=== PATIENT | female | born 1960 | race Caucasian/White ===

== ENCOUNTER 2018-01-21 02:40 | Inpatient (IN) | END 2018-02-09 20:25 | disposition home health service (06) | DRG 472 ==

== ENCOUNTER 2019-01-16 20:59 | Inpatient (IN) | payer OTHER ==
[~2019-01-16] VITALS: Ht 160 cm; Wt 66.6 kg
[~2019-01-16 20:59] MED LIST: ETOMIDATE 20 MG INJ ONE; GABA100C14 PO; ROCURONIUM 50 MG INJ ONE
[2019-01-16] MEDS ORDERED: SODIUM CHLORIDE 0.9% 1L BAG IV* STA (21:19)
[2019-01-16] MEDS ORDERED: CEFEPIME 2GM/50 ML (PMX) 50 ML IVPB STA (21:19)
[2019-01-16] MEDS ORDERED: VANCOMYCIN 1 GM (PMX) 250 ML IVPB ONE (21:30)
[2019-01-16] MEDS ORDERED: PROPOFOL 100 ML ONE (21:41)
[2019-01-16] MEDS ORDERED: SOD CHLORIDE 0.9% 0 ML IV ONE (22:00)
[2019-01-16] MEDS ORDERED: PROPOFOL 100 ML IV ONE (22:00)
[2019-01-16] MEDS ORDERED: NORepinephrine 8MG/250 ML (PMX 250 ML IV SCH (22:00)
[2019-01-16] MEDS ORDERED: VANCOMYCIN IV PER PHARMACY XX SCH (23:30)
[2019-01-16] MEDS ORDERED: SODIUM BICARBONATE (IV ADD) 150 MEQ in DEXTROSE 5% 1,000 ML IV SCH (23:30)
[2019-01-16] MEDS ORDERED: PIPER-TAZO 2.25 GM (PMX) 50 ML IVPB SCH (23:30)
--- NOTE | 2019-01-16 23:32 | HP ---
Date/Time of Note Date/Time of Note DATE: 01/16/19 TIME: 23:31 Assessment/Plan VTE Prophylaxis SCD applied (from Nsg): Yes Pharmacological prophylaxis: NA/contraindicated Pharm contraindication: low risk/ambulating Lines/Catheters IV Catheter Type (from Nrsg): Saline Lock Assessment/Plan Hospital Course This is a 58-year-old female being admitted to the ICU floor for: #1 Septic shock: Secondary to pneumoperitoneum, UTI, infected wound versus other. Broad-spectrum antibiotics of vancomycin and Zosyn renally dose. Trend lactic acid levels. #2 acute ventilatory dependent respiratory failure: Secondary to underlying septic shock and severe anemia. Continue vent management. Serial ABGs. Pulmonology consultation #3 Severe macrocytic anemia: Patient noted to have a hemoglobin of 2.6. Etiology unknown at the current time. Concern for possible intra-abdominal bleeding. Will obtain a CTA of the chest abdomen and pelvis to further evaluate. Patient has been ordered 4 units of packed red blood cells By by the ED. We will continue to monitor closely. And give additional hemoglobin with goal greater than 7.5 #5 acute versus acute on chronic kidney disease with severe metabolic acidosis: Unsure of patient's baseline creatinine. This possibly could be secondary to hemodynamics, NSAID use, shock. Patient will be receiving blood transfusions. We will also put the patient on a 150 M EQ sodium bicarb drip at 100 cc an hour. Monitor renal function. Avoid NSAIDs. Renally dose antibiotics. Will consult nephrology Dr. Kirk #6 non-STEMI type I versus type II, suspect demand secondary to above. Will trend cardiac enzymes. Will check an echocardiogram. Will consult cardiology. #7 Profound leukocytosis: Etiology could be secondary to profound anemia, underlying malignancy, septic shock: Patient has been initiated on broad- spectrum antibiotics. She also will be receiving blood transfusion. Will monitor closely. She was noted to be hypothermic as well and is currently on heating therapy with a warming blanket #8 thrombocytosis: Likely secondary to profound anemia, versus other. Will monitor closely. #9 severe metabolic acidosis with lactic acidosis: Patient's pH noted to be 6.9 and a bicarb of 2 on ABG. Continue vent management. Bicarb drip and blood. #10 DVT GI prophylaxis: SCDs, Protonix Greater than 45 minutes critical care time was spent on care management this patient. CODE STATUS: Full code Result Diagram: 01/16/19212901/16/192128 Results 24hrs Laboratory Tests Test 01/16/19 21:19 01/16/19 21:28 01/16/19 21:29 01/16/19 21:30 Blood Gas Blood arterial Specimen Source Arterial Blood 01/16/2019 9:17:5 Date Drawn 3 PM Arterial Blood pH 6.902 *L (Temp corrected) Arterial Blood 10.7 L pCO2 (Temp correct) Arterial Blood 200.4 H pO2 (Temp corrected) Arterial Blood 2.1 *L HCO3 Arterial Blood -27.4 L Base Excess Arterial Blood 98.6 H Oxygen Saturation Jose Test N/A Arterial Blood Right Brachial Gas Puncture Site Arterial 1.4 Blood Carboxyhemo globin Arterial Blood 0.6 Methemoglobin Blood Gas A-a O2 501.9 H Differential Oxyhemoglobin 96.6 Percent Blood Gas 37.0 Temperature Blood Gas MASK - NRB Modality FiO2 100.0 Blood Gas Herminia FREY MD Critical Value Read Back Blood Gas AA Notified Whom Blood Gas 01/16/2019 9:27:0 Notified Time 0 PM Phosphorus Level 12.3 H Magnesium Level 2.7 H Prothrombin Time 28.8 H Prothrombin Time 2.3 Ratio INR International 2.71 Normalized Ratio Activated 33.8 Partial Thrombopl ast Time Sodium Level 139 Potassium Level 4.3 Chloride Level 97 Carbon Dioxide < 5 *L Level Anion Gap 37 H Blood Urea 92 H Nitrogen Creatinine 4.01 H Est Glomerular 12 L Filtrat Rate mL/min Glucose Level 179 Lactic Acid Level 23.3 *H Calcium Level 8.0 L Total Bilirubin 0.0 L Direct Bilirubin 0.00 Indirect 0.0 Bilirubin Aspartate Amino 100 H Transf (AST/SGOT) Alanine 34 Aminotransferase (ALT/SGPT) Alkaline 186 H Phosphatase Troponin I 0.405 *H C-Reactive 16.2 H Protein Total Protein 6.0 L Albumin 2.8 L Globulin 3.20 Albumin/Globulin 0.87 Ratio White Blood Count 91.3 H Red Blood Count 0.82 L Hemoglobin 2.3 *L Hematocrit 9.3 L Mean Corpuscular 113.4 H Volume Mean Corpuscular 28.0 L Hemoglobin Mean Corpuscular 24.7 L Hemoglobin Concen t Red Cell 26.4 H Distribution Width Platelet Count 805 H Mean Platelet 9.7 Volume Immature 21.200 H Granulocytes % Neutrophils % Segmented 52 Neutrophils % (Manual) Band Neutrophils 11 H % (Manual) Lymphocytes % Lymphocytes % 27 (Manual) Monocytes % Monocytes % 2 (Manual) Eosinophils % Basophils % Myelocytes % 7 H (Manual) Nucleated Red 4 H Blood Cells % Immature 19.330 H Granulocytes # Neutrophils # Neutrophils # 56.6 H (Manual) Band Neutrophils 10.0 H # Lymphocytes 24.6 H (Manual) Lymphocytes # Monocytes # Monocytes # 1.8 H (Manual) Eosinophils # Basophils # Myelocytes # 6.3 H Nucleated Red Blood Cells # Pathologist Y Review (Hematolog y) Platelet Estimate INCREASED Polychromasia 3+ Poikilocytosis 3+ Anisocytosis 2+ Microcytosis 1+ Macrocytosis 1+ Test 01/16/19 21:54 01/16/19 22:51 Blood Gas Blood arterial Specimen Source Arterial Blood 01/16/2019 11:16: Date Drawn 59 PM Arterial Blood pH 6.892 *L (Temp corrected) Arterial Blood 26.9 L pCO2 (Temp correct) Arterial Blood 529.7 H pO2 (Temp corrected) Arterial Blood 5.1 *L HCO3 Arterial Blood -24.4 L Base Excess Arterial Blood 99.7 H Oxygen Saturation Jose Test ACCEPTAB Arterial Blood Right Brachial Gas Puncture Site Arterial 0.1 Blood Carboxyhemo globin Arterial Blood 0.6 Methemoglobin Blood Gas A-a O2 156.4 H Differential Oxyhemoglobin 99.0 Percent Blood Gas 37.0 Temperature Blood Gas 20.0 Respiration Rate Blood Gas Actual 20 Respiration Rate Blood Gas VENT - AC Modality FiO2 100.0 Blood Gas Tidal 450.0 Volume Blood Gas EKBALJEET LOPEZ Critical Value Read Back Blood Gas MALENA CURIEL Notified Whom Blood Gas 01/16/2019 11:29: Notified Time 10 PM Urine Color YELLOW Urine Clarity TURBID A Urine pH 5.0 Urine Specific 1.015 [place] Urine Ketones NEGATIVE Urine Nitrite NEGATIVE Urine Bilirubin NEGATIVE Urine NEGATIVE Urobilinogen Urine Leukocyte 1+ H Esterase Urine Microscopic 63 H RBC Urine Microscopic > 182 H WBC Urine Yeast FEW A (Budding) Urine Hemoglobin 3+ H Urine Glucose NEGATIVE Urine Total 2+ H Protein HPI/ROS Admit Date/Time Admit Date/Time Hx of Present Illness Chief complaint: Confused and weak This is a 58-year-old female with a past medical history of ambulatory dysfunction who was found confused and weak by her sister at home. Patient was brought in via EMS and was noted to be confused but she was answering questions appropriately according to the ER doctor. Patient in the emergency department was also noted to be hypothermic and given her low GCS score patient was emergently intubated. She was found to have severe anemia with a hemoglobin of 2 along with lactic acidosis and renal failure. Patient was given a central line and she was given a warming blanket. She was initiated on antibiotics. Patient is currently intubated at the bedside. She appears to have sacral wounds as well as lateral left hip wound. She does appear very pale in appearance. Her pupils are sluggish bilaterally to light. She is currently intubated and connected to the vent. I did speak to the sister Amalia over the phone she does state that the sister lives with her and her family member. She has been in her room by herself and refusing to get help from her family members. Amalia did want to take her to the doctor's however the patient kept refusing. She was complaining of pain over the last few weeks and she had been taking ibuprofen daily. She is also having a very poor appetite. Of note it was mentioned earlier that the patient was paraplegic however when I discussed with the sister regarding her status she denied that the patient was paraplegic instead she reported that she does have weakness of 1 of her limbs that has affected her ambulation. Allergies: Unable to obtain Medications: Unable to obtain ROS Subjective hx not possible: pt critical (Intubated) PMH/Family/Social Past Medical History Unable to obtain Medications Current Medications Norepinephrine 250 ml @ 1.875 mls/ hr TITRATE IV ; Start 01/16/19 at 22:00 Sodium Bicarbonate 150 meq/Dextrose 1,000 ml @ 100 mls/hr Q10H IV ; Start 01/16/19 at 23:30; Status UNV Vancomycin HCl (Vanco Iv Per Pharmacy) VANCOMYCIN PER PHARMACY PER PROTOCOL XX ; Start 01/16/19 at 23:30; Status UNV Piperacillin Sod/ Tazobactam Sod 50 ml @ 100 mls/hr Q12 IVPB ; Start 01/16/19 at 23:30; Status UNV Coded Allergies: Unknown: Unable to obtain (Unverified , 01/16/19) Past Surgical History Unable to obtain Family History Significant Family History: other (Unable to obtain) Social History Alcohol Use: other (Previous heavy alcohol use as per the sister) Drug Use: none Exam/Review of Systems Vital Signs Vitals Vital Signs Date Temp Pulse Resp B/P (MAP) Pulse Ox O2 O2 Flow FiO2 Time Delivery Rate 01/16/19 89 15 133/69 100 Mechanical 23:00 (90) Ventilator 01/16/19 100 21:50 01/16/19 92.8 21:12 Exam Exam General: Intubated, sedated, pupils sluggish to light HEENT: Atraumatic, normocephalic. Pupils sluggish to light bilaterally, currently intubated connected to vent Neck: Supple with full range of motion. No rigidity or meningismus Chest: Nontender Lungs: Clear to auscultation bilaterally no crackles rales or wheezing Heart: Normal S1-S2, Regular rhythm and rate. No murmur, S3, or S4 Abdomen: Soft , nondistended , bowel sounds are present. No guarding no rebound tenderness , No masses or organomegaly. Extremities: Normal to inspection, no edema no cyanosis Neurologic: Intubated, sedated. Unable to assess Skin: Very pale appearing Additional Comments PROCEDURE: XR Chest. CLINICAL INDICATION: Sepsis TECHNIQUE: Single frontal view of the chest. COMPARISON: None available FINDINGS: Support lines and tubes: Endotracheal tube tip well positioned at the level of the mid tracheal shadow. Cardiac/vascular structures: Normal cardiomediastinal silhouette. Pulmonary: Lungs are clear. No pleural effusion. No evidence of pneumothorax. Osseous structures: Cervical spine hardware. Soft tissues: Normal IMPRESSION: 1. Appropriate position of endotracheal tube. 2. Lungs are clear. RPTAT:AAJJ Physician Sergio Date Time Electronically viewed and signed by Niesha Jimenez Physician on 01/16/2019 22:56 MH/ CC: ELBA FREY MD [id number] EKG Normal Sinus Rhythm at 93 bpm Normal axis QTC prolongation at [address] abnormality in the lateral and inferior leads No STEMI. BLAISE MARTINS Jan 16, 2019 23:32
[2019-01-17] VITALS (43 sets, daily range): BP systolic 97–145; BP diastolic 55–104; PULSE 85–113; RESP 11–34; BMI 20.8
[2019-01-17] MEDS ORDERED: ACETAMINOPHEN 650MG/20.3ML CUP PO PRN
[2019-01-17] MEDS ORDERED: IPRATROPIUM (HFA) 12.9 GM INHALER INH PRN
[2019-01-17] MEDS ORDERED: ALBUTEROL HFA 8 GM INHALER INH PRN
--- NOTE | 2019-01-17 00:40 | ERD ---
ER Documentation Chief Complaint Chief Complaint [id number] from home,found lethargic,hx paraplegic HPI 58-year-old female with unknown past medical history other than paraplegia brought in by ambulance from home after she was found confused and weak by her sister. Last known well was at 2 PM today. Per medics, the patient was in a very bad condition, covered in stool, poorly taken care of. She seemed cyanotic but improved with some oxygen. She was noted to be very pale. Patient is otherwise confused and unable to answer questions appropriately. ROS Limited due to patient's altered mental status Allergies Allergies: Coded Allergies: Unknown: Unable to obtain (Unverified , 01/16/19) PMhx/Soc Unable to obtain Medical and Surgical Hx: Unable to obtain Hx Alcohol Use: No (unable to obtain) Hx Substance Use: No (unable to obtain) Hx Tobacco Use: No (unable to obtain) Smoking Status: Unknown if ever smoked FmHx Unable to obtain Physical Exam Vitals Vital Signs Date Temp Pulse Resp B/P (MAP) Pulse Ox O2 O2 Flow FiO2 Time Delivery Rate 01/16/19 89 20 133/69 100 Mechanical 23:00 (90) Ventilator 01/16/19 90 20 142/78 100 Mechanical 22:30 (99) Ventilator 01/16/19 91 20 149/86 100 Mechanical 22:00 (107) Ventilator 01/16/19 92 20 100 21:50 01/16/19 95 20 108/75 100 Mechanical 21:30 (86) Ventilator 01/16/19 99 22 141/84 100 Mechanical 21:17 (103) Ventilator 01/16/19 92.8 98 24 153/87 78 21:12 (109) 01/16/19 100 24 153/87 Non 21:08 (109) Rebreather Physical Exam INITIAL VITAL SIGNS: Reviewed by me GENERAL: Patient is lying on gurney, moaning, appears toxic and very pale HEAD: Normocephalic, atraumatic EYES: No scleral icterus. Pale conjunctiva. PERRL. ENT: Mucous membranes dry, no erythema or tonsillar exudates. Airway patent. NECK: Supple. No masses. Full range of motion. RESPIRATORY: Tachypneic. Clear to auscultation bilaterally. No wheezing, No rales, No rhonchi. CV: Tachycardic with regular rhythm. No murmurs, No rubs or gallops. ABDOMEN: Soft, non-distended. No guarding. No rebound. No pulsatile mass. Bowel sounds normal. BACK: No step-offs EXTREMITIES: No edema. No clubbing or cyanosis. Cap refill is delayed. Left hip with decubitus ulcer SKIN: Warm and dry. Decreased turgor. No obvious rash, petechiae or purpura. NEUROLOGIC: Awake, confused, moaning, incomprehensible speech. Moving upper extremities spontaneously. Does not move lower extremities spontaneously. Eyes open spontaneously. Result Diagram: 01/17/19 0034 01/17/19 0034 Results 24 hrs Laboratory Tests Test 01/16/19 01:59 01/16/19 21:19 01/16/19 21:28 01/16/19 21:29 Plasma Fibrin >10 and Degradation Pro <40 ug/ml ducts D-Dimer 3367.84 ng/ml D-Dimer Comment Blood Gas Blood arterial Specimen Source Arterial Blood 01/16/2019 9:17: Date Drawn 53 PM Arterial Blood 6.902 pH (Temp corrected ) Arterial Blood 10.7 mmhg pCO2 (Temp correct) Arterial Blood 200.4 mmHG pO2 (Temp corrected ) Arterial Blood 2.1 mmol/L HCO3 Arterial Blood -27.4 mmol/L Base Excess Arterial Blood 98.6 mmHG Oxygen Saturati on Jose Test N/A Arterial Blood Right Brachial Gas Puncture Site Arterial 1.4 % Blood Carboxyhe moglobin Arterial Blood 0.6 % Methemoglobin Blood Gas A-a 501.9 mmHg O2 Differential Oxyhemoglobin 96.6 % Percent Blood Gas 37.0 C Temperature Blood Gas MASK - NRB Modality FiO2 100.0 % Blood Gas EKMEHerminia ESQUIVEL MD Critical Value Read Back Blood Gas AA Notified Whom Blood Gas 01/16/2019 9:27: Notified Time 00 PM Phosphorus 12.3 mg/dl Level Magnesium Level 2.7 mg/dl Prothrombin 28.8 Sec Time Prothrombin 2.3 Time Ratio INR 2.71 International Normalized Rati o Activated 33.8 Sec Partial Thrombo plast Time Sodium Level 139 mmol/L Potassium Level 4.3 mmol/L Chloride Level 97 mmol/L Carbon Dioxide < 5 mmol/L Level Anion Gap 37 Blood Urea 92 mg/dl Nitrogen Creatinine 4.01 mg/dl Est Glomerular 12 mL/min Filtrat Rate mL/min Glucose Level 179 mg/dl Lactic Acid 23.3 mmol/L Level Calcium Level 8.0 mg/dl Total Bilirubin 0.0 mg/dl Direct 0.00 mg/dl Bilirubin Indirect 0.0 mg/dl Bilirubin Aspartate Amino 100 IU/L Transf (AST/SGO T) Alanine 34 IU/L Aminotransferas e (ALT/SGPT) Alkaline 186 IU/L Phosphatase Troponin I 0.405 ng/ml C-Reactive 16.2 mg/dl Protein Total Protein 6.0 g/dl Albumin 2.8 g/dl Globulin 3.20 g/dl Albumin/Globuli 0.87 n Ratio Test 01/16/19 21:30 01/16/19 21:54 01/16/19 22:51 01/16/19 23:14 White Blood 91.3 10^3/ul Count Red Blood Count 0.82 10^6/ul Hemoglobin 2.3 g/dl Hematocrit 9.3 % Mean 113.4 fl Corpuscular Volume Mean 28.0 pg Corpuscular Hemoglobin Mean 24.7 g/dl Corpuscular Hemoglobin Conc ent Red Cell 26.4 % Distribution Width Platelet Count 805 10^3/UL Mean Platelet 9.7 fl Volume Immature 21.200 % Granulocytes % Neutrophils % % Segmented 52 % Neutrophils % (Manual) Band 11 % Neutrophils % (Manual) Lymphocytes % % Lymphocytes % 27 % (Manual) Monocytes % % Monocytes % 2 % (Manual) Eosinophils % % Basophils % % Myelocytes % 7 % (Manual) Nucleated Red 4 % Blood Cells % Immature 19.330 10^3/ul Granulocytes # Neutrophils # 10^3/ul Neutrophils # 56.6 10^3/ul (Manual) Band 10.0 10^3/ul Neutrophils # Lymphocytes 24.6 10^3/ul (Manual) Lymphocytes # 10^3/ul Monocytes # 10^3/ul Monocytes # 1.8 10^3/ul (Manual) Eosinophils # 10^3/ul Basophils # 10^3/ul Myelocytes # 6.3 10^3/ul Nucleated Red 10^3/ul Blood Cells # Pathologist Y Review (Hematol ogy) Platelet INCREASED Estimate Polychromasia 3+ Poikilocytosis 3+ Anisocytosis 2+ Microcytosis 1+ Macrocytosis 1+ Erythrocyte > 130.0 mm/Hr Sedimentation Rate C-Reactive 14.2 mg/dl Protein Blood Gas Blood arterial Specimen Source Arterial Blood 01/16/2019 11:16 Date Drawn :59 PM Arterial Blood 6.892 pH (Temp corrected ) Arterial Blood 26.9 mmhg pCO2 (Temp correct) Arterial Blood 529.7 mmHG pO2 (Temp corrected ) Arterial Blood 5.1 mmol/L HCO3 Arterial Blood -24.4 mmol/L Base Excess Arterial Blood 99.7 mmHG Oxygen Saturati on Jose Test ACCEPTAB Arterial Blood Right Brachial Gas Puncture Site Arterial 0.1 % Blood Carboxyhe moglobin Arterial Blood 0.6 % Methemoglobin Blood Gas A-a 156.4 mmHg O2 Differential Oxyhemoglobin 99.0 % Percent Blood Gas 37.0 C Temperature Blood Gas 20.0 Respiration Rate Blood Gas 20 Actual Respiration Rat e Blood Gas VENT - AC Modality FiO2 100.0 % Blood Gas Tidal 450.0 mL Volume Blood Gas SHANTE LOPEZ Critical Value Read Back Blood Gas MALENA MILL HELPER Notified Whom Blood Gas 01/16/2019 11:29 Notified Time :10 PM Urine Color YELLOW Urine Clarity TURBID Urine pH 5.0 Urine Specific 1.015 [place] Urine Ketones NEGATIVE mg/dL Urine Nitrite NEGATIVE mg/dL Urine Bilirubin NEGATIVE mg/dL Urine NEGATIVE mg/dL Urobilinogen Urine Leukocyte 1+ Evans/ul Esterase Urine 63 /HPF Microscopic RBC Urine > 182 /HPF Microscopic WBC Urine Yeast FEW /HPF (Budding) Urine 3+ mg/dL Hemoglobin Urine Glucose NEGATIVE mg/dL Urine Total 2+ mg/dl Protein Lactic Acid 17.8 mmol/L Level Current Medications Medications Dose Sig/Skyler Start Time Status Last (Trade) Ordered Route PRN Stop Time Admin Dose Reason Admin Sodium 1,500 ml BOLUS OVER 2 01/16/19 DC 01/16/19 Chloride HOURS STAT 21:19 21:43 (NS) IV* 01/16/19 21:23 Cefepime HCl 50 ml @ ONCE STAT 01/16/19 DC 01/16/19 100 mls/hr IVPB 21:19 21:42 01/16/19 21:48 Vancomycin 250 ml @ ONCE ONCE 01/16/19 DC 01/16/19 HCl 125 mls/hr IVPB 21:30 22:46 01/16/19 23:29 250 ml @ TITRATE IV 01/16/19 Norepinephrin 1.875 mls/ 22:00 e hr Propofol 100 ml @ 0 TITRATE 01/16/19 DC 01/16/19 mls/hr ONCE IV 22:00 22:33 01/16/19 22:01 Propofol 100 ml @ ud STK-MED 01/16/19 DC ONCE .ROUTE 21:41 01/16/19 21:42 Sodium 0 ml @ 0 Q0M ONCE 01/16/19 DC 01/16/19 Chloride mls/hr IV 22:00 23:25 01/16/19 22:01 Sodium 1,000 ml @ Q10H IV 01/16/19 01/17/19 Bicarbonate 100 mls/hr 23:30 00:42 150 meq/Dextrose Vancomycin VANCOMYCIN PER 01/16/19 HCl (Vanco PER PHARMACY PROTOCOL XX 23:30 Iv Per Pharmacy) Piperacillin 50 ml @ Q12 IVPB 01/16/19 01/17/19 Sod/ 100 mls/hr 23:30 00:29 Tazobactam Sod Procedures/MDM EMERGENT LABS AND DIAGNOSTIC STUDIES: Lab Results above were reviewed and interpreted by me. CBC: Severe leukocytosis, concerning for infection versus malignancy. Severe an emia with hemoglobin 2.1. Thrombocytosis CMP: Evidence of renal failure with severe acidosis. No evidence of electrolyte abnormality, hypoglycemia, liver failure, or biliary obstruction Troponin elevated, consistent with myocardial ischemia Lactate significantly elevated, consistent with tissue hypoperfusion and septic shock UA: Consistent with infection CRP elevated consistent with infection 12-lead EKG was interpreted by Kalina Bains MD: Normal Sinus Rhythm at 93 bpm Normal axis QTC prolongation at [address] abnormality in the lateral and inferior leads No STEMI. Radiology Results as interpreted by Radiology below were reviewed by Tamika Bains MD: Chest x-ray: Lungs clear, ET tube in appropriate location CT head shows no acute abnormalities Initial Nursing notes reviewed. Previous Medical Records requested via the Electronic Health Record. EMERGENCY DEPARTMENT COURSE / MEDICAL DECISION MAKING: Endotracheal Intubation by me: Pre assessment performed. See preceding note for details. Pre-oxygenation performed with 100% oxygen RSI: Performed w/o complication or hypoxic events. Medications as ordered. Blade: Mac 4 ET Tube: 7.5 cm Depth: 22 cm at the lip Intubation confirmed by colorimetric CO2, equal breath sounds, quiet over the stomach. Chest X-ray 1V Interpreted by me: 2 cm above the regis ET tube. Normal soft tissue, No pneumothorax. Central Line Placement by me: Patient consented, sterilely draped, full prep, gown, glove, mask, time out performed. Anesthesia: 1% lidocaine locally Location: Left IJ Device: Multiple lumen Technique: Seldinger technique. Secured with suture. Results: Venous return from all ports with easy saline flush. No complications. Guide wire retrieved and disposed of. Chest X-ray 1V Interpreted by me: Central line in SVC, Normal soft tissue, No evidence of pneumothorax. MDM Patient is presenting in a very critical condition. She was noted to have hypothermia upon arrival. Given her low GCS, she was immediately intubated. Sepsis workup was initiated. Warming measures were initiated. Broad-spectrum antibiotics and IV fluids were given. Central line was placed due to her critical condition. However the patient never required vasopressors. Labs were notable for severe anemia, for which 4 units of blood were ordered. Since she was hemodynamically stable without any signs of actual bleeding on exam, Code Crimson was not activated. Patient has many lab abnormalities consistent with multiorgan failure. patient's infectious symptoms have not stabilized and the patient is at risk of rapid decompensation. The patient will be admitted for careful hydration, an tibiotic therapy, and infectious source control. Severe Sepsis Assessment: Infectious Source: Suspected UTI End organ damage indicated by: Lactate > 2.0 mmol/L Reconnaissance Crewmember > 2.0 Severe Sepsis Management: Blood Cultures X 2 before broad spectrum antibiotics initiated within 3 hours of recognition. 30 ml/kg NS bolus Completed Initial Lactate: 23 Repeat Lactate 17 Critical Care: Time: 70 minutes Treatments/Evaluations: Emergent fluid management, while maintaining close respiratory support. Immediate broad spectrum antibiotic therapy. Simultaneous assessment for possible sources in order to direct therapy. Consideration for invasive and chemical support to prevent respiratory or cardiac collapse. Septic Shock Assessment (1 hour post 30 ml/kg fluid bolus): Hypotension (SBP < 90 or 40 mmHg drop, MAP < 65): No Lactic acid > 4.0 yes Perfusion Reassessment for Septic Shock @0100: Temp 96.1F Pulse94, RR 20, BP 110/65 Heart Exam: Regular rate and rhythm Lung Exam: No Crackles Capillary Refill: Delayed Peripheral Pulses: Radially present Skin: pale Hypotensive Treatment (not required for isolated lactic acid elevation): Comfort Care: No Central LIne: yes Vasopressor started: no Accepting Care Team: Current data and ongoing care discussed. Time: Time of admission Primary Provider: Dr. Sevilla Departure Diagnosis: Primary Impression: Septic shock Additional Impressions: Severe anemia Leukocytosis Leukocytosis type: unspecified Qualified Codes: D72.829 - Elevated white blood cell count, unspecified Acute renal failure Acute renal failure type: unspecified Qualified Codes: N17.9 - Acute kidney failure, unspecified Pyelonephritis Acute respiratory failure Respiratory failure complication: unspecified whether with hypoxia or hypercapnia Qualified Codes: J96.00 - Acute respiratory failure, unspecifi ed whether with hypoxia or hypercapnia Metabolic acidosis NSTEMI (non-ST elevated myocardial infarction) Acute encephalopathy Condition: Critical ELBA BAINS MD Jan 17, 2019 00:40
[2019-01-17] MEDS ORDERED: PANTOPRAZOLE 40 MG INJ IV SCH (06:00)
[2019-01-17] MEDS: POTASSIUM CHLORIDE 50 ML IVPB SCH ×6 (07:25→20:35)
--- NOTE | 2019-01-17 08:16 | CONS ---
Assessment/Plan Assessment/Plan Hospital Course (Demo Recall) 1) pneumoperitoneum and sepsis could be related to pt taking motrin for some pain continue with vanco/zosyn at present to renally dose them await decision by family regarding surgery vs hospice 2)severe anemia pt is being transfused only smears of stool since admission to get hemoccult 3) ARF with pyuria and hematuria improving with hydration and blood tx await urine cx results 4) elevated troponins likely due to stress from severe anemia 5) hepatitis again likely due to sepsis and severe anemia check hep serologies 6) L hip eschar/decubitus unstageable wound cx was ordered 7) hypoalbuminemia pt came in with low albumin, she has likely been sick or not eating well for a while Consultation Date/Type/Reason Admit Date/Time Date of Consultation: Jan 17, 2019 Type of Consult ID Date/Time of Note DATE: 01/17/19 TIME: 08:02 Hx of Present Illness pt comes in due to weakness and confusion pt has had pain in last few weeks and has been taking motrin for it pt has refused in the recent past to see a physician she does not have paraplegia according to the sister but only has weakness of one limb pt was emergently intubated and found to have profound anemia with renal failure Past Medical History Medications Current Medications Norepinephrine 250 ml @ 1.875 mls/ hr TITRATE IV ; Start 01/16/19 at 22:00 Sodium Bicarbonate 150 meq/Dextrose 1,000 ml @ 100 mls/hr Q10H IV Last administered on 01/17/19at 00:42; Admin Dose 100 MLS/HR; Start 01/16/19 at 23:30 Vancomycin HCl (Vanco Iv Per Pharmacy) VANCOMYCIN PER PHARMACY PER PROTOCOL XX ; Start 01/16/19 at 23:30 Piperacillin Sod/ Tazobactam Sod 50 ml @ 100 mls/hr Q12 IVPB Last administered on 01/17/19at 00:29; Admin Dose 100 MLS/HR; Start 01/16/19 at 23:30 Albuterol (Ventolin Hfa) 4 puff Q2H RESP THERAPY PRN INH SHORTNESS OF BREATH; Start 01/17/19 at 00:00 Ipratropium Pray (Atrovent Hfa) 4 puff Q2H RESP THERAPY PRN INH SHORTNESS OF BREATH; Start 01/17/19 at 00:00 Acetaminophen (Tylenol Liquid) 650 mg Q6H PRN PO PAIN LEVEL 1-3 OR FEVER; Start 01/17/19 at 00:00 Pantoprazole (Protonix Iv) 40 mg DAILY@06 IV Last administered on 01/17/19at 07:26; Admin Dose 40 MG; Start 01/17/19 at 06:00 Potassium Chloride 50 ml @ 25 mls/hr Q2H IVPB Last administered on 01/17/19at 07:25; Admin Dose 25 MLS/HR; Start 01/17/19 at 07:00; Stop 01/17/19 at 12:59 Allergies: Coded Allergies: Unknown: Unable to obtain (Unverified , 01/16/19) Social History Alcohol Use: other (Previous heavy alcohol use as per the sister) Smoking Status: Unknown if ever smoked Drug Use: none Exam/Review of Systems Exam Vitals Vital Signs Date Temp Pulse Resp B/P (MAP) Pulse Ox O2 O2 Flow FiO2 Time Delivery Rate 01/17/19 111 137/74 100 Mechanical 08:00 (95) Ventilator 01/17/19 99.8 29 07:30 01/17/19 30 06:20 Intake and Output 01/16/19 01/16/19 01/17/19 1515:00 23:00 07:00 IntakeIntake Total 50 ml 2334.5 ml OutputOutput Total 650 ml BalanceBalance 50 ml 1684.5 ml Exam intubated, NOT on pressors Constitutional: non-verbal Respiratory: clear to auscultation Cardiovascular: regular rate and rhythm Gastrointestinal: distended, other (no BS) Extremities: other (L hip eschar, unstageable but no significant surrounding redness) Results Result Diagram: 01/17/19 0430 01/17/19 0430 Results 24hrs Laboratory Tests Test 01/16/19 21:19 01/16/19 21:28 01/16/19 21:29 01/16/19 21:30 Blood Gas Blood arterial Specimen Source Arterial Blood 01/16/2019 9:17:5 Date Drawn 3 PM Arterial Blood pH 6.902 *L (Temp corrected) Arterial Blood 10.7 L pCO2 (Temp correct) Arterial Blood 200.4 H pO2 (Temp corrected) Arterial Blood 2.1 *L HCO3 Arterial Blood -27.4 L Base Excess Arterial Blood 98.6 H Oxygen Saturation Jose Test N/A Arterial Blood Right Brachial Gas Puncture Site Arterial 1.4 Blood Carboxyhemo globin Arterial Blood 0.6 Methemoglobin Blood Gas A-a O2 501.9 H Differential Oxyhemoglobin 96.6 Percent Blood Gas 37.0 Temperature Blood Gas MASK - NRB Modality FiO2 100.0 Blood Gas Herminia FREY MD Critical Value Read Back Blood Gas AA Notified Whom Blood Gas 01/16/2019 9:27:0 Notified Time 0 PM Phosphorus Level 12.3 H Magnesium Level 2.7 H Prothrombin Time 28.8 H Prothrombin Time 2.3 Ratio INR International 2.71 Normalized Ratio Activated 33.8 Partial Thrombopl ast Time Sodium Level 139 Potassium Level 4.3 Chloride Level 97 Carbon Dioxide < 5 *L Level Anion Gap 37 H Blood Urea 92 H Nitrogen Creatinine 4.01 H Est Glomerular 12 L Filtrat Rate mL/min Glucose Level 179 Lactic Acid Level 23.3 *H Calcium Level 8.0 L Total Bilirubin 0.0 L Direct Bilirubin 0.00 Indirect 0.0 Bilirubin Aspartate Amino 100 H Transf (AST/SGOT) Alanine 34 Aminotransferase (ALT/SGPT) Alkaline 186 H Phosphatase Troponin I 0.405 *H C-Reactive 16.2 H 14.2 H Protein Total Protein 6.0 L Albumin 2.8 L Globulin 3.20 Albumin/Globulin 0.87 Ratio White Blood Count 91.3 H Red Blood Count 0.82 L Hemoglobin 2.3 *L Hematocrit 9.3 L Mean Corpuscular 113.4 H Volume Mean Corpuscular 28.0 L Hemoglobin Mean Corpuscular 24.7 L Hemoglobin Concen t Red Cell 26.4 H Distribution Width Platelet Count 805 H Mean Platelet 9.7 Volume Immature 21.200 H Granulocytes % Neutrophils % Segmented 52 Neutrophils % (Manual) Band Neutrophils 11 H % (Manual) Lymphocytes % Lymphocytes % 27 (Manual) Monocytes % Monocytes % 2 (Manual) Eosinophils % Basophils % Myelocytes % 7 H (Manual) Nucleated Red 4 H Blood Cells % Immature 19.330 H Granulocytes # Neutrophils # Neutrophils # 56.6 H (Manual) Band Neutrophils 10.0 H # Lymphocytes 24.6 H (Manual) Lymphocytes # Monocytes # Monocytes # 1.8 H (Manual) Eosinophils # Basophils # Myelocytes # 6.3 H Nucleated Red Blood Cells # Pathologist Y Review (Hematolog y) Platelet Estimate INCREASED Polychromasia 3+ Poikilocytosis 3+ Anisocytosis 2+ Microcytosis 1+ Macrocytosis 1+ Erythrocyte > 130.0 H Sedimentation Rate Test 01/16/19 21:54 01/16/19 22:51 01/16/19 23:14 01/16/19 23:42 Blood Gas Blood arterial Specimen Source Arterial Blood 01/16/2019 11:16: Date Drawn 59 PM Arterial Blood pH 6.892 *L (Temp corrected) Arterial Blood 26.9 L pCO2 (Temp correct) Arterial Blood 529.7 H pO2 (Temp corrected) Arterial Blood 5.1 *L HCO3 Arterial Blood -24.4 L Base Excess Arterial Blood 99.7 H Oxygen Saturation Jose Test ACCEPTAB Arterial Blood Right Brachial Gas Puncture Site Arterial 0.1 Blood Carboxyhemo globin Arterial Blood 0.6 Methemoglobin Blood Gas A-a O2 156.4 H Differential Oxyhemoglobin 99.0 Percent Blood Gas 37.0 Temperature Blood Gas 20.0 Respiration Rate Blood Gas Actual 20 Respiration Rate Blood Gas VENT - AC Modality FiO2 100.0 Blood Gas Tidal 450.0 Volume Blood Gas EKBALJEET LOPEZ Critical Value Read Back Blood Gas MALENA PAYROLL BOOKKEEPER Notified Whom Blood Gas 01/16/2019 11:29: Notified Time 10 PM Urine Color YELLOW Urine Clarity TURBID A Urine pH 5.0 Urine Specific 1.015 [place] Urine Ketones NEGATIVE Urine Nitrite NEGATIVE Urine Bilirubin NEGATIVE Urine NEGATIVE Urobilinogen Urine Leukocyte 1+ H Esterase Urine Microscopic 63 H RBC Urine Microscopic > 182 H WBC Urine Yeast FEW A (Budding) Urine Hemoglobin 3+ H Urine Glucose NEGATIVE Urine Total 2+ H Protein Lactic Acid Level 17.8 *H Fibrinogen 343.0 Test 01/17/19 00:34 01/17/19 02:02 01/17/19 04:30 01/17/19 05:27 White Blood Count 60.8 #H 14.4 #H Red Blood Count 1.15 #L 1.89 #L Hemoglobin 3.3 #*L 5.4 #*L Hematocrit 12.1 #L 17.0 #L Mean Corpuscular 105.2 H 89.9 Volume Mean Corpuscular 28.7 L 28.6 L Hemoglobin Mean Corpuscular 27.3 L 31.8 L Hemoglobin Concen t Red Cell 19.9 #H 16.0 H Distribution Width Platelet Count 553 #H 312 # Mean Platelet 9.5 9.1 Volume Immature 23.200 H 14.400 H Granulocytes % Neutrophils % Segmented 57 73 Neutrophils % (Manual) Band Neutrophils 13 H 10 H % (Manual) Lymphocytes % Lymphocytes % 18 13 L (Manual) Monocytes % Monocytes % 5 (Manual) Eosinophils % Basophils % 1 (Manual) Metamyelocytes % 1 H 2 H (manual) Myelocytes % 3 H 1 H (Manual) Promyelocytes % 2 H (Manual) Nucleated Red 1.4 H 1 H Blood Cells % Immature 14.100 H 2.080 H Granulocytes # Neutrophils # Neutrophils # 39.5 H 10.7 H (Manual) Band Neutrophils 7.9 H 1.4 H # Lymphocytes 10.9 H 1.8 (Manual) Lymphocytes # Monocytes # Monocytes # 3.0 H (Manual) Eosinophils # Basophils # 0.6 H (Manual) Metamyelocytes # 0.6 H 0.2 H Myelocytes # 1.8 H 0.1 H Promyelocytes # 1.2 H Platelet Estimate INCREASED NORMAL Giant Platelets 2 H Polychromasia 3+ 2+ Poikilocytosis 3+ 2+ Anisocytosis 3+ 2+ Microcytosis 2+ 1+ Macrocytosis 2+ 2+ Sodium Level 142 141 Potassium Level 3.5 2.7 *L Chloride Level 101 100 Carbon Dioxide 6 *L 17 #L Level Anion Gap 35 H 24 #H Blood Urea 89 H 92 H Nitrogen Creatinine 3.55 H 3.12 H Est Glomerular 13 L 15 L Filtrat Rate mL/min Glucose Level 128 # 197 Calcium Level 7.2 L 6.7 L Total Bilirubin 0.0 L 0.0 L Direct Bilirubin 0.00 0.00 Indirect 0.0 0.0 Bilirubin Aspartate Amino 186 H 433 H Transf (AST/SGOT) Alanine 48 130 H Aminotransferase (ALT/SGPT) Alkaline 171 H 168 H Phosphatase Creatine Kinase 297 H 323 H Creatine Kinase 4.2 4.9 Index Creatinine Kinase 12.50 H 15.70 H MB (Mass) Troponin I 0.870 *H 1.820 *H Total Protein 5.4 L 4.8 L Albumin 2.5 L 2.2 L Globulin 2.90 2.60 Albumin/Globulin 0.86 0.84 Ratio Lactic Acid Level 10.5 *H 4.6 *H Eosinophils % 1 (Manual) Basophils % Basophils # Nucleated Red Blood Cells # Dimorphic Red 1+ Blood Cells Thyroid 1.720 Stimulating Hormone (TSH) Prothrombin Time 22.2 #H Prothrombin Time 1.7 Ratio INR International 1.94 Normalized Ratio Activated 31.1 Partial Thrombopl ast Time Test 01/17/19 06:00 Blood Gas Blood arterial Specimen Source Arterial Blood 01/17/2019 6:10:2 Date Drawn 3 AM Arterial Blood pH 7.414 (Temp corrected) Arterial Blood 26.5 L pCO2 (Temp correct) Arterial Blood 183.1 H pO2 (Temp corrected) Arterial Blood 16.6 L HCO3 Arterial Blood -7.1 L Base Excess Arterial Blood 98.6 H Oxygen Saturation Jose Test ACCEPTAB Arterial Blood Right Radial Gas Puncture Site Arterial 0.3 Blood Carboxyhemo globin Arterial Blood 0.3 Methemoglobin Blood Gas A-a O2 71.6 H Differential Oxyhemoglobin 98.0 Percent Blood Gas 37.0 Temperature Blood Gas 20.0 Respiration Rate Blood Gas Actual 24 Respiration Rate Blood Gas VENT - AC Modality FiO2 40.0 Blood Gas Tidal 450.0 Volume Blood Gas 17.0 Inspiratory Pressure Blood Gas MG Notified Whom Blood Gas 01/17/2019 6:17:2 Notified Time 8 AM Medications Medication Current Medications Norepinephrine 250 ml @ 1.875 mls/ hr TITRATE IV ; Start 01/16/19 at 22:00 Sodium Bicarbonate 150 meq/Dextrose 1,000 ml @ 100 mls/hr Q10H IV Last administered on 01/17/19at 00:42; Admin Dose 100 MLS/HR; Start 01/16/19 at 23:30 Vancomycin HCl (Vanco Iv Per Pharmacy) VANCOMYCIN PER PHARMACY PER PROTOCOL XX ; Start 01/16/19 at 23:30 Piperacillin Sod/ Tazobactam Sod 50 ml @ 100 mls/hr Q12 IVPB Last administered on 01/17/19at 00:29; Admin Dose 100 MLS/HR; Start 01/16/19 at 23:30 Albuterol (Ventolin Hfa) 4 puff Q2H RESP THERAPY PRN INH SHORTNESS OF BREATH; Start 01/17/19 at 00:00 Ipratropium Pray (Atrovent Hfa) 4 puff Q2H RESP THERAPY PRN INH SHORTNESS OF BREATH; Start 01/17/19 at 00:00 Acetaminophen (Tylenol Liquid) 650 mg Q6H PRN PO PAIN LEVEL 1-3 OR FEVER; Start 01/17/19 at 00:00 Pantoprazole (Protonix Iv) 40 mg DAILY@06 IV Last administered on 01/17/19at 07:26; Admin Dose 40 MG; Start 01/17/19 at 06:00 Potassium Chloride 50 ml @ 25 mls/hr Q2H IVPB Last administered on 01/17/19at 07:25; Admin Dose 25 MLS/HR; Start 01/17/19 at 07:00; Stop 01/17/19 at 12:59 PATSY LEVY MD Jan 17, 2019 08:12
--- NOTE | 2019-01-17 08:56 | CONS ---
DATE OF ADMISSION: 01/16/2019 DATE OF CONSULTATION: 01/17/2019 TYPE OF CONSULTATION: Nephrology. REASON FOR CONSULTATION: Acute kidney injury. PHYSICIAN REQUESTING CONSULT: Dr. Martins. HISTORY OF PRESENT ILLNESS: This is a 58-year-old female with a past medical history of ambulatory d ysfunction who was found a weak at her sister's home. EMS service was called. The patient was broug ht into the emergency room. Upon arrival, she was hypothermic. The patient was found to be anemic w ith a hemoglobin of 2 with severe lactic acidosis, renal failure. The patient was intubated at the [facility]. In the emergency room, the patient was typed and crossed and transfused PRBC. The patient a lso had a CT scan of abdomen and pelvis, which showed pneumoperitoneum compatible with perforated hol low viscus. The patient also had possible emphysematous cystitis, possible fistula with adjacent col on. The patient was transferred to intensive care unit. General surgery was consulted and stated th e patient is clinically unstable for surgery at this time. The patient was placed on IV fluids and p laced on bicarbonate drip and antibiotic therapy. In terms of patient's renal history, the patient's baseline creatinine is unknown. The patient on ad mission had a creatinine of 4.0, which is improved with IV hydration and volume support. The patient does have urinary output. There have been no reports of any rashes or hemoptysis. PAST MEDICAL HISTORY: Unknown. PAST SURGICAL HISTORY: Unknown. ALLERGIES: Unknown. FAMILY HISTORY: Unknown. SOCIAL HISTORY: Reported history of alcohol use. MEDICATIONS: The patient's medications have been reviewed. REVIEW OF SYSTEMS: Unable to do adequate review of systems. The patient is obtunded. Pertinent pos itives as obtained by reviewing medical records, speaking to hospital staff stated in HPI, otherwise negative. PHYSICAL EXAMINATION: VITAL SIGNS: Blood pressure is 137/74, respirations 29, pulse 113, temperature 99.8. HEENT: Head is normocephalic. NECK: Supple. HEART: Regular rate. LUNGS: Show diminished breath sounds at the base. ABDOMEN: Soft, nontender to palpation without rebound or guarding. EXTREMITIES: Negative for clubbing, cyanosis. No edema. DERMATOLOGIC: No rashes. MUSCULOSKELETAL: No joint effusion. NEUROLOGIC: No change in exam. LABORATORY DATA: Shows sodium 141, potassium 2.7, chloride 100, BUN 92, creatinine 3.12. Lactic aci d 4.6. AST, ALT reviewed. Troponin 1.82. White count 14.4, hemoglobin 5.4, platelet count is 312. INR was reviewed. Urinalysis was reviewed. IMAGING STUDIES: Reviewed. ASSESSMENT AND PLAN: This is a 58-year-old female who presents with: 1. Nonoliguric acute kidney injury with unknown baseline creatinine. Etiology is multifactorial sec ondary to hemodynamics from volume depletion, likely tubular injury due to ischemia, severe anemia an d NSAID use. The patient's urinalysis was reviewed, showed significant pyuria or hematuria. The pos sibility of interstitial nephritis is also a consideration. Recommendation at this point is to yoni nue current medical management. Continue volume expansion. Continue IV fluids, continue bicarbonate drip. Continue blood transfusion. We will continue pressor support as needed to maintain MAP of ab ove 65. Continue IV antibiotics. The patient's creatinine has slowly been improving with volume sup port. No immediate need for renal placement therapy and monitor closely. 2. Hypokalemia. We will replete with potassium chloride. Monitor closely. 3. Metabolic acidosis secondary to lactic acidosis. The patient's ABG has improved on bicarbonate d rip. We will continue to monitor. 4. Lactic acidosis secondary to shock, severe anemia. Lactic acid levels are improving. Continue t o monitor. Continue to treat underlying anemia and shock. 5. Septic shock secondary to pneumoperitoneum and urinary tract infection. Continue broad spectrum antibiotics, continue to trend lactic acid levels. Continue IV fluids and pressor support. 6. Ventilator-dependent respiratory failure. Vent settings and ABG was reviewed. Continue to monit or. 7. Severe anemia, etiology is likely secondary to active bleed from NSAID use, perforated hallow vis cus. The patient is status post blood transfusion. Continue to monitor hemoglobin and hematocrit le vels. 8. Perforated hollow viscus. Etiology is likely from NSAID use, peptic ulcer disease. General surg noel has been consulted. Currently, unstable for surgery. We will continue to monitor. Follow up re commendations. 9. Leukocytosis. Etiology is multifactorial secondary to sepsis, and reactive due to severe anemia. Continue current medical management. WBCs have been trending down. 10. Thrombocytosis. Continue to monitor. Etiology is likely reactive. 11. Transaminitis. Continue to monitor. Etiology may be secondary to hepatitis is also etiology ma y be due to hepatitis versus ischemia. 12. Acute encephalopathy, etiology is toxic metabolic. Thank you, Dr. Martins, for this interesting consult. It will be a pleasure to follow the patient wi th you throughout the hospital course. Dictated By: SHAW OLMSTEAD DO NR/NTS Conf#: [id number] DID#: [id number] CC: BLAISE MARTINS MD;*EndCC*
--- NOTE | 2019-01-17 10:08 | CONS ---
DATE OF ADMISSION: 01/16/2019 DATE OF CONSULTATION: REASON FOR CONSULTATION: Ventilator management. Thank you, Dr. Sevilla, for this consultation. HISTORY OF PRESENT ILLNESS: This is a 58-year-old lady found by family to be confused with significa nt weakness, hypothermia and poor living conditions brought to the emergency room and emergently intu bated given her low GCS and was found to have a hemoglobin of 2 with no evidence of overt bleeding. She has history of poor appetite, possible severe depression and paraplegia and significant decubitus ulcers. She has received a transfusion of packed red blood cells since admission. Continues intuba tion and mechanical ventilation and currently remains tenuous. PAST MEDICAL HISTORY: As above. MEDICATIONS: Per chart. ALLERGIES: UNKNOWN. SOCIAL HISTORY: Nonsmoker with history of significant alcohol intake in the past. SYSTEMS REVIEW: A 12-point review of systems unable to be performed. PHYSICAL EXAMINATION: GENERAL: Chronically ill appearing lady on mechanical ventilation. VITAL SIGNS: Currently afebrile, pulse is 110, blood pressure 130/74, O2 saturation 96%, FIO2 of 30% . NECK: Supple, no JVD or lymphadenopathy. CARDIAC: S1, S2, no added sounds or murmurs. CHEST: Diminished air entry bilaterally. ABDOMEN: Mildly distended. EXTREMITIES: No cyanosis, clubbing, edema. NEUROLOGIC: Unable to assess. IMAGING: Chest x-ray shows bilateral atelectasis. Brain CT shows atrophy. LABORATORY DATA: White count initially 91.3, now 14, hemoglobin 2.3, now 5.4, platelets of 312. BUN 92, creatinine 3.12. Lactic acid initially 10.5, now . Troponin 1.8. INR was 1.9. ABG initi ally pH 6.9, now 7.4. pCO2 of 26, pO2 of 183. IMPRESSION AND PLAN: 1. Severe anemia, questionable ongoing chronic bleeding. 2. Marked metabolic acidosis. 3. Severe sepsis. 4. Encephalopathy, toxic metabolic. 5. History of paraplegia per chart. 6. Renal failure, likely prerenal. 7. Non-ST elevation myocardial infarction, likely secondary to hypoperfusion. The patient will require: 1. Continued vent support. 2. Transfusion of packed red blood cells. 3. Broad-spectrum antibiotics. 4. Gastrointestinal evaluation for colonoscopy, endoscopy. 5. Questionable perforated viscus and surgical recommendations. 6. DVT and GI prophylaxis. Dictated By: HIWOT ODELL MD SV/CRISTY Conf#: [id number] DID#: [id number] CC: ALLISON WOLFF MD; BLAISE SEVILLA MD;*EndCC*
--- NOTE | 2019-01-17 10:13 | PN ---
Date/Time of Note Date/Time of Note DATE: 01/17/19 TIME: 10:09 Assessment/Plan VTE Prophylaxis Risk score (from Nsg)>0 risk: 8 Pharmacological prophylaxis: other Lines/Catheters IV Catheter Type (from Nrsg): Central Line Central line still needed: Yes Urinary Cath still in place: Yes Reason Cath still needed: other (indicate) Assessment/Plan Hospital Course See progress note by Dr Robins. Result Diagram: 01/17/19 0430 01/17/19 0430 Results 24hrs Laboratory Tests Test 01/16/19 21:19 01/16/19 21:28 01/16/19 21:29 01/16/19 21:30 Blood Gas Blood arterial Specimen Source Arterial Blood 01/16/2019 9:17:5 Date Drawn 3 PM Arterial Blood pH 6.902 *L (Temp corrected) Arterial Blood 10.7 L pCO2 (Temp correct) Arterial Blood 200.4 H pO2 (Temp corrected) Arterial Blood 2.1 *L HCO3 Arterial Blood -27.4 L Base Excess Arterial Blood 98.6 H Oxygen Saturation Jose Test N/A Arterial Blood Right Brachial Gas Puncture Site Arterial 1.4 Blood Carboxyhemo globin Arterial Blood 0.6 Methemoglobin Blood Gas A-a O2 501.9 H Differential Oxyhemoglobin 96.6 Percent Blood Gas 37.0 Temperature Blood Gas MASK - NRB Modality FiO2 100.0 Blood Gas Herminia FREY MD Critical Value Read Back Blood Gas AA Notified Whom Blood Gas 01/16/2019 9:27:0 Notified Time 0 PM Phosphorus Level 12.3 H Magnesium Level 2.7 H Prothrombin Time 28.8 H Prothrombin Time 2.3 Ratio INR International 2.71 Normalized Ratio Activated 33.8 Partial Thrombopl ast Time Sodium Level 139 Potassium Level 4.3 Chloride Level 97 Carbon Dioxide < 5 *L Level Anion Gap 37 H Blood Urea 92 H Nitrogen Creatinine 4.01 H Est Glomerular 12 L Filtrat Rate mL/min Glucose Level 179 Lactic Acid Level 23.3 *H Calcium Level 8.0 L Total Bilirubin 0.0 L Direct Bilirubin 0.00 Indirect 0.0 Bilirubin Aspartate Amino 100 H Transf (AST/SGOT) Alanine 34 Aminotransferase (ALT/SGPT) Alkaline 186 H Phosphatase Troponin I 0.405 *H C-Reactive 16.2 H 14.2 H Protein Total Protein 6.0 L Albumin 2.8 L Globulin 3.20 Albumin/Globulin 0.87 Ratio White Blood Count 91.3 H Red Blood Count 0.82 L Hemoglobin 2.3 *L Hematocrit 9.3 L Mean Corpuscular 113.4 H Volume Mean Corpuscular 28.0 L Hemoglobin Mean Corpuscular 24.7 L Hemoglobin Concen t Red Cell 26.4 H Distribution Width Platelet Count 805 H Mean Platelet 9.7 Volume Immature 21.200 H Granulocytes % Neutrophils % Segmented 52 Neutrophils % (Manual) Band Neutrophils 11 H % (Manual) Lymphocytes % Lymphocytes % 27 (Manual) Monocytes % Monocytes % 2 (Manual) Eosinophils % Basophils % Myelocytes % 7 H (Manual) Nucleated Red 4 H Blood Cells % Immature 19.330 H Granulocytes # Neutrophils # Neutrophils # 56.6 H (Manual) Band Neutrophils 10.0 H # Lymphocytes 24.6 H (Manual) Lymphocytes # Monocytes # Monocytes # 1.8 H (Manual) Eosinophils # Basophils # Myelocytes # 6.3 H Nucleated Red Blood Cells # Pathologist Y Review (Hematolog y) Platelet Estimate INCREASED Polychromasia 3+ Poikilocytosis 3+ Anisocytosis 2+ Microcytosis 1+ Macrocytosis 1+ Erythrocyte > 130.0 H Sedimentation Rate Test 01/16/19 21:54 01/16/19 22:51 01/16/19 23:14 01/16/19 23:42 Blood Gas Blood arterial Specimen Source Arterial Blood 01/16/2019 11:16: Date Drawn 59 PM Arterial Blood pH 6.892 *L (Temp corrected) Arterial Blood 26.9 L pCO2 (Temp correct) Arterial Blood 529.7 H pO2 (Temp corrected) Arterial Blood 5.1 *L HCO3 Arterial Blood -24.4 L Base Excess Arterial Blood 99.7 H Oxygen Saturation Jose Test ACCEPTAB Arterial Blood Right Brachial Gas Puncture Site Arterial 0.1 Blood Carboxyhemo globin Arterial Blood 0.6 Methemoglobin Blood Gas A-a O2 156.4 H Differential Oxyhemoglobin 99.0 Percent Blood Gas 37.0 Temperature Blood Gas 20.0 Respiration Rate Blood Gas Actual 20 Respiration Rate Blood Gas VENT - AC Modality FiO2 100.0 Blood Gas Tidal 450.0 Volume Blood Gas SHANTE LOPEZ Critical Value Read Back Blood Gas MALENA CURIEL Notified Whom Blood Gas 01/16/2019 11:29: Notified Time 10 PM Urine Color YELLOW Urine Clarity TURBID A Urine pH 5.0 Urine Specific 1.015 [place] Urine Ketones NEGATIVE Urine Nitrite NEGATIVE Urine Bilirubin NEGATIVE Urine NEGATIVE Urobilinogen Urine Leukocyte 1+ H Esterase Urine Microscopic 63 H RBC Urine Microscopic > 182 H WBC Urine Yeast FEW A (Budding) Urine Hemoglobin 3+ H Urine Glucose NEGATIVE Urine Total 2+ H Protein Lactic Acid Level 17.8 *H Fibrinogen 343.0 Test 01/17/19 00:34 01/17/19 02:02 01/17/19 04:30 01/17/19 05:27 White Blood Count 60.8 #H 14.4 #H Red Blood Count 1.15 #L 1.89 #L Hemoglobin 3.3 #*L 5.4 #*L Hematocrit 12.1 #L 17.0 #L Mean Corpuscular 105.2 H 89.9 Volume Mean Corpuscular 28.7 L 28.6 L Hemoglobin Mean Corpuscular 27.3 L 31.8 L Hemoglobin Concen t Red Cell 19.9 #H 16.0 H Distribution Width Platelet Count 553 #H 312 # Mean Platelet 9.5 9.1 Volume Immature 23.200 H 14.400 H Granulocytes % Neutrophils % Segmented 57 73 Neutrophils % (Manual) Band Neutrophils 13 H 10 H % (Manual) Lymphocytes % Lymphocytes % 18 13 L (Manual) Monocytes % Monocytes % 5 (Manual) Eosinophils % Basophils % 1 (Manual) Metamyelocytes % 1 H 2 H (manual) Myelocytes % 3 H 1 H (Manual) Promyelocytes % 2 H (Manual) Nucleated Red 1.4 H 1 H Blood Cells % Immature 14.100 H 2.080 H Granulocytes # Neutrophils # Neutrophils # 39.5 H 10.7 H (Manual) Band Neutrophils 7.9 H 1.4 H # Lymphocytes 10.9 H 1.8 (Manual) Lymphocytes # Monocytes # Monocytes # 3.0 H (Manual) Eosinophils # Basophils # 0.6 H (Manual) Metamyelocytes # 0.6 H 0.2 H Myelocytes # 1.8 H 0.1 H Promyelocytes # 1.2 H Platelet Estimate INCREASED NORMAL Giant Platelets 2 H Polychromasia 3+ 2+ Poikilocytosis 3+ 2+ Anisocytosis 3+ 2+ Microcytosis 2+ 1+ Macrocytosis 2+ 2+ Sodium Level 142 141 Potassium Level 3.5 2.7 *L Chloride Level 101 100 Carbon Dioxide 6 *L 17 #L Level Anion Gap 35 H 24 #H Blood Urea 89 H 92 H Nitrogen Creatinine 3.55 H 3.12 H Est Glomerular 13 L 15 L Filtrat Rate mL/min Glucose Level 128 # 197 Calcium Level 7.2 L 6.7 L Total Bilirubin 0.0 L 0.0 L Direct Bilirubin 0.00 0.00 Indirect 0.0 0.0 Bilirubin Aspartate Amino 186 H 433 H Transf (AST/SGOT) Alanine 48 130 H Aminotransferase (ALT/SGPT) Alkaline 171 H 168 H Phosphatase Creatine Kinase 297 H 323 H Creatine Kinase 4.2 4.9 Index Creatinine Kinase 12.50 H 15.70 H MB (Mass) Troponin I 0.870 *H 1.820 *H Total Protein 5.4 L 4.8 L Albumin 2.5 L 2.2 L Globulin 2.90 2.60 Albumin/Globulin 0.86 0.84 Ratio Lactic Acid Level 10.5 *H 4.6 *H Eosinophils % 1 (Manual) Basophils % Basophils # Nucleated Red Blood Cells # Dimorphic Red 1+ Blood Cells Thyroid 1.720 Stimulating Hormone (TSH) Prothrombin Time 22.2 #H Prothrombin Time 1.7 Ratio INR International 1.94 Normalized Ratio Activated 31.1 Partial Thrombopl ast Time Test 01/17/19 06:00 Blood Gas Blood arterial Specimen Source Arterial Blood 01/17/2019 6:10:2 Date Drawn 3 AM Arterial Blood pH 7.414 (Temp corrected) Arterial Blood 26.5 L pCO2 (Temp correct) Arterial Blood 183.1 H pO2 (Temp corrected) Arterial Blood 16.6 L HCO3 Arterial Blood -7.1 L Base Excess Arterial Blood 98.6 H Oxygen Saturation Jose Test ACCEPTAB Arterial Blood Right Radial Gas Puncture Site Arterial 0.3 Blood Carboxyhemo globin Arterial Blood 0.3 Methemoglobin Blood Gas A-a O2 71.6 H Differential Oxyhemoglobin 98.0 Percent Blood Gas 37.0 Temperature Blood Gas 20.0 Respiration Rate Blood Gas Actual 24 Respiration Rate Blood Gas VENT - AC Modality FiO2 40.0 Blood Gas Tidal 450.0 Volume Blood Gas 17.0 Inspiratory Pressure Blood Gas MG Notified Whom Blood Gas 01/17/2019 6:17:2 Notified Time 8 AM Exam/Review of Systems Exam Vitals Vital Signs Date Temp Pulse Resp B/P (MAP) Pulse Ox O2 O2 Flow FiO2 Time Delivery Rate 01/17/19 113 08:00 01/17/19 137/74 100 Mechanical 08:00 (95) Ventilator 01/17/19 99.8 29 07:30 01/17/19 30 06:20 Intake and Output 01/16/19 01/16/19 01/17/19 1515:00 23:00 07:00 IntakeIntake Total 50 ml 2334.5 ml OutputOutput Total 650 ml BalanceBalance 50 ml 1684.5 ml Results Results 24hrs Laboratory Tests Test 01/16/19 21:19 01/16/19 21:28 01/16/19 21:29 01/16/19 21:30 Blood Gas Blood arterial Specimen Source Arterial Blood 01/16/2019 9:17:5 Date Drawn 3 PM Arterial Blood pH 6.902 *L (Temp corrected) Arterial Blood 10.7 L pCO2 (Temp correct) Arterial Blood 200.4 H pO2 (Temp corrected) Arterial Blood 2.1 *L HCO3 Arterial Blood -27.4 L Base Excess Arterial Blood 98.6 H Oxygen Saturation Jose Test N/A Arterial Blood Right Brachial Gas Puncture Site Arterial 1.4 Blood Carboxyhemo globin Arterial Blood 0.6 Methemoglobin Blood Gas A-a O2 501.9 H Differential Oxyhemoglobin 96.6 Percent Blood Gas 37.0 Temperature Blood Gas MASK - NRB Modality FiO2 100.0 Blood Gas EKHerminia DELONG MD Critical Value Read Back Blood Gas AA Notified Whom Blood Gas 01/16/2019 9:27:0 Notified Time 0 PM Phosphorus Level 12.3 H Magnesium Level 2.7 H Prothrombin Time 28.8 H Prothrombin Time 2.3 Ratio INR International 2.71 Normalized Ratio Activated 33.8 Partial Thrombopl ast Time Sodium Level 139 Potassium Level 4.3 Chloride Level 97 Carbon Dioxide < 5 *L Level Anion Gap 37 H Blood Urea 92 H Nitrogen Creatinine 4.01 H Est Glomerular 12 L Filtrat Rate mL/min Glucose Level 179 Lactic Acid Level 23.3 *H Calcium Level 8.0 L Total Bilirubin 0.0 L Direct Bilirubin 0.00 Indirect 0.0 Bilirubin Aspartate Amino 100 H Transf (AST/SGOT) Alanine 34 Aminotransferase (ALT/SGPT) Alkaline 186 H Phosphatase Troponin I 0.405 *H C-Reactive 16.2 H 14.2 H Protein Total Protein 6.0 L Albumin 2.8 L Globulin 3.20 Albumin/Globulin 0.87 Ratio White Blood Count 91.3 H Red Blood Count 0.82 L Hemoglobin 2.3 *L Hematocrit 9.3 L Mean Corpuscular 113.4 H Volume Mean Corpuscular 28.0 L Hemoglobin Mean Corpuscular 24.7 L Hemoglobin Concen t Red Cell 26.4 H Distribution Width Platelet Count 805 H Mean Platelet 9.7 Volume Immature 21.200 H Granulocytes % Neutrophils % Segmented 52 Neutrophils % (Manual) Band Neutrophils 11 H % (Manual) Lymphocytes % Lymphocytes % 27 (Manual) Monocytes % Monocytes % 2 (Manual) Eosinophils % Basophils % Myelocytes % 7 H (Manual) Nucleated Red 4 H Blood Cells % Immature 19.330 H Granulocytes # Neutrophils # Neutrophils # 56.6 H (Manual) Band Neutrophils 10.0 H # Lymphocytes 24.6 H (Manual) Lymphocytes # Monocytes # Monocytes # 1.8 H (Manual) Eosinophils # Basophils # Myelocytes # 6.3 H Nucleated Red Blood Cells # Pathologist Y Review (Hematolog y) Platelet Estimate INCREASED Polychromasia 3+ Poikilocytosis 3+ Anisocytosis 2+ Microcytosis 1+ Macrocytosis 1+ Erythrocyte > 130.0 H Sedimentation Rate Test 01/16/19 21:54 01/16/19 22:51 01/16/19 23:14 01/16/19 23:42 Blood Gas Blood arterial Specimen Source Arterial Blood 01/16/2019 11:16: Date Drawn 59 PM Arterial Blood pH 6.892 *L (Temp corrected) Arterial Blood 26.9 L pCO2 (Temp correct) Arterial Blood 529.7 H pO2 (Temp corrected) Arterial Blood 5.1 *L HCO3 Arterial Blood -24.4 L Base Excess Arterial Blood 99.7 H Oxygen Saturation Jose Test ACCEPTAB Arterial Blood Right Brachial Gas Puncture Site Arterial 0.1 Blood Carboxyhemo globin Arterial Blood 0.6 Methemoglobin Blood Gas A-a O2 156.4 H Differential Oxyhemoglobin 99.0 Percent Blood Gas 37.0 Temperature Blood Gas 20.0 Respiration Rate Blood Gas Actual 20 Respiration Rate Blood Gas VENT - AC Modality FiO2 100.0 Blood Gas Tidal 450.0 Volume Blood Gas EKBALJEET LOPEZ Critical Value Read Back Blood Gas MALENA CURIEL Notified Whom Blood Gas 01/16/2019 11:29: Notified Time 10 PM Urine Color YELLOW Urine Clarity TURBID A Urine pH 5.0 Urine Specific 1.015 [place] Urine Ketones NEGATIVE Urine Nitrite NEGATIVE Urine Bilirubin NEGATIVE Urine NEGATIVE Urobilinogen Urine Leukocyte 1+ H Esterase Urine Microscopic 63 H RBC Urine Microscopic > 182 H WBC Urine Yeast FEW A (Budding) Urine Hemoglobin 3+ H Urine Glucose NEGATIVE Urine Total 2+ H Protein Lactic Acid Level 17.8 *H Fibrinogen 343.0 Test 01/17/19 00:34 01/17/19 02:02 01/17/19 04:30 01/17/19 05:27 White Blood Count 60.8 #H 14.4 #H Red Blood Count 1.15 #L 1.89 #L Hemoglobin 3.3 #*L 5.4 #*L Hematocrit 12.1 #L 17.0 #L Mean Corpuscular 105.2 H 89.9 Volume Mean Corpuscular 28.7 L 28.6 L Hemoglobin Mean Corpuscular 27.3 L 31.8 L Hemoglobin Concen t Red Cell 19.9 #H 16.0 H Distribution Width Platelet Count 553 #H 312 # Mean Platelet 9.5 9.1 Volume Immature 23.200 H 14.400 H Granulocytes % Neutrophils % Segmented 57 73 Neutrophils % (Manual) Band Neutrophils 13 H 10 H % (Manual) Lymphocytes % Lymphocytes % 18 13 L (Manual) Monocytes % Monocytes % 5 (Manual) Eosinophils % Basophils % 1 (Manual) Metamyelocytes % 1 H 2 H (manual) Myelocytes % 3 H 1 H (Manual) Promyelocytes % 2 H (Manual) Nucleated Red 1.4 H 1 H Blood Cells % Immature 14.100 H 2.080 H Granulocytes # Neutrophils # Neutrophils # 39.5 H 10.7 H (Manual) Band Neutrophils 7.9 H 1.4 H # Lymphocytes 10.9 H 1.8 (Manual) Lymphocytes # Monocytes # Monocytes # 3.0 H (Manual) Eosinophils # Basophils # 0.6 H (Manual) Metamyelocytes # 0.6 H 0.2 H Myelocytes # 1.8 H 0.1 H Promyelocytes # 1.2 H Platelet Estimate INCREASED NORMAL Giant Platelets 2 H Polychromasia 3+ 2+ Poikilocytosis 3+ 2+ Anisocytosis 3+ 2+ Microcytosis 2+ 1+ Macrocytosis 2+ 2+ Sodium Level 142 141 Potassium Level 3.5 2.7 *L Chloride Level 101 100 Carbon Dioxide 6 *L 17 #L Level Anion Gap 35 H 24 #H Blood Urea 89 H 92 H Nitrogen Creatinine 3.55 H 3.12 H Est Glomerular 13 L 15 L Filtrat Rate mL/min Glucose Level 128 # 197 Calcium Level 7.2 L 6.7 L Total Bilirubin 0.0 L 0.0 L Direct Bilirubin 0.00 0.00 Indirect 0.0 0.0 Bilirubin Aspartate Amino 186 H 433 H Transf (AST/SGOT) Alanine 48 130 H Aminotransferase (ALT/SGPT) Alkaline 171 H 168 H Phosphatase Creatine Kinase 297 H 323 H Creatine Kinase 4.2 4.9 Index Creatinine Kinase 12.50 H 15.70 H MB (Mass) Troponin I 0.870 *H 1.820 *H Total Protein 5.4 L 4.8 L Albumin 2.5 L 2.2 L Globulin 2.90 2.60 Albumin/Globulin 0.86 0.84 Ratio Lactic Acid Level 10.5 *H 4.6 *H Eosinophils % 1 (Manual) Basophils % Basophils # Nucleated Red Blood Cells # Dimorphic Red 1+ Blood Cells Thyroid 1.720 Stimulating Hormone (TSH) Prothrombin Time 22.2 #H Prothrombin Time 1.7 Ratio INR International 1.94 Normalized Ratio Activated 31.1 Partial Thrombopl ast Time Test 01/17/19 06:00 Blood Gas Blood arterial Specimen Source Arterial Blood 01/17/2019 6:10:2 Date Drawn 3 AM Arterial Blood pH 7.414 (Temp corrected) Arterial Blood 26.5 L pCO2 (Temp correct) Arterial Blood 183.1 H pO2 (Temp corrected) Arterial Blood 16.6 L HCO3 Arterial Blood -7.1 L Base Excess Arterial Blood 98.6 H Oxygen Saturation Jose Test ACCEPTAB Arterial Blood Right Radial Gas Puncture Site Arterial 0.3 Blood Carboxyhemo globin Arterial Blood 0.3 Methemoglobin Blood Gas A-a O2 71.6 H Differential Oxyhemoglobin 98.0 Percent Blood Gas 37.0 Temperature Blood Gas 20.0 Respiration Rate Blood Gas Actual 24 Respiration Rate Blood Gas VENT - AC Modality FiO2 40.0 Blood Gas Tidal 450.0 Volume Blood Gas 17.0 Inspiratory Pressure Blood Gas MG Notified Whom Blood Gas 01/17/2019 6:17:2 Notified Time 8 AM Medications Medication Current Medications Norepinephrine 250 ml @ 1.875 mls/ hr TITRATE IV ; Start 01/16/19 at 22:00 Sodium Bicarbonate 150 meq/Dextrose 1,000 ml @ 100 mls/hr Q10H IV Last administered on 01/17/19at 00:42; Admin Dose 100 MLS/HR; Start 01/16/19 at 23:30 Vancomycin HCl (Vanco Iv Per Pharmacy) VANCOMYCIN PER PHARMACY PER PROTOCOL XX ; Start 01/16/19 at 23:30 Albuterol (Ventolin Hfa) 4 puff Q2H RESP THERAPY PRN INH SHORTNESS OF BREATH; Start 01/17/19 at 00:00 Ipratropium [place] (Atrovent Hfa) 4 puff Q2H RESP THERAPY PRN INH SHORTNESS OF BREATH; Start 01/17/19 at 00:00 Acetaminophen (Tylenol Liquid) 650 mg Q6H PRN PO PAIN LEVEL 1-3 OR FEVER; Start 01/17/19 at 00:00 Pantoprazole (Protonix Iv) 40 mg DAILY@06 IV Last administered on 01/17/19at 07:26; Admin Dose 40 MG; Start 01/17/19 at 06:00 Potassium Chloride 50 ml @ 25 mls/hr Q2H IVPB Last administered on 01/17/19at 07:25; Admin Dose 25 MLS/HR; Start 01/17/19 at 07:00; Stop 01/17/19 at 12:59 Piperacillin Sod/ Tazobactam Sod 50 ml @ 100 mls/hr Q8 IVPB ; Start 01/17/19 at 14:00 Propofol 100 ml @ 1.698 mls/ hr Q12H IV ; Start 01/17/19 at 10:30 NINA HOLT Jan 17, 2019 10:13
[2019-01-17] MEDS ORDERED: POTASSIUM CHLORIDE 100 ML IVPB SCH (10:30)
[2019-01-17] MEDS: PROPOFOL 100 ML IV SCH ×3 (10:30→21:54)
[2019-01-17] MEDS ORDERED: DEXTROSE 50% 50 ML SYRINGE IV PRN ×2 (11:00)
[2019-01-17] MEDS ORDERED: GLUCOSE GEL 15 GRAM TUBE BUCCAL PRN (11:00)
[2019-01-17] MEDS ORDERED: GLUCOSE GEL 15 GRAM TUBE PO PRN ×2 (11:00)
[2019-01-17] MEDS ORDERED: GLUCAGON 1 MG INJ IM PRN (11:00)
--- NOTE | 2019-01-17 11:27 | CONS ---
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 Continue to monitor labs and transfuse as needed Stool OB pending Follow up on surgical recommendations ABX per ID Patient seen in collaboration with Dr. Cosme CC: MABLE COSME ; Consultation Date/Type/Reason Admit Date/Time Date of Consultation: Jan 17, 2019 Type of Consult GI Reason for Consultation Severe anemia Date/Time of Note DATE: 01/17/19 TIME: 11:13 Hx of Present Illness This a 58-year-old female who is currently intubated and sedated therefore HPI is limited and information obtained from medical records. Patient was sami arently brought in by EMS for increased confusion and weakness. She apparently lives with her sister and family, she has been refusing to see a doctor for some time. With initial workup. Patient found to have profound leukocytosis with WBC of 91.3 today is decreased to 14.4 additionally she had profound microcytic anemia with a hemoglobin of 2.3 she is status post 4 units of packed RBCs today is 5.4. Her thrombocytosis has resolved she is noted to have coagulopathy additionally imaging pneumoperitoneum compatible with perforated hollow viscus etiology of which is unclear severe constipation pattern is present. Also abnormal urinary bladder with a Valadez catheter and gas both within the bladder and the bladder wall unable to emphysematous cystitis and possible a fistula within the adjacent colon. Common bile duct is dilated measuring 7 mm without evidence of calcified choledocholithiasis at time evaluation patient is in ICU intubated 100% FiO2 sedated. Spoke with nurse he denies overt signs of GI bleed. At this time patient is too critical to proceed with endoscopic evaluation. We will continue to monitor, Subjective hx not possible: pt critical Past Medical History Medications Current Medications Norepinephrine 250 ml @ 1.875 mls/ hr TITRATE IV ; Start 01/16/19 at 22:00 Vancomycin HCl (Vanco Iv Per Pharmacy) VANCOMYCIN PER PHARMACY PER PROTOCOL XX ; Start 01/16/19 at 23:30 Albuterol (Ventolin Hfa) 4 puff Q2H RESP THERAPY PRN INH SHORTNESS OF BREATH; Start 01/17/19 at 00:00 Ipratropium [place] (Atrovent Hfa) 4 puff Q2H RESP THERAPY PRN INH SHORTNESS OF BREATH; Start 01/17/19 at 00:00 Acetaminophen (Tylenol Liquid) 650 mg Q6H PRN PO PAIN LEVEL 1-3 OR FEVER; Start 01/17/19 at 00:00 Pantoprazole (Protonix Iv) 40 mg DAILY@06 IV Last administered on 01/17/19at 07:26; Admin Dose 40 MG; Start 01/17/19 at 06:00 Potassium Chloride 50 ml @ 25 mls/hr Q2H IVPB Last administered on 01/17/19at 10:09; Admin Dose 25 MLS/HR; Start 01/17/19 at 07:00; Stop 01/17/19 at 12:59 Piperacillin Sod/ Tazobactam Sod 50 ml @ 100 mls/hr Q8 IVPB ; Start 01/17/19 at 14:00 Propofol 100 ml @ 1.698 mls/ hr Q12H IV Last administered on 01/17/19at 10:30; Admin Dose 10.188 MLS/HR; Start 01/17/19 at 10:30 Calcium Gluconate 2 gm/Dextrose 120 ml @ 60 mls/hr ONCE ONCE IVPB ; Start 01/17/19 at 12:00; Stop 01/17/19 at 13:59 Diagnostic Test (Pha) (Accu-Chek) 1 ea 02 XX ; Start 01/18/19 at 02:00 Insulin Aspart (Novolog Insulin Pen) NOVOLOG *MILD* ALGORI... Q4 SC ; Start 01/17/19 at 13:00 Miscellaneous Information 1 ea NOTE XX ; Start 01/17/19 at 11:00 Glucose (Glutose) 15 gm Q15M PRN PO DECREASED GLUCOSE; Start 01/17/19 at 11:00 Glucose (Glutose) 22.5 gm Q15M PRN PO DECREASED GLUCOSE; Start 01/17/19 at 1 1:00 Dextrose (D50w Syringe) 25 ml Q15M PRN IV DECREASED GLUCOSE; Start 01/17/19 at 11:00 Dextrose (D50w Syringe) 50 ml Q15M PRN IV DECREASED GLUCOSE; Start 01/17/19 at 11:00 Glucagon (Glucagen) 1 mg Q15M PRN IM DECREASED GLUCOSE; Start 01/17/19 at 11:00 Glucose (Glutose) 15 gm Q15M PRN BUCCAL DECREASED GLUCOSE; Start 01/17/19 at 11:00 Sodium Chloride 1,000 ml @ 100 mls/hr Q10H IV ; Start 01/17/19 at 11:00 Allergies: Coded Allergies: Unknown: Unable to obtain (Unverified , 01/16/19) Social History Alcohol Use: other (Previous heavy alcohol use as per the sister) Smoking Status: Unknown if ever smoked Drug Use: none Exam/Review of Systems Exam Vitals Vital Signs Date Temp Pulse Resp B/P (MAP) Pulse Ox O2 O2 Flow FiO2 Time Delivery Rate 01/17/19 113 08:00 01/17/19 137/74 100 Mechanical 08:00 (95) Ventilator 01/17/19 99.8 29 07:30 01/17/19 30 06:20 Intake and Output 01/16/19 01/16/19 01/17/19 1515:00 23:00 07:00 IntakeIntake Total 50 ml 2334.5 ml OutputOutput Total 650 ml BalanceBalance 50 ml 1684.5 ml Exam PHYSICAL EXAMINATION: GENERAL: Ill appearing, intubated, sedated SKIN: decubitus wounds EYES: Pupils sluggish EARS/NOSE AND THROAT: Ears normal, nose normal, Intubated NECK: Supple, no masses. CHEST: Inspection within normal limits. CARDIOVASCULAR: Heart: Regular rate and rhythm RESPIRATORY: Coarse GASTROINTESTINAL AND LIVER: Abdomen: Soft, non-distended, no hernias, hypoactive/absent bowel sounds. Rectal: Deferred. : f/c in place, query fecal content EXTREMITIES: No cyanosis, clubbing or edema. Results Result Diagram: 01/17/19 0430 01/17/19 0430 Results 24hrs Laboratory Tests Test 01/16/19 21:19 01/16/19 21:28 01/16/19 21:29 01/16/19 21:30 Blood Gas Blood arterial Specimen Source Arterial Blood 01/16/2019 9:17:5 Date Drawn 3 PM Arterial Blood pH 6.902 *L (Temp corrected) Arterial Blood 10.7 L pCO2 (Temp correct) Arterial Blood 200.4 H pO2 (Temp corrected) Arterial Blood 2.1 *L HCO3 Arterial Blood -27.4 L Base Excess Arterial Blood 98.6 H Oxygen Saturation Jose Test N/A Arterial Blood Right Brachial Gas Puncture Site Arterial 1.4 Blood Carboxyhemo globin Arterial Blood 0.6 Methemoglobin Blood Gas A-a O2 501.9 H Differential Oxyhemoglobin 96.6 Percent Blood Gas 37.0 Temperature Blood Gas MASK - NRB Modality FiO2 100.0 Blood Gas Herminia FREY MD Critical Value Read Back Blood Gas AA Notified Whom Blood Gas 01/16/2019 9:27:0 Notified Time 0 PM Phosphorus Level 12.3 H Magnesium Level 2.7 H Prothrombin Time 28.8 H Prothrombin Time 2.3 Ratio INR International 2.71 Normalized Ratio Activated 33.8 Partial Thrombopl ast Time Sodium Level 139 Potassium Level 4.3 Chloride Level 97 Carbon Dioxide < 5 *L Level Anion Gap 37 H Blood Urea 92 H Nitrogen Creatinine 4.01 H Est Glomerular 12 L Filtrat Rate mL/min Glucose Level 179 Lactic Acid Level 23.3 *H Calcium Level 8.0 L Total Bilirubin 0.0 L Direct Bilirubin 0.00 Indirect 0.0 Bilirubin Aspartate Amino 100 H Transf (AST/SGOT) Alanine 34 Aminotransferase (ALT/SGPT) Alkaline 186 H Phosphatase Troponin I 0.405 *H C-Reactive 16.2 H 14.2 H Protein Total Protein 6.0 L Albumin 2.8 L Globulin 3.20 Albumin/Globulin 0.87 Ratio White Blood Count 91.3 H Red Blood Count 0.82 L Hemoglobin 2.3 *L Hematocrit 9.3 L Mean Corpuscular 113.4 H Volume Mean Corpuscular 28.0 L Hemoglobin Mean Corpuscular 24.7 L Hemoglobin Concen t Red Cell 26.4 H Distribution Width Platelet Count 805 H Mean Platelet 9.7 Volume Immature 21.200 H Granulocytes % Neutrophils % Segmented 52 Neutrophils % (Manual) Band Neutrophils 11 H % (Manual) Lymphocytes % Lymphocytes % 27 (Manual) Monocytes % Monocytes % 2 (Manual) Eosinophils % Basophils % Myelocytes % 7 H (Manual) Nucleated Red 4 H Blood Cells % Immature 19.330 H Granulocytes # Neutrophils # Neutrophils # 56.6 H (Manual) Band Neutrophils 10.0 H # Lymphocytes 24.6 H (Manual) Lymphocytes # Monocytes # Monocytes # 1.8 H (Manual) Eosinophils # Basophils # Myelocytes # 6.3 H Nucleated Red Blood Cells # Pathologist Y Review (Hematolog y) Platelet Estimate INCREASED Polychromasia 3+ Poikilocytosis 3+ Anisocytosis 2+ Microcytosis 1+ Macrocytosis 1+ Erythrocyte > 130.0 H Sedimentation Rate Test 01/16/19 21:54 01/16/19 22:51 01/16/19 23:14 01/16/19 23:42 Blood Gas Blood arterial Specimen Source Arterial Blood 01/16/2019 11:16: Date Drawn 59 PM Arterial Blood pH 6.892 *L (Temp corrected) Arterial Blood 26.9 L pCO2 (Temp correct) Arterial Blood 529.7 H pO2 (Temp corrected) Arterial Blood 5.1 *L HCO3 Arterial Blood -24.4 L Base Excess Arterial Blood 99.7 H Oxygen Saturation Jose Test ACCEPTAB Arterial Blood Right Brachial Gas Puncture Site Arterial 0.1 Blood Carboxyhemo globin Arterial Blood 0.6 Methemoglobin Blood Gas A-a O2 156.4 H Differential Oxyhemoglobin 99.0 Percent Blood Gas 37.0 Temperature Blood Gas 20.0 Respiration Rate Blood Gas Actual 20 Respiration Rate Blood Gas VENT - AC Modality FiO2 100.0 Blood Gas Tidal 450.0 Volume Blood Gas EKBALJEET LOPEZ Critical Value Read Back Blood Gas [facility] Notified Whom Blood Gas 01/16/2019 11:29: Notified Time 10 PM Urine Color YELLOW Urine Clarity TURBID A Urine pH 5.0 Urine Specific 1.015 [place] Urine Ketones NEGATIVE Urine Nitrite NEGATIVE Urine Bilirubin NEGATIVE Urine NEGATIVE Urobilinogen Urine Leukocyte 1+ H Esterase Urine Microscopic 63 H RBC Urine Microscopic > 182 H WBC Urine Yeast FEW A (Budding) Urine Hemoglobin 3+ H Urine Glucose NEGATIVE Urine Total 2+ H Protein Lactic Acid Level 17.8 *H Fibrinogen 343.0 Test 01/17/19 00:34 01/17/19 02:02 01/17/19 04:30 01/17/19 05:27 White Blood Count 60.8 #H 14.4 #H Red Blood Count 1.15 #L 1.89 #L Hemoglobin 3.3 #*L 5.4 #*L Hematocrit 12.1 #L 17.0 #L Mean Corpuscular 105.2 H 89.9 Volume Mean Corpuscular 28.7 L 28.6 L Hemoglobin Mean Corpuscular 27.3 L 31.8 L Hemoglobin Concen t Red Cell 19.9 #H 16.0 H Distribution Width Platelet Count 553 #H 312 # Mean Platelet 9.5 9.1 Volume Immature 23.200 H 14.400 H Granulocytes % Neutrophils % Segmented 57 73 Neutrophils % (Manual) Band Neutrophils 13 H 10 H % (Manual) Lymphocytes % Lymphocytes % 18 13 L (Manual) Monocytes % Monocytes % 5 (Manual) Eosinophils % Basophils % 1 (Manual) Metamyelocytes % 1 H 2 H (manual) Myelocytes % 3 H 1 H (Manual) Promyelocytes % 2 H (Manual) Nucleated Red 1.4 H 1 H Blood Cells % Immature 14.100 H 2.080 H Granulocytes # Neutrophils # Neutrophils # 39.5 H 10.7 H (Manual) Band Neutrophils 7.9 H 1.4 H # Lymphocytes 10.9 H 1.8 (Manual) Lymphocytes # Monocytes # Monocytes # 3.0 H (Manual) Eosinophils # Basophils # 0.6 H (Manual) Metamyelocytes # 0.6 H 0.2 H Myelocytes # 1.8 H 0.1 H Promyelocytes # 1.2 H Platelet Estimate INCREASED NORMAL Giant Platelets 2 H Polychromasia 3+ 2+ Poikilocytosis 3+ 2+ Anisocytosis 3+ 2+ Microcytosis 2+ 1+ Macrocytosis 2+ 2+ Sodium Level 142 141 Potassium Level 3.5 2.7 *L Chloride Level 101 100 Carbon Dioxide 6 *L 17 #L Level Anion Gap 35 H 24 #H Blood Urea 89 H 92 H Nitrogen Creatinine 3.55 H 3.12 H Est Glomerular 13 L 15 L Filtrat Rate mL/min Glucose Level 128 # 197 Calcium Level 7.2 L 6.7 L Total Bilirubin 0.0 L 0.0 L Direct Bilirubin 0.00 0.00 Indirect 0.0 0.0 Bilirubin Aspartate Amino 186 H 433 H Transf (AST/SGOT) Alanine 48 130 H Aminotransferase (ALT/SGPT) Alkaline 171 H 168 H Phosphatase Creatine Kinase 297 H 323 H Creatine Kinase 4.2 4.9 Index Creatinine Kinase 12.50 H 15.70 H MB (Mass) Troponin I 0.870 *H 1.820 *H Total Protein 5.4 L 4.8 L Albumin 2.5 L 2.2 L Globulin 2.90 2.60 Albumin/Globulin 0.86 0.84 Ratio Lactic Acid Level 10.5 *H 4.6 *H Eosinophils % 1 (Manual) Basophils % Basophils # Nucleated Red Blood Cells # Dimorphic Red 1+ Blood Cells Hemoglobin A1c Thyroid 1.720 Stimulating Hormone (TSH) Prothrombin Time 22.2 #H Prothrombin Time 1.7 Ratio INR International 1.94 Normalized Ratio Activated 31.1 Partial Thrombopl ast Time Test 01/17/19 06:00 Blood Gas Blood arterial Specimen Source Arterial Blood 01/17/2019 6:10:2 Date Drawn 3 AM Arterial Blood pH 7.414 (Temp corrected) Arterial Blood 26.5 L pCO2 (Temp correct) Arterial Blood 183.1 H pO2 (Temp corrected) Arterial Blood 16.6 L HCO3 Arterial Blood -7.1 L Base Excess Arterial Blood 98.6 H Oxygen Saturation Jose Test ACCEPTAB Arterial Blood Right Radial Gas Puncture Site Arterial 0.3 Blood Carboxyhemo globin Arterial Blood 0.3 Methemoglobin Blood Gas A-a O2 71.6 H Differential Oxyhemoglobin 98.0 Percent Blood Gas 37.0 Temperature Blood Gas 20.0 Respiration Rate Blood Gas Actual 24 Respiration Rate Blood Gas VENT - AC Modality FiO2 40.0 Blood Gas Tidal 450.0 Volume Blood Gas 17.0 Inspiratory Pressure Blood Gas MG Notified Whom Blood Gas 01/17/2019 6:17:2 Notified Time 8 AM Medications Medication Current Medications Norepinephrine 250 ml @ 1.875 mls/ hr TITRATE IV ; Start 01/16/19 at 22:00 Vancomycin HCl (Vanco Iv Per Pharmacy) VANCOMYCIN PER PHARMACY PER PROTOCOL XX ; Start 01/16/19 at 23:30 Albuterol (Ventolin Hfa) 4 puff Q2H RESP THERAPY PRN INH SHORTNESS OF BREATH; Start 01/17/19 at 00:00 Ipratropium [place] (Atrovent Hfa) 4 puff Q2H RESP THERAPY PRN INH SHORTNESS OF BREATH; Start 01/17/19 at 00:00 Acetaminophen (Tylenol Liquid) 650 mg Q6H PRN PO PAIN LEVEL 1-3 OR FEVER; Start 01/17/19 at 00:00 Pantoprazole (Protonix Iv) 40 mg DAILY@06 IV Last administered on 01/17/19at 07:26; Admin Dose 40 MG; Start 01/17/19 at 06:00 Potassium Chloride 50 ml @ 25 mls/hr Q2H IVPB Last administered on 01/17/19at 10:09; Admin Dose 25 MLS/HR; Start 01/17/19 at 07:00; Stop 01/17/19 at 12:59 Piperacillin Sod/ Tazobactam Sod 50 ml @ 100 mls/hr Q8 IVPB ; Start 01/17/19 at 14:00 Propofol 100 ml @ 1.698 mls/ hr Q12H IV Last administered on 01/17/19at 10:30; Admin Dose 10.188 MLS/HR; Start 01/17/19 at 10:30 Calcium Gluconate 2 gm/Dextrose 120 ml @ 60 mls/hr ONCE ONCE IVPB ; Start 01/17/19 at 12:00; Stop 01/17/19 at 13:59 Diagnostic Test (Pha) (Accu-Chek) 1 ea 02 XX ; Start 01/18/19 at 02:00 Insulin Aspart (Novolog Insulin Pen) NOVOLOG *MILD* ALGORI... Q4 SC ; Start 01/17/19 at 13:00 Miscellaneous Information 1 ea NOTE XX ; Start 01/17/19 at 11:00 Glucose (Glutose) 15 gm Q15M PRN PO DECREASED GLUCOSE; Start 01/17/19 at 11:00 Glucose (Glutose) 22.5 gm Q15M PRN PO DECREASED GLUCOSE; Start 01/17/19 at 11:00 Dextrose (D50w Syringe) 25 ml Q15M PRN IV DECREASED GLUCOSE; Start 01/17/19 at 11:00 Dextrose (D50w Syringe) 50 ml Q15M PRN IV DECREASED GLUCOSE; Start 01/17/19 at 11:00 Glucagon (Glucagen) 1 mg Q15M PRN IM DECREASED GLUCOSE; Start 01/17/19 at 11:00 Glucose (Glutose) 15 gm Q15M PRN BUCCAL DECREASED GLUCOSE; Start 01/17/19 at 11:00 Sodium Chloride 1,000 ml @ 100 mls/hr Q10H IV ; Start 01/17/19 at 11:00 DAGO STEARNS Jan 17, 2019 11:23
[2019-01-17] MEDS ORDERED: CALCIUM GLUCONATE 10% 2 GM in DEXTROSE 5% 100 ML IVPB ONE (12:00)
[2019-01-17] MEDS: SOD CHLORIDE 0.9% 1,000 ML IV SCH ×2 (12:24→22:03)
[2019-01-17] MEDS: INSULIN ASPART [NOVOLOG] 3 ML PEN SC SCH ×3 (12:34→21:00)
--- NOTE | 2019-01-17 13:24 | RADRPT ---
Echocardiogram Report Patient Name: NANNETTE RÍOSPatient ID: [id number] : 1960 (59y )Study Date: 01/17/2019 8:22:17 AM Gender: FAccession #: [id number] Tech: Patience Luke RDCS Location: [facility] Ref.Physician: BLAISE MARTINS Height(Cm): BSA: Weight(Kg): Quality: AdequateAccount #: Procedures: Echocardiographic Report: Transthoracic echocardiogram with complete 2D, M-Mode, and doppler examination. Indications: Septic Shock. Measurements: 2D/M Mode Doppler Measurement Value Normal Range Measurement Value Normal Range LVIDd 2D 3.7 [ 3.8 - 5.2 ] cm AV Mean Cy 1.5 [ 70.0 - 90.0 ] cm/sec LVIDs 2D 2.8 [ 2.2 - 3.5 ] cm AV Mean PG 10.0 [ 2.0 - 4.0 ] mmHg LVPWd 2D 1.0 [ 0.6 - 0.9 ] cm AV VTI 39.2 cm IVSd 2D 1.1 [ 0.6 - 0.9 ] cm LVOT Mean Cy 0.9 [ 60.0 - 80.0 ] cm/sec AoR Diam 2D 2.2 [ 2.3 - 3.1 ] cm LVOT Mean PG 4.0 [ 1.0 - 3.0 ] mmHg EDV 2D 57.0 [ 46.0 - 106.0 ] ml LVOT Peak Cy 1.3 [ 70.0 - 110.0 ] cm/sec ESV 2D 29.6 [ 14.0 - 42.0 ] ml LVOT Peak PG 7.0 [ 2.0 - 6.0 ] mmHg EF 2D 48.1 [ 54.0 - 74.0 ] percent LVOT VTI 24.5 [ 20.0 - 30.0 ] cm LA Dimen 2D 3.8 [ 2.7 - 3.8 ] cm MV E Peak Cy 1.0 [ 60.0 - 130.0 ] cm/sec MV A Peak Cy 1.3 [ 100.0 - 120.0 ] cm/sec MV E/A 0.8 [ 0.8 - 1.5 ] ratio MV Decel Time 158 [ 104 - 258 ] msec Lat E` Cy 0.1 [ 10.0 - 15.0 ] cm/sec Lateral E/E` 12.6 [ 1.0 - 2.0 ] ratio MV E/A 0.8 [ 0.8 - 1.5 ] ratio TR Peak Cy 4.1 [ 100.0 - 280.0 ] cm/sec TR Peak PG 69.0 mmHg RVSP 79.0 [ 10.0 - 36.0 ] mmHg RA Pressure 10.0 mmHg Findings: Left Ventricle: Lower limits of normal systolic function. Normal left ventricular cavity size. Mild concentric left ventricular hypertrophy. Ejection fraction is visually estimated at 45 %. Tissue Doppler/Mitral Doppler indices are consistent with impaired relaxation (Stage I diastolic dysfunction). These segments of the LV are hypokinetic apical anterior segment and apical septum. Right Ventricle: Normal right ventricular size. Normal right ventricular systolic function. Left Atrium: The left atrium is normal in size. Right Atrium: The right atrium is normal in size. Mitral Valve: Mitral valve leaflets appear mildly thickened. Mild mitral annular calcification. Trace mitral regurgitation. Aortic Valve: Aortic valve Max velocity 2.28 m/sec. Max PG 21.00 mmHg. Mean PG 10.00 mmHg. Aortic sclerosis without significant stenosis. Trace aortic valve regurgitation. Tricuspid Valve: Normal appearance of the tricuspid valve. Estimated peak PA systolic pressure 79 mmHg. There is moderate tricuspid regurgitation. Pulmonic Valve: Normal pulmonic valve appearance. Pericardium: Normal pericardium with no significant pericardial effusion. Aorta: Normal aortic root. IVC: Normal IVC with respiratory collapse, however patient on ventilator. Conclusions: Lower limits of normal systolic function. Normal left ventricular cavity size. Mild concentric left ventricular hypertrophy. Ejection fraction is visually estimated at 45 %. Tissue Doppler/Mitral Doppler indices are consistent with impaired relaxation (Stage I diastolic dysfunction). These segments of the LV are hypokinetic apical anterior segment and apical septum. Mitral valve leaflets appear mildly thickened. Mild mitral annular calcification. Trace mitral regurgitation. Aortic valve Max velocity 2.28 m/sec. Max PG 21.00 mmHg. Mean PG 10.00 mmHg. Aortic sclerosis without significant stenosis. Trace aortic valve regurgitation. Normal appearance of the tricuspid valve. Estimated peak PA systolic pressure 79 mmHg. There is moderate tricuspid regurgitation. Electronically Signed By: Dwight French 2019-01-17 13:23:51 PDT
[2019-01-17] MEDS: PIPER-TAZO 2.25 GM (PMX) 50 ML IVPB SCH ×2 (14:17→21:59)
--- NOTE | 2019-01-17 14:19 | CONS ---
Assessment/Plan Assessment/Plan Hospital Course (Demo Recall) 1. Non-ST elevation myocardial infarction: At this point is unclear type I or type II 2. Shock multifactorial mostly septic 3. Severe sepsis 4. Severe anemia status post transfusions 5. Perforated viscus 6. Lactic acidosis 7. Renal failure probably acute 8. Cardiomyopathy 9. Incomplete data 10. Hypoxic respiratory failure status post intubation underwent Recommendations: Follow with multiple bridal stylist sales consultant recommendations. Continue with supportive care. Beta-calvin if blood pressure allows however her blood pressure has been borderline Unable to give aspirin given her severe anemia with hemoglobin arrival was 2 Continue with vent support respiratory care Continue with ICU care. More than 42 minutes of critical care time was for management treatment is critically ill patient excluding any procedures Thank you for his referral. We will continue to follow along with you. EMILY LARA MD [facility] Consultation Date/Type/Reason Admit Date/Time Date of Consultation: Jan 17, 2019 Type of Consult Cardiology Reason for Consultation abnormal trop Requesting Provider: BLAISE MARTINS Date/Time of Note DATE: 01/17/19 TIME: 14:09 Hx of Present Illness Interventional cardiology consultation note Chief complaint: Weakness Reason for consult: Abnormal troponin History of present illness: Thank you for this referral. History was obtained from discussion with the staff and physician review of the chart This is a 58-year-old female with unknown past medical history who was found a weak at her sister's home. EMS service was called. The patient was brought into the emergency room. Upon arrival, she was hypothermic. The patient was found to be anemic with a hemoglobin of 2 with severe lactic acidosis, renal failure and severe leukocytosis. Cardiac enzymes were done troponin has been rising slowly patient has received multiple transfusions intubated on the vent.. The patient was intubated at the bedside. The patient also had a CT scan of abdomen and pelvis, which showed pneumoperitoneum compatible with perforated hollow viscus. 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 Per RN pieces has been noted in the Valadez catheter as well the patient was transferred to intensive care unit. General surgery was consulted family is deciding whether to go towards hospice care or not PAST MEDICAL HISTORY: Unknown. She has not seen a doctor for the time PAST SURGICAL HISTORY: Unknown. ALLERGIES: Unknown. FAMILY HISTORY: Unable to obtain at this SOCIAL HISTORY: Reported history of alcohol use. Review of system: Unable to obtain except for above-mentioned Past Medical History Medications Current Medications Norepinephrine 250 ml @ 1.875 mls/ hr TITRATE IV ; Start 01/16/19 at 22:00 Vancomycin HCl (Vanco Iv Per Pharmacy) VANCOMYCIN PER PHARMACY PER PROTOCOL XX ; Start 01/16/19 at 23:30 Albuterol (Ventolin Hfa) 4 puff Q2H RESP THERAPY PRN INH SHORTNESS OF BREATH; Start 01/17/19 at 00:00 Ipratropium Nahma (Atrovent Hfa) 4 puff Q2H RESP THERAPY PRN INH SHORTNESS OF BREATH; Start 01/17/19 at 00:00 Acetaminophen (Tylenol Liquid) 650 mg Q6H PRN PO PAIN LEVEL 1-3 OR FEVER; Start 01/17/19 at 00:00 Piperacillin Sod/ Tazobactam Sod 50 ml @ 100 mls/hr Q8 IVPB ; Start 01/17/19 at 14:00 Propofol 100 ml @ 1.698 mls/ hr Q12H IV Last administered on 01/17/19at 10:30; Admin Dose 10.188 MLS/HR; Start 01/17/19 at 10:30 Diagnostic Test (Pha) (Accu-Chek) 1 ea 02 XX ; Start 01/18/19 at 02:00 Insulin Aspart (Novolog Insulin Pen) NOVOLOG *MILD* ALGORI... Q4 SC Last administered on 01/17/19at 12:34; Admin Dose 1 UNIT; Start 01/17/19 at 13:00 Miscellaneous Information 1 ea NOTE XX ; Start 01/17/19 at 11:00 Glucose (Glutose) 15 gm Q15M PRN PO DECREASED GLUCOSE; Start 01/17/19 at 11:00 Glucose (Glutose) 22.5 gm Q15M PRN PO DECREASED GLUCOSE; Start 01/17/19 at 11:00 Dextrose (D50w Syringe) 25 ml Q15M PRN IV DECREASED GLUCOSE; Start 01/17/19 at 11:00 Dextrose (D50w Syringe) 50 ml Q15M PRN IV DECREASED GLUCOSE; Start 01/17/19 at 11:00 Glucagon (Glucagen) 1 mg Q15M PRN IM DECREASED GLUCOSE; Start 01/17/19 at 11:00 Glucose (Glutose) 15 gm Q15M PRN BUCCAL DECREASED GLUCOSE; Start 01/17/19 at 11:00 Sodium Chloride 1,000 ml @ 100 mls/hr Q10H IV Last administered on 01/17/19at 12:24; Admin Dose 100 MLS/HR; Start 01/17/19 at 11:00 Famotidine (Pepcid Iv) 20 mg DAILY IV ; Start 01/18/19 at 09:00 Miscellaneous Information (*Rx Drug Level Order Reminder*) RANDOM VANCOMYCIN LEVEL 3... ONCE ONCE XX ; Start 01/18/19 at 05:00; Stop 01/18/19 at 05:01 Allergies: Coded Allergies: Unknown: Unable to obtain (Unverified , 01/16/19) Social History Alcohol Use: other (Previous heavy alcohol use as per the sister) Smoking Status: Unknown if ever smoked Drug Use: none Exam/Review of Systems Vital Signs Vitals Vital Signs Date Temp Pulse Resp B/P (MAP) Pulse Ox O2 O2 Flow FiO2 Time Delivery Rate 01/17/19 96 12:00 01/17/19 113/64 100 Mechanical 11:00 (80) Ventilator 01/17/19 99.8 07:30 01/17/19 30 06:20 Intake and Output 01/16/19 01/16/19 01/17/19 1515:00 23:00 07:00 IntakeIntake Total 50 ml 2334.5 ml OutputOutput Total 650 ml BalanceBalance 50 ml 1684.5 ml Exam Exam General: Intubated on the vent HEENT: NC/AT. Eyes are closed NECK: no stridor. CV: RRR. systolic murmur; no gallop or rubs. PULM: no wheezing + rhonchi. GI: Distended.+ Tender to palpation Extremity: trace B/L LE edema. no clubbing. neuro: Sedated Psych: calm rectal: deferred : status post Avladez catheter in place . EKG done last night was personally reviewed within normal sinus rhythm poor R wave progression consistent with possible anterior infarct. ST-T wave abnormal ity suggestive of inferolateral ischemia Echocardiogram done January 17 which was personally reviewed shows: Lower limits of normal systolic function. Normal left ventricular cavity size. Mild concentric left ventricular hypertrophy. Ejection fraction is visually estimated at 45 %. Tissue Doppler/Mitral Doppler indices are consistent with impaired relaxation (Stage I diastolic dysfunction). These segments of the LV are hypokinetic apical anterior segment and apical septum. Mitral valve leaflets appear mildly thickened. Mild mitral annular calcification. Trace mitral regurgitation. Aortic valve Max velocity 2.28 m/sec. Max PG 21.00 mmHg. Mean PG 10.00 mmHg. Aortic sclerosis without significant stenosis. Trace aortic valve regurgitation. Normal appearance of the tricuspid valve. Estimated peak PA systolic pressure 79 mmHg. There is moderate tricuspid regurgitation. Labs Result Diagram: 01/17/19 1047 01/17/19 1047 Results 24hrs Laboratory Tests Test 01/16/19 21:19 01/16/19 21:28 01/16/19 21:29 01/16/19 21:30 Blood Gas Blood arterial Specimen Source Arterial Blood 01/16/2019 9:17:5 Date Drawn 3 PM Arterial Blood pH 6.902 *L (Temp corrected) Arterial Blood 10.7 L pCO2 (Temp correct) Arterial Blood 200.4 H pO2 (Temp corrected) Arterial Blood 2.1 *L HCO3 Arterial Blood -27.4 L Base Excess Arterial Blood 98.6 H Oxygen Saturation Jose Test N/A Arterial Blood Right Brachial Gas Puncture Site Arterial 1.4 Blood Carboxyhemo globin Arterial Blood 0.6 Methemoglobin Blood Gas A-a O2 501.9 H Differential Oxyhemoglobin 96.6 Percent Blood Gas 37.0 Temperature Blood Gas MASK - NRB Modality FiO2 100.0 Blood Gas EKHerminia DELONG MD Critical Value Read Back Blood Gas AA Notified Whom Blood Gas 01/16/2019 9:27:0 Notified Time 0 PM Phosphorus Level 12.3 H Magnesium Level 2.7 H Prothrombin Time 28.8 H Prothrombin Time 2.3 Ratio INR International 2.71 Normalized Ratio Activated 33.8 Partial Thrombopl ast Time Sodium Level 139 Potassium Level 4.3 Chloride Level 97 Carbon Dioxide < 5 *L Level Anion Gap 37 H Blood Urea 92 H Nitrogen Creatinine 4.01 H Est Glomerular 12 L Filtrat Rate mL/min Glucose Level 179 Lactic Acid Level 23.3 *H Calcium Level 8.0 L Total Bilirubin 0.0 L Direct Bilirubin 0.00 Indirect 0.0 Bilirubin Aspartate Amino 100 H Transf (AST/SGOT) Alanine 34 Aminotransferase (ALT/SGPT) Alkaline 186 H Phosphatase Troponin I 0.405 *H C-Reactive 16.2 H 14.2 H Protein Total Protein 6.0 L Albumin 2.8 L Globulin 3.20 Albumin/Globulin 0.87 Ratio White Blood Count 91.3 H Red Blood Count 0.82 L Hemoglobin 2.3 *L Hematocrit 9.3 L Mean Corpuscular 113.4 H Volume Mean Corpuscular 28.0 L Hemoglobin Mean Corpuscular 24.7 L Hemoglobin Concen t Red Cell 26.4 H Distribution Width Platelet Count 805 H Mean Platelet 9.7 Volume Immature 21.200 H Granulocytes % Neutrophils % Segmented 52 Neutrophils % (Manual) Band Neutrophils 11 H % (Manual) Lymphocytes % Lymphocytes % 27 (Manual) Monocytes % Monocytes % 2 (Manual) Eosinophils % Basophils % Myelocytes % 7 H (Manual) Nucleated Red 4 H Blood Cells % Immature 19.330 H Granulocytes # Neutrophils # Neutrophils # 56.6 H (Manual) Band Neutrophils 10.0 H # Lymphocytes 24.6 H (Manual) Lymphocytes # Monocytes # Monocytes # 1.8 H (Manual) Eosinophils # Basophils # Myelocytes # 6.3 H Nucleated Red Blood Cells # Pathologist Y Review (Hematolog y) Platelet Estimate INCREASED Polychromasia 3+ Poikilocytosis 3+ Anisocytosis 2+ Microcytosis 1+ Macrocytosis 1+ Erythrocyte > 130.0 H Sedimentation Rate Test 01/16/19 21:54 01/16/19 22:51 01/16/19 23:14 01/16/19 23:42 Blood Gas Blood arterial Specimen Source Arterial Blood 01/16/2019 11:16: Date Drawn 59 PM Arterial Blood pH 6.892 *L (Temp corrected) Arterial Blood 26.9 L pCO2 (Temp correct) Arterial Blood 529.7 H pO2 (Temp corrected) Arterial Blood 5.1 *L HCO3 Arterial Blood -24.4 L Base Excess Arterial Blood 99.7 H Oxygen Saturation Jose Test ACCEPTAB Arterial Blood Right Brachial Gas Puncture Site Arterial 0.1 Blood Carboxyhemo globin Arterial Blood 0.6 Methemoglobin Blood Gas A-a O2 156.4 H Differential Oxyhemoglobin 99.0 Percent Blood Gas 37.0 Temperature Blood Gas 20.0 Respiration Rate Blood Gas Actual 20 Respiration Rate Blood Gas VENT - AC Modality FiO2 100.0 Blood Gas Tidal 450.0 Volume Blood Gas SHANTE LOPEZ Critical Value Read Back Blood Gas MALENA CURIEL Notified Whom Blood Gas 01/16/2019 11:29: Notified Time 10 PM Urine Color YELLOW Urine Clarity TURBID A Urine pH 5.0 Urine Specific 1.015 [place] Urine Ketones NEGATIVE Urine Nitrite NEGATIVE Urine Bilirubin NEGATIVE Urine NEGATIVE Urobilinogen Urine Leukocyte 1+ H Esterase Urine Microscopic 63 H RBC Urine Microscopic > 182 H WBC Urine Yeast FEW A (Budding) Urine Hemoglobin 3+ H Urine Glucose NEGATIVE Urine Total 2+ H Protein Lactic Acid Level 17.8 *H Fibrinogen 343.0 Test 01/17/19 00:34 01/17/19 02:02 01/17/19 04:30 01/17/19 05:27 White Blood Count 60.8 #H 14.4 #H Red Blood Count 1.15 #L 1.89 #L Hemoglobin 3.3 #*L 5.4 #*L Hematocrit 12.1 #L 17.0 #L Mean Corpuscular 105.2 H 89.9 Volume Mean Corpuscular 28.7 L 28.6 L Hemoglobin Mean Corpuscular 27.3 L 31.8 L Hemoglobin Concen t Red Cell 19.9 #H 16.0 H Distribution Width Platelet Count 553 #H 312 # Mean Platelet 9.5 9.1 Volume Immature 23.200 H 14.400 H Granulocytes % Neutrophils % Segmented 57 83 H Neutrophils % (Manual) Band Neutrophils 13 H 7 H % (Manual) Lymphocytes % Lymphocytes % 18 7 L (Manual) Monocytes % Monocytes % 5 (Manual) Eosinophils % Basophils % 1 (Manual) Metamyelocytes % 1 H 2 H (manual) Myelocytes % 3 H 1 H (Manual) Promyelocytes % 2 H 2 H (Manual) Nucleated Red 1.4 H 1 H Blood Cells % Immature 14.100 H 2.080 H Granulocytes # Neutrophils # Neutrophils # 39.5 H 12.1 H (Manual) Band Neutrophils 7.9 H 1.0 H # Lymphocytes 10.9 H 1.0 (Manual) Lymphocytes # Monocytes # Monocytes # 3.0 H (Manual) Eosinophils # Basophils # 0.6 H (Manual) Metamyelocytes # 0.6 H 0.2 H Myelocytes # 1.8 H 0.1 H Promyelocytes # 1.2 H 0.2 H Platelet Estimate INCREASED NORMAL Giant Platelets 2 H Polychromasia 3+ 1+ Poikilocytosis 3+ 1+ Anisocytosis 3+ 1+ Microcytosis 2+ 1+ Macrocytosis 2+ 1+ Sodium Level 142 141 Potassium Level 3.5 2.7 *L Chloride Level 101 100 Carbon Dioxide 6 *L 17 #L Level Anion Gap 35 H 24 #H Blood Urea 89 H 92 H Nitrogen Creatinine 3.55 H 3.12 H Est Glomerular 13 L 15 L Filtrat Rate mL/min Glucose Level 128 # 197 Calcium Level 7.2 L 6.7 L Total Bilirubin 0.0 L 0.0 L Direct Bilirubin 0.00 0.00 Indirect 0.0 0.0 Bilirubin Aspartate Amino 186 H 433 H Transf (AST/SGOT) Alanine 48 130 H Aminotransferase (ALT/SGPT) Alkaline 171 H 168 H Phosphatase Creatine Kinase 297 H 323 H Creatine Kinase 4.2 4.9 Index Creatinine Kinase 12.50 H 15.70 H MB (Mass) Troponin I 0.870 *H 1.820 *H Total Protein 5.4 L 4.8 L Albumin 2.5 L 2.2 L Globulin 2.90 2.60 Albumin/Globulin 0.86 0.84 Ratio Lactic Acid Level 10.5 *H 4.6 *H Eosinophils % 1 (Manual) Basophils % Basophils # Nucleated Red Blood Cells # Dimorphic Red 1+ Blood Cells Hemoglobin A1c Thyroid 1.720 Stimulating Hormone (TSH) Prothrombin Time 22.2 #H Prothrombin Time 1.7 Ratio INR International 1.94 Normalized Ratio Activated 31.1 Partial Thrombopl ast Time Test 01/17/19 06:00 01/17/19 10:47 01/17/19 12:31 Blood Gas Blood arterial Specimen Source Arterial Blood 01/17/2019 6:10:2 Date Drawn 3 AM Arterial Blood pH 7.414 (Temp corrected) Arterial Blood 26.5 L pCO2 (Temp correct) Arterial Blood 183.1 H pO2 (Temp corrected) Arterial Blood 16.6 L HCO3 Arterial Blood -7.1 L Base Excess Arterial Blood 98.6 H Oxygen Saturation Jose Test ACCEPTAB Arterial Blood Right Radial Gas Puncture Site Arterial 0.3 Blood Carboxyhemo globin Arterial Blood 0.3 Methemoglobin Blood Gas A-a O2 71.6 H Differential Oxyhemoglobin 98.0 Percent Blood Gas 37.0 Temperature Blood Gas 20.0 Respiration Rate Blood Gas Actual 24 Respiration Rate Blood Gas VENT - AC Modality FiO2 40.0 Blood Gas Tidal 450.0 Volume Blood Gas 17.0 Inspiratory Pressure Blood Gas MG Notified Whom Blood Gas 01/17/2019 6:17:2 Notified Time 8 AM White Blood Count 14.0 H Red Blood Count 2.85 #L Hemoglobin 8.1 #L Hematocrit 24.7 #L Mean Corpuscular 86.7 Volume Mean Corpuscular 28.4 L Hemoglobin Mean Corpuscular 32.8 Hemoglobin Concen t Red Cell 14.9 H Distribution Width Platelet Count 246 # Mean Platelet 8.8 Volume Immature 7.100 H Granulocytes % Neutrophils % Lymphocytes % Monocytes % Eosinophils % Basophils % Nucleated Red 0.4 H Blood Cells % Immature 0.990 H Granulocytes # Neutrophils # Lymphocytes # Monocytes # Eosinophils # Basophils # Nucleated Red Blood Cells # Sodium Level 142 Potassium Level 2.8 *L Chloride Level 102 Carbon Dioxide 20 L Level Anion Gap 20 H Blood Urea 93 H Nitrogen Creatinine 2.87 H Est Glomerular 17 L Filtrat Rate mL/min Glucose Level 148 # Lactic Acid Level 1.5 Calcium Level 6.6 L Creatine Kinase 303 H Creatine Kinase 4.3 Index Creatinine Kinase 12.90 H MB (Mass) Troponin I 4.280 *H Bedside Glucose 156 Medications Medications Current Medications Norepinephrine 250 ml @ 1.875 mls/ hr TITRATE IV ; Start 01/16/19 at 22:00 Vancomycin HCl (Vanco Iv Per Pharmacy) VANCOMYCIN PER PHARMACY PER PROTOCOL XX ; Start 01/16/19 at 23:30 Albuterol (Ventolin Hfa) 4 puff Q2H RESP THERAPY PRN INH SHORTNESS OF BREATH; Start 01/17/19 at 00:00 Ipratropium Nahma (Atrovent Hfa) 4 puff Q2H RESP THERAPY PRN INH SHORTNESS OF BREATH; Start 01/17/19 at 00:00 Acetaminophen (Tylenol Liquid) 650 mg Q6H PRN PO PAIN LEVEL 1-3 OR FEVER; Start 01/17/19 at 00:00 Piperacillin Sod/ Tazobactam Sod 50 ml @ 100 mls/hr Q8 IVPB ; Start 01/17/19 at 14:00 Propofol 100 ml @ 1.698 mls/ hr Q12H IV Last administered on 01/17/19at 10:30; Admin Dose 10.188 MLS/HR; Start 01/17/19 at 10:30 Diagnostic Test (Pha) (Accu-Chek) 1 ea 02 XX ; Start 01/18/19 at 02:00 Insulin Aspart (Novolog Insulin Pen) NOVOLOG *MILD* ALGORI... Q4 SC Last administered on 01/17/19at 12:34; Admin Dose 1 UNIT; Start 01/17/19 at 13:00 Miscellaneous Information 1 ea NOTE XX ; Start 01/17/19 at 11:00 Glucose (Glutose) 15 gm Q15M PRN PO DECREASED GLUCOSE; Start 01/17/19 at 11:00 Glucose (Glutose) 22.5 gm Q15M PRN PO DECREASED GLUCOSE; Start 01/17/19 at 11:00 Dextrose (D50w Syringe) 25 ml Q15M PRN IV DECREASED GLUCOSE; Start 01/17/19 at 11:00 Dextrose (D50w Syringe) 50 ml Q15M PRN IV DECREASED GLUCOSE; Start 01/17/19 at 11:00 Glucagon (Glucagen) 1 mg Q15M PRN IM DECREASED GLUCOSE; Start 01/17/19 at 11:00 Glucose (Glutose) 15 gm Q15M PRN BUCCAL DECREASED GLUCOSE; Start 01/17/19 at 11:00 Sodium Chloride 1,000 ml @ 100 mls/hr Q10H IV Last administered on 01/17/19at 12:24; Admin Dose 100 MLS/HR; Start 01/17/19 at 11:00 Famotidine (Pepcid Iv) 20 mg DAILY IV ; Start 01/18/19 at 09:00 Miscellaneous Information (*Rx Drug Level Order Reminder*) RANDOM VANCOMYCIN LEVEL 3... ONCE ONCE XX ; Start 01/18/19 at 05:00; Stop 01/18/19 at 05:01 EMILY LARA MD Jan 17, 2019 14:19
--- NOTE | 2019-01-17 14:36 | PN ---
Date/Time of Note Date/Time of Note DATE: 01/17/19 TIME: 14:27 Assessment/Plan VTE Prophylaxis Risk score (from [facility] [place])>0 risk: 8 SCD applied (from [facility] [place]): Yes Pharmacological prophylaxis: NA/contraindicated Pharm contraindication: blood coag disorder Assessment/Plan Hospital Course 1. 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 Acute respiratory failure secondary to above Pulmonology to management 3. Hypokalemia Replete 4. Macrocytic anemia secondary to elevated reticulocyte count Status post 4 units of packed red blood cells 5. Severe leukocytosis-improved 6. Thrombocytosis-resolved Monitor 7. Acute kidney injury secondary to severe septic shock-improving Continue IV fluids 8. Non-STEMI likely type II secondary to severe sepsis Cardiac consultation appreciated 9. Coagulopathy secondary to DIC Prophylaxis: SCDs, Protonix Result Diagram: 01/17/19 1047 01/17/19 1047 Results 24hrs Laboratory Tests Test 01/16/19 21:19 01/16/19 21:28 01/16/19 21:29 01/16/19 21:30 Blood Gas Blood arterial Specimen Source Arterial Blood 01/16/2019 9:17:5 Date Drawn 3 PM Arterial Blood pH 6.902 *L (Temp corrected) Arterial Blood 10.7 L pCO2 (Temp correct) Arterial Blood 200.4 H pO2 (Temp corrected) Arterial Blood 2.1 *L HCO3 Arterial Blood -27.4 L Base Excess Arterial Blood 98.6 H Oxygen Saturation Jose Test N/A Arterial Blood Right Brachial Gas Puncture Site Arterial 1.4 Blood Carboxyhemo globin Arterial Blood 0.6 Methemoglobin Blood Gas A-a O2 501.9 H Differential Oxyhemoglobin 96.6 Percent Blood Gas 37.0 Temperature Blood Gas MASK - NRB Modality FiO2 100.0 Blood Gas Herminia FREY MD Critical Value Read Back Blood Gas AA Notified Whom Blood Gas 01/16/2019 9:27:0 Notified Time 0 PM Phosphorus Level 12.3 H Magnesium Level 2.7 H Prothrombin Time 28.8 H Prothrombin Time 2.3 Ratio INR International 2.71 Normalized Ratio Activated 33.8 Partial Thrombopl ast Time Sodium Level 139 Potassium Level 4.3 Chloride Level 97 Carbon Dioxide < 5 *L Level Anion Gap 37 H Blood Urea 92 H Nitrogen Creatinine 4.01 H Est Glomerular 12 L Filtrat Rate mL/min Glucose Level 179 Lactic Acid Level 23.3 *H Calcium Level 8.0 L Total Bilirubin 0.0 L Direct Bilirubin 0.00 Indirect 0.0 Bilirubin Aspartate Amino 100 H Transf (AST/SGOT) Alanine 34 Aminotransferase (ALT/SGPT) Alkaline 186 H Phosphatase Troponin I 0.405 *H C-Reactive 16.2 H 14.2 H Protein Total Protein 6.0 L Albumin 2.8 L Globulin 3.20 Albumin/Globulin 0.87 Ratio White Blood Count 91.3 H Red Blood Count 0.82 L Hemoglobin 2.3 *L Hematocrit 9.3 L Mean Corpuscular 113.4 H Volume Mean Corpuscular 28.0 L Hemoglobin Mean Corpuscular 24.7 L Hemoglobin Concen t Red Cell 26.4 H Distribution Width Platelet Count 805 H Mean Platelet 9.7 Volume Immature 21.200 H Granulocytes % Neutrophils % Segmented 52 Neutrophils % (Manual) Band Neutrophils 11 H % (Manual) Lymphocytes % Lymphocytes % 27 (Manual) Monocytes % Monocytes % 2 (Manual) Eosinophils % Basophils % Myelocytes % 7 H (Manual) Nucleated Red 4 H Blood Cells % Immature 19.330 H Granulocytes # Neutrophils # Neutrophils # 56.6 H (Manual) Band Neutrophils 10.0 H # Lymphocytes 24.6 H (Manual) Lymphocytes # Monocytes # Monocytes # 1.8 H (Manual) Eosinophils # Basophils # Myelocytes # 6.3 H Nucleated Red Blood Cells # Pathologist Y Review (Hematolog y) Platelet Estimate INCREASED Polychromasia 3+ Poikilocytosis 3+ Anisocytosis 2+ Microcytosis 1+ Macrocytosis 1+ Erythrocyte > 130.0 H Sedimentation Rate Test 01/16/19 21:54 01/16/19 22:51 01/16/19 23:14 01/16/19 23:42 Blood Gas Blood arterial Specimen Source Arterial Blood 01/16/2019 11:16: Date Drawn 59 PM Arterial Blood pH 6.892 *L (Temp corrected) Arterial Blood 26.9 L pCO2 (Temp correct) Arterial Blood 529.7 H pO2 (Temp corrected) Arterial Blood 5.1 *L HCO3 Arterial Blood -24.4 L Base Excess Arterial Blood 99.7 H Oxygen Saturation Jose Test ACCEPTAB Arterial Blood Right Brachial Gas Puncture Site Arterial 0.1 Blood Carboxyhemo globin Arterial Blood 0.6 Methemoglobin Blood Gas A-a O2 156.4 H Differential Oxyhemoglobin 99.0 Percent Blood Gas 37.0 Temperature Blood Gas 20.0 Respiration Rate Blood Gas Actual 20 Respiration Rate Blood Gas VENT - AC Modality FiO2 100.0 Blood Gas Tidal 450.0 Volume Blood Gas SHANTE LOPEZ Critical Value Read Back Blood Gas MALENA [facility] Notified Whom Blood Gas 01/16/2019 11:29: Notified Time 10 PM Urine Color YELLOW Urine Clarity TURBID A Urine pH 5.0 Urine Specific 1.015 [place] Urine Ketones NEGATIVE Urine Nitrite NEGATIVE Urine Bilirubin NEGATIVE Urine NEGATIVE Urobilinogen Urine Leukocyte 1+ H Esterase Urine Microscopic 63 H RBC Urine Microscopic > 182 H WBC Urine Yeast FEW A (Budding) Urine Hemoglobin 3+ H Urine Glucose NEGATIVE Urine Total 2+ H Protein Lactic Acid Level 17.8 *H Fibrinogen 343.0 Test 01/17/19 00:34 01/17/19 02:02 01/17/19 04:30 01/17/19 05:27 White Blood Count 60.8 #H 14.4 #H Red Blood Count 1.15 #L 1.89 #L Hemoglobin 3.3 #*L 5.4 #*L Hematocrit 12.1 #L 17.0 #L Mean Corpuscular 105.2 H 89.9 Volume Mean Corpuscular 28.7 L 28.6 L Hemoglobin Mean Corpuscular 27.3 L 31.8 L Hemoglobin Concen t Red Cell 19.9 #H 16.0 H Distribution Width Platelet Count 553 #H 312 # Mean Platelet 9.5 9.1 Volume Immature 23.200 H 14.400 H Granulocytes % Neutrophils % Segmented 57 83 H Neutrophils % (Manual) Band Neutrophils 13 H 7 H % (Manual) Lymphocytes % Lymphocytes % 18 7 L (Manual) Monocytes % Monocytes % 5 (Manual) Eosinophils % Basophils % 1 (Manual) Metamyelocytes % 1 H 2 H (manual) Myelocytes % 3 H 1 H (Manual) Promyelocytes % 2 H 2 H (Manual) Nucleated Red 1.4 H 1 H Blood Cells % Immature 14.100 H 2.080 H Granulocytes # Neutrophils # Neutrophils # 39.5 H 12.1 H (Manual) Band Neutrophils 7.9 H 1.0 H # Lymphocytes 10.9 H 1.0 (Manual) Lymphocytes # Monocytes # Monocytes # 3.0 H (Manual) Eosinophils # Basophils # 0.6 H (Manual) Metamyelocytes # 0.6 H 0.2 H Myelocytes # 1.8 H 0.1 H Promyelocytes # 1.2 H 0.2 H Platelet Estimate INCREASED NORMAL Giant Platelets 2 H Polychromasia 3+ 1+ Poikilocytosis 3+ 1+ Anisocytosis 3+ 1+ Microcytosis 2+ 1+ Macrocytosis 2+ 1+ Sodium Level 142 141 Potassium Level 3.5 2.7 *L Chloride Level 101 100 Carbon Dioxide 6 *L 17 #L Level Anion Gap 35 H 24 #H Blood Urea 89 H 92 H Nitrogen Creatinine 3.55 H 3.12 H Est Glomerular 13 L 15 L Filtrat Rate mL/min Glucose Level 128 # 197 Calcium Level 7.2 L 6.7 L Total Bilirubin 0.0 L 0.0 L Direct Bilirubin 0.00 0.00 Indirect 0.0 0.0 Bilirubin Aspartate Amino 186 H 433 H Transf (AST/SGOT) Alanine 48 130 H Aminotransferase (ALT/SGPT) Alkaline 171 H 168 H Phosphatase Creatine Kinase 297 H 323 H Creatine Kinase 4.2 4.9 Index Creatinine Kinase 12.50 H 15.70 H MB (Mass) Troponin I 0.870 *H 1.820 *H Total Protein 5.4 L 4.8 L Albumin 2.5 L 2.2 L Globulin 2.90 2.60 Albumin/Globulin 0.86 0.84 Ratio Lactic Acid Level 10.5 *H 4.6 *H Eosinophils % 1 (Manual) Basophils % Basophils # Nucleated Red Blood Cells # Dimorphic Red 1+ Blood Cells Hemoglobin A1c Thyroid 1.720 Stimulating Hormone (TSH) Prothrombin Time 22.2 #H Prothrombin Time 1.7 Ratio INR International 1.94 Normalized Ratio Activated 31.1 Partial Thrombopl ast Time Test 01/17/19 06:00 01/17/19 10:47 01/17/19 12:31 Blood Gas Blood arterial Specimen Source Arterial Blood 01/17/2019 6:10:2 Date Drawn 3 AM Arterial Blood pH 7.414 (Temp corrected) Arterial Blood 26.5 L pCO2 (Temp correct) Arterial Blood 183.1 H pO2 (Temp corrected) Arterial Blood 16.6 L HCO3 Arterial Blood -7.1 L Base Excess Arterial Blood 98.6 H Oxygen Saturation Jose Test ACCEPTAB Arterial Blood Right Radial Gas Puncture Site Arterial 0.3 Blood Carboxyhemo globin Arterial Blood 0.3 Methemoglobin Blood Gas A-a O2 71.6 H Differential Oxyhemoglobin 98.0 Percent Blood Gas 37.0 Temperature Blood Gas 20.0 Respiration Rate Blood Gas Actual 24 Respiration Rate Blood Gas VENT - AC Modality FiO2 40.0 Blood Gas Tidal 450.0 Volume Blood Gas 17.0 Inspiratory Pressure Blood Gas MG Notified Whom Blood Gas 01/17/2019 6:17:2 Notified Time 8 AM White Blood Count 14.0 H Red Blood Count 2.85 #L Hemoglobin 8.1 #L Hematocrit 24.7 #L Mean Corpuscular 86.7 Volume Mean Corpuscular 28.4 L Hemoglobin Mean Corpuscular 32.8 Hemoglobin Concen t Red Cell 14.9 H Distribution Width Platelet Count 246 # Mean Platelet 8.8 Volume Immature 7.100 H Granulocytes % Neutrophils % Lymphocytes % Monocytes % Eosinophils % Basophils % Nucleated Red 0.4 H Blood Cells % Immature 0.990 H Granulocytes # Neutrophils # Lymphocytes # Monocytes # Eosinophils # Basophils # Nucleated Red Blood Cells # Sodium Level 142 Potassium Level 2.8 *L Chloride Level 102 Carbon Dioxide 20 L Level Anion Gap 20 H Blood Urea 93 H Nitrogen Creatinine 2.87 H Est Glomerular 17 L Filtrat Rate mL/min Glucose Level 148 # Lactic Acid Level 1.5 Calcium Level 6.6 L Creatine Kinase 303 H Creatine Kinase 4.3 Index Creatinine Kinase 12.90 H MB (Mass) Troponin I 4.280 *H Bedside Glucose 156 Subjective 24 Hr Interval Summary Subjective hx not possible: pt non-verbal Exam/Review of Systems Exam Vitals Vital Signs Date Temp Pulse Resp B/P (MAP) Pulse Ox O2 O2 Flow FiO2 Time Delivery Rate 01/17/19 102 30 126/70 100 Mechanical 14:00 (88) Ventilator 01/17/19 40 12:00 01/17/19 98.9 12:00 Intake and Output 01/16/19 01/16/19 01/17/19 1515:00 23:00 07:00 IntakeIntake Total 50 ml 2334.5 ml OutputOutput Total 650 ml BalanceBalance 50 ml 1684.5 ml Constitutional: non-verbal ENMT: intubated Respiratory: clear to auscultation Cardiovascular: regular rate and rhythm Gastrointestinal: soft; No distended Musculoskeletal: nl extremities to inspection Results Results 24hrs Laboratory Tests Test 01/16/19 21:19 01/16/19 21:28 01/16/19 21:29 01/16/19 21:30 Blood Gas Blood arterial Specimen Source Arterial Blood 01/16/2019 9:17:5 Date Drawn 3 PM Arterial Blood pH 6.902 *L (Temp corrected) Arterial Blood 10.7 L pCO2 (Temp correct) Arterial Blood 200.4 H pO2 (Temp corrected) Arterial Blood 2.1 *L HCO3 Arterial Blood -27.4 L Base Excess Arterial Blood 98.6 H Oxygen Saturation Jose Test N/A Arterial Blood Right Brachial Gas Puncture Site Arterial 1.4 Blood Carboxyhemo globin Arterial Blood 0.6 Methemoglobin Blood Gas A-a O2 501.9 H Differential Oxyhemoglobin 96.6 Percent Blood Gas 37.0 Temperature Blood Gas MASK - NRB Modality FiO2 100.0 Blood Gas Herminia FREY MD Critical Value Read Back Blood Gas AA Notified Whom Blood Gas 01/16/2019 9:27:0 Notified Time 0 PM Phosphorus Level 12.3 H Magnesium Level 2.7 H Prothrombin Time 28.8 H Prothrombin Time 2.3 Ratio INR International 2.71 Normalized Ratio Activated 33.8 Partial Thrombopl ast Time Sodium Level 139 Potassium Level 4.3 Chloride Level 97 Carbon Dioxide < 5 *L Level Anion Gap 37 H Blood Urea 92 H Nitrogen Creatinine 4.01 H Est Glomerular 12 L Filtrat Rate mL/min Glucose Level 179 Lactic Acid Level 23.3 *H Calcium Level 8.0 L Total Bilirubin 0.0 L Direct Bilirubin 0.00 Indirect 0.0 Bilirubin Aspartate Amino 100 H Transf (AST/SGOT) Alanine 34 Aminotransferase (ALT/SGPT) Alkaline 186 H Phosphatase Troponin I 0.405 *H C-Reactive 16.2 H 14.2 H Protein Total Protein 6.0 L Albumin 2.8 L Globulin 3.20 Albumin/Globulin 0.87 Ratio White Blood Count 91.3 H Red Blood Count 0.82 L Hemoglobin 2.3 *L Hematocrit 9.3 L Mean Corpuscular 113.4 H Volume Mean Corpuscular 28.0 L Hemoglobin Mean Corpuscular 24.7 L Hemoglobin Concen t Red Cell 26.4 H Distribution Width Platelet Count 805 H Mean Platelet 9.7 Volume Immature 21.200 H Granulocytes % Neutrophils % Segmented 52 Neutrophils % (Manual) Band Neutrophils 11 H % (Manual) Lymphocytes % Lymphocytes % 27 (Manual) Monocytes % Monocytes % 2 (Manual) Eosinophils % Basophils % Myelocytes % 7 H (Manual) Nucleated Red 4 H Blood Cells % Immature 19.330 H Granulocytes # Neutrophils # Neutrophils # 56.6 H (Manual) Band Neutrophils 10.0 H # Lymphocytes 24.6 H (Manual) Lymphocytes # Monocytes # Monocytes # 1.8 H (Manual) Eosinophils # Basophils # Myelocytes # 6.3 H Nucleated Red Blood Cells # Pathologist Y Review (Hematolog y) Platelet Estimate INCREASED Polychromasia 3+ Poikilocytosis 3+ Anisocytosis 2+ Microcytosis 1+ Macrocytosis 1+ Erythrocyte > 130.0 H Sedimentation Rate Test 01/16/19 21:54 01/16/19 22:51 01/16/19 23:14 01/16/19 23:42 Blood Gas Blood arterial Specimen Source Arterial Blood 01/16/2019 11:16: Date Drawn 59 PM Arterial Blood pH 6.892 *L (Temp corrected) Arterial Blood 26.9 L pCO2 (Temp correct) Arterial Blood 529.7 H pO2 (Temp corrected) Arterial Blood 5.1 *L HCO3 Arterial Blood -24.4 L Base Excess Arterial Blood 99.7 H Oxygen Saturation Jose Test ACCEPTAB Arterial Blood Right Brachial Gas Puncture Site Arterial 0.1 Blood Carboxyhemo globin Arterial Blood 0.6 Methemoglobin Blood Gas A-a O2 156.4 H Differential Oxyhemoglobin 99.0 Percent Blood Gas 37.0 Temperature Blood Gas 20.0 Respiration Rate Blood Gas Actual 20 Respiration Rate Blood Gas VENT - AC Modality FiO2 100.0 Blood Gas Tidal 450.0 Volume Blood Gas EKBALJEET LOPEZ Critical Value Read Back Blood Gas MALENA CURIEL Notified Whom Blood Gas 01/16/2019 11:29: Notified Time 10 PM Urine Color YELLOW Urine Clarity TURBID A Urine pH 5.0 Urine Specific 1.015 [place] Urine Ketones NEGATIVE Urine Nitrite NEGATIVE Urine Bilirubin NEGATIVE Urine NEGATIVE Urobilinogen Urine Leukocyte 1+ H Esterase Urine Microscopic 63 H RBC Urine Microscopic > 182 H WBC Urine Yeast FEW A (Budding) Urine Hemoglobin 3+ H Urine Glucose NEGATIVE Urine Total 2+ H Protein Lactic Acid Level 17.8 *H Fibrinogen 343.0 Test 01/17/19 00:34 01/17/19 02:02 01/17/19 04:30 01/17/19 05:27 White Blood Count 60.8 #H 14.4 #H Red Blood Count 1.15 #L 1.89 #L Hemoglobin 3.3 #*L 5.4 #*L Hematocrit 12.1 #L 17.0 #L Mean Corpuscular 105.2 H 89.9 Volume Mean Corpuscular 28.7 L 28.6 L Hemoglobin Mean Corpuscular 27.3 L 31.8 L Hemoglobin Concen t Red Cell 19.9 #H 16.0 H Distribution Width Platelet Count 553 #H 312 # Mean Platelet 9.5 9.1 Volume Immature 23.200 H 14.400 H Granulocytes % Neutrophils % Segmented 57 83 H Neutrophils % (Manual) Band Neutrophils 13 H 7 H % (Manual) Lymphocytes % Lymphocytes % 18 7 L (Manual) Monocytes % Monocytes % 5 (Manual) Eosinophils % Basophils % 1 (Manual) Metamyelocytes % 1 H 2 H (manual) Myelocytes % 3 H 1 H (Manual) Promyelocytes % 2 H 2 H (Manual) Nucleated Red 1.4 H 1 H Blood Cells % Immature 14.100 H 2.080 H Granulocytes # Neutrophils # Neutrophils # 39.5 H 12.1 H (Manual) Band Neutrophils 7.9 H 1.0 H # Lymphocytes 10.9 H 1.0 (Manual) Lymphocytes # Monocytes # Monocytes # 3.0 H (Manual) Eosinophils # Basophils # 0.6 H (Manual) Metamyelocytes # 0.6 H 0.2 H Myelocytes # 1.8 H 0.1 H Promyelocytes # 1.2 H 0.2 H Platelet Estimate INCREASED NORMAL Giant Platelets 2 H Polychromasia 3+ 1+ Poikilocytosis 3+ 1+ Anisocytosis 3+ 1+ Microcytosis 2+ 1+ Macrocytosis 2+ 1+ Sodium Level 142 141 Potassium Level 3.5 2.7 *L Chloride Level 101 100 Carbon Dioxide 6 *L 17 #L Level Anion Gap 35 H 24 #H Blood Urea 89 H 92 H Nitrogen Creatinine 3.55 H 3.12 H Est Glomerular 13 L 15 L Filtrat Rate mL/min Glucose Level 128 # 197 Calcium Level 7.2 L 6.7 L Total Bilirubin 0.0 L 0.0 L Direct Bilirubin 0.00 0.00 Indirect 0.0 0.0 Bilirubin Aspartate Amino 186 H 433 H Transf (AST/SGOT) Alanine 48 130 H Aminotransferase (ALT/SGPT) Alkaline 171 H 168 H Phosphatase Creatine Kinase 297 H 323 H Creatine Kinase 4.2 4.9 Index Creatinine Kinase 12.50 H 15.70 H MB (Mass) Troponin I 0.870 *H 1.820 *H Total Protein 5.4 L 4.8 L Albumin 2.5 L 2.2 L Globulin 2.90 2.60 Albumin/Globulin 0.86 0.84 Ratio Lactic Acid Level 10.5 *H 4.6 *H Eosinophils % 1 (Manual) Basophils % Basophils # Nucleated Red Blood Cells # Dimorphic Red 1+ Blood Cells Hemoglobin A1c Thyroid 1.720 Stimulating Hormone (TSH) Prothrombin Time 22.2 #H Prothrombin Time 1.7 Ratio INR International 1.94 Normalized Ratio Activated 31.1 Partial Thrombopl ast Time Test 01/17/19 06:00 01/17/19 10:47 01/17/19 12:31 Blood Gas Blood arterial Specimen Source Arterial Blood 01/17/2019 6:10:2 Date Drawn 3 AM Arterial Blood pH 7.414 (Temp corrected) Arterial Blood 26.5 L pCO2 (Temp correct) Arterial Blood 183.1 H pO2 (Temp corrected) Arterial Blood 16.6 L HCO3 Arterial Blood -7.1 L Base Excess Arterial Blood 98.6 H Oxygen Saturation Jose Test ACCEPTAB Arterial Blood Right Radial Gas Puncture Site Arterial 0.3 Blood Carboxyhemo globin Arterial Blood 0.3 Methemoglobin Blood Gas A-a O2 71.6 H Differential Oxyhemoglobin 98.0 Percent Blood Gas 37.0 Temperature Blood Gas 20.0 Respiration Rate Blood Gas Actual 24 Respiration Rate Blood Gas VENT - AC Modality FiO2 40.0 Blood Gas Tidal 450.0 Volume Blood Gas 17.0 Inspiratory Pressure Blood Gas MG Notified Whom Blood Gas 01/17/2019 6:17:2 Notified Time 8 AM White Blood Count 14.0 H Red Blood Count 2.85 #L Hemoglobin 8.1 #L Hematocrit 24.7 #L Mean Corpuscular 86.7 Volume Mean Corpuscular 28.4 L Hemoglobin Mean Corpuscular 32.8 Hemoglobin Concen t Red Cell 14.9 H Distribution Width Platelet Count 246 # Mean Platelet 8.8 Volume Immature 7.100 H Granulocytes % Neutrophils % Lymphocytes % Monocytes % Eosinophils % Basophils % Nucleated Red 0.4 H Blood Cells % Immature 0.990 H Granulocytes # Neutrophils # Lymphocytes # Monocytes # Eosinophils # Basophils # Nucleated Red Blood Cells # Sodium Level 142 Potassium Level 2.8 *L Chloride Level 102 Carbon Dioxide 20 L Level Anion Gap 20 H Blood Urea 93 H Nitrogen Creatinine 2.87 H Est Glomerular 17 L Filtrat Rate mL/min Glucose Level 148 # Lactic Acid Level 1.5 Calcium Level 6.6 L Creatine Kinase 303 H Creatine Kinase 4.3 Index Creatinine Kinase 12.90 H MB (Mass) Troponin I 4.280 *H Bedside Glucose 156 Medications Medication Current Medications Norepinephrine 250 ml @ 1.875 mls/ hr TITRATE IV ; Start 01/16/19 at 22:00 Vancomycin HCl (Vanco Iv Per Pharmacy) VANCOMYCIN PER PHARMACY PER PROTOCOL XX ; Start 01/16/19 at 23:30 Albuterol (Ventolin Hfa) 4 puff Q2H RESP THERAPY PRN INH SHORTNESS OF BREATH; Start 01/17/19 at 00:00 Ipratropium [place] (Atrovent Hfa) 4 puff Q2H RESP THERAPY PRN INH SHORTNESS OF BREATH; Start 01/17/19 at 00:00 Acetaminophen (Tylenol Liquid) 650 mg Q6H PRN PO PAIN LEVEL 1-3 OR FEVER; Start 01/17/19 at 00:00 Piperacillin Sod/ Tazobactam Sod 50 ml @ 100 mls/hr Q8 IVPB Last administered on 01/17/19at 14:17; Admin Dose 100 MLS/HR; Start 01/17/19 at 14:00 Propofol 100 ml @ 1.698 mls/ hr Q12H IV Last administered on 01/17/19at 10:30; Admin Dose 10.188 MLS/HR; Start 01/17/19 at 10:30 Diagnostic Test (Pha) (Accu-Chek) 1 ea 02 XX ; Start 01/18/19 at 02:00 Insulin Aspart (Novolog Insulin Pen) NOVOLOG *MILD* ALGORI... Q4 SC Last a dministered on 01/17/19at 12:34; Admin Dose 1 UNIT; Start 01/17/19 at 13:00 Miscellaneous Information 1 ea NOTE XX ; Start 01/17/19 at 11:00 Glucose (Glutose) 15 gm Q15M PRN PO DECREASED GLUCOSE; Start 01/17/19 at 11:00 Glucose (Glutose) 22.5 gm Q15M PRN PO DECREASED GLUCOSE; Start 01/17/19 at 11:0 0 Dextrose (D50w Syringe) 25 ml Q15M PRN IV DECREASED GLUCOSE; Start 01/17/19 at 11:00 Dextrose (D50w Syringe) 50 ml Q15M PRN IV DECREASED GLUCOSE; Start 01/17/19 at 11:00 Glucagon (Glucagen) 1 mg Q15M PRN IM DECREASED GLUCOSE; Start 01/17/19 at 11:00 Glucose (Glutose) 15 gm Q15M PRN BUCCAL DECREASED GLUCOSE; Start 01/17/19 at 11:00 Sodium Chloride 1,000 ml @ 100 mls/hr Q10H IV Last administered on 01/17/19at 12:24; Admin Dose 100 MLS/HR; Start 01/17/19 at 11:00 Famotidine (Pepcid Iv) 20 mg DAILY IV ; Start 01/18/19 at 09:00 Miscellaneous Information (*Rx Drug Level Order Reminder*) RANDOM VANCOMYCIN LEVEL 3... ONCE ONCE XX ; Start 01/18/19 at 05:00; Stop 01/18/19 at 05:01 Potassium Chloride 50 ml @ 25 mls/hr Q2H IVPB ; Start 01/17/19 at 14:30; Stop 01/17/19 at 20:29 ALLISON WOLFF Jan 17, 2019 14:36
[2019-01-17] MEDS: COLLAGENASE 5 GM (UD JAR) TOP SCH (17:00)
--- NOTE | 2019-01-17 18:32 | CONS ---
Assessment/Plan Assessment/Plan Hospital Course (Demo Recall) 58-year-old female with a past medical history of ambulatory dysfunction was f ound confused and weak by her sister at home. Patient was brought in via EMS and was noted to be confused but she was answering questions appropriately according to the ER doctor. Patient in the emergency department was also noted to be hypothermic and given her low GCS score patient was emergently intubated. She was found to have severe anemia with a hemoglobin of 2 along with lactic acidosis and renal failure. The patient was transfused and had a CT scan of the abdomen and pelvis that showed: 1. Pneumoperitoneum compatible with a perforated hollow viscus, the etiology of which is uncertain, severe constipation pattern is present. 2. Abnormal urinary bladder with a May catheter and gas both within the bladder and the bladder wall unable to exclude emphysematous cystitis and possibly a fistula with the adjacent colon. An abscess anterior to the urinary bladder is the possibility on this exam limited by the lack of intravenous contrast media. 3. Gallbladder distension with common bile duct dilatation but no evidence of calcified gallstones, findings of uncertain significance. 4. Gas is present within the right renal pelvis and right ureter for urinary tract infection with mild right hydroureter. 5. Mild splenomegaly. 6. Adrenal gland hyperplasia greater on the left. 7. Anasarca pattern. 8. Chronic T11 compression fracture deformity. The may catheter that she has now is draining cloudy urine. The urine culture is showing 100,000 colony per mL of gram-negative rods. Impression: urinary tract infection and possible colovesical fistula. Recommendation: For now keep the May catheter and treat her infection and once she is stable later on one could do a CT cystogram and/or cystoscopy, colonoscopy to find out what is the problem. Consultation Date/Type/Reason Admit Date/Time January 16, 2019 Date of Consultation: Jan 17, 2019 Type of Consult Urology Reason for Consultation Possible colovesical fistula versus emphysematous cystitis Requesting Provider: NINA HOLT Date/Time of Note DATE: 01/17/19 TIME: 18:17 Hx of Present Illness 58-year-old female with a past medical history of ambulatory dysfunction was found confused and weak by her sister at home. Patient was brought in via EMS and was noted to be confused but she was answering questions appropriately according to the ER doctor. Patient in the emergency department was also noted to be hypothermic and given her low GCS score patient was emergently intubated. She was found to have severe anemia with a hemoglobin of 2 along with lactic acidosis and renal failure. The patient was transfused and had a CT scan of the abdomen and pelvis that showed: 1. Pneumoperitoneum compatible with a perforated hollow viscus, the etiology of which is uncertain, severe constipation pattern is present. 2. Abnormal urinary bladder with a May catheter and gas both within the bladder and the bladder wall unable to exclude emphysematous cystitis and possibly a fistula with the adjacent colon. An abscess anterior to the urinary bladder is the possibility on this exam limited by the lack of intravenous contrast media. 3. Gallbladder distension with common bile duct dilatation but no evidence of calcified gallstones, findings of uncertain significance. 4. Gas is present within the right renal pelvis and right ureter for urinary tract infection with mild right hydroureter. 5. Mild splenomegaly. 6. Adrenal gland hyperplasia greater on the left. 7. Anasarca pattern. 8. Chronic T11 compression fracture deformity. Critical results discussed by telephone with Dr. Brumfield at 1:01 am. Because of these findings a urology consultation was requested the patient is presently intubated and on a respirator therefore unable to give any history. I reviewed her medical record. Constitutional: other (Patient is on a ventilator) Eyes: no complaints ENT: no complaints Respiratory: other (Patient on a respirator) Cardiovascular: other (Patient admitted with septic shock) Musculoskeletal: no complaints Skin: no complaints Neurologic: focal-weakness Past Medical History Medical History: diabetes (Possible), renal disease, urinary tract infection Medications Current Medications Norepinephrine 250 ml @ 1.875 mls/ hr TITRATE IV ; Start 01/16/19 at 22:00 Vancomycin HCl (Vanco Iv Per Pharmacy) VANCOMYCIN PER PHARMACY PER PROTOCOL XX ; Start 01/16/19 at 23:30 Albuterol (Ventolin Hfa) 4 puff Q2H RESP THERAPY PRN INH SHORTNESS OF BREATH; Start 01/17/19 at 00:00 Ipratropium [place] (Atrovent Hfa) 4 puff Q2H RESP THERAPY PRN INH SHORTNESS OF BREATH; Start 01/17/19 at 00:00 Acetaminophen (Tylenol Liquid) 650 mg Q6H PRN PO PAIN LEVEL 1-3 OR FEVER; Start 01/17/19 at 00:00 Piperacillin Sod/ Tazobactam Sod 50 ml @ 100 mls/hr Q8 IVPB Last administered on 01/17/19at 14:17; Admin Dose 100 MLS/HR; Start 01/17/19 at 14:00 Propofol 100 ml @ 1.698 mls/ hr Q12H IV Last administered on 01/17/19at 17:12; Admin Dose 15.282 MLS/HR; Start 01/17/19 at 10:30 Diagnostic Test (Pha) (Accu-Chek) 1 ea 02 XX ; Start 01/18/19 at 02:00 Insulin Aspart (Novolog Insulin Pen) NOVOLOG *MILD* ALGORI... Q4 SC Last administered on 01/17/19at 17:21; Admin Dose 1 UNIT; Start 01/17/19 at 13:00 Miscellaneous Information 1 ea NOTE XX ; Start 01/17/19 at 11:00 Glucose (Glutose) 15 gm Q15M PRN PO DECREASED GLUCOSE; Start 01/17/19 at 11:00 Glucose (Glutose) 22.5 gm Q15M PRN PO DECREASED GLUCOSE; Start 01/17/19 at 11:00 Dextrose (D50w Syringe) 25 ml Q15M PRN IV DECREASED GLUCOSE; Start 01/17/19 at 11:00 Dextrose (D50w Syringe) 50 ml Q15M PRN IV DECREASED GLUCOSE; Start 01/17/19 at 11:00 Glucagon (Glucagen) 1 mg Q15M PRN IM DECREASED GLUCOSE; Start 01/17/19 at 11:00 Glucose (Glutose) 15 gm Q15M PRN BUCCAL DECREASED GLUCOSE; Start 01/17/19 at 11:00 Sodium Chloride 1,000 ml @ 100 mls/hr Q10H IV Last administered on 01/17/19at 12:24; Admin Dose 100 MLS/HR; Start 01/17/19 at 11:00 Famotidine (Pepcid Iv) 20 mg DAILY IV ; Start 01/18/19 at 09:00 Miscellaneous Information (*Rx Drug Level Order Reminder*) RANDOM VANCOMYCIN LEVEL 3... ONCE ONCE XX ; Start 01/18/19 at 05:00; Stop 01/18/19 at 05:01 Potassium Chloride 50 ml @ 25 mls/hr Q2H IVPB Last administered on 01/17/19at 17:16; Admin Dose 25 MLS/HR; Start 01/17/19 at 14:30; Stop 01/17/19 at 20:29 Collagenase (Santyl) 1 applic DAILY TOP ; Start 01/17/19 at 17:00 Allergies: Coded Allergies: Unknown: Unable to obtain (Unverified , 01/16/19) Past Surgical History Past Surgical Hx: no surgical history Social History Alcohol Use: other (Previous heavy alcohol use as per the sister) Smoking Status: Unknown if ever smoked Drug Use: none Exam/Review of Systems Exam Vitals Vital Signs Date Temp Pulse Resp B/P (MAP) Pulse Ox O2 O2 Flow FiO2 Time Delivery Rate 01/17/19 102 34 145/73 Mechanical 18:00 (97) Ventilator 01/17/19 99.6 17:00 01/17/19 100 16:00 01/17/19 40 12:00 Intake and Output 01/16/19 01/16/19 01/17/19 1414:59 22:59 06:59 IntakeIntake Total 50 ml 2225.5 ml OutputOutput Total 550 ml BalanceBalance 50 ml 1675.5 ml Constitutional: other (Sedated) Gastrointestinal: distended, firm (Mostly on the left side) Genitourinary - Female: other (Pelvic exam: No mass and no discharge but she is very constipated) Extremities: other (Very stiff extremities); No calf tenderness Neurological: nl mental status Skin: nl turgor Results Result Diagram: 01/17/19 1653 01/17/19 1047 Results 24hrs Laboratory Tests Test 01/16/19 21:19 01/16/19 21:28 01/16/19 21:29 01/16/19 21:30 Blood Gas Blood arterial Specimen Source Arterial Blood 01/16/2019 9:17:5 Date Drawn 3 PM Arterial Blood pH 6.902 *L (Temp corrected) Arterial Blood 10.7 L pCO2 (Temp correct) Arterial Blood 200.4 H pO2 (Temp corrected) Arterial Blood 2.1 *L HCO3 Arterial Blood -27.4 L Base Excess Arterial Blood 98.6 H Oxygen Saturation Jose Test N/A Arterial Blood Right Brachial Gas Puncture Site Arterial 1.4 Blood Carboxyhemo globin Arterial Blood 0.6 Methemoglobin Blood Gas A-a O2 501.9 H Differential Oxyhemoglobin 96.6 Percent Blood Gas 37.0 Temperature Blood Gas MASK - NRB Modality FiO2 100.0 Blood Gas Herminia FREY MD Critical Value Read Back Blood Gas AA Notified Whom Blood Gas 01/16/2019 9:27:0 Notified Time 0 PM Phosphorus Level 12.3 H Magnesium Level 2.7 H Prothrombin Time 28.8 H Prothrombin Time 2.3 Ratio INR International 2.71 Normalized Ratio Activated 33.8 Partial Thrombopl ast Time Sodium Level 139 Potassium Level 4.3 Chloride Level 97 Carbon Dioxide < 5 *L Level Anion Gap 37 H Blood Urea 92 H Nitrogen Creatinine 4.01 H Est Glomerular 12 L Filtrat Rate mL/min Glucose Level 179 Lactic Acid Level 23.3 *H Calcium Level 8.0 L Total Bilirubin 0.0 L Direct Bilirubin 0.00 Indirect 0.0 Bilirubin Aspartate Amino 100 H Transf (AST/SGOT) Alanine 34 Aminotransferase (ALT/SGPT) Alkaline 186 H Phosphatase Troponin I 0.405 *H C-Reactive 16.2 H 14.2 H Protein Total Protein 6.0 L Albumin 2.8 L Globulin 3.20 Albumin/Globulin 0.87 Ratio White Blood Count 91.3 H Red Blood Count 0.82 L Hemoglobin 2.3 *L Hematocrit 9.3 L Mean Corpuscular 113.4 H Volume Mean Corpuscular 28.0 L Hemoglobin Mean Corpuscular 24.7 L Hemoglobin Concen t Red Cell 26.4 H Distribution Width Platelet Count 805 H Mean Platelet 9.7 Volume Immature 21.200 H Granulocytes % Neutrophils % Segmented 52 Neutrophils % (Manual) Band Neutrophils 11 H % (Manual) Lymphocytes % Lymphocytes % 27 (Manual) Monocytes % Monocytes % 2 (Manual) Eosinophils % Basophils % Myelocytes % 7 H (Manual) Nucleated Red 4 H Blood Cells % Immature 19.330 H Granulocytes # Neutrophils # Neutrophils # 56.6 H (Manual) Band Neutrophils 10.0 H # Lymphocytes 24.6 H (Manual) Lymphocytes # Monocytes # Monocytes # 1.8 H (Manual) Eosinophils # Basophils # Myelocytes # 6.3 H Nucleated Red Blood Cells # Pathologist Y Review (Hematolog y) Platelet Estimate INCREASED Polychromasia 3+ Poikilocytosis 3+ Anisocytosis 2+ Microcytosis 1+ Macrocytosis 1+ Erythrocyte > 130.0 H Sedimentation Rate Test 01/16/19 21:54 01/16/19 22:51 01/16/19 23:14 01/16/19 23:42 Blood Gas Blood arterial Specimen Source Arterial Blood 01/16/2019 11:16: Date Drawn 59 PM Arterial Blood pH 6.892 *L (Temp corrected) Arterial Blood 26.9 L pCO2 (Temp correct) Arterial Blood 529.7 H pO2 (Temp corrected) Arterial Blood 5.1 *L HCO3 Arterial Blood -24.4 L Base Excess Arterial Blood 99.7 H Oxygen Saturation Jose Test ACCEPTAB Arterial Blood Right Brachial Gas Puncture Site Arterial 0.1 Blood Carboxyhemo globin Arterial Blood 0.6 Methemoglobin Blood Gas A-a O2 156.4 H Differential Oxyhemoglobin 99.0 Percent Blood Gas 37.0 Temperature Blood Gas 20.0 Respiration Rate Blood Gas Actual 20 Respiration Rate Blood Gas VENT - AC Modality FiO2 100.0 Blood Gas Tidal 450.0 Volume Blood Gas SHANTE LOPEZ Critical Value Read Back Blood Gas [facility] Notified Whom Blood Gas 01/16/2019 11:29: Notified Time 10 PM Urine Color YELLOW Urine Clarity TURBID A Urine pH 5.0 Urine Specific 1.015 [place] Urine Ketones NEGATIVE Urine Nitrite NEGATIVE Urine Bilirubin NEGATIVE Urine NEGATIVE Urobilinogen Urine Leukocyte 1+ H Esterase Urine Microscopic 63 H RBC Urine Microscopic > 182 H WBC Urine Yeast FEW A (Budding) Urine Hemoglobin 3+ H Urine Glucose NEGATIVE Urine Total 2+ H Protein Lactic Acid Level 17.8 *H Fibrinogen 343.0 Test 01/17/19 00:34 01/17/19 02:02 01/17/19 04:30 01/17/19 05:27 White Blood Count 60.8 #H 14.4 #H Red Blood Count 1.15 #L 1.89 #L Hemoglobin 3.3 #*L 5.4 #*L Hematocrit 12.1 #L 17.0 #L Mean Corpuscular 105.2 H 89.9 Volume Mean Corpuscular 28.7 L 28.6 L Hemoglobin Mean Corpuscular 27.3 L 31.8 L Hemoglobin Concen t Red Cell 19.9 #H 16.0 H Distribution Width Platelet Count 553 #H 312 # Mean Platelet 9.5 9.1 Volume Immature 23.200 H 14.400 H Granulocytes % Neutrophils % Segmented 57 83 H Neutrophils % (Manual) Band Neutrophils 13 H 7 H % (Manual) Lymphocytes % Lymphocytes % 18 7 L (Manual) Monocytes % Monocytes % 5 (Manual) Eosinophils % Basophils % 1 (Manual) Metamyelocytes % 1 H 2 H (manual) Myelocytes % 3 H 1 H (Manual) Promyelocytes % 2 H 2 H (Manual) Nucleated Red 1.4 H 1 H Blood Cells % Immature 14.100 H 2.080 H Granulocytes # Neutrophils # Neutrophils # 39.5 H 12.1 H (Manual) Band Neutrophils 7.9 H 1.0 H # Lymphocytes 10.9 H 1.0 (Manual) Lymphocytes # Monocytes # Monocytes # 3.0 H (Manual) Eosinophils # Basophils # 0.6 H (Manual) Metamyelocytes # 0.6 H 0.2 H Myelocytes # 1.8 H 0.1 H Promyelocytes # 1.2 H 0.2 H Platelet Estimate INCREASED NORMAL Giant Platelets 2 H Polychromasia 3+ 1+ Poikilocytosis 3+ 1+ Anisocytosis 3+ 1+ Microcytosis 2+ 1+ Macrocytosis 2+ 1+ Sodium Level 142 141 Potassium Level 3.5 2.7 *L Chloride Level 101 100 Carbon Dioxide 6 *L 17 #L Level Anion Gap 35 H 24 #H Blood Urea 89 H 92 H Nitrogen Creatinine 3.55 H 3.12 H Est Glomerular 13 L 15 L Filtrat Rate mL/min Glucose Level 128 # 197 Calcium Level 7.2 L 6.7 L Total Bilirubin 0.0 L 0.0 L Direct Bilirubin 0.00 0.00 Indirect 0.0 0.0 Bilirubin Aspartate Amino 186 H 433 H Transf (AST/SGOT) Alanine 48 130 H Aminotransferase (ALT/SGPT) Alkaline 171 H 168 H Phosphatase Creatine Kinase 297 H 323 H Creatine Kinase 4.2 4.9 Index Creatinine Kinase 12.50 H 15.70 H MB (Mass) Troponin I 0.870 *H 1.820 *H Total Protein 5.4 L 4.8 L Albumin 2.5 L 2.2 L Globulin 2.90 2.60 Albumin/Globulin 0.86 0.84 Ratio Lactic Acid Level 10.5 *H 4.6 *H Eosinophils % 1 (Manual) Basophils % Basophils # Nucleated Red Blood Cells # Dimorphic Red 1+ Blood Cells Hemoglobin A1c Thyroid 1.720 Stimulating Hormone (TSH) Prothrombin Time 22.2 #H Prothrombin Time 1.7 Ratio INR International 1.94 Normalized Ratio Activated 31.1 Partial Thrombopl ast Time Test 01/17/19 06:00 01/17/19 10:47 01/17/19 12:31 01/17/19 16:53 Blood Gas Blood arterial Specimen Source Arterial Blood 01/17/2019 6:10:2 Date Drawn 3 AM Arterial Blood pH 7.414 (Temp corrected) Arterial Blood 26.5 L pCO2 (Temp correct) Arterial Blood 183.1 H pO2 (Temp corrected) Arterial Blood 16.6 L HCO3 Arterial Blood -7.1 L Base Excess Arterial Blood 98.6 H Oxygen Saturation Jose Test ACCEPTAB Arterial Blood Right Radial Gas Puncture Site Arterial 0.3 Blood Carboxyhemo globin Arterial Blood 0.3 Methemoglobin Blood Gas A-a O2 71.6 H Differential Oxyhemoglobin 98.0 Percent Blood Gas 37.0 Temperature Blood Gas 20.0 Respiration Rate Blood Gas Actual 24 Respiration Rate Blood Gas VENT - AC Modality FiO2 40.0 Blood Gas Tidal 450.0 Volume Blood Gas 17.0 Inspiratory Pressure Blood Gas MG Notified Whom Blood Gas 01/17/2019 6:17:2 Notified Time 8 AM White Blood Count 14.0 H 13.1 H Red Blood Count 2.85 #L 2.70 L Hemoglobin 8.1 #L 7.9 L Hematocrit 24.7 #L 23.3 L Mean Corpuscular 86.7 86.3 Volume Mean Corpuscular 28.4 L 29.3 Hemoglobin Mean Corpuscular 32.8 33.9 Hemoglobin Concen t Red Cell 14.9 H 15.3 H Distribution Width Platelet Count 246 # 208 Mean Platelet 8.8 8.9 Volume Immature 7.100 H 4.800 H Granulocytes % Neutrophils % Lymphocytes % Monocytes % Eosinophils % Basophils % Nucleated Red 0.4 H 0.5 H Blood Cells % Immature 0.990 H 0.630 H Granulocytes # Neutrophils # Lymphocytes # Monocytes # Eosinophils # Basophils # Nucleated Red Blood Cells # Sodium Level 142 Potassium Level 2.8 *L Chloride Level 102 Carbon Dioxide 20 L Level Anion Gap 20 H Blood Urea 93 H Nitrogen Creatinine 2.87 H Est Glomerular 17 L Filtrat Rate mL/min Glucose Level 148 # Lactic Acid Level 1.5 Calcium Level 6.6 L Creatine Kinase 303 H Creatine Kinase 4.3 Index Creatinine Kinase 12.90 H MB (Mass) Troponin I 4.280 *H Bedside Glucose 156 Test 01/17/19 16:55 01/17/19 17:17 Prothrombin Time 17.7 #H Prothrombin Time 1.4 Ratio INR International 1.45 Normalized Ratio Activated 27.1 Partial Thrombopl ast Time Lactic Acid Level 0.9 Creatine Kinase 221 H Creatine Kinase 3.8 Index Creatinine Kinase 8.33 H MB (Mass) Troponin I 4.450 *H Bedside Glucose [address] abdomen and pelvis: 1. Pneumoperitoneum compatible with a perforated hollow viscus, the etiology of which is uncertain, severe constipation pattern is present. 2. Abnormal urinary bladder with a May catheter and gas both within the bladder and the bladder wall unable to exclude emphysematous cystitis and possibly a fistula with the adjacent colon. An abscess anterior to the urinary bladder is the possibility on this exam limited by the lack of intravenous contrast media. 3. Gallbladder distension with common bile duct dilatation but no evidence of calcified gallstones, findings of uncertain significance. 4. Gas is present within the right renal pelvis and right ureter for urinary tract infection with mild right hydroureter. 5. Mild splenomegaly. 6. Adrenal gland hyperplasia greater on the left. 7. Anasarca pattern. 8. Chronic T11 compression fracture deformity. Critical results discussed by telephone with Dr. Brumfield at 1:01 am. Medications Medication Current Medications Norepinephrine 250 ml @ 1.875 mls/ hr TITRATE IV ; Start 01/16/19 at 22:00 Vancomycin HCl (Vanco Iv Per Pharmacy) VANCOMYCIN PER PHARMACY PER PROTOCOL XX ; Start 01/16/19 at 23:30 Albuterol (Ventolin Hfa) 4 puff Q2H RESP THERAPY PRN INH SHORTNESS OF BREATH; Start 01/17/19 at 00:00 Ipratropium [place] (Atrovent Hfa) 4 puff Q2H RESP THERAPY PRN INH SHORTNESS OF BREATH; Start 01/17/19 at 00:00 Acetaminophen (Tylenol Liquid) 650 mg Q6H PRN PO PAIN LEVEL 1-3 OR FEVER; Start 01/17/19 at 00:00 Piperacillin Sod/ Tazobactam Sod 50 ml @ 100 mls/hr Q8 IVPB Last administered on 01/17/19at 14:17; Admin Dose 100 MLS/HR; Start 01/17/19 at 14:00 Propofol 100 ml @ 1.698 mls/ hr Q12H IV Last administered on 01/17/19at 17:12; Admin Dose 15.282 MLS/HR; Start 01/17/19 at 10:30 Diagnostic Test (Pha) (Accu-Chek) 1 ea 02 XX ; Start 01/18/19 at 02:00 Insulin Aspart (Novolog Insulin Pen) NOVOLOG *MILD* ALGORI... Q4 SC Last administered on 01/17/19at 17:21; Admin Dose 1 UNIT; Start 01/17/19 at 13:00 Miscellaneous Information 1 ea NOTE XX ; Start 01/17/19 at 11:00 Glucose (Glutose) 15 gm Q15M PRN PO DECREASED GLUCOSE; Start 01/17/19 at 11:00 Glucose (Glutose) 22.5 gm Q15M PRN PO DECREASED GLUCOSE; Start 01/17/19 at 11:00 Dextrose (D50w Syringe) 25 ml Q15M PRN IV DECREASED GLUCOSE; Start 01/17/19 at 11:00 Dextrose (D50w Syringe) 50 ml Q15M PRN IV DECREASED GLUCOSE; Start 01/17/19 at 11:00 Glucagon (Glucagen) 1 mg Q15M PRN IM DECREASED GLUCOSE; Start 01/17/19 at 11:00 Glucose (Glutose) 15 gm Q15M PRN BUCCAL DECREASED GLUCOSE; Start 01/17/19 at 11:00 Sodium Chloride 1,000 ml @ 100 mls/hr Q10H IV Last administered on 01/17/19at 12:24; Admin Dose 100 MLS/HR; Start 01/17/19 at 11:00 Famotidine (Pepcid Iv) 20 mg DAILY IV ; Start 01/18/19 at 09:00 Miscellaneous Information (*Rx Drug Level Order Reminder*) RANDOM VANCOMYCIN LEVEL 3... ONCE ONCE XX ; Start 01/18/19 at 05:00; Stop 01/18/19 at 05:01 Potassium Chloride 50 ml @ 25 mls/hr Q2H IVPB Last administered on 01/17/19at 17:16; Admin Dose 25 MLS/HR; Start 01/17/19 at 14:30; Stop 01/17/19 at 20:29 Collagenase (Santyl) 1 applic DAILY TOP ; Start 01/17/19 at 17:00 TINO RIVERA MD Jan 17, 2019 18:28
--- NOTE | 2019-01-17 21:42 | CONS ---
Assessment/Plan Assessment/Plan Hospital Course (Demo Recall) 1. Pneumoperitoneum with probable perforated hollow viscus. Sepsis with shock. Lactic acidosis. Significant anemia. Not optimized for surgery. Unable to reach family -At current state, patient not a candidate for surgery > will continue medical optimization and reconsider it -Supportive measures -N.p.o. -Pain management -IV Antibiotics -Judicious fluid management. -Urology eval 2. 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 UTI: 2/2 #2 -abx per sensitivity -frequent bladder emptying/cath care 4. Hypochromic anemia: -Monitor and transfuse as needed 5. Sepsis, leukocytosis: WBC normalized -Supportive (antibiotics, fluids,etc) -As above 6. Electrolyte imbalance: -Optimize electrolytes 7. JACKIE: -Limit nephrotoxic meds -Renally dose meds -Per renal 8. Thrombocytopenia mild, -Monitor 9. Transaminitis: Likely 2/ #5 -Trend 10. NSTEMI: -Cardiac optimization per cards Thank you very much for consulting me in this patient's care, Consultation Date/Type/Reason Admit Date/Time January 16, 2019 Date of Consultation: Jan 17, 2019 Type of Consult G. Surgical Reason for Consultation Pneumoperitoneum Sepsis with shock Requesting Provider: ALLISON WOLFF Date/Time of Note DATE: 01/17/19 TIME: 21:42 Hx of Present Illness Margarita Kauffman a 58-year-old female with multiple comorbidities who was brought in by EMS for increased confusion and weakness. She lives with her sister and has been refusing to see a doctor for some time. She may have been in her own excrements. She has multiple skin injuries. Patient found to have profound leukocytosis with WBC of 91.3, decreased to 14.4 additionally she had profound microcytic anemia with a hemoglobin of 2.3 and getting transfusions. Her thrombocytosis has resolved she is noted to have coagulopathy additionally imaging pneumoperitoneum compatible with perforated hollow viscus etiology of which is unclear severe constipation pattern is present. Also abnormal urinary bladder with a Valadez catheter and gas both within the bladder and the bladder wall unable to emphysematous cystitis and possible a fistula within the adjacent colon. Common bile duct is dilated measuring 7 mm without evidence of calcified choledocholithiasis. Surgical consult is obtained for further evaluation and treatment. 12 point review of system is otherwise negative unless addressed in chart Past Medical History Previous heavy alcohol use as reported per the sister Unknown if ever smoked No drug hx Perforated viscous Sepsis with shock DM UTI Renal disease Anemia Transaminitis Significant leukocytosis Thrombocytopenia NSTEMI Home Meds Reported Medications Gabapentin* (Gabapentin*) 100 Mg Capsule, 100 MG PO TID, #90 CAP 01/20/18 Medications Current Medications Norepinephrine 250 ml @ 1.875 mls/ hr TITRATE IV ; Start 01/16/19 at 22:00 Vancomycin HCl (Vanco Iv Per Pharmacy) VANCOMYCIN PER PHARMACY PER PROTOCOL XX ; Start 01/16/19 at 23:30 Albuterol (Ventolin Hfa) 4 puff Q2H RESP THERAPY PRN INH SHORTNESS OF BREATH; Start 01/17/19 at 00:00 Ipratropium [place] (Atrovent Hfa) 4 puff Q2H RESP THERAPY PRN INH SHORTNESS OF BREATH; Start 01/17/19 at 00:00 Acetaminophen (Tylenol Liquid) 650 mg Q6H PRN PO PAIN LEVEL 1-3 OR FEVER; Start 01/17/19 at 00:00 Piperacillin Sod/ Tazobactam Sod 50 ml @ 100 mls/hr Q8 IVPB Last administered on 01/17/19at 14:17; Admin Dose 100 MLS/HR; Start 01/17/19 at 14:00 Propofol 100 ml @ 1.698 mls/ hr Q12H IV Last administered on 01/17/19at 17:12; Admin Dose 15.282 MLS/HR; Start 01/17/19 at 10:30 Diagnostic Test (Pha) (Accu-Chek) 1 ea 02 XX ; Start 01/18/19 at 02:00 Insulin Aspart (Novolog Insulin Pen) NOVOLOG *MILD* ALGORI... Q4 SC Last administered on 01/17/19at 17:21; Admin Dose 1 UNIT; Start 01/17/19 at 13:00 Miscellaneous Information 1 ea NOTE XX ; Start 01/17/19 at 11:00 Glucose (Glutose) 15 gm Q15M PRN PO DECREASED GLUCOSE; Start 01/17/19 at 11:00 Glucose (Glutose) 22.5 gm Q15M PRN PO DECREASED GLUCOSE; Start 01/17/19 at 11:00 Dextrose (D50w Syringe) 25 ml Q15M PRN IV DECREASED GLUCOSE; Start 01/17/19 at 11:00 Dextrose (D50w Syringe) 50 ml Q15M PRN IV DECREASED GLUCOSE; Start 01/17/19 at 11:00 Glucagon (Glucagen) 1 mg Q15M PRN IM DECREASED GLUCOSE; Start 01/17/19 at 11:00 Glucose (Glutose) 15 gm Q15M PRN BUCCAL DECREASED GLUCOSE; Start 01/17/19 at 11:00 Sodium Chloride 1,000 ml @ 100 mls/hr Q10H IV Last administered on 01/17/19at 12:24; Admin Dose 100 MLS/HR; Start 01/17/19 at 11:00 Famotidine (Pepcid Iv) 20 mg DAILY IV ; Start 01/18/19 at 09:00 Miscellaneous Information (*Rx Drug Level Order Reminder*) RANDOM VANCOMYCIN LEVEL 3... ONCE ONCE XX ; Start 01/18/19 at 05:00; Stop 01/18/19 at 05:01 Collagenase (Santyl) 1 applic DAILY TOP Last administered on 01/17/19at 17:00; Admin Dose 1 APPLIC; Start 01/17/19 at 17:00 Fentanyl 100 ml @ 2.5 mls/hr TITRATE IV ; Start 01/17/19 at 21:30 Allergies: Coded Allergies: Penicillins (Verified Allergy, Unknown, 01/20/18) Past Surgical History Past Surgical Hx: no surgical history Family History Significant Family History: no pertinent family hx Social History Alcohol Use: other (Previous heavy alcohol use as per the sister) Smoking Status: Unknown if ever smoked Drug Use: none Exam/Review of Systems Exam Vitals Vital Signs Date Temp Pulse Resp B/P (MAP) Pulse Ox O2 O2 Flow FiO2 Time Delivery Rate 01/17/19 99.8 100 28 110/70 Mechanical 20:00 (83) Ventilator 01/17/19 40 20:00 01/17/19 100 17:41 Intake and Output 01/16/19 01/16/19 01/17/19 1515:00 23:00 07:00 IntakeIntake Total 50 ml 2334.5 ml OutputOutput Total 650 ml BalanceBalance 50 ml 1684.5 ml Exam Constitutional: arousable on vent No distress Psych: nl mood/affect, anxiety (Minimal) Head: normocephalic, atraumatic Eyes: nl conjunctiva, EOMI, nl lids, nl sclera ENMT: nl external ears & nose, nl lips & teeth, mucosa pink and moist, intubated Neck: supple, non-tender; No jvd Respiratory: normal air movement; No congested cough, No labored breathing Cardiovascular: regular rate and rhythm, nl pulses; No edema Gastrointestinal: soft, distended, tender (Diffuse) Genitourinary - Female: nl external genitalia Musculoskeletal: nl extremities to inspection, nl gait and stance Extremities: normal pulses Neurological: mental status (Answers simple questions, follows simple commands), nl strength; No nl speech (Intubated) Skin: No rash or lesions Lymph: nl lymph nodes Results Result Diagram: 01/17/19 1653 01/17/19 1047 Results 24hrs Laboratory Tests Test 01/16/19 21:54 01/16/19 22:51 01/16/19 23:14 01/16/19 23:42 Blood Gas Blood arterial Specimen Source Arterial Blood 01/16/2019 11:16: Date Drawn 59 PM Arterial Blood pH 6.892 *L (Temp corrected) Arterial Blood 26.9 L pCO2 (Temp correct) Arterial Blood 529.7 H pO2 (Temp corrected) Arterial Blood 5.1 *L HCO3 Arterial Blood -24.4 L Base Excess Arterial Blood 99.7 H Oxygen Saturation Jose Test ACCEPTAB Arterial Blood Right Brachial Gas Puncture Site Arterial 0.1 Blood Carboxyhemo globin Arterial Blood 0.6 Methemoglobin Blood Gas A-a O2 156.4 H Differential Oxyhemoglobin 99.0 Percent Blood Gas 37.0 Temperature Blood Gas 20.0 Respiration Rate Blood Gas Actual 20 Respiration Rate Blood Gas VENT - AC Modality FiO2 100.0 Blood Gas Tidal 450.0 Volume Blood Gas SHANTE LOPEZ Critical Value Read Back Blood Gas MALENA CURIEL Notified Whom Blood Gas 01/16/2019 11:29: Notified Time 10 PM Urine Color YELLOW Urine Clarity TURBID A Urine pH 5.0 Urine Specific 1.015 [place] Urine Ketones NEGATIVE Urine Nitrite NEGATIVE Urine Bilirubin NEGATIVE Urine NEGATIVE Urobilinogen Urine Leukocyte 1+ H Esterase Urine Microscopic 63 H RBC Urine Microscopic > 182 H WBC Urine Yeast FEW A (Budding) Urine Hemoglobin 3+ H Urine Glucose NEGATIVE Urine Total 2+ H Protein Lactic Acid Level 17.8 *H Fibrinogen 343.0 Test 01/17/19 00:34 01/17/19 02:02 01/17/19 04:30 01/17/19 05:27 White Blood Count 60.8 #H 14.4 #H Red Blood Count 1.15 #L 1.89 #L Hemoglobin 3.3 #*L 5.4 #*L Hematocrit 12.1 #L 17.0 #L Mean Corpuscular 105.2 H 89.9 Volume Mean Corpuscular 28.7 L 28.6 L Hemoglobin Mean Corpuscular 27.3 L 31.8 L Hemoglobin Concen t Red Cell 19.9 #H 16.0 H Distribution Width Platelet Count 553 #H 312 # Mean Platelet 9.5 9.1 Volume Immature 23.200 H 14.400 H Granulocytes % Neutrophils % Segmented 57 83 H Neutrophils % (Manual) Band Neutrophils 13 H 7 H % (Manual) Lymphocytes % Lymphocytes % 18 7 L (Manual) Monocytes % Monocytes % 5 (Manual) Eosinophils % Basophils % 1 (Manual) Metamyelocytes % 1 H 2 H (manual) Myelocytes % 3 H 1 H (Manual) Promyelocytes % 2 H 2 H (Manual) Nucleated Red 1.4 H 1 H Blood Cells % Immature 14.100 H 2.080 H Granulocytes # Neutrophils # Neutrophils # 39.5 H 12.1 H (Manual) Band Neutrophils 7.9 H 1.0 H # Lymphocytes 10.9 H 1.0 (Manual) Lymphocytes # Monocytes # Monocytes # 3.0 H (Manual) Eosinophils # Basophils # 0.6 H (Manual) Metamyelocytes # 0.6 H 0.2 H Myelocytes # 1.8 H 0.1 H Promyelocytes # 1.2 H 0.2 H Platelet Estimate INCREASED NORMAL Giant Platelets 2 H Polychromasia 3+ 1+ Poikilocytosis 3+ 1+ Anisocytosis 3+ 1+ Microcytosis 2+ 1+ Macrocytosis 2+ 1+ Sodium Level 142 141 Potassium Level 3.5 2.7 *L Chloride Level 101 100 Carbon Dioxide 6 *L 17 #L Level Anion Gap 35 H 24 #H Blood Urea 89 H 92 H Nitrogen Creatinine 3.55 H 3.12 H Est Glomerular 13 L 15 L Filtrat Rate mL/min Glucose Level 128 # 197 Calcium Level 7.2 L 6.7 L Total Bilirubin 0.0 L 0.0 L Direct Bilirubin 0.00 0.00 Indirect 0.0 0.0 Bilirubin Aspartate Amino 186 H 433 H Transf (AST/SGOT) Alanine 48 130 H Aminotransferase (ALT/SGPT) Alkaline 171 H 168 H Phosphatase Creatine Kinase 297 H 323 H Creatine Kinase 4.2 4.9 Index Creatinine Kinase 12.50 H 15.70 H MB (Mass) Troponin I 0.870 *H 1.820 *H Total Protein 5.4 L 4.8 L Albumin 2.5 L 2.2 L Globulin 2.90 2.60 Albumin/Globulin 0.86 0.84 Ratio Lactic Acid Level 10.5 *H 4.6 *H Eosinophils % 1 (Manual) Basophils % Basophils # Nucleated Red Blood Cells # Dimorphic Red 1+ Blood Cells Hemoglobin A1c Thyroid 1.720 Stimulating Hormone (TSH) Prothrombin Time 22.2 #H Prothrombin Time 1.7 Ratio INR International 1.94 Normalized Ratio Activated 31.1 Partial Thrombopl ast Time Test 01/17/19 06:00 01/17/19 10:47 01/17/19 12:31 01/17/19 16:53 Blood Gas Blood arterial Specimen Source Arterial Blood 01/17/2019 6:10:2 Date Drawn 3 AM Arterial Blood pH 7.414 (Temp corrected) Arterial Blood 26.5 L pCO2 (Temp correct) Arterial Blood 183.1 H pO2 (Temp corrected) Arterial Blood 16.6 L HCO3 Arterial Blood -7.1 L Base Excess Arterial Blood 98.6 H Oxygen Saturation Jose Test ACCEPTAB Arterial Blood Right Radial Gas Puncture Site Arterial 0.3 Blood Carboxyhemo globin Arterial Blood 0.3 Methemoglobin Blood Gas A-a O2 71.6 H Differential Oxyhemoglobin 98.0 Percent Blood Gas 37.0 Temperature Blood Gas 20.0 Respiration Rate Blood Gas Actual 24 Respiration Rate Blood Gas VENT - AC Modality FiO2 40.0 Blood Gas Tidal 450.0 Volume Blood Gas 17.0 Inspiratory Pressure Blood Gas MG Notified Whom Blood Gas 01/17/2019 6:17:2 Notified Time 8 AM White Blood Count 14.0 H 13.1 H Red Blood Count 2.85 #L 2.70 L Hemoglobin 8.1 #L 7.9 L Hematocrit 24.7 #L 23.3 L Mean Corpuscular 86.7 86.3 Volume Mean Corpuscular 28.4 L 29.3 Hemoglobin Mean Corpuscular 32.8 33.9 Hemoglobin Concen t Red Cell 14.9 H 15.3 H Distribution Width Platelet Count 246 # 208 Mean Platelet 8.8 8.9 Volume Immature 7.100 H 4.800 H Granulocytes % Neutrophils % Lymphocytes % Monocytes % Eosinophils % Basophils % Nucleated Red 0.4 H 0.5 H Blood Cells % Immature 0.990 H 0.630 H Granulocytes # Neutrophils # Lymphocytes # Monocytes # Eosinophils # Basophils # Nucleated Red Blood Cells # Sodium Level 142 Potassium Level 2.8 *L Chloride Level 102 Carbon Dioxide 20 L Level Anion Gap 20 H Blood Urea 93 H Nitrogen Creatinine 2.87 H Est Glomerular 17 L Filtrat Rate mL/min Glucose Level 148 # Lactic Acid Level 1.5 Calcium Level 6.6 L Creatine Kinase 303 H Creatine Kinase 4.3 Index Creatinine Kinase 12.90 H MB (Mass) Troponin I 4.280 *H Bedside Glucose 156 Segmented 75 Neutrophils % (Manual) Band Neutrophils 11 H % (Manual) Lymphocytes % 12 L (Manual) Myelocytes % 2 H (Manual) Neutrophils # 10.0 H (Manual) Band Neutrophils 1.4 H # Lymphocytes 1.5 (Manual) Myelocytes # 0.2 H Platelet Estimate NORMAL Polychromasia 1+ Poikilocytosis 1+ Anisocytosis 2+ Microcytosis 1+ Ovalocytes 1+ Test 01/17/19 16:55 01/17/19 17:17 Prothrombin Time 17.7 #H Prothrombin Time 1.4 Ratio INR International 1.45 Normalized Ratio Activated 27.1 Partial Thrombopl ast Time Lactic Acid Level 0.9 Creatine Kinase 221 H Creatine Kinase 3.8 Index Creatinine Kinase 8.33 H MB (Mass) Troponin I 4.450 *H Bedside Glucose 153 Medications Medication Current Medications Norepinephrine 250 ml @ 1.875 mls/ hr TITRATE IV ; Start 01/16/19 at 22:00 Vancomycin HCl (Vanco Iv Per Pharmacy) VANCOMYCIN PER PHARMACY PER PROTOCOL XX ; Start 01/16/19 at 23:30 Albuterol (Ventolin Hfa) 4 puff Q2H RESP THERAPY PRN INH SHORTNESS OF BREATH; Start 01/17/19 at 00:00 Ipratropium [place] (Atrovent Hfa) 4 puff Q2H RESP THERAPY PRN INH SHORTNESS OF BREATH; Start 01/17/19 at 00:00 Acetaminophen (Tylenol Liquid) 650 mg Q6H PRN PO PAIN LEVEL 1-3 OR FEVER; Start 01/17/19 at 00:00 Piperacillin Sod/ Tazobactam Sod 50 ml @ 100 mls/hr Q8 IVPB Last administered on 01/17/19at 14:17; Admin Dose 100 MLS/HR; Start 01/17/19 at 14:00 Propofol 100 ml @ 1.698 mls/ hr Q12H IV Last administered on 01/17/19at 17:12; Admin Dose 15.282 MLS/HR; Start 01/17/19 at 10:30 Diagnostic Test (Pha) (Accu-Chek) 1 ea 02 XX ; Start 01/18/19 at 02:00 Insulin Aspart (Novolog Insulin Pen) NOVOLOG *MILD* ALGORI... Q4 SC Last administered on 01/17/19at 17:21; Admin Dose 1 UNIT; Start 01/17/19 at 13:00 Miscellaneous Information 1 ea NOTE XX ; Start 01/17/19 at 11:00 Glucose (Glutose) 15 gm Q15M PRN PO DECREASED GLUCOSE; Start 01/17/19 at 11:00 Glucose (Glutose) 22.5 gm Q15M PRN PO DECREASED GLUCOSE; Start 01/17/19 at 11:00 Dextrose (D50w Syringe) 25 ml Q15M PRN IV DECREASED GLUCOSE; Start 01/17/19 at 11:00 Dextrose (D50w Syringe) 50 ml Q15M PRN IV DECREASED GLUCOSE; Start 01/17/19 at 11:00 Glucagon (Glucagen) 1 mg Q15M PRN IM DECREASED GLUCOSE; Start 01/17/19 at 11:00 Glucose (Glutose) 15 gm Q15M PRN BUCCAL DECREASED GLUCOSE; Start 01/17/19 at 11:00 Sodium Chloride 1,000 ml @ 100 mls/hr Q10H IV Last administered on 01/17/19at 12:24; Admin Dose 100 MLS/HR; Start 01/17/19 at 11:00 Famotidine (Pepcid Iv) 20 mg DAILY IV ; Start 01/18/19 at 09:00 Miscellaneous Information (*Rx Drug Level Order Reminder*) RANDOM VANCOMYCIN LEVEL 3... ONCE ONCE XX ; Start 01/18/19 at 05:00; Stop 01/18/19 at 05:01 Collagenase (Santyl) 1 applic DAILY TOP Last administered on 01/17/19at 17:00; Admin Dose 1 APPLIC; Start 01/17/19 at 17:00 Fentanyl 100 ml @ 2.5 mls/hr TITRATE IV ; Start 01/17/19 at 21:30 ALEK HANDLEY MD Jan 17, 2019 21:42
[2019-01-17] MEDS: FENTAnyl (DRIP) 1000 mcg/100mL 100 ML IV SCH (21:47)
[2019-01-18] VITALS (53 sets, daily range): BP systolic 91–155; BP diastolic 55–100; PULSE 67–105; RESP 12–28
[2019-01-18] MEDS: ACCU-CHEK XX SCH (01:24)
[2019-01-18] MEDS: INSULIN ASPART [NOVOLOG] 3 ML PEN SC SCH ×6 (01:24→21:00)
[2019-01-18] MEDS: PROPOFOL 100 ML IV SCH ×3 (04:47→23:08)
[2019-01-18] MEDS: SOD CHLORIDE 0.9% 1,000 ML IV SCH ×2 (05:39→16:35)
[2019-01-18] MEDS: PIPER-TAZO 2.25 GM (PMX) 50 ML IVPB SCH ×3 (05:39→18:00)
--- NOTE | 2019-01-18 07:05 | CONS ---
Assessment/Plan Assessment/Plan Hospital Course (Demo Recall) 1) pneumoperitoneum and sepsis could be related to pt taking motrin for some pain continue with vanco/zosyn at present to renally dose them await decision by family regarding surgery vs hospice 01/18 - continue with vanco/zosyn CoNS in blood, only one bottle, likely represents contamination e.coli in urine is sensitive to the zosyn pt has EtOH abuse lactic acid has normalized 2)severe anemia pt is being transfused only smears of stool since admission to get hemoccult 01/18 - Hgb is more stable 3) ARF with pyuria and hematuria improving with hydration and blood tx await urine cx results 01/18 - improving urine output and creatinine urine cx has e.coli that is sensitive to zosyn renal u/s suggests hydro on the R and possible renal clot or debris on L 4) elevated troponins likely due to stress from severe anemia 5) hepatitis again likely due to sepsis and severe anemia check hep serologies 01/18 - hep serologies are pending 6) L hip eschar/decubitus unstageable wound cx was ordered 01/18 - wound cx has not been done, nurse was informed 7) hypoalbuminemia pt came in with low albumin, she has likely been sick or not eating well for a while 8) CoNS bacteremia 01/18 - only one bottle has CoNS, likely this is contamination continue with vanco at present, await final wound cx results Consultation Date/Type/Reason Admit Date/Time Jan 16, 2019 at 23:33 Initial Consult Date 01/17/19 Type of Consult ID Requesting Provider: NINA HOLT Date/Time of Note DATE: 01/18/19 TIME: 06:54 24 HR Interval Summary Free Text/Dictation spoke to daughter and nurse pt is on sedation but when weaned off she is agitated with nurse but responds to daughter appropriately good urine output, no stool remains intubated Exam/Review of Systems Exam Vitals Vital Signs Date Temp Pulse Resp B/P (MAP) Pulse Ox O2 O2 Flow FiO2 Time Delivery Rate 01/18/19 75 19 96/57 (70) 100 Mechanical 05:30 Ventilator 01/18/19 40 04:36 01/18/19 98.5 04:00 Intake and Output 01/17/19 01/17/19 01/18/19 1515:00 23:00 07:00 IntakeIntake Total 953.002 ml 889.568 ml OutputOutput Total 458 ml 460 ml 425 ml BalanceBalance 495.002 ml 429.568 ml -425 ml Exam sedated and intubated Constitutional: non-verbal ENMT: mucosa pink and moist Respiratory: clear to auscultation Cardiovascular: regular rate and rhythm Gastrointestinal: other (no BS and pt grimaces when abd examined) Results Result Diagram: 01/17/19 1653 01/17/19 1047 Results 24hrs Laboratory Tests Test 01/17/19 10:47 01/17/19 12:31 01/17/19 16:53 01/17/19 16:55 White Blood Count 14.0 H 13.1 H Red Blood Count 2.85 #L 2.70 L Hemoglobin 8.1 #L 7.9 L Hematocrit 24.7 #L 23.3 L Mean Corpuscular 86.7 86.3 Volume Mean Corpuscular 28.4 L 29.3 Hemoglobin Mean Corpuscular 32.8 33.9 Hemoglobin Concen t Red Cell 14.9 H 15.3 H Distribution Width Platelet Count 246 # 208 Mean Platelet 8.8 8.9 Volume Immature 7.100 H 4.800 H Granulocytes % Neutrophils % Lymphocytes % Monocytes % Eosinophils % Basophils % Nucleated Red 0.4 H 0.5 H Blood Cells % Immature 0.990 H 0.630 H Granulocytes # Neutrophils # Lymphocytes # Monocytes # Eosinophils # Basophils # Nucleated Red Blood Cells # Sodium Level 142 Potassium Level 2.8 *L Chloride Level 102 Carbon Dioxide 20 L Level Anion Gap 20 H Blood Urea 93 H Nitrogen Creatinine 2.87 H Est Glomerular 17 L Filtrat Rate mL/min Glucose Level 148 # Lactic Acid Level 1.5 0.9 Calcium Level 6.6 L Creatine Kinase 303 H 221 H Creatine Kinase 4.3 3.8 Index Creatinine Kinase 12.90 H 8.33 H MB (Mass) Troponin I 4.280 *H 4.450 *H Bedside Glucose 156 Segmented 75 Neutrophils % (Manual) Band Neutrophils 11 H % (Manual) Lymphocytes % 12 L (Manual) Myelocytes % 2 H (Manual) Neutrophils # 10.0 H (Manual) Band Neutrophils 1.4 H # Lymphocytes 1.5 (Manual) Myelocytes # 0.2 H Platelet Estimate NORMAL Polychromasia 1+ Poikilocytosis 1+ Anisocytosis 2+ Microcytosis 1+ Ovalocytes 1+ Prothrombin Time 17.7 #H Prothrombin Time 1.4 Ratio INR International 1.45 Normalized Ratio Activated 27.1 Partial Thrombopl ast Time Test 01/17/19 17:17 01/17/19 22:02 01/18/19 01:21 01/18/19 04:51 Bedside Glucose 153 129 164 Lab Scanned BLOOD TRANSFUSIO Report N Test 01/18/19 05:26 01/18/19 05:34 01/18/19 06:23 Prothrombin Time 18.5 H Prothrombin Time 1.4 Ratio INR International 1.53 Normalized Ratio Activated 27.2 Partial Thrombopl ast Time Cholesterol Level 85 L Lipase 1234 H Random Vancomycin 8.7 Level Hepatitis B Pending Surface Antigen Hepatitis B Core Pending Total Antibody Hepatitis C Pending Antibody HIV (1&2) Pending Antibody Bedside Glucose 165 White Blood Count Pending Red Blood Count Pending Hemoglobin Pending Hematocrit Pending Mean Corpuscular Pending Volume Mean Corpuscular Pending Hemoglobin Mean Corpuscular Pending Hemoglobin Concen t Red Cell Pending Distribution Width Platelet Count Pending Mean Platelet Pending Volume Medications Medication Current Medications Norepinephrine 250 ml @ 1.875 mls/ hr TITRATE IV ; Start 01/16/19 at 22:00 Vancomycin HCl (Vanco Iv Per Pharmacy) VANCOMYCIN PER PHARMACY PER PROTOCOL XX ; Start 01/16/19 at 23:30 Albuterol (Ventolin Hfa) 4 puff Q2H RESP THERAPY PRN INH SHORTNESS OF BREATH; Start 01/17/19 at 00:00 Ipratropium [place] (Atrovent Hfa) 4 puff Q2H RESP THERAPY PRN INH SHORTNESS OF BREATH; Start 01/17/19 at 00:00 Acetaminophen (Tylenol Liquid) 650 mg Q6H PRN PO PAIN LEVEL 1-3 OR FEVER; Start 01/17/19 at 00:00 Piperacillin Sod/ Tazobactam Sod 50 ml @ 100 mls/hr Q8 IVPB Last administered on 01/18/19at 05:39; Admin Dose 100 MLS/HR; Start 01/17/19 at 14:00 Propofol 100 ml @ 1.698 mls/ hr Q12H IV Last administered on 01/18/19at 04:47; Admin Dose 16.98 MLS/HR; Start 01/17/19 at 10:30 Diagnostic Test (Pha) (Accu-Chek) 1 ea 02 XX ; Start 01/18/19 at 02:00 Insulin Aspart (Novolog Insulin Pen) NOVOLOG *MILD* ALGORI... Q4 SC Last administered on 01/18/19at 05:38; Admin Dose 1 UNIT; Start 01/17/19 at 13:00 Miscellaneous Information 1 ea NOTE XX ; Start 01/17/19 at 11:00 Glucose (Glutose) 15 gm Q15M PRN PO DECREASED GLUCOSE; Start 01/17/19 at 11:00 Glucose (Glutose) 22.5 gm Q15M PRN PO DECREASED GLUCOSE; Start 01/17/19 at 11:00 Dextrose (D50w Syringe) 25 ml Q15M PRN IV DECREASED GLUCOSE; Start 01/17/19 at 11:00 Dextrose (D50w Syringe) 50 ml Q15M PRN IV DECREASED GLUCOSE; Start 01/17/19 at 11:00 Glucagon (Glucagen) 1 mg Q15M PRN IM DECREASED GLUCOSE; Start 01/17/19 at 11:00 Glucose (Glutose) 15 gm Q15M PRN BUCCAL DECREASED GLUCOSE; Start 01/17/19 at 11:00 Sodium Chloride 1,000 ml @ 100 mls/hr Q10H IV Last administered on 01/18/19at 05:39; Admin Dose 100 MLS/HR; Start 01/17/19 at 11:00 Famotidine (Pepcid Iv) 20 mg DAILY IV ; Start 01/18/19 at 09:00 Collagenase (Santyl) 1 applic DAILY TOP Last administered on 01/17/19at 17:00; Admin Dose 1 APPLIC; Start 01/17/19 at 17:00 Fentanyl 100 ml @ 2.5 mls/hr TITRATE IV Last administered on 01/17/19at 21:47; Admin Dose 2.5 MLS/HR; Start 01/17/19 at 21:30 PATSY LEVY MD Jan 18, 2019 07:04
[2019-01-18] MEDS: FENTAnyl (DRIP) 1000 mcg/100mL 100 ML IV SCH ×2 (07:38→20:45)
--- NOTE | 2019-01-18 08:44 | PN ---
DATE: 01/18/2019 SUBJECTIVE: The patient remains critically ill on pressor support. The patient is on full ventilato ry support. Urinary output has been adequate. No other acute events noted. No hemoptysis, hemateme sis, or hematochezia. The patient is off bicarbonate drip. OBJECTIVE: VITAL SIGNS: Blood pressure is 101/60, respirations 20, pulse 69. HEENT: Head is normocephalic. NECK: Supple. HEART: Regular rate. LUNGS: Show diminished breath sounds at the base. ABDOMEN: Soft, nontender to palpation without rebound or guarding. EXTREMITIES: Negative for clubbing, cyanosis. Trace edema. DERMATOLOGIC: No rashes. MUSCULOSKELETAL: No joint effusion. NEUROLOGIC: No change in exam. MEDICATIONS: Reviewed. LABORATORY DATA: Shows sodium 146, potassium 2.7, chloride 113, bicarbonate 18, BUN 81, creatinine 2 .46, calcium 7.3. The patient's urinalysis was reviewed. Renal ultrasound showed mild right hydrone phrosis, echogenic kidneys, left-sided hydronephrosis. IMAGING STUDIES: Chest x-ray was reviewed. The patient's 2D echo was reviewed, which showed a navjot l IVC with respiratory collapse. Ejection fraction of 45% and a trace aortic valve regurgitation and moderate tricuspid regurgitation. ASSESSMENT AND PLAN: 1. Nonoliguric acute kidney injury with unknown baseline creatinine. Etiology is multifactorial sec ondary to acute tubular necrosis, likely from volume depletion, NSAID use, ischemia, shock, severe an emia. The patient's renal function has been improving with IV fluids, supportive care. A renal ultr asound was reviewed, showed evidence of increased echogenicity consistent with chronic kidney disease . A repeat urinalysis is pending. At this point, we will continue current treatment plan. Continue IV fluids, continue pressor support to maintain MAP of 65. Continue antibiotic therapy. We will co ntinue to monitor renal function closely. No immediate need for renal replacement therapy at this ti me. 2. Hypokalemia, likely due to total body deficit. Continue with potassium chloride repletion and mo nitor magnesium levels. 3. Hypernatremia. The patient has a free water deficit approximately 2 liters. We will continue me dical management. Consider changing IV fluids to have half NS once more hemodynamically stable. 4. Metabolic acidosis secondary to lactic acidosis and acute kidney injury. The patient's ABG was r eviewed, showed appropriate compensation. We will continue to monitor. Currently off bicarbonate dr gabriel. 5. Lactic acidosis secondary to shock, severe anemia. Lactic acid levels have normalized. Continue to monitor. 6. Septic shock secondary pneumoperitoneum and urinary tract infection. Continue broad spectrum ant ibiotics, continue IV fluids, continue wean down pressor support. 7. Ventilator-dependent respiratory failure. Vent settings and ABG was reviewed. Continue to monit or. 8. Severe anemia secondary to gastrointestinal bleed, likely from NSAID use and perforated viscus. The patient is status post blood transfusion, monitor hemoglobin and hematocrit levels. 9. Perforated viscus, possibly from peptic ulcer disease, NSAID use. The patient was evaluated by g eneral surgery. Follow up recommendations. 10. Leukocytosis, likely multifactorial secondary to sepsis and reactive due to severe anemia. Cont inue to monitor, WBC is suddenly trending down. 11. Transaminitis. Continue to monitor. 12. Acute encephalopathy, etiology is toxic metabolic. Please note I spent over 30 minutes of critical care time with this patient. Dictated By: SHAW OLMSTEAD DO NR/NTS Conf#: [id number] DID#: [id number] CC: ALLISON WOLFF MD; ALEK HANDLEY MD; BLAISE MARTINS MD;*End*
[2019-01-18] MEDS: FAMOTIDINE 20 MG INJ IV SCH (09:05)
[2019-01-18] MEDS: COLLAGENASE 5 GM (UD JAR) TOP SCH (09:05)
[2019-01-18] MEDS: POTASSIUM CHLORIDE 50 ML IVPB SCH ×3 (09:05→12:38)
--- NOTE | 2019-01-18 09:11 | CONS ---
Consult Date/Type/Reason Admit Date/Time Jan 16, 2019 at 23:33 Initial Consult Date 01/17/19 Type of Consult Pulmonary Requesting Provider: NINA HOLT Date/Time of Note DATE: 01/18/19 TIME: 09:07 Subjective Appears comfortable this morning no respiratory distress. Hemodynamically stable at present. Objective Vital Signs Date Temp Pulse Resp B/P (MAP) Pulse Ox O2 O2 Flow FiO2 Time Delivery Rate 01/18/19 69 20 101/60 100 Mechanical 07:00 (74) Ventilator 01/18/19 40 04:36 01/18/19 98.5 04:00 Intake and Output 01/17/19 01/17/19 01/18/19 1515:00 23:00 07:00 IntakeIntake Total 953.002 ml 889.568 ml 152.5 ml OutputOutput Total 458 ml 460 ml 425 ml BalanceBalance 495.002 ml 429.568 ml -272.5 ml Exam PHYSICAL EXAMINATION: GENERAL: Chronically ill appearing lady on mechanical ventilation. VITAL SIGNS: NECK: Supple, no JVD or lymphadenopathy. CARDIAC: S1, S2, no added sounds or murmurs. CHEST: Diminished air entry bilaterally. ABDOMEN: Mildly distended. EXTREMITIES: No cyanosis, clubbing, edema. NEUROLOGIC: Unable to assess. Vent Setting Ventilator Support Mode: AC, VC plus Fraction of Inspired Oxygen pe: 40 Positive End Expiratory Pressu: 5.0 Results/Medications Result Diagram: 01/18/19 0623 01/18/19 0627 Results 24 hrs Laboratory Tests Test 01/17/19 10:47 01/17/19 12:31 01/17/19 16:53 01/17/19 16:55 White Blood Count 14.0 H 13.1 H Red Blood Count 2.85 #L 2.70 L Hemoglobin 8.1 #L 7.9 L Hematocrit 24.7 #L 23.3 L Mean Corpuscular 86.7 86.3 Volume Mean Corpuscular 28.4 L 29.3 Hemoglobin Mean Corpuscular 32.8 33.9 Hemoglobin Concen t Red Cell 14.9 H 15.3 H Distribution Width Platelet Count 246 # 208 Mean Platelet 8.8 8.9 Volume Immature 7.100 H 4.800 H Granulocytes % Neutrophils % Lymphocytes % Monocytes % Eosinophils % Basophils % Nucleated Red 0.4 H 0.5 H Blood Cells % Immature 0.990 H 0.630 H Granulocytes # Neutrophils # Lymphocytes # Monocytes # Eosinophils # Basophils # Nucleated Red Blood Cells # Sodium Level 142 Potassium Level 2.8 *L Chloride Level 102 Carbon Dioxide 20 L Level Anion Gap 20 H Blood Urea 93 H Nitrogen Creatinine 2.87 H Est Glomerular 17 L Filtrat Rate mL/min Glucose Level 148 # Lactic Acid Level 1.5 0.9 Calcium Level 6.6 L Creatine Kinase 303 H 221 H Creatine Kinase 4.3 3.8 Index Creatinine Kinase 12.90 H 8.33 H MB (Mass) Troponin I 4.280 *H 4.450 *H Bedside Glucose 156 Segmented 75 Neutrophils % (Manual) Band Neutrophils 11 H % (Manual) Lymphocytes % 12 L (Manual) Myelocytes % 2 H (Manual) Neutrophils # 10.0 H (Manual) Band Neutrophils 1.4 H # Lymphocytes 1.5 (Manual) Myelocytes # 0.2 H Platelet Estimate NORMAL Polychromasia 1+ Poikilocytosis 1+ Anisocytosis 2+ Microcytosis 1+ Ovalocytes 1+ Prothrombin Time 17.7 #H Prothrombin Time 1.4 Ratio INR International 1.45 Normalized Ratio Activated 27.1 Partial Thrombopl ast Time Test 01/17/19 17:17 01/17/19 22:02 01/18/19 01:21 01/18/19 04:51 Bedside Glucose 153 129 164 Lab Scanned BLOOD TRANSFUSIO Report N Test 01/18/19 05:26 01/18/19 05:34 01/18/19 06:23 01/18/19 06:27 Prothrombin Time 18.5 H Prothrombin Time 1.4 Ratio INR International 1.53 Normalized Ratio Activated 27.2 Partial Thrombopl ast Time Sodium Level 145 H 146 H Potassium Level 2.9 *L 2.7 *L Chloride Level 115 H 113 H Carbon Dioxide 18 L 18 L Level Anion Gap 12 # 15 H Blood Urea 82 H 81 H Nitrogen Creatinine 2.53 H 2.46 H Est Glomerular 20 L 20 L Filtrat Rate mL/min Glucose Level 119 119 Calcium Level 7.3 L 7.3 L Total Bilirubin 0.0 L Direct Bilirubin 0.00 Indirect 0.0 Bilirubin Aspartate Amino 322 H Transf (AST/SGOT) Alanine 147 H Aminotransferase (ALT/SGPT) Alkaline 180 H Phosphatase Total Protein 4.9 L Albumin 2.2 L Globulin 2.70 Albumin/Globulin 0.81 Ratio Cholesterol Level 85 L Lipase 1234 H Random Vancomycin 8.7 Level Hepatitis B NEGATIVE Surface Antigen Hepatitis B Core NEGATIVE Total Antibody Hepatitis C NEGATIVE Antibody HIV (1&2) NEGATIVE Antibody Bedside Glucose 165 White Blood Count 10.0 # Red Blood Count 2.40 L Hemoglobin 7.0 L Hematocrit 20.7 L Mean Corpuscular 86.3 Volume Mean Corpuscular 29.2 Hemoglobin Mean Corpuscular 33.8 Hemoglobin Concen t Red Cell 15.9 H Distribution Width Platelet Count 150 # Mean Platelet 9.2 Volume Immature 5.400 H Granulocytes % Neutrophils % Segmented 79 H Neutrophils % (Manual) Band Neutrophils 4 % (Manual) Lymphocytes % Lymphocytes % 14 L (Manual) Monocytes % Eosinophils % Eosinophils % 1 (Manual) Basophils % Basophils % 1 (Manual) Promyelocytes % 1 H (Manual) Nucleated Red 1 H Blood Cells % Immature 0.540 H Granulocytes # Neutrophils # Neutrophils # 7.9 H (Manual) Band Neutrophils 0.4 # Lymphocytes 1.4 (Manual) Lymphocytes # Monocytes # Eosinophils # Basophils # Basophils # 0.1 H (Manual) Promyelocytes # 0.1 H Nucleated Red Blood Cells # Platelet Estimate NORMAL Polychromasia 3+ Poikilocytosis 1+ Anisocytosis 2+ Microcytosis 2+ Tear Drop Cells 1+ Phosphorus Level 3.5 # Magnesium Level 2.0 Medications Current Medications Norepinephrine 250 ml @ 1.875 mls/ hr TITRATE IV ; Start 01/16/19 at 22:00 Vancomycin HCl (Vanco Iv Per Pharmacy) VANCOMYCIN PER PHARMACY PER PROTOCOL XX ; Start 01/16/19 at 23:30 Albuterol (Ventolin Hfa) 4 puff Q2H RESP THERAPY PRN INH SHORTNESS OF BREATH; Start 01/17/19 at 00:00 Ipratropium [place] (Atrovent Hfa) 4 puff Q2H RESP THERAPY PRN INH SHORTNESS OF BREATH; Start 01/17/19 at 00:00 Acetaminophen (Tylenol Liquid) 650 mg Q6H PRN PO PAIN LEVEL 1-3 OR FEVER; Start 01/17/19 at 00:00 Propofol 100 ml @ 1.698 mls/ hr Q12H IV Last administered on 01/18/19at 04:47; Admin Dose 16.98 MLS/HR; Start 01/17/19 at 10:30 Diagnostic Test (Pha) (Accu-Chek) 1 ea 02 XX ; Start 01/18/19 at 02:00 Insulin Aspart (Novolog Insulin Pen) NOVOLOG *MILD* ALGORI... Q4 SC Last administered on 01/18/19at 05:38; Admin Dose 1 UNIT; Start 01/17/19 at 13:00 Miscellaneous Information 1 ea NOTE XX ; Start 01/17/19 at 11:00 Glucose (Glutose) 15 gm Q15M PRN PO DECREASED GLUCOSE; Start 01/17/19 at 11:00 Glucose (Glutose) 22.5 gm Q15M PRN PO DECREASED GLUCOSE; Start 01/17/19 at 11:00 Dextrose (D50w Syringe) 25 ml Q15M PRN IV DECREASED GLUCOSE; Start 01/17/19 at 11:00 Dextrose (D50w Syringe) 50 ml Q15M PRN IV DECREASED GLUCOSE; Start 01/17/19 at 11:00 Glucagon (Glucagen) 1 mg Q15M PRN IM DECREASED GLUCOSE; Start 01/17/19 at 11:00 Glucose (Glutose) 15 gm Q15M PRN BUCCAL DECREASED GLUCOSE; Start 01/17/19 at 11:00 Sodium Chloride 1,000 ml @ 100 mls/hr Q10H IV Last administered on 01/18/19at 05:39; Admin Dose 100 MLS/HR; Start 01/17/19 at 11:00 Famotidine (Pepcid Iv) 20 mg DAILY IV Last administered on 01/18/19at 09:05; Admin Dose 20 MG; Start 01/18/19 at 09:00 Collagenase (Santyl) 1 applic DAILY TOP Last administered on 01/18/19at 09:05; Admin Dose 1 APPLIC; Start 01/17/19 at 17:00 Fentanyl 100 ml @ 2.5 mls/hr TITRATE IV Last administered on 01/18/19at 07:38; Admin Dose 10 MLS/HR; Start 01/17/19 at 21:30 Piperacillin Sod/ Tazobactam Sod 50 ml @ 100 mls/hr Q6 IVPB ; Start 01/18/19 at 12:00 Potassium Chloride 50 ml @ 25 mls/hr Q2H IVPB Last administered on 01/18/19at 09:05; Admin Dose 25 MLS/HR; Start 01/18/19 at 08:00; Stop 01/18/19 at 13:59 Assessment/Plan Hospital Course (Demo Recall) IMPRESSION AND PLAN: 1. Severe anemia, questionable ongoing chronic bleeding. 2. Marked metabolic acidosis. 3. Severe sepsis. Perforated viscus. Status post acute abdomen 4. Encephalopathy, toxic metabolic. 5. History of paraplegia per chart. 6. Renal failure, likely prerenal. 7. Non-ST elevation myocardial infarction, likely secondary to hypoperfusion. 8. Hypo-kalemia Plan 1. Continued vent support. CPAP trial this morning 2. Transfusion of packed red blood cells. Keep hemoglobin greater than 7 3. Broad-spectrum antibiotics. 4. Gastrointestinal evaluation for colonoscopy, endoscopy. 5. Perforated viscus patient currently stable no plan for surgery at present. 6. DVT and GI prophylaxis. HIWOT ODELL MD, [facility] Jan 18, 2019 09:11
--- NOTE | 2019-01-18 09:55 | CONS ---
Consult Date/Type/Reason Admit Date/Time Jan 16, 2019 at 23:33 Initial Consult Date 01/17/19 Type of Consultation: cv Requesting Provider: NINA HOLT Date/Time of Note DATE: 01/18/19 TIME: 09:44 Subjective Interventional cardiology follow-up progress note/ Subjective: Discussed with the staff and physician. Telemetry was reviewed. Patient remains intubated in the ICU patient appears to be more awake today and is able to respond. Appears to be in pain but could not specify exactly where Discussed with patient daughter at the bedside. Objective: General: Intubated on the vent HEENT: NC/AT. Eyes are closed NECK: no stridor. CV: RRR. systolic murmur; no gallop or rubs. PULM: no wheezing + rhonchi. GI: Distended.+ Tender to palpation Extremity: trace B/L LE edema. no clubbing. neuro: Awake. Follows basic commands Psych: calm rectal: deferred : status post Valadez catheter in place . EKG normal sinus rhythm poor R wave progression consistent with possible anterior infarct. ST-T wave abnormality suggestive of inferolateral ischemia Echocardiogram done January 17 which was personally reviewed shows: Lower limits of normal systolic function. Normal left ventricular cavity size. Mild concentric left ventricular hypertrophy. Ejection fraction is visually estimated at 45 %. Tissue Doppler/Mitral Doppler indices are consistent with impaired relaxation (Stage I diastolic dysfunction). These segments of the LV are hypokinetic apical anterior segment and apical septum. Mitral valve leaflets appear mildly thickened. Mild mitral annular calcification. Trace mitral regurgitation. Aortic valve Max velocity 2.28 m/sec. Max PG 21.00 mmHg. Mean PG 10.00 mmHg. Aortic sclerosis without significant stenosis. Trace aortic valve regurgitation. Normal appearance of the tricuspid valve. Estimated peak PA systolic pressure 79 mmHg. There is moderate tricuspid regurgitation. Objective Vitals Vital Signs Date Temp Pulse Resp B/P (MAP) Pulse Ox O2 O2 Flow FiO2 Time Delivery Rate 01/18/19 69 20 101/60 100 Mechanical 07:00 (74) Ventilator 01/18/19 40 04:36 01/18/19 98.5 04:00 Intake and Output 01/17/19 01/17/19 01/18/19 1515:00 23:00 07:00 IntakeIntake Total 953.002 ml 889.568 ml 152.5 ml OutputOutput Total 458 ml 460 ml 425 ml BalanceBalance 495.002 ml 429.568 ml -272.5 ml Results/Medications Result Diagram: 01/18/19 0601/18/19 06 Results 24 hrs Laboratory Tests Test 01/17/19 10:47 01/17/19 12:31 01/17/19 16:53 01/17/19 16:55 White Blood Count 14.0 H 13.1 H Red Blood Count 2.85 #L 2.70 L Hemoglobin 8.1 #L 7.9 L Hematocrit 24.7 #L 23.3 L Mean Corpuscular 86.7 86.3 Volume Mean Corpuscular 28.4 L 29.3 Hemoglobin Mean Corpuscular 32.8 33.9 Hemoglobin Concen t Red Cell 14.9 H 15.3 H Distribution Width Platelet Count 246 # 208 Mean Platelet 8.8 8.9 Volume Immature 7.100 H 4.800 H Granulocytes % Neutrophils % Lymphocytes % Monocytes % Eosinophils % Basophils % Nucleated Red 0.4 H 0.5 H Blood Cells % Immature 0.990 H 0.630 H Granulocytes # Neutrophils # Lymphocytes # Monocytes # Eosinophils # Basophils # Nucleated Red Blood Cells # Sodium Level 142 Potassium Level 2.8 *L Chloride Level 102 Carbon Dioxide 20 L Level Anion Gap 20 H Blood Urea 93 H Nitrogen Creatinine 2.87 H Est Glomerular 17 L Filtrat Rate mL/min Glucose Level 148 # Lactic Acid Level 1.5 0.9 Calcium Level 6.6 L Creatine Kinase 303 H 221 H Creatine Kinase 4.3 3.8 Index Creatinine Kinase 12.90 H 8.33 H MB (Mass) Troponin I 4.280 *H 4.450 *H Bedside Glucose 156 Segmented 75 Neutrophils % (Manual) Band Neutrophils 11 H % (Manual) Lymphocytes % 12 L (Manual) Myelocytes % 2 H (Manual) Neutrophils # 10.0 H (Manual) Band Neutrophils 1.4 H # Lymphocytes 1.5 (Manual) Myelocytes # 0.2 H Platelet Estimate NORMAL Polychromasia 1+ Poikilocytosis 1+ Anisocytosis 2+ Microcytosis 1+ Ovalocytes 1+ Prothrombin Time 17.7 #H Prothrombin Time 1.4 Ratio INR International 1.45 Normalized Ratio Activated 27.1 Partial Thrombopl ast Time Test 01/17/19 17:17 01/17/19 22:02 01/18/19 01:21 01/18/19 04:51 Bedside Glucose 153 129 164 Lab Scanned BLOOD TRANSFUSIO Report N Test 01/18/19 05:26 01/18/19 05:34 01/18/19 06:23 01/18/19 06:27 Prothrombin Time 18.5 H Prothrombin Time 1.4 Ratio INR International 1.53 Normalized Ratio Activated 27.2 Partial Thrombopl ast Time Sodium Level 145 H 146 H Potassium Level 2.9 *L 2.7 *L Chloride Level 115 H 113 H Carbon Dioxide 18 L 18 L Level Anion Gap 12 # 15 H Blood Urea 82 H 81 H Nitrogen Creatinine 2.53 H 2.46 H Est Glomerular 20 L 20 L Filtrat Rate mL/min Glucose Level 119 119 Calcium Level 7.3 L 7.3 L Total Bilirubin 0.0 L Direct Bilirubin 0.00 Indirect 0.0 Bilirubin Aspartate Amino 322 H Transf (AST/SGOT) Alanine 147 H Aminotransferase (ALT/SGPT) Alkaline 180 H Phosphatase Total Protein 4.9 L Albumin 2.2 L Globulin 2.70 Albumin/Globulin 0.81 Ratio Cholesterol Level 85 L Lipase 1234 H Random Vancomycin 8.7 Level Hepatitis B NEGATIVE Surface Antigen Hepatitis B Core NEGATIVE Total Antibody Hepatitis C NEGATIVE Antibody HIV (1&2) NEGATIVE Antibody Bedside Glucose 165 White Blood Count 10.0 # Red Blood Count 2.40 L Hemoglobin 7.0 L Hematocrit 20.7 L Mean Corpuscular 86.3 Volume Mean Corpuscular 29.2 Hemoglobin Mean Corpuscular 33.8 Hemoglobin Concen t Red Cell 15.9 H Distribution Width Platelet Count 150 # Mean Platelet 9.2 Volume Immature 5.400 H Granulocytes % Neutrophils % Segmented 79 H Neutrophils % (Manual) Band Neutrophils 4 % (Manual) Lymphocytes % Lymphocytes % 14 L (Manual) Monocytes % Eosinophils % Eosinophils % 1 (Manual) Basophils % Basophils % 1 (Manual) Promyelocytes % 1 H (Manual) Nucleated Red 1 H Blood Cells % Immature 0.540 H Granulocytes # Neutrophils # Neutrophils # 7.9 H (Manual) Band Neutrophils 0.4 # Lymphocytes 1.4 (Manual) Lymphocytes # Monocytes # Eosinophils # Basophils # Basophils # 0.1 H (Manual) Promyelocytes # 0.1 H Nucleated Red Blood Cells # Platelet Estimate NORMAL Polychromasia 3+ Poikilocytosis 1+ Anisocytosis 2+ Microcytosis 2+ Tear Drop Cells 1+ Phosphorus Level 3.5 # Magnesium Level 2.0 Test 01/18/19 09:14 Bedside Glucose 158 Medications Current Medications Norepinephrine 250 ml @ 1.875 mls/ hr TITRATE IV ; Start 01/16/19 at 22:00 Vancomycin HCl (Vanco Iv Per Pharmacy) VANCOMYCIN PER PHARMACY PER PROTOCOL XX ; Start 01/16/19 at 23:30 Albuterol (Ventolin Hfa) 4 puff Q2H RESP THERAPY PRN INH SHORTNESS OF BREATH; Start 01/17/19 at 00:00 Ipratropium [place] (Atrovent Hfa) 4 puff Q2H RESP THERAPY PRN INH SHORTNESS OF BREATH; Start 01/17/19 at 00:00 Acetaminophen (Tylenol Liquid) 650 mg Q6H PRN PO PAIN LEVEL 1-3 OR FEVER; Start 01/17/19 at 00:00 Propofol 100 ml @ 1.698 mls/ hr Q12H IV Last administered on 01/18/19at 04:47; Admin Dose 16.98 MLS/HR; Start 01/17/19 at 10:30 Diagnostic Test (Pha) (Accu-Chek) 1 ea 02 XX ; Start 01/18/19 at 02:00 Insulin Aspart (Novolog Insulin Pen) NOVOLOG *MILD* ALGORI... Q4 SC Last administered on 01/18/19at 09:31; Admin Dose 1 UNIT; Start 01/17/19 at 13:00 Miscellaneous Information 1 ea NOTE XX ; Start 01/17/19 at 11:00 Glucose (Glutose) 15 gm Q15M PRN PO DECREASED GLUCOSE; Start 01/17/19 at 11:00 Glucose (Glutose) 22.5 gm Q15M PRN PO DECREASED GLUCOSE; Start 01/17/19 at 11:00 Dextrose (D50w Syringe) 25 ml Q15M PRN IV DECREASED GLUCOSE; Start 01/17/19 at 11:00 Dextrose (D50w Syringe) 50 ml Q15M PRN IV DECREASED GLUCOSE; Start 01/17/19 at 11:00 Glucagon (Glucagen) 1 mg Q15M PRN IM DECREASED GLUCOSE; Start 01/17/19 at 11:00 Glucose (Glutose) 15 gm Q15M PRN BUCCAL DECREASED GLUCOSE; Start 01/17/19 at 11:00 Sodium Chloride 1,000 ml @ 100 mls/hr Q10H IV Last administered on 01/18/19 05:39; Admin Dose 100 MLS/HR; Start 01/17/19 at 11:00 Famotidine (Pepcid Iv) 20 mg DAILY IV Last administered on 01/18/19 09:05; Admin Dose 20 MG; Start 01/18/19 at 09:00 Collagenase (Santyl) 1 applic DAILY TOP Last administered on 01/18/19 09:05; Admin Dose 1 APPLIC; Start 01/17/19 at 17:00 Fentanyl 100 ml @ 2.5 mls/hr TITRATE IV Last administered on 01/18/19 07:38; Admin Dose 10 MLS/HR; Start 01/17/19 at 21:30 Piperacillin Sod/ Tazobactam Sod 50 ml @ 100 mls/hr Q6 IVPB ; Start 01/18/19 at 12:00 Potassium Chloride 50 ml @ 25 mls/hr Q2H IVPB Last administered on 01/18/19 09:05; Admin Dose 25 MLS/HR; Start 01/18/19 at 08:00; Stop 01/18/19 at 13:59 Assessment/Plan Hospital Course (Demo Recall) 1. Non-ST elevation myocardial infarction: At this point is unclear type I or type II 2. Shock multifactorial mostly septic 3. Severe sepsis 4. Severe anemia status post transfusions 5. Perforated viscus 6. Lactic acidosis 7. Renal failure probably acute 8. Cardiomyopathy 9. Incomplete data 10. Hypoxic respiratory failure status post intubation underwent 11. hypo K Recommendations: Follow with multiple alliance consultant recommendations. Continue with supportive care. Beta-calvin if blood pressure allows however her blood pressure has been borderline Unable to give aspirin given her severe anemia Continue with vent support respiratory care Follow-up with general surgery recommendation. Patient most likely will need exploratory laparotomy. Obviously because of her multiple comorbidities she would be at high risk of cardiovascular event but no further cardiac workup would be indicated or beneficial to the patient. Continue with ICU care. More than 35 minutes of critical care time was for management treatment is critically ill patient excluding any procedures Thank you for his referral. We will continue to follow along with you. EMILY LARA MD [facility] EMILY LARA MD Jan 18, 2019 09:55
[2019-01-18] MEDS ORDERED: MAGNESIUM SULFATE 2 GM/50 ML 50 ML IVPB ONE (10:00)
[2019-01-18] MEDS ORDERED: VANCOMYCIN 1 GM 250 ML IVPB SCH (13:00)
--- NOTE | 2019-01-18 14:25 | PN ---
Date/Time of Note Date/Time of Note DATE: 01/18/19 TIME: 13:24 Assessment/Plan VTE Prophylaxis Risk score (from Ns)>0 risk: 9 SCD applied (from Ns): No SCD contraindicated: other (scds) Pharmacological prophylaxis: other (scds) Lines/Catheters IV Catheter Type (from [facility]): Central Line Central line still needed: Yes (meds) Urinary Cath still in place: Yes Reason Cath still needed: other (indicate) (monitor output) Assessment/Plan Hospital Course Summary Assessment and Plan: Assessment: Profound leukocytosis- resolved Bacteremia UTI- E.coli Profound macrocytic anemia-improving with blood transfusion Coagulopathy Pneumoperitoneum compatible with a perforated hollow viscus Abnormal urinary bladder with a Valadez catheter and gas both within the bladder and the bladder wall 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 Continue to monitor labs and transfuse as needed No BM as of yet- Stool OB pending Follow up on surgical recommendations ABX per ID Patient seen in collaboration with Dr. Rosenthal Subjective: Course reviewed with nursing staff Patient interviewed and examined All labs, imaging and other results reviewed The patient remains intubated and sedation in critical condition Daughter at bedside. Continue supportive care and close observation PHYSICAL EXAMINATION: GENERAL: Ill appearing, intubated, sedated SKIN: decubitus wounds EYES: Pupils sluggish EARS/NOSE AND THROAT: Ears normal, nose normal, Intubated NECK: Supple, no masses. CHEST: Inspection within normal limits. CARDIOVASCULAR: Heart: Regular rate and rhythm RESPIRATORY: Coarse GASTROINTESTINAL AND LIVER: Abdomen: Soft, non-distended, no hernias, hypoactive/absent bowel sounds. Rectal: Deferred. : f/c in place, query fecal content EXTREMITIES: No cyanosis, clubbing or edema. Result Diagram: 01/18/19 0623 01/18/19 0627 Results 24hrs Laboratory Tests Test 01/17/19 16:53 01/17/19 16:55 01/17/19 17:17 01/17/19 22:02 White Blood Count 13.1 H Red Blood Count 2.70 L Hemoglobin 7.9 L Hematocrit 23.3 L Mean Corpuscular 86.3 Volume Mean Corpuscular 29.3 Hemoglobin Mean Corpuscular 33.9 Hemoglobin Concen t Red Cell 15.3 H Distribution Width Platelet Count 208 Mean Platelet 8.9 Volume Immature 4.800 H Granulocytes % Neutrophils % Segmented 75 Neutrophils % (Manual) Band Neutrophils 11 H % (Manual) Lymphocytes % Lymphocytes % 12 L (Manual) Monocytes % Eosinophils % Basophils % Myelocytes % 2 H (Manual) Nucleated Red 0.5 H Blood Cells % Immature 0.630 H Granulocytes # Neutrophils # Neutrophils # 10.0 H (Manual) Band Neutrophils 1.4 H # Lymphocytes 1.5 (Manual) Lymphocytes # Monocytes # Eosinophils # Basophils # Myelocytes # 0.2 H Nucleated Red Blood Cells # Platelet Estimate NORMAL Polychromasia 1+ Poikilocytosis 1+ Anisocytosis 2+ Microcytosis 1+ Ovalocytes 1+ Prothrombin Time 17.7 #H Prothrombin Time 1.4 Ratio INR International 1.45 Normalized Ratio Activated 27.1 Partial Thrombopl ast Time Lactic Acid Level 0.9 Creatine Kinase 221 H Creatine Kinase 3.8 Index Creatinine Kinase 8.33 H MB (Mass) Troponin I 4.450 *H Bedside Glucose 153 129 Test 01/18/19 01:21 01/18/19 04:51 01/18/19 05:26 01/18/19 05:34 Bedside Glucose 164 165 Lab Scanned BLOOD TRANSFUSIO Report N Prothrombin Time 18.5 H Prothrombin Time 1.4 Ratio INR International 1.53 Normalized Ratio Activated 27.2 Partial Thrombopl ast Time Sodium Level 145 H Potassium Level 2.9 *L Chloride Level 115 H Carbon Dioxide 18 L Level Anion Gap 12 # Blood Urea 82 H Nitrogen Creatinine 2.53 H Est Glomerular 20 L Filtrat Rate mL/min Glucose Level 119 Calcium Level 7.3 L Total Bilirubin 0.0 L Direct Bilirubin 0.00 Indirect 0.0 Bilirubin Aspartate Amino 322 H Transf (AST/SGOT) Alanine 147 H Aminotransferase (ALT/SGPT) Alkaline 180 H Phosphatase Total Protein 4.9 L Albumin 2.2 L Globulin 2.70 Albumin/Globulin 0.81 Ratio Cholesterol Level 85 L Lipase 1234 H Random Vancomycin 8.7 Level Hepatitis B NEGATIVE Surface Antigen Hepatitis B Core NEGATIVE Total Antibody Hepatitis C NEGATIVE Antibody HIV (1&2) NEGATIVE Antibody Test 01/18/19 06:23 01/18/19 06:27 01/18/19 09:14 01/18/19 12:21 White Blood Count 10.0 # Red Blood Count 2.40 L Hemoglobin 7.0 L Hematocrit 20.7 L Mean Corpuscular 86.3 Volume Mean Corpuscular 29.2 Hemoglobin Mean Corpuscular 33.8 Hemoglobin Concen t Red Cell 15.9 H Distribution Width Platelet Count 150 # Mean Platelet 9.2 Volume Immature 5.400 H Granulocytes % Neutrophils % Segmented 79 H Neutrophils % (Manual) Band Neutrophils 4 % (Manual) Lymphocytes % Lymphocytes % 14 L (Manual) Monocytes % Eosinophils % Eosinophils % 1 (Manual) Basophils % Basophils % 1 (Manual) Promyelocytes % 1 H (Manual) Nucleated Red 1 H Blood Cells % Immature 0.540 H Granulocytes # Neutrophils # Neutrophils # 7.9 H (Manual) Band Neutrophils 0.4 # Lymphocytes 1.4 (Manual) Lymphocytes # Monocytes # Eosinophils # Basophils # Basophils # 0.1 H (Manual) Promyelocytes # 0.1 H Nucleated Red Blood Cells # Platelet Estimate NORMAL Polychromasia 3+ Poikilocytosis 1+ Anisocytosis 2+ Microcytosis 2+ Tear Drop Cells 1+ Sodium Level 146 H Potassium Level 2.7 *L Chloride Level 113 H Carbon Dioxide 18 L Level Anion Gap 15 H Blood Urea 81 H Nitrogen Creatinine 2.46 H Est Glomerular 20 L Filtrat Rate mL/min Glucose Level 119 Calcium Level 7.3 L Phosphorus Level 3.5 # Magnesium Level 2.0 Bedside Glucose 158 164 Exam/Review of Systems Exam Vitals Vital Signs Date Temp Pulse Resp B/P (MAP) Pulse Ox O2 O2 Flow FiO2 Time Delivery Rate 01/18/19 73 12:00 01/18/19 98.4 20 104/59 100 Mechanical 12:00 (74) Ventilator 01/18/19 40 11:10 Intake and Output 01/17/19 01/17/19 01/18/19 1515:00 23:00 07:00 IntakeIntake Total 953.002 ml 889.568 ml 152.5 ml OutputOutput Total 458 ml 460 ml 425 ml BalanceBalance 495.002 ml 429.568 ml -272.5 ml Results Results 24hrs Laboratory Tests Test 01/17/19 16:53 01/17/19 16:55 01/17/19 17:17 01/17/19 22:02 White Blood Count 13.1 H Red Blood Count 2.70 L Hemoglobin 7.9 L Hematocrit 23.3 L Mean Corpuscular 86.3 Volume Mean Corpuscular 29.3 Hemoglobin Mean Corpuscular 33.9 Hemoglobin Concen t Red Cell 15.3 H Distribution Width Platelet Count 208 Mean Platelet 8.9 Volume Immature 4.800 H Granulocytes % Neutrophils % Segmented 75 Neutrophils % (Manual) Band Neutrophils 11 H % (Manual) Lymphocytes % Lymphocytes % 12 L (Manual) Monocytes % Eosinophils % Basophils % Myelocytes % 2 H (Manual) Nucleated Red 0.5 H Blood Cells % Immature 0.630 H Granulocytes # Neutrophils # Neutrophils # 10.0 H (Manual) Band Neutrophils 1.4 H # Lymphocytes 1.5 (Manual) Lymphocytes # Monocytes # Eosinophils # Basophils # Myelocytes # 0.2 H Nucleated Red Blood Cells # Platelet Estimate NORMAL Polychromasia 1+ Poikilocytosis 1+ Anisocytosis 2+ Microcytosis 1+ Ovalocytes 1+ Prothrombin Time 17.7 #H Prothrombin Time 1.4 Ratio INR International 1.45 Normalized Ratio Activated 27.1 Partial Thrombopl ast Time Lactic Acid Level 0.9 Creatine Kinase 221 H Creatine Kinase 3.8 Index Creatinine Kinase 8.33 H MB (Mass) Troponin I 4.450 *H Bedside Glucose 153 129 Test 01/18/19 01:21 01/18/19 04:51 01/18/19 05:26 01/18/19 05:34 Bedside Glucose 164 165 Lab Scanned BLOOD TRANSFUSIO Report N Prothrombin Time 18.5 H Prothrombin Time 1.4 Ratio INR International 1.53 Normalized Ratio Activated 27.2 Partial Thrombopl ast Time Sodium Level 145 H Potassium Level 2.9 *L Chloride Level 115 H Carbon Dioxide 18 L Level Anion Gap 12 # Blood Urea 82 H Nitrogen Creatinine 2.53 H Est Glomerular 20 L Filtrat Rate mL/min Glucose Level 119 Calcium Level 7.3 L Total Bilirubin 0.0 L Direct Bilirubin 0.00 Indirect 0.0 Bilirubin Aspartate Amino 322 H Transf (AST/SGOT) Alanine 147 H Aminotransferase (ALT/SGPT) Alkaline 180 H Phosphatase Total Protein 4.9 L Albumin 2.2 L Globulin 2.70 Albumin/Globulin 0.81 Ratio Cholesterol Level 85 L Lipase 1234 H Random Vancomycin 8.7 Level Hepatitis B NEGATIVE Surface Antigen Hepatitis B Core NEGATIVE Total Antibody Hepatitis C NEGATIVE Antibody HIV (1&2) NEGATIVE Antibody Test 01/18/19 06:23 01/18/19 06:27 01/18/19 09:14 01/18/19 12:21 White Blood Count 10.0 # Red Blood Count 2.40 L Hemoglobin 7.0 L Hematocrit 20.7 L Mean Corpuscular 86.3 Volume Mean Corpuscular 29.2 Hemoglobin Mean Corpuscular 33.8 Hemoglobin Concen t Red Cell 15.9 H Distribution Width Platelet Count 150 # Mean Platelet 9.2 Volume Immature 5.400 H Granulocytes % Neutrophils % Segmented 79 H Neutrophils % (Manual) Band Neutrophils 4 % (Manual) Lymphocytes % Lymphocytes % 14 L (Manual) Monocytes % Eosinophils % Eosinophils % 1 (Manual) Basophils % Basophils % 1 (Manual) Promyelocytes % 1 H (Manual) Nucleated Red 1 H Blood Cells % Immature 0.540 H Granulocytes # Neutrophils # Neutrophils # 7.9 H (Manual) Band Neutrophils 0.4 # Lymphocytes 1.4 (Manual) Lymphocytes # Monocytes # Eosinophils # Basophils # Basophils # 0.1 H (Manual) Promyelocytes # 0.1 H Nucleated Red Blood Cells # Platelet Estimate NORMAL Polychromasia 3+ Poikilocytosis 1+ Anisocytosis 2+ Microcytosis 2+ Tear Drop Cells 1+ Sodium Level 146 H Potassium Level 2.7 *L Chloride Level 113 H Carbon Dioxide 18 L Level Anion Gap 15 H Blood Urea 81 H Nitrogen Creatinine 2.46 H Est Glomerular 20 L Filtrat Rate mL/min Glucose Level 119 Calcium Level 7.3 L Phosphorus Level 3.5 # Magnesium Level 2.0 Bedside Glucose 158 164 Medications Medication Current Medications Norepinephrine 250 ml @ 1.875 mls/ hr TITRATE IV ; Start 01/16/19 at 22:00 Vancomycin HCl (Vanco Iv Per Pharmacy) VANCOMYCIN PER PHARMACY PER PROTOCOL XX ; Start 01/16/19 at 23:30 Albuterol (Ventolin Hfa) 4 puff Q2H RESP THERAPY PRN INH SHORTNESS OF BREATH; Start 01/17/19 at 00:00 Ipratropium [place] (Atrovent Hfa) 4 puff Q2H RESP THERAPY PRN INH SHORTNESS OF BREATH; Start 01/17/19 at 00:00 Acetaminophen (Tylenol Liquid) 650 mg Q6H PRN PO PAIN LEVEL 1-3 OR FEVER; Start 01/17/19 at 00:00 Propofol 100 ml @ 1.698 mls/ hr Q12H IV Last administered on 01/18/19at 12:41; Admin Dose 15.282 MLS/HR; Start 01/17/19 at 10:30 Diagnostic Test (Pha) (Accu-Chek) 1 ea 02 XX ; Start 01/18/19 at 02:00 Insulin Aspart (Novolog Insulin Pen) NOVOLOG *MILD* ALGORI... Q4 SC Last a dministered on 01/18/19at 12:32; Admin Dose 1 UNIT; Start 01/17/19 at 13:00 Miscellaneous Information 1 ea NOTE XX ; Start 01/17/19 at 11:00 Glucose (Glutose) 15 gm Q15M PRN PO DECREASED GLUCOSE; Start 01/17/19 at 11:00 Glucose (Glutose) 22.5 gm Q15M PRN PO DECREASED GLUCOSE; Start 01/17/19 at 11:0 0 Dextrose (D50w Syringe) 25 ml Q15M PRN IV DECREASED GLUCOSE; Start 01/17/19 at 11:00 Dextrose (D50w Syringe) 50 ml Q15M PRN IV DECREASED GLUCOSE; Start 01/17/19 at 11:00 Glucagon (Glucagen) 1 mg Q15M PRN IM DECREASED GLUCOSE; Start 01/17/19 at 11:00 Glucose (Glutose) 15 gm Q15M PRN BUCCAL DECREASED GLUCOSE; Start 01/17/19 at 11:00 Sodium Chloride 1,000 ml @ 100 mls/hr Q10H IV Last administered on 01/18/19at 05:39; Admin Dose 100 MLS/HR; Start 01/17/19 at 11:00 Famotidine (Pepcid Iv) 20 mg DAILY IV Last administered on 01/18/19at 09:05; Admin Dose 20 MG; Start 01/18/19 at 09:00 Collagenase (Santyl) 1 applic DAILY TOP Last administered on 01/18/19at 09:05; Admin Dose 1 APPLIC; Start 01/17/19 at 17:00 Fentanyl 100 ml @ 2.5 mls/hr TITRATE IV Last administered on 01/18/19at 07:38; Admin Dose 10 MLS/HR; Start 3/25/19 at 21:30 Piperacillin Sod/ Tazobactam Sod 50 ml @ 100 mls/hr Q6 IVPB Last administered on 01/18/19at 11:54; Admin Dose 100 MLS/HR; Start 01/18/19 at 12:00 Potassium Chloride 50 ml @ 25 mls/hr Q2H IVPB Last administered on 01/18/19at 12:38; Admin Dose 25 MLS/HR; Start 01/18/19 at 08:00; Stop 01/18/19 at 13:59 Vancomycin HCl 250 ml @ 125 mls/hr 1300 IVPB ; Start 01/18/19 at 13:00; Stop 01/18/19 at 19:00 DAGO STEARNS Jan 18, 2019 14:25
--- NOTE | 2019-01-18 15:13 | PN ---
Date/Time of Note Date/Time of Note DATE: 01/18/19 TIME: 15:04 Assessment/Plan VTE Prophylaxis Risk score (from [facility])>0 risk: 9 SCD applied (from [facility]): Yes Pharmacological prophylaxis: NA/contraindicated Pharm contraindication: blood coag disorder Assessment/Plan Hospital Course 1. Septic shock: Secondary to pneumoperitoneum, UTI, infected wound versus other Broad-spectrum antibiotics of vancomycin and Zosyn Trend lactic acid levels ID consultation appreciated CT abdomen does show pneumoperitoneum compatible with a perforated hollow viscus, etiology is uncertain, abnormal urinary bladder with possible emphysematous cystitis and possible fistula with, Abscess anterior to the bladder is also possible Surgery consultation appreciated, patient is too unstable for surgery at this time Urology consultation appreciated 2. Acute respiratory failure secondary to above Pulmonology managing vent, unable to wean off vent today 3. Hypokalemia Replete 4. Macrocytic anemia secondary to elevated reticulocyte count Status post 4 units of packed red blood cells 5. Severe leukocytosis-improved 6. Thrombocytosis-resolved Monitor 7. Acute kidney injury secondary to severe septic shock-improving Continue IV fluids Nephrology consultation appreciated 8. Non-STEMI likely type II secondary to severe sepsis Cardiac consultation appreciated 9. Coagulopathy secondary to DIC Prophylaxis: SCDs, Protonix Result Diagram: 01/18/19 0623 01/18/19 0627 Results 24hrs Laboratory Tests Test 01/17/19 16:53 01/17/19 16:55 01/17/19 17:17 01/17/19 22:02 White Blood Count 13.1 H Red Blood Count 2.70 L Hemoglobin 7.9 L Hematocrit 23.3 L Mean Corpuscular 86.3 Volume Mean Corpuscular 29.3 Hemoglobin Mean Corpuscular 33.9 Hemoglobin Concen t Red Cell 15.3 H Distribution Width Platelet Count 208 Mean Platelet 8.9 Volume Immature 4.800 H Granulocytes % Neutrophils % Segmented 75 Neutrophils % (Manual) Band Neutrophils 11 H % (Manual) Lymphocytes % Lymphocytes % 12 L (Manual) Monocytes % Eosinophils % Basophils % Myelocytes % 2 H (Manual) Nucleated Red 0.5 H Blood Cells % Immature 0.630 H Granulocytes # Neutrophils # Neutrophils # 10.0 H (Manual) Band Neutrophils 1.4 H # Lymphocytes 1.5 (Manual) Lymphocytes # Monocytes # Eosinophils # Basophils # Myelocytes # 0.2 H Nucleated Red Blood Cells # Platelet Estimate NORMAL Polychromasia 1+ Poikilocytosis 1+ Anisocytosis 2+ Microcytosis 1+ Ovalocytes 1+ Prothrombin Time 17.7 #H Prothrombin Time 1.4 Ratio INR International 1.45 Normalized Ratio Activated 27.1 Partial Thrombopl ast Time Lactic Acid Level 0.9 Creatine Kinase 221 H Creatine Kinase 3.8 Index Creatinine Kinase 8.33 H MB (Mass) Troponin I 4.450 *H Bedside Glucose 153 129 Test 01/18/19 01:21 01/18/19 04:51 01/18/19 05:26 01/18/19 05:34 Bedside Glucose 164 165 Lab Scanned BLOOD TRANSFUSIO Report N Prothrombin Time 18.5 H Prothrombin Time 1.4 Ratio INR International 1.53 Normalized Ratio Activated 27.2 Partial Thrombopl ast Time Sodium Level 145 H Potassium Level 2.9 *L Chloride Level 115 H Carbon Dioxide 18 L Level Anion Gap 12 # Blood Urea 82 H Nitrogen Creatinine 2.53 H Est Glomerular 20 L Filtrat Rate mL/min Glucose Level 119 Calcium Level 7.3 L Total Bilirubin 0.0 L Direct Bilirubin 0.00 Indirect 0.0 Bilirubin Aspartate Amino 322 H Transf (AST/SGOT) Alanine 147 H Aminotransferase (ALT/SGPT) Alkaline 180 H Phosphatase Total Protein 4.9 L Albumin 2.2 L Globulin 2.70 Albumin/Globulin 0.81 Ratio Cholesterol Level 85 L Lipase 1234 H Random Vancomycin 8.7 Level Hepatitis B NEGATIVE Surface Antigen Hepatitis B Core NEGATIVE Total Antibody Hepatitis C NEGATIVE Antibody HIV (1&2) NEGATIVE Antibody Test 01/18/19 06:23 01/18/19 06:27 01/18/19 09:14 01/18/19 12:21 White Blood Count 10.0 # Red Blood Count 2.40 L Hemoglobin 7.0 L Hematocrit 20.7 L Mean Corpuscular 86.3 Volume Mean Corpuscular 29.2 Hemoglobin Mean Corpuscular 33.8 Hemoglobin Concen t Red Cell 15.9 H Distribution Width Platelet Count 150 # Mean Platelet 9.2 Volume Immature 5.400 H Granulocytes % Neutrophils % Segmented 79 H Neutrophils % (Manual) Band Neutrophils 4 % (Manual) Lymphocytes % Lymphocytes % 14 L (Manual) Monocytes % Eosinophils % Eosinophils % 1 (Manual) Basophils % Basophils % 1 (Manual) Promyelocytes % 1 H (Manual) Nucleated Red 1 H Blood Cells % Immature 0.540 H Granulocytes # Neutrophils # Neutrophils # 7.9 H (Manual) Band Neutrophils 0.4 # Lymphocytes 1.4 (Manual) Lymphocytes # Monocytes # Eosinophils # Basophils # Basophils # 0.1 H (Manual) Promyelocytes # 0.1 H Nucleated Red Blood Cells # Platelet Estimate NORMAL Polychromasia 3+ Poikilocytosis 1+ Anisocytosis 2+ Microcytosis 2+ Tear Drop Cells 1+ Sodium Level 146 H Potassium Level 2.7 *L Chloride Level 113 H Carbon Dioxide 18 L Level Anion Gap 15 H Blood Urea 81 H Nitrogen Creatinine 2.46 H Est Glomerular 20 L Filtrat Rate mL/min Glucose Level 119 Calcium Level 7.3 L Phosphorus Level 3.5 # Magnesium Level 2.0 Bedside Glucose 158 164 Subjective 24 Hr Interval Summary Subjective hx not possible: pt non-verbal Exam/Review of Systems Exam Vitals Vital Signs Date Temp Pulse Resp B/P (MAP) Pulse Ox O2 O2 Flow FiO2 Time Delivery Rate 01/18/19 73 20 100/63 100 Mechanical 14:00 (75) Ventilator 01/18/19 98.4 12:00 01/18/19 40 11:10 Intake and Output 01/17/19 01/17/19 01/18/19 1414:59 22:59 06:59 IntakeIntake Total 912.002 ml 1039.568 ml OutputOutput Total 498 ml 445 ml 500 ml BalanceBalance 414.002 ml 594.568 ml -500 ml Constitutional: non-verbal ENMT: intubated Respiratory: clear to auscultation Cardiovascular: regular rate and rhythm Gastrointestinal: soft; No distended Musculoskeletal: nl extremities to inspection Results Results 24hrs Laboratory Tests Test 01/17/19 16:53 01/17/19 16:55 01/17/19 17:17 01/17/19 22:02 White Blood Count 13.1 H Red Blood Count 2.70 L Hemoglobin 7.9 L Hematocrit 23.3 L Mean Corpuscular 86.3 Volume Mean Corpuscular 29.3 Hemoglobin Mean Corpuscular 33.9 Hemoglobin Concen t Red Cell 15.3 H Distribution Width Platelet Count 208 Mean Platelet 8.9 Volume Immature 4.800 H Granulocytes % Neutrophils % Segmented 75 Neutrophils % (Manual) Band Neutrophils 11 H % (Manual) Lymphocytes % Lymphocytes % 12 L (Manual) Monocytes % Eosinophils % Basophils % Myelocytes % 2 H (Manual) Nucleated Red 0.5 H Blood Cells % Immature 0.630 H Granulocytes # Neutrophils # Neutrophils # 10.0 H (Manual) Band Neutrophils 1.4 H # Lymphocytes 1.5 (Manual) Lymphocytes # Monocytes # Eosinophils # Basophils # Myelocytes # 0.2 H Nucleated Red Blood Cells # Platelet Estimate NORMAL Polychromasia 1+ Poikilocytosis 1+ Anisocytosis 2+ Microcytosis 1+ Ovalocytes 1+ Prothrombin Time 17.7 #H Prothrombin Time 1.4 Ratio INR International 1.45 Normalized Ratio Activated 27.1 Partial Thrombopl ast Time Lactic Acid Level 0.9 Creatine Kinase 221 H Creatine Kinase 3.8 Index Creatinine Kinase 8.33 H MB (Mass) Troponin I 4.450 *H Bedside Glucose 153 129 Test 01/18/19 01:21 01/18/19 04:51 01/18/19 05:26 01/18/19 05:34 Bedside Glucose 164 165 Lab Scanned BLOOD TRANSFUSIO Report N Prothrombin Time 18.5 H Prothrombin Time 1.4 Ratio INR International 1.53 Normalized Ratio Activated 27.2 Partial Thrombopl ast Time Sodium Level 145 H Potassium Level 2.9 *L Chloride Level 115 H Carbon Dioxide 18 L Level Anion Gap 12 # Blood Urea 82 H Nitrogen Creatinine 2.53 H Est Glomerular 20 L Filtrat Rate mL/min Glucose Level 119 Calcium Level 7.3 L Total Bilirubin 0.0 L Direct Bilirubin 0.00 Indirect 0.0 Bilirubin Aspartate Amino 322 H Transf (AST/SGOT) Alanine 147 H Aminotransferase (ALT/SGPT) Alkaline 180 H Phosphatase Total Protein 4.9 L Albumin 2.2 L Globulin 2.70 Albumin/Globulin 0.81 Ratio Cholesterol Level 85 L Lipase 1234 H Random Vancomycin 8.7 Level Hepatitis B NEGATIVE Surface Antigen Hepatitis B Core NEGATIVE Total Antibody Hepatitis C NEGATIVE Antibody HIV (1&2) NEGATIVE Antibody Test 01/18/19 06:23 01/18/19 06:27 01/18/19 09:14 01/18/19 12:21 White Blood Count 10.0 # Red Blood Count 2.40 L Hemoglobin 7.0 L Hematocrit 20.7 L Mean Corpuscular 86.3 Volume Mean Corpuscular 29.2 Hemoglobin Mean Corpuscular 33.8 Hemoglobin Concen t Red Cell 15.9 H Distribution Width Platelet Count 150 # Mean Platelet 9.2 Volume Immature 5.400 H Granulocytes % Neutrophils % Segmented 79 H Neutrophils % (Manual) Band Neutrophils 4 % (Manual) Lymphocytes % Lymphocytes % 14 L (Manual) Monocytes % Eosinophils % Eosinophils % 1 (Manual) Basophils % Basophils % 1 (Manual) Promyelocytes % 1 H (Manual) Nucleated Red 1 H Blood Cells % Immature 0.540 H Granulocytes # Neutrophils # Neutrophils # 7.9 H (Manual) Band Neutrophils 0.4 # Lymphocytes 1.4 (Manual) Lymphocytes # Monocytes # Eosinophils # Basophils # Basophils # 0.1 H (Manual) Promyelocytes # 0.1 H Nucleated Red Blood Cells # Platelet Estimate NORMAL Polychromasia 3+ Poikilocytosis 1+ Anisocytosis 2+ Microcytosis 2+ Tear Drop Cells 1+ Sodium Level 146 H Potassium Level 2.7 *L Chloride Level 113 H Carbon Dioxide 18 L Level Anion Gap 15 H Blood Urea 81 H Nitrogen Creatinine 2.46 H Est Glomerular 20 L Filtrat Rate mL/min Glucose Level 119 Calcium Level 7.3 L Phosphorus Level 3.5 # Magnesium Level 2.0 Bedside Glucose 158 164 Medications Medication Current Medications Norepinephrine 250 ml @ 1.875 mls/ hr TITRATE IV ; Start 01/16/19 at 22:00 Vancomycin HCl (Vanco Iv Per Pharmacy) VANCOMYCIN PER PHARMACY PER PROTOCOL XX ; Start 01/16/19 at 23:30 Albuterol (Ventolin Hfa) 4 puff Q2H RESP THERAPY PRN INH SHORTNESS OF BREATH; Start 01/17/19 at 00:00 Ipratropium [place] (Atrovent Hfa) 4 puff Q2H RESP THERAPY PRN INH SHORTNESS OF BREATH; Start 01/17/19 at 00:00 Acetaminophen (Tylenol Liquid) 650 mg Q6H PRN PO PAIN LEVEL 1-3 OR FEVER; Start 01/17/19 at 00:00 Propofol 100 ml @ 1.698 mls/ hr Q12H IV Last administered on 01/18/19at 12:41; Admin Dose 15.282 MLS/HR; Start 01/17/19 at 10:30 Diagnostic Test (Pha) (Accu-Chek) 1 ea 02 XX ; Start 01/18/19 at 02:00 Insulin Aspart (Novolog Insulin Pen) NOVOLOG *MILD* ALGORI... Q4 SC Last administered on 01/18/19at 12:32; Admin Dose 1 UNIT; Start 01/17/19 at 13:00 Miscellaneous Information 1 ea NOTE XX ; Start 01/17/19 at 11:00 Glucose (Glutose) 15 gm Q15M PRN PO DECREASED GLUCOSE; Start 01/17/19 at 11:00 Glucose (Glutose) 22.5 gm Q15M PRN PO DECREASED GLUCOSE; Start 01/17/19 at 11:00 Dextrose (D50w Syringe) 25 ml Q15M PRN IV DECREASED GLUCOSE; Start 01/17/19 at 11:00 Dextrose (D50w Syringe) 50 ml Q15M PRN IV DECREASED GLUCOSE; Start 01/17/19 at 11:00 Glucagon (Glucagen) 1 mg Q15M PRN IM DECREASED GLUCOSE; Start 01/17/19 at 11:00 Glucose (Glutose) 15 gm Q15M PRN BUCCAL DECREASED GLUCOSE; Start 01/17/19 at 11:00 Sodium Chloride 1,000 ml @ 100 mls/hr Q10H IV Last administered on 01/18/19at 05:39; Admin Dose 100 MLS/HR; Start 01/17/19 at 11:00 Famotidine (Pepcid Iv) 20 mg DAILY IV Last administered on 01/18/19at 09:05; Admin Dose 20 MG; Start 01/18/19 at 09:00 Collagenase (Santyl) 1 applic DAILY TOP Last administered on 01/18/19at 09:05; Admin Dose 1 APPLIC; Start 01/17/19 at 17:00 Fentanyl 100 ml @ 2.5 mls/hr TITRATE IV Last administered on 01/18/19at 07:38; Admin Dose 10 MLS/HR; Start 01/17/19 at 21:30 Piperacillin Sod/ Tazobactam Sod 50 ml @ 100 mls/hr Q6 IVPB Last administered on 01/18/19at 11:54; Admin Dose 100 MLS/HR; Start 01/18/19 at 12:00 Vancomycin HCl 250 ml @ 125 mls/hr 1300 IVPB Last administered on 01/18/19at 14:27; Admin Dose 125 MLS/HR; Start 01/18/19 at 13:00; Stop 01/18/19 at 19:00 ALLISON WOLFF Jan 18, 2019 15:13
--- NOTE | 2019-01-18 19:11 | CONS ---
Consult Date/Type/Reason Admit Date/Time Jan 16, 2019 at 23:33 Initial Consult Date 01/17/19 Type of Consultation: Urology Reason for Consultation Urinary tract infection, possible colovesical fistula Requesting Provider: NINA HOLT Date/Time of Note DATE: 01/18/19 TIME: 19:03 Subjective Patient remains on a respirator. Objective Vitals Vital Signs Date Temp Pulse Resp B/P (MAP) Pulse Ox O2 O2 Flow FiO2 Time Delivery Rate 01/18/19 67 18 116/63 100 Mechanical 18:00 (80) Ventilator 01/18/19 40 17:30 01/18/19 98.1 16:00 Intake and Output 01/17/19 01/17/19 01/18/19 1515:00 23:00 07:00 IntakeIntake Total 953.002 ml 889.568 ml 152.5 ml OutputOutput Total 458 ml 460 ml 525 ml BalanceBalance 495.002 ml 429.568 ml -372.5 ml Exam May catheter is draining clear urine now. Her urine culture did show: URINE CULTURE Final Organism 1 ESCHERICHIA COLI COLONY COUNT >100,000 CFU/ml E COLI M.I.C. RX --------- --- AMIKACIN <=2 S AMPICILLIN >=32 R CEFAZOLIN <=4 S CEFOTAXIME S CIPROFLOXACIN >=4 R GENTAMICIN >=16 R LEVOFLOXACIN >=8 R NITROFURANTOIN 32 S TOBRAMYCIN 8 I TRIMETHOPRIM/SULFAMETHOXAZOLE <=20 S PIPERACILLIN/TAZOBACTAM <=4 S Results/Medications Result Diagram: 01/18/19 0623 01/18/19 1713 Results 24 hrs Laboratory Tests Test 01/17/19 22:02 01/18/19 01:21 01/18/19 04:51 01/18/19 05:26 Bedside Glucose 129 164 Lab Scanned BLOOD TRANSFUSIO Report N Prothrombin Time 18.5 H Prothrombin Time 1.4 Ratio INR International 1.53 Normalized Ratio Activated 27.2 Partial Thrombopl ast Time Sodium Level 145 H Potassium Level 2.9 *L Chloride Level 115 H Carbon Dioxide 18 L Level Anion Gap 12 # Blood Urea 82 H Nitrogen Creatinine 2.53 H Est Glomerular 20 L Filtrat Rate mL/min Glucose Level 119 Calcium Level 7.3 L Total Bilirubin 0.0 L Direct Bilirubin 0.00 Indirect 0.0 Bilirubin Aspartate Amino 322 H Transf (AST/SGOT) Alanine 147 H Aminotransferase (ALT/SGPT) Alkaline 180 H Phosphatase Total Protein 4.9 L Albumin 2.2 L Globulin 2.70 Albumin/Globulin 0.81 Ratio Cholesterol Level 85 L Lipase 1234 H Random Vancomycin 8.7 Level Hepatitis B NEGATIVE Surface Antigen Hepatitis B Core NEGATIVE Total Antibody Hepatitis C NEGATIVE Antibody HIV (1&2) NEGATIVE Antibody Test 01/18/19 05:34 01/18/19 06:23 01/18/19 06:27 01/18/19 09:14 Bedside Glucose 165 158 White Blood Count 10.0 # Red Blood Count 2.40 L Hemoglobin 7.0 L Hematocrit 20.7 L Mean Corpuscular 86.3 Volume Mean Corpuscular 29.2 Hemoglobin Mean Corpuscular 33.8 Hemoglobin Concen t Red Cell 15.9 H Distribution Width Platelet Count 150 # Mean Platelet 9.2 Volume Immature 5.400 H Granulocytes % Neutrophils % Segmented 79 H Neutrophils % (Manual) Band Neutrophils 4 % (Manual) Lymphocytes % Lymphocytes % 14 L (Manual) Monocytes % Eosinophils % Eosinophils % 1 (Manual) Basophils % Basophils % 1 (Manual) Promyelocytes % 1 H (Manual) Nucleated Red 1 H Blood Cells % Immature 0.540 H Granulocytes # Neutrophils # Neutrophils # 7.9 H (Manual) Band Neutrophils 0.4 # Lymphocytes 1.4 (Manual) Lymphocytes # Monocytes # Eosinophils # Basophils # Basophils # 0.1 H (Manual) Promyelocytes # 0.1 H Nucleated Red Blood Cells # Platelet Estimate NORMAL Polychromasia 3+ Poikilocytosis 1+ Anisocytosis 2+ Microcytosis 2+ Tear Drop Cells 1+ Sodium Level 146 H Potassium Level 2.7 *L Chloride Level 113 H Carbon Dioxide 18 L Level Anion Gap 15 H Blood Urea 81 H Nitrogen Creatinine 2.46 H Est Glomerular 20 L Filtrat Rate mL/min Glucose Level 119 Calcium Level 7.3 L Phosphorus Level 3.5 # Magnesium Level 2.0 Test 01/18/19 12:21 01/18/19 16:34 01/18/19 17:13 Bedside Glucose 164 122 Prothrombin Time 16.8 H Prothrombin Time 1.3 Ratio INR International 1.35 Normalized Ratio Activated 25.6 Partial Thrombopl ast Time Sodium Level 147 H Potassium Level 3.2 L Chloride Level 119 H Carbon Dioxide 17 L Level Anion Gap 11 Blood Urea 72 H Nitrogen Creatinine 2.16 H Est Glomerular 23 L Filtrat Rate mL/min Glucose Level 99 Calcium Level 7.6 L Medications Current Medications Norepinephrine 250 ml @ 1.875 mls/ hr TITRATE IV ; Start 01/16/19 at 22:00 Vancomycin HCl (Vanco Iv Per Pharmacy) VANCOMYCIN PER PHARMACY PER PROTOCOL XX ; Start 01/16/19 at 23:30 Albuterol (Ventolin Hfa) 4 puff Q2H RESP THERAPY PRN INH SHORTNESS OF BREATH; Start 01/17/19 at 00:00 Ipratropium [place] (Atrovent Hfa) 4 puff Q2H RESP THERAPY PRN INH SHORTNESS OF BREATH; Start 01/17/19 at 00:00 Acetaminophen (Tylenol Liquid) 650 mg Q6H PRN PO PAIN LEVEL 1-3 OR FEVER; Start 01/17/19 at 00:00 Propofol 100 ml @ 1.698 mls/ hr Q12H IV Last administered on 01/18/19at 12:41; Admin Dose 15.282 MLS/HR; Start 01/17/19 at 10:30 Diagnostic Test (Pha) (Accu-Chek) 1 ea 02 XX ; Start 01/18/19 at 02:00 Insulin Aspart (Novolog Insulin Pen) NOVOLOG *MILD* ALGORI... Q4 SC Last administered on 01/18/19at 12:32; Admin Dose 1 UNIT; Start 01/17/19 at 13:00 Miscellaneous Information 1 ea NOTE XX ; Start 01/17/19 at 11:00 Glucose (Glutose) 15 gm Q15M PRN PO DECREASED GLUCOSE; Start 01/17/19 at 11:00 Glucose (Glutose) 22.5 gm Q15M PRN PO DECREASED GLUCOSE; Start 01/17/19 at 11:00 Dextrose (D50w Syringe) 25 ml Q15M PRN IV DECREASED GLUCOSE; Start 01/17/19 at 11:00 Dextrose (D50w Syringe) 50 ml Q15M PRN IV DECREASED GLUCOSE; Start 01/17/19 at 11:00 Glucagon (Glucagen) 1 mg Q15M PRN IM DECREASED GLUCOSE; Start 01/17/19 at 11:00 Glucose (Glutose) 15 gm Q15M PRN BUCCAL DECREASED GLUCOSE; Start 01/17/19 at 11:00 Sodium Chloride 1,000 ml @ 100 mls/hr Q10H IV Last administered on 01/18/19 16:35; Admin Dose 100 MLS/HR; Start 01/17/19 at 11:00 Famotidine (Pepcid Iv) 20 mg DAILY IV Last administered on 01/18/19 09:05; Admin Dose 20 MG; Start 01/18/19 at 09:00 Collagenase (Santyl) 1 applic DAILY TOP Last administered on 01/18/19 09:05; Admin Dose 1 APPLIC; Start 01/17/19 at 17:00 Fentanyl 100 ml @ 2.5 mls/hr TITRATE IV Last administered on 01/18/19 07:38; Admin Dose 10 MLS/HR; Start 01/17/19 at 21:30 Piperacillin Sod/ Tazobactam Sod 50 ml @ 100 mls/hr Q6 IVPB Last administered on 01/18/19 11:54; Admin Dose 100 MLS/HR; Start 01/18/19 at 12:00 Morphine Sulfate (morphine) 1 mg Q3 PRN IV SEVERE PAIN LEVEL 7-10; Start 01/18/19 at 19:00; Status UNV Hydromorphone HCl (Dilaudid REWIND OPERATOR) 0.2 mg Q2 IV ; Start 01/18/19 at 19:00; Status UNV Assessment/Plan Hospital Course (Demo Recall) 58-year-old female with a past medical history of ambulatory dysfunction was found confused and weak by her sister at home. Patient was brought in via EMS and was noted to be confused but she was answering questions appropriately accor ding to the ER doctor. Patient in the emergency department was also noted to be hypothermic and given her low GCS score patient was emergently intubated. She was found to have severe anemia with a hemoglobin of 2 along with lactic acidosis and renal failure. The patient was transfused and had a CT scan of the abdomen and pelvis that showed: 1. Pneumoperitoneum compatible with a perforated hollow viscus, the etiology of which is uncertain, severe constipation pattern is present. 2. Abnormal urinary bladder with a May catheter and gas both within the bladder and the bladder wall unable to exclude emphysematous cystitis and possibly a fistula with the adjacent colon. An abscess anterior to the urinary bladder is the possibility on this exam limited by the lack of intravenous contrast media. 3. Gallbladder distension with common bile duct dilatation but no evidence of calcified gallstones, findings of uncertain significance. 4. Gas is present within the right renal pelvis and right ureter for urinary tract infection with mild right hydroureter. 5. Mild splenomegaly. 6. Adrenal gland hyperplasia greater on the left. 7. Anasarca pattern. 8. Chronic T11 compression fracture deformity. The may catheter is draining clear urine. The urine culture showed: URINE CULTURE Final Organism 1 ESCHERICHIA COLI COLONY COUNT >100,000 CFU/ml E COLI M.I.C. RX --------- --- AMIKACIN <=2 S AMPICILLIN >=32 R CEFAZOLIN <=4 S CEFOTAXIME S CIPROFLOXACIN >=4 R GENTAMICIN >=16 R LEVOFLOXACIN >=8 R NITROFURANTOIN 32 S TOBRAMYCIN 8 I TRIMETHOPRIM/SULFAMETHOXAZOLE <=20 S PIPERACILLIN/TAZOBACTAM <=4 S Impression: urinary tract infection and possible colovesical fistula. Recommendation: For now keep the May catheter and continue the Zosyn and once she is stable later on one could do a CT cystogram and/or cystoscopy, colonoscopy to find out what is the problem. TINO RIVERA MD Jan 18, 2019 19:11
[2019-01-18] MEDS ORDERED: POTASSIUM CHLORIDE 100 ML IVPB ONE (19:30)
[2019-01-18] MEDS: HYDROmorphONE 0.2 MG/ML PCA IV SCH ×3 (22:22→23:00)
[2019-01-19] VITALS (85 sets, daily range): BP systolic 87–163; BP diastolic 53–95; PULSE 64–97; RESP 0–25
[2019-01-19] MEDS: PIPER-TAZO 2.25 GM (PMX) 50 ML IVPB SCH ×5 (00:48→23:40)
[2019-01-19] MEDS: HYDROmorphONE 0.2 MG/ML PCA IV SCH ×12 (01:00→23:00)
[2019-01-19] MEDS: INSULIN ASPART [NOVOLOG] 3 ML PEN SC SCH ×6 (01:00→21:00)
[2019-01-19] MEDS: ACCU-CHEK XX SCH (02:46)
[2019-01-19] MEDS: SOD CHLORIDE 0.9% 1,000 ML IV SCH (02:51)
--- NOTE | 2019-01-19 06:28 | CONS ---
Assessment/Plan Assessment/Plan Assessment/Plan (Daily) Asked to see patient in palliative care pain management consultation. First fall patient is a full code. She is a 58-year-old female who became confused at home complaining of severe abdominal discomfort over at least 3 days prior to his presentation she was self-medicating with ibuprofen. Brought to emergency room found to be in severe respiratory distress hemoglobin of 2 intubated secondary low GCS score. Patient was treated for severe sepsis, shock acute ventilatory respiratory failure acute anemia chronic kidney disease non-ST type I versus type II suspect demand ischemia leukocytosis thrombocytosis. CT scan done on the 01/17/2019 showed pneumoperitoneum compatible with a perforated perforated viscus, abnormal urinary bladder with Valadez catheter and gas both within the bladder and bladder wall unable to exclude emphysematous cystitis and possible fistula with an adjacent colon. An abscess anterior to the urinary bladder is a possibility next gallbladder distention and common bile duct dilation but no evidence of calcified gallstones finally gas is present within the right renal pelvis and the right ureter for urinary tract infection with mild right hydroureter. Dr. Sanford was called patient was not taken the OR secondary to hemodynamic instability with a hemoglobin level of 7 very low survival rate secondary to patient profoundly poor health. Daughter is at the bedside states that there is some discord between patient and her sister. She lives at her sister's home apparently has been bedridden for prolonged period of time secondary to a unclear lower extremity weakness. She is developed decubiti over the period of time that she has been bedridden. She uses a wheelchair not a walker she does not have home health care but still some of the details are unclear. Next patient is currently on propofol and fentanyl she is maxed out on fentanyl at 100 mics per hour. Pharmacy will not allow higher doses in spite of the fact that patient can have according to literature up to 100 mics per kilo. As patient has deteriorated from a pain management standpoint throughout the night of add on Dilaudid 0.2 mg continuous and lowered her dose of fentanyl to 75 mics per hour. She seems to be comfortable at this time. Patient is herb to opioids. Daughter is at the bedside who was last seen patient approximately [address] Sanford, Dr. Sevilla and Dr. Robins has had extensive conversations with the patient's daughter. Daughter has had extensive experience with a known family lately of having to deal with end-of-life issues that she has taken the initiative to be the spokesperson for level of care. There is another son who is not available at this time. Options have been explained to her in detail including by myself she understands that her mother is seriously ill and may not survive any surgical intervention. If she does postoperatively she may not survive secondary to severe sepsis in the other medical problems listed above or she may elect to continue with this level of care and follow her closely if she does not improve consider comfort measures. I spoke to patient's daughter for approximately 1 hour with no final decisions which were made pending the arrival of her brother. I have asked to think about CODE STATUS at least at this time and to call later on to give me an answer. But this was not done throughout the evening. A.m. laboratory tests pending imaging studies are pending. Patient's daughter is supposed to be here the 13th 6 and 7 AM I will reach out to her and discuss patient's CODE STATUS once again. Consultation Date/Type/Reason Admit Date/Time Jan 16, 2019 at 23:33 Date/Time of Note DATE: 01/19/19 TIME: 06:28 Past Medical History Medical History: diabetes (Possible), renal disease, urinary tract infection Medications Current Medications Norepinephrine 250 ml @ 1.875 mls/ hr TITRATE IV ; Start 01/16/19 at 22:00 Vancomycin HCl (Vanco Iv Per Pharmacy) VANCOMYCIN PER PHARMACY PER PROTOCOL XX ; Start 01/16/19 at 23:30 Albuterol (Ventolin Hfa) 4 puff Q2H RESP THERAPY PRN INH SHORTNESS OF BREATH; Start 01/17/19 at 00:00 Ipratropium [place] (Atrovent Hfa) 4 puff Q2H RESP THERAPY PRN INH SHORTNESS OF BREATH; Start 01/17/19 at 00:00 Acetaminophen (Tylenol Liquid) 650 mg Q6H PRN PO PAIN LEVEL 1-3 OR FEVER; Start 01/17/19 at 00:00 Propofol 100 ml @ 1.698 mls/ hr Q12H IV Last administered on 01/18/19at 23:08; Admin Dose 16.98 MLS/HR; Start 01/17/19 at 10:30 Diagnostic Test (Pha) (Accu-Chek) XX Last administered on 01/19/19at 02:46; Admin Dose 1 EA; Start 01/18/19 at 02:00 Insulin Aspart (Novolog Insulin Pen) NOVOLOG *MILD* ALGORI... Q4 SC Last adm inistered on 01/18/19at 12:32; Admin Dose 1 UNIT; Start 01/17/19 at 13:00 Miscellaneous Information 1 ea NOTE XX ; Start 01/17/19 at 11:00 Glucose (Glutose) 15 gm Q15M PRN PO DECREASED GLUCOSE; Start 01/17/19 at 11:00 Glucose (Glutose) 22.5 gm Q15M PRN PO DECREASED GLUCOSE; Start 01/17/19 at 11:00 Dextrose (D50w Syringe) 25 ml Q15M PRN IV DECREASED GLUCOSE; Start 01/17/19 at 11:00 Dextrose (D50w Syringe) 50 ml Q15M PRN IV DECREASED GLUCOSE; Start 01/17/19 at 11:00 Glucagon (Glucagen) 1 mg Q15M PRN IM DECREASED GLUCOSE; Start 01/17/19 at 11:00 Glucose (Glutose) 15 gm Q15M PRN BUCCAL DECREASED GLUCOSE; Start 01/17/19 at 11:00 Sodium Chloride 1,000 ml @ 100 mls/hr Q10H IV Last administered on 01/19/19at 02:51; Admin Dose 100 MLS/HR; Start 01/17/19 at 11:00 Famotidine (Pepcid Iv) 20 mg DAILY IV Last administered on 01/18/19 09:05; Admin Dose 20 MG; Start 01/18/19 at 09:00 Collagenase (Santyl) 1 applic DAILY TOP Last administered on 01/18/19at 09:05; Admin Dose 1 APPLIC; Start 01/17/19 at 17:00 Fentanyl 100 ml @ 2.5 mls/hr TITRATE IV Last administered on 01/18/19at 20:45; Admin Dose 10 MLS/HR; Start 01/17/19 at 21:30 Piperacillin Sod/ Tazobactam Sod 50 ml @ 100 mls/hr Q6 IVPB Last administered on 01/19/19at 06:15; Admin Dose 100 MLS/HR; Start 01/18/19 at 12:00 Morphine Sulfate (morphine) 1 mg Q3H PRN IV SEVERE PAIN LEVEL 7-10; Start 01/18/19 at 19:00 Hydromorphone HCl (Dilaudid PRODUCT SAFETY ASSOCIATE) 0.2 MG/HR CONTINUOUS RATE ... Q2 IV Last administered on 01/18/19at 22:41; Admin Dose 6 MG; Start 01/18/19 at 19:00 Allergies: Coded Allergies: Unknown: Unable to obtain (Unverified , 01/16/19) Past Surgical History Past Surgical Hx: no surgical history Social History Alcohol Use: other (Previous heavy alcohol use as per the sister) Smoking Status: Unknown if ever smoked Drug Use: none Exam/Review of Systems Exam Vitals Vital Signs Date Temp Pulse Resp B/P (MAP) Pulse Ox O2 O2 Flow FiO2 Time Delivery Rate 01/19/19 86 25 100 40 05:11 01/19/19 109/62 Mechanical 02:15 (78) Ventilator 01/19/19 98.7 00:00 Intake and Output 01/18/19 01/18/19 01/19/19 1414:59 22:59 06:59 IntakeIntake Total 1207.400 ml 951.732 ml 641 ml OutputOutput Total 725 ml 405 ml 150 ml BalanceBalance 482.400 ml 546.732 ml 491 ml Results Result Diagram: 01/18/19 0623 01/18/19 1713 Results 24hrs Laboratory Tests Test 01/18/19 09:14 01/18/19 12:21 01/18/19 16:34 01/18/19 17:13 Bedside Glucose 158 164 122 Prothrombin Time 16.8 H Prothrombin Time 1.3 Ratio INR International 1.35 Normalized Ratio Activated 25.6 Partial Thromboplast Time Sodium Level 147 H Potassium Level 3.2 L Chloride Level 119 H Carbon Dioxide Level 17 L Anion Gap 11 Blood Urea Nitrogen 72 H Creatinine 2.16 H Est Glomerular 23 L Filtrat Rate mL/min Glucose Level 99 Calcium Level 7.6 L Test 01/18/19 20:30 01/18/19 22:04 01/19/19 01:12 01/19/19 05:10 Stool Occult Blood POSITIVE Bedside Glucose 127 103 White Blood Count 10.0 Red Blood Count 2.32 L Hemoglobin 6.6 *L Hematocrit 20.8 L Mean Corpuscular 89.7 Volume Mean Corpuscular 28.4 L Hemoglobin Mean Corpuscular 31.7 L Hemoglobin Concent Red Cell 16.7 H Distribution Width Platelet Count 125 L Mean Platelet Volume 9.8 Immature 6.800 H Granulocytes % Neutrophils % Lymphocytes % Monocytes % Eosinophils % Basophils % Nucleated Red Blood 0.6 H Cells % Immature 0.680 H Granulocytes # Neutrophils # Lymphocytes # Monocytes # Eosinophils # Basophils # Nucleated Red Blood Cells # Phosphorus Level 3.8 Magnesium Level 2.5 Medications Medication Current Medications Norepinephrine 250 ml @ 1.875 mls/ hr TITRATE IV ; Start 01/16/19 at 22:00 Vancomycin HCl (Vanco Iv Per Pharmacy) VANCOMYCIN PER PHARMACY PER PROTOCOL XX ; Start 01/16/19 at 23:30 Albuterol (Ventolin Hfa) 4 puff Q2H RESP THERAPY PRN INH SHORTNESS OF BREATH; Start 01/17/19 at 00:00 Ipratropium [place] (Atrovent Hfa) 4 puff Q2H RESP THERAPY PRN INH SHORTNESS OF BREATH; Start 01/17/19 at 00:00 Acetaminophen (Tylenol Liquid) 650 mg Q6H PRN PO PAIN LEVEL 1-3 OR FEVER; Start 01/17/19 at 00:00 Propofol 100 ml @ 1.698 mls/ hr Q12H IV Last administered on 01/18/19at 23:08; Admin Dose 16.98 MLS/HR; Start 01/17/19 at 10:30 Diagnostic Test (Pha) (Accu-Chek) 1 ea 02 XX Last administered on 01/19/19at 02:46; Admin Dose 1 EA; Start 01/18/19 at 02:00 Insulin Aspart (Novolog Insulin Pen) NOVOLOG *MILD* ALGORI... Q4 SC Last administered on 01/18/19at 12:32; Admin Dose 1 UNIT; Start 01/17/19 at 13:00 Miscellaneous Information 1 ea NOTE XX ; Start 01/17/19 at 11:00 Glucose (Glutose) 15 gm Q15M PRN PO DECREASED GLUCOSE; Start 01/17/19 at 11:00 Glucose (Glutose) 22.5 gm Q15M PRN PO DECREASED GLUCOSE; Start 01/17/19 at 11:00 Dextrose (D50w Syringe) 25 ml Q15M PRN IV DECREASED GLUCOSE; Start 01/17/19 at 11:00 Dextrose (D50w Syringe) 50 ml Q15M PRN IV DECREASED GLUCOSE; Start 01/17/19 at 11:00 Glucagon (Glucagen) 1 mg Q15M PRN IM DECREASED GLUCOSE; Start 01/17/19 at 11:00 Glucose (Glutose) 15 gm Q15M PRN BUCCAL DECREASED GLUCOSE; Start 01/17/19 at 11:00 Sodium Chloride 1,000 ml @ 100 mls/hr Q10H IV Last administered on 01/19/19 02:51; Admin Dose 100 MLS/HR; Start 01/17/19 at 11:00 Famotidine (Pepcid Iv) 20 mg DAILY IV Last administered on 01/18/19 09:05; Admin Dose 20 MG; Start 01/18/19 at 09:00 Collagenase (Santyl) 1 applic DAILY TOP Last administered on 01/18/19 09:05; Admin Dose 1 APPLIC; Start 01/17/19 at 17:00 Fentanyl 100 ml @ 2.5 mls/hr TITRATE IV Last administered on 01/18/19at 20:45; Admin Dose 10 MLS/HR; Start 01/17/19 at 21:30 Piperacillin Sod/ Tazobactam Sod 50 ml @ 100 mls/hr Q6 IVPB Last administered on 01/19/19 06:15; Admin Dose 100 MLS/HR; Start 01/18/19 at 12:00 Morphine Sulfate (morphine) 1 mg Q3H PRN IV SEVERE PAIN LEVEL 7-10; Start 01/18/19 at 19:00 Hydromorphone HCl (Dilaudid PRODUCT SAFETY ASSOCIATE) 0.2 MG/HR CONTINUOUS RATE ... Q2 IV Last administered on 01/18/19at 22:41; Admin Dose 6 MG; Start 01/18/19 at 19:00 YAA JUAREZ Jan 19, 2019 06:28
--- NOTE | 2019-01-19 06:41 | CONS ---
Assessment/Plan Assessment/Plan Hospital Course (Demo Recall) 1) pneumoperitoneum and sepsis could be related to pt taking motrin for some pain continue with vanco/zosyn at present to renally dose them await decision by family regarding surgery vs hospice 01/18 - continue with vanco/zosyn CoNS in blood, only one bottle, likely represents contamination e.coli in urine is sensitive to the zosyn pt has EtOH abuse lactic acid has normalized 01/19 - MRSA in nasal area, likely perf is gastric or duodenal to continue with vanco at present and zosyn decrease in platelets noted, may need to change vanco if trend continues 2)severe anemia pt is being transfused only smears of stool since admission to get hemoccult 01/18 - Hgb is more stable 01/19 - drop in Hgb again, will need blood tx again 3) ARF with pyuria and hematuria (e.coli in urine) improving with hydration and blood tx await urine cx results 01/18 - improving urine output and creatinine urine cx has e.coli that is sensitive to zosyn renal u/s suggests hydro on the R and possible renal clot or debris on L 01/19 - further improvement in creatinine on zosyn for e.coli in urine 4) elevated troponins likely due to stress from severe anemia 5) hepatitis again likely due to sepsis and severe anemia check hep serologies 01/18 - hep serologies are pending 01/19 - neg hep serologies and HIV LFT's are trending down 6) L hip eschar/decubitus unstageable wound cx was ordered 01/18 - wound cx has not been done, nurse was informed 01/19 - wound cx was obtained and is pending 7) hypoalbuminemia pt came in with low albumin, she has likely been sick or not eating well for a while 8) CoNS bacteremia 01/18 - only one bottle has CoNS, likely this is contamination continue with vanco at present, await final wound cx results 9) decrease in platelets 01/19 - consider change of vanco if trend continues Consultation Date/Type/Reason Admit Date/Time Jan 16, 2019 at 23:33 Initial Consult Date 01/17/19 Type of Consult ID Requesting Provider: NINA HOLT Date/Time of Note DATE: 01/19/19 TIME: 06:34 24 HR Interval Summary Free Text/Dictation pt mouthed to nurse that she wants to live pt is sedated and intubated not on pressors no stools Exam/Review of Systems Exam Vitals Vital Signs Date Temp Pulse Resp B/P (MAP) Pulse Ox O2 O2 Flow FiO2 Time Delivery Rate 01/19/19 86 25 100 40 05:11 01/19/19 109/62 Mechanical 02:15 (78) Ventilator 01/19/19 98.7 00:00 Intake and Output 01/18/19 01/18/19 01/19/19 1515:00 23:00 07:00 IntakeIntake Total 1178.484 ml 828.148 ml 641 ml OutputOutput Total 700 ml 390 ml 90 ml BalanceBalance 478.484 ml 438.148 ml 551 ml Eyes: nl sclera Respiratory: clear to auscultation Cardiovascular: regular rate and rhythm Gastrointestinal: other (no BS, pt grimaces with abd exam) Results Result Diagram: 01/19/19 0510 01/18/19 1713 Results 24hrs Laboratory Tests Test 01/18/19 09:14 01/18/19 12:21 01/18/19 16:34 01/18/19 17:13 Bedside Glucose 158 164 122 Prothrombin Time 16.8 H Prothrombin Time 1.3 Ratio INR International 1.35 Normalized Ratio Activated 25.6 Partial Thromboplast Time Sodium Level 147 H Potassium Level 3.2 L Chloride Level 119 H Carbon Dioxide Level 17 L Anion Gap 11 Blood Urea Nitrogen 72 H Creatinine 2.16 H Est Glomerular 23 L Filtrat Rate mL/min Glucose Level 99 Calcium Level 7.6 L Test 01/18/19 20:30 01/18/19 22:04 01/19/19 01:12 01/19/19 05:10 Stool Occult Blood POSITIVE Bedside Glucose 127 103 White Blood Count 10.0 Red Blood Count 2.32 L Hemoglobin 6.6 *L Hematocrit 20.8 L Mean Corpuscular 89.7 Volume Mean Corpuscular 28.4 L Hemoglobin Mean Corpuscular 31.7 L Hemoglobin Concent Red Cell 16.7 H Distribution Width Platelet Count 125 L Mean Platelet Volume 9.8 Immature 6.800 H Granulocytes % Neutrophils % Lymphocytes % Monocytes % Eosinophils % Basophils % Nucleated Red Blood 0.6 H Cells % Immature 0.680 H Granulocytes # Neutrophils # Lymphocytes # Monocytes # Eosinophils # Basophils # Nucleated Red Blood Cells # Sodium Level 152 H Potassium Level 3.1 L Chloride Level 120 H Carbon Dioxide Level 17 L Anion Gap 15 H Blood Urea Nitrogen 62 H Creatinine 1.83 H Est Glomerular 28 L Filtrat Rate mL/min Glucose Level 95 Calcium Level 8.3 L Phosphorus Level 3.8 Magnesium Level 2.5 Total Bilirubin 0.1 L Direct Bilirubin 0.00 Indirect Bilirubin 0.1 Aspartate Amino 124 H Transf (AST/SGOT) Alanine 115 H Aminotransferase (AL T/SGPT) Alkaline Phosphatase 187 H Total Protein 5.5 L Albumin 2.4 L Globulin 3.10 Albumin/Globulin 0.77 Ratio Medications Medication Current Medications Norepinephrine 250 ml @ 1.875 mls/ hr TITRATE IV ; Start 01/16/19 at 22:00 Vancomycin HCl (Vanco Iv Per Pharmacy) VANCOMYCIN PER PHARMACY PER PROTOCOL XX ; Start 01/16/19 at 23:30 Albuterol (Ventolin Hfa) 4 puff Q2H RESP THERAPY PRN INH SHORTNESS OF BREATH; Start 01/17/19 at 00:00 Ipratropium [place] (Atrovent Hfa) 4 puff Q2H RESP THERAPY PRN INH SHORTNESS OF BREATH; Start 01/17/19 at 00:00 Acetaminophen (Tylenol Liquid) 650 mg Q6H PRN PO PAIN LEVEL 1-3 OR FEVER; Start 01/17/19 at 00:00 Propofol 100 ml @ 1.698 mls/ hr Q12H IV Last administered on 01/18/19at 23:08; Admin Dose 16.98 MLS/HR; Start 01/17/19 at 10:30 Diagnostic Test (Pha) (Accu-Chek) 1 ea 02 XX Last administered on 01/19/19at 02:46; Admin Dose 1 EA; Start 01/18/19 at 02:00 Insulin Aspart (Novolog Insulin Pen) NOVOLOG *MILD* ALGORI... Q4 SC Last administered on 01/18/19at 12:32; Admin Dose 1 UNIT; Start 01/17/19 at 13:00 Miscellaneous Information 1 ea NOTE XX ; Start 01/17/19 at 11:00 Glucose (Glutose) 15 gm Q15M PRN PO DECREASED GLUCOSE; Start 01/17/19 at 11:00 Glucose (Glutose) 22.5 gm Q15M PRN PO DECREASED GLUCOSE; Start 01/17/19 at 11:00 Dextrose (D50w Syringe) 25 ml Q15M PRN IV DECREASED GLUCOSE; Start 01/17/19 at 11:00 Dextrose (D50w Syringe) 50 ml Q15M PRN IV DECREASED GLUCOSE; Start 01/17/19 at 11:00 Glucagon (Glucagen) 1 mg Q15M PRN IM DECREASED GLUCOSE; Start 01/17/19 at 11:00 Glucose (Glutose) 15 gm Q15M PRN BUCCAL DECREASED GLUCOSE; Start 01/17/19 at 11:00 Sodium Chloride 1,000 ml @ 100 mls/hr Q10H IV Last administered on 01/19/19 02:51; Admin Dose 100 MLS/HR; Start 01/17/19 at 11:00 Famotidine (Pepcid Iv) 20 mg DAILY IV Last administered on 01/18/19 09:05; Admin Dose 20 MG; Start 01/18/19 at 09:00 Collagenase (Santyl) 1 applic DAILY TOP Last administered on 01/18/19 09:05; Admin Dose 1 APPLIC; Start 01/17/19 at 17:00 Fentanyl 100 ml @ 2.5 mls/hr TITRATE IV Last administered on 01/18/19at 20:45; Admin Dose 10 MLS/HR; Start 01/17/19 at 21:30 Piperacillin Sod/ Tazobactam Sod 50 ml @ 100 mls/hr Q6 IVPB Last administered on 01/19/19at 06:15; Admin Dose 100 MLS/HR; Start 01/18/19 at 12:00 Morphine Sulfate (morphine) 1 mg Q3H PRN IV SEVERE PAIN LEVEL 7-10; Start 01/18/19 at 19:00 Hydromorphone HCl (Dilaudid WATCH HAIRSPRING ASSEMBLER) 0.2 MG/HR CONTINUOUS RATE ... Q2 IV Last administered on 01/18/19at 22:41; Admin Dose 6 MG; Start 01/18/19 at 19:00 PATSY LEVY MD Jan 19, 2019 06:41
[2019-01-19] MEDS: PROPOFOL 100 ML IV SCH ×3 (07:31→21:02)
--- NOTE | 2019-01-19 08:11 | CONS ---
Consult Date/Type/Reason Admit Date/Time Jan 16, 2019 at 23:33 Initial Consult Date 01/17/19 Type of Consultation: CV Requesting Provider: NINA HOLT Date/Time of Note DATE: 01/19/19 TIME: 08:09 Subjective Interventional cardiology follow-up progress note/ Subjective: Discussed with the staff and physicians. yadira/ Dr Queen .Telemetry was reviewed. Patient remains intubated in the ICU patient appears to be awake today and is able to respond. no chest pain + abd pain Objective: General: Intubated on the vent HEENT: NC/AT. Eyes are closed NECK: no stridor. CV: RRR. systolic murmur; no gallop or rubs. PULM: no wheezing + rhonchi. GI: Distended.+ Tender to palpation Extremity: trace B/L LE edema. no clubbing. neuro: Awake. Follows basic commands Psych: calm rectal: deferred : status post Valadez catheter in place . EKG normal sinus rhythm poor R wave progression consistent with possible anterior infarct. ST-T wave abnormality suggestive of inferolateral ischemia Echocardiogram done January 17 which was personally reviewed shows: Lower limits of normal systolic function. Normal left ventricular cavity size. Mild concentric left ventricular hypertrophy. Ejection fraction is visually estimated at 45 %. Tissue Doppler/Mitral Doppler indices are consistent with impaired relaxation (Stage I diastolic dysfunction). These segments of the LV are hypokinetic apical anterior segment and apical septum. Mitral valve leaflets appear mildly thickened. Mild mitral annular calcification. Trace mitral regurgitation. Aortic valve Max velocity 2.28 m/sec. Max PG 21.00 mmHg. Mean PG 10.00 mmHg. Aortic sclerosis without significant stenosis. Trace aortic valve regurgitation. Normal appearance of the tricuspid valve. Estimated peak PA systolic pressure 79 mmHg. There is moderate tricuspid regurgitation. Objective Vitals Vital Signs Date Temp Pulse Resp B/P (MAP) Pulse Ox O2 O2 Flow FiO2 Time Delivery Rate 01/19/19 80 19 132/79 100 Mechanical 06:30 (96) Ventilator 01/19/19 40 05:11 01/19/19 98.7 04:00 Intake and Output 01/18/19 01/18/19 01/19/19 1515:00 23:00 07:00 IntakeIntake Total 1178.484 ml 828.148 ml 641 ml OutputOutput Total 700 ml 390 ml 490 ml BalanceBalance 478.484 ml 438.148 ml 151 ml Results/Medications Result Diagram: 01/19/19 0510 01/19/19 0510 Results 24 hrs Laboratory Tests Test 01/18/19 09:14 01/18/19 12:21 01/18/19 16:34 01/18/19 17:13 Bedside Glucose 158 164 122 Prothrombin Time 16.8 H Prothrombin Time 1.3 Ratio INR International 1.35 Normalized Ratio Activated 25.6 Partial Thromboplast Time Sodium Level 147 H Potassium Level 3.2 L Chloride Level 119 H Carbon Dioxide Level 17 L Anion Gap 11 Blood Urea Nitrogen 72 H Creatinine 2.16 H Est Glomerular 23 L Filtrat Rate mL/min Glucose Level 99 Calcium Level 7.6 L Test 01/18/19 20:30 01/18/19 22:04 01/19/19 01:12 01/19/19 05:10 Stool Occult Blood POSITIVE Bedside Glucose 127 103 White Blood Count 10.0 Red Blood Count 2.32 L Hemoglobin 6.6 *L Hematocrit 20.8 L Mean Corpuscular 89.7 Volume Mean Corpuscular 28.4 L Hemoglobin Mean Corpuscular 31.7 L Hemoglobin Concent Red Cell 16.7 H Distribution Width Platelet Count 125 L Mean Platelet Volume 9.8 Immature 6.800 H Granulocytes % Neutrophils % Segmented 75 Neutrophils % (Manual) Band Neutrophils % 10 H (Manual) Lymphocytes % Lymphocytes % 13 L (Manual) Monocytes % Eosinophils % Basophils % Metamyelocytes % 1 H (manual) Myelocytes % 1 H (Manual) Nucleated Red Blood 1 H Cells % Immature 0.680 H Granulocytes # Neutrophils # Neutrophils # 7.6 H (Manual) Band Neutrophils # 1.0 H Lymphocytes (Manual) 1.3 Lymphocytes # Monocytes # Eosinophils # Basophils # Metamyelocytes # 0.1 H Myelocytes # 0.1 H Nucleated Red Blood Cells # Platelet Estimate DECREASED Polychromasia 1+ Poikilocytosis 1+ Anisocytosis 2+ Microcytosis 1+ Sodium Level 152 H Potassium Level 3.1 L Chloride Level 120 H Carbon Dioxide Level 17 L Anion Gap 15 H Blood Urea Nitrogen 62 H Creatinine 1.83 H Est Glomerular 28 L Filtrat Rate mL/min Glucose Level 95 Calcium Level 8.3 L Phosphorus Level 3.8 Magnesium Level 2.5 Total Bilirubin 0.1 L Direct Bilirubin 0.00 Indirect Bilirubin 0.1 Aspartate Amino 124 H Transf (AST/SGOT) Alanine 115 H Aminotransferase (AL T/SGPT) Alkaline Phosphatase 187 H Total Protein 5.5 L Albumin 2.4 L Globulin 3.10 Albumin/Globulin 0.77 Ratio Medications Current Medications Norepinephrine 250 ml @ 1.875 mls/ hr TITRATE IV ; Start 01/16/19 at 22:00 Vancomycin HCl (Vanco Iv Per Pharmacy) VANCOMYCIN PER PHARMACY PER PROTOCOL XX ; Start 01/16/19 at 23:30 Albuterol (Ventolin Hfa) 4 puff Q2H RESP THERAPY PRN INH SHORTNESS OF BREATH; Start 01/17/19 at 00:00 Ipratropium [place] (Atrovent Hfa) 4 puff Q2H RESP THERAPY PRN INH SHORTNESS OF BREATH; Start 01/17/19 at 00:00 Acetaminophen (Tylenol Liquid) 650 mg Q6H PRN PO PAIN LEVEL 1-3 OR FEVER; Start 01/17/19 at 00:00 Propofol 100 ml @ 1.698 mls/ hr Q12H IV Last administered on 01/19/19at 07:31; Admin Dose 16.98 MLS/HR; Start 01/17/19 at 10:30 Diagnostic Test (Pha) (Accu-Chek) 1 ea 02 XX Last administered on 01/19/19at 02:46; Admin Dose 1 EA; Start 01/18/19 at 02:00 Insulin Aspart (Novolog Insulin Pen) NOVOLOG *MILD* ALGORI... Q4 SC Last administered on 01/18/19at 12:32; Admin Dose 1 UNIT; Start 01/17/19 at 13:00 Miscellaneous Information 1 ea NOTE XX ; Start 01/17/19 at 11:00 Glucose (Glutose) 15 gm Q15M PRN PO DECREASED GLUCOSE; Start 01/17/19 at 11:00 Glucose (Glutose) 22.5 gm Q15M PRN PO DECREASED GLUCOSE; Start 01/17/19 at 11:00 Dextrose (D50w Syringe) 25 ml Q15M PRN IV DECREASED GLUCOSE; Start 01/17/19 at 11:00 Dextrose (D50w Syringe) 50 ml Q15M PRN IV DECREASED GLUCOSE; Start 01/17/19 at 11:00 Glucagon (Glucagen) 1 mg Q15M PRN IM DECREASED GLUCOSE; Start 01/17/19 at 11:00 Glucose (Glutose) 15 gm Q15M PRN BUCCAL DECREASED GLUCOSE; Start 01/17/19 at 11:00 Sodium Chloride 1,000 ml @ 100 mls/hr Q10H IV Last administered on 01/19/19at 02:51; Admin Dose 100 MLS/HR; Start 01/17/19 at 11:00 Famotidine (Pepcid Iv) 20 mg DAILY IV Last administered on 01/18/19 09:05; Admin Dose 20 MG; Start 01/18/19 at 09:00 Collagenase (Santyl) 1 applic DAILY TOP Last administered on 01/18/19 09:05; Admin Dose 1 APPLIC; Start 01/17/19 at 17:00 Fentanyl 100 ml @ 2.5 mls/hr TITRATE IV Last administered on 01/18/19at 20:45; Admin Dose 10 MLS/HR; Start 01/17/19 at 21:30 Piperacillin Sod/ Tazobactam Sod 50 ml @ 100 mls/hr Q6 IVPB Last administered on 01/19/19at 06:15; Admin Dose 100 MLS/HR; Start 01/18/19 at 12:00 Morphine Sulfate (morphine) 1 mg Q3H PRN IV SEVERE PAIN LEVEL 7-10; Start 01/18/19 at 19:00 Hydromorphone HCl (Dilaudid EMERGENCY SERVICES DIRECTOR) 0.2 MG/HR CONTINUOUS RATE ... Q2 IV Last administered on 01/18/19at 22:41; Admin Dose 6 MG; Start 01/18/19 at 19:00 Assessment/Plan Hospital Course (Demo Recall) 1. Non-ST elevation myocardial infarction: At this point is unclear type I or type II 2. Shock multifactorial mostly septic 3. Severe sepsis 4. Severe anemia status post transfusions 5. Perforated viscus 6. Lactic acidosis 7. Renal failure probably acute 8. Cardiomyopathy 9. Incomplete data 10. Hypoxic respiratory failure status post intubation underwent 11. hypo K Recommendations: Follow with multiple customer sales consultant recommendations. Continue with supportive care. transfusion prn pt is NPO Unable to give aspirin given her severe anemia Continue with vent support respiratory care Follow-up with general surgery recommendation. Patient most likely will need exploratory laparotomy. Obviously because of her multiple comorbidities she would be at high risk of cardiovascular event but no further cardiac workup would be indicated or beneficial to the patient. Continue with ICU care. More than 33 minutes of critical care time was for management treatment is critically ill patient excluding any procedures Thank you for his referral. We will continue to follow along with you. EMILY LARA MD [facility] EMILY LARA MD Jan 19, 2019 08:11
--- NOTE | 2019-01-19 08:35 | PN ---
DATE: 01/19/2019 SUBJECTIVE: The patient remains critically ill on full ventilatory support. The patient is currentl y off pressor support. The patient's urinary output has been adequate. No other acute events noted. The patient remains on FOURDRINIER OPERATOR pump. OBJECTIVE: VITAL SIGNS: Blood pressure is 132/79, respirations 19, pulse 80, temperature 98.6. HEENT: Head is normocephalic. Pupils are reactive to light. NECK: Supple. HEART: Tachycardic. LUNGS: Show diminished breath sounds at the base. ABDOMEN: Soft, nontender to palpation without rebound or guarding. EXTREMITIES: Negative for clubbing, cyanosis, no edema. DERMATOLOGIC: No rashes. MUSCULOSKELETAL: No joint effusion. NEUROLOGIC: No change in exam. MUSCULOSKELETAL: The patient has multiple wounds noted. MEDICATIONS: Reviewed. LABORATORY DATA: Shows sodium 152, potassium 3.1, chloride 120, BUN 62, creatinine 1.83. White coun t 10.0, hemoglobin 6.6, platelet count is 125. The patient's stool occult blood is positive. Urinar y culture is positive for E. coli. Chest x-ray was reviewed. ASSESSMENT AND PLAN: 1. Nonoliguric acute kidney injury with unknown baseline creatinine. Etiology is multifactorial sec ondary to acute tubular necrosis, likely from volume depletion, NSAID use, shock. The patient's debbie l function has improved with IV fluids. At this point, continue current treatment plan, supportive c are, renally dose all medicines. 2. Hypernatremia. The patient has free water deficit of approximately 3 liters. We will change IV fluids. Start the patient on D5 water at 75 mL an hour and monitor serum sodium levels closely. 3. Hypokalemia. We will replete with potassium chloride. 4. Metabolic acidosis secondary to lactic acidosis, acute kidney injury, improving. Continue to mon itor. No need for bicarbonate drip. 5. Sepsis, status post shock secondary to pneumoperitoneum, urinary tract infection. Continue broad spectrum antibiotics, IV fluids. Currently, off pressor support. 6. Ventilator-dependent respiratory failure. Vent settings and ABG was reviewed. Continue to monit or. 7. Severe anemia secondary to gastrointestinal bleed from NSAID use, perforated viscus. Continue to monitor hemoglobin and hematocrit levels. Continue blood transfusions as needed. 8. Perforated viscus. The patient was seen by general surgery. Follow up recommendations. 9. Leukocytosis, likely from sepsis, severe anemia. The patient's WBCs have normalized. Continue t o monitor. 10. Non-ST elevation myocardial infarction type 2, likely due to severe sepsis. Continue to monitor . 11. Acute encephalopathy, etiology is toxic metabolic. Please note I spent over 30 minutes of critical care time with this patient. Dictated By: SHAW OLMSTEAD DO NR/NTS Conf#: [id number] DID#: [id number] CC: ALEK HANDLEY MD; BLAISE MARTINS MD; ALLISON WOLFF MD;*EndCC*
[2019-01-19] MEDS: COLLAGENASE 5 GM (UD JAR) TOP SCH (09:40)
[2019-01-19] MEDS: FAMOTIDINE 20 MG INJ IV SCH (09:40)
[2019-01-19] MEDS: POTASSIUM CHLORIDE 100 ML IVPB SCH ×2 (09:47→11:00)
[2019-01-19] MEDS: DEXTROSE 5% 1,000 ML IV SCH ×3 (09:54→21:02)
--- NOTE | 2019-01-19 11:10 | CONS ---
Consult Date/Type/Reason Admit Date/Time Jan 16, 2019 at 23:33 Initial Consult Date 01/17/19 Type of Consult Pulmonary Requesting Provider: NINA HOLT Date/Time of Note DATE: 01/19/19 TIME: 11:09 Subjective Patient continues mechanical ventilation remains awake and alert off sedation. Family considering surgery Objective Vital Signs Date Temp Pulse Resp B/P (MAP) Pulse Ox O2 O2 Flow FiO2 Time Delivery Rate 01/19/19 72 14 123/71 100 Mechanical 08:45 (88) Ventilator 01/19/19 40 08:00 01/19/19 97.7 08:00 Intake and Output 01/18/19 01/18/19 01/19/19 1414:59 22:59 06:59 IntakeIntake Total 1207.400 ml 951.732 ml 1174.5 ml OutputOutput Total 725 ml 405 ml 500 ml BalanceBalance 482.400 ml 546.732 ml 674.5 ml Exam PHYSICAL EXAMINATION: GENERAL: Chronically ill appearing lady on mechanical ventilation. VITAL SIGNS: NECK: Supple, no JVD or lymphadenopathy. CARDIAC: S1, S2, no added sounds or murmurs. CHEST: Diminished air entry bilaterally. ABDOMEN: Mildly distended. EXTREMITIES: No cyanosis, clubbing, edema. NEUROLOGIC: Unable to assess. Vent Setting Ventilator Support Mode: AC, VC plus Fraction of Inspired Oxygen pe: 40 Positive End Expiratory Pressu: 5.0 Results/Medications Result Diagram: 01/19/19 0510 01/19/19 0510 Results 24 hrs Laboratory Tests Test 01/18/19 12:21 01/18/19 16:34 01/18/19 17:13 01/18/19 20:30 Bedside Glucose 164 122 Prothrombin Time 16.8 H Prothrombin Time 1.3 Ratio INR International 1.35 Normalized Ratio Activated 25.[address] Time Sodium Level 147 H Potassium Level 3.2 L Chloride Level 119 H Carbon Dioxide 17 L Level Anion Gap 11 Blood Urea 72 H Nitrogen Creatinine 2.16 H Est Glomerular 23 L Filtrat Rate mL/min Glucose Level 99 Calcium Level 7.6 L Stool Occult Blood POSITIVE Test 01/18/19 22:04 01/19/19 01:12 01/19/19 05:10 01/19/19 09:47 Bedside Glucose 127 103 106 White Blood Count 10.0 Red Blood Count 2.32 L Hemoglobin 6.6 *L Hematocrit 20.8 L Mean Corpuscular 89.7 Volume Mean Corpuscular 28.4 L Hemoglobin Mean Corpuscular 31.7 L Hemoglobin Concent Red Cell 16.7 H Distribution Width Platelet Count 125 L Mean Platelet 9.8 Volume Immature 6.800 H Granulocytes % Neutrophils % Segmented 75 Neutrophils % (Manual) Band Neutrophils % 10 H (Manual) Lymphocytes % Lymphocytes % 13 L (Manual) Monocytes % Eosinophils % Basophils % Metamyelocytes % 1 H (manual) Myelocytes % 1 H (Manual) Nucleated Red 1 H Blood Cells % Immature 0.680 H Granulocytes # Neutrophils # Neutrophils # 7.6 H (Manual) Band Neutrophils # 1.0 H Lymphocytes 1.3 (Manual) Lymphocytes # Monocytes # Eosinophils # Basophils # Metamyelocytes # 0.1 H Myelocytes # 0.1 H Nucleated Red Blood Cells # Platelet Estimate DECREASED Polychromasia 1+ Poikilocytosis 1+ Anisocytosis 2+ Microcytosis 1+ Sodium Level 152 H Potassium Level 3.1 L Chloride Level 120 H Carbon Dioxide 17 L Level Anion Gap 15 H Blood Urea 62 H Nitrogen Creatinine 1.83 H Est Glomerular 28 L Filtrat Rate mL/min Glucose Level 95 Calcium Level 8.3 L Phosphorus Level 3.8 Magnesium Level 2.5 Total Bilirubin 0.1 L Direct Bilirubin 0.00 Indirect Bilirubin 0.1 Aspartate Amino 124 H Transf (AST/SGOT) Alanine 115 H Aminotransferase ( ALT/SGPT) Alkaline 187 H Phosphatase Total Protein 5.5 L Albumin 2.4 L Globulin 3.10 Albumin/Globulin 0.77 Ratio Test 01/19/19 10:04 Lab Scanned Report REFERENCE LAB Medications Current Medications Norepinephrine 250 ml @ 1.875 mls/ hr TITRATE IV ; Start 01/16/19 at 22:00 Vancomycin HCl (Vanco Iv Per Pharmacy) VANCOMYCIN PER PHARMACY PER PROTOCOL XX ; Start 01/16/19 at 23:30 Albuterol (Ventolin Hfa) 4 puff Q2H RESP THERAPY PRN INH SHORTNESS OF BREATH; Start 01/17/19 at 00:00 Ipratropium [place] (Atrovent Hfa) 4 puff Q2H RESP THERAPY PRN INH SHORTNESS OF BREATH; Start 01/17/19 at 00:00 Acetaminophen (Tylenol Liquid) 650 mg Q6H PRN PO PAIN LEVEL 1-3 OR FEVER; Start 01/17/19 at 00:00 Propofol 100 ml @ 1.698 mls/ hr Q12H IV Last administered on 01/19/19at 07:31; Admin Dose 16.98 MLS/HR; Start 01/17/19 at 10:30 Diagnostic Test (Pha) (Accu-Chek) 1 ea 02 XX Last administered on 01/19/19at 02:46; Admin Dose 1 EA; Start 01/18/19 at 02:00 Insulin Aspart (Novolog Insulin Pen) NOVOLOG *MILD* ALGORI... Q4 SC Last administered on 01/18/19at 12:32; Admin Dose 1 UNIT; Start 01/17/19 at 13:00 Miscellaneous Information 1 ea NOTE XX ; Start 01/17/19 at 11:00 Glucose (Glutose) 15 gm Q15M PRN PO DECREASED GLUCOSE; Start 01/17/19 at 11:00 Glucose (Glutose) 22.5 gm Q15M PRN PO DECREASED GLUCOSE; Start 01/17/19 at 11:00 Dextrose (D50w Syringe) 25 ml Q15M PRN IV DECREASED GLUCOSE; Start 01/17/19 at 11:00 Dextrose (D50w Syringe) 50 ml Q15M PRN IV DECREASED GLUCOSE; Start 01/17/19 at 11:00 Glucagon (Glucagen) 1 mg Q15M PRN IM DECREASED GLUCOSE; Start 01/17/19 at 11:00 Glucose (Glutose) 15 gm Q15M PRN BUCCAL DECREASED GLUCOSE; Start 01/17/19 at 11:00 Famotidine (Pepcid Iv) 20 mg DAILY IV Last administered on 01/19/19at 09:40; Admin Dose 20 MG; Start 01/18/19 at 09:00 Collagenase (Santyl) 1 applic DAILY TOP Last administered on 01/19/19at 09:40; Admin Dose 1 APPLIC; Start 01/17/19 at 17:00 Fentanyl 100 ml @ 2.5 mls/hr TITRATE IV Last administered on 01/18/19at 20:45; Admin Dose 10 MLS/HR; Start 01/17/19 at 21:30 Piperacillin Sod/ Tazobactam Sod 50 ml @ 100 mls/hr Q6 IVPB Last administered on 01/19/19at 06:15; Admin Dose 100 MLS/HR; Start 01/18/19 at 12:00 Morphine Sulfate (morphine) 1 mg Q3H PRN IV SEVERE PAIN LEVEL 7-10; Start 01/18/19 at 19:00 Hydromorphone HCl (Dilaudid [employer]) 0.2 MG/HR CONTINUOUS RATE ... Q2 IV Last administered on 01/18/19at 22:41; Admin Dose 6 MG; Start 01/18/19 at 19:00 Dextrose 1,000 ml @ 100 mls/hr Q10H IV Last administered on 01/19/19at 09:54; Admin Dose 100 MLS/HR; Start 01/19/19 at 08:30 Potassium Chloride 100 ml @ 50 mls/hr Q2H IVPB Last administered on 01/19/19at 09:47; Admin Dose 50 MLS/HR; Start 01/19/19 at 08:30; Stop 01/19/19 at 12:29 Assessment/Plan Hospital Course (Demo Recall) IMPRESSION AND PLAN: 1. Severe anemia, questionable ongoing chronic bleeding. 2. Marked metabolic acidosis. 3. Severe sepsis. Perforated viscus. Status post acute abdomen 4. Encephalopathy, toxic metabolic. 5. History of paraplegia per chart. 6. Renal failure, likely prerenal. 7. Non-ST elevation myocardial infarction, likely secondary to hypoperfusion. 8. Hypo-kalemia Plan 1. Continued vent support. CPAP trial this morning 2. Transfusion of packed red blood cells. 3. Broad-spectrum antibiotics. 4. Increase free water. Replace electro lites. 5. Perforated viscus patient currently stable no plan for surgery at present. 6. DVT and GI prophylaxis. Critical care time 40 minutes. Appreciate palliative care evaluation. HIWOT ODELL MD, [facility] Jan 19, 2019 11:10
--- NOTE | 2019-01-19 13:07 | PN ---
Date/Time of Note Date/Time of Note DATE: 01/18/19 TIME: 18:20 Assessment/Plan Lines/Catheters IV Catheter Type (from Nrs): Central Line Valadez in Place (from Nrs): Yes Assessment/Plan Chief Complaint/Hosp Course 1. pneumoperitoneum with possible perforated hollow viscus: -Had lengthy discussion with patient's daughter regarding surgical options and high surgical risk, at this time patient and daughter still undecided regarding surgery -Supportive measures -N.p.o. -Pain management -Antibiotics 2. 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 UTI: 2/ #2 -abx per sensitivity -frequent bladder emptying/cath care 4. Hypochromic anemia: -Monitor and transfuse as needed 5. Sepsis, leukocytosis: WBC normalized -Supportive (antibiotics, fluids,etc) -As above 6. Electrolyte imbalance: -Optimize electrolytes 7. JACKIE: -Limit nephrotoxic meds -Renally dose meds -Per renal 8. Thrombocytopenia mild, -Monitor 9. Transaminitis: Likely / #5 -Trend 10. NSTEMI: -Cardiac optimization per cards Thank you. Patient seen and examined in collaboration with Dr. Osei Sanford. Late entry Subjective 24 Hr Interval Summary Off of sedation. Drop in H&H. Continues on ventilator. No fevers, sob, congested cough, cp, palpitations, keita, dizziness, nausea, vomiting, diarrhea, dysuria. Abdominal pain. Exam/Review of Systems Vital Signs Vitals Vital Signs Date Temp Pulse Resp B/P (MAP) Pulse Ox O2 O2 Flow FiO2 Time Delivery Rate 01/19/19 89 13 157/91 99 Mechanical 12:30 (113) Ventilator 01/19/19 98.2 12:00 01/19/19 40 10:00 Intake and Output 01/18/19 01/18/19 01/19/19 1515:00 23:00 07:00 IntakeIntake Total 1178.484 ml 828.148 ml 1274.5 ml OutputOutput Total 700 ml 390 ml 490 ml BalanceBalance 478.484 ml 438.148 ml 784.5 ml Exam Constitutional: alert, well developed; No distress Psych: nl mood/affect, anxiety (Minimal) Head: normocephalic, atraumatic Eyes: nl conjunctiva, EOMI, nl lids, nl sclera ENMT: nl external ears & nose, nl lips & teeth, mucosa pink and moist, intubated Neck: supple, non-tender; No jvd Respiratory: normal air movement; No congested cough, No labored breathing Cardiovascular: regular rate and rhythm, nl pulses; No edema Gastrointestinal: soft, distended, tender (Diffuse) Genitourinary - Female: nl external genitalia Musculoskeletal: nl extremities to inspection, nl gait and stance Extremities: normal pulses Neurological: nl mental status (Answers simple questions, follows simple commands), nl strength; No nl speech (Intubated) Skin: No rash or lesions Lymph: nl lymph nodes Results Result Diagram: 01/19/19 0510 01/19/19 0510 MASSIMO WATKINS NP Jan 19, 2019 13:07
--- NOTE | 2019-01-19 13:10 | PN ---
Date/Time of Note Date/Time of Note DATE: 01/19/19 TIME: 13:07 Assessment/Plan Lines/Catheters IV Catheter Type (from Nrsg): Central Line Valadez in Place (from Nrsg): Yes Assessment/Plan Chief Complaint/Hosp Course 1. Pneumoperitoneum with possible perforated hollow viscus: -Had lengthy discussion with patient's daughter regarding surgical options (explore lap) and high surgical risk, at this time, decision is to treat conservatively with close monitoring -Supportive measures -N.p.o.> consider parenteral nutrition -Pain management -Continue antibiotics 2. 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 UTI: 2/ #2 -abx per sensitivity -frequent bladder emptying/cath care 4. Hypochromic anemia: -Monitor and transfuse as needed 5. Sepsis, leukocytosis: WBC normalized -Supportive (antibiotics, fluids,etc) -As above 6. Electrolyte imbalance: -Optimize electrolytes 7. JACKIE: -Limit nephrotoxic meds -Renally dose meds -Per renal 8. Thrombocytopenia mild, -Monitor 9. Transaminitis: Likely / #5 -Trend 10. NSTEMI: -Cardiac optimization per cards Thank you. Patient seen and examined in collaboration with Dr. Osei Sanford. Subjective 24 Hr Interval Summary Appears comfortable. Continues on vent. Nonverbal indicators of pain not present. Currently on sedation. No fevers, labored breathing, congested cough, arrhythmias, vomiting, diarrhea, hematuria. Exam/Review of Systems Vital Signs Vitals Vital Signs Date Temp Pulse Resp B/P (MAP) Pulse Ox O2 O2 Flow FiO2 Time Delivery Rate 01/19/19 89 13 157/91 99 Mechanical 12:30 (113) Ventilator 01/19/19 98.2 12:00 01/19/19 40 10:00 Intake and Output 01/18/19 01/18/19 01/19/19 1515:00 23:00 07:00 IntakeIntake Total 1178.484 ml 828.148 ml 1274.5 ml OutputOutput Total 700 ml 390 ml 490 ml BalanceBalance 478.484 ml 438.148 ml 784.5 ml Exam Free Text/Dictation Constitutional: Sedated well developed; No distress Psych: nl mood/affect, anxiety (Minimal) Head: normocephalic, atraumatic Eyes: nl conjunctiva, EOMI, nl lids, nl sclera ENMT: nl external ears & nose, nl lips & teeth, mucosa pink and moist, intubated Neck: supple, non-tender; No jvd Respiratory: normal air movement; No congested cough, No labored breathing Cardiovascular: regular rate and rhythm, nl pulses; No edema Gastrointestinal: soft, distended, tender (Diffuse) Genitourinary - Female: nl external genitalia Musculoskeletal: nl extremities to inspection, nl gait and stance Extremities: normal pulses Neurological: No nl speech (Intubated), no normal strength (sedated) Skin: No rash or lesions Lymph: nl lymph nodes Results Result Diagram: 01/19/19 0510 01/19/19 0510 MASSIMO WATKINS NP Jan 19, 2019 13:10
--- NOTE | 2019-01-19 13:13 | PN ---
Date/Time of Note Date/Time of Note DATE: 01/19/19 TIME: 13:11 Assessment/Plan VTE Prophylaxis Risk score (from Ns)>0 risk: 11 SCD applied (from Ns): No SCD contraindicated: other (scds) Pharmacological prophylaxis: other (scds) Lines/Catheters [facility]from [facility] Central Line Central line still needed: Yes (meds) Urinary Cath still in place: Yes Reason Cath still needed: other (indicate) (monitor output) Assessment/Plan Hospital Course Summary Assessment and Plan: Assessment: Profound leukocytosis- resolved Bacteremia UTI- E.coli Profound macrocytic anemia-improving with blood transfusion Coagulopathy Pneumoperitoneum compatible with a perforated hollow viscus Abnormal urinary bladder with a Valadez catheter and gas both within the bladder and the bladder wall 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 Rosenthal Subjective: Course reviewed with nursing staff Patient interviewed and examined All labs, imaging and other results reviewed Dip in HGB without overt signs of GI bleed Maintain close observation. Pt remains in ICU intubated. PHYSICAL EXAMINATION: GENERAL: Ill appearing, intubated, sedated SKIN: decubitus wounds EYES: Pupils sluggish EARS/NOSE AND THROAT: Ears normal, nose normal, Intubated NECK: Supple, no masses. CHEST: Inspection within normal limits. CARDIOVASCULAR: Heart: Regular rate and rhythm RESPIRATORY: Coarse GASTROINTESTINAL AND LIVER: Abdomen: Soft, non-distended, no hernias, hypoactive/absent bowel sounds. Rectal: Deferred. : f/c in place, query fecal content EXTREMITIES: No cyanosis, clubbing or edema. Result Diagram: 01/19/19 0510 01/19/19 0510 Results 24hrs Laboratory Tests Test 01/18/19 16:34 01/18/19 17:13 01/18/19 20:30 01/18/19 22:04 Bedside Glucose 122 127 Prothrombin Time 16.8 H Prothrombin Time 1.3 Ratio INR International 1.35 Normalized Ratio Activated 25.[address] Time Sodium Level 147 H Potassium Level 3.2 L Chloride Level 119 H Carbon Dioxide 17 L Level Anion Gap 11 Blood Urea 72 H Nitrogen Creatinine 2.16 H Est Glomerular 23 L Filtrat Rate mL/min Glucose Level 99 Calcium Level 7.6 L Stool Occult Blood POSITIVE Test 01/19/19 01:12 01/19/19 05:10 01/19/19 09:47 01/19/19 10:04 Bedside Glucose 103 106 White Blood Count 10.0 Red Blood Count 2.32 L Hemoglobin 6.6 *L Hematocrit 20.8 L Mean Corpuscular 89.7 Volume Mean Corpuscular 28.4 L Hemoglobin Mean Corpuscular 31.7 L Hemoglobin Concent Red Cell 16.7 H Distribution Width Platelet Count 125 L Mean Platelet 9.8 Volume Immature 6.800 H Granulocytes % Neutrophils % Segmented 75 Neutrophils % (Manual) Band Neutrophils % 10 H (Manual) Lymphocytes % Lymphocytes % 13 L (Manual) Monocytes % Eosinophils % Basophils % Metamyelocytes % 1 H (manual) Myelocytes % 1 H (Manual) Nucleated Red 1 H Blood Cells % Immature 0.680 H Granulocytes # Neutrophils # Neutrophils # 7.6 H (Manual) Band Neutrophils # 1.0 H Lymphocytes 1.3 (Manual) Lymphocytes # Monocytes # Eosinophils # Basophils # Metamyelocytes # 0.1 H Myelocytes # 0.1 H Nucleated Red Blood Cells # Platelet Estimate DECREASED Polychromasia 1+ Poikilocytosis 1+ Anisocytosis 2+ Microcytosis 1+ Sodium Level 152 H Potassium Level 3.1 L Chloride Level 120 H Carbon Dioxide 17 L Level Anion Gap 15 H Blood Urea 62 H Nitrogen Creatinine 1.83 H Est Glomerular 28 L Filtrat Rate mL/min Glucose Level 95 Calcium Level 8.3 L Phosphorus Level 3.8 Magnesium Level 2.5 Total Bilirubin 0.1 L Direct Bilirubin 0.00 Indirect Bilirubin 0.1 Aspartate Amino 124 H Transf (AST/SGOT) Alanine 115 H Aminotransferase ( ALT/SGPT) Alkaline 187 H Phosphatase Total Protein 5.5 L Albumin 2.4 L Globulin 3.10 Albumin/Globulin 0.77 Ratio Lab Scanned Report REFERENCE LAB Exam/Review of Systems Exam Vitals Vital Signs Date Temp Pulse Resp B/P (MAP) Pulse Ox O2 O2 Flow FiO2 Time Delivery Rate 01/19/19 89 13 157/91 99 Mechanical 12:30 (113) Ventilator 01/19/19 98.2 12:00 01/19/19 40 12:00 Intake and Output 01/18/19 01/18/19 01/19/19 1515:00 23:00 07:00 IntakeIntake Total 1178.484 ml 828.148 ml 1274.5 ml OutputOutput Total 700 ml 390 ml 490 ml BalanceBalance 478.484 ml 438.148 ml 784.5 ml Results Results 24hrs Laboratory Tests Test 01/18/19 16:34 01/18/19 17:13 01/18/19 20:30 01/18/19 22:04 Bedside Glucose 122 127 Prothrombin Time 16.8 H Prothrombin Time 1.3 Ratio INR International 1.35 Normalized Ratio Activated 25.[address] Time Sodium Level 147 H Potassium Level 3.2 L Chloride Level 119 H Carbon Dioxide 17 L Level Anion Gap 11 Blood Urea 72 H Nitrogen Creatinine 2.16 H Est Glomerular 23 L Filtrat Rate mL/min Glucose Level 99 Calcium Level 7.6 L Stool Occult Blood POSITIVE Test 01/19/19 01:12 01/19/19 05:10 01/19/19 09:47 01/19/19 10:04 Bedside Glucose 103 106 White Blood Count 10.0 Red Blood Count 2.32 L Hemoglobin 6.6 *L Hematocrit 20.8 L Mean Corpuscular 89.7 Volume Mean Corpuscular 28.4 L Hemoglobin Mean Corpuscular 31.7 L Hemoglobin Concent Red Cell 16.7 H Distribution Width Platelet Count 125 L Mean Platelet 9.8 Volume Immature 6.800 H Granulocytes % Neutrophils % Segmented 75 Neutrophils % (Manual) Band Neutrophils % 10 H (Manual) Lymphocytes % Lymphocytes % 13 L (Manual) Monocytes % Eosinophils % Basophils % Metamyelocytes % 1 H (manual) Myelocytes % 1 H (Manual) Nucleated Red 1 H Blood Cells % Immature 0.680 H Granulocytes # Neutrophils # Neutrophils # 7.6 H (Manual) Band Neutrophils # 1.0 H Lymphocytes 1.3 (Manual) Lymphocytes # Monocytes # Eosinophils # Basophils # Metamyelocytes # 0.1 H Myelocytes # 0.1 H Nucleated Red Blood Cells # Platelet Estimate DECREASED Polychromasia 1+ Poikilocytosis 1+ Anisocytosis 2+ Microcytosis 1+ Sodium Level 152 H Potassium Level 3.1 L Chloride Level 120 H Carbon Dioxide 17 L Level Anion Gap 15 H Blood Urea 62 H Nitrogen Creatinine 1.83 H Est Glomerular 28 L Filtrat Rate mL/min Glucose Level 95 Calcium Level 8.3 L Phosphorus Level 3.8 Magnesium Level 2.5 Total Bilirubin 0.1 L Direct Bilirubin 0.00 Indirect Bilirubin 0.1 Aspartate Amino 124 H Transf (AST/SGOT) Alanine 115 H Aminotransferase ( ALT/SGPT) Alkaline 187 H Phosphatase Total Protein 5.5 L Albumin 2.4 L Globulin 3.10 Albumin/Globulin 0.77 Ratio Lab Scanned Report REFERENCE LAB Medications Medication Current Medications Norepinephrine 250 ml @ 1.875 mls/ hr TITRATE IV ; Start 01/16/19 at 22:00 Vancomycin HCl (Vanco Iv Per Pharmacy) VANCOMYCIN PER PHARMACY PER PROTOCOL XX ; Start 01/16/19 at 23:30 Albuterol (Ventolin Hfa) 4 puff Q2H RESP THERAPY PRN INH SHORTNESS OF BREATH; Start 01/17/19 at 00:00 Ipratropium [place] (Atrovent Hfa) 4 puff Q2H RESP THERAPY PRN INH SHORTNESS OF BREATH; Start 01/17/19 at 00:00 Acetaminophen (Tylenol Liquid) 650 mg Q6H PRN PO PAIN LEVEL 1-3 OR FEVER; Start 01/17/19 at 00:00 Propofol 100 ml @ 1.698 mls/ hr Q12H IV Last administered on 01/19/19at 07:31; Admin Dose 16.98 MLS/HR; Start 01/17/19 at 10:30 Diagnostic Test (Pha) (Accu-Chek) 1 ea 02 XX Last administered on 01/19/19at 02:46; Admin Dose 1 EA; Start 01/18/19 at 02:00 Insulin Aspart (Novolog Insulin Pen) NOVOLOG *MILD* ALGORI... Q4 SC Last administered on 01/18/19at 12:32; Admin Dose 1 UNIT; Start 01/17/19 at 13:00 Miscellaneous Information 1 ea NOTE XX ; Start 01/17/19 at 11:00 Glucose (Glutose) 15 gm Q15M PRN PO DECREASED GLUCOSE; Start 01/17/19 at 11:00 Glucose (Glutose) 22.5 gm Q15M PRN PO DECREASED GLUCOSE; Start 01/17/19 at 11:00 Dextrose (D50w Syringe) 25 ml Q15M PRN IV DECREASED GLUCOSE; Start 01/17/19 at 11:00 Dextrose (D50w Syringe) 50 ml Q15M PRN IV DECREASED GLUCOSE; Start 01/17/19 at 11:00 Glucagon (Glucagen) 1 mg Q15M PRN IM DECREASED GLUCOSE; Start 01/17/19 at 11:00 Glucose (Glutose) 15 gm Q15M PRN BUCCAL DECREASED GLUCOSE; Start 01/17/19 at 11:00 Famotidine (Pepcid Iv) 20 mg DAILY IV Last administered on 01/19/19 09:40; Admin Dose 20 MG; Start 01/18/19 at 09:00 Collagenase (Santyl) 1 applic DAILY TOP Last administered on 01/19/19 09:40; Admin Dose 1 APPLIC; Start 01/17/19 at 17:00 Fentanyl 100 ml @ 2.5 mls/hr TITRATE IV Last administered on 01/18/19at 20:45; Admin Dose 10 MLS/HR; Start 01/17/19 at 21:30 Piperacillin Sod/ Tazobactam Sod 50 ml @ 100 mls/hr Q6 IVPB Last administered on 01/19/19 06:15; Admin Dose 100 MLS/HR; Start 01/18/19 at 12:00 Morphine Sulfate (morphine) 1 mg Q3H PRN IV SEVERE PAIN LEVEL 7-10; Start 01/18/19 at 19:00 Hydromorphone HCl (Dilaudid CHANNELER) 0.2 MG/HR CONTINUOUS RATE ... Q2 IV Last administered on 01/18/19at 22:41; Admin Dose 6 MG; Start 01/18/19 at 19:00 Dextrose 1,000 ml @ 100 mls/hr Q10H IV Last administered on 01/19/19at 09:54; Admin Dose 100 MLS/HR; Start 01/19/19 at 08:30 Vancomycin/Sodium Chloride 250 ml @ 125 mls/hr Q24H IVPB ; Start 01/19/19 at 15:00 DAGO STEARNS Jan 19, 2019 13:13
--- NOTE | 2019-01-19 14:24 | PN ---
Date/Time of Note Date/Time of Note DATE: 01/19/19 TIME: 14:21 Assessment/Plan VTE Prophylaxis Risk score (from Ns)>0 risk: 11 Pharmacological prophylaxis: NA/contraindicated Pharm contraindication: surgical contra Assessment/Plan Hospital Course 1. Septic shock: Secondary to pneumoperitoneum, UTI, infected wound versus choco ology Culture growing E. coli, blood culture growing gram-negative rods Continue broad-spectrum antibiotics of vancomycin and Zosyn Off pressors ID consultation appreciated CT abdomen does show pneumoperitoneum compatible with a perforated hollow viscus, etiology is uncertain, abnormal urinary bladder with possible emphysematous cystitis and possible fistula with, Abscess anterior to the bladder is also possible Surgery consultation appreciated, patient is too unstable for surgery at this time Urology consultation appreciated 2. Acute respiratory failure secondary to above Pulmonology managing vent, wean off vent as able 3. Hypokalemia Replete 4. Macrocytic anemia secondary to elevated reticulocyte count Status post 4 units of packed red blood cells 5. Severe leukocytosis-improved 6. Thrombocytosis-resolved Monitor 7. Acute kidney injury secondary to severe septic shock-improving Continue IV fluids Nephrology consultation appreciated 8. Non-STEMI likely type II secondary to severe sepsis Cardiac consultation appreciated 9. Coagulopathy secondary to DIC 10. Hypernatremia D5W Prophylaxis: SCDs, Protonix Result Diagram: 01/19/19 0510 01/19/19 0510 Results 24hrs Laboratory Tests Test 01/18/19 16:34 01/18/19 17:13 01/18/19 20:30 01/18/19 22:04 Bedside Glucose 122 127 Prothrombin Time 16.8 H Prothrombin Time 1.3 Ratio INR 1.35 International Normalized Ratio Activated 25.6 Partial Thrombop last Time Sodium Level 147 H Potassium Level 3.2 L Chloride Level 119 H Carbon Dioxide 17 L Level Anion Gap 11 Blood Urea 72 H Nitrogen Creatinine 2.16 H Est Glomerular 23 L Filtrat Rate mL/min Glucose Level 99 Calcium Level 7.6 L Stool Occult POSITIVE Blood Test 01/19/19 01:12 01/19/19 05:10 01/19/19 09:47 01/19/19 10:04 Bedside Glucose 103 106 White Blood 10.0 Count Red Blood Count 2.32 L Hemoglobin 6.6 *L Hematocrit 20.8 L Mean Corpuscular 89.7 Volume Mean Corpuscular 28.4 L Hemoglobin Mean Corpuscular 31.7 L Hemoglobin Helen nt Red Cell 16.7 H Distribution Width Platelet Count 125 L Mean Platelet 9.8 Volume Immature 6.800 H Granulocytes % Neutrophils % Segmented 75 Neutrophils % (Manual) Band Neutrophils 10 H % (Manual) Lymphocytes % Lymphocytes % 13 L (Manual) Monocytes % Eosinophils % Basophils % Metamyelocytes % 1 H (manual) Myelocytes % 1 H (Manual) Nucleated Red 1 H Blood Cells % Immature 0.680 H Granulocytes # Neutrophils # Neutrophils # 7.6 H (Manual) Band Neutrophils 1.0 H # Lymphocytes 1.3 (Manual) Lymphocytes # Monocytes # Eosinophils # Basophils # Metamyelocytes # 0.1 H Myelocytes # 0.1 H Nucleated Red Blood Cells # Platelet DECREASED Estimate Polychromasia 1+ Poikilocytosis 1+ Anisocytosis 2+ Microcytosis 1+ Sodium Level 152 H Potassium Level 3.1 L Chloride Level 120 H Carbon Dioxide 17 L Level Anion Gap 15 H Blood Urea 62 H Nitrogen Creatinine 1.83 H Est Glomerular 28 L Filtrat Rate mL/min Glucose Level 95 Calcium Level 8.3 L Phosphorus Level 3.8 Magnesium Level 2.5 Total Bilirubin 0.1 L Direct Bilirubin 0.00 Indirect 0.1 Bilirubin Aspartate Amino 124 H Transf (AST/SGOT ) Alanine 115 H Aminotransferase (ALT/SGPT) Alkaline 187 H Phosphatase Total Protein 5.5 L Albumin 2.4 L Globulin 3.10 Albumin/Globulin 0.77 Ratio Lab Scanned REFERENCE LAB Report Test 01/19/19 12:30 01/19/19 13:20 Blood Gas Blood arterial Specimen Source Arterial Blood 01/19/2019 12:15 Date Drawn :00 PM Arterial Blood 7.364 pH (Temp corrected) Arterial Blood 30.0 L pCO2 (Temp correct) Arterial Blood 153.6 H pO2 (Temp corrected) Arterial Blood 16.7 L HCO3 Arterial Blood -7.8 L Base Excess Arterial Blood 98.4 H Oxygen Saturatio n Jose Test ACCEPTAB Arterial Blood Right Radial Gas Puncture Site Arterial 0.3 Blood Carboxyhem oglobin Arterial Blood 0.3 Methemoglobin Blood Gas A-a O2 97.1 H Differential Oxyhemoglobin 97.8 Percent Blood Gas 37.0 Temperature Blood Gas Actual 16 Respiration Rate Blood Gas VENT - CPAP Modality FiO2 40.0 Blood Gas Low 5.0 PEEP Setting Blood Gas 10 Pressure Support Blood Gas TM Notified Whom Blood Gas 01/19/2019 12:33 Notified Time :00 PM Bedside Glucose 140 Subjective 24 Hr Interval Summary Subjective hx not possible: pt non-verbal Exam/Review of Systems Exam Vitals Vital Signs Date Temp Pulse Resp B/P (MAP) Pulse Ox O2 O2 Flow FiO2 Time Delivery Rate 01/19/19 73 23 100 40 13:50 01/19/19 157/91 Mechanical 12:30 (113) Ventilator 01/19/19 98.2 12:00 Intake and Output 01/18/19 01/18/19 01/19/19 1515:00 23:00 07:00 IntakeIntake Total 1178.484 ml 828.148 ml 1274.5 ml OutputOutput Total 700 ml 390 ml 490 ml BalanceBalance 478.484 ml 438.148 ml 784.5 ml Constitutional: non-verbal ENMT: intubated Respiratory: clear to auscultation Cardiovascular: regular rate and rhythm Gastrointestinal: soft; No distended Musculoskeletal: nl extremities to inspection Results Results 24hrs Laboratory Tests Test 01/18/19 16:34 01/18/19 17:13 01/18/19 20:30 01/18/19 22:04 Bedside Glucose 122 127 Prothrombin Time 16.8 H Prothrombin Time 1.3 Ratio INR 1.35 International Normalized Ratio Activated 25.6 Partial Thrombop last Time Sodium Level 147 H Potassium Level 3.2 L Chloride Level 119 H Carbon Dioxide 17 L Level Anion Gap 11 Blood Urea 72 H Nitrogen Creatinine 2.16 H Est Glomerular 23 L Filtrat Rate mL/min Glucose Level 99 Calcium Level 7.6 L Stool Occult POSITIVE Blood Test 01/19/19 01:12 01/19/19 05:10 01/19/19 09:47 01/19/19 10:04 Bedside Glucose 103 106 White Blood 10.0 Count Red Blood Count 2.32 L Hemoglobin 6.6 *L Hematocrit 20.8 L Mean Corpuscular 89.7 Volume Mean Corpuscular 28.4 L Hemoglobin Mean Corpuscular 31.7 L Hemoglobin Helen nt Red Cell 16.7 H Distribution Width Platelet Count 125 L Mean Platelet 9.8 Volume Immature 6.800 H Granulocytes % Neutrophils % Segmented 75 Neutrophils % (Manual) Band Neutrophils 10 H % (Manual) Lymphocytes % Lymphocytes % 13 L (Manual) Monocytes % Eosinophils % Basophils % Metamyelocytes % 1 H (manual) Myelocytes % 1 H (Manual) Nucleated Red 1 H Blood Cells % Immature 0.680 H Granulocytes # Neutrophils # Neutrophils # 7.6 H (Manual) Band Neutrophils 1.0 H # Lymphocytes 1.3 (Manual) Lymphocytes # Monocytes # Eosinophils # Basophils # Metamyelocytes # 0.1 H Myelocytes # 0.1 H Nucleated Red Blood Cells # Platelet DECREASED Estimate Polychromasia 1+ Poikilocytosis 1+ Anisocytosis 2+ Microcytosis 1+ Sodium Level 152 H Potassium Level 3.1 L Chloride Level 120 H Carbon Dioxide 17 L Level Anion Gap 15 H Blood Urea 62 H Nitrogen Creatinine 1.83 H Est Glomerular 28 L Filtrat Rate mL/min Glucose Level 95 Calcium Level 8.3 L Phosphorus Level 3.8 Magnesium Level 2.5 Total Bilirubin 0.1 L Direct Bilirubin 0.00 Indirect 0.1 Bilirubin Aspartate Amino 124 H Transf (AST/SGOT ) Alanine 115 H Aminotransferase (ALT/SGPT) Alkaline 187 H Phosphatase Total Protein 5.5 L Albumin 2.4 L Globulin 3.10 Albumin/Globulin 0.77 Ratio Lab Scanned REFERENCE LAB Report Test 01/19/19 12:30 01/19/19 13:20 Blood Gas Blood arterial Specimen Source Arterial Blood 01/19/2019 12:15 Date Drawn :00 PM Arterial Blood 7.364 pH (Temp corrected) Arterial Blood 30.0 L pCO2 (Temp correct) Arterial Blood 153.6 H pO2 (Temp corrected) Arterial Blood 16.7 L HCO3 Arterial Blood -7.8 L Base Excess Arterial Blood 98.4 H Oxygen Saturatio n Jose Test ACCEPTAB Arterial Blood Right Radial Gas Puncture Site Arterial 0.3 Blood Carboxyhem oglobin Arterial Blood 0.3 Methemoglobin Blood Gas A-a O2 97.1 H Differential Oxyhemoglobin 97.8 Percent Blood Gas 37.0 Temperature Blood Gas Actual 16 Respiration Rate Blood Gas VENT - CPAP Modality FiO2 40.0 Blood Gas Low 5.0 PEEP Setting Blood Gas 10 Pressure Support Blood Gas TM Notified Whom Blood Gas 01/19/2019 12:33 Notified Time :00 PM Bedside Glucose 140 Medications Medication Current Medications Norepinephrine 250 ml @ 1.875 mls/ hr TITRATE IV ; Start 01/16/19 at 22:00 Vancomycin HCl (Vanco Iv Per Pharmacy) VANCOMYCIN PER PHARMACY PER PROTOCOL XX ; Start 01/16/19 at 23:30 Albuterol (Ventolin Hfa) 4 puff Q2H RESP THERAPY PRN INH SHORTNESS OF BREATH; Start 01/17/19 at 00:00 Ipratropium [place] (Atrovent Hfa) 4 puff Q2H RESP THERAPY PRN INH SHORTNESS OF BREATH; Start 01/17/19 at 00:00 Acetaminophen (Tylenol Liquid) 650 mg Q6H PRN PO PAIN LEVEL 1-3 OR FEVER; Start 01/17/19 at 00:00 Propofol 100 ml @ 1.698 mls/ hr Q12H IV Last administered on 01/19/19at 13:26; Admin Dose 16.98 MLS/HR; Start 01/17/19 at 10:30 Diagnostic Test (Pha) (Accu-Chek) 1 ea 02 XX Last administered on 01/19/19at 02:46; Admin Dose 1 EA; Start 01/18/19 at 02:00 Insulin Aspart (Novolog Insulin Pen) NOVOLOG *MILD* ALGORI... Q4 SC Last administered on 01/18/19at 12:32; Admin Dose 1 UNIT; Start 01/17/19 at 13:00 Miscellaneous Information 1 ea NOTE XX ; Start 01/17/19 at 11:00 Glucose (Glutose) 15 gm Q15M PRN PO DECREASED GLUCOSE; Start 01/17/19 at 11:00 Glucose (Glutose) 22.5 gm Q15M PRN PO DECREASED GLUCOSE; Start 01/17/19 at 11:00 Dextrose (D50w Syringe) 25 ml Q15M PRN IV DECREASED GLUCOSE; Start 01/17/19 at 11:00 Dextrose (D50w Syringe) 50 ml Q15M PRN IV DECREASED GLUCOSE; Start 01/17/19 at 11:00 Glucagon (Glucagen) 1 mg Q15M PRN IM DECREASED GLUCOSE; Start 01/17/19 at 11:00 Glucose (Glutose) 15 gm Q15M PRN BUCCAL DECREASED GLUCOSE; Start 01/17/19 at 11:00 Famotidine (Pepcid Iv) 20 mg DAILY IV Last administered on 01/19/19at 09:40; Admin Dose 20 MG; Start 01/18/19 at 09:00 Collagenase (Santyl) 1 applic DAILY TOP Last administered on 01/19/19at 09:40; Admin Dose 1 APPLIC; Start 01/17/19 at 17:00 Fentanyl 100 ml @ 2.5 mls/hr TITRATE IV Last administered on 01/18/19 20:45; Admin Dose 10 MLS/HR; Start 01/17/19 at 21:30 Piperacillin Sod/ Tazobactam Sod 50 ml @ 100 mls/hr Q6 IVPB Last administered on 01/19/19 13:21; Admin Dose 100 MLS/HR; Start 01/18/19 at 12:00 Morphine Sulfate (morphine) 1 mg Q3H PRN IV SEVERE PAIN LEVEL 7-10; Start 01/18/19 at 19:00 Hydromorphone HCl (Dilaudid ST[employer]ENT [employer] COUN[employer]) 0.2 MG/HR CONTINUOUS RATE ... Q2 IV Last administered on 01/18/19at 22:41; Admin Dose 6 MG; Start 01/18/19 at 19:00 Dextrose 1,000 ml @ 100 mls/hr Q10H IV Last administered on 01/19/19 09:54; Admin Dose 100 MLS/HR; Start 01/19/19 at 08:30 Vancomycin/Sodium Chloride 250 ml @ 125 mls/hr Q24H IVPB ; Start 01/19/19 at 15:00 ALLISON WOLFF Jan 19, 2019 14:24
[2019-01-19] MEDS: VANCOMYCIN 750 MG (PMX) 250 ML IVPB SCH (16:00)
[2019-01-19] MEDS: FENTAnyl (DRIP) 1000 mcg/100mL 100 ML IV SCH ×3 (16:30→23:06)
--- NOTE | 2019-01-19 17:52 | CONS ---
Consult Date/Type/Reason Admit Date/Time Jan 16, 2019 at 23:33 Initial Consult Date 01/17/19 Type of Consultation: Urology Reason for Consultation Possible colovesical fistula and urinary tract infection Requesting Provider: NINA HOLT Date/Time of Note DATE: 01/19/19 TIME: 17:49 Subjective Patient remains on a respirator and sedated Objective Vitals Vital Signs Date Temp Pulse Resp B/P (MAP) Pulse Ox O2 O2 Flow FiO2 Time Delivery Rate 01/19/19 69 20 100 40 17:20 01/19/19 157/91 Mechanical 12:30 (113) Ventilator 01/19/19 98.2 12:00 Intake and Output 01/18/19 01/18/19 01/19/19 1515:00 23:00 07:00 IntakeIntake Total 1178.484 ml 828.148 ml 1274.5 ml OutputOutput Total 700 ml 390 ml 490 ml BalanceBalance 478.484 ml 438.148 ml 784.5 ml Exam May catheter is draining cloudy urine but there is no hematuria at the present. Urine culture: URINE CULTURE Final Organism 1 ESCHERICHIA COLI COLONY COUNT >100,000 CFU/ml E COLI M.I.C. RX --------- --- AMIKACIN <=2 S AMPICILLIN >=32 R CEFAZOLIN <=4 S CEFOTAXIME S CIPROFLOXACIN >=4 R GENTAMICIN >=16 R LEVOFLOXACIN >=8 R NITROFURANTOIN 32 S TOBRAMYCIN 8 I TRIMETHOPRIM/SULFAMETHOXAZOLE <=20 S PIPERACILLIN/TAZOBACTAM <=4 S Results/Medications Result Diagram: 01/19/19 0510 01/19/19 1438 Results 24 hrs Laboratory Tests Test 01/18/19 20:30 01/18/19 22:04 01/19/19 01:12 01/19/19 05:10 Stool Occult POSITIVE Blood Bedside Glucose 127 103 White Blood 10.0 Count Red Blood Count 2.32 L Hemoglobin 6.6 *L Hematocrit 20.8 L Mean Corpuscular 89.7 Volume Mean Corpuscular 28.4 L Hemoglobin Mean Corpuscular 31.7 L Hemoglobin Helen nt Red Cell 16.7 H Distribution Width Platelet Count 125 L Mean Platelet 9.8 Volume Immature 6.800 H Granulocytes % Neutrophils % Segmented 75 Neutrophils % (Manual) Band Neutrophils 10 H % (Manual) Lymphocytes % Lymphocytes % 13 L (Manual) Monocytes % Eosinophils % Basophils % Metamyelocytes % 1 H (manual) Myelocytes % 1 H (Manual) Nucleated Red 1 H Blood Cells % Immature 0.680 H Granulocytes # Neutrophils # Neutrophils # 7.6 H (Manual) Band Neutrophils 1.0 H # Lymphocytes 1.3 (Manual) Lymphocytes # Monocytes # Eosinophils # Basophils # Metamyelocytes # 0.1 H Myelocytes # 0.1 H Nucleated Red Blood Cells # Platelet DECREASED Estimate Polychromasia 1+ Poikilocytosis 1+ Anisocytosis 2+ Microcytosis 1+ Sodium Level 152 H Potassium Level 3.1 L Chloride Level 120 H Carbon Dioxide 17 L Level Anion Gap 15 H Blood Urea 62 H Nitrogen Creatinine 1.83 H Est Glomerular 28 L Filtrat Rate mL/min Glucose Level 95 Calcium Level 8.3 L Phosphorus Level 3.8 Magnesium Level 2.5 Total Bilirubin 0.1 L Direct Bilirubin 0.00 Indirect 0.1 Bilirubin Aspartate Amino 124 H Transf (AST/SGOT ) Alanine 115 H Aminotransferase (ALT/SGPT) Alkaline 187 H Phosphatase Total Protein 5.5 L Albumin 2.4 L Globulin 3.10 Albumin/Globulin 0.77 Ratio Test 01/19/19 09:47 01/19/19 10:04 01/19/19 12:30 01/19/19 13:20 Bedside Glucose 106 140 Lab Scanned REFERENCE LAB Report Blood Gas Blood arterial Specimen Source Arterial Blood 01/19/2019 12:15 Date Drawn :00 PM Arterial Blood 7.364 pH (Temp corrected) Arterial Blood 30.0 L pCO2 (Temp correct) Arterial Blood 153.6 H pO2 (Temp corrected) Arterial Blood 16.7 L HCO3 Arterial Blood -7.8 L Base Excess Arterial Blood 98.4 H Oxygen Saturatio n Jose Test ACCEPTAB Arterial Blood Right Radial Gas Puncture Site Arterial 0.3 Blood Carboxyhem oglobin Arterial Blood 0.3 Methemoglobin Blood Gas A-a O2 97.1 H Differential Oxyhemoglobin 97.8 Percent Blood Gas 37.0 Temperature Blood Gas Actual 16 Respiration Rate Blood Gas VENT - CPAP Modality FiO2 40.0 Blood Gas Low 5.0 PEEP Setting Blood Gas 10 Pressure Support Blood Gas TM Notified Whom Blood Gas 01/19/2019 12:33 Notified Time :00 PM Test 01/19/19 13:45 01/19/19 14:38 01/19/19 17:22 Urine Color YELLOW Urine Clarity TURBID A Urine pH 5.0 Urine Specific 1.017 [place] Urine Ketones NEGATIVE Urine Nitrite NEGATIVE Urine Bilirubin NEGATIVE Urine NEGATIVE Urobilinogen Urine Leukocyte 3+ H Esterase Urine > 182 H Microscopic RBC Urine > 182 H Microscopic WBC Urine Bacteria MANY A Urine Hemoglobin 3+ H Urine Random 38.00 Creatinine Urine Random 33 Sodium Urine Glucose NEGATIVE Urine Total 127.0 H Protein Sodium Level 151 H Potassium Level 3.8 Chloride Level 121 H Carbon Dioxide 17 L Level Anion Gap 13 Blood Urea 55 H Nitrogen Creatinine 1.61 H Est Glomerular 33 L Filtrat Rate mL/min Glucose Level 125 Calcium Level 8.5 Bedside Glucose 133 Home Meds Reported Medications Gabapentin* (Gabapentin*) 100 Mg Capsule, 100 MG PO TID, #90 CAP 01/20/18 Medications Current Medications Norepinephrine 250 ml @ 1.875 mls/ hr TITRATE IV ; Start 01/16/19 at 22:00 Vancomycin HCl (Vanco Iv Per Pharmacy) VANCOMYCIN PER PHARMACY PER PROTOCOL XX ; Start 01/16/19 at 23:30 Albuterol (Ventolin Hfa) 4 puff Q2H RESP THERAPY PRN INH SHORTNESS OF BREATH; Start 01/17/19 at 00:00 Ipratropium [place] (Atrovent Hfa) 4 puff Q2H RESP THERAPY PRN INH SHORTNESS OF BREATH; Start 01/17/19 at 00:00 Acetaminophen (Tylenol Liquid) 650 mg Q6H PRN PO PAIN LEVEL 1-3 OR FEVER; Start 01/17/19 at 00:00 Propofol 100 ml @ 1.698 mls/ hr Q12H IV Last administered on 01/19/19at 13:26; Admin Dose 16.98 MLS/HR; Start 01/17/19 at 10:30 Diagnostic Test (Pha) (Accu-Chek) 1 ea 02 XX Last administered on 01/19/19at 02:46; Admin Dose 1 EA; Start 01/18/19 at 02:00 Insulin Aspart (Novolog Insulin Pen) NOVOLOG *MILD* ALGORI... Q4 SC Last administered on 01/18/19at 12:32; Admin Dose 1 UNIT; Start 01/17/19 at 13:00 Miscellaneous Information 1 ea NOTE XX ; Start 01/17/19 at 11:00 Glucose (Glutose) 15 gm Q15M PRN PO DECREASED GLUCOSE; Start 01/17/19 at 11:00 Glucose (Glutose) 22.5 gm Q15M PRN PO DECREASED GLUCOSE; Start 01/17/19 at 11:00 Dextrose (D50w Syringe) 25 ml Q15M PRN IV DECREASED GLUCOSE; Start 01/17/19 at 11:00 Dextrose (D50w Syringe) 50 ml Q15M PRN IV DECREASED GLUCOSE; Start 01/17/19 at 11:00 Glucagon (Glucagen) 1 mg Q15M PRN IM DECREASED GLUCOSE; Start 01/17/19 at 11:00 Glucose (Glutose) 15 gm Q15M PRN BUCCAL DECREASED GLUCOSE; Start 01/17/19 at 11:00 Famotidine (Pepcid Iv) 20 mg DAILY IV Last administered on 01/19/19at 09:40; Admin Dose 20 MG; Start 01/18/19 at 09:00 Collagenase (Santyl) 1 applic DAILY TOP Last administered on 01/19/19 09:40; Admin Dose 1 APPLIC; Start 01/17/19 at 17:00 Fentanyl 100 ml @ 2.5 mls/hr TITRATE IV Last administered on 01/18/19at 20:45; Admin Dose 10 MLS/HR; Start 01/17/19 at 21:30 Piperacillin Sod/ Tazobactam Sod 50 ml @ 100 mls/hr Q6 IVPB Last administered on 01/19/19at 17:20; Admin Dose 100 MLS/HR; Start 01/18/19 at 12:00 Morphine Sulfate (morphine) 1 mg Q3H PRN IV SEVERE PAIN LEVEL 7-10; Start 01/18/19 at 19:00 Hydromorphone HCl (Dilaudid STOCK MOVER) 0.2 MG/HR CONTINUOUS RATE ... Q2 IV Last administered on 01/18/19at 22:41; Admin Dose 6 MG; Start 01/18/19 at 19:00 Dextrose 1,000 ml @ 100 mls/hr Q10H IV Last administered on 01/19/19at 17:20; Admin Dose 100 MLS/HR; Start 01/19/19 at 08:30 Vancomycin/Sodium Chloride 250 ml @ 125 mls/hr Q24H IVPB Last administered on 01/19/19at 16:00; Admin Dose 125 MLS/HR; Start 01/19/19 at 15:00 Assessment/Plan Hospital Course (Demo Recall) 58-year-old female with a past medical history of ambulatory dysfunction was found confused and weak by her sister at home. Patient was brought in via EMS and was noted to be confused but she was answering questions appropriately according to the ER doctor. Patient in the emergency department was also noted to be hypothermic and given her low GCS score patient was emergently intubated. She was found to have severe anemia with a hemoglobin of 2 along with lactic acidosis and renal failure. The patient was transfused and had a CT scan of the abdomen and pelvis that showed: 1. Pneumoperitoneum compatible with a perforated hollow viscus, the etiology of which is uncertain, severe constipation pattern is present. 2. Abnormal urinary bladder with a May catheter and gas both within the bladder and the bladder wall unable to exclude emphysematous cystitis and possibly a fistula with the adjacent colon. An abscess anterior to the urinary bladder is the possibility on this exam limited by the lack of intravenous contrast media. 3. Gallbladder distension with common bile duct dilatation but no evidence of calcified gallstones, findings of uncertain significance. 4. Gas is present within the right renal pelvis and right ureter for urinary tract infection with mild right hydroureter. 5. Mild splenomegaly. 6. Adrenal gland hyperplasia greater on the left. 7. Anasarca pattern. 8. Chronic T11 compression fracture deformity. The may catheter is draining clear urine. The urine culture showed: URINE CULTURE Final Organism 1 ESCHERICHIA COLI COLONY COUNT >100,000 CFU/ml E COLI M.I.C. RX --------- --- AMIKACIN <=2 S AMPICILLIN >=32 R CEFAZOLIN <=4 S CEFOTAXIME S CIPROFLOXACIN >=4 R GENTAMICIN >=16 R LEVOFLOXACIN >=8 R NITROFURANTOIN 32 S TOBRAMYCIN 8 I TRIMETHOPRIM/SULFAMETHOXAZOLE <=20 S PIPERACILLIN/TAZOBACTAM <=4 S Impression: urinary tract infection and possible colovesical fistula. Recommendation: For now keep the Mya catheter and continue the Zosyn and vancomycin. And once she is stable later on one could do a CT cystogram and/or cystoscopy, colonoscopy to find out what is the problem and visualize any colovesical fistula that may be present. TINO RIVERA MD Jan 19, 2019 17:52
[2019-01-20] VITALS (51 sets, daily range): BP systolic 105–169; BP diastolic 65–130; PULSE 62–101; RESP 9–29
[2019-01-20] MEDS: INSULIN ASPART [NOVOLOG] 3 ML PEN SC SCH ×6 (01:00→21:00)
[2019-01-20] MEDS: HYDROmorphONE 0.2 MG/ML PCA IV SCH ×12 (01:00→23:00)
[2019-01-20] MEDS: ACCU-CHEK XX SCH (01:16)
[2019-01-20] MEDS: PROPOFOL 100 ML IV SCH ×2 (03:18→09:56)
[2019-01-20] MEDS: PIPER-TAZO 2.25 GM (PMX) 50 ML IVPB SCH ×4 (05:39→23:45)
--- NOTE | 2019-01-20 06:49 | CONS ---
Assessment/Plan Assessment/Plan Hospital Course (Demo Recall) 1) pneumoperitoneum and sepsis could be related to pt taking motrin for some pain continue with vanco/zosyn at present to renally dose them await decision by family regarding surgery vs hospice 01/18 - continue with vanco/zosyn CoNS in blood, only one bottle, likely represents contamination e.coli in urine is sensitive to the zosyn pt has EtOH abuse lactic acid has normalized 01/19 - MRSA in nasal area, likely perf is gastric or duodenal to continue with vanco at present and zosyn decrease in platelets noted, may need to change vanco if trend continues 01/20 - no significant change a.m. labs are pending due to blood tx overnight on vanco/zosyn pt has GNR in blood cx, ID is pending but sensitive to zosyn 2)severe anemia pt is being transfused only smears of stool since admission to get hemoccult 01/18 - Hgb is more stable 01/19 - drop in Hgb again, will need blood tx again 01/20 - pt tx again, a.m. labs are pending 3) ARF with pyuria and hematuria (e.coli in urine) improving with hydration and blood tx await urine cx results 01/18 - improving urine output and creatinine urine cx has e.coli that is sensitive to zosyn renal u/s suggests hydro on the R and possible renal clot or debris on L 01/19 - further improvement in creatinine on zosyn for e.coli in urine 4) elevated troponins likely due to stress from severe anemia 5) hepatitis again likely due to sepsis and severe anemia check hep serologies 01/18 - hep serologies are pending 01/19 - neg hep serologies and HIV LFT's are trending down 6) L hip eschar/decubitus unstageable wound cx was ordered 01/18 - wound cx has not been done, nurse was informed 01/19 - wound cx was obtained and is pending 01/20 - wound cx has GPC growing 7) hypoalbuminemia pt came in with low albumin, she has likely been sick or not eating well for a while 8) CoNS bacteremia 01/18 - only one bottle has CoNS, likely this is contamination continue with vanco at present, await final wound cx results 9) decrease in platelets 01/19 - consider change of vanco if trend continues 01/20 - her MRSA is sensitive to doxy so could change vanco to that 10) GNR in original blood cx 01/20 - ID is pending but it is sensitive to zosyn Consultation Date/Type/Reason Admit Date/Time Jan 16, 2019 at 23:33 Initial Consult Date 01/17/19 Type of Consult ID Requesting Provider: NINA HOLT Date/Time of Note DATE: 01/20/19 TIME: 06:33 24 HR Interval Summary Free Text/Dictation pt got blood Tx overnight sedated and intubated she one dark stool still NPO Exam/Review of Systems Exam Vitals Vital Signs Date Temp Pulse Resp B/P (MAP) Pulse Ox O2 O2 Flow FiO2 Time Delivery Rate 01/20/19 65 20 114/73 100 Mechanical 06:00 (87) Ventilator 01/20/19 30 05:10 01/20/19 97.9 04:00 Intake and Output 01/19/19 01/19/19 01/20/19 1515:00 23:00 07:00 IntakeIntake Total 685.0 ml 1015.232 ml 971.36 ml OutputOutput Total 260 ml 540 ml 450 ml BalanceBalance 425.0 ml 475.232 ml 521.36 ml Exam intubated and sedated Constitutional: non-verbal Respiratory: clear to auscultation Cardiovascular: regular rate and rhythm Gastrointestinal: other (no BS) Results Result Diagram: 01/19/19 1848 01/19/19 1848 Results 24hrs Laboratory Tests Test 01/19/19 09:47 01/19/19 10:04 01/19/19 12:30 01/19/19 13:20 Bedside Glucose 106 140 Lab Scanned REFERENCE LAB Report Blood Gas Blood arterial Specimen Source Arterial Blood 01/19/2019 12:15 Date Drawn :00 PM Arterial Blood 7.364 pH (Temp corrected) Arterial Blood 30.0 L pCO2 (Temp correct) Arterial Blood 153.6 H pO2 (Temp corrected) Arterial Blood 16.7 L HCO3 Arterial Blood -7.8 L Base Excess Arterial Blood 98.4 H Oxygen Saturatio n Jose Test ACCEPTAB Arterial Blood Right Radial Gas Puncture Site Arterial 0.3 Blood Carboxyhem oglobin Arterial Blood 0.3 Methemoglobin Blood Gas A-a O2 97.1 H Differential Oxyhemoglobin 97.8 Percent Blood Gas 37.0 Temperature Blood Gas Actual 16 Respiration Rate Blood Gas VENT - CPAP Modality FiO2 40.0 Blood Gas Low 5.0 PEEP Setting Blood Gas 10 Pressure Support Blood Gas TM Notified Whom Blood Gas 01/19/2019 12:33 Notified Time :00 PM Test 01/19/19 13:45 01/19/19 14:38 01/19/19 17:22 01/19/19 18:48 Urine Color YELLOW Urine Clarity TURBID A Urine pH 5.0 Urine Specific 1.017 [place] Urine Ketones NEGATIVE Urine Nitrite NEGATIVE Urine Bilirubin NEGATIVE Urine NEGATIVE Urobilinogen Urine Leukocyte 3+ H Esterase Urine > 182 H Microscopic RBC Urine > 182 H Microscopic WBC Urine Bacteria MANY A Urine Hemoglobin 3+ H Urine Random 38.00 Creatinine Urine Random 33 Sodium Urine Glucose NEGATIVE Urine Total 127.0 H Protein Sodium Level 151 H 150 H Potassium Level 3.8 3.5 Chloride Level 121 H 122 H Carbon Dioxide 17 L 17 L Level Anion Gap 13 11 Blood Urea 55 H 52 H Nitrogen Creatinine 1.61 H 1.54 H Est Glomerular 33 L 35 L Filtrat Rate mL/min Glucose Level 125 113 Calcium Level 8.5 8.2 L Bedside Glucose 133 White Blood 7.8 # Count Red Blood Count 2.51 L Hemoglobin 7.2 L Hematocrit 22.5 L Mean Corpuscular 89.6 Volume Mean Corpuscular 28.7 L Hemoglobin Mean Corpuscular 32.0 Hemoglobin Helen nt Red Cell 16.0 H Distribution Width Platelet Count 90 #L Mean Platelet 9.6 Volume Immature 5.000 H Granulocytes % Neutrophils % 68.5 Segmented 74 Neutrophils % (Manual) Band Neutrophils 1 % (Manual) Lymphocytes % 17.7 Lymphocytes % 10 L (Manual) Monocytes % 7.1 Monocytes % 6 (Manual) Eosinophils % 1.4 Eosinophils % 6 (Manual) Basophils % 0.3 Basophils % 1 (Manual) Myelocytes % 2 H (Manual) Nucleated Red 1.0 H Blood Cells % Immature 0.390 H Granulocytes # Neutrophils # 5.3 Neutrophils # 5.8 (Manual) Band Neutrophils 0.0 # Lymphocytes 0.7 L (Manual) Lymphocytes # 1.4 Monocytes # 0.6 Monocytes # 0.4 (Manual) Eosinophils # 0.1 Basophils # 0.0 Basophils # 0.0 (Manual) Myelocytes # 0.1 H Nucleated Red 0.1 H Blood Cells # Anisocytosis 1+ Microcytosis 1+ Test 3/27/19 21:01 01/20/19 00:43 01/20/19 04:57 01/20/19 05:17 Bedside Glucose 139 125 131 Lab Scanned BLOOD TRANSFUSI Report ON Medications Medication Current Medications Norepinephrine 250 ml @ 1.875 mls/ hr TITRATE IV ; Start 01/16/19 at 22:00 Vancomycin HCl (Vanco Iv Per Pharmacy) VANCOMYCIN PER PHARMACY PER PROTOCOL XX ; Start 01/16/19 at 23:30 Albuterol (Ventolin Hfa) 4 puff Q2H RESP THERAPY PRN INH SHORTNESS OF BREATH; Start 01/17/19 at 00:00 Ipratropium [place] (Atrovent Hfa) 4 puff Q2H RESP THERAPY PRN INH SHORTNESS OF BREATH; Start 01/17/19 at 00:00 Acetaminophen (Tylenol Liquid) 650 mg Q6H PRN PO PAIN LEVEL 1-3 OR FEVER; Start 01/17/19 at 00:00 Propofol 100 ml @ 1.698 mls/ hr Q12H IV Last administered on 01/20/19at 03:18; Admin Dose 16.98 MLS/HR; Start 01/17/19 at 10:30 Diagnostic Test (Pha) (Accu-Chek) 1 ea 02 XX Last administered on 01/19/19at 02:46; Admin Dose 1 EA; Start 01/18/19 at 02:00 Insulin Aspart (Novolog Insulin Pen) NOVOLOG *MILD* ALGORI... Q4 SC Last admini stered on 01/18/19at 12:32; Admin Dose 1 UNIT; Start 01/17/19 at 13:00 Miscellaneous Information 1 ea NOTE XX ; Start 01/17/19 at 11:00 Glucose (Glutose) 15 gm Q15M PRN PO DECREASED GLUCOSE; Start 01/17/19 at 11:00 Glucose (Glutose) 22.5 gm Q15M PRN PO DECREASED GLUCOSE; Start 01/17/19 at 11:00 Dextrose (D50w Syringe) 25 ml Q15M PRN IV DECREASED GLUCOSE; Start 01/17/19 at 11:00 Dextrose (D50w Syringe) 50 ml Q15M PRN IV DECREASED GLUCOSE; Start 01/17/19 at 11:00 Glucagon (Glucagen) 1 mg Q15M PRN IM DECREASED GLUCOSE; Start 01/17/19 at 11:00 Glucose (Glutose) 15 gm Q15M PRN BUCCAL DECREASED GLUCOSE; Start 01/17/19 at 11:00 Famotidine (Pepcid Iv) 20 mg DAILY IV Last administered on 01/19/19 09:40; Admin Dose 20 MG; Start 01/18/19 at 09:00 Collagenase (Santyl) 1 applic DAILY TOP Last administered on 01/19/19 09:40; Admin Dose 1 APPLIC; Start 01/17/19 at 17:00 Fentanyl 100 ml @ 2.5 mls/hr TITRATE IV Last administered on 01/19/19 23:06; Admin Dose 7.5 MLS/HR; Start 01/17/19 at 21:30 Piperacillin Sod/ Tazobactam Sod 50 ml @ 100 mls/hr Q6 IVPB Last administered on 01/20/19 05:39; Admin Dose 100 MLS/HR; Start 01/18/19 at 12:00 Morphine Sulfate (morphine) 1 mg Q3H PRN IV SEVERE PAIN LEVEL 7-10; Start 01/18/19 at 19:00 Hydromorphone HCl (Dilaudid SHADING PAINTER) 0.2 MG/HR CONTINUOUS RATE ... Q2 IV Last administered on 01/20/19 02:19; Admin Dose 6 MG; Start 01/18/19 at 19:00 Dextrose 1,000 ml @ 100 mls/hr Q10H IV Last administered on 01/19/19 21:02; Admin Dose 100 MLS/HR; Start 01/19/19 at 08:30 Vancomycin/Sodium Chloride 250 ml @ 125 mls/hr Q24H IVPB Last administered on 01/19/19 16:00; Admin Dose 125 MLS/HR; Start 01/19/19 at 15:00 PATSY LEVY MD Jan 20, 2019 06:43
--- NOTE | 2019-01-20 07:46 | CONS ---
Consult Date/Type/Reason Admit Date/Time Jan 16, 2019 at 23:33 Initial Consult Date 01/17/19 Type of Consultation: cv Requesting Provider: NINA HOLT Date/Time of Note DATE: 01/20/19 TIME: 07:45 Subjective Interventional cardiology follow-up progress note/ Subjective: Discussed with the staff and physicians. .Telemetry was reviewed. Patient remains in sinus rhythm Patient remains intubated in the ICU no chest pain is reported + abd pain Objective: General: Intubated on the vent HEENT: NC/AT. Eyes are closed NECK: no stridor. CV: RRR. systolic murmur; no gallop or rubs. PULM: no wheezing + rhonchi. GI: Distended.+ Tender to palpation Extremity: trace B/L LE edema. no clubbing. neuro: Comfortably sleeping/sedated Psych: calm rectal: deferred : status post Valadez catheter in place . EKG normal sinus rhythm poor R wave progression consistent with possible anterior infarct. ST-T wave abnormality suggestive of inferolateral ischemia Echocardiogram done January 17 which was personally reviewed shows: Lower limits of normal systolic function. Normal left ventricular cavity size. Mild concentric left ventricular hypertrophy. Ejection fraction is visually estimated at 45 %. Tissue Doppler/Mitral Doppler indices are consistent with impaired relaxation (Stage I diastolic dysfunction). These segments of the LV are hypokinetic apical anterior segment and apical septum. Mitral valve leaflets appear mildly thickened. Mild mitral annular calcification. Trace mitral regurgitation. Aortic valve Max velocity 2.28 m/sec. Max PG 21.00 mmHg. Mean PG 10.00 mmHg. Aortic sclerosis without significant stenosis. Trace aortic valve regurgitation. Normal appearance of the tricuspid valve. Estimated peak PA systolic pressure 79 mmHg. There is moderate tricuspid regurgitation. Objective Vitals Vital Signs Date Temp Pulse Resp B/P (MAP) Pulse Ox O2 O2 Flow FiO2 Time Delivery Rate 01/20/19 65 20 114/73 100 Mechanical 06:00 (87) Ventilator 01/20/19 30 05:10 01/20/19 97.9 04:00 Intake and Output 01/19/19 01/19/19 01/20/19 1515:00 23:00 07:00 IntakeIntake Total 685.0 ml 1015.232 ml 1471.36 ml OutputOutput Total 260 ml 540 ml 450 ml BalanceBalance 425.0 ml 475.232 ml 1021.36 ml Results/Medications Result Diagram: 01/19/19 1848 01/19/19 1848 Results 24 hrs Laboratory Tests Test 01/19/19 09:47 01/19/19 10:04 01/19/19 12:30 01/19/19 13:20 Bedside Glucose 106 140 Lab Scanned REFERENCE LAB Report Blood Gas Blood arterial Specimen Source Arterial Blood 01/19/2019 12:15 Date Drawn :00 PM Arterial Blood 7.364 pH (Temp corrected) Arterial Blood 30.0 L pCO2 (Temp correct) Arterial Blood 153.6 H pO2 (Temp corrected) Arterial Blood 16.7 L HCO3 Arterial Blood -7.8 L Base Excess Arterial Blood 98.4 H Oxygen Saturatio n Jose Test ACCEPTAB Arterial Blood Right Radial Gas Puncture Site Arterial 0.3 Blood Carboxyhem oglobin Arterial Blood 0.3 Methemoglobin Blood Gas A-a O2 97.1 H Differential Oxyhemoglobin 97.8 Percent Blood Gas 37.0 Temperature Blood Gas Actual 16 Respiration Rate Blood Gas VENT - CPAP Modality FiO2 40.0 Blood Gas Low 5.0 PEEP Setting Blood Gas 10 Pressure Support Blood Gas TM Notified Whom Blood Gas 01/19/2019 12:33 Notified Time :00 PM Test 01/19/19 13:45 01/19/19 14:38 01/19/19 17:22 01/19/19 18:48 Urine Color YELLOW Urine Clarity TURBID A Urine pH 5.0 Urine Specific 1.017 [place] Urine Ketones NEGATIVE Urine Nitrite NEGATIVE Urine Bilirubin NEGATIVE Urine NEGATIVE Urobilinogen Urine Leukocyte 3+ H Esterase Urine > 182 H Microscopic RBC Urine > 182 H Microscopic WBC Urine Bacteria MANY A Urine Hemoglobin 3+ H Urine Random 38.00 Creatinine Urine Random 33 Sodium Urine Glucose NEGATIVE Urine Total 127.0 H Protein Sodium Level 151 H 150 H Potassium Level 3.8 3.5 Chloride Level 121 H 122 H Carbon Dioxide 17 L 17 L Level Anion Gap 13 11 Blood Urea 55 H 52 H Nitrogen Creatinine 1.61 H 1.54 H Est Glomerular 33 L 35 L Filtrat Rate mL/min Glucose Level 125 113 Calcium Level 8.5 8.2 L Bedside Glucose 133 White Blood 7.8 # Count Red Blood Count 2.51 L Hemoglobin 7.2 L Hematocrit 22.5 L Mean Corpuscular 89.6 Volume Mean Corpuscular 28.7 L Hemoglobin Mean Corpuscular 32.0 Hemoglobin Helen nt Red Cell 16.0 H Distribution Width Platelet Count 90 #L Mean Platelet 9.6 Volume Immature 5.000 H Granulocytes % Neutrophils % 68.5 Segmented 74 Neutrophils % (Manual) Band Neutrophils 1 % (Manual) Lymphocytes % 17.7 Lymphocytes % 10 L (Manual) Monocytes % 7.1 Monocytes % 6 (Manual) Eosinophils % 1.4 Eosinophils % 6 (Manual) Basophils % 0.3 Basophils % 1 (Manual) Myelocytes % 2 H (Manual) Nucleated Red 1.0 H Blood Cells % Immature 0.390 H Granulocytes # Neutrophils # 5.3 Neutrophils # 5.8 (Manual) Band Neutrophils 0.0 # Lymphocytes 0.7 L (Manual) Lymphocytes # 1.4 Monocytes # 0.6 Monocytes # 0.4 (Manual) Eosinophils # 0.1 Basophils # 0.0 Basophils # 0.0 (Manual) Myelocytes # 0.1 H Nucleated Red 0.1 H Blood Cells # Anisocytosis 1+ Microcytosis 1+ Test 01/19/19 21:01 01/20/19 00:43 01/20/19 04:57 01/20/19 05:17 Bedside Glucose 139 125 131 Lab Scanned BLOOD TRANSFUSI Report ON Home Meds Reported Medications Gabapentin* (Gabapentin*) 100 Mg Capsule, 100 MG PO TID, #90 CAP 01/20/18 Medications Current Medications Norepinephrine 250 ml @ 1.875 mls/ hr TITRATE IV ; Start 01/16/19 at 22:00 Vancomycin HCl (Vanco Iv Per Pharmacy) VANCOMYCIN PER PHARMACY PER PROTOCOL XX ; Start 01/16/19 at 23:30 Albuterol (Ventolin Hfa) 4 puff Q2H RESP THERAPY PRN INH SHORTNESS OF BREATH; Start 01/17/19 at 00:00 Ipratropium [place] (Atrovent Hfa) 4 puff Q2H RESP THERAPY PRN INH SHORTNESS OF BREATH; Start 01/17/19 at 00:00 Acetaminophen (Tylenol Liquid) 650 mg Q6H PRN PO PAIN LEVEL 1-3 OR FEVER; Start 01/17/19 at 00:00 Propofol 100 ml @ 1.698 mls/ hr Q12H IV Last administered on 01/20/19at 03:18; Admin Dose 16.98 MLS/HR; Start 01/17/19 at 10:30 Diagnostic Test (Pha) (Accu-Chek) 1 ea 02 XX Last administered on 01/19/19at 02:46; Admin Dose 1 EA; Start 01/18/19 at 02:00 Insulin Aspart (Novolog Insulin Pen) NOVOLOG *MILD* ALGORI... Q4 SC Last administered on 01/18/19at 12:32; Admin Dose 1 UNIT; Start 01/17/19 at 13:00 Miscellaneous Information 1 ea NOTE XX ; Start 01/17/19 at 11:00 Glucose (Glutose) 15 gm Q15M PRN PO DECREASED GLUCOSE; Start 01/17/19 at 11:00 Glucose (Glutose) 22.5 gm Q15M PRN PO DECREASED GLUCOSE; Start 01/17/19 at 11:00 Dextrose (D50w Syringe) 25 ml Q15M PRN IV DECREASED GLUCOSE; Start 01/17/19 at 11:00 Dextrose (D50w Syringe) 50 ml Q15M PRN IV DECREASED GLUCOSE; Start 01/17/19 at 11:00 Glucagon (Glucagen) 1 mg Q15M PRN IM DECREASED GLUCOSE; Start 01/17/19 at 11:00 Glucose (Glutose) 15 gm Q15M PRN BUCCAL DECREASED GLUCOSE; Start 01/17/19 at 11:00 Famotidine (Pepcid Iv) 20 mg DAILY IV Last administered on 01/19/19at 09:40; Admin Dose 20 MG; Start 01/18/19 at 09:00 Collagenase (Santyl) 1 applic DAILY TOP Last administered on 01/19/19at 09:40; Admin Dose 1 APPLIC; Start 01/17/19 at 17:00 Fentanyl 100 ml @ 2.5 mls/hr TITRATE IV Last administered on 01/19/19at 23:06; Admin Dose 7.5 MLS/HR; Start 01/17/19 at 21:30 Piperacillin Sod/ Tazobactam Sod 50 ml @ 100 mls/hr Q6 IVPB Last administered on 01/20/19at 05:39; Admin Dose 100 MLS/HR; Start 01/18/19 at 12:00 Morphine Sulfate (morphine) 1 mg Q3H PRN IV SEVERE PAIN LEVEL 7-10; Start 01/18/19 at 19:00 Hydromorphone HCl (Dilaudid Y[place]) 0.2 MG/HR CONTINUOUS RATE ... Q2 IV Last administered on 01/20/19at 02:19; Admin Dose 6 MG; Start 01/18/19 at 19:00 Dextrose 1,000 ml @ 100 mls/hr Q10H IV Last administered on 01/19/19at 21:02; Admin Dose 100 MLS/HR; Start 01/19/19 at 08:30 Vancomycin/Sodium Chloride 250 ml @ 125 mls/hr Q24H IVPB Last administered on 01/19/19at 16:00; Admin Dose 125 MLS/HR; Start 01/19/19 at 15:00 Assessment/Plan Hospital Course (Demo Recall) 1. Non-ST elevation myocardial infarction: At this point is unclear type I or type II 2. Shock multifactorial mostly septic 3. Severe sepsis 4. Severe anemia status post transfusions 5. Perforated viscus 6. Lactic acidosis 7. Renal failure probably acute 8. Cardiomyopathy 9. Incomplete data 10. Hypoxic respiratory failure status post intubation underwent 11. hypo K Recommendations: Follow with multiple pci security consultant recommendations. Continue with supportive care. transfusion prn pt is NPO. Consider starting TPN Unable to give aspirin given her severe anemia . Transfusions as needed Continue with vent support respiratory care Follow-up with general surgery recommendation. Patient most likely will need exploratory laparotomy. Obviously because of her multiple comorbidities she would be at high risk of cardiovascular event but no further cardiac workup would be indicated or beneficial to the patient. Continue with ICU care. More than 35 minutes of critical care time was for management treatment is critically ill patient excluding any procedures Thank you for his referral. We will continue to follow along with you. EMILY LARA MD [facility] EMILY LARA MD Jan 20, 2019 07:46
--- NOTE | 2019-01-20 09:06 | PN ---
DATE: 01/20/2019 SUBJECTIVE: The patient remains critically ill off pressor support. The patient is on full respirat ory support. 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 No other events noted. OBJECTIVE: VITAL SIGNS: Blood pressure is 120/81, pulse 69, respirations 20, temperature 98.2. HEENT: Head is normocephalic. NECK: Supple. HEART: Regular rate. LUNGS: Show diminished breath sounds at base. ABDOMEN: Soft, nontender to palpation without rebound or guarding. EXTREMITIES: Negative for clubbing, cyanosis, no edema. DERMATOLOGIC: No rashes. MUSCULOSKELETAL: No joint effusion. NEUROLOGIC: No change in exam. MEDICATIONS: Reviewed. LABORATORY DATA: Shows sodium 148, potassium 3.3, chloride 123, bicarbonate 14, BUN 43, creatinine 1 .40. CBC was reviewed. The patient's ABG was reviewed. Urinalysis was reviewed, shows a phenol les s than 1%, a protein creatinine ratio approximately 4 grams per gram of creatinine. INR was reviewed . Cultures reviewed. IMAGING STUDIES: Reviewed. Chest x-ray was reviewed. ASSESSMENT AND PLAN: 1. Nonoliguric acute kidney injury with unknown baseline creatinine. Etiology of acute kidney injur y is secondary to acute tubular necrosis due to volume depletion, shock, NSAID use. The patient's re nal function has been improving with IV fluids and supportive care. At this point, continue current treatment plan, renally dose all meds, avoid nephrotoxins. 2. Hypernatremia. The patient has free water deficit approximately 2 liters. Continue hypotonic fl uids. 3. Hypokalemia. We will replete potassium chloride. 4. Metabolic acidosis secondary to acute kidney injury, lactic acidosis, improving. Continue to mon itor. ABG was reviewed. No need for bicarbonate drip at this time, patient is compensated. 5. Sepsis, status post shock secondary to pneumoperitoneum, urinary tract infection. Continue broad spectrum antibiotics, continue IV fluids. 6. Ventilator-dependent respiratory failure. Vent settings and ABG was reviewed. Continue to monit or. 7. Perforated viscus. The patient seen by general surgery. Follow up recommendations. 8. Leukocytosis from sepsis, anemia, improving. Continue to monitor. 9. Non-ST elevation myocardial infarction type 2, likely from severe sepsis. Continue to monitor. Follow up with cardiology. 10. Acute encephalopathy. Etiology is toxic metabolic. 11. Decubitus wound. Continue wound care. Please note I spent over 30 minutes of critical care time with this patient. Dictated By: SHAW OLMSTEAD DO NR/CRISTY Conf#: [id number] DID#: [id number] CC: BLAISE MARTINS MD;*EndCC*
[2019-01-20] MEDS ORDERED: TPN 1,000 ML IV SCH (09:39)
[2019-01-20] MEDS: COLLAGENASE 5 GM (UD JAR) TOP SCH (09:52)
[2019-01-20] MEDS: POTASSIUM CHLORIDE 100 ML IVPB SCH ×2 (09:52→12:14)
[2019-01-20] MEDS: FAMOTIDINE 20 MG INJ IV SCH (09:59)
[2019-01-20] MEDS ORDERED: FAT EMULSION 20% 250 ML IV SCH (10:00)
--- NOTE | 2019-01-20 10:02 | CONS ---
Consult Date/Type/Reason Admit Date/Time Jan 16, 2019 at 23:33 Initial Consult Date 01/17/19 Type of Consult Pulmonary Requesting Provider: NINA HOLT Date/Time of Note DATE: 01/20/19 TIME: 10:01 Subjective Patient stable this morning. No new events overnight. No vasopressors. Surgery is no longer an option at this point. Patient had tolerated CPAP weaning trial yesterday extubation was held pending final decision regarding surgery. Objective Vital Signs Date Temp Pulse Resp B/P (MAP) Pulse Ox O2 O2 Flow FiO2 Time Delivery Rate 01/20/19 65 08:00 01/20/19 98.2 08:00 01/20/19 30 08:00 01/20/19 20 120/81 98 Mechanical 07:45 (94) Ventilator Intake and Output 01/19/19 01/19/19 01/20/19 1515:00 23:00 07:00 IntakeIntake Total 1449.5 ml 1289.732 ml 1471.36 ml OutputOutput Total 260 ml 540 ml 500 ml BalanceBalance 1189.5 ml 749.732 ml 971.36 ml Exam PHYSICAL EXAMINATION: GENERAL: Chronically ill appearing lady on mechanical ventilation. VITAL SIGNS: NECK: Supple, no JVD or lymphadenopathy. CARDIAC: S1, S2, no added sounds or murmurs. CHEST: Diminished air entry bilaterally. ABDOMEN: Mildly distended. EXTREMITIES: No cyanosis, clubbing, edema. NEUROLOGIC: Unable to assess. Vent Setting Ventilator Support Mode: AC Fraction of Inspired Oxygen pe: 30 Positive End Expiratory Pressu: 5.0 Results/Medications Result Diagram: 01/20/19 0747 01/20/19 0747 Results 24 hrs Laboratory Tests Test 01/19/19 10:04 01/19/19 12:30 01/19/19 13:20 01/19/19 13:45 Lab Scanned REFERENCE LAB Report Blood Gas Blood arterial Specimen Source Arterial Blood 01/19/2019 12:15 Date Drawn :00 PM Arterial Blood 7.364 pH (Temp corrected) Arterial Blood 30.0 L pCO2 (Temp correct) Arterial Blood 153.6 H pO2 (Temp corrected) Arterial Blood 16.7 L HCO3 Arterial Blood -7.8 L Base Excess Arterial Blood 98.4 H Oxygen Saturatio n Jose Test ACCEPTAB Arterial Blood Right Radial Gas Puncture Site Arterial 0.3 Blood Carboxyhem oglobin Arterial Blood 0.3 Methemoglobin Blood Gas A-a O2 97.1 H Differential Oxyhemoglobin 97.8 Percent Blood Gas 37.0 Temperature Blood Gas Actual 16 Respiration Rate Blood Gas VENT - CPAP Modality FiO2 40.0 Blood Gas Low 5.0 PEEP Setting Blood Gas 10 Pressure Support Blood Gas TM Notified Whom Blood Gas 01/19/2019 12:33 Notified Time :00 PM Bedside Glucose 140 Urine Color YELLOW Urine Clarity TURBID A Urine pH 5.0 Urine Specific 1.017 [place] Urine Ketones NEGATIVE Urine Nitrite NEGATIVE Urine Bilirubin NEGATIVE Urine NEGATIVE Urobilinogen Urine Leukocyte 3+ H Esterase Urine > 182 H Microscopic RBC Urine > 182 H Microscopic WBC Urine Bacteria MANY A Urine Hemoglobin 3+ H Urine Random 38.00 Creatinine Urine Random 33 Sodium Urine Glucose NEGATIVE Urine Total 127.0 H Protein Test 01/19/19 14:38 01/19/19 17:22 01/19/19 18:48 01/19/19 21:01 Sodium Level 151 H 150 H Potassium Level 3.8 3.5 Chloride Level 121 H 122 H Carbon Dioxide 17 L 17 L Level Anion Gap 13 11 Blood Urea 55 H 52 H Nitrogen Creatinine 1.61 H 1.54 H Est Glomerular 33 L 35 L Filtrat Rate mL/min Glucose Level 125 113 Calcium Level 8.5 8.2 L Bedside Glucose 133 139 White Blood 7.8 # Count Red Blood Count 2.51 L Hemoglobin 7.2 L Hematocrit 22.5 L Mean Corpuscular 89.6 Volume Mean Corpuscular 28.7 L Hemoglobin Mean Corpuscular 32.0 Hemoglobin Helen nt Red Cell 16.0 H Distribution Width Platelet Count 90 #L Mean Platelet 9.6 Volume Immature 5.000 H Granulocytes % Neutrophils % 68.5 Segmented 74 Neutrophils % (Manual) Band Neutrophils 1 % (Manual) Lymphocytes % 17.7 Lymphocytes % 10 L (Manual) Monocytes % 7.1 Monocytes % 6 (Manual) Eosinophils % 1.4 Eosinophils % 6 (Manual) Basophils % 0.3 Basophils % 1 (Manual) Myelocytes % 2 H (Manual) Nucleated Red 1.0 H Blood Cells % Immature 0.390 H Granulocytes # Neutrophils # 5.3 Neutrophils # 5.8 (Manual) Band Neutrophils 0.0 # Lymphocytes 0.7 L (Manual) Lymphocytes # 1.4 Monocytes # 0.6 Monocytes # 0.4 (Manual) Eosinophils # 0.1 Basophils # 0.0 Basophils # 0.0 (Manual) Myelocytes # 0.1 H Nucleated Red 0.1 H Blood Cells # Anisocytosis 1+ Microcytosis 1+ Test 01/20/19 00:43 01/20/19 04:57 01/20/19 05:17 01/20/19 07:47 Bedside Glucose 125 131 Lab Scanned BLOOD TRANSFUSI Report ON White Blood 8.0 Count Red Blood Count 2.93 L Hemoglobin 8.5 L Hematocrit 26.5 L Mean Corpuscular 90.4 Volume Mean Corpuscular 29.0 Hemoglobin Mean Corpuscular 32.1 Hemoglobin Helen nt Red Cell 15.7 H Distribution Width Platelet Count 108 L Mean Platelet 10.4 Volume Immature 5.500 H Granulocytes % Neutrophils % Lymphocytes % Monocytes % Eosinophils % Basophils % Nucleated Red 0.5 H Blood Cells % Immature 0.440 H Granulocytes # Neutrophils # Lymphocytes # Monocytes # Eosinophils # Basophils # Nucleated Red Blood Cells # Sodium Level 148 H Potassium Level 3.3 L Chloride Level 123 H Carbon Dioxide 14 L Level Anion Gap 11 Blood Urea 43 H Nitrogen Creatinine 1.40 H Est Glomerular 39 L Filtrat Rate mL/min Glucose Level 100 Calcium Level 8.4 Phosphorus Level 3.8 Magnesium Level 2.1 Total Bilirubin 0.1 L Direct Bilirubin 0.00 Indirect 0.1 Bilirubin Aspartate Amino 35 Transf (AST/SGOT ) Alanine 72 H Aminotransferase (ALT/SGPT) Alkaline 133 H Phosphatase Total Protein 5.2 L Albumin 2.3 L Globulin 2.90 Albumin/Globulin 0.79 Ratio Test 01/20/19 09:52 Bedside Glucose 112 Medications Current Medications Norepinephrine 250 ml @ 1.875 mls/ hr TITRATE IV ; Start 01/16/19 at 22:00 Vancomycin HCl (Vanco Iv Per Pharmacy) VANCOMYCIN PER PHARMACY PER PROTOCOL XX ; Start 01/16/19 at 23:30 Albuterol (Ventolin Hfa) 4 puff Q2H RESP THERAPY PRN INH SHORTNESS OF BREATH; Start 01/17/19 at 00:00 Ipratropium [place] (Atrovent Hfa) 4 puff Q2H RESP THERAPY PRN INH SHORTNESS OF BREATH; Start 01/17/19 at 00:00 Acetaminophen (Tylenol Liquid) 650 mg Q6H PRN PO PAIN LEVEL 1-3 OR FEVER; Start 01/17/19 at 00:00 Propofol 100 ml @ 1.698 mls/ hr Q12H IV Last administered on 01/20/19at 09:56; Admin Dose 1.698 MLS/HR; Start 01/17/19 at 10:30 Diagnostic Test (Pha) (Accu-Chek) 1 ea 02 XX Last administered on 01/19/19at 02:46; Admin Dose 1 EA; Start 01/18/19 at 02:00 Insulin Aspart (Novolog Insulin Pen) NOVOLOG *MILD* ALGORI... Q4 SC Last administered on 01/18/19at 12:32; Admin Dose 1 UNIT; Start 01/17/19 at 13:00 Miscellaneous Information 1 ea NOTE XX ; Start 01/17/19 at 11:00 Glucose (Glutose) 15 gm Q15M PRN PO DECREASED GLUCOSE; Start 01/17/19 at 11:00 Glucose (Glutose) 22.5 gm Q15M PRN PO DECREASED GLUCOSE; Start 01/17/19 at 11:00 Dextrose (D50w Syringe) 25 ml Q15M PRN IV DECREASED GLUCOSE; Start 01/17/19 at 11:00 Dextrose (D50w Syringe) 50 ml Q15M PRN IV DECREASED GLUCOSE; Start 01/17/19 at 11:00 Glucagon (Glucagen) 1 mg Q15M PRN IM DECREASED GLUCOSE; Start 01/17/19 at 11:00 Glucose (Glutose) 15 gm Q15M PRN BUCCAL DECREASED GLUCOSE; Start 01/17/19 at 11:00 Famotidine (Pepcid Iv) 20 mg DAILY IV Last administered on 01/20/19at 09:59; Admin Dose 20 MG; Start 01/18/19 at 09:00 Collagenase (Santyl) 1 applic DAILY TOP Last administered on 01/20/19at 09:52; Admin Dose 1 APPLIC; Start 01/17/19 at 17:00 Fentanyl 100 ml @ 2.5 mls/hr TITRATE IV Last administered on 01/19/19at 23:06; Admin Dose 7.5 MLS/HR; Start 01/17/19 at 21:30 Piperacillin Sod/ Tazobactam Sod 50 ml @ 100 mls/hr Q6 IVPB Last administered on 01/20/19at 05:39; Admin Dose 100 MLS/HR; Start 01/18/19 at 12:00 Morphine Sulfate (morphine) 1 mg Q3H PRN IV SEVERE PAIN LEVEL 7-10; Start 01/18/19 at 19:00 Hydromorphone HCl (Dilaudid LEGAL TRANSCRIPTIONIST) 0.2 MG/HR CONTINUOUS RATE ... Q2 IV Last administered on 01/20/19at 02:19; Admin Dose 6 MG; Start 01/18/19 at 19:00 Dextrose 1,000 ml @ 100 mls/hr Q10H IV Last administered on 01/19/19at 21:02; Admin Dose 100 MLS/HR; Start 01/19/19 at 08:30 Vancomycin/Sodium Chloride 250 ml @ 125 mls/hr Q24H IVPB Last administered on 01/19/19at 16:00; Admin Dose 125 MLS/HR; Start 01/19/19 at 15:00 Potassium Chloride 100 ml @ 50 mls/hr Q2H IVPB Last administered on 01/20/19at 09:52; Admin Dose 50 MLS/HR; Start 01/20/19 at 09:00; Stop 01/20/19 at 12:59 Diagnostic Test (Pha) (Accu-Chek) 1 ea Q4 XX ; Start 01/20/19 at 13:00; Status UNV Total Parenteral Nutrition 1,000 ml @ 0 mls/hr Q0M IV ; Start 01/20/19 at 09: 39; Status UNV Fat Emulsion Intravenous 250 ml @ 10.4 mls/hr DAILY IV ; Start 01/20/19 at 10:00; Status UNV Miscellaneous Information (* Miscellaneous Pharmacy Order) 1 ea ONCE ONCE XX ; Start 01/20/19 at 10:00; Stop 01/20/19 at 10:01; Status UNV Assessment/Plan Hospital Course (Demo Recall) IMPRESSION AND PLAN: 1. Severe anemia, questionable ongoing chronic bleeding. 2. Marked metabolic acidosis. 3. Severe sepsis. Perforated viscus. Status post acute abdomen patient managed medically not a surgical candidate 4. Encephalopathy, toxic metabolic. 5. History of paraplegia per chart. 6. Renal failure, likely prerenal. Significant metabolic acidosis 7. Non-ST elevation myocardial infarction, likely secondary to hypoperfusion. 8. Hypo-kalemia Plan 1. Continued vent support. CPAP trial this morning, extubate if stable 2. Transfusion of packed red blood cells. 3. Broad-spectrum antibiotics. 4. Increase free water. Replace electro lites. 5. Perforated viscus patient currently stable no plan for surgery at present. 6. DVT and GI prophylaxis. Critical care time 40 minutes. Appreciate palliative care evaluation. HIWOT ODELL MD, [facility] Jan 20, 2019 10:02
[2019-01-20] MEDS ORDERED: SODIUM BICARBONATE (IV ADD) 100 MEQ in DEXTROSE 5% 1,000 ML IV SCH (11:00)
[2019-01-20] MEDS: DEXTROSE 5% 1,000 ML IV SCH ×2 (12:15→18:06)
--- NOTE | 2019-01-20 12:38 | PN ---
Date/Time of Note Date/Time of Note DATE: 01/20/19 TIME: 12:31 Assessment/Plan Lines/Catheters IV Catheter Type (from Nrs): Central Line Valadez in Place (from Nrs): Yes Assessment/Plan Chief Complaint/Hosp Course 1. Pneumoperitoneum with possible perforated hollow viscus: -Had lengthy discussion with patient's daughter regarding surgical options (explore lap) and high surgical risk, at this time, decision is to treat conservatively with close monitoring -CT abdomen oral/iv/rectal for further characterization -Supportive measures -N.p.o.> parenteral nutrition -Pain management -Continue antibiotics 2. 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 UTI: 2/ #2 -abx per sensitivity -frequent bladder emptying/cath care 4. Hypochromic anemia: -Monitor and transfuse as needed 5. Sepsis, leukocytosis: WBC normalized -Supportive (antibiotics, fluids,etc) -As above 6. Electrolyte imbalance: -Optimize electrolytes 7. JACKIE: improved -Limit nephrotoxic meds -Renally dose meds -Per renal 8. Thrombocytopenia mild, -Monitor 9. Transaminitis: Likely / #5 -Trend 10. NSTEMI: -Cardiac optimization per cards Thank you. Patient seen and examined in collaboration with Dr. Osei Sanford. Subjective 24 Hr Interval Summary Awake. Comfortable. Vent weaning today. No fevers, labored breathing, congested cough, vomiting, diarrhea, sz, rash. Exam/Review of Systems Vital Signs Vitals Vital Signs Date Temp Pulse Resp B/P (MAP) Pulse Ox O2 O2 Flow FiO2 Time Delivery Rate 01/20/19 99 2.0 12:30 01/20/19 65 08:00 01/20/19 98.2 08:00 01/20/19 30 08:00 01/20/19 20 120/81 Mechanical 07:45 (94) Ventilator Intake and Output 01/19/19 01/19/19 01/20/19 1515:00 23:00 07:00 IntakeIntake Total 1449.5 ml 1289.732 ml 1471.36 ml OutputOutput Total 260 ml 540 ml 500 ml BalanceBalance 1189.5 ml 749.732 ml 971.36 ml Exam Free Text/Dictation Constitutional: Sedated well developed; No distress Psych: nl mood/affect, anxiety (Minimal) Head: normocephalic, atraumatic Eyes: nl conjunctiva, EOMI, nl lids, nl sclera ENMT: nl external ears & nose, nl lips & teeth, mucosa pink and moist, intubate d Neck: supple, non-tender; No jvd Respiratory: normal air movement; No congested cough, No labored breathing Cardiovascular: regular rate and rhythm, nl pulses; No edema Gastrointestinal: soft, distended, tender (Diffuse-improved) Genitourinary - Female: nl external genitalia Musculoskeletal: nl extremities to inspection, nl gait and stance Extremities: normal pulses Neurological: No nl speech (Intubated), no normal strength (sedated) Skin: No rash or lesions Lymph: nl lymph nodes Results Result Diagram: 01/20/19 0747 01/20/19 1028 MASSIMO WATKINS NP Jan 20, 2019 12:38
--- NOTE | 2019-01-20 14:31 | PN ---
Date/Time of Note Date/Time of Note DATE: 01/20/19 TIME: 14:24 Assessment/Plan VTE Prophylaxis Risk score (from Ns)>0 risk: 11 SCD applied (from [facility]): No SCD contraindicated: other (scds) Pharmacological prophylaxis: other (scds) Lines/Catheters IV Catheter Type (from [facility]): Central Line Central line still needed: Yes (meds) Urinary Cath still in place: Yes Reason Cath still needed: other (indicate) (monitor output) Assessment/Plan Hospital Course Summary Assessment and Plan: Assessment: Profound leukocytosis- resolved Bacteremia UTI- E.coli Profound macrocytic anemia-improving with blood transfusion Coagulopathy Pneumoperitoneum compatible with a perforated hollow viscus Abnormal urinary bladder with a Valadez catheter and gas both within the bladder and the bladder wall 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 Rosenthal Subjective: Course reviewed with nursing staff Patient interviewed and examined All labs, imaging and other results reviewed Pt s/p extubation, awake and alert PHYSICAL EXAMINATION: GENERAL: Ill appearing, awake and alert SKIN: decubitus wounds EARS/NOSE AND THROAT: Ears normal, nose normal, Intubated NECK: Supple, no masses. CHEST: Inspection within normal limits. CARDIOVASCULAR: Heart: Regular rate and rhythm RESPIRATORY: Coarse GASTROINTESTINAL AND LIVER: Abdomen: Soft, non-distended, no hernias, hypoactive/absent bowel sounds. Rectal: Deferred. : f/c in place, query fecal content EXTREMITIES: No cyanosis, clubbing or edema. Result Diagram: 01/20/19 0747 01/20/19 1028 Results 24hrs Laboratory Tests Test 01/19/19 14:38 01/19/19 17:22 01/19/19 18:48 01/19/19 21:01 Sodium Level 151 H 150 H Potassium Level 3.8 3.5 Chloride Level 121 H 122 H Carbon Dioxide 17 L 17 L Level Anion Gap 13 11 Blood Urea 55 H 52 H Nitrogen Creatinine 1.61 H 1.54 H Est Glomerular 33 L 35 L Filtrat Rate mL/min Glucose Level 125 113 Calcium Level 8.5 8.2 L Bedside Glucose 133 139 White Blood 7.8 # Count Red Blood Count 2.51 L Hemoglobin 7.2 L Hematocrit 22.5 L Mean 89.6 Corpuscular Volume Mean 28.7 L Corpuscular Hemoglobin Mean 32.0 Corpuscular Hemoglobin Conc ent Red Cell 16.0 H Distribution Width Platelet Count 90 #L Mean Platelet 9.6 Volume Immature 5.000 H Granulocytes % Neutrophils % 68.5 Segmented 74 Neutrophils % (Manual) Band 1 Neutrophils % (Manual) Lymphocytes % 17.7 Lymphocytes % 10 L (Manual) Monocytes % 7.1 Monocytes % 6 (Manual) Eosinophils % 1.4 Eosinophils % 6 (Manual) Basophils % 0.3 Basophils % 1 (Manual) Myelocytes % 2 H (Manual) Nucleated Red 1.0 H Blood Cells % Immature 0.390 H Granulocytes # Neutrophils # 5.3 Neutrophils # 5.8 (Manual) Band 0.0 Neutrophils # Lymphocytes 0.7 L (Manual) Lymphocytes # 1.4 Monocytes # 0.6 Monocytes # 0.4 (Manual) Eosinophils # 0.1 Basophils # 0.0 Basophils # 0.0 (Manual) Myelocytes # 0.1 H Nucleated Red 0.1 H Blood Cells # Anisocytosis 1+ Microcytosis 1+ Test 01/20/19 00:43 01/20/19 04:57 01/20/19 05:17 01/20/19 07:47 Bedside Glucose 125 131 Lab Scanned BLOOD TRANSFUSI Report ON White Blood 8.0 Count Red Blood Count 2.93 L Hemoglobin 8.5 L Hematocrit 26.5 L Mean 90.4 Corpuscular Volume Mean 29.0 Corpuscular Hemoglobin Mean 32.1 Corpuscular Hemoglobin Conc ent Red Cell 15.7 H Distribution Width Platelet Count 108 L Mean Platelet 10.4 Volume Immature 5.500 H Granulocytes % Neutrophils % Segmented 78 H Neutrophils % (Manual) Band 1 Neutrophils % (Manual) Lymphocytes % Lymphocytes % 10 L (Manual) Reactive 6 H Lymphocytes % (Manual) Monocytes % Monocytes % 3 (Manual) Eosinophils % Basophils % Metamyelocytes 2 H % (manual) Nucleated Red 1 H Blood Cells % Immature 0.440 H Granulocytes # Neutrophils # Neutrophils # 6.2 (Manual) Band 0.0 Neutrophils # Lymphocytes 0.8 (Manual) Lymphocytes # Reactive 0.4 H Lymphocytes # Monocytes # Monocytes # 0.2 L (Manual) Eosinophils # Basophils # Metamyelocytes 0.1 H # Nucleated Red Blood Cells # Platelet SIG DECREASED Estimate Polychromasia 3+ Poikilocytosis 2+ Anisocytosis 2+ Microcytosis 2+ Sodium Level 148 H Potassium Level 3.3 L Chloride Level 123 H Carbon Dioxide 14 L Level Anion Gap 11 Blood Urea 43 H Nitrogen Creatinine 1.40 H Est Glomerular 39 L Filtrat Rate mL/min Glucose Level 100 Calcium Level 8.4 Phosphorus 3.8 Level Magnesium Level 2.1 Total Bilirubin 0.1 L Direct 0.00 Bilirubin Indirect 0.1 Bilirubin Aspartate Amino 35 Transf (AST/SGO T) Alanine 72 H Aminotransferas e (ALT/SGPT) Alkaline 133 H Phosphatase Total Protein 5.2 L Albumin 2.3 L Globulin 2.90 Albumin/Globuli 0.79 n Ratio Test 01/20/19 09:52 01/20/19 10:28 01/20/19 11:00 01/20/19 14:08 Bedside Glucose 112 117 Sodium Level 147 H Potassium Level 3.4 L Chloride Level 119 H Carbon Dioxide 16 L Level Anion Gap 12 Blood Urea 41 H Nitrogen Creatinine 1.33 H Est Glomerular 41 L Filtrat Rate mL/min Glucose Level 93 Calcium Level 8.4 Phosphorus 3.8 Level Magnesium Level 2.1 Total Bilirubin 0.2 Direct 0.00 Bilirubin Indirect 0.2 Bilirubin Aspartate Amino 35 Transf (AST/SGO T) Alanine 73 H Aminotransferas e (ALT/SGPT) Alkaline 137 H Phosphatase Total Protein 5.5 L Albumin 2.4 L Globulin 3.10 Albumin/Globuli 0.77 n Ratio Prealbumin 10.1 L Triglycerides 233 H Level Blood Gas Blood arterial Specimen Source Arterial Blood 01/20/2019 11:18 Date Drawn :01 AM Arterial Blood 7.308 L pH (Temp corrected ) Arterial Blood 32.4 L pCO2 (Temp correct) Arterial Blood 75.9 L pO2 (Temp corrected ) Arterial Blood 15.9 L HCO3 Arterial Blood -9.4 L Base Excess Arterial Blood 93.9 L Oxygen Saturati on Jose Test ACCEPTAB Arterial Blood Right Radial Gas Puncture Site Arterial 0.3 Blood Carboxyhe moglobin Arterial Blood 0.3 Methemoglobin Blood Gas A-a 99.9 H O2 Differential Oxyhemoglobin 93.3 Percent Blood Gas 37.0 Temperature Blood Gas 24 Actual Respiration Rat e Blood Gas VENT - CPAP Modality FiO2 30.0 Blood Gas Low 5.0 PEEP Setting Blood Gas 10 Pressure Support Blood Gas TM Notified Whom Blood Gas 01/20/2019 11:46 Notified Time :51 AM Exam/Review of Systems Exam Vitals Vital Signs Date Temp Pulse Resp B/P (MAP) Pulse Ox O2 O2 Flow FiO2 Time Delivery Rate 01/20/19 99 2.0 12:30 01/20/19 78 12:00 01/20/19 18 30 11:10 01/20/19 98.2 08:00 01/20/19 120/81 Mechanical 07:45 (94) Ventilator Intake and Output 01/19/19 01/19/19 01/20/19 1515:00 23:00 07:00 IntakeIntake Total 1449.5 ml 1289.732 ml 1471.36 ml OutputOutput Total 260 ml 540 ml 500 ml BalanceBalance 1189.5 ml 749.732 ml 971.36 ml Results Results 24hrs Laboratory Tests Test 01/19/19 14:38 01/19/19 17:22 01/19/19 18:48 01/19/19 21:01 Sodium Level 151 H 150 H Potassium Level 3.8 3.5 Chloride Level 121 H 122 H Carbon Dioxide 17 L 17 L Level Anion Gap 13 11 Blood Urea 55 H 52 H Nitrogen Creatinine 1.61 H 1.54 H Est Glomerular 33 L 35 L Filtrat Rate mL/min Glucose Level 125 113 Calcium Level 8.5 8.2 L Bedside Glucose 133 139 White Blood 7.8 # Count Red Blood Count 2.51 L Hemoglobin 7.2 L Hematocrit 22.5 L Mean 89.6 Corpuscular Volume Mean 28.7 L Corpuscular Hemoglobin Mean 32.0 Corpuscular Hemoglobin Conc ent Red Cell 16.0 H Distribution Width Platelet Count 90 #L Mean Platelet 9.6 Volume Immature 5.000 H Granulocytes % Neutrophils % 68.5 Segmented 74 Neutrophils % (Manual) Band 1 Neutrophils % (Manual) Lymphocytes % 17.7 Lymphocytes % 10 L (Manual) Monocytes % 7.1 Monocytes % 6 (Manual) Eosinophils % 1.4 Eosinophils % 6 (Manual) Basophils % 0.3 Basophils % 1 (Manual) Myelocytes % 2 H (Manual) Nucleated Red 1.0 H Blood Cells % Immature 0.390 H Granulocytes # Neutrophils # 5.3 Neutrophils # 5.8 (Manual) Band 0.0 Neutrophils # Lymphocytes 0.7 L (Manual) Lymphocytes # 1.4 Monocytes # 0.6 Monocytes # 0.4 (Manual) Eosinophils # 0.1 Basophils # 0.0 Basophils # 0.0 (Manual) Myelocytes # 0.1 H Nucleated Red 0.1 H Blood Cells # Anisocytosis 1+ Microcytosis 1+ Test 01/20/19 00:43 01/20/19 04:57 01/20/19 05:17 01/20/19 07:47 Bedside Glucose 125 131 Lab Scanned BLOOD TRANSFUSI Report ON White Blood 8.0 Count Red Blood Count 2.93 L Hemoglobin 8.5 L Hematocrit 26.5 L Mean 90.4 Corpuscular Volume Mean 29.0 Corpuscular Hemoglobin Mean 32.1 Corpuscular Hemoglobin Conc ent Red Cell 15.7 H Distribution Width Platelet Count 108 L Mean Platelet 10.4 Volume Immature 5.500 H Granulocytes % Neutrophils % Segmented 78 H Neutrophils % (Manual) Band 1 Neutrophils % (Manual) Lymphocytes % Lymphocytes % 10 L (Manual) Reactive 6 H Lymphocytes % (Manual) Monocytes % Monocytes % 3 (Manual) Eosinophils % Basophils % Metamyelocytes 2 H % (manual) Nucleated Red 1 H Blood Cells % Immature 0.440 H Granulocytes # Neutrophils # Neutrophils # 6.2 (Manual) Band 0.0 Neutrophils # Lymphocytes 0.8 (Manual) Lymphocytes # Reactive 0.4 H Lymphocytes # Monocytes # Monocytes # 0.2 L (Manual) Eosinophils # Basophils # Metamyelocytes 0.1 H # Nucleated Red Blood Cells # Platelet SIG DECREASED Estimate Polychromasia 3+ Poikilocytosis 2+ Anisocytosis 2+ Microcytosis 2+ Sodium Level 148 H Potassium Level 3.3 L Chloride Level 123 H Carbon Dioxide 14 L Level Anion Gap 11 Blood Urea 43 H Nitrogen Creatinine 1.40 H Est Glomerular 39 L Filtrat Rate mL/min Glucose Level 100 Calcium Level 8.4 Phosphorus 3.8 Level Magnesium Level 2.1 Total Bilirubin 0.1 L Direct 0.00 Bilirubin Indirect 0.1 Bilirubin Aspartate Amino 35 Transf (AST/SGO T) Alanine 72 H Aminotransferas e (ALT/SGPT) Alkaline 133 H Phosphatase Total Protein 5.2 L Albumin 2.3 L Globulin 2.90 Albumin/Globuli 0.79 n Ratio Test 01/20/19 09:52 01/20/19 10:28 01/20/19 11:00 01/20/19 14:08 Bedside Glucose 112 117 Sodium Level 147 H Potassium Level 3.4 L Chloride Level 119 H Carbon Dioxide 16 L Level Anion Gap 12 Blood Urea 41 H Nitrogen Creatinine 1.33 H Est Glomerular 41 L Filtrat Rate mL/min Glucose Level 93 Calcium Level 8.4 Phosphorus 3.8 Level Magnesium Level 2.1 Total Bilirubin 0.2 Direct 0.00 Bilirubin Indirect 0.2 Bilirubin Aspartate Amino 35 Transf (AST/SGO T) Alanine 73 H Aminotransferas e (ALT/SGPT) Alkaline 137 H Phosphatase Total Protein 5.5 L Albumin 2.4 L Globulin 3.10 Albumin/Globuli 0.77 n Ratio Prealbumin 10.1 L Triglycerides 233 H Level Blood Gas Blood arterial Specimen Source Arterial Blood 01/20/2019 11:18 Date Drawn :01 AM Arterial Blood 7.308 L pH (Temp corrected ) Arterial Blood 32.4 L pCO2 (Temp correct) Arterial Blood 75.9 L pO2 (Temp corrected ) Arterial Blood 15.9 L HCO3 Arterial Blood -9.4 L Base Excess Arterial Blood 93.9 L Oxygen Saturati on Jose Test ACCEPTAB Arterial Blood Right Radial Gas Puncture Site Arterial 0.3 Blood Carboxyhe moglobin Arterial Blood 0.3 Methemoglobin Blood Gas A-a 99.9 H O2 Differential Oxyhemoglobin 93.3 Percent Blood Gas 37.0 Temperature Blood Gas 24 Actual Respiration Rat e Blood Gas VENT - CPAP Modality FiO2 30.0 Blood Gas Low 5.0 PEEP Setting Blood Gas 10 Pressure Support Blood Gas Notified Whom Blood Gas 01/20/2019 11:46 Notified Time :51 AM Medications Medication Current Medications Norepinephrine 250 ml @ 1.875 mls/ hr TITRATE IV ; Start 01/16/19 at 22:00 Vancomycin HCl (Vanco Iv Per Pharmacy) VANCOMYCIN PER PHARMACY PER PROTOCOL XX ; Start 01/16/19 at 23:30 Albuterol (Ventolin Hfa) 4 puff Q2H RESP THERAPY PRN INH SHORTNESS OF BREATH; Start 01/17/19 at 00:00 Ipratropium [place] (Atrovent Hfa) 4 puff Q2H RESP THERAPY PRN INH SHORTNESS OF BREATH; Start 01/17/19 at 00:00 Acetaminophen (Tylenol Liquid) 650 mg Q6H PRN PO PAIN LEVEL 1-3 OR FEVER; Start 01/17/19 at 00:00 Propofol 100 ml @ 1.698 mls/ hr Q12H IV Last administered on 01/20/19at 09:56; Admin Dose 1.698 MLS/HR; Start 01/17/19 at 10:30 Diagnostic Test (Pha) (Accu-Chek) 1 ea 02 XX Last administered on 01/19/19at 02:46; Admin Dose 1 EA; Start 01/18/19 at 02:00 Insulin Aspart (Novolog Insulin Pen) NOVOLOG *MILD* ALGORI... Q4 SC Last administered on 01/18/19at 12:32; Admin Dose 1 UNIT; Start 01/17/19 at 13:00 Miscellaneous Information 1 ea NOTE XX ; Start 01/17/19 at 11:00 Glucose (Glutose) 15 gm Q15M PRN PO DECREASED GLUCOSE; Start 01/17/19 at 11:00 Glucose (Glutose) 22.5 gm Q15M PRN PO DECREASED GLUCOSE; Start 01/17/19 at 11:00 Dextrose (D50w Syringe) 25 ml Q15M PRN IV DECREASED GLUCOSE; Start 01/17/19 at 11:00 Dextrose (D50w Syringe) 50 ml Q15M PRN IV DECREASED GLUCOSE; Start 01/17/19 at 11:00 Glucagon (Glucagen) 1 mg Q15M PRN IM DECREASED GLUCOSE; Start 01/17/19 at 11:00 Glucose (Glutose) 15 gm Q15M PRN BUCCAL DECREASED GLUCOSE; Start 01/17/19 at 11:00 Famotidine (Pepcid Iv) 20 mg DAILY IV Last administered on 01/20/19at 09:59; Admin Dose 20 MG; Start 01/18/19 at 09:00 Collagenase (Santyl) 1 applic DAILY TOP Last administered on 01/20/19at 09:52; Admin Dose 1 APPLIC; Start 01/17/19 at 17:00 Fentanyl 100 ml @ 2.5 mls/hr TITRATE IV Last administered on 01/19/19at 23:06; Admin Dose 7.5 MLS/HR; Start 01/17/19 at 21:30 Piperacillin Sod/ Tazobactam Sod 50 ml @ 100 mls/hr Q6 IVPB Last administered on 01/20/19at 12:14; Admin Dose 100 MLS/HR; Start 01/18/19 at 12:00 Morphine Sulfate (morphine) 1 mg Q3H PRN IV SEVERE PAIN LEVEL 7-10; Start 01/18/19 at 19:00 Hydromorphone HCl (Dilaudid G[employer]) 0.2 MG/HR CONTINUOUS RATE ... Q2 IV Last administered on 01/20/19at 02:19; Admin Dose 6 MG; Start 01/18/19 at 19:00 Vancomycin/Sodium Chloride 250 ml @ 125 mls/hr Q24H IVPB Last administered on 01/19/19at 16:00; Admin Dose 125 MLS/HR; Start 01/19/19 at 15:00 Diagnostic Test (Pha) (Accu-Chek) 1 ea Q4 XX ; Start 01/20/19 at 13:00; Status UNV Total Parenteral Nutrition 1,000 ml @ 0 mls/hr Q0M IV ; Start 01/20/19 at 09:39; Status UNV Miscellaneous Information (* Miscellaneous Pharmacy Order) 1 ea ONCE ONCE XX ; Start 01/20/19 at 10:00; Stop 01/20/19 at 10:01; Status UNV Dextrose 1,000 ml @ 100 mls/hr Q10H IV Last administered on 01/20/19at 12:15; Admin Dose 100 MLS/HR; Start 01/20/19 at 11:30 DAGO STEARNS Jan 20, 2019 14:31
--- NOTE | 2019-01-20 15:13 | PN ---
Date/Time of Note Date/Time of Note DATE: 01/20/19 TIME: 15:09 Assessment/Plan VTE [place]axis [place] [facility] [place]: 11 [place] [facility] [place] Yes Pharmacological prophylaxis: NA/contraindicated Pharm contraindication: surgical contra Assessment/Plan Hospital Course 1. Septic shock: Secondary to pneumoperitoneum, UTI, infected wound versus etiology-improved Culture growing E. coli, blood culture growing gram-negative rods, wound cultures noted Continue broad-spectrum antibiotics of vancomycin and Zosyn Off pressors ID consultation appreciated CT abdomen does show pneumoperitoneum compatible with a perforated hollow viscus, etiology is uncertain, abnormal urinary bladder with possible em physematous cystitis and possible fistula with, Abscess anterior to the bladder is also possible Surgery consultation appreciated, plan is for repeat CT abdomen to assess for perforation Urology consultation appreciated 2. Acute respiratory failure secondary to above Patient extubated today 3. Hypokalemia Replete 4. Macrocytic anemia secondary to elevated reticulocyte count Status post 4 units of packed red blood cells 5. Severe leukocytosis-improved 6. Thrombocytosis-resolved Monitor 7. Acute kidney injury secondary to severe septic shock-improving Continue IV fluids Nephrology consultation appreciated 8. Non-STEMI likely type II secondary to severe sepsis Cardiac consultation appreciated 9. Coagulopathy secondary to DIC 10. Hypernatremia D5W Prophylaxis: SCDs, Protonix Result Diagram: 01/20/19 0747 01/20/19 1028 Results 24hrs Laboratory Tests Test 01/19/19 17:22 01/19/19 18:48 01/19/19 21:01 01/20/19 00:43 Bedside Glucose 133 139 125 White Blood 7.8 # Count Red Blood Count 2.51 L Hemoglobin 7.2 L Hematocrit 22.5 L Mean 89.6 Corpuscular Volume Mean 28.7 L Corpuscular Hemoglobin Mean 32.0 Corpuscular Hemoglobin Conc ent Red Cell 16.0 H Distribution Width Platelet Count 90 #L Mean Platelet 9.6 Volume Immature 5.000 H Granulocytes % Neutrophils % 68.5 Segmented 74 Neutrophils % (Manual) Band 1 Neutrophils % (Manual) Lymphocytes % 17.7 Lymphocytes % 10 L (Manual) Monocytes % 7.1 Monocytes % 6 (Manual) Eosinophils % 1.4 Eosinophils % 6 (Manual) Basophils % 0.3 Basophils % 1 (Manual) Myelocytes % 2 H (Manual) Nucleated Red 1.0 H Blood Cells % Immature 0.390 H Granulocytes # Neutrophils # 5.3 Neutrophils # 5.8 (Manual) Band 0.0 Neutrophils # Lymphocytes 0.7 L (Manual) Lymphocytes # 1.4 Monocytes # 0.6 Monocytes # 0.4 (Manual) Eosinophils # 0.1 Basophils # 0.0 Basophils # 0.0 (Manual) Myelocytes # 0.1 H Nucleated Red 0.1 H Blood Cells # Anisocytosis 1+ Microcytosis 1+ Sodium Level 150 H Potassium Level 3.5 Chloride Level 122 H Carbon Dioxide 17 L Level Anion Gap 11 Blood Urea 52 H Nitrogen Creatinine 1.54 H Est Glomerular 35 L Filtrat Rate mL/min Glucose Level 113 Calcium Level 8.2 L Test 01/20/19 04:57 01/20/19 05:17 01/20/19 07:47 01/20/19 09:52 Lab Scanned BLOOD TRANSFUSI Report ON Bedside Glucose 131 112 White Blood 8.0 Count Red Blood Count 2.93 L Hemoglobin 8.5 L Hematocrit 26.5 L Mean 90.4 Corpuscular Volume Mean 29.0 Corpuscular Hemoglobin Mean 32.1 Corpuscular Hemoglobin Conc ent Red Cell 15.7 H Distribution Width Platelet Count 108 L Mean Platelet 10.4 Volume Immature 5.500 H Granulocytes % Neutrophils % Segmented 78 H Neutrophils % (Manual) Band 1 Neutrophils % (Manual) Lymphocytes % Lymphocytes % 10 L (Manual) Reactive 6 H Lymphocytes % (Manual) Monocytes % Monocytes % 3 (Manual) Eosinophils % Basophils % Metamyelocytes 2 H % (manual) Nucleated Red 1 H Blood Cells % Immature 0.440 H Granulocytes # Neutrophils # Neutrophils # 6.2 (Manual) Band 0.0 Neutrophils # Lymphocytes 0.8 (Manual) Lymphocytes # Reactive 0.4 H Lymphocytes # Monocytes # Monocytes # 0.2 L (Manual) Eosinophils # Basophils # Metamyelocytes 0.1 H # Nucleated Red Blood Cells # Platelet SIG DECREASED Estimate Polychromasia 3+ Poikilocytosis 2+ Anisocytosis 2+ Microcytosis 2+ Sodium Level 148 H Potassium Level 3.3 L Chloride Level 123 H Carbon Dioxide 14 L Level Anion Gap 11 Blood Urea 43 H Nitrogen Creatinine 1.40 H Est Glomerular 39 L Filtrat Rate mL/min Glucose Level 100 Calcium Level 8.4 Phosphorus 3.8 Level Magnesium Level 2.1 Total Bilirubin 0.1 L Direct 0.00 Bilirubin Indirect 0.1 Bilirubin Aspartate Amino 35 Transf (AST/SGO T) Alanine 72 H Aminotransferas e (ALT/SGPT) Alkaline 133 H Phosphatase Total Protein 5.2 L Albumin 2.3 L Globulin 2.90 Albumin/Globuli 0.79 n Ratio Test 01/20/19 10:28 01/20/19 11:00 01/20/19 14:08 Sodium Level 147 H Potassium Level 3.4 L Chloride Level 119 H Carbon Dioxide 16 L Level Anion Gap 12 Blood Urea 41 H Nitrogen Creatinine 1.33 H Est Glomerular 41 L Filtrat Rate mL/min Glucose Level 93 Calcium Level 8.4 Phosphorus 3.8 Level Magnesium Level 2.1 Total Bilirubin 0.2 Direct 0.00 Bilirubin Indirect 0.2 Bilirubin Aspartate Amino 35 Transf (AST/SGO T) Alanine 73 H Aminotransferas e (ALT/SGPT) Alkaline 137 H Phosphatase Total Protein 5.5 L Albumin 2.4 L Globulin 3.10 Albumin/Globuli 0.77 n Ratio Prealbumin 10.1 L Triglycerides 233 H Level Blood Gas Blood arterial Specimen Source Arterial Blood 01/20/2019 11:18 Date Drawn :01 AM Arterial Blood 7.308 L pH (Temp corrected ) Arterial Blood 32.4 L pCO2 (Temp correct) Arterial Blood 75.9 L pO2 (Temp corrected ) Arterial Blood 15.9 L HCO3 Arterial Blood -9.4 L Base Excess Arterial Blood 93.9 L Oxygen Saturati on Jose Test ACCEPTAB Arterial Blood Right Radial Gas Puncture Site Arterial 0.3 Blood Carboxyhe moglobin Arterial Blood 0.3 Methemoglobin Blood Gas A-a 99.9 H O2 Differential Oxyhemoglobin 93.3 Percent Blood Gas 37.0 Temperature Blood Gas 24 Actual Respiration Rat e Blood Gas VENT - CPAP Modality FiO2 30.0 Blood Gas Low 5.0 PEEP Setting Blood Gas 10 Pressure Support Blood Gas TM Notified Whom Blood Gas 01/20/2019 11:46 Notified Time :51 AM Bedside Glucose 117 Subjective 24 Hr Interval Summary Constitutional: no complaints Exam/Review of Systems Exam Vitals Vital Signs Date Temp Pulse Resp B/P (MAP) Pulse Ox O2 O2 Flow FiO2 Time Delivery Rate 01/20/19 99 2.0 12:30 01/20/19 78 12:00 01/20/19 18 30 11:10 01/20/19 98.2 08:00 01/20/19 120/81 Mechanical 07:45 (94) Ventilator Intake and Output 01/19/19 01/19/19 01/20/19 1414:59 22:59 06:59 IntakeIntake Total 1440.0 ml 1282.252 ml 1595.84 ml OutputOutput Total 290 ml 485 ml 525 ml BalanceBalance 1150.0 ml 797.252 ml 1070.84 ml Constitutional: alert Respiratory: clear to auscultation Cardiovascular: regular rate and rhythm Gastrointestinal: soft; No distended Musculoskeletal: nl extremities to inspection Results Results 24hrs Laboratory Tests Test 01/19/19 17:22 01/19/19 18:48 01/19/19 21:01 01/20/19 00:43 Bedside Glucose 133 139 125 White Blood 7.8 # Count Red Blood Count 2.51 L Hemoglobin 7.2 L Hematocrit 22.5 L Mean 89.6 Corpuscular Volume Mean 28.7 L Corpuscular Hemoglobin Mean 32.0 Corpuscular Hemoglobin Conc ent Red Cell 16.0 H Distribution Width Platelet Count 90 #L Mean Platelet 9.6 Volume Immature 5.000 H Granulocytes % Neutrophils % 68.5 Segmented 74 Neutrophils % (Manual) Band 1 Neutrophils % (Manual) Lymphocytes % 17.7 Lymphocytes % 10 L (Manual) Monocytes % 7.1 Monocytes % 6 (Manual) Eosinophils % 1.4 Eosinophils % 6 (Manual) Basophils % 0.3 Basophils % 1 (Manual) Myelocytes % 2 H (Manual) Nucleated Red 1.0 H Blood Cells % Immature 0.390 H Granulocytes # Neutrophils # 5.3 Neutrophils # 5.8 (Manual) Band 0.0 Neutrophils # Lymphocytes 0.7 L (Manual) Lymphocytes # 1.4 Monocytes # 0.6 Monocytes # 0.4 (Manual) Eosinophils # 0.1 Basophils # 0.0 Basophils # 0.0 (Manual) Myelocytes # 0.1 H Nucleated Red 0.1 H Blood Cells # Anisocytosis 1+ Microcytosis 1+ Sodium Level 150 H Potassium Level 3.5 Chloride Level 122 H Carbon Dioxide 17 L Level Anion Gap 11 Blood Urea 52 H Nitrogen Creatinine 1.54 H Est Glomerular 35 L Filtrat Rate mL/min Glucose Level 113 Calcium Level 8.2 L Test 01/20/19 04:57 01/20/19 05:17 01/20/19 07:47 01/20/19 09:52 Lab Scanned BLOOD TRANSFUSI Report ON Bedside Glucose 131 112 White Blood 8.0 Count Red Blood Count 2.93 L Hemoglobin 8.5 L Hematocrit 26.5 L Mean 90.4 Corpuscular Volume Mean 29.0 Corpuscular Hemoglobin Mean 32.1 Corpuscular Hemoglobin Conc ent Red Cell 15.7 H Distribution Width Platelet Count 108 L Mean Platelet 10.4 Volume Immature 5.500 H Granulocytes % Neutrophils % Segmented 78 H Neutrophils % (Manual) Band 1 Neutrophils % (Manual) Lymphocytes % Lymphocytes % 10 L (Manual) Reactive 6 H Lymphocytes % (Manual) Monocytes % Monocytes % 3 (Manual) Eosinophils % Basophils % Metamyelocytes 2 H % (manual) Nucleated Red 1 H Blood Cells % Immature 0.440 H Granulocytes # Neutrophils # Neutrophils # 6.2 (Manual) Band 0.0 Neutrophils # Lymphocytes 0.8 (Manual) Lymphocytes # Reactive 0.4 H Lymphocytes # Monocytes # Monocytes # 0.2 L (Manual) Eosinophils # Basophils # Metamyelocytes 0.1 H # Nucleated Red Blood Cells # Platelet SIG DECREASED Estimate Polychromasia 3+ Poikilocytosis 2+ Anisocytosis 2+ Microcytosis 2+ Sodium Level 148 H Potassium Level 3.3 L Chloride Level 123 H Carbon Dioxide 14 L Level Anion Gap 11 Blood Urea 43 H Nitrogen Creatinine 1.40 H Est Glomerular 39 L Filtrat Rate mL/min Glucose Level 100 Calcium Level 8.4 Phosphorus 3.8 Level Magnesium Level 2.1 Total Bilirubin 0.1 L Direct 0.00 Bilirubin Indirect 0.1 Bilirubin Aspartate Amino 35 Transf (AST/SGO T) Alanine 72 H Aminotransferas e (ALT/SGPT) Alkaline 133 H Phosphatase Total Protein 5.2 L Albumin 2.3 L Globulin 2.90 Albumin/Globuli 0.79 n Ratio Test 01/20/19 10:28 01/20/19 11:00 01/20/19 14:08 Sodium Level 147 H Potassium Level 3.4 L Chloride Level 119 H Carbon Dioxide 16 L Level Anion Gap 12 Blood Urea 41 H Nitrogen Creatinine 1.33 H Est Glomerular 41 L Filtrat Rate mL/min Glucose Level 93 Calcium Level 8.4 Phosphorus 3.8 Level Magnesium Level 2.1 Total Bilirubin 0.2 Direct 0.00 Bilirubin Indirect 0.2 Bilirubin Aspartate Amino 35 Transf (AST/SGO T) Alanine 73 H Aminotransferas e (ALT/SGPT) Alkaline 137 H Phosphatase Total Protein 5.5 L Albumin 2.4 L Globulin 3.10 Albumin/Globuli 0.77 n Ratio Prealbumin 10.1 L Triglycerides 233 H Level Blood Gas Blood arterial Specimen Source Arterial Blood 01/20/2019 11:18 Date Drawn :01 AM Arterial Blood 7.308 L pH (Temp corrected ) Arterial Blood 32.4 L pCO2 (Temp correct) Arterial Blood 75.9 L pO2 (Temp corrected ) Arterial Blood 15.9 L HCO3 Arterial Blood -9.4 L Base Excess Arterial Blood 93.9 L Oxygen Saturati on Jose Test ACCEPTAB Arterial Blood Right Radial Gas Puncture Site Arterial 0.3 Blood Carboxyhe moglobin Arterial Blood 0.3 Methemoglobin Blood Gas A-a 99.9 H O2 Differential Oxyhemoglobin 93.3 Percent Blood Gas 37.0 Temperature Blood Gas 24 Actual Respiration Rat e Blood Gas VENT - CPAP Modality FiO2 30.0 Blood Gas Low 5.0 PEEP Setting Blood Gas 10 Pressure Support Blood Gas TM Notified Whom Blood Gas 01/20/2019 11:46 Notified Time :51 AM Bedside Glucose 117 Medications Medication Current Medications Norepinephrine 250 ml @ 1.875 mls/ hr TITRATE IV ; Start 01/16/19 at 22:00 Vancomycin HCl (Vanco Iv Per Pharmacy) VANCOMYCIN PER PHARMACY PER PROTOCOL XX ; Start 01/16/19 at 23:30 Albuterol (Ventolin Hfa) 4 puff Q2H RESP THERAPY PRN INH SHORTNESS OF BREATH; Start 01/17/19 at 00:00 Ipratropium [place] (Atrovent Hfa) 4 puff Q2H RESP THERAPY PRN INH SHORTNESS OF BREATH; Start 01/17/19 at 00:00 Acetaminophen (Tylenol Liquid) 650 mg Q6H PRN PO PAIN LEVEL 1-3 OR FEVER; St art 01/17/19 at 00:00 Propofol 100 ml @ 1.698 mls/ hr Q12H IV Last administered on 01/20/19at 09:56; Admin Dose 1.698 MLS/HR; Start 01/17/19 at 10:30 Diagnostic Test (Pha) (Accu-Chek) 1 ea 02 XX Last administered on 01/19/19at 02:46; Admin Dose 1 EA; Start 01/18/19 at 02:00 Insulin Aspart (Novolog Insulin Pen) NOVOLOG *MILD* ALGORI... Q4 SC Last administered on 01/18/19at 12:32; Admin Dose 1 UNIT; Start 01/17/19 at 13:00 Miscellaneous Information 1 ea NOTE XX ; Start 01/17/19 at 11:00 Glucose (Glutose) 15 gm Q15M PRN PO DECREASED GLUCOSE; Start 01/17/19 at 11:00 Glucose (Glutose) 22.5 gm Q15M PRN PO DECREASED GLUCOSE; Start 01/17/19 at 11:00 Dextrose (D50w Syringe) 25 ml Q15M PRN IV DECREASED GLUCOSE; Start 01/17/19 at 11:00 Dextrose (D50w Syringe) 50 ml Q15M PRN IV DECREASED GLUCOSE; Start 01/17/19 at 11:00 Glucagon (Glucagen) 1 mg Q15M PRN IM DECREASED GLUCOSE; Start 01/17/19 at 11:00 Glucose (Glutose) 15 gm Q15M PRN BUCCAL DECREASED GLUCOSE; Start 01/17/19 at 11:00 Famotidine (Pepcid Iv) 20 mg DAILY IV Last administered on 01/20/19at 09:59; Admin Dose 20 MG; Start 01/18/19 at 09:00 Collagenase (Santyl) 1 applic DAILY TOP Last administered on 01/20/19at 09:52; Admin Dose 1 APPLIC; Start 01/17/19 at 17:00 Fentanyl 100 ml @ 2.5 mls/hr TITRATE IV Last administered on 01/19/19at 23:06; Admin Dose 7.5 MLS/HR; Start 01/17/19 at 21:30 Piperacillin Sod/ Tazobactam Sod 50 ml @ 100 mls/hr Q6 IVPB Last administered on 01/20/19at 12:14; Admin Dose 100 MLS/HR; Start 01/18/19 at 12:00 Morphine Sulfate (morphine) 1 mg Q3H PRN IV SEVERE PAIN LEVEL 7-10; Start 01/18/19 at 19:00 Hydromorphone HCl (Dilaudid VERSE WRITER) 0.2 MG/HR CONTINUOUS RATE ... Q2 IV Last administered on 01/20/19at 02:19; Admin Dose 6 MG; Start 01/18/19 at 19:00 Vancomycin/Sodium Chloride 250 ml @ 125 mls/hr Q24H IVPB Last administered on 01/19/19at 16:00; Admin Dose 125 MLS/HR; Start 01/19/19 at 15:00 Diagnostic Test (Pha) (Accu-Chek) 1 ea Q4 XX ; Start 01/20/19 at 13:00; Status UNV Total Parenteral Nutrition 1,000 ml @ 0 mls/hr Q0M IV ; Start 01/20/19 at 09:39; Status UNV Miscellaneous Information (* Miscellaneous Pharmacy Order) 1 ea ONCE ONCE XX ; Start 01/20/19 at 10:00; Stop 01/20/19 at 10:01; Status UNV Dextrose 1,000 ml @ 100 mls/hr Q10H IV Last administered on 01/20/19at 12:15; Admin Dose 100 MLS/HR; Start 01/20/19 at 11:30 Miscellaneous Information (*Rx Drug Level Order Reminder*) VANCO TROUGH @ 1,400 ON... ONCE ONCE XX ; Start 01/21/19 at 14:00; Stop 01/21/19 at 14:01 ALLISON WOLFF Jan 20, 2019 15:13
[2019-01-20] MEDS ORDERED: NA BICARBONATE 8.4% 50 ML SYG IV ONE (16:00)
[2019-01-20] MEDS: VANCOMYCIN 750 MG (PMX) 250 ML IVPB SCH (18:05)
[2019-01-21] VITALS (19 sets, daily range): BP systolic 114–185; BP diastolic 61–101; PULSE 53–100; RESP 14–20
[2019-01-21] MEDS: HYDROmorphONE 0.2 MG/ML PCA IV SCH ×11 (01:00→23:00)
[2019-01-21] MEDS: INSULIN ASPART [NOVOLOG] 3 ML PEN SC SCH ×6 (01:00→21:00)
[2019-01-21] MEDS: PIPER-TAZO 2.25 GM (PMX) 50 ML IVPB SCH (05:19)
[2019-01-21] MEDS: DEXTROSE 5% 1,000 ML IV SCH (05:22)
--- NOTE | 2019-01-21 06:40 | CONS ---
Assessment/Plan Assessment/Plan Hospital Course (Demo Recall) 1) pneumoperitoneum and sepsis could be related to pt taking motrin for some pain continue with vanco/zosyn at present to renally dose them await decision by family regarding surgery vs hospice 01/18 - continue with vanco/zosyn CoNS in blood, only one bottle, likely represents contamination e.coli in urine is sensitive to the zosyn pt has EtOH abuse lactic acid has normalized 01/19 - MRSA in nasal area, likely perf is gastric or duodenal to continue with vanco at present and zosyn decrease in platelets noted, may need to change vanco if trend continues 01/20 - no significant change a.m. labs are pending due to blood tx overnight on vanco/zosyn pt has GNR in blood cx, ID is pending but sensitive to zosyn 01/21 - increase dose of zosyn as renal function is further improved awaits CT abd/pelv repeat to see if pt can start to eat alcaligenes was also in blood cx and is a stool bacteria 2)severe anemia pt is being transfused only smears of stool since admission to get hemoccult 01/18 - Hgb is more stable 01/19 - drop in Hgb again, will need blood tx again 01/20 - pt tx again, a.m. labs are pending 01/21 - Hgb is at 9 now 3) ARF with pyuria and hematuria (e.coli in urine) improving with hydration and blood tx await urine cx results 01/18 - improving urine output and creatinine urine cx has e.coli that is sensitive to zosyn renal u/s suggests hydro on the R and possible renal clot or debris on L 01/19 - further improvement in creatinine on zosyn for e.coli in urine 01/21 - further improvement in renal function 4) elevated troponins likely due to stress from severe anemia 5) hepatitis again likely due to sepsis and severe anemia check hep serologies 01/18 - hep serologies are pending 01/19 - neg hep serologies and HIV LFT's are trending down 6) L hip eschar/decubitus unstageable wound cx was ordered 01/18 - wound cx has not been done, nurse was informed 01/19 - wound cx was obtained and is pending 01/20 - wound cx has GPC growing 01/21 - MRSA in wound cx from hip, continue with vanco at present platelets are improving 7) hypoalbuminemia pt came in with low albumin, she has likely been sick or not eating well for a while 8) CoNS bacteremia 01/18 - only one bottle has CoNS, likely this is contamination continue with vanco at present, await final wound cx results 9) decrease in platelets 01/19 - consider change of vanco if trend continues 01/20 - her MRSA is sensitive to doxy so could change vanco to that 01/21 - platelets are improved 10) GNR in original blood cx (alcaligenes faecalis) 01/20 - ID is pending but it is sensitive to zosyn 01/21 - alcaligenes is a stool bacteria and likely related to her peritonitis continue with zosyn Consultation Date/Type/Reason Admit Date/Time Jan 16, 2019 at 23:33 Initial Consult Date 01/17/19 Type of Consult ID Requesting Provider: NINA HOLT Date/Time of Note DATE: 01/21/19 TIME: 06:30 24 HR Interval Summary Free Text/Dictation pt is extubated and wants to eat she states minimal pain to abd await CT of abd she is having BM's breathing is ok Exam/Review of Systems Exam Vitals Vital Signs Date Temp Pulse Resp B/P (MAP) Pulse Ox O2 O2 Flow FiO2 Time Delivery Rate 01/21/19 53 04:43 01/21/19 18 04:00 01/21/19 143/79 100 Room Air 03:00 (100) 01/21/19 98.4 00:00 01/20/19 2.0 17:35 01/20/19 30 11:10 Intake and Output 01/20/19 01/20/19 01/21/19 1515:00 23:00 07:00 IntakeIntake Total 350 ml 850 ml 550 ml OutputOutput Total 280 ml 365 ml 215 ml BalanceBalance 70 ml 485 ml 335 ml Constitutional: alert Eyes: nl sclera ENMT: mucosa pink and moist Respiratory: clear to auscultation Cardiovascular: regular rate and rhythm Gastrointestinal: soft, non-tender Results Result Diagram: 01/21/19 0400 01/21/19 0400 Results 24hrs Laboratory Tests Test 01/20/19 07:47 01/20/19 09:52 3/28/19 10:28 01/20/19 11:00 White Blood 8.0 Count Red Blood Count 2.93 L Hemoglobin 8.5 L Hematocrit 26.5 L Mean 90.4 Corpuscular Volume Mean 29.0 Corpuscular Hemoglobin Mean 32.1 Corpuscular Hemoglobin Conc ent Red Cell 15.7 H Distribution Width Platelet Count 108 L Mean Platelet 10.4 Volume Immature 5.500 H Granulocytes % Neutrophils % Segmented 78 H Neutrophils % (Manual) Band 1 Neutrophils % (Manual) Lymphocytes % Lymphocytes % 10 L (Manual) Reactive 6 H Lymphocytes % (Manual) Monocytes % Monocytes % 3 (Manual) Eosinophils % Basophils % Metamyelocytes 2 H % (manual) Nucleated Red 1 H Blood Cells % Immature 0.440 H Granulocytes # Neutrophils # Neutrophils # 6.2 (Manual) Band 0.0 Neutrophils # Lymphocytes 0.8 (Manual) Lymphocytes # Reactive 0.4 H Lymphocytes # Monocytes # Monocytes # 0.2 L (Manual) Eosinophils # Basophils # Metamyelocytes 0.1 H # Nucleated Red Blood Cells # Platelet SIG DECREASED Estimate Polychromasia 3+ Poikilocytosis 2+ Anisocytosis 2+ Microcytosis 2+ Sodium Level 148 H 147 H Potassium Level 3.3 L 3.4 L Chloride Level 123 H 119 H Carbon Dioxide 14 L 16 L Level Anion Gap 11 12 Blood Urea 43 H 41 H Nitrogen Creatinine 1.40 H 1.33 H Est Glomerular 39 L 41 L Filtrat Rate mL/min Glucose Level 100 93 Calcium Level 8.4 8.4 Phosphorus 3.8 3.8 Level Magnesium Level 2.1 2.1 Total Bilirubin 0.1 L 0.2 Direct 0.00 0.00 Bilirubin Indirect 0.1 0.2 Bilirubin Aspartate Amino 35 35 Transf (AST/SGO T) Alanine 72 H 73 H Aminotransferas e (ALT/SGPT) Alkaline 133 H 137 H Phosphatase Total Protein 5.2 L 5.5 L Albumin 2.3 L 2.4 L Globulin 2.90 3.10 Albumin/Globuli 0.79 0.77 n Ratio Bedside Glucose 112 Prealbumin 10.1 L Triglycerides 233 H Level Blood Gas Blood Specimen arterial Source Arterial Blood 01/20/2019 11:1 Date Drawn 8:01 AM Arterial Blood 7.308 L pH (Temp corrected ) Arterial Blood 32.4 L pCO2 (Temp correct) Arterial Blood 75.9 L pO2 (Temp corrected ) Arterial Blood 15.9 L HCO3 Arterial Blood -9.4 L Base Excess Arterial Blood 93.9 L Oxygen Saturati on Jose Test ACCEPTAB Arterial Blood Right Radial Gas Puncture Site Arterial 0.3 Blood Carboxyhe moglobin Arterial Blood 0.3 Methemoglobin Blood Gas A-a 99.9 H O2 Differential Oxyhemoglobin 93.3 Percent Blood Gas 37.0 Temperature Blood Gas 24 Actual Respiration Rat e Blood Gas VENT - CPAP Modality FiO2 30.0 Blood Gas Low 5.0 PEEP Setting Blood Gas 10 Pressure Support Blood Gas TM Notified Whom Blood Gas 01/20/2019 11:4 Notified Time 6:51 AM Test 01/20/19 14:08 01/20/19 18:01 01/20/19 22:22 01/21/19 02:06 Bedside Glucose 117 117 123 113 Test 01/21/19 04:00 01/21/19 05:00 01/21/19 05:02 White Blood 10.8 # Count Red Blood Count 3.08 L Hemoglobin 9.0 L Hematocrit 28.0 L Mean 90.9 Corpuscular Volume Mean 29.2 Corpuscular Hemoglobin Mean 32.1 Corpuscular Hemoglobin Conc ent Red Cell 15.5 H Distribution Width Platelet Count 134 #L Mean Platelet 10.4 Volume Immature 3.900 H Granulocytes % Neutrophils % 72.4 Lymphocytes % 13.6 L Monocytes % 7.5 Eosinophils % 2.1 Basophils % 0.5 Nucleated Red 0.0 Blood Cells % Immature 0.420 H Granulocytes # Neutrophils # 7.8 H Lymphocytes # 1.5 Monocytes # 0.8 Eosinophils # 0.2 Basophils # 0.1 Nucleated Red 0.0 Blood Cells # Sodium Level 146 H Potassium Level 3.4 L Chloride Level 117 H Carbon Dioxide 18 L Level Anion Gap 11 Blood Urea 34 H Nitrogen Creatinine 1.27 H Est Glomerular 43 L Filtrat Rate mL/min Glucose Level 100 Calcium Level 8.3 L Phosphorus 3.6 Level Magnesium Level 1.9 Lab Scanned BLOOD TRANSFUSI Report ON Bedside Glucose 100 Medications Medication Current Medications Vancomycin HCl (Vanco Iv Per Pharmacy) VANCOMYCIN PER PHARMACY PER PROTOCOL XX ; Start 01/16/19 at 23:30 Albuterol (Ventolin Hfa) 4 puff Q2H RESP THERAPY PRN INH SHORTNESS OF BREATH; Start 01/17/19 at 00:00 Ipratropium [place] (Atrovent Hfa) 4 puff Q2H RESP THERAPY PRN INH SHORTNESS OF BREATH; Start 01/17/19 at 00:00 Acetaminophen (Tylenol Liquid) 650 mg Q6H PRN PO PAIN LEVEL 1-3 OR FEVER; Start 01/17/19 at 00:00 Insulin Aspart (Novolog Insulin Pen) NOVOLOG *MILD* ALGORI... Q4 SC Last administered on 01/18/19at 12:32; Admin Dose 1 UNIT; Start 01/17/19 at 13:00 Miscellaneous Information 1 ea NOTE XX ; Start 01/17/19 at 11:00 Glucose (Glutose) 15 gm Q15M PRN PO DECREASED GLUCOSE; Start 01/17/19 at 11:00 Glucose (Glutose) 22.5 gm Q15M PRN PO DECREASED GLUCOSE; Start 01/17/19 at 11:00 Dextrose (D50w Syringe) 25 ml Q15M PRN IV DECREASED GLUCOSE; Start 01/17/19 at 11:00 Dextrose (D50w Syringe) 50 ml Q15M PRN IV DECREASED GLUCOSE; Start 01/17/19 at 11:00 Glucagon (Glucagen) 1 mg Q15M PRN IM DECREASED GLUCOSE; Start 01/17/19 at 11:00 Glucose (Glutose) 15 gm Q15M PRN BUCCAL DECREASED GLUCOSE; Start 01/17/19 at 11:00 Famotidine (Pepcid Iv) 20 mg DAILY IV Last administered on 01/20/19at 09:59; Admin Dose 20 MG; Start 01/18/19 at 09:00 Collagenase (Santyl) 1 applic DAILY TOP Last administered on 01/20/19at 09:52; Admin Dose 1 APPLIC; Start 01/17/19 at 17:00 Piperacillin Sod/ Tazobactam Sod 50 ml @ 100 mls/hr Q6 IVPB Last administered on 01/21/19at 05:19; Admin Dose 100 MLS/HR; Start 01/18/19 at 12:00 Morphine Sulfate (morphine) 1 mg Q3H PRN IV SEVERE PAIN LEVEL 7-10; Start 01/18/19 at 19:00 Hydromorphone HCl (Dilaudid KEYCASE ASSEMBLER) 0.2 MG/HR CONTINUOUS RATE ... Q2 IV Last administered on 01/21/19at 05:59; Admin Dose 6 MG; Start 01/18/19 at 19:00 Vancomycin/Sodium Chloride 250 ml @ 125 mls/hr Q24H IVPB Last administered on 01/20/19at 18:05; Admin Dose 125 MLS/HR; Start 01/19/19 at 15:00 Diagnostic Test (Pha) (Accu-Chek) 1 ea Q4 XX ; Start 01/20/19 at 13:00; Status UNV Total Parenteral Nutrition 1,000 ml @ 0 mls/hr Q0M IV ; Start 01/20/19 at 09:39; Status UNV Miscellaneous Information (* Miscellaneous Pharmacy Order) 1 ea ONCE ONCE XX ; Start 01/20/19 at 10:00; Stop 01/20/19 at 10:01; Status UNV Dextrose 1,000 ml @ 100 mls/hr Q10H IV Last administered on 01/21/19at 05:22; Admin Dose 100 MLS/HR; Start 01/20/19 at 11:30 Miscellaneous Information (*Rx Drug Level Order Reminder*) VANCO TROUGH @ 1,400 ON... ONCE ONCE XX ; Start 01/21/19 at 14:00; Stop 01/21/19 at 14:01 PATSY LVEY MD Jan 21, 2019 06:40
--- NOTE | 2019-01-21 07:51 | CONS ---
Consult Date/Type/Reason Admit Date/Time Jan 16, 2019 at 23:33 Initial Consult Date 01/17/19 Type of Consultation: cv Requesting Provider: NINA HOLT Date/Time of Note DATE: 01/21/19 TIME: 07:48 Subjective Interventional cardiology follow-up progress note/critical care note Subjective: Discussed with the staff and physicians. .Telemetry was reviewed. Patient remains in sinus rhythm Patient was extubated on 01/20 still in ICU and NPO no chest pain She wants to drink + abd pain Objective: General: appears older than states age. HEENT: NC/AT. PERRL NECK: no stridor. CV: RRR. systolic murmur; no gallop or rubs. PULM: no wheezing MILD rhonchi. GI: Distended.+ Tender to palpation Extremity: trace B/L LE edema. no clubbing. neuro: Comfortably sleeping/sedated Psych: calm rectal: deferred : status post Valadez catheter in place . EKG normal sinus rhythm poor R wave progression consistent with possible anterior infarct. ST-T wave abnormality suggestive of inferolateral ischemia Echocardiogram done January 17 which was personally reviewed shows: Lower limits of normal systolic function. Normal left ventricular cavity size. Mild concentric left ventricular hypertrophy. Ejection fraction is visually estimated at 45 %. Tissue Doppler/Mitral Doppler indices are consistent with impaired relaxation (Stage I diastolic dysfunction). These segments of the LV are hypokinetic apical anterior segment and apical septum. Mitral valve leaflets appear mildly thickened. Mild mitral annular calcification. Trace mitral regurgitation. Aortic valve Max velocity 2.28 m/sec. Max PG 21.00 mmHg. Mean PG 10.00 mmHg. Aortic sclerosis without significant stenosis. Trace aortic valve regurgitation. Normal appearance of the tricuspid valve. Estimated peak PA systolic pressure 79 mmHg. There is moderate tricuspid regurgitation. Objective Vitals Vital Signs Date Temp Pulse Resp B/P (MAP) Pulse Ox O2 O2 Flow FiO2 Time Delivery Rate 01/21/19 70 19 145/98 100 06:00 (114) 01/21/19 98.5 04:00 01/21/19 Room Air 03:00 01/20/19 2.0 17:35 01/20/19 30 11:10 Intake and Output 01/20/19 01/20/19 01/21/19 1515:00 23:00 07:00 IntakeIntake Total 350 ml 850 ml 750 ml OutputOutput Total 280 ml 365 ml 365 ml BalanceBalance 70 ml 485 ml 385 ml Results/Medications Result Diagram: 01/21/19 0400 01/21/19 0400 Results 24 hrs Laboratory Tests Test 01/20/19 09:52 01/20/19 10:28 01/20/19 11:00 01/20/19 14:08 Bedside Glucose 112 117 Sodium Level 147 H Potassium Level 3.4 L Chloride Level 119 H Carbon Dioxide 16 L Level Anion Gap 12 Blood Urea 41 H Nitrogen Creatinine 1.33 H Est Glomerular 41 L Filtrat Rate mL/min Glucose Level 93 Calcium Level 8.4 Phosphorus Level 3.8 Magnesium Level 2.1 Total Bilirubin 0.2 Direct Bilirubin 0.00 Indirect 0.2 Bilirubin Aspartate Amino 35 Transf (AST/SGOT ) Alanine 73 H Aminotransferase (ALT/SGPT) Alkaline 137 H Phosphatase Total Protein 5.5 L Albumin 2.4 L Globulin 3.10 Albumin/Globulin 0.77 Ratio Prealbumin 10.1 L Triglycerides 233 H Level Blood Gas Blood arterial Specimen Source Arterial Blood 01/20/2019 11:18 Date Drawn :01 AM Arterial Blood 7.308 L pH (Temp corrected) Arterial Blood 32.4 L pCO2 (Temp correct) Arterial Blood 75.9 L pO2 (Temp corrected) Arterial Blood 15.9 L HCO3 Arterial Blood -9.4 L Base Excess Arterial Blood 93.9 L Oxygen Saturatio n Jose Test ACCEPTAB Arterial Blood Right Radial Gas Puncture Site Arterial 0.3 Blood Carboxyhem oglobin Arterial Blood 0.3 Methemoglobin Blood Gas A-a O2 99.9 H Differential Oxyhemoglobin 93.3 Percent Blood Gas 37.0 Temperature Blood Gas Actual 24 Respiration Rate Blood Gas VENT - CPAP Modality FiO2 30.0 Blood Gas Low 5.0 PEEP Setting Blood Gas 10 Pressure Support Blood Gas TM Notified Whom Blood Gas 01/20/2019 11:46 Notified Time :51 AM Test 01/20/19 18:01 01/20/19 22:22 01/21/19 02:06 01/21/19 04:00 Bedside Glucose 117 123 113 White Blood 10.8 # Count Red Blood Count 3.08 L Hemoglobin 9.0 L Hematocrit 28.0 L Mean Corpuscular 90.9 Volume Mean Corpuscular 29.2 Hemoglobin Mean Corpuscular 32.1 Hemoglobin Helen nt Red Cell 15.5 H Distribution Width Platelet Count 134 #L Mean Platelet 10.4 Volume Immature 3.900 H Granulocytes % Neutrophils % 72.4 Lymphocytes % 13.6 L Monocytes % 7.5 Eosinophils % 2.1 Basophils % 0.5 Nucleated Red 0.0 Blood Cells % Immature 0.420 H Granulocytes # Neutrophils # 7.8 H Lymphocytes # 1.5 Monocytes # 0.8 Eosinophils # 0.2 Basophils # 0.1 Nucleated Red 0.0 Blood Cells # Sodium Level 146 H Potassium Level 3.4 L Chloride Level 117 H Carbon Dioxide 18 L Level Anion Gap 11 Blood Urea 34 H Nitrogen Creatinine 1.27 H Est Glomerular 43 L Filtrat Rate mL/min Glucose Level 100 Calcium Level 8.3 L Phosphorus Level 3.6 Magnesium Level 1.9 Test 01/21/19 05:00 01/21/19 05:02 Lab Scanned BLOOD TRANSFUSI Report ON Bedside Glucose 100 Home Meds Reported Medications Gabapentin* (Gabapentin*) 100 Mg Capsule, 100 MG PO TID, #90 CAP 01/20/18 Medications Current Medications Vancomycin HCl (Vanco Iv Per Pharmacy) VANCOMYCIN PER PHARMACY PER PROTOCOL XX ; Start 01/16/19 at 23:30 Albuterol (Ventolin Hfa) 4 puff Q2H RESP THERAPY PRN INH SHORTNESS OF BREATH; Start 01/17/19 at 00:00 Ipratropium [place] (Atrovent Hfa) 4 puff Q2H RESP THERAPY PRN INH SHORTNESS OF BREATH; Start 01/17/19 at 00:00 Acetaminophen (Tylenol Liquid) 650 mg Q6H PRN PO PAIN LEVEL 1-3 OR FEVER; Start 01/17/19 at 00:00 Insulin Aspart (Novolog Insulin Pen) NOVOLOG *MILD* ALGORI... Q4 SC Last administered on 01/18/19at 12:32; Admin Dose 1 UNIT; Start 01/17/19 at 13:00 Miscellaneous Information 1 ea NOTE XX ; Start 01/17/19 at 11:00 Glucose (Glutose) 15 gm Q15M PRN PO DECREASED GLUCOSE; Start 01/17/19 at 11:00 Glucose (Glutose) 22.5 gm Q15M PRN PO DECREASED GLUCOSE; Start 01/17/19 at 11:00 Dextrose (D50w Syringe) 25 ml Q15M PRN IV DECREASED GLUCOSE; Start 01/17/19 at 11:00 Dextrose (D50w Syringe) 50 ml Q15M PRN IV DECREASED GLUCOSE; Start 01/17/19 at 11:00 Glucagon (Glucagen) 1 mg Q15M PRN IM DECREASED GLUCOSE; Start 01/17/19 at 11:00 Glucose (Glutose) 15 gm Q15M PRN BUCCAL DECREASED GLUCOSE; Start 01/17/19 at 11:00 Famotidine (Pepcid Iv) 20 mg DAILY IV Last administered on 01/20/19at 09:59; Admin Dose 20 MG; Start 01/18/19 at 09:00 Collagenase (Santyl) 1 applic DAILY TOP Last administered on 01/20/19at 09:52; Admin Dose 1 APPLIC; Start 01/17/19 at 17:00 Morphine Sulfate (morphine) 1 mg Q3H PRN IV SEVERE PAIN LEVEL 7-10; Start 01/18/19 at 19:00 Hydromorphone HCl (Dilaudid BRE[employer] PROGRAM COORDINATOR) 0.2 MG/HR CONTINUOUS RATE ... Q2 IV Last administered on 01/21/19at 05:59; Admin Dose 6 MG; Start 01/18/19 at 19:00 Vancomycin/Sodium Chloride 250 ml @ 125 mls/hr Q24H IVPB Last administered on 01/20/19at 18:05; Admin Dose 125 MLS/HR; Start 01/19/19 at 15:00 Diagnostic Test (Pha) (Accu-Chek) 1 ea Q4 XX ; Start 01/20/19 at 13:00; Status UNV Total Parenteral Nutrition 1,000 ml @ 0 mls/hr Q0M IV ; Start 01/20/19 at 09:39; Status UNV Miscellaneous Information (* Miscellaneous Pharmacy Order) 1 ea ONCE ONCE XX ; Start 01/20/19 at 10:00; Stop 01/20/19 at 10:01; Status UNV Dextrose 1,000 ml @ 100 mls/hr Q10H IV Last administered on 01/21/19at 05:22; Admin Dose 100 MLS/HR; Start 01/20/19 at 11:30 Miscellaneous Information (*Rx Drug Level Order Reminder*) VANCO TROUGH @ 1,400 ON... ONCE ONCE XX ; Start 01/21/19 at 14:00; Stop 01/21/19 at 14:01 Piperacillin Sod/ Tazobactam Sod 100 ml @ 200 mls/hr Q6 IVPB ; Start 01/21/19 at 12:00; Status UNV Assessment/Plan Hospital Course (Demo Recall) 1. Non-ST elevation myocardial infarction: At this point is unclear type I or type II 2. Shock multifactorial mostly septic : improved now 3. Severe sepsis 4. Severe anemia status post transfusions 5. Perforated viscus 6. Lactic acidosis 7. acute Renal failure improved now 8. Cardiomyopathy 9. s/p Hypoxic respiratory failure : extubated now 11. hypo K Recommendations: Follow with multiple assessment consultant recommendations. Continue with supportive care. transfusion prn pt is NPO. Unable to give aspirin given her severe anemia . Transfusions as needed replace lytes prn will start coreg Continue with ICU care. More than 32 minutes of critical care time was for management treatment is critically ill patient excluding any procedures Thank you for his referral. We will continue to follow along with you. EMILY LARA MD [facility] EMILY LARA MD Jan 21, 2019 07:51
[2019-01-21] MEDS ORDERED: MAGNESIUM SULFATE 2 GM/50 ML 50 ML IVPB ONE (08:00)
[2019-01-21] MEDS: POTASSIUM CHLORIDE 100 ML IVPB SCH ×2 (08:30→10:45)
[2019-01-21] MEDS: FAMOTIDINE 20 MG INJ IV SCH (08:52)
--- NOTE | 2019-01-21 09:00 | PN ---
DATE: 01/21/2019 SUBJECTIVE: The patient is clinically improved, currently extubated. Urinary output has been adequa te. No other events noted. The patient is requesting to eat. OBJECTIVE: VITAL SIGNS: Blood pressure is 145/98, respirations 19, pulse 70, temperature 98.5. HEENT: Head is normocephalic. NECK: Supple. HEART: Regular rate. LUNGS: Show diminished breath sounds at the base. ABDOMEN: Soft, nontender to palpation without rebound or guarding. EXTREMITIES: Negative for clubbing, cyanosis. Trace edema. DERMATOLOGIC: No rashes. MUSCULOSKELETAL: No joint effusion. NEUROLOGIC: No change in exam. LABORATORY DATA: Shows a sodium of 146, potassium 3.4, chloride 117, bicarbonate 18, BUN 34, creatin ine 1.27. White count 10.8, hemoglobin 9.0, platelet count is 134. The patient's laboratory data keita s been reviewed. IMAGING STUDIES: The patient's chest x-ray and imaging studies have been reviewed. MEDICATIONS: The patient's medications have been reviewed. Cultures have been reviewed. ASSESSMENT AND PLAN: 1. Nonoliguric acute kidney injury with unknown baseline creatinine. Etiology of acute kidney injur y is secondary to acute tubular necrosis due to volume depletion, shock, NSAID use. The patient's re nal function has been improving. Continue current treatment plans, supportive care, renally dose all medicines. 2. Hypernatremia. The patient's sodium levels have been improving. Continue D5 water, we will alyssa calate IV fluids. 3. Hypokalemia. Replete with potassium chloride. 4. Metabolic acidosis. Etiology is multifactorial secondary to acute kidney injury, hypercatabolic state. The patient is compensated. ABG was reviewed. The patient is status post 1 amp of bicarbona te. We will continue to monitor. Bicarbonate levels have has slowly been improving. 5. Sepsis, status post shock secondary to pneumoperitoneum, urinary tract infection. Continue broad spectrum antibiotics, IV fluids. 6. Respiratory failure. The patient is status post extubation. Continue to monitor. 7. Perforated viscus. The patient was seen by general surgery, no plan for surgical intervention at this time. 8. Leukocytosis from sepsis, anemia, improving. 9. Elevated troponin likely from non-ST elevation myocardial infarction type 2. Continue to monitor . Follow up with cardiology. 10. Acute encephalopathy. Etiology is toxic metabolic. 11. Decubitus wound. Multiple. Continue wound care. Dictated By: SHAW OLMSTEAD DO NR/NTS Conf#: [id number] DID#: [id number] CC: BLAISE MARTINS MD; ALEK HANDLEY MD; ALLISON WOLFF MD;*EndCC*
--- NOTE | 2019-01-21 09:33 | PN ---
Date/Time of Note Date/Time of Note DATE: 01/21/19 TIME: : Assessment/Plan Lines/Catheters IV Catheter Type (from Nrs): Central Line Valadez in Place (from Nrs): Yes Assessment/Plan Chief Complaint/Hosp Course 1. 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 UTI: 2/2 #2 -abx per sensitivity -frequent bladder emptying/cath care 4. Hypochromic anemia: Status post PRBC transfusion, H&H stable -Monitor and transfuse as needed 5. Sepsis, leukocytosis: WBC normalized; resolved -Supportive (antibiotics, fluids,etc) -As above 6. Electrolyte imbalance: -Optimize electrolytes 7. JACKIE: improved -Limit nephrotoxic meds -Renally dose meds -Per renal 8. Thrombocytopenia mild, -Monitor 9. Transaminitis: Likely 2/2 #5 -Trend 10. NSTEMI: -Cardiac optimization per cards Thank you. Patient seen and examined in collaboration with Dr. Osei Sanford. Subjective 24 Hr Interval Summary Status post extubation yesterday. Feels better. Continues to have abdominal pain but improved. + Bowel function. Pending CT abdomen-patient pulled her NG tube 3 times. No fevers, chills, sob, congested cough, cp, palpitations, keita, dizziness, nausea, vomiting, diarrhea, dysuria. Exam/Review of Systems Vital Signs Vitals Vital Signs Date Temp Pulse Resp B/P (MAP) Pulse Ox O2 O2 Flow FiO2 Time Delivery Rate 01/21/19 81 20 155/89 100 Room Air 09:00 (111) 01/21/19 2.0 08:00 01/21/19 98.3 08:00 01/20/19 30 11:10 Intake and Output 01/20/19 01/20/19 01/21/19 1515:00 23:00 07:00 IntakeIntake Total 350 ml 850 ml 750 ml OutputOutput Total 280 ml 365 ml 365 ml BalanceBalance 70 ml 485 ml 385 ml Exam Free Text/Dictation Constitutional: NAD, well developed; Psych: nl mood/affect, anxiety (Minimal) Head: normocephalic, atraumatic Eyes: nl conjunctiva, EOMI, nl lids, nl sclera ENMT: nl external ears & nose, no nl lips & teeth (poor dentition), mucosa pink and moist Neck: supple, non-tender; No jvd Respiratory: normal air movement; No congested cough, No labored breathing Cardiovascular: regular rate and rhythm, nl pulses; No edema Gastrointestinal: soft, distended (improved-moderate), tender (Diffuse- improved) Genitourinary - Female: nl external genitalia Musculoskeletal: nl extremities to inspection, nl gait and stance Extremities: normal pulses Neurological: nl speech, no normal strength (generalized weakness) Skin: No rash or lesions Lymph: nl lymph nodes Results Result Diagram: 01/21/1939901/21/19399 MASSIMO WATKINS NP Jan 21, 2019 09:32
--- NOTE | 2019-01-21 12:07 | CONS ---
Consult Date/Type/Reason Admit Date/Time Jan 16, 2019 at 23:33 Initial Consult Date 01/17/19 Type of Consult Pulmonary Requesting Provider: NINA HOLT Date/Time of Note DATE: 01/21/19 TIME: 12:05 Subjective Extubated yesterday awake alert and oriented this morning requesting something to drink. Denies any abdominal pain or shortness of breath. Objective Vital Signs Date Temp Pulse Resp B/P (MAP) Pulse Ox O2 O2 Flow FiO2 Time Delivery Rate 01/21/19 67 11:54 01/21/19 20 155/89 100 Room Air 09:00 (111) 01/21/19 2.0 08:00 01/21/19 98.3 08:00 01/20/19 30 11:10 Intake and Output 01/20/19 01/20/19 01/21/19 1515:00 23:00 07:00 IntakeIntake Total 350 ml 850 ml 750 ml OutputOutput Total 280 ml 365 ml 405 ml BalanceBalance 70 ml 485 ml 345 ml Exam GENERAL: Elderly lady appears comfortable at rest VITAL SIGNS: per chart NECK: Supple. No JVD or lymphadenopathy. CARDIAC EXAM: S1, S2. No added sounds or murmurs. CHEST: clear bilaterally, No added sounds, rales or wheezes ABDOMEN: Soft, nontender. No guarding or rebound. EXTREMITIES: No cyanosis, clubbing or edema. NEUROLOGIC: Generalized weakness. No focal deficits. Vent Setting Ventilator Support Mode: CPAP, PS Fraction of Inspired Oxygen pe: 30 Positive End Expiratory Pressu: 5.0 Results/Medications Result Diagram: 01/21/19 0400 01/21/19 0400 Results 24 hrs Laboratory Tests Test 01/20/19 14:08 01/20/19 18:01 01/20/19 22:22 01/21/19 02:06 Bedside Glucose 117 117 123 113 Test 01/21/19 04:00 01/21/19 05:00 01/21/19 05:02 01/21/19 08:50 White Blood Count 10.8 # Red Blood Count 3.08 L Hemoglobin 9.0 L Hematocrit 28.0 L Mean Corpuscular 90.9 Volume Mean Corpuscular 29.2 Hemoglobin Mean Corpuscular 32.1 Hemoglobin Concen t Red Cell 15.5 H Distribution Width Platelet Count 134 #L Mean Platelet 10.4 Volume Immature 3.900 H Granulocytes % Neutrophils % 72.4 Lymphocytes % 13.6 L Monocytes % 7.5 Eosinophils % 2.1 Basophils % 0.5 Nucleated Red 0.0 Blood Cells % Immature 0.420 H Granulocytes # Neutrophils # 7.8 H Lymphocytes # 1.5 Monocytes # 0.8 Eosinophils # 0.2 Basophils # 0.1 Nucleated Red 0.0 Blood Cells # Sodium Level 146 H Potassium Level 3.4 L Chloride Level 117 H Carbon Dioxide 18 L Level Anion Gap 11 Blood Urea 34 H Nitrogen Creatinine 1.27 H Est Glomerular 43 L Filtrat Rate mL/min Glucose Level 100 Calcium Level 8.3 L Phosphorus Level 3.6 Magnesium Level 1.9 Lab Scanned BLOOD TRANSFUSIO Report N Bedside Glucose 100 131 Medications Current Medications Vancomycin HCl (Vanco Iv Per Pharmacy) VANCOMYCIN PER PHARMACY PER PROTOCOL XX ; Start 01/16/19 at 23:30 Albuterol (Ventolin Hfa) 4 puff Q2H RESP THERAPY PRN INH SHORTNESS OF BREATH; Start 01/17/19 at 00:00 Ipratropium [place] (Atrovent Hfa) 4 puff Q2H RESP THERAPY PRN INH SHORTNESS OF BREATH; Start 01/17/19 at 00:00 Acetaminophen (Tylenol Liquid) 650 mg Q6H PRN PO PAIN LEVEL 1-3 OR FEVER; Start 01/17/19 at 00:00 Insulin Aspart (Novolog Insulin Pen) NOVOLOG *MILD* ALGORI... Q4 SC Last administered on 01/18/19at 12:32; Admin Dose 1 UNIT; Start 01/17/19 at 13:00 Miscellaneous Information 1 ea NOTE XX ; Start 01/17/19 at 11:00 Glucose (Glutose) 15 gm Q15M PRN PO DECREASED GLUCOSE; Start 01/17/19 at 11:00 Glucose (Glutose) 22.5 gm Q15M PRN PO DECREASED GLUCOSE; Start 01/17/19 at 11:00 Dextrose (D50w Syringe) 25 ml Q15M PRN IV DECREASED GLUCOSE; Start 01/17/19 at 11:00 Dextrose (D50w Syringe) 50 ml Q15M PRN IV DECREASED GLUCOSE; Start 01/17/19 at 11:00 Glucagon (Glucagen) 1 mg Q15M PRN IM DECREASED GLUCOSE; Start 01/17/19 at 11:00 Glucose (Glutose) 15 gm Q15M PRN BUCCAL DECREASED GLUCOSE; Start 01/17/19 at 11:00 Famotidine (Pepcid Iv) 20 mg DAILY IV Last administered on 01/21/19at 08:52; Admin Dose 20 MG; Start 01/18/19 at 09:00 Collagenase (Santyl) 1 applic DAILY TOP Last administered on 01/20/19at 09:52; Admin Dose 1 APPLIC; Start 01/17/19 at 17:00 Morphine Sulfate (morphine) 1 mg Q3H PRN IV SEVERE PAIN LEVEL 7-10; Start 01/18/19 at 19:00 Hydromorphone HCl (Dilaudid [employer]ILITIES SPECIALIST) 0.2 MG/HR CONTINUOUS RATE ... Q2 IV Last administered on 01/21/19at 05:59; Admin Dose 6 MG; Start 01/18/19 at 19:00 Vancomycin/Sodium Chloride 250 ml @ 125 mls/hr Q24H IVPB Last administered on 01/20/19at 18:05; Admin Dose 125 MLS/HR; Start 01/19/19 at 15:00 Diagnostic Test (Pha) (Accu-Chek) 1 ea Q4 XX ; Start 01/20/19 at 13:00; Status UNV Total Parenteral Nutrition 1,000 ml @ 0 mls/hr Q0M IV ; Start 01/20/19 at 09:39; Status UNV Miscellaneous Information (* Miscellaneous Pharmacy Order) 1 ea ONCE ONCE XX ; Start 01/20/19 at 10:00; Stop 01/20/19 at 10:01; Status UNV Dextrose 1,000 ml @ 50 mls/hr Q20H IV Last administered on 01/21/19at 05:22; Admin Dose 100 MLS/HR; Start 01/20/19 at 11:30 Miscellaneous Information (*Rx Drug Level Order Reminder*) VANCO TROUGH @ 1,400 ON... ONCE ONCE XX ; Start 01/21/19 at 14:00; Stop 01/21/19 at 14:01 Piperacillin Sod/ Tazobactam Sod 100 ml @ 200 mls/hr Q6 IVPB ; Start 01/21/19 at 12:00 Carvedilol (Coreg) 3.125 mg BID PO ; Start 01/21/19 at 09:00 Assessment/Plan Hospital Course (Demo Recall) IMPRESSION AND PLAN: 1. Severe anemia, questionable ongoing chronic bleeding. 2. Marked metabolic acidosis. 3. Severe sepsis. Perforated viscus. Status post acute abdomen patient managed medically not a surgical candidate 4. Encephalopathy, toxic metabolic. 5. History of paraplegia per chart. 6. Renal failure, likely prerenal. Significant metabolic acidosis 7. Non-ST elevation myocardial infarction, likely secondary to hypoperfusion. 8. Hypo-kalemia Plan 1. Stable post extubation. Aspiration precautions 2. Monitor H&H 3. Broad-spectrum antibiotics. 4. Increase free water. Replace electro lites. 5. GI and surgical recommendations regarding perforated bowel 6. DVT and GI prophylaxis. Critical care time 40 minutes. Stable for transfer to telemetry or [facility] HIWOT ODELL MD, [facility] Jan 21, 2019 12:07
--- NOTE | 2019-01-21 12:12 | PN ---
Date/Time of Note Date/Time of Note DATE: 01/21/19 TIME: 12:08 Assessment/Plan VTE Prophylaxis Risk score (from [facility] [place])>0 risk: 7 SCD applied (from [facility] [place]): Yes Pharmacological prophylaxis: NA/contraindicated Pharm contraindication: surgical contra Assessment/Plan Hospital Course 1. Septic shock: Secondary to pneumoperitoneum, UTI, infected wound versus etiology-resolving Culture growing E. coli, blood culture growing gram-negative rods, wound cultures noted Continue broad-spectrum antibiotics of vancomycin and Zosyn Off pressors ID consultation appreciated CT abdomen does show pneumoperitoneum compatible with a perforated hollow viscus, etiology is uncertain, abnormal urinary bladder with possible em physematous cystitis and possible fistula with, Abscess anterior to the bladder is also possible Surgery consultation appreciated, plan is for repeat CT abdomen with p.o. and IV contrast to assess for perforation, patient removed NG tube yesterday and contrast was unable to be given but will be given orally if passes swallow eval Urology consultation appreciated 2. Acute respiratory failure secondary to above Patient extubated 3. Hypokalemia Replete 4. Macrocytic anemia secondary to elevated reticulocyte count Status post 4 units of packed red blood cells 5. Severe leukocytosis-improved 6. Thrombocytosis-resolved Monitor 7. Acute kidney injury secondary to severe septic shock-improving Continue IV fluids Nephrology consultation appreciated 8. Non-STEMI likely type II secondary to severe sepsis Cardiac consultation appreciated 9. Coagulopathy secondary to DIC 10. Hypernatremia D5W Prophylaxis: SCDs, Protonix Result Diagram: 01/21/19 0400 01/21/19 0400 Results 24hrs Laboratory Tests Test 01/20/19 14:08 01/20/19 18:01 01/20/19 22:22 01/21/19 02:06 Bedside Glucose 117 117 123 113 Test 01/21/19 04:00 01/21/19 05:00 01/21/19 05:02 01/21/19 08:50 White Blood Count 10.8 # Red Blood Count 3.08 L Hemoglobin 9.0 L Hematocrit 28.0 L Mean Corpuscular 90.9 Volume Mean Corpuscular 29.2 Hemoglobin Mean Corpuscular 32.1 Hemoglobin Concen t Red Cell 15.5 H Distribution Width Platelet Count 134 #L Mean Platelet 10.4 Volume Immature 3.900 H Granulocytes % Neutrophils % 72.4 Lymphocytes % 13.6 L Monocytes % 7.5 Eosinophils % 2.1 Basophils % 0.5 Nucleated Red 0.0 Blood Cells % Immature 0.420 H Granulocytes # Neutrophils # 7.8 H Lymphocytes # 1.5 Monocytes # 0.8 Eosinophils # 0.2 Basophils # 0.1 Nucleated Red 0.0 Blood Cells # Sodium Level 146 H Potassium Level 3.4 L Chloride Level 117 H Carbon Dioxide 18 L Level Anion Gap 11 Blood Urea 34 H Nitrogen Creatinine 1.27 H Est Glomerular 43 L Filtrat Rate mL/min Glucose Level 100 Calcium Level 8.3 L Phosphorus Level 3.6 Magnesium Level 1.9 Lab Scanned BLOOD TRANSFUSIO Report N Bedside Glucose 100 131 Subjective 24 Hr Interval Summary Constitutional: no complaints Exam/Review of Systems Exam Vitals Vital Signs Date Temp Pulse Resp B/P (MAP) Pulse Ox O2 O2 Flow FiO2 Time Delivery Rate 01/21/19 67 11:54 01/21/19 20 155/89 100 Room Air 09:00 (111) 01/21/19 2.0 08:00 01/21/19 98.3 08:00 01/20/19 30 11:10 Intake and Output 01/20/19 01/20/19 01/21/19 1515:00 23:00 07:00 IntakeIntake Total 350 ml 850 ml 750 ml OutputOutput Total 280 ml 365 ml 405 ml BalanceBalance 70 ml 485 ml 345 ml Constitutional: alert Respiratory: clear to auscultation Cardiovascular: regular rate and rhythm Gastrointestinal: soft; No distended Musculoskeletal: nl extremities to inspection Results Results 24hrs Laboratory Tests Test 01/20/19 14:08 01/20/19 18:01 01/20/19 22:22 01/21/19 02:06 Bedside Glucose 117 117 123 113 Test 01/21/19 04:00 01/21/19 05:00 01/21/19 05:02 01/21/19 08:50 White Blood Count 10.8 # Red Blood Count 3.08 L Hemoglobin 9.0 L Hematocrit 28.0 L Mean Corpuscular 90.9 Volume Mean Corpuscular 29.2 Hemoglobin Mean Corpuscular 32.1 Hemoglobin Concen t Red Cell 15.5 H Distribution Width Platelet Count 134 #L Mean Platelet 10.4 Volume Immature 3.900 H Granulocytes % Neutrophils % 72.4 Lymphocytes % 13.6 L Monocytes % 7.5 Eosinophils % 2.1 Basophils % 0.5 Nucleated Red 0.0 Blood Cells % Immature 0.420 H Granulocytes # Neutrophils # 7.8 H Lymphocytes # 1.5 Monocytes # 0.8 Eosinophils # 0.2 Basophils # 0.1 Nucleated Red 0.0 Blood Cells # Sodium Level 146 H Potassium Level 3.4 L Chloride Level 117 H Carbon Dioxide 18 L Level Anion Gap 11 Blood Urea 34 H Nitrogen Creatinine 1.27 H Est Glomerular 43 L Filtrat Rate mL/min Glucose Level 100 Calcium Level 8.3 L Phosphorus Level 3.6 Magnesium Level 1.9 Lab Scanned BLOOD TRANSFUSIO Report N Bedside Glucose 100 131 Medications Medication Current Medications Vancomycin HCl (Vanco Iv Per Pharmacy) VANCOMYCIN PER PHARMACY PER PROTOCOL XX ; Start 01/16/19 at 23:30 Albuterol (Ventolin Hfa) 4 puff Q2H RESP THERAPY PRN INH SHORTNESS OF BREATH; Start 01/17/19 at 00:00 Ipratropium [place] (Atrovent Hfa) 4 puff Q2H RESP THERAPY PRN INH SHORTNESS OF BREATH; Start 01/17/19 at 00:00 Acetaminophen (Tylenol Liquid) 650 mg Q6H PRN PO PAIN LEVEL 1-3 OR FEVER; Start 01/17/19 at 00:00 Insulin Aspart (Novolog Insulin Pen) NOVOLOG *MILD* ALGORI... Q4 SC Last ad ministered on 01/18/19at 12:32; Admin Dose 1 UNIT; Start 01/17/19 at 13:00 Miscellaneous Information 1 ea NOTE XX ; Start 01/17/19 at 11:00 Glucose (Glutose) 15 gm Q15M PRN PO DECREASED GLUCOSE; Start 01/17/19 at 11:00 Glucose (Glutose) 22.5 gm Q15M PRN PO DECREASED GLUCOSE; Start 01/17/19 at 11:00 Dextrose (D50w Syringe) 25 ml Q15M PRN IV DECREASED GLUCOSE; Start 01/17/19 at 11:00 Dextrose (D50w Syringe) 50 ml Q15M PRN IV DECREASED GLUCOSE; Start 01/17/19 at 11:00 Glucagon (Glucagen) 1 mg Q15M PRN IM DECREASED GLUCOSE; Start 01/17/19 at 11:00 Glucose (Glutose) 15 gm Q15M PRN BUCCAL DECREASED GLUCOSE; Start 01/17/19 at 11:00 Famotidine (Pepcid Iv) 20 mg DAILY IV Last administered on 01/21/19at 08:52; Admin Dose 20 MG; Start 01/18/19 at 09:00 Collagenase (Santyl) 1 applic DAILY TOP Last administered on 01/20/19at 09:52; Admin Dose 1 APPLIC; Start 01/17/19 at 17:00 Morphine Sulfate (morphine) 1 mg Q3H PRN IV SEVERE PAIN LEVEL 7-10; Start 01/18/19 at 19:00 Hydromorphone HCl (Dilaudid ADMINISTRATIVE PROCESSOR) 0.2 MG/HR CONTINUOUS RATE ... Q2 IV Last administered on 01/21/19at 05:59; Admin Dose 6 MG; Start 01/18/19 at 19:00 Vancomycin/Sodium Chloride 250 ml @ 125 mls/hr Q24H IVPB Last administered on 01/20/19at 18:05; Admin Dose 125 MLS/HR; Start 01/19/19 at 15:00 Diagnostic Test (Pha) (Accu-Chek) 1 ea Q4 XX ; Start 01/20/19 at 13:00; Status UNV Total Parenteral Nutrition 1,000 ml @ 0 mls/hr Q0M IV ; Start 01/20/19 at 09:39; Status UNV Miscellaneous Information (* Miscellaneous Pharmacy Order) 1 ea ONCE ONCE XX ; Start 01/20/19 at 10:00; Stop 01/20/19 at 10:01; Status UNV Dextrose 1,000 ml @ 50 mls/hr Q20H IV Last administered on 01/21/19at 05:22; Admin Dose 100 MLS/HR; Start 01/20/19 at 11:30 Miscellaneous Information (*Rx Drug Level Order Reminder*) VANCO TROUGH @ 1,400 ON... ONCE ONCE XX ; Start 01/21/19 at 14:00; Stop 01/21/19 at 14:01 Piperacillin Sod/ Tazobactam Sod 100 ml @ 200 mls/hr Q6 IVPB ; Start 01/21/19 at 12:00 Carvedilol (Coreg) 3.125 mg BID PO ; Start 01/21/19 at 09:00 ALLISON WOLFF Jan 21, 2019 12:12
[2019-01-21] MEDS: COLLAGENASE 5 GM (UD JAR) TOP SCH (13:10)
[2019-01-21] MEDS: PIPER-TAZO 3.375 GM IV (PMX) 100 ML IVPB SCH ×2 (13:11→17:41)
[2019-01-21] MEDS: hydrALAzine 20 MG INJ IV PRN (15:11)
[2019-01-21] MEDS: VANCOMYCIN 750 MG (PMX) 250 ML IVPB SCH (15:57)
[2019-01-21] MEDS ORDERED: IOHEXOL 14.3 MG(I)/ML (ADULT) BTL PO ONE (16:30)
[2019-01-21] MEDS: ACCU-CHEK XX SCH ×3 (17:00→21:00)
--- NOTE | 2019-01-21 18:49 | CONS ---
Consult Date/Type/Reason Admit Date/Time Jan 16, 2019 at 23:33 Initial Consult Date 01/17/19 Type of Consultation: Urology Reason for Consultation Urinary tract infection, emphysematous cystitis rule out colovesical fistula Requesting Provider: NINA HOLT Date/Time of Note DATE: 01/21/19 TIME: 18:45 Subjective Patient is awake and appears weak and tired. Objective Vitals Vital Signs Date Temp Pulse Resp B/P (MAP) Pulse Ox O2 O2 Flow FiO2 Time Delivery Rate 01/21/19 18 17:00 01/21/19 83 153/87 16:38 (109) 01/21/19 98.6 95 Room Air 12:30 01/21/19 2.0 08:00 01/20/19 30 11:10 Intake and Output 01/20/19 01/20/19 01/21/19 1515:00 23:00 07:00 IntakeIntake Total 350 ml 850 ml 750 ml OutputOutput Total 280 ml 365 ml 405 ml BalanceBalance 70 ml 485 ml 345 ml Exam The May catheter is draining clear urine Results/Medications Result Diagram: 01/21/19 0400 01/21/19 0400 Results 24 hrs Laboratory Tests Test 01/20/19 22:22 01/21/19 02:06 01/21/19 04:00 01/21/19 05:00 Bedside Glucose 123 113 White Blood Count 10.8 # Red Blood Count 3.08 L Hemoglobin 9.0 L Hematocrit 28.0 L Mean Corpuscular 90.9 Volume Mean Corpuscular 29.2 Hemoglobin Mean Corpuscular 32.1 Hemoglobin Concen t Red Cell 15.5 H Distribution Width Platelet Count 134 #L Mean Platelet 10.4 Volume Immature 3.900 H Granulocytes % Neutrophils % 72.4 Lymphocytes % 13.6 L Monocytes % 7.5 Eosinophils % 2.1 Basophils % 0.5 Nucleated Red 0.0 Blood Cells % Immature 0.420 H Granulocytes # Neutrophils # 7.8 H Lymphocytes # 1.5 Monocytes # 0.8 Eosinophils # 0.2 Basophils # 0.1 Nucleated Red 0.0 Blood Cells # Sodium Level 146 H Potassium Level 3.4 L Chloride Level 117 H Carbon Dioxide 18 L Level Anion Gap 11 Blood Urea 34 H Nitrogen Creatinine 1.27 H Est Glomerular 43 L Filtrat Rate mL/min Glucose Level 100 Calcium Level 8.3 L Phosphorus Level 3.6 Magnesium Level 1.9 Lab Scanned BLOOD TRANSFUSIO Report N Test 01/21/19 05:02 01/21/19 08:50 01/21/19 13:15 01/21/19 13:20 Bedside Glucose 100 131 91 Vancomycin Level 13.9 Trough Test 01/21/19 17:42 Bedside Glucose 92 Home Meds Reported Medications Gabapentin* (Gabapentin*) 100 Mg Capsule, 100 MG PO TID, #90 CAP 01/20/18 Medications Current Medications Vancomycin HCl (Vanco Iv Per Pharmacy) VANCOMYCIN PER PHARMACY PER PROTOCOL XX ; Start 01/16/19 at 23:30 Albuterol (Ventolin Hfa) 4 puff Q2H RESP THERAPY PRN INH SHORTNESS OF BREATH; Start 01/17/19 at 00:00 Ipratropium [place] (Atrovent Hfa) 4 puff Q2H RESP THERAPY PRN INH SHORTNESS OF BREATH; Start 01/17/19 at 00:00 Acetaminophen (Tylenol Liquid) 650 mg Q6H PRN PO PAIN LEVEL 1-3 OR FEVER; Start 01/17/19 at 00:00 Insulin Aspart (Novolog Insulin Pen) NOVOLOG *MILD* ALGORI... Q4 SC Last administered on 01/18/19at 12:32; Admin Dose 1 UNIT; Start 01/17/19 at 13:00 Miscellaneous Information 1 ea NOTE XX ; Start 01/17/19 at 11:00 Glucose (Glutose) 15 gm Q15M PRN PO DECREASED GLUCOSE; Start 01/17/19 at 11:00 Glucose (Glutose) 22.5 gm Q15M PRN PO DECREASED GLUCOSE; Start 01/17/19 at 11:00 Dextrose (D50w Syringe) 25 ml Q15M PRN IV DECREASED GLUCOSE; Start 01/17/19 at 11:00 Dextrose (D50w Syringe) 50 ml Q15M PRN IV DECREASED GLUCOSE; Start 01/17/19 at 11:00 Glucagon (Glucagen) 1 mg Q15M PRN IM DECREASED GLUCOSE; Start 01/17/19 at 11:00 Glucose (Glutose) 15 gm Q15M PRN BUCCAL DECREASED GLUCOSE; Start 01/17/19 at 11:00 Famotidine (Pepcid Iv) 20 mg DAILY IV Last administered on 01/21/19at 08:52; Admin Dose 20 MG; Start 01/18/19 at 09:00 Collagenase (Santyl) 1 applic DAILY TOP Last administered on 01/21/19at 13:10; Admin Dose 1 APPLIC; Start 01/17/19 at 17:00 Morphine Sulfate (morphine) 1 mg Q3H PRN IV SEVERE PAIN LEVEL 7-10; Start 01/18/19 at 19:00 Hydromorphone HCl (Dilaudid MARINE MECHANIC) 0.2 MG/HR CONTINUOUS RATE ... Q2 IV Last administered on 01/21/19at 05:59; Admin Dose 6 MG; Start 01/18/19 at 19:00 Vancomycin/Sodium Chloride 250 ml @ 125 mls/hr Q24H IVPB Last administered on 01/21/19at 15:57; Admin Dose 125 MLS/HR; Start 01/19/19 at 15:00; Stop 01/21/19 at 19:00 Diagnostic Test (Pha) (Accu-Chek) 1 ea Q4 XX ; Start 01/20/19 at 13:00; Status UNV Total Parenteral Nutrition 1,000 ml @ 0 mls/hr Q0M IV ; Start 01/20/19 at 09:39; Status UNV Miscellaneous Information (* Miscellaneous Pharmacy Order) 1 ea ONCE ONCE XX ; Start 01/20/19 at 10:00; Stop 01/20/19 at 10:01; Status UNV Dextrose 1,000 ml @ 50 mls/hr Q20H IV Last administered on 01/21/19at 05:22; Admin Dose 100 MLS/HR; Start 01/20/19 at 11:30 Piperacillin Sod/ Tazobactam Sod 100 ml @ 200 mls/hr Q6 IVPB Last administered on 01/21/19at 17:41; Admin Dose 200 MLS/HR; Start 01/21/19 at 12:00 Carvedilol (Coreg) 3.125 mg BID PO ; Start 01/21/19 at 09:00 Hydralazine HCl (Apresoline) 10 mg Q4H PRN IV SBP >170 Last administered on 01/21/19at 15:11; Admin Dose 10 MG; Start 01/21/19 at 14:30 Vancomycin HCl 250 ml @ 125 mls/hr Q24H IVPB ; Start 01/22/19 at 16:00 Assessment/Plan Hospital Course (Demo Recall) 58-year-old female with a past medical history of ambulatory dysfunction was found confused and weak by her sister at home. Patient was brought in via EMS and was noted to be confused but she was answering questions appropriately according to the ER doctor. Patient in the emergency department was also noted to be hypothermic and given her low GCS score patient was emergently intubated. She was found to have severe anemia with a hemoglobin of 2 along with lactic acidosis and renal failure. The patient was transfused and had a CT scan of the abdomen and pelvis that showed: 1. Pneumoperitoneum compatible with a perforated hollow viscus, the etiology of which is uncertain, severe constipation pattern is present. 2. Abnormal urinary bladder with a May catheter and gas both within the bladder and the bladder wall unable to exclude emphysematous cystitis and possibly a fistula with the adjacent colon. An abscess anterior to the urinary bladder is the possibility on this exam limited by the lack of intravenous contrast media. 3. Gallbladder distension with common bile duct dilatation but no evidence of calcified gallstones, findings of uncertain significance. 4. Gas is present within the right renal pelvis and right ureter for urinary tract infection with mild right hydroureter. 5. Mild splenomegaly. 6. Adrenal gland hyperplasia greater on the left. 7. Anasarca pattern. 8. Chronic T11 compression fracture deformity. The may catheter is draining clear urine. The urine culture showed: URINE CULTURE Final Organism 1 ESCHERICHIA COLI COLONY COUNT >100,000 CFU/ml E COLI M.I.C. RX --------- --- AMIKACIN <=2 S AMPICILLIN >=32 R CEFAZOLIN <=4 S CEFOTAXIME S CIPROFLOXACIN >=4 R GENTAMICIN >=16 R LEVOFLOXACIN >=8 R NITROFURANTOIN 32 S TOBRAMYCIN 8 I TRIMETHOPRIM/SULFAMETHOXAZOLE <=20 S PIPERACILLIN/TAZOBACTAM <=4 S Impression: urinary tract infection and possible colovesical fistula. Recommendation: For now keep the May catheter and continue the Zosyn and vancomycin. Patient was going to have a CT scan of abdomen and pelvis with oral contrast but she pulled out the NG tube 3 times. Urologically keep the May catheter in for now and continue her antibiotic TINO RIVERA MD Jan 21, 2019 18:49
[2019-01-21] MEDS ORDERED: IOHEXOL 300MG/ML 150 ML BTL ONE (19:11)
[2019-01-21] MEDS ORDERED: SOD CHLORIDE 0.9% 100 ML ONE (19:11)
[2019-01-22] MEDS: INSULIN ASPART [NOVOLOG] 3 ML PEN SC SCH ×5 (00:30→17:00)
[2019-01-22] MEDS: PIPER-TAZO 3.375 GM IV (PMX) 100 ML IVPB SCH ×4 (00:30→18:38)
[2019-01-22] MEDS: ACCU-CHEK XX SCH ×6 (00:31→21:00)
[2019-01-22] MEDS: HYDROmorphONE 0.2 MG/ML PCA IV SCH ×5 (01:00→09:00)
[2019-01-22 02:00] VITALS: BP 156/96; PULSE 94; RESP 18
[2019-01-22] MEDS ORDERED: IOHEXOL 14.3 MG(I)/ML (ADULT) BTL PO ONE (03:30)
[2019-01-22] MEDS: DEXTROSE 5% 1,000 ML IV SCH ×2 (05:10→22:58)
--- NOTE | 2019-01-22 07:02 | CONS ---
Assessment/Plan Assessment/Plan Hospital Course (Demo Recall) 1) pneumoperitoneum and sepsis could be related to pt taking motrin for some pain continue with vanco/zosyn at present to renally dose them await decision by family regarding surgery vs hospice 01/18 - continue with vanco/zosyn CoNS in blood, only one bottle, likely represents contamination e.coli in urine is sensitive to the zosyn pt has EtOH abuse lactic acid has normalized 01/19 - MRSA in nasal area, likely perf is gastric or duodenal to continue with vanco at present and zosyn decrease in platelets noted, may need to change vanco if trend continues 01/20 - no significant change a.m. labs are pending due to blood tx overnight on vanco/zosyn pt has GNR in blood cx, ID is pending but sensitive to zosyn 01/21 - increase dose of zosyn as renal function is further improved awaits CT abd/pelv repeat to see if pt can start to eat alcaligenes was also in blood cx and is a stool bacteria 01/22 - pt passed swallow eval for oral contrast, but CT is still pending continue with vanco/zosyn at present 2)severe anemia pt is being transfused only smears of stool since admission to get hemoccult 01/18 - Hgb is more stable 01/19 - drop in Hgb again, will need blood tx again 01/20 - pt tx again, a.m. labs are pending 01/21 - Hgb is at 9 now 01/22 - Hgb is stable 3) ARF with pyuria and hematuria (e.coli in urine) improving with hydration and blood tx await urine cx results 01/18 - improving urine output and creatinine urine cx has e.coli that is sensitive to zosyn renal u/s suggests hydro on the R and possible renal clot or debris on L 01/19 - further improvement in creatinine on zosyn for e.coli in urine 01/21 - further improvement in renal function 01/22 - creatinine almost normal 4) elevated troponins likely due to stress from severe anemia 5) hepatitis again likely due to sepsis and severe anemia check hep serologies 01/18 - hep serologies are pending 01/19 - neg hep serologies and HIV LFT's are trending down 6) L hip eschar/decubitus unstageable wound cx was ordered 01/18 - wound cx has not been done, nurse was informed 01/19 - wound cx was obtained and is pending 01/20 - wound cx has GPC growing 01/21 - MRSA in wound cx from hip, continue with vanco at present platelets are improving 01/22 - MRSA and alcaligenes was in wound cx ESR is extremely high, pt will likely need MRI of L hip area to see if osteomyelitis is present when pt is more stable 7) hypoalbuminemia pt came in with low albumin, she has likely been sick or not eating well for a while 8) CoNS bacteremia 01/18 - only one bottle has CoNS, likely this is contamination continue with vanco at present, await final wound cx results 9) decrease in platelets 01/19 - consider change of vanco if trend continues 01/20 - her MRSA is sensitive to doxy so could change vanco to that 01/21 - platelets are improved 01/22 - platelets are WNL 10) GNR in original blood cx (alcaligenes faecalis) 01/20 - ID is pending but it is sensitive to zosyn 01/21 - alcaligenes is a stool bacteria and likely related to her peritonitis continue with zosyn 01/22 - alcaligines was also in wound cx when pt is eating and more stable will order MRI of L hip to verify no osteo or abscess is present Consultation Date/Type/Reason Admit Date/Time Jan 16, 2019 at 23:33 Initial Consult Date 01/17/19 Type of Consult ID Requesting Provider: NINA HOLT Date/Time of Note DATE: 01/22/19 TIME: 06:56 24 HR Interval Summary Free Text/Dictation pt is crying because she is so hungry she denies abd pain other than hunger pain no V no stools in last 24 hours breathing is ok Exam/Review of Systems Exam Vitals Vital Signs Date Temp Pulse Resp B/P (MAP) Pulse Ox O2 O2 Flow FiO2 Time Delivery Rate 01/22/19 18 05:00 01/22/19 98.2 94 156/96 96 02:00 (116) 01/21/19 Room Air 12:30 01/21/19 2.0 08:00 01/20/19 30 11:10 Intake and Output 01/21/19 01/21/19 01/22/19 1515:00 23:00 07:00 IntakeIntake Total 0 ml 750 ml 900 ml OutputOutput Total 340 ml 400 ml BalanceBalance -340 ml 350 ml 900 ml Constitutional: alert Respiratory: clear to auscultation Cardiovascular: regular rate and rhythm Gastrointestinal: soft, non-tender Results Result Diagram: 01/22/19 0445 01/22/19 0445 Results 24hrs Laboratory Tests Test 01/21/19 08:50 01/21/19 13:15 01/21/19 13:20 01/21/19 17:42 Bedside Glucose 131 91 92 Vancomycin Level 13.9 Trough Test 01/21/19 21:15 01/22/19 00:30 01/22/19 04:45 01/22/19 05:10 Bedside Glucose 112 97 90 White Blood Count 11.6 H Red Blood Count 3.15 L Hemoglobin 9.1 L Hematocrit 28.3 L Mean Corpuscular 89.8 Volume Mean Corpuscular 28.9 L Hemoglobin Mean Corpuscular 32.2 Hemoglobin Concent Red Cell 15.5 H Distribution Width Platelet Count 166 # Mean Platelet Volume 10.3 Immature 3.300 H Granulocytes % Neutrophils % 76.7 Lymphocytes % 11.7 L Monocytes % 5.4 Eosinophils % 2.5 Basophils % 0.4 Nucleated Red Blood 0.0 Cells % Immature 0.380 H Granulocytes # Neutrophils # 8.9 H Lymphocytes # 1.4 Monocytes # 0.6 Eosinophils # 0.3 Basophils # 0.1 Nucleated Red Blood 0.0 Cells # Sodium Level 141 Potassium Level 3.2 L Chloride Level 116 H Carbon Dioxide Level 17 L Anion Gap 8 Blood Urea Nitrogen 25 H Creatinine 1.15 H Est Glomerular 48 L Filtrat Rate mL/min Glucose Level 91 Calcium Level 8.2 L Phosphorus Level 3.2 Magnesium Level 2.1 Medications Medication Current Medications Vancomycin HCl (Vanco Iv Per Pharmacy) VANCOMYCIN PER PHARMACY PER PROTOCOL XX ; Start 01/16/19 at 23:30 Albuterol (Ventolin Hfa) 4 puff Q2H RESP THERAPY PRN INH SHORTNESS OF BREATH; Start 01/17/19 at 00:00 Ipratropium [place] (Atrovent Hfa) 4 puff Q2H RESP THERAPY PRN INH SHORTNESS OF BREATH; Start 01/17/19 at 00:00 Acetaminophen (Tylenol Liquid) 650 mg Q6H PRN PO PAIN LEVEL 1-3 OR FEVER; S tart 3/25/19 at 00:00 Insulin Aspart (Novolog Insulin Pen) NOVOLOG *MILD* ALGORI... Q4 SC Last admi nistered on 01/18/19at 12:32; Admin Dose 1 UNIT; Start 01/17/19 at 13:00 Miscellaneous Information 1 ea NOTE XX ; Start 01/17/19 at 11:00 Glucose (Glutose) 15 gm Q15M PRN PO DECREASED GLUCOSE; Start 01/17/19 at 11:00 Glucose (Glutose) 22.5 gm Q15M PRN PO DECREASED GLUCOSE; Start 01/17/19 at 11:00 Dextrose (D50w Syringe) 25 ml Q15M PRN IV DECREASED GLUCOSE; Start 01/17/19 at 11:00 Dextrose (D50w Syringe) 50 ml Q15M PRN IV DECREASED GLUCOSE; Start 01/17/19 at 11:00 Glucagon (Glucagen) 1 mg Q15M PRN IM DECREASED GLUCOSE; Start 01/17/19 at 11:00 Glucose (Glutose) 15 gm Q15M PRN BUCCAL DECREASED GLUCOSE; Start 01/17/19 at 11:00 Famotidine (Pepcid Iv) 20 mg DAILY IV Last administered on 01/21/19at 08:52; Admin Dose 20 MG; Start 01/18/19 at 09:00 Collagenase (Santyl) 1 applic DAILY TOP Last administered on 01/21/19at 13:10; Admin Dose 1 APPLIC; Start 01/17/19 at 17:00 Morphine Sulfate (morphine) 1 mg Q3H PRN IV SEVERE PAIN LEVEL 7-10; Start 01/18/19 at 19:00 Hydromorphone HCl (Dilaudid DISTRICT EXTENSION SERVICE AGENT) 0.2 MG/HR CONTINUOUS RATE ... Q2 IV Last administered on 01/21/19at 05:59; Admin Dose 6 MG; Start 01/18/19 at 19:00 Diagnostic Test (Pha) (Accu-Chek) 1 ea Q4 XX ; Start 01/20/19 at 13:00; Status UNV Total Parenteral Nutrition 1,000 ml @ 0 mls/hr Q0M IV ; Start 01/20/19 at 09:39; Status UNV Miscellaneous Information (* Miscellaneous Pharmacy Order) 1 ea ONCE ONCE XX ; Start 01/20/19 at 10:00; Stop 01/20/19 at 10:01; Status UNV Dextrose 1,000 ml @ 50 mls/hr Q20H IV Last administered on 01/22/19at 05:10; Admin Dose 50 MLS/HR; Start 01/20/19 at 11:30 Piperacillin Sod/ Tazobactam Sod 100 ml @ 200 mls/hr Q6 IVPB Last administered on 01/22/19at 05:10; Admin Dose 200 MLS/HR; Start 01/21/19 at 12:00 Carvedilol (Coreg) 3.125 mg BID PO ; Start 01/21/19 at 09:00 Hydralazine HCl (Apresoline) 10 mg Q4H PRN IV SBP >170 Last administered on 01/21/19at 15:11; Admin Dose 10 MG; Start 01/21/19 at 14:30 Vancomycin HCl 250 ml @ 125 mls/hr Q24H IVPB ; Start 01/22/19 at 16:00 PATSY LEVY MD Jan 22, 2019 07:02
--- NOTE | 2019-01-22 07:56 | PN ---
Date/Time of Note Date/Time of Note DATE: 01/22/19 TIME: 07:55 Assessment/Plan VTE Prophylaxis Risk score (from Ns)>0 risk: 8 SCD applied (from [facility] [place]): No SCD contraindicated: other Pharmacological prophylaxis: other Lines/Catheters IV Catheter Type (from [facility]): Central Line Central line still needed: Yes Urinary Cath still in place: Yes Reason Cath still needed: urinary retention Assessment/Plan Hospital Course renal follow up SUBJECTIVE: The patient is clinically improved, currently extubated. Urinary output has been adequate. No other events noted. d/w Dr Kirk OBJECTIVE: HEENT: Head is normocephalic. NECK: Supple. HEART: Regular rate. LUNGS: Show diminished breath sounds at the base. ABDOMEN: Soft, nontender to palpation without rebound or guarding. EXTREMITIES: Negative for clubbing, cyanosis. Trace edema. DERMATOLOGIC: No rashes. MUSCULOSKELETAL: No joint effusion. NEUROLOGIC: No change in exam. IMAGING STUDIES: The patient's chest x-ray and imaging studies have been reviewed. MEDICATIONS: The patient's medications have been reviewed. Cultures have been reviewed. ASSESSMENT AND PLAN: 1. Nonoliguric acute kidney injury with unknown baseline creatinine. Etiology of acute kidney injury is secondary to acute tubular necrosis due to volume depletion, shock, NSAID use. The patient's renal function has been improving. Continue current treatment plans, supportive care, renally dose all medicines. 2. Hypernatremia. The patient's sodium levels have been improving. Continue D5 water, we will deescalate IV fluids. 3. Hypokalemia. Replete with potassium chloride. 4. Metabolic acidosis. Etiology is multifactorial secondary to acute kidney injury, hypercatabolic state. The patient is compensated. ABG was reviewed. The patient is status post 1 amp of bicarbonate. We will continue to monitor. Bicarbonate levels have has slowly been improving. 5. Sepsis, status post shock secondary to pneumoperitoneum, urinary tract infection. Continue broad spectrum antibiotics, IV fluids. 6. Respiratory failure. The patient is status post extubation. Continue to monitor. 7. Perforated viscus. The patient was seen by general surgery, no plan for surgical intervention at this time. 8. Leukocytosis from sepsis, anemia, improving. 9. Elevated troponin likely from non-ST elevation myocardial infarction type 2. Continue to monitor. Follow up with cardiology. 10. Acute encephalopathy. Etiology is toxic metabolic. 11. Decubitus wound. Multiple. Continue wound care. Result Diagram: 01/22/19 0445 01/22/19 0445 Results 24hrs Laboratory Tests Test 01/21/19 08:50 01/21/19 13:15 01/21/19 13:20 01/21/19 17:42 Bedside Glucose 131 91 92 Vancomycin Level 13.9 Trough Test 01/21/19 21:15 01/22/19 00:30 01/22/19 04:45 01/22/19 05:10 Bedside Glucose 112 97 90 White Blood Count 11.6 H Red Blood Count 3.15 L Hemoglobin 9.1 L Hematocrit 28.3 L Mean Corpuscular 89.8 Volume Mean Corpuscular 28.9 L Hemoglobin Mean Corpuscular 32.2 Hemoglobin Concent Red Cell 15.5 H Distribution Width Platelet Count 166 # Mean Platelet Volume 10.3 Immature 3.300 H Granulocytes % Neutrophils % 76.7 Lymphocytes % 11.7 L Monocytes % 5.4 Eosinophils % 2.5 Basophils % 0.4 Nucleated Red Blood 0.0 Cells % Immature 0.380 H Granulocytes # Neutrophils # 8.9 H Lymphocytes # 1.4 Monocytes # 0.6 Eosinophils # 0.3 Basophils # 0.1 Nucleated Red Blood 0.0 Cells # Sodium Level 141 Potassium Level 3.2 L Chloride Level 116 H Carbon Dioxide Level 17 L Anion Gap 8 Blood Urea Nitrogen 25 H Creatinine 1.15 H Est Glomerular 48 L Filtrat Rate mL/min Glucose Level 91 Calcium Level 8.2 L Phosphorus Level 3.2 Magnesium Level 2.1 Exam/Review of Systems Exam Vitals Vital Signs Date Temp Pulse Resp B/P (MAP) Pulse Ox O2 O2 Flow FiO2 Time Delivery Rate 01/22/19 18 05:00 01/22/19 98.2 94 156/96 96 02:00 (116) 01/21/19 Room Air 12:30 01/21/19 2.0 08:00 01/20/19 30 11:10 Intake and Output 01/21/19 01/21/19 01/22/19 1515:00 23:00 07:00 IntakeIntake Total 0 ml 750 ml 900 ml OutputOutput Total 340 ml 400 ml 900 ml BalanceBalance -340 ml 350 ml 0 ml Results Results 24hrs Laboratory Tests Test 3/29/19 08:50 01/21/19 13:15 01/21/19 13:20 01/21/19 17:42 Bedside Glucose 131 91 92 Vancomycin Level 13.9 Trough Test 01/21/19 21:15 01/22/19 00:30 01/22/19 04:45 01/22/19 05:10 Bedside Glucose 112 97 90 White Blood Count 11.6 H Red Blood Count 3.15 L Hemoglobin 9.1 L Hematocrit 28.3 L Mean Corpuscular 89.8 Volume Mean Corpuscular 28.9 L Hemoglobin Mean Corpuscular 32.2 Hemoglobin Concent Red Cell 15.5 H Distribution Width Platelet Count 166 # Mean Platelet Volume 10.3 Immature 3.300 H Granulocytes % Neutrophils % 76.7 Lymphocytes % 11.7 L Monocytes % 5.4 Eosinophils % 2.5 Basophils % 0.4 Nucleated Red Blood 0.0 Cells % Immature 0.380 H Granulocytes # Neutrophils # 8.9 H Lymphocytes # 1.4 Monocytes # 0.6 Eosinophils # 0.3 Basophils # 0.1 Nucleated Red Blood 0.0 Cells # Sodium Level 141 Potassium Level 3.2 L Chloride Level 116 H Carbon Dioxide Level 17 L Anion Gap 8 Blood Urea Nitrogen 25 H Creatinine 1.15 H Est Glomerular 48 L Filtrat Rate mL/min Glucose Level 91 Calcium Level 8.2 L Phosphorus Level 3.2 Magnesium Level 2.1 Medications Medication Current Medications Vancomycin HCl (Vanco Iv Per Pharmacy) VANCOMYCIN PER PHARMACY PER PROTOCOL XX ; Start 01/16/19 at 23:30 Albuterol (Ventolin Hfa) 4 puff Q2H RESP THERAPY PRN INH SHORTNESS OF BREATH; Start 01/17/19 at 00:00 Ipratropium [place] (Atrovent Hfa) 4 puff Q2H RESP THERAPY PRN INH SHORTNESS OF BREATH; Start 01/17/19 at 00:00 Acetaminophen (Tylenol Liquid) 650 mg Q6H PRN PO PAIN LEVEL 1-3 OR FEVER; Start 01/17/19 at 00:00 Insulin Aspart (Novolog Insulin Pen) NOVOLOG *MILD* ALGORI... Q4 SC Last a dministered on 01/18/19at 12:32; Admin Dose 1 UNIT; Start 01/17/19 at 13:00 Miscellaneous Information 1 ea NOTE XX ; Start 01/17/19 at 11:00 Glucose (Glutose) 15 gm Q15M PRN PO DECREASED GLUCOSE; Start 01/17/19 at 11:00 Glucose (Glutose) 22.5 gm Q15M PRN PO DECREASED GLUCOSE; Start 01/17/19 at 11:0 0 Dextrose (D50w Syringe) 25 ml Q15M PRN IV DECREASED GLUCOSE; Start 01/17/19 at 11:00 Dextrose (D50w Syringe) 50 ml Q15M PRN IV DECREASED GLUCOSE; Start 01/17/19 at 11:00 Glucagon (Glucagen) 1 mg Q15M PRN IM DECREASED GLUCOSE; Start 01/17/19 at 11:00 Glucose (Glutose) 15 gm Q15M PRN BUCCAL DECREASED GLUCOSE; Start 01/17/19 at 11:00 Famotidine (Pepcid Iv) 20 mg DAILY IV Last administered on 01/21/19at 08:52; Admin Dose 20 MG; Start 01/18/19 at 09:00 Collagenase (Santyl) 1 applic DAILY TOP Last administered on 01/21/19at 13:10; Admin Dose 1 APPLIC; Start 01/17/19 at 17:00 Morphine Sulfate (morphine) 1 mg Q3H PRN IV SEVERE PAIN LEVEL 7-10; Start 01/18/19 at 19:00 Hydromorphone HCl (Dilaudid [employer]ULT SERVICES [employer]IAN) 0.2 MG/HR CONTINUOUS RATE ... Q2 IV Last administered on 01/21/19at 05:59; Admin Dose 6 MG; Start 01/18/19 at 19:00 Diagnostic Test (Pha) (Accu-Chek) 1 ea Q4 XX ; Start 01/20/19 at 13:00; Status UNV Total Parenteral Nutrition 1,000 ml @ 0 mls/hr Q0M IV ; Start 01/20/19 at 09:39; Status UNV Miscellaneous Information (* Miscellaneous Pharmacy Order) 1 ea ONCE ONCE XX ; Start 01/20/19 at 10:00; Stop 01/20/19 at 10:01; Status UNV Dextrose 1,000 ml @ 50 mls/hr Q20H IV Last administered on 01/22/19at 05:10; Admin Dose 50 MLS/HR; Start 01/20/19 at 11:30 Piperacillin Sod/ Tazobactam Sod 100 ml @ 200 mls/hr Q6 IVPB Last administered on 3/30/19at 05:10; Admin Dose 200 MLS/HR; Start 01/21/19 at 12:00 Carvedilol (Coreg) 3.125 mg BID PO ; Start 01/21/19 at 09:00 Hydralazine HCl (Apresoline) 10 mg Q4H PRN IV SBP >170 Last administered on 01/21/19at 15:11; Admin Dose 10 MG; Start 01/21/19 at 14:30 Vancomycin HCl 250 ml @ 125 mls/hr Q24H IVPB ; Start 01/22/19 at 16:00 RAFY HANDLEY DO Jan 22, 2019 07:56
[2019-01-22 08:00] VITALS: BP 176/96; PULSE 83; RESP 17
[2019-01-22] MEDS: COLLAGENASE 5 GM (UD JAR) TOP SCH (09:55)
[2019-01-22] MEDS: FAMOTIDINE 20 MG INJ IV SCH (09:55)
[2019-01-22] MEDS: BALSAM PERU/CASTOR OIL 60 GM TUBE TOP SCH ×2 (10:34→20:27)
--- NOTE | 2019-01-22 11:23 | CONS ---
Assessment/Plan Assessment/Plan Assessment/Plan (Daily) Assessment and recommendations; 1. Patient admitted with severe sepsis with possibly bowel perforation, patient has improved clinically without any surgical intervention. 2. Status post extubation. Markedly improved overall. 3. History of chronic renal insufficiency. 4. 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 Continue current supportive care. Patient scheduled for repeat CT imaging of abdomen pelvis today. Being followed by general surgery team. Consultation Date/Type/Reason Admit Date/Time Jan 16, 2019 at 23:33 Initial Consult Date 01/17/19 Type of Consult Pulmonary Reason for Consultation Patient's condition is stable. Denies any shortness of breath, chest pain, abdominal pain, nausea vomiting. General exam; middle-aged female, awake alert, currently no distress. On room air. Requesting Provider: NINA HOLT Date/Time of Note DATE: 01/22/19 TIME: 11:20 Exam/Review of Systems Exam Vitals Vital Signs Date Temp Pulse Resp B/P (MAP) Pulse Ox O2 O2 Flow FiO2 Time Delivery Rate 01/22/19 18 10:18 01/22/19 98.1 83 176/96 99 08:00 (122) 01/21/19 Room Air 12:30 01/21/19 2.0 08:00 01/20/19 30 11:10 Intake and Output 01/21/19 01/21/19 01/22/19 1515:00 23:00 07:00 IntakeIntake Total 0 ml 750 ml 900 ml OutputOutput Total 340 ml 400 ml 900 ml BalanceBalance -340 ml 350 ml 0 ml Exam H EENT exam; supple neck, no JVD. No lymphadenopathy. Midline trachea. No thyromegaly. Chest exam; clear to auscultation. S1-S2 audible, no murmurs. Regular rhythm. Abdomen exam; soft, nontender. No organomegaly. Bowel sounds audible. Extremity exam; peripheral edema clubbing. [employer] exam; no focal deficit. Results Result Diagram: 01/22/19 0445 01/22/195 Results 24hrs Laboratory Tests Test 01/21/19 13:15 01/21/19 13:20 01/21/19 17:42 01/21/19 21:15 Bedside Glucose 91 92 112 Vancomycin Level 13.9 Trough Test 01/22/19 00:30 01/22/19 04:45 01/22/19 05:10 Bedside Glucose 97 90 White Blood Count 11.6 H Red Blood Count 3.15 L Hemoglobin 9.1 L Hematocrit 28.3 L Mean Corpuscular 89.8 Volume Mean Corpuscular 28.9 L Hemoglobin Mean Corpuscular 32.2 Hemoglobin Concent Red Cell 15.5 H Distribution Width Platelet Count 166 # Mean Platelet Volume 10.3 Immature 3.300 H Granulocytes % Neutrophils % 76.7 Lymphocytes % 11.7 L Monocytes % 5.4 Eosinophils % 2.5 Basophils % 0.4 Nucleated Red Blood 0.0 Cells % Immature 0.380 H Granulocytes # Neutrophils # 8.9 H Lymphocytes # 1.4 Monocytes # 0.6 Eosinophils # 0.3 Basophils # 0.1 Nucleated Red Blood 0.0 Cells # Sodium Level 141 Potassium Level 3.2 L Chloride Level 116 H Carbon Dioxide Level 17 L Anion Gap 8 Blood Urea Nitrogen 25 H Creatinine 1.15 H Est Glomerular 48 L Filtrat Rate mL/min Glucose Level 91 Calcium Level 8.2 L Phosphorus Level 3.2 Magnesium Level 2.1 Medications Medication Current Medications Vancomycin HCl (Vanco Iv Per Pharmacy) VANCOMYCIN PER PHARMACY PER PROTOCOL XX ; Start 01/16/19 at 23:30 Albuterol (Ventolin Hfa) 4 puff Q2H RESP THERAPY PRN INH SHORTNESS OF BREATH; Start 01/17/19 at 00:00 Ipratropium [place] (Atrovent Hfa) 4 puff Q2H RESP THERAPY PRN INH SHORTNESS OF BREATH; Start 01/17/19 at 00:00 Acetaminophen (Tylenol Liquid) 650 mg Q6H PRN PO PAIN LEVEL 1-3 OR FEVER; Start 01/17/19 at 00:00 Insulin Aspart (Novolog Insulin Pen) NOVOLOG *MILD* ALGORI... Q4 SC Last administered on 01/18/19at 12:32; Admin Dose 1 UNIT; Start 01/17/19 at 13:00 Miscellaneous Information 1 ea NOTE XX ; Start 01/17/19 at 11:00 Glucose (Glutose) 15 gm Q15M PRN PO DECREASED GLUCOSE; Start 01/17/19 at 11:00 Glucose (Glutose) 22.5 gm Q15M PRN PO DECREASED GLUCOSE; Start 01/17/19 at 11:00 Dextrose (D50w Syringe) 25 ml Q15M PRN IV DECREASED GLUCOSE; Start 01/17/19 at 11:00 Dextrose (D50w Syringe) 50 ml Q15M PRN IV DECREASED GLUCOSE; Start 01/17/19 at 11:00 Glucagon (Glucagen) 1 mg Q15M PRN IM DECREASED GLUCOSE; Start 01/17/19 at 11:00 Glucose (Glutose) 15 gm Q15M PRN BUCCAL DECREASED GLUCOSE; Start 01/17/19 at 11:00 Famotidine (Pepcid Iv) 20 mg DAILY IV Last administered on 01/22/19at 09:55; Admin Dose 20 MG; Start 01/18/19 at 09:00 Collagenase (Santyl) 1 applic DAILY TOP Last administered on 01/22/19at 09:55; Admin Dose 1 APPLIC; Start 01/17/19 at 17:00 Morphine Sulfate (morphine) 1 mg Q3H PRN IV SEVERE PAIN LEVEL 7-10; Start 01/18/19 at 19:00 Diagnostic Test (Pha) (Accu-Chek) 1 ea Q4 XX ; Start 01/20/19 at 13:00; Status UNV Total Parenteral Nutrition 1,000 ml @ 0 mls/hr Q0M IV ; Start 01/20/19 at 09:39; Status UNV Miscellaneous Information (* Miscellaneous Pharmacy Order) 1 ea ONCE ONCE XX ; Start 01/20/19 at 10:00; Stop 01/20/19 at 10:01; Status UNV Dextrose 1,000 ml @ 50 mls/hr Q20H IV Last administered on 01/22/19at 05:10; Admin Dose 50 MLS/HR; Start 01/20/19 at 11:30 Piperacillin Sod/ Tazobactam Sod 100 ml @ 200 mls/hr Q6 IVPB Last administered on 01/22/19at 05:10; Admin Dose 200 MLS/HR; Start 01/21/19 at 12:00 Carvedilol (Coreg) 3.125 mg BID PO ; Start 01/21/19 at 09:00 Hydralazine HCl (Apresoline) 10 mg Q4H PRN IV SBP >170 Last administered on 01/21/19at 15:11; Admin Dose 10 MG; Start 01/21/19 at 14:30 Vancomycin HCl 250 ml @ 125 mls/hr Q24H IVPB ; Start 01/22/19 at 16:00 QARNI,CARMELLA Jan 22, 2019 11:23
--- NOTE | 2019-01-22 12:29 | PN ---
Date/Time of Note Date/Time of Note DATE: 01/22/19 TIME: 12:27 Assessment/Plan VTE Prophylaxis Risk score (from Ns)>0 risk: 7 SCD applied (from [facility] [place]): Yes Pharmacological prophylaxis: NA/contraindicated Pharm contraindication: other Assessment/Plan Hospital Course 1. Septic shock: Secondary to pneumoperitoneum, UTI, infected wound versus etiology-resolving Culture growing E. 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 and IV contrast to assess for perforation, patient removed NG tube yesterday and contrast was unable to be given but will be given orally if passes swallow eval Patient is currently refusing repeat CT abdomen Urology consultation appreciated 2. Acute respiratory failure secondary to above Patient extubated 3. Hypokalemia Replete 4. Macrocytic anemia secondary to elevated reticulocyte count Status post 4 units of packed red blood cells 5. Severe leukocytosis-improved 6. Thrombocytosis-resolved Monitor 7. Acute kidney injury secondary to severe septic shock-improving Continue IV fluids Nephrology consultation appreciated 8. Non-STEMI likely type II secondary to severe sepsis Cardiac consultation appreciated 9. Coagulopathy secondary to DIC 10. Hypernatremia D5W 7. Debility secondary history of back surgery and comorbidities Patient has multiple skin wounds, continue wound care Patient may require nursing placement upon DC Prophylaxis: SCDs, Protonix Result Diagram: 01/22/19 0445 01/22/19 0445 Results 24hrs Laboratory Tests Test 01/21/19 13:15 01/21/19 13:20 01/21/19 17:42 01/21/19 21:15 Bedside Glucose 91 92 112 Vancomycin Level 13.9 Trough Test 01/22/19 00:30 01/22/19 04:45 01/22/19 05:10 Bedside Glucose 97 90 White Blood Count 11.6 H Red Blood Count 3.15 L Hemoglobin 9.1 L Hematocrit 28.3 L Mean Corpuscular 89.8 Volume Mean Corpuscular 28.9 L Hemoglobin Mean Corpuscular 32.2 Hemoglobin Concent Red Cell 15.5 H Distribution Width Platelet Count 166 # Mean Platelet Volume 10.3 Immature 3.300 H Granulocytes % Neutrophils % 76.7 Lymphocytes % 11.7 L Monocytes % 5.4 Eosinophils % 2.5 Basophils % 0.4 Nucleated Red Blood 0.0 Cells % Immature 0.380 H Granulocytes # Neutrophils # 8.9 H Lymphocytes # 1.4 Monocytes # 0.6 Eosinophils # 0.3 Basophils # 0.1 Nucleated Red Blood 0.0 Cells # Sodium Level 141 Potassium Level 3.2 L Chloride Level 116 H Carbon Dioxide Level 17 L Anion Gap 8 Blood Urea Nitrogen 25 H Creatinine 1.15 H Est Glomerular 48 L Filtrat Rate mL/min Glucose Level 91 Calcium Level 8.2 L Phosphorus Level 3.2 Magnesium Level 2.1 Subjective 24 Hr Interval Summary Constitutional: disoriented Exam/Review of Systems Exam Vitals Vital Signs Date Temp Pulse Resp B/P (MAP) Pulse Ox O2 O2 Flow FiO2 Time Delivery Rate 01/22/19 18 10:18 01/22/19 98.1 83 176/96 99 08:00 (122) 01/21/19 Room Air 12:30 01/21/19 2.0 08:00 01/20/19 30 11:10 Intake and Output 01/21/19 01/21/19 01/22/19 1414:59 22:59 06:59 IntakeIntake Total 0 ml 750 ml 900 ml OutputOutput Total 380 ml 400 ml 900 ml BalanceBalance -380 ml 350 ml 0 ml Psych: confusion Respiratory: clear to auscultation Cardiovascular: regular rate and rhythm Gastrointestinal: soft; No distended Musculoskeletal: nl extremities to inspection Results Results 24hrs Laboratory Tests Test 01/21/19 13:15 01/21/19 13:20 01/21/19 17:42 01/21/19 21:15 Bedside Glucose 91 92 112 Vancomycin Level 13.9 Trough Test 01/22/19 00:30 01/22/19 04:45 01/22/19 05:10 Bedside Glucose 97 90 White Blood Count 11.6 H Red Blood Count 3.15 L Hemoglobin 9.1 L Hematocrit 28.3 L Mean Corpuscular 89.8 Volume Mean Corpuscular 28.9 L Hemoglobin Mean Corpuscular 32.2 Hemoglobin Concent Red Cell 15.5 H Distribution Width Platelet Count 166 # Mean Platelet Volume 10.3 Immature 3.300 H Granulocytes % Neutrophils % 76.7 Lymphocytes % 11.7 L Monocytes % 5.4 Eosinophils % 2.5 Basophils % 0.4 Nucleated Red Blood 0.0 Cells % Immature 0.380 H Granulocytes # Neutrophils # 8.9 H Lymphocytes # 1.4 Monocytes # 0.6 Eosinophils # 0.3 Basophils # 0.1 Nucleated Red Blood 0.0 Cells # Sodium Level 141 Potassium Level 3.2 L Chloride Level 116 H Carbon Dioxide Level 17 L Anion Gap 8 Blood Urea Nitrogen 25 H Creatinine 1.15 H Est Glomerular 48 L Filtrat Rate mL/min Glucose Level 91 Calcium Level 8.2 L Phosphorus Level 3.2 Magnesium Level 2.1 Medications Medication Current Medications Vancomycin HCl (Vanco Iv Per Pharmacy) VANCOMYCIN PER PHARMACY PER PROTOCOL XX ; Start 01/16/19 at 23:30 Albuterol (Ventolin Hfa) 4 puff Q2H RESP THERAPY PRN INH SHORTNESS OF BREATH; Start 01/17/19 at 00:00 Ipratropium [place] (Atrovent Hfa) 4 puff Q2H RESP THERAPY PRN INH SHORTNESS OF BREATH; Start 01/17/19 at 00:00 Acetaminophen (Tylenol Liquid) 650 mg Q6H PRN PO PAIN LEVEL 1-3 OR FEVER; Start 01/17/19 at 00:00 Insulin Aspart (Novolog Insulin Pen) NOVOLOG *MILD* ALGORI... Q4 SC Last administered on 01/18/19at 12:32; Admin Dose 1 UNIT; Start 01/17/19 at 13:00 Miscellaneous Information 1 ea NOTE XX ; Start 01/17/19 at 11:00 Glucose (Glutose) 15 gm Q15M PRN PO DECREASED GLUCOSE; Start 01/17/19 at 11:00 Glucose (Glutose) 22.5 gm Q15M PRN PO DECREASED GLUCOSE; Start 01/17/19 at 11:00 Dextrose (D50w Syringe) 25 ml Q15M PRN IV DECREASED GLUCOSE; Start 01/17/19 at 11:00 Dextrose (D50w Syringe) 50 ml Q15M PRN IV DECREASED GLUCOSE; Start 01/17/19 at 11:00 Glucagon (Glucagen) 1 mg Q15M PRN IM DECREASED GLUCOSE; Start 01/17/19 at 11:00 Glucose (Glutose) 15 gm Q15M PRN BUCCAL DECREASED GLUCOSE; Start 01/17/19 at 11:00 Famotidine (Pepcid Iv) 20 mg DAILY IV Last administered on 01/22/19at 09:55; Admin Dose 20 MG; Start 01/18/19 at 09:00 Collagenase (Santyl) 1 applic DAILY TOP Last administered on 01/22/19at 09:55; Admin Dose 1 APPLIC; Start 01/17/19 at 17:00 Morphine Sulfate (morphine) 1 mg Q3H PRN IV SEVERE PAIN LEVEL 7-10; Start 01/18/19 at 19:00 Diagnostic Test (Pha) (Accu-Chek) 1 ea Q4 XX ; Start 01/20/19 at 13:00; Status UNV Total Parenteral Nutrition 1,000 ml @ 0 mls/hr Q0M IV ; Start 01/20/19 at 09:39; Status UNV Miscellaneous Information (* Miscellaneous Pharmacy Order) 1 ea ONCE ONCE XX ; Start 01/20/19 at 10:00; Stop 01/20/19 at 10:01; Status UNV Dextrose 1,000 ml @ 50 mls/hr Q20H IV Last administered on 01/22/19at 05:10; Admin Dose 50 MLS/HR; Start 01/20/19 at 11:30 Piperacillin Sod/ Tazobactam Sod 100 ml @ 200 mls/hr Q6 IVPB Last administered on 01/22/19at 11:47; Admin Dose 200 MLS/HR; Start 01/21/19 at 12:00 Carvedilol (Coreg) 3.125 mg BID PO ; Start 01/21/19 at 09:00 Hydralazine HCl (Apresoline) 10 mg Q4H PRN IV SBP >170 Last administered on 01/21/19at 15:11; Admin Dose 10 MG; Start 01/21/19 at 14:30 Vancomycin HCl 250 ml @ 125 mls/hr Q24H IVPB ; Start 01/22/19 at 16:00 ALLISON WOLFF Jan 22, 2019 12:29
--- NOTE | 2019-01-22 12:29 | CONS ---
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 She keeps asking for food but she is n.p.o. Objective Vitals Vital Signs Date Temp Pulse Resp B/P (MAP) Pulse Ox O2 O2 Flow FiO2 Time Delivery Rate 01/22/19 18 10:18 01/22/19 98.1 83 176/96 99 08:00 (122) 01/21/19 Room Air 12:30 01/21/19 2.0 08:00 01/20/19 30 11:10 Intake and Output 01/21/19 01/21/19 01/22/19 1515:00 23:00 07:00 IntakeIntake Total 0 ml 750 ml 900 ml OutputOutput Total 340 ml 400 ml 900 ml BalanceBalance -340 ml 350 ml 0 ml Exam May catheter is draining clear urine. Results/Medications Result Diagram: 01/22/19 0445 01/22/19 0445 Results 24 hrs Laboratory Tests Test 01/21/19 13:15 01/21/19 13:20 01/21/19 17:42 01/21/19 21:15 Bedside Glucose 91 92 112 Vancomycin Level 13.9 Trough Test 01/22/19 00:30 01/22/19 04:45 01/22/19 05:10 Bedside Glucose 97 90 White Blood Count 11.6 H Red Blood Count 3.15 L Hemoglobin 9.1 L Hematocrit 28.3 L Mean Corpuscular 89.8 Volume Mean Corpuscular 28.9 L Hemoglobin Mean Corpuscular 32.2 Hemoglobin Concent Red Cell 15.5 H Distribution Width Platelet Count 166 # Mean Platelet Volume 10.3 Immature 3.300 H Granulocytes % Neutrophils % 76.7 Lymphocytes % 11.7 L Monocytes % 5.4 Eosinophils % 2.5 Basophils % 0.4 Nucleated Red Blood 0.0 Cells % Immature 0.380 H Granulocytes # Neutrophils # 8.9 H Lymphocytes # 1.4 Monocytes # 0.6 Eosinophils # 0.3 Basophils # 0.1 Nucleated Red Blood 0.0 Cells # Sodium Level 141 Potassium Level 3.2 L Chloride Level 116 H Carbon Dioxide Level 17 L Anion Gap 8 Blood Urea Nitrogen 25 H Creatinine 1.15 H Est Glomerular 48 L Filtrat Rate mL/min Glucose Level 91 Calcium Level 8.2 L Phosphorus Level 3.2 Magnesium Level 2.1 Home Meds Reported Medications Gabapentin* (Gabapentin*) 100 Mg Capsule, 100 MG PO TID, #90 CAP 01/20/18 Medications Current Medications Vancomycin HCl (Vanco Iv Per Pharmacy) VANCOMYCIN PER PHARMACY PER PROTOCOL XX ; Start 01/16/19 at 23:30 Albuterol (Ventolin Hfa) 4 puff Q2H RESP THERAPY PRN INH SHORTNESS OF BREATH; Start 01/17/19 at 00:00 Ipratropium [place] (Atrovent Hfa) 4 puff Q2H RESP THERAPY PRN INH SHORTNESS OF BREATH; Start 01/17/19 at 00:00 Acetaminophen (Tylenol Liquid) 650 mg Q6H PRN PO PAIN LEVEL 1-3 OR FEVER; Start 01/17/19 at 00:00 Insulin Aspart (Novolog Insulin Pen) NOVOLOG *MILD* ALGORI... Q4 SC Last administered on 01/18/19at 12:32; Admin Dose 1 UNIT; Start 01/17/19 at 13:00 Miscellaneous Information 1 ea NOTE XX ; Start 01/17/19 at 11:00 Glucose (Glutose) 15 gm Q15M PRN PO DECREASED GLUCOSE; Start 01/17/19 at 11:00 Glucose (Glutose) 22.5 gm Q15M PRN PO DECREASED GLUCOSE; Start 01/17/19 at 11:00 Dextrose (D50w Syringe) 25 ml Q15M PRN IV DECREASED GLUCOSE; Start 01/17/19 at 11:00 Dextrose (D50w Syringe) 50 ml Q15M PRN IV DECREASED GLUCOSE; Start 01/17/19 at 11:00 Glucagon (Glucagen) 1 mg Q15M PRN IM DECREASED GLUCOSE; Start 01/17/19 at 11:00 Glucose (Glutose) 15 gm Q15M PRN BUCCAL DECREASED GLUCOSE; Start 01/17/19 at 11:00 Famotidine (Pepcid Iv) 20 mg DAILY IV Last administered on 01/22/19at 09:55; Admin Dose 20 MG; Start 01/18/19 at 09:00 Collagenase (Santyl) 1 applic DAILY TOP Last administered on 01/22/19at 09:55; Admin Dose 1 APPLIC; Start 01/17/19 at 17:00 Morphine Sulfate (morphine) 1 mg Q3H PRN IV SEVERE PAIN LEVEL 7-10; Start 01/18/19 at 19:00 Diagnostic Test (Pha) (Accu-Chek) 1 ea Q4 XX ; Start 01/20/19 at 13:00; Status UNV Total Parenteral Nutrition 1,000 ml @ 0 mls/hr Q0M IV ; Start 01/20/19 at 09: 39; Status UNV Miscellaneous Information (* Miscellaneous Pharmacy Order) 1 ea ONCE ONCE XX ; Start 01/20/19 at 10:00; Stop 01/20/19 at 10:01; Status UNV Dextrose 1,000 ml @ 50 mls/hr Q20H IV Last administered on 01/22/19at 05:10; Admin Dose 50 MLS/HR; Start 01/20/19 at 11:30 Piperacillin Sod/ Tazobactam Sod 100 ml @ 200 mls/hr Q6 IVPB Last administered on 01/22/19at 11:47; Admin Dose 200 MLS/HR; Start 01/21/19 at 12:00 Carvedilol (Coreg) 3.125 mg BID PO ; Start 01/21/19 at 09:00 Hydralazine HCl (Apresoline) 10 mg Q4H PRN IV SBP >170 Last administered on 01/21/19at 15:11; Admin Dose 10 MG; Start 01/21/19 at 14:30 Vancomycin HCl 250 ml @ 125 mls/hr Q24H IVPB ; Start 01/22/19 at 16:00 Assessment/Plan Hospital Course (Demo Recall) 58-year-old female with a past medical history of ambulatory dysfunction was found confused and weak by her sister at home. Patient was brought in via EMS and was noted to be confused but she was answering questions appropriately according to the ER doctor. Patient in the emergency department was also noted to be hypothermic and given her low GCS score patient was emergently intubated. She was found to have severe anemia with a hemoglobin of 2 along with lactic acidosis and renal failure. The patient was transfused and had a CT scan of the abdomen and pelvis that showed: 1. Pneumoperitoneum compatible with a perforated hollow viscus, the etiology of which is uncertain, severe constipation pattern is present. 2. Abnormal urinary bladder with a May catheter and gas both within the bladder and the bladder wall unable to exclude emphysematous cystitis and possibly a fistula with the adjacent colon. An abscess anterior to the urinary bladder is the possibility on this exam limited by the lack of intravenous contrast media. 3. Gallbladder distension with common bile duct dilatation but no evidence of calcified gallstones, findings of uncertain significance. 4. Gas is present within the right renal pelvis and right ureter for urinary tract infection with mild right hydroureter. 5. Mild splenomegaly. 6. Adrenal gland hyperplasia greater on the left. 7. Anasarca pattern. 8. Chronic T11 compression fracture deformity. The may catheter is draining clear urine. The urine culture showed: URINE CULTURE Final Organism 1 ESCHERICHIA COLI COLONY COUNT >100,000 CFU/ml E COLI M.I.C. RX --------- --- AMIKACIN <=2 S AMPICILLIN >=32 R CEFAZOLIN <=4 S CEFOTAXIME S CIPROFLOXACIN >=4 R GENTAMICIN >=16 R LEVOFLOXACIN >=8 R NITROFURANTOIN 32 S TOBRAMYCIN 8 I TRIMETHOPRIM/SULFAMETHOXAZOLE <=20 S PIPERACILLIN/TAZOBACTAM <=4 S Impression: urinary tract infection and possible colovesical fistula. Recommendation: For now keep the May catheter and continue the Zosyn and vancomycin. Patient was going to have a CT scan of abdomen and pelvis with oral contrast but she pulled out the NG tube 3 times. Urologically keep the May catheter in for now and continue her antibiotic TINO RIVERA MD Jan 22, 2019 12:29
[2019-01-22 14:06] VITALS: BP 179/97; PULSE 88; RESP 17
[2019-01-22 14:30] VITALS: BP 150/95; PULSE 79; RESP 18
[2019-01-22] MEDS: morphine 2 MG INJ IV PRN ×2 (16:07→20:41)
[2019-01-22] MEDS: VANCOMYCIN 1 GM 250 ML IVPB SCH (16:08)
--- NOTE | 2019-01-22 16:08 | PN ---
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 ABX per ID No GI intervention at this time Will sign off, please call with any questions. Patient seen in collaboration with Dr. Cosme Subjective: Course reviewed with nursing staff Patient interviewed and examined All labs, imaging and other results reviewed Patient is awake and alert with family at bedside. Complaining of pain in her legs and requesting pain medicine. Overall denies abdominal pain. Refused repeat CT scan yesterday, NG tube came out and unable to give contrast. She may be agreeable to repeat CT scan if pain is under control. PHYSICAL EXAMINATION: GENERAL: Ill appearing, awake and alert SKIN: decubitus wounds EARS/NOSE AND THROAT: Ears normal, nose normal, Intubated NECK: Supple, no masses. CHEST: Inspection within normal limits. CARDIOVASCULAR: Heart: Regular rate and rhythm RESPIRATORY: Coarse GASTROINTESTINAL AND LIVER: Abdomen: Soft, non-distended, no hernias, hypoactive/absent bowel sounds. Rectal: Deferred. : f/c in place, query fecal content EXTREMITIES: No cyanosis, clubbing or edema. Result Diagram: 01/22/195 01/22/195 Results 24hrs Laboratory Tests Test 01/21/19 17:42 01/21/19 21:15 01/22/19 00:30 01/22/19 04:45 Bedside Glucose 92 112 97 White Blood Count 11.6 H Red Blood Count 3.15 L Hemoglobin 9.1 L Hematocrit 28.3 L Mean Corpuscular 89.8 Volume Mean Corpuscular 28.9 L Hemoglobin Mean Corpuscular 32.2 Hemoglobin Concent Red Cell 15.5 H Distribution Width Platelet Count 166 # Mean Platelet Volume 10.3 Immature 3.300 H Granulocytes % Neutrophils % 76.7 Lymphocytes % 11.7 L Monocytes % 5.4 Eosinophils % 2.5 Basophils % 0.4 Nucleated Red Blood 0.0 Cells % Immature 0.380 H Granulocytes # Neutrophils # 8.9 H Lymphocytes # 1.4 Monocytes # 0.6 Eosinophils # 0.3 Basophils # 0.1 Nucleated Red Blood 0.0 Cells # Sodium Level 141 Potassium Level 3.2 L Chloride Level 116 H Carbon Dioxide Level 17 L Anion Gap 8 Blood Urea Nitrogen 25 H Creatinine 1.15 H Est Glomerular 48 L Filtrat Rate mL/min Glucose Level 91 Calcium Level 8.2 L Phosphorus Level 3.2 Magnesium Level 2.1 Test 01/22/19 05:10 01/22/19 12:28 01/22/19 13:01 Bedside Glucose 90 72 93 CC: MABLE COSME ; Exam/Review of Systems Exam Vitals Vital Signs Date Temp Pulse Resp B/P (MAP) Pulse Ox O2 O2 Flow FiO2 Time Delivery Rate 01/22/19 18 10:18 01/22/19 98.1 83 176/96 99 08:00 (122) 01/21/19 Room Air 12:30 01/21/19 2.0 08:00 01/20/19 30 11:10 Intake and Output 01/21/19 01/21/19 01/22/19 1515:00 23:00 07:00 IntakeIntake Total 0 ml 750 ml 900 ml OutputOutput Total 340 ml 400 ml 900 ml BalanceBalance -340 ml 350 ml 0 ml Results Results 24hrs Laboratory Tests Test 01/21/19 17:42 01/21/19 21:15 01/22/19 00:30 01/22/19 04:45 Bedside Glucose 92 112 97 White Blood Count 11.6 H Red Blood Count 3.15 L Hemoglobin 9.1 L Hematocrit 28.3 L Mean Corpuscular 89.8 Volume Mean Corpuscular 28.9 L Hemoglobin Mean Corpuscular 32.2 Hemoglobin Concent Red Cell 15.5 H Distribution Width Platelet Count 166 # Mean Platelet Volume 10.3 Immature 3.300 H Granulocytes % Neutrophils % 76.7 Lymphocytes % 11.7 L Monocytes % 5.4 Eosinophils % 2.5 Basophils % 0.4 Nucleated Red Blood 0.0 Cells % Immature 0.380 H Granulocytes # Neutrophils # 8.9 H Lymphocytes # 1.4 Monocytes # 0.6 Eosinophils # 0.3 Basophils # 0.1 Nucleated Red Blood 0.0 Cells # Sodium Level 141 Potassium Level 3.2 L Chloride Level 116 H Carbon Dioxide Level 17 L Anion Gap 8 Blood Urea Nitrogen 25 H Creatinine 1.15 H Est Glomerular 48 L Filtrat Rate mL/min Glucose Level 91 Calcium Level 8.2 L Phosphorus Level 3.2 Magnesium Level 2.1 Test 01/22/19 05:10 01/22/19 12:28 01/22/19 13:01 Bedside Glucose 90 72 93 Medications Medication Current Medications Vancomycin HCl (Vanco Iv Per Pharmacy) VANCOMYCIN PER PHARMACY PER PROTOCOL XX ; Start 01/16/19 at 23:30 Albuterol (Ventolin Hfa) 4 puff Q2H RESP THERAPY PRN INH SHORTNESS OF BREATH; Start 01/17/19 at 00:00 Ipratropium [place] (Atrovent Hfa) 4 puff Q2H RESP THERAPY PRN INH SHORTNESS OF BREATH; Start 01/17/19 at 00:00 Acetaminophen (Tylenol Liquid) 650 mg Q6H PRN PO PAIN LEVEL 1-3 OR FEVER; Start 01/17/19 at 00:00 Insulin Aspart (Novolog Insulin Pen) NOVOLOG *MILD* ALGORI... Q4 SC Last administered on 01/18/19at 12:32; Admin Dose 1 UNIT; Start 01/17/19 at 13:00 Miscellaneous Information 1 ea NOTE XX ; Start 01/17/19 at 11:00 Glucose (Glutose) 15 gm Q15M PRN PO DECREASED GLUCOSE; Start 01/17/19 at 11:00 Glucose (Glutose) 22.5 gm Q15M PRN PO DECREASED GLUCOSE; Start 01/17/19 at 11:00 Dextrose (D50w Syringe) 25 ml Q15M PRN IV DECREASED GLUCOSE; Start 01/17/19 at 11:00 Dextrose (D50w Syringe) 50 ml Q15M PRN IV DECREASED GLUCOSE; Start 01/17/19 at 11:00 Glucagon (Glucagen) 1 mg Q15M PRN IM DECREASED GLUCOSE; Start 01/17/19 at 11:00 Glucose (Glutose) 15 gm Q15M PRN BUCCAL DECREASED GLUCOSE; Start 01/17/19 at 11:00 Famotidine (Pepcid Iv) 20 mg DAILY IV Last administered on 01/22/19at 09:55; Admin Dose 20 MG; Start 01/18/19 at 09:00 Collagenase (Santyl) 1 applic DAILY TOP Last administered on 01/22/19at 09:55; Admin Dose 1 APPLIC; Start 01/17/19 at 17:00 Morphine Sulfate (morphine) 1 mg Q3H PRN IV SEVERE PAIN LEVEL 7-10; Start 01/18/19 at 19:00 Diagnostic Test (Pha) (Accu-Chek) 1 ea Q4 XX ; Start 01/20/19 at 13:00; Status UNV Total Parenteral Nutrition 1,000 ml @ 0 mls/hr Q0M IV ; Start 01/20/19 at 09:39; Status UNV Miscellaneous Information (* Miscellaneous Pharmacy Order) 1 ea ONCE ONCE XX ; Start 01/20/19 at 10:00; Stop 01/20/19 at 10:01; Status UNV Dextrose 1,000 ml @ 50 mls/hr Q20H IV Last administered on 01/22/19at 05:10; Admin Dose 50 MLS/HR; Start 01/20/19 at 11:30 Piperacillin Sod/ Tazobactam Sod 100 ml @ 200 mls/hr Q6 IVPB Last administered on 01/22/19at 11:47; Admin Dose 200 MLS/HR; Start 01/21/19 at 12:00 Carvedilol (Coreg) 3.125 mg BID PO ; Start 01/21/19 at 09:00 Hydralazine HCl (Apresoline) 10 mg Q4H PRN IV SBP >170 Last administered on 01/21/19at 15:11; Admin Dose 10 MG; Start 01/21/19 at 14:30 Vancomycin HCl 250 ml @ 125 mls/hr Q24H IVPB ; Start 01/22/19 at 16:00 PARRIS LAWRENCE NP Jan 22, 2019 16:08
[2019-01-22 17:03] VITALS: BP 166/87; PULSE 83; RESP 18
[2019-01-22 20:00] VITALS: BP 184/91; PULSE 73; RESP 19
[2019-01-22] MEDS: hydrALAzine 20 MG INJ IV PRN (20:36)
[2019-01-23] MEDS ORDERED: ZOLPIDEM 5 MG TAB PO ONE
[2019-01-23] MEDS: PIPER-TAZO 3.375 GM IV (PMX) 100 ML IVPB SCH ×4 (00:28→18:00)
[2019-01-23] MEDS: ACCU-CHEK XX SCH ×5 (01:00→15:40)
[2019-01-23] MEDS ORDERED: LORAZEPAM 0.5 MG TAB PO ONE (01:00)
[2019-01-23] MEDS: hydrALAzine 20 MG INJ IV PRN (01:27)
[2019-01-23] MEDS ORDERED: LORAZEPAM 2 MG INJ IV ONE (01:30)
[2019-01-23 02:00] VITALS: BP 177/89; PULSE 94; RESP 17
[2019-01-23] MEDS: INSULIN ASPART [NOVOLOG] 3 ML PEN SC SCH ×4 (05:18→17:54)
[2019-01-23 05:19] VITALS: BP 164/81; PULSE 87
[2019-01-23] MEDS: DEXTROSE 5% 1,000 ML IV SCH (05:55)
[2019-01-23 08:21] VITALS: BP 160/88; PULSE 84; RESP 16
--- NOTE | 2019-01-23 09:10 | PN ---
Date/Time of Note Date/Time of Note DATE: 01/23/19 TIME: 09:09 Assessment/Plan VTE Prophylaxis Risk score (from Ns)>0 risk: 7 SCD applied (from Ns): Yes Pharmacological prophylaxis: other Lines/Catheters IV C[facility]from [facility] Central Line Central line still needed: Yes Urinary Cath still in place: Yes Reason Cath still needed: urinary retention Assessment/Plan Hospital Course renal follow up SUBJECTIVE: The patient is clinically improved. Urinary output has been adequate. No other events noted. d/w Dr Kirk OBJECTIVE: HEENT: Head is normocephalic. NECK: Supple. HEART: Regular rate. LUNGS: Show diminished breath sounds at the base. ABDOMEN: Soft, nontender to palpation without rebound or guarding. EXTREMITIES: Negative for clubbing, cyanosis. Trace edema. DERMATOLOGIC: No rashes. MUSCULOSKELETAL: No joint effusion. NEUROLOGIC: No change in exam. IMAGING STUDIES: The patient's chest x-ray and imaging studies have been reviewed. MEDICATIONS: The patient's medications have been reviewed. Cultures have been reviewed. ASSESSMENT AND PLAN: 1. Nonoliguric acute kidney injury with unknown baseline creatinine. Etiology of acute kidney injury is secondary to acute tubular necrosis due to volume depletion, shock, NSAID use. The patient's renal function has been improving. Continue current treatment plans, supportive care, renally dose all medicines. 2. Hypernatremia. resolved 3. Hypokalemia. Replete aggressively 4. Metabolic acidosis. Etiology is multifactorial secondary to acute kidney injury, hypercatabolic state. 5. Sepsis, status post shock secondary to pneumoperitoneum, urinary tract infection. Continue broad spectrum antibiotics, IV fluids. 6. Respiratory failure. The patient is status post extubation. Continue to monitor. 7. Perforated viscus. The patient was seen by general surgery, no plan for surgical intervention at this time. 8. Leukocytosis from sepsis, anemia, improving. 9. Elevated troponin likely from non-ST elevation myocardial infarction type 2. Continue to monitor. Follow up with cardiology. 10. Acute encephalopathy. Etiology is toxic metabolic. 11. Decubitus wound. Multiple. Continue wound care. Result Diagram: 01/23/19 0507 01/23/19 0507 Results 24hrs Laboratory Tests Test 01/22/19 12:28 01/22/19 13:01 3/30/19 17:41 01/23/19 00:24 Bedside Glucose 72 93 101 86 Test 01/23/19 05:05 01/23/19 05:07 Bedside Glucose 79 White Blood Count 11.8 H Red Blood Count 3.40 L Hemoglobin 9.8 L Hematocrit 29.8 L Mean Corpuscular 87.6 Volume Mean Corpuscular 28.8 L Hemoglobin Mean Corpuscular 32.9 Hemoglobin Concent Red Cell 15.5 H Distribution Width Platelet Count 207 # Mean Platelet Volume 10.1 Immature 3.100 H Granulocytes % Neutrophils % 76.3 Lymphocytes % 12.1 L Monocytes % 6.5 Eosinophils % 1.6 Basophils % 0.4 Nucleated Red Blood 0.0 Cells % Immature 0.370 H Granulocytes # Neutrophils # 9.0 H Lymphocytes # 1.4 Monocytes # 0.8 Eosinophils # 0.2 Basophils # 0.1 Nucleated Red Blood 0.0 Cells # Sodium Level 140 Potassium Level 2.5 *L Chloride Level 114 H Carbon Dioxide Level 16 L Anion Gap 10 Blood Urea Nitrogen 19 Creatinine 1.02 H Est Glomerular 56 L Filtrat Rate mL/min Glucose Level 76 Calcium Level 8.2 L Total Bilirubin 0.4 Direct Bilirubin 0.00 Indirect Bilirubin 0.4 Aspartate Amino 21 Transf (AST/SGOT) Alanine 39 Aminotransferase (AL T/SGPT) Alkaline Phosphatase 159 H Total Protein 5.5 L Albumin 2.4 L Globulin 3.10 Albumin/Globulin 0.77 Ratio Exam/Review of Systems Exam Vitals Vital Signs Date Temp Pulse Resp B/P (MAP) Pulse Ox O2 O2 Flow FiO2 Time Delivery Rate 01/23/19 98.7 84 16 160/88 100 08:21 (112) 01/22/19 Room Air 17:03 01/21/19 2.0 08:00 01/20/19 30 11:10 Intake and Output 01/22/19 01/22/19 01/23/19 1515:00 23:00 07:00 IntakeIntake Total 100 ml 350 ml 1200 ml OutputOutput Total 900 ml BalanceBalance 100 ml -550 ml 1200 ml Results Results 24hrs Laboratory Tests Test 01/22/19 12:28 01/22/19 13:01 01/22/19 17:41 01/23/19 00:24 Bedside Glucose 72 93 101 86 Test 01/23/19 05:05 01/23/19 05:07 Bedside Glucose 79 White Blood Count 11.8 H Red Blood Count 3.40 L Hemoglobin 9.8 L Hematocrit 29.8 L Mean Corpuscular 87.6 Volume Mean Corpuscular 28.8 L Hemoglobin Mean Corpuscular 32.9 Hemoglobin Concent Red Cell 15.5 H Distribution Width Platelet Count 207 # Mean Platelet Volume 10.1 Immature 3.100 H Granulocytes % Neutrophils % 76.3 Lymphocytes % 12.1 L Monocytes % 6.5 Eosinophils % 1.6 Basophils % 0.4 Nucleated Red Blood 0.0 Cells % Immature 0.370 H Granulocytes # Neutrophils # 9.0 H Lymphocytes # 1.4 Monocytes # 0.8 Eosinophils # 0.2 Basophils # 0.1 Nucleated Red Blood 0.0 Cells # Sodium Level 140 Potassium Level 2.5 *L Chloride Level 114 H Carbon Dioxide Level 16 L Anion Gap 10 Blood Urea Nitrogen 19 Creatinine 1.02 H Est Glomerular 56 L Filtrat Rate mL/min Glucose Level 76 Calcium Level 8.2 L Total Bilirubin 0.4 Direct Bilirubin 0.00 Indirect Bilirubin 0.4 Aspartate Amino 21 Transf (AST/SGOT) Alanine 39 Aminotransferase (AL T/SGPT) Alkaline Phosphatase 159 H Total Protein 5.5 L Albumin 2.4 L Globulin 3.10 Albumin/Globulin 0.77 Ratio Medications Medication Current Medications Vancomycin HCl (Vanco Iv Per Pharmacy) VANCOMYCIN PER PHARMACY PER PROTOCOL XX ; Start 01/16/19 at 23:30 Albuterol (Ventolin Hfa) 4 puff Q2H RESP THERAPY PRN INH SHORTNESS OF BREATH; Start 01/17/19 at 00:00 Ipratropium [place] (Atrovent Hfa) 4 puff Q2H RESP THERAPY PRN INH SHORTNESS OF BREATH; Start 01/17/19 at 00:00 Acetaminophen (Tylenol Liquid) 650 mg Q6H PRN PO PAIN LEVEL 1-3 OR FEVER; Start 01/17/19 at 00:00 Miscellaneous Information 1 ea NOTE XX ; Start 01/17/19 at 11:00 Glucose (Glutose) 15 gm Q15M PRN PO DECREASED GLUCOSE; Start 01/17/19 at 11:00 Glucose (Glutose) 22.5 gm Q15M PRN PO DECREASED GLUCOSE; Start 01/17/19 at 11:00 Dextrose (D50w Syringe) 25 ml Q15M PRN IV DECREASED GLUCOSE; Start 01/17/19 at 11:00 Dextrose (D50w Syringe) 50 ml Q15M PRN IV DECREASED GLUCOSE; Start 01/17/19 at 11:00 Glucagon (Glucagen) 1 mg Q15M PRN IM DECREASED GLUCOSE; Start 01/17/19 at 11:00 Glucose (Glutose) 15 gm Q15M PRN BUCCAL DECREASED GLUCOSE; Start 01/17/19 at 11:00 Famotidine (Pepcid Iv) 20 mg DAILY IV Last administered on 01/22/19at 09:55; Admin Dose 20 MG; Start 01/18/19 at 09:00 Collagenase (Santyl) 1 applic DAILY TOP Last administered on 01/22/19at 09:55; Admin Dose 1 APPLIC; Start 01/17/19 at 17:00 Morphine Sulfate (morphine) 1 mg Q3H PRN IV SEVERE PAIN LEVEL 7-10 Last administered on 01/22/19at 20:41; Admin Dose 1 MG; Start 01/18/19 at 19:00 Diagnostic Test (Pha) (Accu-Chek) 1 ea Q4 XX ; Start 01/20/19 at 13:00; Status UNV Total Parenteral Nutrition 1,000 ml @ 0 mls/hr Q0M IV ; Start 01/20/19 at 09:39; Status UNV Miscellaneous Information (* Miscellaneous Pharmacy Order) 1 ea ONCE ONCE XX ; Start 01/20/19 at 10:00; Stop 01/20/19 at 10:01; Status UNV Dextrose 1,000 ml @ 50 mls/hr Q20H IV Last administered on 01/23/19at 05:55; Admin Dose 50 MLS/HR; Start 01/20/19 at 11:30 Piperacillin Sod/ Tazobactam Sod 100 ml @ 200 mls/hr Q6 IVPB Last administered on 01/23/19at 05:52; Admin Dose 200 MLS/HR; Start 01/21/19 at 12:00 Carvedilol (Coreg) 3.125 mg BID PO ; Start 01/21/19 at 09:00 Hydralazine HCl (Apresoline) 10 mg Q4H PRN IV SBP >170 Last administered on 01/23/19at 01:27; Admin Dose 10 MG; Start 01/21/19 at 14:30 Vancomycin HCl 250 ml @ 125 mls/hr Q24H IVPB Last administered on 01/22/19at 16:08; Admin Dose 125 MLS/HR; Start 01/22/19 at 16:00 Insulin Aspart (Novolog Insulin Pen) NOVOLOG *MILD* ALGORI... Q6 SC ; Start 01/23/19 at 00:00 RAFY HANDLEY DO Jan 23, 2019 09:10
[2019-01-23] MEDS ORDERED: POTASSIUM CHLORIDE 50 ML IVPB SCH (09:30)
[2019-01-23] MEDS: POTASSIUM CHLORIDE 40 MEQ in DEXTROSE 5% 1,000 ML IV SCH (10:00)
[2019-01-23] MEDS: POTASSIUM CHLORIDE 100 ML IVPB SCH ×4 (10:42→17:55)
[2019-01-23] MEDS: FAMOTIDINE 20 MG INJ IV SCH (10:43)
[2019-01-23] MEDS: COLLAGENASE 5 GM (UD JAR) TOP SCH (10:43)
[2019-01-23] MEDS: BALSAM PERU/CASTOR OIL 60 GM TUBE TOP SCH ×2 (10:44→22:39)
[2019-01-23] MEDS: morphine 2 MG INJ IV PRN (12:54)
[2019-01-23] MEDS: VANCOMYCIN 1 GM 250 ML IVPB SCH (15:39)
--- NOTE | 2019-01-23 18:18 | PN ---
Date/Time of Note Date/Time of Note DATE: 01/23/19 TIME: 18:17 Assessment/Plan VTE Prophylaxis Risk score (from [facility] [place]0 risk: 7 SCD applied (from [facility] [place] Yes Pharmacological prophylaxis: NA/contraindicated Pharm contraindication: surgical contra Assessment/Plan Hospital Course 1. Septic shock: Secondary to pneumoperitoneum, UTI, infected wound versus etiology-resolving Culture growing E. coli, blood culture growing gram-negative rods, wound cultures noted Continue broad-spectrum antibiotics of vancomycin and Zosyn Off pressors ID consultation appreciated CT abdomen does show pneumoperitoneum compatible with a perforated hollow viscus, etiology is uncertain, abnormal urinary bladder with possible em physematous cystitis and possible fistula with, Abscess anterior to the bladder is also possible Surgery consultation appreciated, plan is for repeat CT abdomen with p.o. and IV contrast to assess for perforation, patient removed NG tube yesterday and contrast was unable to be given but will be given orally if passes swallow eval Patient was refusing CT abdomen but is now open to doing it Have started clears Urology consultation appreciated 2. Acute respiratory failure secondary to above Patient extubated 3. Hypokalemia Replete 4. Macrocytic anemia secondary to elevated reticulocyte count Status post 4 units of packed red blood cells 5. Severe leukocytosis-improved 6. Thrombocytosis-resolved Monitor 7. Acute kidney injury secondary to severe septic shock-improving Continue IV fluids Nephrology consultation appreciated 8. Non-STEMI likely type II secondary to severe sepsis Cardiac consultation appreciated 9. Coagulopathy secondary to DIC 10. Hypernatremia D5W 7. Debility secondary history of back surgery and comorbidities Patient has multiple skin wounds, continue wound care Patient may require nursing placement upon DC Prophylaxis: SCDs, Protonix DC planning: Follow-up on repeat CT abdomen Result Diagram: 01/23/19 0507 01/23/19 0507 Results 24hrs Laboratory Tests Test 01/23/19 00:24 01/23/19 05:05 01/23/19 05:07 01/23/19 12:53 Bedside Glucose 86 79 89 White Blood Count 11.8 H Red Blood Count 3.40 L Hemoglobin 9.8 L Hematocrit 29.8 L Mean Corpuscular 87.6 Volume Mean Corpuscular 28.8 L Hemoglobin Mean Corpuscular 32.9 Hemoglobin Concent Red Cell 15.5 H Distribution Width Platelet Count 207 # Mean Platelet Volume 10.1 Immature 3.100 H Granulocytes % Neutrophils % 76.3 Lymphocytes % 12.1 L Monocytes % 6.5 Eosinophils % 1.6 Basophils % 0.4 Nucleated Red Blood 0.0 Cells % Immature 0.370 H Granulocytes # Neutrophils # 9.0 H Lymphocytes # 1.4 Monocytes # 0.8 Eosinophils # 0.2 Basophils # 0.1 Nucleated Red Blood 0.0 Cells # Sodium Level 140 Potassium Level 2.5 *L Chloride Level 114 H Carbon Dioxide Level 16 L Anion Gap 10 Blood Urea Nitrogen 19 Creatinine 1.02 H Est Glomerular 56 L Filtrat Rate mL/min Glucose Level 76 Calcium Level 8.2 L Total Bilirubin 0.4 Direct Bilirubin 0.00 Indirect Bilirubin 0.4 Aspartate Amino 21 Transf (AST/SGOT) Alanine 39 Aminotransferase (AL T/SGPT) Alkaline Phosphatase 159 H Total Protein 5.5 L Albumin 2.4 L Globulin 3.10 Albumin/Globulin 0.77 Ratio Test 01/23/19 17:54 Bedside Glucose 109 Subjective 24 Hr Interval Summary Constitutional: disoriented Exam/Review of Systems Exam Vitals Vital Signs Date Temp Pulse Resp B/P (MAP) Pulse Ox O2 O2 Flow FiO2 Time Delivery Rate 01/23/19 98.7 84 16 160/88 100 08:21 (112) 01/22/19 Room Air 17:03 01/21/19 2.0 08:00 01/20/19 30 11:10 Intake and Output 01/22/19 01/22/19 01/23/19 1515:00 23:00 07:00 IntakeIntake Total 100 ml 350 ml 1200 ml OutputOutput Total 900 ml BalanceBalance 100 ml -550 ml 1200 ml Constitutional: alert Psych: confusion Respiratory: clear to auscultation Cardiovascular: regular rate and rhythm Gastrointestinal: soft; No distended Musculoskeletal: nl extremities to inspection Results Results 24hrs Laboratory Tests Test 01/23/19 00:24 01/23/19 05:05 01/23/19 05:07 01/23/19 12:53 Bedside Glucose 86 79 89 White Blood Count 11.8 H Red Blood Count 3.40 L Hemoglobin 9.8 L Hematocrit 29.8 L Mean Corpuscular 87.6 Volume Mean Corpuscular 28.8 L Hemoglobin Mean Corpuscular 32.9 Hemoglobin Concent Red Cell 15.5 H Distribution Width Platelet Count 207 # Mean Platelet Volume 10.1 Immature 3.100 H Granulocytes % Neutrophils % 76.3 Lymphocytes % 12.1 L Monocytes % 6.5 Eosinophils % 1.6 Basophils % 0.4 Nucleated Red Blood 0.0 Cells % Immature 0.370 H Granulocytes # Neutrophils # 9.0 H Lymphocytes # 1.4 Monocytes # 0.8 Eosinophils # 0.2 Basophils # 0.1 Nucleated Red Blood 0.0 Cells # Sodium Level 140 Potassium Level 2.5 *L Chloride Level 114 H Carbon Dioxide Level 16 L Anion Gap 10 Blood Urea Nitrogen 19 Creatinine 1.02 H Est Glomerular 56 L Filtrat Rate mL/min Glucose Level 76 Calcium Level 8.2 L Total Bilirubin 0.4 Direct Bilirubin 0.00 Indirect Bilirubin 0.4 Aspartate Amino 21 Transf (AST/SGOT) Alanine 39 Aminotransferase (AL T/SGPT) Alkaline Phosphatase 159 H Total Protein 5.5 L Albumin 2.4 L Globulin 3.10 Albumin/Globulin 0.77 Ratio Test 01/23/19 17:54 Bedside Glucose 109 Medications Medication Current Medications Vancomycin HCl (Vanco Iv Per Pharmacy) VANCOMYCIN PER PHARMACY PER PROTOCOL XX ; Start 01/16/19 at 23:30 Albuterol (Ventolin Hfa) 4 puff Q2H RESP THERAPY PRN INH SHORTNESS OF BREATH; Start 01/17/19 at 00:00 Ipratropium [place] (Atrovent Hfa) 4 puff Q2H RESP THERAPY PRN INH SHORTNESS OF BREATH; Start 01/17/19 at 00:00 Acetaminophen (Tylenol Liquid) 650 mg Q6H PRN PO PAIN LEVEL 1-3 OR FEVER; Start 01/17/19 at 00:00 Miscellaneous Information 1 ea NOTE XX ; Start 01/17/19 at 11:00 Glucose (Glutose) 15 gm Q15M PRN PO DECREASED GLUCOSE; Start 01/17/19 at 11:00 Glucose (Glutose) 22.5 gm Q15M PRN PO DECREASED GLUCOSE; Start 01/17/19 at 11:00 Dextrose (D50w Syringe) 25 ml Q15M PRN IV DECREASED GLUCOSE; Start 01/17/19 at 11:00 Dextrose (D50w Syringe) 50 ml Q15M PRN IV DECREASED GLUCOSE; Start 01/17/19 at 11:00 Glucagon (Glucagen) 1 mg Q15M PRN IM DECREASED GLUCOSE; Start 01/17/19 at 11:00 Glucose (Glutose) 15 gm Q15M PRN BUCCAL DECREASED GLUCOSE; Start 01/17/19 at 11:00 Famotidine (Pepcid Iv) 20 mg DAILY IV Last administered on 01/23/19 10:43; Admin Dose 20 MG; Start 01/18/19 at 09:00 Collagenase (Santyl) 1 applic DAILY TOP Last administered on 01/23/19 10:43; Admin Dose 1 APPLIC; Start 01/17/19 at 17:00 Morphine Sulfate (morphine) 1 mg Q3H PRN IV SEVERE PAIN LEVEL 7-10 Last administered on 01/23/19 12:54; Admin Dose 1 MG; Start 01/18/19 at 19:00 Piperacillin Sod/ Tazobactam Sod 100 ml @ 200 mls/hr Q6 IVPB Last administered on 01/23/19 18:00; Admin Dose 200 MLS/HR; Start 01/21/19 at 12:00 Carvedilol (Coreg) 3.125 mg BID PO ; Start 01/21/19 at 09:00 Hydralazine HCl (Apresoline) 10 mg Q4H PRN IV SBP >170 Last administered on 01/23/19 01:27; Admin Dose 10 MG; Start 01/21/19 at 14:30 Vancomycin HCl 250 ml @ 125 mls/hr Q24H IVPB Last administered on 01/23/19at 15:39; Admin Dose 125 MLS/HR; Start 01/22/19 at 16:00 Insulin Aspart (Novolog Insulin Pen) NOVOLOG *MILD* ALGORI... Q6 SC ; Start 01/23/19 at 00:00 Potassium Chloride 40 meq/ Dextrose 1,020 ml @ 50 mls/hr [id number] IV ; Start 01/23/19 at 10:00 ALLISON WOLFF Jan 23, 2019 18:18
[2019-01-23 20:00] VITALS: BP 188/88; PULSE 87; RESP 18
--- NOTE | 2019-01-23 23:40 | PN ---
Date/Time of Note Date/Time of Note DATE: 01/22/19 TIME: 23:36 Assessment/Plan Assessment/Plan Chief Complaint/Hosp Course 1. Pneumoperitoneum with perforated viscus. She has significantly improved. Extubated. Awaiting repeat CT. -Had lengthy discussion with patient's daughter regarding surgical options (explore lap) and high surgical risk, at this time, decision is to continue to treat conservatively with close monitoring -CT abdomen oral/iv/rectal for further characterization> pending -Supportive measures -Strict n.p.o.> parenteral nutrition -Pain management -Continue antibiotics 2. 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 UTI: 2/ #2 -abx per sensitivity -frequent bladder emptying/cath care 4. Hypochromic anemia: Status post PRBC transfusion, H&H stable -Monitor and transfuse as needed 5. Sepsis, leukocytosis: mild leukocytosis -Supportive (antibiotics, fluids,etc) -As above 6. Electrolyte imbalance: -Optimize electrolytes 7. JACKIE: improved -Limit nephrotoxic meds -Renally dose meds -Per renal 8. Thrombocytopenia mild, -Monitor 9. Transaminitis: Likely 11/27 #5 -Trend 10. NSTEMI: -Cardiac optimization per cards Thank you, Late entry 01/22 Subjective [address] pending. Feels better. Continues to have abdominal pain but improved. + Bowel function. No fevers, chills, sob, congested cough, cp, palpitations, keita, dizziness, nausea, vomiting, diarrhea, dysuria. Mild leukocytosis. Exam/Review of Systems Vital Signs Vitals Vital Signs Date Temp Pulse Resp B/P (MAP) Pulse Ox O2 O2 Flow FiO2 Time Delivery Rate 01/23/19 98.4 87 18 188/88 99 20:00 (121) 01/22/19 Room Air 17:03 01/21/19 2.0 08:00 01/20/19 30 11:10 Intake and Output 01/22/19 01/22/19 01/23/19 1515:00 23:00 07:00 IntakeIntake Total 100 ml 350 ml 1200 ml OutputOutput Total 900 ml BalanceBalance 100 ml -550 ml 1200 ml Exam Free Text/Dictation Constitutional: NAD, well developed; Psych: nl mood/affect, anxiety (Minimal) Head: normocephalic, atraumatic Eyes: nl conjunctiva, EOMI, nl lids, nl sclera ENMT: nl external ears & nose, no nl lips & teeth (poor dentition), mucosa pink and moist Neck: supple, non-tender; No jvd Respiratory: normal air movement; No congested cough, No labored breathing Cardiovascular: regular rate and rhythm, nl pulses; No edema Gastrointestinal: soft, distended (improved-moderate), tender (Diffuse-impro kendrick) Genitourinary - Female: nl external genitalia Musculoskeletal: nl extremities to inspection, nl gait and stance Extremities: normal pulses Neurological: nl speech, no normal strength (generalized weakness) Skin: No rash or lesions Lymph: nl lymph nodes Results Result Diagram: 01/23/19 0507 01/23/19 0507 ALEK HANDLEY MD Jan 23, 2019 23:40
--- NOTE | 2019-01-23 23:41 | PN ---
Date/Time of Note Date/Time of Note DATE: 01/23/19 TIME: 23:40 Assessment/Plan Assessment/Plan Chief Complaint/Hosp Course 1. Pneumoperitoneum with perforated viscus. Previously family did not consent to proceeding to surgery. However, she has significantly improved. Extubated. Awaiting repeat CT. -CT abdomen oral/iv/rectal for further characterization> pending -Supportive measures -Strict n.p.o.> parenteral nutrition -Pain management -Continue antibiotics 2. 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 UTI: 2/2 #2 -abx per sensitivity -frequent bladder emptying/cath care 4. Hypochromic anemia: Status post PRBC transfusion, H&H stable -Monitor and transfuse as needed 5. Sepsis, leukocytosis: mild leukocytosis -Supportive (antibiotics, fluids,etc) -As above 6. Electrolyte imbalance: -Optimize electrolytes 7. JACKIE: improved -Limit nephrotoxic meds -Renally dose meds -Per renal 8. Thrombocytopenia mild, -Monitor 9. Transaminitis: Likely 2/ #5 -Trend 10. NSTEMI: -Cardiac optimization per cards Thank you, Subjective [address] still pending. Continues to have abdominal pain but improved. + Bowel function. No fevers, chills, sob, congested cough, cp, palpitations, keita, dizziness, nausea, vomiting, diarrhea, dysuria. Mild leukocytosis. Exam/Review of Systems Vital Signs Vitals Vital Signs Date Temp Pulse Resp B/P (MAP) Pulse Ox O2 O2 Flow FiO2 Time Delivery Rate 01/23/19 98.4 87 18 188/88 99 20:00 (121) 01/22/19 Room Air 17:03 01/21/19 2.0 08:00 01/20/19 30 11:10 Intake and Output 01/22/19 01/22/19 01/23/19 1515:00 23:00 07:00 IntakeIntake Total 100 ml 350 ml 1200 ml OutputOutput Total 900 ml BalanceBalance 100 ml -550 ml 1200 ml Exam Free Text/Dictation Constitutional: NAD, well developed; Psych: nl mood/affect, anxiety (Minimal) Head: normocephalic, atraumatic Eyes: nl conjunctiva, EOMI, nl lids, nl sclera ENMT: nl external ears & nose, no nl lips & teeth (poor dentition), mucosa pink and moist Neck: supple, non-tender; No jvd Respiratory: normal air movement; No congested cough, No labored breathing Cardiovascular: regular rate and rhythm, nl pulses; No edema Gastrointestinal: soft, distended (improved-moderate), tender (Diffuse- improved) Genitourinary - Female: nl external genitalia Musculoskeletal: nl extremities to inspection, nl gait and stance Extremities: normal pulses Neurological: nl speech, no normal strength (generalized weakness) Skin: No rash or lesions Lymph: nl lymph nodes Results Result Diagram: 01/23/19 0507 01/23/19 0507 ALEK HANDLEY MD Jan 23, 2019 23:41
[2019-01-24] MEDS: PIPER-TAZO 3.375 GM IV (PMX) 100 ML IVPB SCH ×5 (01:05→23:57)
[2019-01-24 01:10] VITALS: BP 179/79; PULSE 85
[2019-01-24] MEDS: hydrALAzine 20 MG INJ IV PRN (01:17)
[2019-01-24] MEDS ORDERED: IOHEXOL 300MG/ML 150 ML BTL ONE (01:21)
[2019-01-24 02:00] VITALS: BP 170/81; PULSE 94; RESP 17
[2019-01-24] MEDS ORDERED: ALPRAZOLAM 0.5 MG TAB PO ONE (04:00)
[2019-01-24] MEDS: INSULIN ASPART [NOVOLOG] 3 ML PEN SC SCH ×4 (05:55→18:00)
[2019-01-24] MEDS: POTASSIUM CHLORIDE 40 MEQ in DEXTROSE 5% 1,000 ML IV SCH (05:58)
--- NOTE | 2019-01-24 07:10 | CONS ---
Assessment/Plan Assessment/Plan Hospital Course (Demo Recall) 1) pneumoperitoneum and sepsis could be related to pt taking motrin for some pain continue with vanco/zosyn at present to renally dose them await decision by family regarding surgery vs hospice 01/18 - continue with vanco/zosyn CoNS in blood, only one bottle, likely represents contamination e.coli in urine is sensitive to the zosyn pt has EtOH abuse lactic acid has normalized 01/19 - MRSA in nasal area, likely perf is gastric or duodenal to continue with vanco at present and zosyn decrease in platelets noted, may need to change vanco if trend continues 01/20 - no significant change a.m. labs are pending due to blood tx overnight on vanco/zosyn pt has GNR in blood cx, ID is pending but sensitive to zosyn 01/21 - increase dose of zosyn as renal function is further improved awaits CT abd/pelv repeat to see if pt can start to eat alcaligenes was also in blood cx and is a stool bacteria 01/22 - pt passed swallow eval for oral contrast, but CT is still pending continue with vanco/zosyn at present 01/24 - await CT results, pt has tolerated clear liquids though on vanco/zosyn to continue at present pt will need zosyn thru 01/29/19 at least (pt will need eval for possible L hip osteo and if present will need a longer course of the zosyn when pt on full orals will change vanco to doxycycline 2)severe anemia pt is being transfused only smears of stool since admission to get hemoccult 01/18 - Hgb is more stable 01/19 - drop in Hgb again, will need blood tx again 01/20 - pt tx again, a.m. labs are pending 01/21 - Hgb is at 9 now 01/22 - Hgb is stable 3) ARF with pyuria and hematuria (e.coli in urine) improving with hydration and blood tx await urine cx results 01/18 - improving urine output and creatinine urine cx has e.coli that is sensitive to zosyn renal u/s suggests hydro on the R and possible renal clot or debris on L 01/19 - further improvement in creatinine on zosyn for e.coli in urine 01/21 - further improvement in renal function 01/22 - creatinine almost normal 01/24 - creatinine has normalized while on vanco 4) elevated troponins likely due to stress from severe anemia 5) hepatitis again likely due to sepsis and severe anemia check hep serologies 01/18 - hep serologies are pending 01/19 - neg hep serologies and HIV LFT's are trending down 6) L hip eschar/decubitus unstageable wound cx was ordered 01/18 - wound cx has not been done, nurse was informed 01/19 - wound cx was obtained and is pending 01/20 - wound cx has GPC growing 01/21 - MRSA in wound cx from hip, continue with vanco at present platelets are improving 01/22 - MRSA and alcaligenes was in wound cx ESR is extremely high, pt will likely need MRI of L hip area to see if osteomyelitis is present when pt is more stable 01/24 - when pt is eating will order MRI of L hip to see if osteo is present (pt has deep ulcer there and very high ESR) continue vanco/zosyn at present 7) hypoalbuminemia pt came in with low albumin, she has likely been sick or not eating well for a while 8) CoNS bacteremia 01/18 - only one bottle has CoNS, likely this is contamination continue with vanco at present, await final wound cx results 9) decrease in platelets 01/19 - consider change of vanco if trend continues 01/20 - her MRSA is sensitive to doxy so could change vanco to that 01/21 - platelets are improved 01/22 - platelets are WNL 10) GNR in original blood cx (alcaligenes faecalis) 01/20 - ID is pending but it is sensitive to zosyn 01/21 - alcaligenes is a stool bacteria and likely related to her peritonitis continue with zosyn 01/22 - alcaligines was also in wound cx when pt is eating and more stable will order MRI of L hip to verify no osteo or abscess is present 01/24 - pt will need at least zosyn thru 01/29, longer if osteo of L hip is present Consultation Date/Type/Reason Admit Date/Time Jan 16, 2019 at 23:33 Initial Consult Date 01/17/19 Type of Consult ID Requesting Provider: NINA HOLT Date/Time of Note DATE: 01/24/19 TIME: 07:03 24 HR Interval Summary Free Text/Dictation pt on clear liquids without issue pt had CT early this am. but not uploaded into PACS system yet spoke to nurse no N, V, abd pain Exam/Review of Systems Exam Vitals Vital Signs Date Temp Pulse Resp B/P (MAP) Pulse Ox O2 O2 Flow FiO2 Time Delivery Rate 01/24/19 98.8 94 17 170/81 97 02:00 (110) 01/22/19 Room Air 17:03 01/21/19 2.0 08:00 01/20/19 30 11:10 Intake and Output 01/23/19 01/23/19 01/24/19 1515:00 23:00 07:00 IntakeIntake Total 200 ml 900 ml 340 ml OutputOutput Total 1800 ml 900 ml 800 ml BalanceBalance -1600 ml 0 ml -460 ml Respiratory: clear to auscultation Cardiovascular: regular rate and rhythm Gastrointestinal: soft, non-tender Results Result Diagram: 01/24/19 0554 01/24/19 0554 Results 24hrs Laboratory Tests Test 01/23/19 12:53 01/23/19 17:54 01/24/19 01:04 01/24/19 05:53 Bedside Glucose 89 109 94 87 Test 01/24/19 05:54 White Blood Count 10.2 Red Blood Count 2.81 L Hemoglobin 8.1 L Hematocrit 25.2 L Mean Corpuscular 89.7 Volume Mean Corpuscular 28.8 L Hemoglobin Mean Corpuscular 32.1 Hemoglobin Concent Red Cell Distribution 15.7 H Width Platelet Count 235 Mean Platelet Volume 9.9 Immature Granulocytes 1.800 H % Neutrophils % 74.8 Lymphocytes % 14.1 L Monocytes % 6.2 Eosinophils % 2.5 Basophils % 0.6 Nucleated Red Blood 0.0 Cells % Immature Granulocytes 0.180 H # Neutrophils # 7.7 H Lymphocytes # 1.4 Monocytes # 0.6 Eosinophils # 0.3 Basophils # 0.1 Nucleated Red Blood 0.0 Cells # Sodium Level 138 Potassium Level 2.9 *L Chloride Level 115 H Carbon Dioxide Level 16 L Anion Gap 7 Blood Urea Nitrogen 13 Creatinine 0.94 Est Glomerular Filtrat > 60 Rate mL/min Glucose Level 88 Calcium Level 8.2 L Medications Medication Current Medications Vancomycin HCl (Vanco Iv Per Pharmacy) VANCOMYCIN PER PHARMACY PER PROTOCOL XX ; Start 01/16/19 at 23:30 Albuterol (Ventolin Hfa) 4 puff Q2H RESP THERAPY PRN INH SHORTNESS OF BREATH; Start 01/17/19 at 00:00 Ipratropium [place] (Atrovent Hfa) 4 puff Q2H RESP THERAPY PRN INH SHORTNESS OF BREATH; Start 01/17/19 at 00:00 Acetaminophen (Tylenol Liquid) 650 mg Q6H PRN PO PAIN LEVEL 1-3 OR FEVER; Start 01/17/19 at 00:00 Miscellaneous Information 1 ea NOTE XX ; Start 01/17/19 at 11:00 Glucose (Glutose) 15 gm Q15M PRN PO DECREASED GLUCOSE; Start 01/17/19 at 11:00 Glucose (Glutose) 22.5 gm Q15M PRN PO DECREASED GLUCOSE; Start 01/17/19 at 11:00 Dextrose (D50w Syringe) 25 ml Q15M PRN IV DECREASED GLUCOSE; Start 01/17/19 at 11:00 Dextrose (D50w Syringe) 50 ml Q15M PRN IV DECREASED GLUCOSE; Start 01/17/19 at 11:00 Glucagon (Glucagen) 1 mg Q15M PRN IM DECREASED GLUCOSE; Start 01/17/19 at 11:00 Glucose (Glutose) 15 gm Q15M PRN BUCCAL DECREASED GLUCOSE; Start 01/17/19 at 11:00 Famotidine (Pepcid Iv) 20 mg DAILY IV Last administered on 01/23/19at 10:43; Admin Dose 20 MG; Start 01/18/19 at 09:00 Collagenase (Santyl) 1 applic DAILY TOP Last administered on 01/23/19at 10:43; Admin Dose 1 APPLIC; Start 01/17/19 at 17:00 Morphine Sulfate (morphine) 1 mg Q3H PRN IV SEVERE PAIN LEVEL 7-10 Last administered on 01/23/19at 12:54; Admin Dose 1 MG; Start 01/18/19 at 19:00 Piperacillin Sod/ Tazobactam Sod 100 ml @ 200 mls/hr Q6 IVPB Last administered on 01/24/19at 05:55; Admin Dose 200 MLS/HR; Start 01/21/19 at 12:00 Carvedilol (Coreg) 3.125 mg BID PO Last administered on 01/23/19at 22:38; Admin Dose 3.125 MG; Start 01/21/19 at 09:00 Hydralazine HCl (Apresoline) 10 mg Q4H PRN IV SBP >170 Last administered on 01/24/19at 01:17; Admin Dose 10 MG; Start 01/21/19 at 14:30 Vancomycin HCl 250 ml @ 125 mls/hr Q24H IVPB Last administered on 01/23/19at 15:39; Admin Dose 125 MLS/HR; Start 01/22/19 at 16:00 Insulin Aspart (Novolog Insulin Pen) NOVOLOG *MILD* ALGORI... Q6 SC ; Start 01/23/19 at 00:00 Potassium Chloride 40 meq/ Dextrose 1,020 ml @ 50 mls/hr [id number] IV Last a dministered on 01/24/19at 05:58; Admin Dose 50 MLS/HR; Start 01/23/19 at 10:00 PATSY LEVY MD Jan 24, 2019 07:10
[2019-01-24] MEDS ORDERED: POTASSIUM CHLORIDE 50 ML IVPB SCH (08:00)
[2019-01-24 08:05] VITALS: BP 160/83; PULSE 89; RESP 20
[2019-01-24] MEDS: COLLAGENASE 5 GM (UD JAR) TOP SCH (08:28)
[2019-01-24] MEDS: FAMOTIDINE 20 MG INJ IV SCH (08:29)
[2019-01-24] MEDS: POTASSIUM CHLORIDE 100 ML IVPB SCH ×2 (09:51→12:18)
[2019-01-24] MEDS: BALSAM PERU/CASTOR OIL 60 GM TUBE TOP SCH ×2 (09:51→20:26)
--- NOTE | 2019-01-24 09:51 | PN ---
DATE: 01/24/2019 SUBJECTIVE: The patient is stable, no events overnight. No fevers, chills, nausea, vomiting. Patie nt noted to have a CT scan in the morning. The patient is currently on clear liquids. OBJECTIVE: VITAL SIGNS: Blood pressure is 160/83, respirations 20, pulse 89, temperature 98.4. HEENT: Head is normocephalic. NECK: Supple. HEART: Regular rate. LUNGS: Show diminished breath sounds at the base. ABDOMEN: Soft, nontender to palpation without rebound or guarding. EXTREMITIES: Negative for clubbing, cyanosis, no edema. DERMATOLOGIC: No rashes. MUSCULOSKELETAL: No joint effusions. NEUROLOGIC: No change in exam. MEDICATIONS: The patient's medications have been reviewed. LABORATORY DATA: The laboratory data has been reviewed. The patient's potassium is 2.9. White coun t 10.2, hemoglobin 8.1, platelet count is 235. IMAGING STUDIES: The patient's imaging studies were reviewed. CT scan was reviewed. ASSESSMENT AND PLAN: 1. Nonoliguric kidney injury with unknown baseline creatinine. Etiology of acute kidney injury is s econdary to acute tubular necrosis due to volume depletion, shock and NSAIDs. The patient's renal f unction has improved. Continue current treatment plan, supportive care, renally dose all medication. 2. Hyperkalemia. The patient has a significant total body deficit. Continue to monitor and replete . 3. Hypernatremia, resolved. 4. Metabolic acidosis secondary to acute kidney injury, resolving. 5. Sepsis, status post shock secondary to pneumoperitoneum and urinary tract infection. Continue an tibiotic therapy. 6. Respiratory failure, status post extubation, improved. 7. Perforated viscus. Patient seen by general surgery. Repeat CT scan was reviewed. We will follo w up with surgery for recommendations 8. Leukocytosis, likely from sepsis and anemia, improving. 9. Elevated troponin from non-STEMI. Continue to monitor. 10. Acute encephalopathy, etiology is toxic metabolic. 11. Decubitus wound. Continue wound care. Dictated By: SHAW RODAS/CRISTY Conf#: [id number] DID#: [id number]
--- NOTE | 2019-01-24 14:24 | PN ---
Date/Time of Note Date/Time of Note DATE: 01/24/19 TIME: 14:24 Assessment/Plan VTE Prophylaxis Risk score (from Ns)>0 risk: 8 SCD applied (from Ns): Yes Pharmacological prophylaxis: heparin Lines/Catheters IV Catheter Type (from Nrs): Central Line Central line still needed: Yes Urinary Cath still in place: Yes Reason Cath still needed: urinary retention Assessment/Plan Hospital Course 1. Septic shock: Secondary to pneumoperitoneum, UTI, infected wound versus etiology-resolving Culture growing E. coli, blood culture growing gram-negative rods, wound cultures noted Continue broad-spectrum antibiotics of vancomycin and Zosyn Off pressors ID consultation appreciated CT abdomen does show pneumoperitoneum compatible with a perforated hollow viscus, etiology is uncertain, abnormal urinary bladder with possible emphysema tous cystitis and possible fistula with, Abscess anterior to the bladder is also possible Surgery consultation appreciated, plan is for repeat CT abdomen with p.o. and IV contrast to assess for perforation, patient removed NG tube yesterday and contrast was unable to be given but will be given orally if passes swallow eval Patient was refusing CT abdomen but is now open to doing it Have started clears Urology consultation appreciated 2. Acute respiratory failure secondary to above Patient extubated 3. Hypokalemia Replete 4. Macrocytic anemia secondary to elevated reticulocyte count Status post 4 units of packed red blood cells 5. Severe leukocytosis-improved 6. Thrombocytosis-resolved Monitor 7. Acute kidney injury secondary to severe septic shock-improving Continue IV fluids Nephrology consultation appreciated 8. Non-STEMI likely type II secondary to severe sepsis Cardiac consultation appreciated 9. Coagulopathy secondary to DIC 10. Hypernatremia D5W 7. Debility secondary history of back surgery and comorbidities Patient has multiple skin wounds, continue wound care Patient may require nursing placement upon DC Prophylaxis: SCDs, Protonix Result Diagram: 01/24/19 0554 01/24/19 0554 Results 24hrs Laboratory Tests Test 01/23/19 17:54 01/24/19 01:04 01/24/19 05:53 01/24/19 05:54 Bedside Glucose 109 94 87 White Blood Count 10.2 Red Blood Count 2.81 L Hemoglobin 8.1 L Hematocrit 25.2 L Mean Corpuscular Volume 89.7 Mean Corpuscular 28.8 L Hemoglobin Mean Corpuscular 32.1 Hemoglobin Concent Red Cell Distribution 15.7 H Width Platelet Count 235 Mean Platelet Volume 9.9 Immature Granulocytes % 1.800 H Neutrophils % 74.8 Lymphocytes % 14.1 L Monocytes % 6.2 Eosinophils % 2.5 Basophils % 0.6 Nucleated Red Blood 0.0 Cells % Immature Granulocytes # 0.180 H Neutrophils # 7.7 H Lymphocytes # 1.4 Monocytes # 0.6 Eosinophils # 0.3 Basophils # 0.1 Nucleated Red Blood 0.0 Cells # Sodium Level 138 Potassium Level 2.9 *L Chloride Level 115 H Carbon Dioxide Level 16 L Anion Gap 7 Blood Urea Nitrogen 13 Creatinine 0.94 Est Glomerular Filtrat > 60 Rate mL/min Glucose Level 88 Calcium Level 8.2 L Test 01/24/19 12:25 Bedside Glucose 102 Subjective 24 Hr Interval Summary Free Text/Dictation No change to clinical status Appears comfortable Exam/Review of Systems Exam Vitals Vital Signs Date Temp Pulse Resp B/P (MAP) Pulse Ox O2 O2 Flow FiO2 Time Delivery Rate 01/24/19 98.4 89 20 160/83 96 08:05 (108) 01/22/19 Room Air 17:03 01/21/19 2.0 08:00 01/20/19 30 11:10 Intake and Output 01/23/19 01/23/19 01/24/19 1515:00 23:00 07:00 IntakeIntake Total 200 ml 900 ml 340 ml OutputOutput Total 1800 ml 900 ml 800 ml BalanceBalance -1600 ml 0 ml -460 ml Constitutional: alert, oriented, well developed Psych: no complaints, nl mood/affect Head: normocephalic, atraumatic Eyes: nl conjunctiva, EOMI, nl lids, nl sclera, PERRL ENMT: nl external ears & nose, nl lips & teeth, nl nasal mucosa & septum Neck: supple, non-tender Respiratory: clear to auscultation, normal air movement Cardiovascular: regular rate and rhythm, nl pulses Gastrointestinal: soft, nl liver, spleen, non-tender Musculoskeletal: nl extremities to inspection, nl gait and stance Extremities: normal pulses Neurological: [employer] II-XII intact, nl mental status, nl speech, nl strength Skin: nl turgor; No rash or lesions Lymph: nl lymph nodes Results Results 24hrs Laboratory Tests Test 01/23/19 17:54 01/24/19 01:04 01/24/19 05:53 01/24/19 05:54 Bedside Glucose 109 94 87 White Blood Count 10.2 Red Blood Count 2.81 L Hemoglobin 8.1 L Hematocrit 25.2 L Mean Corpuscular Volume 89.7 Mean Corpuscular 28.8 L Hemoglobin Mean Corpuscular 32.1 Hemoglobin Concent Red Cell Distribution 15.7 H Width Platelet Count 235 Mean Platelet Volume 9.9 Immature Granulocytes % 1.800 H Neutrophils % 74.8 Lymphocytes % 14.1 L Monocytes % 6.2 Eosinophils % 2.5 Basophils % 0.6 Nucleated Red Blood 0.0 Cells % Immature Granulocytes # 0.180 H Neutrophils # 7.7 H Lymphocytes # 1.4 Monocytes # 0.6 Eosinophils # 0.3 Basophils # 0.1 Nucleated Red Blood 0.0 Cells # Sodium Level 138 Potassium Level 2.9 *L Chloride Level 115 H Carbon Dioxide Level 16 L Anion Gap 7 Blood Urea Nitrogen 13 Creatinine 0.94 Est Glomerular Filtrat > 60 Rate mL/min Glucose Level 88 Calcium Level 8.2 L Test 01/24/19 12:25 Bedside Glucose 102 Medications Medication Current Medications Vancomycin HCl (Vanco Iv Per Pharmacy) VANCOMYCIN PER PHARMACY PER PROTOCOL XX ; Start 01/16/19 at 23:30 Albuterol (Ventolin Hfa) 4 puff Q2H RESP THERAPY PRN INH SHORTNESS OF BREATH; Start 01/17/19 at 00:00 Ipratropium [place] (Atrovent Hfa) 4 puff Q2H RESP THERAPY PRN INH SHORTNESS OF BREATH; Start 01/17/19 at 00:00 Acetaminophen (Tylenol Liquid) 650 mg Q6H PRN PO PAIN LEVEL 1-3 OR FEVER; Start 01/17/19 at 00:00 Miscellaneous Information 1 ea NOTE XX ; Start 01/17/19 at 11:00 Glucose (Glutose) 15 gm Q15M PRN PO DECREASED GLUCOSE; Start 01/17/19 at 11:00 Glucose (Glutose) 22.5 gm Q15M PRN PO DECREASED GLUCOSE; Start 01/17/19 at 11:00 Dextrose (D50w Syringe) 25 ml Q15M PRN IV DECREASED GLUCOSE; Start 01/17/19 at 11:00 Dextrose (D50w Syringe) 50 ml Q15M PRN IV DECREASED GLUCOSE; Start 01/17/19 at 11:00 Glucagon (Glucagen) 1 mg Q15M PRN IM DECREASED GLUCOSE; Start 01/17/19 at 11:00 Glucose (Glutose) 15 gm Q15M PRN BUCCAL DECREASED GLUCOSE; Start 01/17/19 at 11:00 Famotidine (Pepcid Iv) 20 mg DAILY IV Last administered on 01/24/19 08:29; Admin Dose 20 MG; Start 01/18/19 at 09:00 Collagenase (Santyl) 1 applic DAILY TOP Last administered on 01/24/19 08:28; Admin Dose 1 APPLIC; Start 01/17/19 at 17:00 Morphine Sulfate (morphine) 1 mg Q3H PRN IV SEVERE PAIN LEVEL 7-10 Last administered on 01/23/19 12:54; Admin Dose 1 MG; Start 01/18/19 at 19:00 Piperacillin Sod/ Tazobactam Sod 100 ml @ 200 mls/hr Q6 IVPB Last administered on 01/24/19 12:19; Admin Dose 200 MLS/HR; Start 01/21/19 at 12:00 Carvedilol (Coreg) 3.125 mg BID PO Last administered on 01/24/19 08:29; Admin Dose 3.125 MG; Start 01/21/19 at 09:00 Hydralazine HCl (Apresoline) 10 mg Q4H PRN IV SBP >170 Last administered on 01/24/19at 01:17; Admin Dose 10 MG; Start 01/21/19 at 14:30 Vancomycin HCl 250 ml @ 125 mls/hr Q24H IVPB Last administered on 01/23/19at 15:39; Admin Dose 125 MLS/HR; Start 01/22/19 at 16:00 Insulin Aspart (Novolog Insulin Pen) NOVOLOG *MILD* ALGORI... Q6 SC ; Start 01/23/19 at 00:00 Potassium Chloride 40 meq/ Dextrose 1,020 ml @ 50 mls/hr [id number] IV Last administered on 01/24/19at 05:58; Admin Dose 50 MLS/HR; Start 01/23/19 at 10:00 SONAL ALBERT MD Jan 24, 2019 14:24
[2019-01-24 14:32] VITALS: BP 140/88; PULSE 82; RESP 18
[2019-01-24] MEDS: VANCOMYCIN 1 GM 250 ML IVPB SCH (16:27)
[2019-01-24 20:00] VITALS: BP 198/95; PULSE 85; RESP 18
[2019-01-24] MEDS: LORAZEPAM 2 MG INJ IV PRN (21:06)
--- NOTE | 2019-01-24 21:57 | PN ---
Date/Time of Note Date/Time of Note DATE: 01/24/19 TIME: 21:46 Assessment/Plan Lines/Catheters IV Catheter Type (from [facility]): Central Line Valadez in Place (from [facility]): Yes Assessment/Plan Chief Complaint/Hosp Course 1. Pneumoperitoneum with probable perforated viscus. Previously family did not consent to proceeding to surgery. She has significantly improved. Extubated. Repeat CT without bowel perforation or leak rather ? bladder perforation, ? cholangitis. 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 UTI: 11/27 #2 -abx per sensitivity -frequent bladder emptying/cath care 4. Hypochromic anemia: Status post PRBC transfusion, H&H stable -Monitor and transfuse as needed 5. Sepsis, leukocytosis: improved -Supportive (antibiotics, fluids,etc) -As above 6. Electrolyte imbalance: -Optimize electrolytes 7. JACKIE: improved -Limit nephrotoxic meds -Renally dose meds -Per renal 8. Thrombocytopenia mild, -Monitor 9. Transaminitis: Likely 11/27 #5 -Trend 10. NSTEMI: -Cardiac optimization per cards Thank you, Subjective [address] without perforation or leak from intestines but possibly bladder, ? cholangitis. Abdominal pain improved. +Bowel function. No fevers, chills, sob, congested cough, cp, palpitations, keita, dizziness, nausea, vomiting, diarrhea, dysuria. Leukocytosis resolved Exam/Review of Systems Vital Signs Vitals Vital Signs Date Temp Pulse Resp B/P (MAP) Pulse Ox O2 O2 Flow FiO2 Time Delivery Rate 01/24/19 98.3 85 18 198/95 99 20:00 (129) 01/22/19 Room Air 17:03 01/21/19 2.0 08:00 01/20/19 30 11:10 Intake and Output 01/23/19 01/23/19 01/24/19 1515:00 23:00 07:00 IntakeIntake Total 200 ml 900 ml 340 ml OutputOutput Total 1800 ml 900 ml 800 ml BalanceBalance -1600 ml 0 ml -460 ml Exam Free Text/Dictation Constitutional: NAD, well developed; Psych: nl mood/affect, anxiety (Minimal) Head: normocephalic, atraumatic Eyes: nl conjunctiva, EOMI, nl lids, nl sclera ENMT: nl external ears & nose, no nl lips & teeth (poor dentition), mucosa pink and moist Neck: supple, non-tender; No jvd Respiratory: normal air movement; No congested cough, No labored breathing Cardiovascular: regular rate and rhythm, nl pulses; No edema Gastrointestinal: soft, distended (improved-moderate), min tender Genitourinary - Female: nl external genitalia Musculoskeletal: nl extremities to inspection, nl gait and stance Extremities: normal pulses Neurological: nl speech, no normal strength (generalized weakness) Skin: No rash or lesions Lymph: nl lymph nodes Results Free Text/Dictation CT: 1. Focal thinning of the superior bladder wall concerning for bladder wall defect/injury. Small amount of air at the superior margin of the bladder near the defect, unclear if this is within the bladder or adjacent to the bladder. Correlate clinically. Consider further evaluation with cystoscopy. 2. No evidence of extraluminal contrast to suggest a bowel leak. 3. Small volume ascites. Small bilateral pleural effusions. Body wall edema. 4. Mild common bile duct dilatation measuring up to 9 mm. Possible common bile duct wall enhancement. Correlate for possible cholangitis. Correlate with serum bilirubin for possible biliary obstruction. If clinically indicated, consider further evaluation with MRCP with contrast. 5. Bladder wall thickening may be due to underdistension and generalized ascites. However, if there is clinical concern for acute cholecystitis, this may be further evaluated with ultrasound. 6. Mild irregular contour of the liver correlate for chronic liver disease. 7. Splenomegaly. Nonspecific small hyperdensities in the spleen, may represent cysts, hemangiomas, infection, or neoplasm. 8. Age-indeterminate mild compression deformity of T11 vertebral body, mildly increased compared to prior MRI spine on 01/21/2018. Result Diagram: 01/24/19 0554 01/24/19 1502 ALEK HANDLEY MD Jan 24, 2019 21:57
[2019-01-25 02:05] VITALS: BP 141/86; PULSE 80; RESP 18
[2019-01-25] MEDS: LORAZEPAM 2 MG INJ IV PRN ×4 (03:46→23:35)
[2019-01-25] MEDS: POTASSIUM CHLORIDE 40 MEQ in DEXTROSE 5% 1,000 ML IV SCH ×2 (03:46→23:37)
[2019-01-25] MEDS: PIPER-TAZO 3.375 GM IV (PMX) 100 ML IVPB SCH ×3 (05:56→18:28)
[2019-01-25] MEDS: INSULIN ASPART [NOVOLOG] 3 ML PEN SC SCH ×5 (06:00→21:00)
[2019-01-25] MEDS ORDERED: ALTEPLASE (CATHFLO) 2 MG INJ CATHETER ONE (07:00)
[2019-01-25 08:00] VITALS: BP 176/90; PULSE 86; RESP 17
[2019-01-25] MEDS: HYDROCODONE/APAP (5/325) TAB PO PRN ×2 (08:22→20:54)
[2019-01-25] MEDS: FAMOTIDINE 20 MG INJ IV SCH (08:23)
[2019-01-25] MEDS ORDERED: POTASSIUM CHLORIDE (SR) 20 MEQ TAB PO STA (08:28)
--- NOTE | 2019-01-25 09:22 | PN ---
DATE: 01/25/2019 SUBJECTIVE: The patient is stable, no events overnight. OBJECTIVE: VITAL SIGNS: Blood pressure is 176/90, respirations 17, pulse 86, temperature 98.2. HEENT: Head is normocephalic. NECK: Supple. HEART: Regular rate. LUNGS: Show diminished breath sounds at the base. ABDOMEN: Soft, nontender to palpation without rebound or guarding. EXTREMITIES: Negative for clubbing, cyanosis, no edema. DERMATOLOGIC: No rashes. MUSCULOSKELETAL: Positive wounds. NEUROLOGIC: No change in exam. MEDICATIONS: Reviewed. LABORATORY DATA: From 01/25/2019 was reviewed. ASSESSMENT AND PLAN: 1. Nonoliguric acute kidney injury with unknown baseline creatinine. Etiology of acute kidney injur y is secondary to acute tubular necrosis. The patient's renal function is improved. Continue tien hernandez treatment plans, supportive care, renally dose all medications. 2. Hypokalemia. Continue to monitor and replete. 3. Hypomagnesemia. Continue to replete and monitor. 4. Metabolic acidosis secondary to acute kidney injury. Continue to monitor. 5. Sepsis, status post shock secondary to pneumoperitoneum and urinary tract infection. Continue cu rrent antibiotic regimen. 6. Respiratory failure. The patient is status post extubation, improving. 7. Perforated viscus. Continue to monitor by general surgery. 8. Non-ST elevation myocardial infarction. Continue medical management. 9. Acute encephalopathy, etiology is toxic metabolic. 10. Decubitus wound. Continue wound care. Dictated By: SHAW OLMSTEAD DO NR/NTS Conf#: [id number] DID#: [id number] CC: ALEK HANDLEY MD; SONAL ALBERT MD; BLAISE MARTINS MD;*EndCC*
--- NOTE | 2019-01-25 09:29 | PN ---
Date/Time of Note Date/Time of Note DATE: 01/25/19 TIME: 09:25 Assessment/Plan Lines/Catheters IV Catheter Type (from [facility]): Central Line Valadez in Place (from [facility]): Yes Assessment/Plan Chief Complaint/Hosp Course 1. Pneumoperitoneum with probable perforated viscus. Previously family did not consent to proceeding to surgery. She has significantly improved. Extubated. Repeat CT without bowel perforation or leak rather ? bladder perforation, ? cholangitis. -Supportive measures -Diet as tolerated -Pain management -Antibiotics -Urology follow-up -Valadez -GI follow up 2. 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 UTI: 11/27 #2 -abx per sensitivity -frequent bladder emptying/cath care 4. Hypochromic anemia: Status post PRBC transfusion, H&H stable -Monitor and transfuse as needed -Per hematology 5. Sepsis, leukocytosis: Resolved -Monitor 6. Electrolyte imbalance: -Optimize electrolytes 7. JACKIE: improved -Limit nephrotoxic meds -Renally dose meds -Per renal 8. Thrombocytopenia mild, -Monitor 9. Transaminitis: Likely 11/27 #5 -Trend 10. NSTEMI: -Cardiac optimization per cards Thank you. Patient seen and examined in collaboration with Dr. Osei Sanford. Subjective 24 Hr Interval Summary Some abdominal pain. + Bowel function. CT noted. No fevers, chills, sob, congested cough, cp, palpitations, keita, dizziness, nausea, vomiting, diarrhea, dysuria. Exam/Review of Systems Vital Signs Vitals Vital Signs Date Temp Pulse Resp B/P (MAP) Pulse Ox O2 O2 Flow FiO2 Time Delivery Rate 01/25/19 98.2 86 17 176/90 99 08:00 (118) 01/22/19 Room Air 17:03 01/21/19 2.0 08:00 Intake and Output 01/24/19 01/24/19 01/25/19 1515:00 23:00 07:00 IntakeIntake Total 300 ml 2820 ml 835 ml OutputOutput Total 2000 ml BalanceBalance 300 ml 820 ml 835 ml Exam Free Text/Dictation Constitutional: NAD, well developed; Psych: nl mood/affect, anxiety (Minimal) Head: normocephalic, atraumatic Eyes: nl conjunctiva, EOMI, nl lids, nl sclera ENMT: nl external ears & nose, no nl lips & teeth (poor dentition), mucosa pink and moist Neck: supple, non-tender; No jvd Respiratory: normal air movement; No congested cough, No labored breathing Cardiovascular: regular rate and rhythm, nl pulses; No edema Gastrointestinal: soft, distended (improved-moderate), min tender, no rebound Genitourinary - Female: nl external genitalia Musculoskeletal: nl extremities to inspection, nl gait and stance Extremities: normal pulses Neurological: nl speech, no normal strength (generalized weakness) Skin: No rash or lesions Lymph: nl lymph nodes Results Result Diagram: 01/25/19 0513 01/25/19 0513 MASSIMO WATKINS NP Jan 25, 2019 09:29
[2019-01-25] MEDS ORDERED: MAGNESIUM SULFATE 2 GM/50 ML 50 ML IVPB ONE (10:00)
[2019-01-25] MEDS: COLLAGENASE 5 GM (UD JAR) TOP SCH (10:30)
[2019-01-25] MEDS: BALSAM PERU/CASTOR OIL 60 GM TUBE TOP SCH ×2 (10:35→20:47)
--- NOTE | 2019-01-25 13:55 | CONS ---
Assessment/Plan Assessment/Plan Hospital Course (Demo Recall) #Anemia -patient's initial Hg of 2.6 was likely secondary to GIB and perforated viscous. Stool ob at that time was negative. -need to rule out other contributing causes of anemia -check Vitamin b12 / folate -r/o thyroid dysfuction, check TSH -r/o monoclonal gammopathy, check spep -r/o hemolysis, check LDH, retic , haptoglobin -r/o iron deficiency: check iron panel, ferritin -check peripheral smear -check epo level to see if patient would benefit from procrit #Sepsis -continue antibiotics #Perforated viscous -continue conservative management per surgery #JACKIE -renal following -Creatnine improving Consultation Date/Type/Reason Admit Date/Time Jan 16, 2019 at 23:33 Date of Consultation: Jan 25, 2019 Type of Consult hematology Reason for Consultation anemia Requesting Provider: SONAL ALBERT MD Date/Time of Note DATE: 01/25/19 TIME: 13:24 Hx of Present Illness Ms Kauffman is a 58 yo female with history of debility from back injury whose in patient history is as follows: 01/16/19 pt admitted to [facility] for septic shock secondary to pneumoperitoneum and urosepsis. Pt was found to have a severe macrocytic anemia on admission with a HG 2.6. Blood Cultures were positive for coag negative staph and she was treated with broad spectrum antibiotics. Pt was eventually treated conservatively for her bowl perforation and has since been transferred out of the ICU and is stable on the med surg floor. We have been consulted for further workup of her anemia. Since her massive transfusions, last given on 01/20, her Hg s have steadily been rising. Constitutional: no complaints Eyes: no complaints ENT: no complaints Respiratory: no complaints, shortness of breath Cardiovascular: no complaints Gastrointestinal: decreased appetite Genitourinary: no complaints Musculoskeletal: bone/joint pain Neurologic: no complaints Endocrine: no complaints Lymphatic: no complaints Past Medical History Medical History: diabetes (Possible), renal disease, urinary tract infection Home Meds Reported Medications Gabapentin* (Gabapentin*) 100 Mg Capsule, 100 MG PO TID, #90 CAP 01/20/18 Medications Current Medications Vancomycin HCl (Vanco Iv Per Pharmacy) VANCOMYCIN PER PHARMACY PER PROTOCOL XX ; Start 01/16/19 at 23:30 Albuterol (Ventolin Hfa) 4 puff Q2H RESP THERAPY PRN INH SHORTNESS OF BREATH; Start 01/17/19 at 00:00 Ipratropium [place] (Atrovent Hfa) 4 puff Q2H RESP THERAPY PRN INH SHORTNESS OF BREATH; Start 01/17/19 at 00:00 Acetaminophen (Tylenol Liquid) 650 mg Q6H PRN PO PAIN LEVEL 1-3 OR FEVER; Start 01/17/19 at 00:00 Miscellaneous Information 1 ea NOTE XX ; Start 01/17/19 at 11:00 Glucose (Glutose) 15 gm Q15M PRN PO DECREASED GLUCOSE; Start 01/17/19 at 11:00 Glucose (Glutose) 22.5 gm Q15M PRN PO DECREASED GLUCOSE; Start 01/17/19 at 11:00 Dextrose (D50w Syringe) 25 ml Q15M PRN IV DECREASED GLUCOSE; Start 01/17/19 at 11:00 Dextrose (D50w Syringe) 50 ml Q15M PRN IV DECREASED GLUCOSE; Start 01/17/19 at 11:00 Glucagon (Glucagen) 1 mg Q15M PRN IM DECREASED GLUCOSE; Start 01/17/19 at 11:00 Glucose (Glutose) 15 gm Q15M PRN BUCCAL DECREASED GLUCOSE; Start 01/17/19 at 1 1:00 Famotidine (Pepcid Iv) 20 mg DAILY IV Last administered on 01/25/19at 08:23; Admin Dose 20 MG; Start 01/18/19 at 09:00 Collagenase (Santyl) 1 applic DAILY TOP Last administered on 01/25/19at 10:30; Admin Dose 1 APPLIC; Start 01/17/19 at 17:00 Morphine Sulfate (morphine) 1 mg Q3H PRN IV SEVERE PAIN LEVEL 7-10 Last administered on 01/23/19at 12:54; Admin Dose 1 MG; Start 01/18/19 at 19:00 Piperacillin Sod/ Tazobactam Sod 100 ml @ 200 mls/hr Q6 IVPB Last administered on 01/25/19at 12:12; Admin Dose 200 MLS/HR; Start 01/21/19 at 12:00 Carvedilol (Coreg) 3.125 mg BID PO Last administered on 01/25/19at 08:23; Admin Dose 3.125 MG; Start 01/21/19 at 09:00 Hydralazine HCl (Apresoline) 10 mg Q4H PRN IV SBP >170 Last administered on 01/24/19at 01:17; Admin Dose 10 MG; Start 01/21/19 at 14:30 Vancomycin HCl 250 ml @ 125 mls/hr Q24H IVPB Last administered on 01/24/19at 16:27; Admin Dose 125 MLS/HR; Start 01/22/19 at 16:00 Potassium Chloride 40 meq/ Dextrose 1,020 ml @ 50 mls/hr [id number] IV Last a dministered on 01/25/19at 03:46; Admin Dose 50 MLS/HR; Start 01/23/19 at 10:00 Acetaminophen/ Hydrocodone Bitart ([place] (5/325)) 1 tab Q4H PRN PO MODERATE PAIN LEVEL 4-6 Last administered on 01/25/19at 08:22; Admin Dose 1 TAB; Start 01/24/19 at 17:00 Lorazepam (Ativan) 0.5 mg Q6H PRN IV ANXIETY Last administered on 01/25/19at 10:19; Admin Dose 0.5 MG; Start 01/24/19 at 21:00 Miscellaneous Information (*Rx Drug Level Order Reminder*) 1 ONCE ONCE XX ; Start 01/25/19 at 15:00; Stop 01/25/19 at 15:01 Insulin Aspart (Novolog Insulin Pen) NOVOLOG *MILD* ALGORI... AC MEALS AND BEDTIME SC ; Start 01/25/19 at 17:35 Allergies: Coded Allergies: Penicillins (Verified Allergy, Unknown, 01/20/18) Past Surgical History Past Surgical Hx: no surgical history Family History Significant Family History: no pertinent family hx Social History Alcohol Use: other (Previous heavy alcohol use as per the sister) Smoking Status: Unknown if ever smoked Drug Use: none Exam/Review of Systems Exam Vitals Vital Signs Date Temp Pulse Resp B/P (MAP) Pulse Ox O2 O2 Flow FiO2 Time Delivery Rate 01/25/19 98.2 86 17 176/90 99 08:00 (118) 01/22/19 Room Air 17:03 01/21/19 2.0 08:00 Intake and Output 01/24/19 01/24/19 01/25/19 1515:00 23:00 07:00 IntakeIntake Total 300 ml 2820 ml 835 ml OutputOutput Total 2000 ml BalanceBalance 300 ml 820 ml 835 ml Constitutional: alert, oriented Psych: no complaints, anxiety Head: normocephalic Eyes: nl conjunctiva ENMT: nl external ears & nose Neck: supple Respiratory: clear to auscultation Cardiovascular: regular rate and rhythm Gastrointestinal: soft Musculoskeletal: nl extremities to inspection Extremities: normal pulses Results Result Diagram: 01/25/19 0513 01/25/19 0513 Results 24hrs Laboratory Tests Test 01/24/19 15:02 01/24/19 18:44 01/25/19 00:01 01/25/19 05:13 Sodium Level 136 137 Potassium Level 3.4 L 3.1 L Chloride Level 113 H 112 H Carbon Dioxide Level 15 L 15 L Anion Gap 8 10 Blood Urea Nitrogen 12 10 Creatinine 0.94 0.97 Est Glomerular Filtrat > 60 59 L Rate mL/min Glucose Level 102 99 Calcium Level 8.0 L 8.2 L Bedside Glucose 133 108 White Blood Count 8.1 # Red Blood Count 3.45 #L Hemoglobin 10.0 #L Hematocrit 30.3 #L Mean Corpuscular Volume 87.8 Mean Corpuscular 29.0 Hemoglobin Mean Corpuscular 33.0 Hemoglobin Concent Red Cell Distribution 15.9 H Width Platelet Count 231 Mean Platelet Volume 9.8 Immature Granulocytes % 1.000 H Neutrophils % 70.7 Lymphocytes % 16.5 Monocytes % 7.8 Eosinophils % 3.5 Basophils % 0.5 Nucleated Red Blood 0.0 Cells % Immature Granulocytes # 0.080 H Neutrophils # 5.7 Lymphocytes # 1.3 Monocytes # 0.6 Eosinophils # 0.3 Basophils # 0.0 Nucleated Red Blood 0.0 Cells # Erythrocyte 23 Sedimentation Rate Phosphorus Level 2.9 Magnesium Level 1.6 L Test 01/25/19 06:01 01/25/19 11:49 Bedside Glucose 134 127 Medications Medication Current Medications Vancomycin HCl (Vanco Iv Per Pharmacy) VANCOMYCIN PER PHARMACY PER PROTOCOL XX ; Start 01/16/19 at 23:30 Albuterol (Ventolin Hfa) 4 puff Q2H RESP THERAPY PRN INH SHORTNESS OF BREATH; Start 01/17/19 at 00:00 Ipratropium [place] (Atrovent Hfa) 4 puff Q2H RESP THERAPY PRN INH SHORTNESS OF BREATH; Start 01/17/19 at 00:00 Acetaminophen (Tylenol Liquid) 650 mg Q6H PRN PO PAIN LEVEL 1-3 OR FEVER; Start 01/17/19 at 00:00 Miscellaneous Information 1 ea NOTE XX ; Start 01/17/19 at 11:00 Glucose (Glutose) 15 gm Q15M PRN PO DECREASED GLUCOSE; Start 01/17/19 at 11:00 Glucose (Glutose) 22.5 gm Q15M PRN PO DECREASED GLUCOSE; Start 01/17/19 at 11:00 Dextrose (D50w Syringe) 25 ml Q15M PRN IV DECREASED GLUCOSE; Start 01/17/19 at 11:00 Dextrose (D50w Syringe) 50 ml Q15M PRN IV DECREASED GLUCOSE; Start 01/17/19 at 11:00 Glucagon (Glucagen) 1 mg Q15M PRN IM DECREASED GLUCOSE; Start 01/17/19 at 11:00 Glucose (Glutose) 15 gm Q15M PRN BUCCAL DECREASED GLUCOSE; Start 01/17/19 at 11:00 Famotidine (Pepcid Iv) 20 mg DAILY IV Last administered on 01/25/19 08:23; A dmin Dose 20 MG; Start 01/18/19 at 09:00 Collagenase (Santyl) 1 applic DAILY TOP Last administered on 01/25/19 10:30; Admin Dose 1 APPLIC; Start 01/17/19 at 17:00 Morphine Sulfate (morphine) 1 mg Q3H PRN IV SEVERE PAIN LEVEL 7-10 Last administered on 01/23/19 12:54; Admin Dose 1 MG; Start 01/18/19 at 19:00 Piperacillin Sod/ Tazobactam Sod 100 ml @ 200 mls/hr Q6 IVPB Last administered on 01/25/19 12:12; Admin Dose 200 MLS/HR; Start 01/21/19 at 12:00 Carvedilol (Coreg) 3.125 mg BID PO Last administered on 01/25/19 08:23; Admin Dose 3.125 MG; Start 01/21/19 at 09:00 Hydralazine HCl (Apresoline) 10 mg Q4H PRN IV SBP >170 Last administered on 01/24/19 01:17; Admin Dose 10 MG; Start 01/21/19 at 14:30 Vancomycin HCl 250 ml @ 125 mls/hr Q24H IVPB Last administered on 4/1/19at 16:27; Admin Dose 125 MLS/HR; Start 01/22/19 at 16:00 Potassium Chloride 40 meq/ Dextrose 1,020 ml @ 50 mls/hr [id number] IV Last administered on 01/25/19at 03:46; Admin Dose 50 MLS/HR; Start 01/23/19 at 10:00 Acetaminophen/ Hydrocodone Bitart ([place] (5/325)) 1 tab Q4H PRN PO MODERATE PAIN LEVEL 4-6 Last administered on 01/25/19at 08:22; Admin Dose 1 TAB; Start 01/24/19 at 17:00 Lorazepam (Ativan) 0.5 mg Q6H PRN IV ANXIETY Last administered on 01/25/19at 10:19; Admin Dose 0.5 MG; Start 01/24/19 at 21:00 Miscellaneous Information (*Rx Drug Level Order Reminder*) 1 ONCE ONCE XX ; Start 01/25/19 at 15:00; Stop 01/25/19 at 15:01 Insulin Aspart (Novolog Insulin Pen) NOVOLOG *MILD* ALGORI... AC MEALS AND BEDTIME SC ; Start 01/25/19 at 17:35 RAJI DIXON M.D. Jan 25, 2019 13:34
[2019-01-25] MEDS: hydrALAzine 20 MG INJ IV PRN (14:04)
[2019-01-25 14:10] VITALS: BP 184/87; PULSE 86; RESP 17
[2019-01-25 15:10] VITALS: BP 145/79; PULSE 84
[2019-01-25] MEDS: VANCOMYCIN 1 GM 250 ML IVPB SCH (16:22)
--- NOTE | 2019-01-25 17:01 | PN ---
Date/Time of Note Date/Time of Note DATE: 01/25/19 TIME: 17:00 Assessment/Plan VTE Prophylaxis Risk score (from Ns)>0 risk: 7 SCD applied (from Ns): Yes Pharmacological prophylaxis: heparin Lines/Catheters IV Catheter Type (from Nrsg): Central Line Central line still needed: Yes Urinary Cath still in place: Yes Reason Cath still needed: urinary retention Assessment/Plan Hospital Course 1. Septic shock: Secondary to pneumoperitoneum, UTI, infected wound versus etiology-resolving Culture growing E. coli, blood culture growing gram-negative rods, wound cultures noted Continue broad-spectrum antibiotics of vancomycin and Zosyn Off pressors ID consultation appreciated CT abdomen does show pneumoperitoneum compatible with a perforated hollow viscus, etiology is uncertain, abnormal urinary bladder with possible emphysema tous cystitis and possible fistula with, Abscess anterior to the bladder is also possible Surgery consultation appreciated, plan is for repeat CT abdomen with p.o. and IV contrast to assess for perforation, patient removed NG tube yesterday and contrast was unable to be given but will be given orally if passes swallow eval Patient was refusing CT abdomen but is now open to doing it Have started clears Urology consultation appreciated 2. Acute respiratory failure secondary to above Patient extubated 3. Hypokalemia Replete 4. Macrocytic anemia secondary to elevated reticulocyte count Status post 4 units of packed red blood cells 5. Severe leukocytosis-improved 6. Thrombocytosis-resolved Monitor 7. Acute kidney injury secondary to severe septic shock-improving Continue IV fluids Nephrology consultation appreciated 8. Non-STEMI likely type II secondary to severe sepsis Cardiac consultation appreciated 9. Coagulopathy secondary to DIC 10. Hypernatremia D5W 7. Debility secondary history of back surgery and comorbidities Patient has multiple skin wounds, continue wound care Patient may require nursing placement upon DC Prophylaxis: SCDs, Protonix Result Diagram: 01/25/1951201/25/19512 Results 24hrs Laboratory Tests Test 01/24/19 18:44 01/25/19 00:01 01/25/19 05:13 01/25/19 06:01 Bedside Glucose 133 108 134 White Blood Count 8.1 # Red Blood Count 3.45 #L Hemoglobin 10.0 #L Hematocrit 30.3 #L Mean Corpuscular Volume 87.8 Mean Corpuscular 29.0 Hemoglobin Mean Corpuscular 33.0 Hemoglobin Concent Red Cell Distribution 15.9 H Width Platelet Count 231 Mean Platelet Volume 9.8 Immature Granulocytes % 1.000 H Neutrophils % 70.7 Lymphocytes % 16.5 Monocytes % 7.8 Eosinophils % 3.5 Basophils % 0.5 Nucleated Red Blood 0.0 Cells % Immature Granulocytes # 0.080 H Neutrophils # 5.7 Lymphocytes # 1.3 Monocytes # 0.6 Eosinophils # 0.3 Basophils # 0.0 Nucleated Red Blood 0.0 Cells # Erythrocyte 23 Sedimentation Rate Sodium Level 137 Potassium Level 3.1 L Chloride Level 112 H Carbon Dioxide Level 15 L Anion Gap 10 Blood Urea Nitrogen 10 Creatinine 0.97 Est Glomerular Filtrat 59 L Rate mL/min Glucose Level 99 Calcium Level 8.2 L Phosphorus Level 2.9 Magnesium Level 1.6 L Test 01/25/19 11:49 01/25/19 14:20 01/25/19 14:21 Bedside Glucose 127 Absolute Reticulocyte 0.117 H Count Percent Reticulocyte 3.4 H Count Iron Level 14 L Total Iron Binding 198 L Capacity Percent Iron Saturation 7 L Ferritin 202.0 Lactate Dehydrogenase 634 H Vitamin B12 Level 939 H Folate 3.8 Thyroid Stimulating 9.910 H Hormone (TSH) Vancomycin Level Trough 17.2 Subjective 24 Hr Interval Summary Free Text/Dictation More alert today Denies complaints Exam/Review of Systems Exam Vitals Vital Signs Date Temp Pulse Resp B/P (MAP) Pulse Ox O2 O2 Flow FiO2 Time Delivery Rate 01/25/19 97.9 86 17 184/87 98 14:10 (119) 01/22/19 Room Air 17:03 01/21/19 2.0 08:00 Intake and Output 01/24/19 01/24/19 01/25/19 1515:00 23:00 07:00 IntakeIntake Total 300 ml 2820 ml 835 ml OutputOutput Total 2000 ml BalanceBalance 300 ml 820 ml 835 ml Constitutional: alert, oriented, well developed Psych: no complaints, nl mood/affect Head: normocephalic, atraumatic Eyes: nl conjunctiva, EOMI, nl lids, nl sclera, PERRL ENMT: nl external ears & nose, nl lips & teeth, nl nasal mucosa & septum Neck: supple, non-tender Respiratory: clear to auscultation, normal air movement Cardiovascular: regular rate and rhythm, nl pulses Gastrointestinal: soft, nl liver, spleen, non-tender Musculoskeletal: nl extremities to inspection, nl gait and stance Extremities: normal pulses Neurological: MANUSCRIPT EDITOR II-XII intact, nl mental status, nl speech, nl strength Skin: nl turgor; No rash or lesions Lymph: nl lymph nodes Results Results 24hrs Laboratory Tests Test 01/24/19 18:44 01/25/19 00:01 01/25/19 05:13 01/25/19 06:01 Bedside Glucose 133 108 134 White Blood Count 8.1 # Red Blood Count 3.45 #L Hemoglobin 10.0 #L Hematocrit 30.3 #L Mean Corpuscular Volume 87.8 Mean Corpuscular 29.0 Hemoglobin Mean Corpuscular 33.0 Hemoglobin Concent Red Cell Distribution 15.9 H Width Platelet Count 231 Mean Platelet Volume 9.8 Immature Granulocytes % 1.000 H Neutrophils % 70.7 Lymphocytes % 16.5 Monocytes % 7.8 Eosinophils % 3.5 Basophils % 0.5 Nucleated Red Blood 0.0 Cells % Immature Granulocytes # 0.080 H Neutrophils # 5.7 Lymphocytes # 1.3 Monocytes # 0.6 Eosinophils # 0.3 Basophils # 0.0 Nucleated Red Blood 0.0 Cells # Erythrocyte 23 Sedimentation Rate Sodium Level 137 Potassium Level 3.1 L Chloride Level 112 H Carbon Dioxide Level 15 L Anion Gap 10 Blood Urea Nitrogen 10 Creatinine 0.97 Est Glomerular Filtrat 59 L Rate mL/min Glucose Level 99 Calcium Level 8.2 L Phosphorus Level 2.9 Magnesium Level 1.6 L Test 01/25/19 11:49 01/25/19 14:20 01/25/19 14:21 Bedside Glucose 127 Absolute Reticulocyte 0.117 H Count Percent Reticulocyte 3.4 H Count Iron Level 14 L Total Iron Binding 198 L Capacity Percent Iron Saturation 7 L Ferritin 202.0 Lactate Dehydrogenase 634 H Vitamin B12 Level 939 H Folate 3.8 Thyroid Stimulating 9.910 H Hormone (TSH) Vancomycin Level Trough 17.2 Medications Medication Current Medications Vancomycin HCl (Vanco Iv Per Pharmacy) VANCOMYCIN PER PHARMACY PER PROTOCOL XX ; Start 01/16/19 at 23:30 Albuterol (Ventolin Hfa) 4 puff Q2H RESP THERAPY PRN INH SHORTNESS OF BREATH; Start 01/17/19 at 00:00 Ipratropium [place] (Atrovent Hfa) 4 puff Q2H RESP THERAPY PRN INH SHORTNESS OF BREATH; Start 01/17/19 at 00:00 Acetaminophen (Tylenol Liquid) 650 mg Q6H PRN PO PAIN LEVEL 1-3 OR FEVER; Start 01/17/19 at 00:00 Miscellaneous Information 1 ea NOTE XX ; Start 01/17/19 at 11:00 Glucose (Glutose) 15 gm Q15M PRN PO DECREASED GLUCOSE; Start 01/17/19 at 11:00 Glucose (Glutose) 22.5 gm Q15M PRN PO DECREASED GLUCOSE; Start 01/17/19 at 11:00 Dextrose (D50w Syringe) 25 ml Q15M PRN IV DECREASED GLUCOSE; Start 01/17/19 at 11:00 Dextrose (D50w Syringe) 50 ml Q15M PRN IV DECREASED GLUCOSE; Start 01/17/19 at 11:00 Glucagon (Glucagen) 1 mg Q15M PRN IM DECREASED GLUCOSE; Start 01/17/19 at 11:00 Glucose (Glutose) 15 gm Q15M PRN BUCCAL DECREASED GLUCOSE; Start 01/17/19 at 11:00 Famotidine (Pepcid Iv) 20 mg DAILY IV Last administered on 01/25/19 08:23; Admin Dose 20 MG; Start 01/18/19 at 09:00 Collagenase (Santyl) 1 applic DAILY TOP Last administered on 01/25/19 10:30; Admin Dose 1 APPLIC; Start 01/17/19 at 17:00 Morphine Sulfate (morphine) 1 mg Q3H PRN IV SEVERE PAIN LEVEL 7-10 Last administered on 01/23/19at 12:54; Admin Dose 1 MG; Start 01/18/19 at 19:00 Piperacillin Sod/ Tazobactam Sod 100 ml @ 200 mls/hr Q6 IVPB Last administered on 01/25/19 12:12; Admin Dose 200 MLS/HR; Start 01/21/19 at 12:00 Carvedilol (Coreg) 3.125 mg BID PO Last administered on 01/25/19 08:23; Admin Dose 3.125 MG; Start 01/21/19 at 09:00 Hydralazine HCl (Apresoline) 10 mg Q4H PRN IV SBP >170 Last administered on 01/25/19at 14:04; Admin Dose 10 MG; Start 01/21/19 at 14:30 Vancomycin HCl 250 ml @ 125 mls/hr Q24H IVPB Last administered on 01/25/19 16:22; Admin Dose 125 MLS/HR; Start 01/22/19 at 16:00 Potassium Chloride 40 meq/ Dextrose 1,020 ml @ 50 mls/hr [id number] IV Last administered on 01/25/19 03:46; Admin Dose 50 MLS/HR; Start 01/23/19 at 10:00 Acetaminophen/ Hydrocodone Bitart ([place] (5/325)) 1 tab Q4H PRN PO MODERATE PAIN LEVEL 4-6 Last administered on 01/25/19 08:22; Admin Dose 1 TAB; Start 01/24/19 at 17:00 Lorazepam (Ativan) 0.5 mg Q6H PRN IV ANXIETY Last administered on 01/25/19at 16:22; Admin Dose 0.5 MG; Start 01/24/19 at 21:00 Insulin Aspart (Novolog Insulin Pen) NOVOLOG *MILD* ALGORI... AC MEALS AND BEDTIME SC ; Start 01/25/19 at 17:35 SONAL ALBERT MD Jan 25, 2019 17:01
[2019-01-25 20:59] VITALS: BP 164/90; PULSE 93; RESP 18
[2019-01-26] MEDS: PIPER-TAZO 3.375 GM IV (PMX) 100 ML IVPB SCH ×5 (00:18→23:43)
[2019-01-26 02:06] VITALS: BP 165/87; PULSE 89
--- NOTE | 2019-01-26 05:47 | PN ---
Date/Time of Note Date/Time of Note DATE: 01/26/19 TIME: 05:45 Assessment/Plan Lines/Catheters IV Catheter Type (from Rust): Central Line Valadez in Place (from Rust): Yes Assessment/Plan Chief Complaint/Hosp Course 1. Pneumoperitoneum with probable perforated viscus. Previously family did not consent to proceeding to surgery. She has significantly improved. Extubated. Repeat CT without bowel perforation or leak rather ? bladder perforation, ? cholangitis. 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 UTI: 11/27 #2 -abx per sensitivity -frequent bladder emptying/cath care 4. Hypochromic anemia: Status post PRBC transfusion, H&H stable -Monitor and transfuse as needed 5. Sepsis, leukocytosis: improved -Supportive (antibiotics, fluids,etc) -As above 6. Electrolyte imbalance: -Optimize electrolytes 7. JACKIE: improved -Limit nephrotoxic meds -Renally dose meds -Per renal 8. Thrombocytopenia mild, -Monitor 9. Transaminitis: Likely 11/27 #5 -Trend 10. NSTEMI: -Cardiac optimization per cards Thank you, Subjective 24 Hr Interval Summary No pain. Bowel function. CT noted. No fevers, chills, sob, congested cough, cp, palpitations, keita, dizziness, nausea, vomiting, diarrhea, dysuria. Exam/Review of Systems Vital Signs Vitals Vital Signs Date Temp Pulse Resp B/P (MAP) Pulse Ox O2 O2 Flow FiO2 Time Delivery Rate 01/26/19 97.9 89 165/87 97 02:06 (113) 01/25/19 18 20:59 01/22/19 Room Air 17:03 Intake and Output 01/25/19 01/25/19 01/26/19 1515:00 23:00 07:00 IntakeIntake Total 150 ml 1350 ml 755 ml OutputOutput Total 1400 ml 1000 ml BalanceBalance 150 ml -50 ml -245 ml Exam Free Text/Dictation Constitutional: NAD, well developed; Psych: nl mood/affect, anxiety (Minimal) Head: normocephalic, atraumatic Eyes: nl conjunctiva, EOMI, nl lids, nl sclera ENMT: nl external ears & nose, no nl lips & teeth (poor dentition), mucosa pink and moist Neck: supple, non-tender; No jvd Respiratory: normal air movement; No congested cough, No labored breathing Cardiovascular: regular rate and rhythm, nl pulses; No edema Gastrointestinal: soft, distended (improved-moderate), min tender, no rebound Genitourinary - Female: nl external genitalia Musculoskeletal: nl extremities to inspection, nl gait and stance Extremities: normal pulses Neurological: nl speech, no normal strength (generalized weakness) Skin: No rash or lesions Lymph: nl lymph nodes Results Result Diagram: 01/25/19 0513 01/25/19 0513 ALEK HANDLEY MD Jan 26, 2019 05:47
[2019-01-26] MEDS: INSULIN ASPART [NOVOLOG] 3 ML PEN SC SCH ×4 (07:30→21:00)
--- NOTE | 2019-01-26 07:44 | CONS ---
Assessment/Plan Assessment/Plan Hospital Course (Demo Recall) 1) pneumoperitoneum and sepsis could be related to pt taking motrin for some pain continue with vanco/zosyn at present to renally dose them await decision by family regarding surgery vs hospice 01/18 - continue with vanco/zosyn CoNS in blood, only one bottle, likely represents contamination e.coli in urine is sensitive to the zosyn pt has EtOH abuse lactic acid has normalized 01/19 - MRSA in nasal area, likely perf is gastric or duodenal to continue with vanco at present and zosyn decrease in platelets noted, may need to change vanco if trend continues 01/20 - no significant change a.m. labs are pending due to blood tx overnight on vanco/zosyn pt has GNR in blood cx, ID is pending but sensitive to zosyn 01/21 - increase dose of zosyn as renal function is further improved awaits CT abd/pelv repeat to see if pt can start to eat alcaligenes was also in blood cx and is a stool bacteria 01/22 - pt passed swallow eval for oral contrast, but CT is still pending continue with vanco/zosyn at present 01/24 - await CT results, pt has tolerated clear liquids though on vanco/zosyn to continue at present pt will need zosyn thru 01/29/19 at least (pt will need eval for possible L hip osteo and if present will need a longer course of the zosyn when pt on full orals will change vanco to doxycycline 01/26 - continue with zosyn, change vanco to doxycycline 2)severe anemia pt is being transfused only smears of stool since admission to get hemoccult 01/18 - Hgb is more stable 01/19 - drop in Hgb again, will need blood tx again 01/20 - pt tx again, a.m. labs are pending 01/21 - Hgb is at 9 now 01/22 - Hgb is stable 3) ARF with pyuria and hematuria (e.coli in urine) improving with hydration and blood tx await urine cx results 01/18 - improving urine output and creatinine urine cx has e.coli that is sensitive to zosyn renal u/s suggests hydro on the R and possible renal clot or debris on L 01/19 - further improvement in creatinine on zosyn for e.coli in urine 01/21 - further improvement in renal function 01/22 - creatinine almost normal 01/24 - creatinine has normalized while on vanco 4) elevated troponins likely due to stress from severe anemia 5) hepatitis again likely due to sepsis and severe anemia check hep serologies 01/18 - hep serologies are pending 01/19 - neg hep serologies and HIV LFT's are trending down 6) L hip eschar/decubitus unstageable wound cx was ordered 01/18 - wound cx has not been done, nurse was informed 01/19 - wound cx was obtained and is pending 01/20 - wound cx has GPC growing 01/21 - MRSA in wound cx from hip, continue with vanco at present platelets are improving 01/22 - MRSA and alcaligenes was in wound cx ESR is extremely high, pt will likely need MRI of L hip area to see if osteomyelitis is present when pt is more stable 01/24 - when pt is eating will order MRI of L hip to see if osteo is present (pt has deep ulcer there and very high ESR) continue vanco/zosyn at present 01/26 - I will order MRI with contrast to L hip area on zosyn/doxy now 7) hypoalbuminemia pt came in with low albumin, she has likely been sick or not eating well for a while 8) CoNS bacteremia 01/18 - only one bottle has CoNS, likely this is contamination continue with vanco at present, await final wound cx results 9) decrease in platelets 01/19 - consider change of vanco if trend continues 01/20 - her MRSA is sensitive to doxy so could change vanco to that 01/21 - platelets are improved 01/22 - platelets are WNL 10) GNR in original blood cx (alcaligenes faecalis) 01/20 - ID is pending but it is sensitive to zosyn 01/21 - alcaligenes is a stool bacteria and likely related to her peritonitis continue with zosyn 01/22 - alcaligines was also in wound cx when pt is eating and more stable will order MRI of L hip to verify no osteo or abscess is present 01/24 - pt will need at least zosyn thru 01/29, longer if osteo of L hip is present Consultation Date/Type/Reason Admit Date/Time Jan 16, 2019 at 23:33 Initial Consult Date 01/17/19 Type of Consult ID Requesting Provider: SONAL ALBERT MD Date/Time of Note DATE: 01/26/19 TIME: 07:37 24 HR Interval Summary Free Text/Dictation pt states she has a constant stomach ache because it feels full since her CT of abd was done no increase in abd discomfort when she takes in full liquids no V, D she is having BM's breathing is ok she wants something to relax the abd like she got yesterday (ativan?) Exam/Review of Systems Exam Vitals Vital Signs Date Temp Pulse Resp B/P (MAP) Pulse Ox O2 O2 Flow FiO2 Time Delivery Rate 01/26/19 97.9 89 165/87 97 02:06 (113) 01/25/19 18 20:59 01/22/19 Room Air 17:03 Intake and Output 01/25/19 01/25/19 01/26/19 1515:00 23:00 07:00 IntakeIntake Total 150 ml 1350 ml 1255 ml OutputOutput Total 1400 ml 3200 ml BalanceBalance 150 ml -50 ml -1945 ml Constitutional: alert Eyes: nl sclera ENMT: mucosa pink and moist Respiratory: clear to auscultation Cardiovascular: regular rate and rhythm Gastrointestinal: soft, non-tender, distended Results Result Diagram: 01/26/19 0529 01/26/19 0529 Results 24hrs Laboratory Tests Test 01/25/19 11:49 01/25/19 14:20 01/25/19 14:21 01/25/19 17:13 Bedside Glucose 127 157 Absolute Reticulocyte 0.117 H Count Percent Reticulocyte 3.4 H Count Haptoglobin Pending Iron Level 14 L Total Iron Binding 198 L Capacity Percent Iron Saturation 7 L Total Protein (PEP) 5.2 L Albumin (PEP) Pending Twqvi-2-Fkucnjafa Pending Hjbiy-2-Tqqexjoco Pending Beta Globulins Pending Gamma Globulins Pending Protein Pending Electrophoresis Interpre t Ferritin 202.0 Lactate Dehydrogenase 634 H Vitamin B12 Level 939 H Folate 3.8 Thyroid Stimulating 9.910 H Hormone (TSH) Vancomycin Level Trough 17.2 Test 01/25/19 20:50 01/26/19 05:29 Bedside Glucose 108 White Blood Count 8.4 Red Blood Count 3.28 L Hemoglobin 9.5 L Hematocrit 29.2 L Mean Corpuscular Volume 89.0 Mean Corpuscular 29.0 Hemoglobin Mean Corpuscular 32.5 Hemoglobin Concent Red Cell Distribution 15.9 H Width Platelet Count 251 Mean Platelet Volume 10.1 Immature Granulocytes % 0.800 H Neutrophils % 68.4 Lymphocytes % 17.8 Monocytes % 7.8 Eosinophils % 4.6 Basophils % 0.6 Nucleated Red Blood 0.0 Cells % Immature Granulocytes # 0.070 H Neutrophils # 5.7 Lymphocytes # 1.5 Monocytes # 0.7 Eosinophils # 0.4 Basophils # 0.1 Nucleated Red Blood 0.0 Cells # Sodium Level 137 Potassium Level 3.4 L Chloride Level 111 H Carbon Dioxide Level 16 L Anion Gap 10 Blood Urea Nitrogen 8 Creatinine 0.93 Est Glomerular Filtrat > 60 Rate mL/min Glucose Level 79 Calcium Level 8.1 L Phosphorus Level 2.8 Magnesium Level 2.0 Medications Medication Current Medications Vancomycin HCl (Vanco Iv Per Pharmacy) VANCOMYCIN PER PHARMACY PER PROTOCOL XX ; Start 01/16/19 at 23:30 Albuterol (Ventolin Hfa) 4 puff Q2H RESP THERAPY PRN INH SHORTNESS OF BREATH; Start 01/17/19 at 00:00 Ipratropium [place] (Atrovent Hfa) 4 puff Q2H RESP THERAPY PRN INH SHORTNESS OF BREATH; Start 01/17/19 at 00:00 Acetaminophen (Tylenol Liquid) 650 mg Q6H PRN PO PAIN LEVEL 1-3 OR FEVER; Start 01/17/19 at 00:00 Miscellaneous Information 1 ea NOTE XX ; Start 01/17/19 at 11:00 Glucose (Glutose) 15 gm Q15M PRN PO DECREASED GLUCOSE; Start 01/17/19 at 11:00 Glucose (Glutose) 22.5 gm Q15M PRN PO DECREASED GLUCOSE; Start 01/17/19 at 11:00 Dextrose (D50w Syringe) 25 ml Q15M PRN IV DECREASED GLUCOSE; Start 01/17/19 at 11:00 Dextrose (D50w Syringe) 50 ml Q15M PRN IV DECREASED GLUCOSE; Start 01/17/19 at 11:00 Glucagon (Glucagen) 1 mg Q15M PRN IM DECREASED GLUCOSE; Start 01/17/19 at 11:00 Glucose (Glutose) 15 gm Q15M PRN BUCCAL DECREASED GLUCOSE; Start 01/17/19 at 11:00 Famotidine (Pepcid Iv) 20 mg DAILY IV Last administered on 01/25/19 08:23; Admin Dose 20 MG; Start 01/18/19 at 09:00 Collagenase (Santyl) 1 applic DAILY TOP Last administered on 01/25/19 10:30; Admin Dose 1 APPLIC; Start 01/17/19 at 17:00 Morphine Sulfate (morphine) 1 mg Q3H PRN IV SEVERE PAIN LEVEL 7-10 Last administered on 01/23/19 12:54; Admin Dose 1 MG; Start 01/18/19 at 19:00 Piperacillin Sod/ Tazobactam Sod 100 ml @ 200 mls/hr Q6 IVPB Last administered on 01/26/19 05:31; Admin Dose 200 MLS/HR; Start 01/21/19 at 12:00 Carvedilol (Coreg) 3.125 mg BID PO Last administered on 01/25/19 20:47; Admin Dose 3.125 MG; Start 01/21/19 at 09:00 Hydralazine HCl (Apresoline) 10 mg Q4H PRN IV SBP >170 Last administered on 01/25/19 14:04; Admin Dose 10 MG; Start 01/21/19 at 14:30 Vancomycin HCl 250 ml @ 125 mls/hr Q24H IVPB Last administered on 01/25/19 16:22; Admin Dose 125 MLS/HR; Start 01/22/19 at 16:00 Potassium Chloride 40 meq/ Dextrose 1,020 ml @ 50 mls/hr [id number] IV Last administered on 01/25/19 23:37; Admin Dose 50 MLS/HR; Start 01/23/19 at 10:00 Acetaminophen/ Hydrocodone Bitart ([place] (5/325)) 1 tab Q4H PRN PO MODERATE PAIN LEVEL 4-6 Last administered on 01/25/19 20:54; Admin Dose 1 TAB; Start 01/24/19 at 17:00 Lorazepam (Ativan) 0.5 mg Q6H PRN IV ANXIETY Last administered on 01/25/19 23:35; Admin Dose 0.5 MG; Start 01/24/19 at 21:00 Insulin Aspart (Novolog Insulin Pen) NOVOLOG *MILD* ALGORI... AC MEALS AND BEDTIME SC Last administered on 01/25/19at 17:17; Admin Dose 1 UNIT; Start 01/25/19 at 17:35 PATSY LEVY MD Jan 26, 2019 07:44
[2019-01-26 08:00] VITALS: BP 171/91; PULSE 88; RESP 19
[2019-01-26] MEDS ORDERED: POTASSIUM CHLORIDE (SR) 20 MEQ TAB PO STA (08:23)
--- NOTE | 2019-01-26 08:36 | PN ---
DATE: 01/26/2019 SUBJECTIVE: The patient is stable, no events overnight. No fevers, chills, nausea, or vomiting. OBJECTIVE: VITAL SIGNS: Blood pressure is 171/91, respirations 18, pulse 88, temperature 97.9. HEENT: Head is normocephalic. NECK: Supple. HEART: Regular rate. LUNGS: Show diminished breath sounds at the base. ABDOMEN: Soft, nontender to palpation without rebound or guarding. EXTREMITIES: Negative for clubbing, cyanosis, no edema. DERMATOLOGIC: No rashes. MUSCULOSKELETAL: No joint effusion. NEUROLOGIC: No change in exam. MEDICATIONS: Reviewed. LABORATORY DATA: Reviewed from 01/26/2019. ASSESSMENT AND PLAN: 1. Nonoliguric acute kidney injury with unknown baseline creatinine. Etiology of acute kidney injur y is secondary to acute tubular necrosis. The patient's renal function is improving. Continue [facility], [place] nt treatment plans, supportive care, renally dose all medicines. 2. Hypokalemia. Continue to monitor and replete. 3. Hypomagnesemia. Continue to monitor and replete. 4. Metabolic acidosis secondary to acute kidney injury, improving. 5. Sepsis, status post shock secondary pneumoperitoneum and urinary tract infection. Continue curre nt antibiotic regimen. 6. Respiratory failure. The patient is improving, status post extubation. 7. Perforated viscus. Continue to monitor. 8. Coronary artery disease. Continue medical management. 9. Encephalopathy, etiology is toxic metabolic. 10. Decubitus wound. Continue wound care. Dictated By: SHAW OLMSTEAD DO NR/NTS Conf#: [id number] DID#: [id number] CC: BLAISE MARTINS MD; RAFY HANDLEY DO; SONAL ALBERT MD;*EndCC*
[2019-01-26] MEDS: DOXYCYCLINE 100 MG TAB PO SCH ×2 (09:13→21:27)
[2019-01-26] MEDS: FAMOTIDINE 20 MG INJ IV SCH (09:13)
[2019-01-26] MEDS: LORAZEPAM 2 MG INJ IV PRN ×2 (09:15→23:43)
[2019-01-26] MEDS: BALSAM PERU/CASTOR OIL 60 GM TUBE TOP SCH (09:16)
[2019-01-26] MEDS: COLLAGENASE 5 GM (UD JAR) TOP SCH (09:16)
[2019-01-26] MEDS: SOD FERRIC GLUC COMPLX 125 MG in SOD CHLORIDE 0.9% 100 ML IVPB SCH (12:33)
[2019-01-26 14:20] VITALS: BP 147/81; PULSE 102; RESP 18
--- NOTE | 2019-01-26 14:20 | CONS ---
Assessment/Plan Assessment/Plan Hospital Course (Demo Recall) #Anemia -patient's initial Hg of 2.6 was likely secondary to GIB and perforated viscous. Stool ob at that time was negative. -anemia panel is consistent with iron deficiency -will start Ferrlecit 125 mg IV x 5 days #Sepsis -continue antibiotics #Perforated viscous -continue conservative management per surgery #JACKIE -renal following -Creatnine improving Consultation Date/Type/Reason Admit Date/Time Jan 16, 2019 at 23:33 Initial Consult Date 01/25/19 Type of Consult hematology Reason for Consultation anemia Requesting Provider: SONAL ALBERT MD Date/Time of Note DATE: 01/26/19 TIME: 14:19 24 HR Interval Summary Free Text/Dictation no acute overnight events Exam/Review of Systems Exam Vitals Vital Signs Date Temp Pulse Resp B/P (MAP) Pulse Ox O2 O2 Flow FiO2 Time Delivery Rate 01/26/19 97.9 88 19 171/91 98 Room Air 08:00 (117) Intake and Output 01/25/19 01/25/19 01/26/19 1515:00 23:00 07:00 IntakeIntake Total 150 ml 1350 ml 1255 ml OutputOutput Total 1400 ml 3200 ml BalanceBalance 150 ml -50 ml -1945 ml Constitutional: alert, oriented Psych: anxiety, depression Head: normocephalic Eyes: nl conjunctiva ENMT: nl external ears & nose Neck: supple Respiratory: clear to auscultation Cardiovascular: regular rate and rhythm Gastrointestinal: soft Musculoskeletal: nl extremities to inspection Extremities: normal pulses Results Result Diagram: 01/26/19 0529 01/26/19 0529 Results 24hrs Laboratory Tests Test 01/25/19 14:20 01/25/19 14:21 01/25/19 17:13 01/25/19 20:50 Absolute Reticulocyte 0.117 H Count Percent Reticulocyte 3.4 H Count Haptoglobin Pending Iron Level 14 L Total Iron Binding 198 L Capacity Percent Iron Saturation 7 L Total Protein (PEP) 5.2 L Albumin (PEP) Pending Dayoi-7-Ygtagmsar Pending Mfgxg-6-Iasibokur Pending Beta Globulins Pending Gamma Globulins Pending Protein Pending Electrophoresis Interpre t Ferritin 202.0 Lactate Dehydrogenase 634 H Vitamin B12 Level 939 H Folate 3.8 Thyroid Stimulating 9.910 H Hormone (TSH) Vancomycin Level Trough 17.2 Bedside Glucose 157 108 Test 01/26/19 05:29 01/26/19 09:13 01/26/19 12:14 White Blood Count 8.4 Red Blood Count 3.28 L Hemoglobin 9.5 L Hematocrit 29.2 L Mean Corpuscular Volume 89.0 Mean Corpuscular 29.0 Hemoglobin Mean Corpuscular 32.5 Hemoglobin Concent Red Cell Distribution 15.9 H Width Platelet Count 251 Mean Platelet Volume 10.1 Immature Granulocytes % 0.800 H Neutrophils % 68.4 Lymphocytes % 17.8 Monocytes % 7.8 Eosinophils % 4.6 Basophils % 0.6 Nucleated Red Blood 0.0 Cells % Immature Granulocytes # 0.070 H Neutrophils # 5.7 Lymphocytes # 1.5 Monocytes # 0.7 Eosinophils # 0.4 Basophils # 0.1 Nucleated Red Blood 0.0 Cells # Sodium Level 137 Potassium Level 3.4 L Chloride Level 111 H Carbon Dioxide Level 16 L Anion Gap 10 Blood Urea Nitrogen 8 Creatinine 0.93 Est Glomerular Filtrat > 60 Rate mL/min Glucose Level 79 Calcium Level 8.1 L Phosphorus Level 2.8 Magnesium Level 2.0 Bedside Glucose 128 108 Medications Medication Current Medications Albuterol (Ventolin Hfa) 4 puff Q2H RESP THERAPY PRN INH SHORTNESS OF BREATH; Start 01/17/19 at 00:00 Ipratropium [place] (Atrovent Hfa) 4 puff Q2H RESP THERAPY PRN INH SHORTNESS OF BREATH; Start 01/17/19 at 00:00 Acetaminophen (Tylenol Liquid) 650 mg Q6H PRN PO PAIN LEVEL 1-3 OR FEVER; Start 01/17/19 at 00:00 Miscellaneous Information 1 ea NOTE XX ; Start 01/17/19 at 11:00 Glucose (Glutose) 15 gm Q15M PRN PO DECREASED GLUCOSE; Start 01/17/19 at 11:00 Glucose (Glutose) 22.5 gm Q15M PRN PO DECREASED GLUCOSE; Start 01/17/19 at 11:00 Dextrose (D50w Syringe) 25 ml Q15M PRN IV DECREASED GLUCOSE; Start 01/17/19 at 11:00 Dextrose (D50w Syringe) 50 ml Q15M PRN IV DECREASED GLUCOSE; Start 01/17/19 at 11:00 Glucagon (Glucagen) 1 mg Q15M PRN IM DECREASED GLUCOSE; Start 01/17/19 at 11:00 Glucose (Glutose) 15 gm Q15M PRN BUCCAL DECREASED GLUCOSE; Start 01/17/19 at 11:00 Famotidine (Pepcid Iv) 20 mg DAILY IV Last administered on 01/26/19 09:13; Admin Dose 20 MG; Start 01/18/19 at 09:00 Collagenase (Santyl) 1 applic DAILY TOP Last administered on 01/26/19 09:16; Admin Dose 1 APPLIC; Start 01/17/19 at 17:00 Morphine Sulfate (morphine) 1 mg Q3H PRN IV SEVERE PAIN LEVEL 7-10 Last administered on 01/23/19 12:54; Admin Dose 1 MG; Start 01/18/19 at 19:00 Piperacillin Sod/ Tazobactam Sod 100 ml @ 200 mls/hr Q6 IVPB Last administered on 01/26/19 12:32; Admin Dose 200 MLS/HR; Start 01/21/19 at 12:00 Carvedilol (Coreg) 3.125 mg BID PO Last administered on 01/26/19 09:14; Admin Dose 3.125 MG; Start 01/21/19 at 09:00 Hydralazine HCl (Apresoline) 10 mg Q4H PRN IV SBP >170 Last administered on 01/25/19 14:04; Admin Dose 10 MG; Start 01/21/19 at 14:30 Acetaminophen/ Hydrocodone Bitart ([place] (5/325)) 1 tab Q4H PRN PO MODERATE PAIN LEVEL 4-6 Last administered on 01/25/19 20:54; Admin Dose 1 TAB; Start 01/24 at 17:00 Lorazepam (Ativan) 0.5 mg Q6H PRN IV ANXIETY Last administered on 01/26/19 09:15; Admin Dose 0.5 MG; Start 01/24/19 at 21:00 Insulin Aspart (Novolog Insulin Pen) NOVOLOG *MILD* ALGORI... AC MEALS AND BEDTIME SC Last administered on 01/25/19 17:17; Admin Dose 1 UNIT; Start 01/25/19 at 17:35 Doxycycline Hyclate (Vibramycin) 100 mg BID PO Last administered on 01/26/19 09:13; Admin Dose 100 MG; Start 4/3/19 at 09:00 Ferric Sodium Gluconate Complex 125 mg/Sodium Chloride 110 ml @ 110 mls/hr DAILY@1300 IVPB Last administered on 01/26/19at 12:33; Admin Dose 110 MLS/HR; Start 01/26/19 at 13:00; Stop 01/30/19 at 13:59 RAJI DIXON M.D. Jan 26, 2019 14:20
[2019-01-26] MEDS: HYDROCODONE/APAP (5/325) TAB PO PRN ×2 (15:09→21:27)
--- NOTE | 2019-01-26 17:25 | PN ---
Date/Time of Note Date/Time of Note DATE: 01/26/19 TIME: 17:23 Assessment/Plan VTE Prophylaxis Risk score (from Ns)>0 risk: 7 SCD applied (from Ns): Yes Pharmacological prophylaxis: heparin Lines/Catheters IV Catheter Type (from Nrsg): Central Line Central line still needed: Yes Urinary Cath still in place: Yes Reason Cath still needed: urinary retention Assessment/Plan Hospital Course Sepsis:- - Shock resolved, continue abx per ID Peforated viscus: - management per surgery Colovesicular fistula: - Per urology - Continue may Macrocytic anemia secondary to elevated reticulocyte count - Status post 4 units of packed red blood cells - stable Iron deficiency: - IV iron Acute kidney injury secondary to severe septic shock-improving - Renal function improved to baseline Debility secondary history of back surgery and comorbidities Patient has multiple skin wounds, continue wound care Patient may require nursing placement upon DC Prophylaxis: SCDs, Protonix Result Diagram: 01/26/19 0529 01/26/19 0529 Results 24hrs Laboratory Tests Test 01/25/19 20:50 01/26/19 05:29 01/26/19 09:13 01/26/19 12:14 Bedside Glucose 108 128 108 White Blood Count 8.4 Red Blood Count 3.28 L Hemoglobin 9.5 L Hematocrit 29.2 L Mean Corpuscular Volume 89.0 Mean Corpuscular 29.0 Hemoglobin Mean Corpuscular 32.5 Hemoglobin Concent Red Cell Distribution 15.9 H Width Platelet Count 251 Mean Platelet Volume 10.1 Immature Granulocytes % 0.800 H Neutrophils % 68.4 Lymphocytes % 17.8 Monocytes % 7.8 Eosinophils % 4.6 Basophils % 0.6 Nucleated Red Blood 0.0 Cells % Immature Granulocytes # 0.070 H Neutrophils # 5.7 Lymphocytes # 1.5 Monocytes # 0.7 Eosinophils # 0.4 Basophils # 0.1 Nucleated Red Blood 0.0 Cells # Sodium Level 137 Potassium Level 3.4 L Chloride Level 111 H Carbon Dioxide Level 16 L Anion Gap 10 Blood Urea Nitrogen 8 Creatinine 0.93 Est Glomerular Filtrat > 60 Rate mL/min Glucose Level 79 Calcium Level 8.1 L Phosphorus Level 2.8 Magnesium Level 2.0 Subjective 24 Hr Interval Summary Free Text/Dictation Comfortable, denies complaints Exam/Review of Systems Exam Vitals Vital Signs Date Temp Pulse Resp B/P (MAP) Pulse Ox O2 O2 Flow FiO2 Time Delivery Rate 01/26/19 97.9 88 19 171/91 98 Room Air 08:00 (117) Intake and Output 01/25/19 01/25/19 01/26/19 1515:00 23:00 07:00 IntakeIntake Total 150 ml 1350 ml 1305 ml OutputOutput Total 1400 ml 3200 ml BalanceBalance 150 ml -50 ml -1895 ml Constitutional: alert, oriented, well developed Psych: no complaints, nl mood/affect Head: normocephalic, atraumatic Eyes: nl conjunctiva, EOMI, nl lids, nl sclera, PERRL ENMT: nl external ears & nose, nl lips & teeth, nl nasal mucosa & septum Neck: supple, non-tender Respiratory: clear to auscultation, normal air movement Cardiovascular: regular rate and rhythm, nl pulses Gastrointestinal: soft, nl liver, spleen, non-tender Musculoskeletal: nl extremities to inspection, nl gait and stance Extremities: normal pulses Neurological: [employer] II-XII intact, nl mental status, nl speech, nl strength Skin: nl turgor; No rash or lesions Lymph: nl lymph nodes Results Results 24hrs Laboratory Tests Test 01/25/19 20:50 01/26/19 05:29 01/26/19 09:13 01/26/19 12:14 Bedside Glucose 108 128 108 White Blood Count 8.4 Red Blood Count 3.28 L Hemoglobin 9.5 L Hematocrit 29.2 L Mean Corpuscular Volume 89.0 Mean Corpuscular 29.0 Hemoglobin Mean Corpuscular 32.5 Hemoglobin Concent Red Cell Distribution 15.9 H Width Platelet Count 251 Mean Platelet Volume 10.1 Immature Granulocytes % 0.800 H Neutrophils % 68.4 Lymphocytes % 17.8 Monocytes % 7.8 Eosinophils % 4.6 Basophils % 0.6 Nucleated Red Blood 0.0 Cells % Immature Granulocytes # 0.070 H Neutrophils # 5.7 Lymphocytes # 1.5 Monocytes # 0.7 Eosinophils # 0.4 Basophils # 0.1 Nucleated Red Blood 0.0 Cells # Sodium Level 137 Potassium Level 3.4 L Chloride Level 111 H Carbon Dioxide Level 16 L Anion Gap 10 Blood Urea Nitrogen 8 Creatinine 0.93 Est Glomerular Filtrat > 60 Rate mL/min Glucose Level 79 Calcium Level 8.1 L Phosphorus Level 2.8 Magnesium Level 2.0 Medications Medication Current Medications Albuterol (Ventolin Hfa) 4 puff Q2H RESP THERAPY PRN INH SHORTNESS OF BREATH; Start 01/17/19 at 00:00 Ipratropium [place] (Atrovent Hfa) 4 puff Q2H RESP THERAPY PRN INH SHORTNESS OF BREATH; Start 01/17/19 at 00:00 Acetaminophen (Tylenol Liquid) 650 mg Q6H PRN PO PAIN LEVEL 1-3 OR FEVER; Start 01/17/19 at 00:00 Miscellaneous Information 1 ea NOTE XX ; Start 01/17/19 at 11:00 Glucose (Glutose) 15 gm Q15M PRN PO DECREASED GLUCOSE; Start 01/17/19 at 11:00 Glucose (Glutose) 22.5 gm Q15M PRN PO DECREASED GLUCOSE; Start 01/17/19 at 11:00 Dextrose (D50w Syringe) 25 ml Q15M PRN IV DECREASED GLUCOSE; Start 01/17/19 at 11:00 Dextrose (D50w Syringe) 50 ml Q15M PRN IV DECREASED GLUCOSE; Start 01/17/19 at 11:00 Glucagon (Glucagen) 1 mg Q15M PRN IM DECREASED GLUCOSE; Start 01/17/19 at 11:00 Glucose (Glutose) 15 gm Q15M PRN BUCCAL DECREASED GLUCOSE; Start 01/17/19 at 11:00 Famotidine (Pepcid Iv) 20 mg DAILY IV Last administered on 01/26/19 09:13; Admin Dose 20 MG; Start 01/18/19 at 09:00 Collagenase (Santyl) 1 applic DAILY TOP Last administered on 01/26/19 09:16; Admin Dose 1 APPLIC; Start 01/17/19 at 17:00 Morphine Sulfate (morphine) 1 mg Q3H PRN IV SEVERE PAIN LEVEL 7-10 Last administered on 01/23/19at 12:54; Admin Dose 1 MG; Start 01/18/19 at 19:00 Piperacillin Sod/ Tazobactam Sod 100 ml @ 200 mls/hr Q6 IVPB Last administered on 01/26/19 12:32; Admin Dose 200 MLS/HR; Start 01/21/19 at 12:00 Carvedilol (Coreg) 3.125 mg BID PO Last administered on 01/26/19 09:14; Admin Dose 3.125 MG; Start 01/21/19 at 09:00 Hydralazine HCl (Apresoline) 10 mg Q4H PRN IV SBP >170 Last administered on 01/25/19 14:04; Admin Dose 10 MG; Start 01/21/19 at 14:30 Acetaminophen/ Hydrocodone Bitart ([place] (5/325)) 1 tab Q4H PRN PO MODERATE PAIN LEVEL 4-6 Last administered on 01/26/19 15:09; Admin Dose 1 TAB; Start 01/24/19 at 17:00 Lorazepam (Ativan) 0.5 mg Q6H PRN IV ANXIETY Last administered on 01/26/19 09:15; Admin Dose 0.5 MG; Start 01/24/19 at 21:00 Insulin Aspart (Novolog Insulin Pen) NOVOLOG *MILD* ALGORI... AC MEALS AND BEDTIME SC Last administered on 01/25/19 17:17; Admin Dose 1 UNIT; Start 01/25/19 at 17:35 Doxycycline Hyclate (Vibramycin) 100 mg BID PO Last administered on 01/26/19 09:13; Admin Dose 100 MG; Start 01/26/19 at 09:00 Ferric Sodium Gluconate Complex 125 mg/Sodium Chloride 110 ml @ 110 mls/hr DAILY@1300 IVPB Last administered on 01/26/19 12:33; Admin Dose 110 MLS/HR; Start 01/26/19 at 13:00; Stop 01/30/19 at 13:59 SONAL ALBERT MD Jan 26, 2019 17:25
[2019-01-26 20:05] VITALS: BP 135/72; PULSE 88; RESP 18
[2019-01-27 02:18] VITALS: BP 167/77; PULSE 81; RESP 20
[2019-01-27] MEDS: BALSAM PERU/CASTOR OIL 60 GM TUBE TOP SCH ×3 (03:26→20:46)
[2019-01-27] MEDS: hydrALAzine 20 MG INJ IV PRN (03:44)
[2019-01-27] MEDS: HYDROCODONE/APAP (5/325) TAB PO PRN ×3 (05:24→18:34)
[2019-01-27] MEDS: PIPER-TAZO 3.375 GM IV (PMX) 100 ML IVPB SCH ×4 (05:43→23:48)
[2019-01-27] MEDS: INSULIN ASPART [NOVOLOG] 3 ML PEN SC SCH ×4 (07:30→21:00)
[2019-01-27 08:00] VITALS: BP 151/77; PULSE 99; RESP 18
[2019-01-27] MEDS: COLLAGENASE 5 GM (UD JAR) TOP SCH (08:09)
[2019-01-27] MEDS: DOXYCYCLINE 100 MG TAB PO SCH ×2 (08:09→20:44)
[2019-01-27] MEDS: FAMOTIDINE 20 MG INJ IV SCH (08:09)
[2019-01-27] MEDS: LORAZEPAM 2 MG INJ IV PRN ×3 (09:53→22:35)
--- NOTE | 2019-01-27 11:23 | CONS ---
Assessment/Plan Assessment/Plan Hospital Course (Demo Recall) #Anemia -patient's initial Hg of 2.6 was likely secondary to GIB and perforated viscous. Stool ob at that time was negative. -anemia panel is consistent with iron deficiency -continue Ferrlecit 125 mg IV x 5 days #Sepsis -continue antibiotics #Perforated viscous -continue conservative management per surgery #JACKIE -renal following -Creatnine improving Consultation Date/Type/Reason Admit Date/Time Jan 16, 2019 at 23:33 Initial Consult Date 01/25/19 Type of Consult hematology Reason for Consultation anemia Requesting Provider: SONAL ALBERT MD Date/Time of Note DATE: 01/27/19 TIME: 11:19 24 HR Interval Summary Free Text/Dictation no acute overnight events Exam/Review of Systems Exam Vitals Vital Signs Date Temp Pulse Resp B/P (MAP) Pulse Ox O2 O2 Flow FiO2 Time Delivery Rate 01/27/19 98.3 99 18 151/77 98 08:00 (101) 01/26/19 Room Air 14:20 Intake and Output 01/26/19 01/26/19 01/27/19 1515:00 23:00 07:00 IntakeIntake Total 210 ml 700 ml 600 ml OutputOutput Total 1600 ml 2100 ml BalanceBalance 210 ml -900 ml -1500 ml Constitutional: alert, oriented Psych: no complaints Head: normocephalic Eyes: nl conjunctiva ENMT: nl external ears & nose Neck: supple Respiratory: clear to auscultation Cardiovascular: regular rate and rhythm Gastrointestinal: soft Musculoskeletal: nl extremities to inspection Results Result Diagram: 01/27/19 0529 01/27/19 0529 Results 24hrs Laboratory Tests Test 01/26/19 12:14 01/26/19 18:15 01/26/19 21:23 01/27/19 05:29 Bedside Glucose 108 100 96 White Blood Count 7.3 Red Blood Count 3.24 L Hemoglobin 9.5 L Hematocrit 28.9 L Mean Corpuscular Volume 89.2 Mean Corpuscular 29.3 Hemoglobin Mean Corpuscular 32.9 Hemoglobin Concent Red Cell Distribution 15.8 H Width Platelet Count 258 Mean Platelet Volume 10.3 Immature Granulocytes % 0.500 H Neutrophils % 64.3 Lymphocytes % 21.8 Monocytes % 8.5 Eosinophils % 4.1 Basophils % 0.8 Nucleated Red Blood 0.0 Cells % Immature Granulocytes # 0.040 H Neutrophils # 4.7 Lymphocytes # 1.6 Monocytes # 0.6 Eosinophils # 0.3 Basophils # 0.1 Nucleated Red Blood 0.0 Cells # Sodium Level 136 Potassium Level 3.5 Chloride Level 112 H Carbon Dioxide Level 17 L Anion Gap 7 Blood Urea Nitrogen 10 Creatinine 0.97 Est Glomerular Filtrat 59 L Rate mL/min Glucose Level 77 Calcium Level 8.5 Phosphorus Level 2.6 Magnesium Level 1.8 Prealbumin 14.5 L Test 01/27/19 08:03 Bedside Glucose 78 Medications Medication Current Medications Albuterol (Ventolin Hfa) 4 puff Q2H RESP THERAPY PRN INH SHORTNESS OF BREATH; Start 01/17/19 at 00:00 Ipratropium [place] (Atrovent Hfa) 4 puff Q2H RESP THERAPY PRN INH SHORTNESS OF BREATH; Start 01/17/19 at 00:00 Acetaminophen (Tylenol Liquid) 650 mg Q6H PRN PO PAIN LEVEL 1-3 OR FEVER; Start 01/17/19 at 00:00 Miscellaneous Information 1 ea NOTE XX ; Start 01/17/19 at 11:00 Glucose (Glutose) 15 gm Q15M PRN PO DECREASED GLUCOSE; Start 01/17/19 at 11:00 Glucose (Glutose) 22.5 gm Q15M PRN PO DECREASED GLUCOSE; Start 01/17/19 at 11:00 Dextrose (D50w Syringe) 25 ml Q15M PRN IV DECREASED GLUCOSE; Start 01/17/19 at 11:00 Dextrose (D50w Syringe) 50 ml Q15M PRN IV DECREASED GLUCOSE; Start 01/17/19 at 11:00 Glucagon (Glucagen) 1 mg Q15M PRN IM DECREASED GLUCOSE; Start 01/17/19 at 11:00 Glucose (Glutose) 15 gm Q15M PRN BUCCAL DECREASED GLUCOSE; Start 01/17/19 at 11:00 Famotidine (Pepcid Iv) 20 mg DAILY IV Last administered on 01/27/19at 08:09; Admin Dose 20 MG; Start 01/18/19 at 09:00 Collagenase (Santyl) 1 applic DAILY TOP Last administered on 01/27/19at 08:09; Admin Dose 1 APPLIC; Start 01/17/19 at 17:00 Morphine Sulfate (morphine) 1 mg Q3H PRN IV SEVERE PAIN LEVEL 7-10 Last admini stered on 01/23/19 12:54; Admin Dose 1 MG; Start 01/18/19 at 19:00 Piperacillin Sod/ Tazobactam Sod 100 ml @ 200 mls/hr Q6 IVPB Last administered on 01/27/19 05:43; Admin Dose 200 MLS/HR; Start 01/21/19 at 12:00 Carvedilol (Coreg) 3.125 mg BID PO Last administered on 01/27/19 08:10; Admin Dose 3.125 MG; Start 01/21/19 at 09:00 Hydralazine HCl (Apresoline) 10 mg Q4H PRN IV SBP >170 Last administered on 01/27/19 03:44; Admin Dose 10 MG; Start 01/21/19 at 14:30 Acetaminophen/ Hydrocodone Bitart ([place] (5/325)) 1 tab Q4H PRN PO MODERATE PAIN LEVEL 4-6 Last administered on 01/27/19 05:24; Admin Dose 1 TAB; Start 01/24/19 at 17:00 Lorazepam (Ativan) 0.5 mg Q6H PRN IV ANXIETY Last administered on 01/27/19 09:53; Admin Dose 0.5 MG; Start 01/24/19 at 21:00 Insulin Aspart (Novolog Insulin Pen) NOVOLOG *MILD* ALGORI... AC MEALS AND BEDTIME SC Last administered on 01/25/19 17:17; Admin Dose 1 UNIT; Start 01/25/19 at 17:35 Doxycycline Hyclate (Vibramycin) 100 mg BID PO Last administered on 01/27/19 08:09; Admin Dose 100 MG; Start 01/26/19 at 09:00 Ferric Sodium Gluconate Complex 125 mg/Sodium Chloride 110 ml @ 110 mls/hr DAILY@1300 IVPB Last administered on 01/26/19 12:33; Admin Dose 110 MLS/HR; Start 01/26/19 at 13:00; Stop 01/30/19 at 13:59 RAJI DIXON M.D. Jan 27, 2019 11:23
--- NOTE | 2019-01-27 13:57 | PN ---
Date/Time of Note Date/Time of Note DATE: 01/27/19 TIME: 13:53 Assessment/Plan Lines/Catheters IV Catheter Type (from Nrs): Central Line Valadez in Place (from [facility]): Yes Assessment/Plan Chief Complaint/Hosp Course 1. Pneumoperitoneum with probable perforated viscus. Previously family did not consent to proceeding to surgery. She has significantly improved. Extubated. Repeat CT without bowel perforation or leak rather ? bladder perforation, ? cholangitis. 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 UTI: 2 #2 -abx per sensitivity -frequent bladder emptying/cath care 4. Hypochromic anemia: Status post PRBC transfusion, H&H stable -Monitor and transfuse as needed 5. Sepsis, leukocytosis: Resolved -Supportive (antibiotics, fluids,etc) -As above 6. Electrolyte imbalance: -Optimize electrolytes 7. JACKIE: improved -Limit nephrotoxic meds -Renally dose meds -Per renal 8. Thrombocytopenia mild, -Monitor 9. Transaminitis: Likely / #5 -Trend 10. NSTEMI: -Cardiac optimization per cards 11. Multiple wounds: + Wound cultures -local care> added Dakin's -frequent turning and off-loading -low air loss mattress -vitamin c -short term zinc -optimize nutrition Thank you. Patient seen and examined in collaboration with Dr. Osei Sanofrd. Subjective 24 Hr Interval Summary Intermittent abd pain and anxiety. Hungry. Tolerating liquid diet. + Bowel function. No fevers, chills, sob, congested cough, cp, palpitations, keita, dizziness, nausea, vomiting, diarrhea, dysuria. Exam/Review of Systems Vital Signs Vitals Vital Signs Date Temp Pulse Resp B/P (MAP) Pulse Ox O2 O2 Flow FiO2 Time Delivery Rate 01/27/19 98.3 99 18 151/77 98 08:00 (101) 01/26/19 Room Air 14:20 Intake and Output 01/26/19 01/26/19 01/27/19 1515:00 23:00 07:00 IntakeIntake Total 210 ml 700 ml 600 ml OutputOutput Total 1600 ml 2100 ml BalanceBalance 210 ml -900 ml -1500 ml Exam Free Text/Dictation Constitutional: NAD, well developed; Psych: nl mood/affect, anxiety (Minimal) Head: normocephalic, atraumatic Eyes: nl conjunctiva, EOMI, nl lids, nl sclera ENMT: nl external ears & nose, no nl lips & teeth (poor dentition), mucosa pink and moist Neck: supple, non-tender; No jvd Respiratory: normal air movement; No congested cough, No labored breathing Cardiovascular: regular rate and rhythm, nl pulses; No edema Gastrointestinal: soft, distended (improved-minimal), min tender, no rebound Genitourinary - Female: nl external genitalia Musculoskeletal: nl extremities to inspection, nl gait and stance Extremities: normal pulses Neurological: nl speech, no normal strength (generalized weakness) Skin: No rash or lesions Lymph: nl lymph nodes Results Result Diagram: 01/27/19 0529 01/27/19 0529 MASSIMO WATKINS NP Jan 27, 2019 13:57
[2019-01-27] MEDS: SOD FERRIC GLUC COMPLX 125 MG in SOD CHLORIDE 0.9% 100 ML IVPB SCH (14:05)
[2019-01-27 14:40] VITALS: BP 168/88; PULSE 87; RESP 16
--- NOTE | 2019-01-27 15:26 | PN ---
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: - Abx per ID Colovesicular fistula: - Per urology, no need for surgical intervention - Continue may Macrocytic anemia secondary to elevated reticulocyte count - Status post 4 units of packed red blood cells - stable Iron deficiency: - IV iron Acute kidney injury secondary to severe septic shock-improving - Renal function improved to baseline Debility secondary history of back surgery and comorbidities Patient has multiple skin wounds, continue wound care Patient may require nursing placement upon DC Prophylaxis: SCDs, Protonix Result Diagram: 01/27/19 0529 01/27/19 0529 Results 24hrs Laboratory Tests Test 01/26/19 18:15 01/26/19 21:23 01/27/19 05:29 01/27/19 08:03 Bedside Glucose 100 96 78 White Blood Count 7.3 Red Blood Count 3.24 L Hemoglobin 9.5 L Hematocrit 28.9 L Mean Corpuscular Volume 89.2 Mean Corpuscular 29.3 Hemoglobin Mean Corpuscular 32.9 Hemoglobin Concent Red Cell Distribution 15.8 H Width Platelet Count 258 Mean Platelet Volume 10.3 Immature Granulocytes % 0.500 H Neutrophils % 64.3 Lymphocytes % 21.8 Monocytes % 8.5 Eosinophils % 4.1 Basophils % 0.8 Nucleated Red Blood 0.0 Cells % Immature Granulocytes # 0.040 H Neutrophils # 4.7 Lymphocytes # 1.6 Monocytes # 0.6 Eosinophils # 0.3 Basophils # 0.1 Nucleated Red Blood 0.0 Cells # Sodium Level 136 Potassium Level 3.5 Chloride Level 112 H Carbon Dioxide Level 17 L Anion Gap 7 Blood Urea Nitrogen 10 Creatinine 0.97 Est Glomerular Filtrat 59 L Rate mL/min Glucose Level 77 Calcium Level 8.5 Phosphorus Level 2.6 Magnesium Level 1.8 Prealbumin 14.5 L Test 01/27/19 12:06 Bedside Glucose 108 Subjective 24 Hr Interval Summary Free Text/Dictation MRI hip shows AVN vs OM of her hip Exam/Review of Systems Exam Vitals Vital Signs Date Temp Pulse Resp B/P (MAP) Pulse Ox O2 O2 Flow FiO2 Time Delivery Rate 01/27/19 98.0 87 16 168/88 99 Room Air 14:40 (114) Intake and Output 01/26/19 01/26/19 01/27/19 1414:59 22:59 06:59 IntakeIntake Total 760 ml 700 ml 600 ml OutputOutput Total 2200 ml 1600 ml 2100 ml BalanceBalance -1440 ml -900 ml -1500 ml Constitutional: alert, oriented, well developed Psych: no complaints, nl mood/affect Head: normocephalic, atraumatic Eyes: nl conjunctiva, EOMI, nl lids, nl sclera, PERRL ENMT: nl external ears & nose, nl lips & teeth, nl nasal mucosa & septum Neck: supple, non-tender Respiratory: clear to auscultation, normal air movement Cardiovascular: regular rate and rhythm, nl pulses Gastrointestinal: soft, nl liver, spleen, non-tender Musculoskeletal: nl extremities to inspection, nl gait and stance Extremities: normal pulses Neurological: MANAGER EXPRESS II-XII intact, nl mental status, nl speech, nl strength Skin: nl turgor; No rash or lesions Lymph: nl lymph nodes Results Results 24hrs Laboratory Tests Test 01/26/19 18:15 01/26/19 21:23 01/27/19 05:29 01/27/19 08:03 Bedside Glucose 100 96 78 White Blood Count 7.3 Red Blood Count 3.24 L Hemoglobin 9.5 L Hematocrit 28.9 L Mean Corpuscular Volume 89.2 Mean Corpuscular 29.3 Hemoglobin Mean Corpuscular 32.9 Hemoglobin Concent Red Cell Distribution 15.8 H Width Platelet Count 258 Mean Platelet Volume 10.3 Immature Granulocytes % 0.500 H Neutrophils % 64.3 Lymphocytes % 21.8 Monocytes % 8.5 Eosinophils % 4.1 Basophils % 0.8 Nucleated Red Blood 0.0 Cells % Immature Granulocytes # 0.040 H Neutrophils # 4.7 Lymphocytes # 1.6 Monocytes # 0.6 Eosinophils # 0.3 Basophils # 0.1 Nucleated Red Blood 0.0 Cells # Sodium Level 136 Potassium Level 3.5 Chloride Level 112 H Carbon Dioxide Level 17 L Anion Gap 7 Blood Urea Nitrogen 10 Creatinine 0.97 Est Glomerular Filtrat 59 L Rate mL/min Glucose Level 77 Calcium Level 8.5 Phosphorus Level 2.6 Magnesium Level 1.8 Prealbumin 14.5 L Test 01/27/19 12:06 Bedside Glucose 108 Medications Medication Current Medications Albuterol (Ventolin Hfa) 4 puff Q2H RESP THERAPY PRN INH SHORTNESS OF BREATH; Start 01/17/19 at 00:00 Ipratropium [place] (Atrovent Hfa) 4 puff Q2H RESP THERAPY PRN INH SHORTNESS OF BREATH; Start 01/17/19 at 00:00 Acetaminophen (Tylenol Liquid) 650 mg Q6H PRN PO PAIN LEVEL 1-3 OR FEVER; Start 01/17/19 at 00:00 Miscellaneous Information 1 ea NOTE XX ; Start 01/17/19 at 11:00 Glucose (Glutose) 15 gm Q15M PRN PO DECREASED GLUCOSE; Start 01/17/19 at 11:00 Glucose (Glutose) 22.5 gm Q15M PRN PO DECREASED GLUCOSE; Start 01/17/19 at 11:00 Dextrose (D50w Syringe) 25 ml Q15M PRN IV DECREASED GLUCOSE; Start 01/17/19 at 11:00 Dextrose (D50w Syringe) 50 ml Q15M PRN IV DECREASED GLUCOSE; Start 01/17/19 at 11:00 Glucagon (Glucagen) 1 mg Q15M PRN IM DECREASED GLUCOSE; Start 01/17/19 at 11:00 Glucose (Glutose) 15 gm Q15M PRN BUCCAL DECREASED GLUCOSE; Start 01/17/19 at 11:00 Famotidine (Pepcid Iv) 20 mg DAILY IV Last administered on 01/27/19at 08:09; Admin Dose 20 MG; Start 01/18/19 at 09:00 Collagenase (Santyl) 1 applic DAILY TOP Last administered on 01/27/19 08:09; Admin Dose 1 APPLIC; Start 01/17/19 at 17:00 Morphine Sulfate (morphine) 1 mg Q3H PRN IV SEVERE PAIN LEVEL 7-10 Last administered on 01/23/19at 12:54; Admin Dose 1 MG; Start 01/18/19 at 19:00 Piperacillin Sod/ Tazobactam Sod 100 ml @ 200 mls/hr Q6 IVPB Last administered on 4/4/19at 12:07; Admin Dose 200 MLS/HR; Start 01/21/19 at 12:00 Carvedilol (Coreg) 3.125 mg BID PO Last administered on 01/27/19 08:10; Admin Dose 3.125 MG; Start 01/21/19 at 09:00 Hydralazine HCl (Apresoline) 10 mg Q4H PRN IV SBP >170 Last administered on 01/27/19 03:44; Admin Dose 10 MG; Start 01/21/19 at 14:30 Acetaminophen/ Hydrocodone Bitart ([place] (5/325)) 1 tab Q4H PRN PO MODERATE PAIN LEVEL 4-6 Last administered on 01/27/19 12:38; Admin Dose 1 TAB; Start 01/24/19 at 17:00 Lorazepam (Ativan) 0.5 mg Q6H PRN IV ANXIETY Last administered on 01/27/19 09:53; Admin Dose 0.5 MG; Start 01/24/19 at 21:00 Insulin Aspart (Novolog Insulin Pen) NOVOLOG *MILD* ALGORI... AC MEALS AND BEDTIME SC Last administered on 01/25/19 17:17; Admin Dose 1 UNIT; Start 01/25/19 at 17:35 Doxycycline Hyclate (Vibramycin) 100 mg BID PO Last administered on 01/27/19 08:09; Admin Dose 100 MG; Start 01/26/19 at 09:00 Ferric Sodium Gluconate Complex 125 mg/Sodium Chloride 110 ml @ 110 mls/hr DAILY@1300 IVPB Last administered on 01/27/19 14:05; Admin Dose 110 MLS/HR; Start 01/26/19 at 13:00; Stop 01/30/19 at 13:59 Sodium Hypochlorite (Dakins Diluted ()) 1 applic DAILY TP ; Start 01/28/19 at 09:00 Nystatin (Nystatin Powder) 1 applic BID TOP ; Start 01/27/19 at 21:00 SONAL ALBERT MD Jan 27, 2019 15:26
[2019-01-27 19:40] VITALS: BP 149/79; PULSE 87; RESP 19
--- NOTE | 2019-01-27 20:09 | CONS ---
Consult Date/Type/Reason Admit Date/Time Jan 16, 2019 at 23:33 Initial Consult Date 01/17/19 Type of Consultation: Urology Reason for Consultation Possible colovesical fistula Requesting Provider: SONAL ALBERT MD Date/Time of Note DATE: 01/27/19 TIME: 20:03 Subjective The patient is feeling much better, she is alert awake and happy that she is able to eat Objective Vitals Vital Signs Date Temp Pulse Resp B/P (MAP) Pulse Ox O2 O2 Flow FiO2 Time Delivery Rate 01/27/19 98.0 87 16 168/88 99 Room Air 14:40 (114) Intake and Output 01/26/19 01/26/19 01/27/19 1515:00 23:00 07:00 IntakeIntake Total 210 ml 700 ml 600 ml OutputOutput Total 1600 ml 2100 ml BalanceBalance 210 ml -900 ml -1500 ml Exam The Valadez catheter is draining clear urine. Results/Medications Result Diagram: 01/27/19 0529 01/27/19 0529 Results 24 hrs Laboratory Tests Test 01/26/19 21:23 01/27/19 05:29 01/27/19 08:03 01/27/19 12:06 Bedside Glucose 96 78 108 White Blood Count 7.3 Red Blood Count 3.24 L Hemoglobin 9.5 L Hematocrit 28.9 L Mean Corpuscular Volume 89.2 Mean Corpuscular 29.3 Hemoglobin Mean Corpuscular 32.9 Hemoglobin Concent Red Cell Distribution 15.8 H Width Platelet Count 258 Mean Platelet Volume 10.3 Immature Granulocytes % 0.500 H Neutrophils % 64.3 Lymphocytes % 21.8 Monocytes % 8.5 Eosinophils % 4.1 Basophils % 0.8 Nucleated Red Blood 0.0 Cells % Immature Granulocytes # 0.040 H Neutrophils # 4.7 Lymphocytes # 1.6 Monocytes # 0.6 Eosinophils # 0.3 Basophils # 0.1 Nucleated Red Blood 0.0 Cells # Sodium Level 136 Potassium Level 3.5 Chloride Level 112 H Carbon Dioxide Level 17 L Anion Gap 7 Blood Urea Nitrogen 10 Creatinine 0.97 Est Glomerular Filtrat 59 L Rate mL/min Glucose Level 77 Calcium Level 8.5 Phosphorus Level 2.6 Magnesium Level 1.8 Prealbumin 14.5 L Test 01/27/19 17:26 Bedside Glucose 114 Home Meds Reported Medications Gabapentin* (Gabapentin*) 100 Mg Capsule, 100 MG PO TID, #90 CAP 01/20/18 Medications Current Medications Albuterol (Ventolin Hfa) 4 puff Q2H RESP THERAPY PRN INH SHORTNESS OF BREATH; Start 01/17/19 at 00:00 Ipratropium [place] (Atrovent Hfa) 4 puff Q2H RESP THERAPY PRN INH SHORTNESS OF BREATH; Start 01/17/19 at 00:00 Acetaminophen (Tylenol Liquid) 650 mg Q6H PRN PO PAIN LEVEL 1-3 OR FEVER; Start 01/17/19 at 00:00 Miscellaneous Information 1 ea NOTE XX ; Start 01/17/19 at 11:00 Glucose (Glutose) 15 gm Q15M PRN PO DECREASED GLUCOSE; Start 01/17/19 at 11:00 Glucose (Glutose) 22.5 gm Q15M PRN PO DECREASED GLUCOSE; Start 01/17/19 at 11:00 Dextrose (D50w Syringe) 25 ml Q15M PRN IV DECREASED GLUCOSE; Start 01/17/19 at 11:00 Dextrose (D50w Syringe) 50 ml Q15M PRN IV DECREASED GLUCOSE; Start 01/17/19 at 11:00 Glucagon (Glucagen) 1 mg Q15M PRN IM DECREASED GLUCOSE; Start 01/17/19 at 11:00 Glucose (Glutose) 15 gm Q15M PRN BUCCAL DECREASED GLUCOSE; Start 01/17/19 at 11:00 Famotidine (Pepcid Iv) 20 mg DAILY IV Last administered on 01/27/19 08:09; Admin Dose 20 MG; Start 01/18/19 at 09:00 Collagenase (Santyl) 1 applic DAILY TOP Last administered on 01/27/19 08:09; Admin Dose 1 APPLIC; Start 01/17/19 at 17:00 Morphine Sulfate (morphine) 1 mg Q3H PRN IV SEVERE PAIN LEVEL 7-10 Last administered on 01/23/19at 12:54; Admin Dose 1 MG; Start 01/18/19 at 19:00 Piperacillin Sod/ Tazobactam Sod 100 ml @ 200 mls/hr Q6 IVPB Last administered on 01/27/19 17:27; Admin Dose 200 MLS/HR; Start 01/21/19 at 12:00 Carvedilol (Coreg) 3.125 mg BID PO Last administered on 01/27/19 08:10; Admin Dose 3.125 MG; Start 01/21/19 at 09:00 Hydralazine HCl (Apresoline) 10 mg Q4H PRN IV SBP >170 Last administered on 01/27/19 03:44; Admin Dose 10 MG; Start 01/21/19 at 14:30 Acetaminophen/ Hydrocodone Bitart ([place] (5/325)) 1 tab Q4H PRN PO MODERATE PAIN LEVEL 4-6 Last administered on 01/27/19 18:34; Admin Dose 1 TAB; Start 01/24/19 at 17:00 Lorazepam (Ativan) 0.5 mg Q6H PRN IV ANXIETY Last administered on 01/27/19 16:23; Admin Dose 0.5 MG; Start 01/24/19 at 21:00 Insulin Aspart (Novolog Insulin Pen) NOVOLOG *MILD* ALGORI... AC MEALS AND BEDTIME SC Last administered on 01/25/19 17:17; Admin Dose 1 UNIT; Start 01/25/19 at 17:35 Doxycycline Hyclate (Vibramycin) 100 mg BID PO Last administered on 01/27/19 08:09; Admin Dose 100 MG; Start 01/26/19 at 09:00 Ferric Sodium Gluconate Complex 125 mg/Sodium Chloride 110 ml @ 110 mls/hr DAILY@1300 IVPB Last administered on 01/27/19 14:05; Admin Dose 110 MLS/HR; Start 01/26/19 at 13:00; Stop 01/30/19 at 13:59 Sodium Hypochlorite (Dakins Diluted (40)) 1 applic DAILY TP ; Start 01/28/19 at 09:00 Nystatin (Nystatin Powder) 1 applic BID TOP ; Start 01/27/19 at 21:00 Assessment/Plan Hospital Course (Demo Recall) 58-year-old female with a past medical history of ambulatory dysfunction was found confused and weak by her sister at home. Patient was brought in via EMS and was noted to be confused but she was answering questions appropriately according to the ER doctor. Patient in the emergency department was also noted to be hypothermic and given her low GCS score patient was emergently intubated. She was found to have severe anemia with a hemoglobin of 2 along with lactic acidosis and renal failure. The patient was transfused and had a CT scan of the abdomen and pelvis that showed: 1. Pneumoperitoneum compatible with a perforated hollow viscus, the etiology of which is uncertain, severe constipation pattern is present. 2. Abnormal urinary bladder with a Valadez catheter and gas both within the bladder and the bladder wall unable to exclude emphysematous cystitis and p ossibly a fistula with the adjacent colon. An abscess anterior to the urinary bladder is the possibility on this exam limited by the lack of intravenous contrast media. 3. Gallbladder distension with common bile duct dilatation but no evidence of calcified gallstones, findings of uncertain significance. 4. Gas is present within the right renal pelvis and right ureter for urinary tract infection with mild right hydroureter. 5. Mild splenomegaly. 6. Adrenal gland hyperplasia greater on the left. 7. Anasarca pattern. 8. Chronic T11 compression fracture deformity. Since then the patient has improved a lot and now she is eating. The Valadez catheter is draining clear urine. Repeat CT scan done on January 23, 2019 showed: 1. Focal thinning of the superior bladder wall concerning for bladder wall defect/injury. Small amount of air at the superior margin of the bladder near the defect, unclear if this is within the bladder or adjacent to the bladder. Correlate clinically. Consider further evaluation with cystoscopy. 2. No evidence of extraluminal contrast to suggest a bowel leak. 3. Small volume ascites. Small bilateral pleural effusions. Body wall edema. 4. Mild common bile duct dilatation measuring up to 9 mm. Possible common bile duct wall enhancement. Correlate for possible cholangitis. Correlate with serum bilirubin for possible biliary obstruction. If clinically indicated, consider further evaluation with MRCP with contrast. 5. Bladder wall thickening may be due to underdistension and generalized ascites. However, if there is clinical concern for acute cholecystitis, this may be further evaluated with ultrasound. This probably meant gallbladder 6. Mild irregular contour of the liver correlate for chronic liver disease. 7. Splenomegaly. Nonspecific small hyperdensities in the spleen, may represent cysts, hemangiomas, infection, or neoplasm. 8. Age-indeterminate mild compression deformity of T11 vertebral body, mildly increased compared to prior MRI spine on 01/21/2018. Because of the above findings on the CT scan I will order a CT cystogram to be done by filling up the bladder with contrast through the Valadez catheter. TINO RIVERA MD Jan 27, 2019 20:09
[2019-01-27] MEDS: NYSTATIN 30 GM POWDER BTL TOP SCH (20:46)
[2019-01-28] MEDS: HYDROCODONE/APAP (5/325) TAB PO PRN ×3 (01:15→21:12)
[2019-01-28 02:10] VITALS: BP 146/71; PULSE 86; RESP 20
[2019-01-28] MEDS: PIPER-TAZO 3.375 GM IV (PMX) 100 ML IVPB SCH ×4 (05:20→23:52)
[2019-01-28] MEDS: LORAZEPAM 2 MG INJ IV PRN ×3 (05:28→21:16)
--- NOTE | 2019-01-28 06:45 | CONS ---
Assessment/Plan Assessment/Plan Hospital Course (Demo Recall) 1) pneumoperitoneum and sepsis could be related to pt taking motrin for some pain continue with vanco/zosyn at present to renally dose them await decision by family regarding surgery vs hospice 01/18 - continue with vanco/zosyn CoNS in blood, only one bottle, likely represents contamination e.coli in urine is sensitive to the zosyn pt has EtOH abuse lactic acid has normalized 01/19 - MRSA in nasal area, likely perf is gastric or duodenal to continue with vanco at present and zosyn decrease in platelets noted, may need to change vanco if trend continues 01/20 - no significant change a.m. labs are pending due to blood tx overnight on vanco/zosyn pt has GNR in blood cx, ID is pending but sensitive to zosyn 01/21 - increase dose of zosyn as renal function is further improved awaits CT abd/pelv repeat to see if pt can start to eat alcaligenes was also in blood cx and is a stool bacteria 01/22 - pt passed swallow eval for oral contrast, but CT is still pending continue with vanco/zosyn at present 01/24 - await CT results, pt has tolerated clear liquids though on vanco/zosyn to continue at present pt will need zosyn thru 01/29/19 at least (pt will need eval for possible L hip osteo and if present will need a longer course of the zosyn when pt on full orals will change vanco to doxycycline 01/26 - continue with zosyn, change vanco to doxycycline 01/27 - stable and eating soft foods without difficulty pt to get CT cystogram to see if pt has fistula from bladder 2)severe anemia pt is being transfused only smears of stool since admission to get hemoccult 01/18 - Hgb is more stable 01/19 - drop in Hgb again, will need blood tx again 01/20 - pt tx again, a.m. labs are pending 01/21 - Hgb is at 9 now 01/22 - Hgb is stable 01/28 - Hgb remains stable 3) ARF with pyuria and hematuria (e.coli in urine) improving with hydration and blood tx await urine cx results 01/18 - improving urine output and creatinine urine cx has e.coli that is sensitive to zosyn renal u/s suggests hydro on the R and possible renal clot or debris on L 01/19 - further improvement in creatinine on zosyn for e.coli in urine 01/21 - further improvement in renal function 01/22 - creatinine almost normal 01/24 - creatinine has normalized while on vanco 4) elevated troponins likely due to stress from severe anemia 5) hepatitis again likely due to sepsis and severe anemia check hep serologies 01/18 - hep serologies are pending 01/19 - neg hep serologies and HIV LFT's are trending down 6) L hip eschar/decubitus unstageable wound cx was ordered 01/18 - wound cx has not been done, nurse was informed 01/19 - wound cx was obtained and is pending 01/20 - wound cx has GPC growing 01/21 - MRSA in wound cx from hip, continue with vanco at present platelets are improving 01/22 - MRSA and alcaligenes was in wound cx ESR is extremely high, pt will likely need MRI of L hip area to see if osteomyelitis is present when pt is more stable 01/24 - when pt is eating will order MRI of L hip to see if osteo is present (pt has deep ulcer there and very high ESR) continue vanco/zosyn at present 01/26 - I will order MRI with contrast to L hip area on zosyn/doxy now 01/28 - MRI done and shows probable septic arthritis and possible early osteo I would continue with doxy/zosyn for 4 week regimen (thru 02/12/19) ESR was greatly improved (too improved?), to repeat ESR in a.m. 7) hypoalbuminemia pt came in with low albumin, she has likely been sick or not eating well for a while 8) CoNS bacteremia 01/18 - only one bottle has CoNS, likely this is contamination continue with vanco at present, await final wound cx results 9) decrease in platelets 01/19 - consider change of vanco if trend continues 01/20 - her MRSA is sensitive to doxy so could change vanco to that 01/21 - platelets are improved 01/22 - platelets are WNL 10) GNR in original blood cx (alcaligenes faecalis) 01/20 - ID is pending but it is sensitive to zosyn 01/21 - alcaligenes is a stool bacteria and likely related to her peritonitis continue with zosyn 01/22 - yadialigines was also in wound cx when pt is eating and more stable will order MRI of L hip to verify no osteo or abscess is present 01/24 - pt will need at least zosyn thru 01/29, longer if osteo of L hip is present Consultation Date/Type/Reason Admit Date/Time Jan 16, 2019 at 23:33 Initial Consult Date 01/17/19 Type of Consult ID Requesting Provider: SONAL ALBERT MD Date/Time of Note DATE: 01/28/19 TIME: 06:40 24 HR Interval Summary Free Text/Dictation pt unable to poop and feels abd discomfort but not pain no increase discomfort post eating no N, V, breathing is ok pain is mainly to L hip area Exam/Review of Systems Exam Vitals Vital Signs Date Temp Pulse Resp B/P (MAP) Pulse Ox O2 O2 Flow FiO2 Time Delivery Rate 01/28/19 98.4 86 20 146/71 97 02:10 (96) 01/27/19 Room Air 14:40 Intake and Output 01/27/19 01/27/19 01/28/19 1414:59 22:59 06:59 IntakeIntake Total 810 ml 410 ml 200 ml OutputOutput Total 1000 ml 1200 ml 1650 ml BalanceBalance -190 ml -790 ml -1450 ml Constitutional: alert Eyes: nl sclera Respiratory: clear to auscultation Cardiovascular: regular rate and rhythm Gastrointestinal: soft, non-tender Results Result Diagram: 01/27/19 0529 01/27/19 0529 Results 24hrs Laboratory Tests Test 01/27/19 08:03 01/27/19 12:06 01/27/19 17:26 01/27/19 20:45 Bedside Glucose 78 108 114 99 Medications Medication Current Medications Albuterol (Ventolin Hfa) 4 puff Q2H RESP THERAPY PRN INH SHORTNESS OF BREATH; Start 01/17/19 at 00:00 Ipratropium [place] (Atrovent Hfa) 4 puff Q2H RESP THERAPY PRN INH SHORTNESS OF BREATH; Start 01/17/19 at 00:00 Acetaminophen (Tylenol Liquid) 650 mg Q6H PRN PO PAIN LEVEL 1-3 OR FEVER; Start 01/17/19 at 00:00 Miscellaneous Information 1 ea NOTE XX ; Start 01/17/19 at 11:00 Glucose (Glutose) 15 gm Q15M PRN PO DECREASED GLUCOSE; Start 01/17/19 at 11:00 Glucose (Glutose) 22.5 gm Q15M PRN PO DECREASED GLUCOSE; Start 01/17/19 at 11:00 Dextrose (D50w Syringe) 25 ml Q15M PRN IV DECREASED GLUCOSE; Start 01/17/19 at 11:00 Dextrose (D50w Syringe) 50 ml Q15M PRN IV DECREASED GLUCOSE; Start 01/17/19 at 11:00 Glucagon (Glucagen) 1 mg Q15M PRN IM DECREASED GLUCOSE; Start 01/17/19 at 11:00 Glucose (Glutose) 15 gm Q15M PRN BUCCAL DECREASED GLUCOSE; Start 01/17/19 at 1 1:00 Famotidine (Pepcid Iv) 20 mg DAILY IV Last administered on 01/27/19 08:09; Admin Dose 20 MG; Start 01/18/19 at 09:00 Collagenase (Santyl) 1 applic DAILY TOP Last administered on 01/27/19 08:09; Admin Dose 1 APPLIC; Start 01/17/19 at 17:00 Morphine Sulfate (morphine) 1 mg Q3H PRN IV SEVERE PAIN LEVEL 7-10 Last administered on 01/23/19 12:54; Admin Dose 1 MG; Start 01/18/19 at 19:00 Piperacillin Sod/ Tazobactam Sod 100 ml @ 200 mls/hr Q6 IVPB Last administered on 01/28/19 05:20; Admin Dose 200 MLS/HR; Start 01/21/19 at 12:00 Carvedilol (Coreg) 3.125 mg BID PO Last administered on 01/27/19 20:44; Admin Dose 3.125 MG; Start 01/21/19 at 09:00 Hydralazine HCl (Apresoline) 10 mg Q4H PRN IV SBP >170 Last administered on 01/27/19 03:44; Admin Dose 10 MG; Start 01/21/19 at 14:30 Acetaminophen/ Hydrocodone Bitart ([place] (5/325)) 1 tab Q4H PRN PO MODERATE PAIN LEVEL 4-6 Last administered on 01/28/19 01:15; Admin Dose 1 TAB; Start 01/24/19 at 17:00 Lorazepam (Ativan) 0.5 mg Q6H PRN IV ANXIETY Last administered on 01/28/19 05:28; Admin Dose 0.5 MG; Start 01/24/19 at 21:00 Insulin Aspart (Novolog Insulin Pen) NOVOLOG *MILD* ALGORI... AC MEALS AND BEDTIME SC Last administered on 01/25/19 17:17; Admin Dose 1 UNIT; Start 01/25/19 at 17:35 Doxycycline Hyclate (Vibramycin) 100 mg BID PO Last administered on 01/27/19at 20:44; Admin Dose 100 MG; Start 01/26/19 at 09:00 Ferric Sodium Gluconate Complex 125 mg/Sodium Chloride 110 ml @ 110 mls/hr DAILY@1300 IVPB Last administered on 01/27/19at 14:05; Admin Dose 110 MLS/HR; Start 01/26/19 at 13:00; Stop 01/30/19 at 13:59 Sodium Hypochlorite (Dakins Diluted (40)) 1 applic DAILY TP ; Start 01/28/19 at 09:00 Nystatin (Nystatin Powder) 1 applic BID TOP Last administered on 01/27/19at 20:46; Admin Dose 1 APPLIC; Start 01/27/19 at 21:00 PATSY LEVY MD Jan 28, 2019 06:45
[2019-01-28] MEDS: INSULIN ASPART [NOVOLOG] 3 ML PEN SC SCH ×4 (07:30→21:00)
[2019-01-28 08:00] VITALS: BP 137/85; PULSE 76; RESP 20
[2019-01-28] MEDS: FAMOTIDINE 20 MG INJ IV SCH (08:07)
[2019-01-28] MEDS: DOXYCYCLINE 100 MG TAB PO SCH ×2 (08:07→21:12)
[2019-01-28] MEDS: COLLAGENASE 5 GM (UD JAR) TOP SCH (08:07)
[2019-01-28] MEDS: NYSTATIN 30 GM POWDER BTL TOP SCH ×2 (08:08→21:22)
[2019-01-28] MEDS: BALSAM PERU/CASTOR OIL 60 GM TUBE TOP SCH ×2 (08:10→21:22)
[2019-01-28] MEDS: DOCUSATE SODIUM 100 MG CAP PO SCH ×2 (08:11→21:12)
[2019-01-28] MEDS ORDERED: DAKINS 0.0125%(1/40) 473 ML SOLUTION TP SCH (09:00)
[2019-01-28] MEDS ORDERED: IOHEXOL 300MG/ML 30 ML BTL ONE ×2 (09:00→09:01)
[2019-01-28] MEDS ORDERED: SOD CHLORIDE 0.9% 0 ML ONE (09:00)
[2019-01-28] MEDS ORDERED: SOD CHLORIDE 0.9% 500 ML ONE (09:01)
[2019-01-28 11:16] VITALS: Ht 160 cm; Wt 66.6 kg
--- NOTE | 2019-01-28 11:48 | PN ---
Date/Time of Note Date/Time of Note DATE: 01/28/19 TIME: 11:47 Assessment/Plan VTE Prophylaxis Risk score (from Nsg)>0 risk: 7 SCD applied (from Nsg): Yes Pharmacological prophylaxis: heparin Lines/Catheters IV Catheter Type (from Nrsg): Central Line Central line still needed: Yes Urinary Cath still in place: Yes Reason Cath still needed: urinary retention Assessment/Plan Hospital Course Sepsis:- - Shock resolved, continue abx per ID Peforated viscus: - management per surgery - abx Hip AVN vs OM: - Abx per ID Colovesicular fistula: - Per urology, no need for surgical intervention - Continue may Macrocytic anemia secondary to elevated reticulocyte count - Status post 4 units of packed red blood cells - stable Iron deficiency: - IV iron Acute kidney injury secondary to severe septic shock-improving - Renal function improved to baseline Debility secondary history of back surgery and comorbidities Patient has multiple skin wounds, continue wound care Patient may require nursing placement upon DC Prophylaxis: SCDs, Protonix Result Diagram: 01/27/19 0529 01/27/19 0529 Results 24hrs Laboratory Tests Test 01/27/19 12:06 01/27/19 17:26 01/27/19 20:45 01/28/19 07:58 Bedside Glucose 108 114 99 88 Subjective 24 Hr Interval Summary Free Text/Dictation Ordered for CT cystogram but patient refusing Denies compliants Exam/Review of Systems Exam Vitals Vital Signs Date Temp Pulse Resp B/P (MAP) Pulse Ox O2 O2 Flow FiO2 Time Delivery Rate 01/28/19 98.6 76 20 137/85 94 08:00 (102) 01/27/19 Room Air 14:40 Intake and Output 01/27/19 01/27/19 01/28/19 1515:00 23:00 07:00 IntakeIntake Total 810 ml 410 ml 200 ml OutputOutput Total 1000 ml 1200 ml 1650 ml BalanceBalance -190 ml -790 ml -1450 ml Exam Alert, oriented RRR Breathing comfortably Soft nt nd Folely in place Contracted, spastic legs. Pressure ulcer over L hip Results Results 24hrs Laboratory Tests Test 01/27/19 12:06 01/27/19 17:26 01/27/19 20:45 01/28/19 07:58 Bedside Glucose 108 114 99 88 Medications Medication Current Medications Albuterol (Ventolin Hfa) 4 puff Q2H RESP THERAPY PRN INH SHORTNESS OF BREATH; Start 01/17/19 at 00:00 Ipratropium [place] (Atrovent Hfa) 4 puff Q2H RESP THERAPY PRN INH SHORTNESS OF BREATH; Start 01/17/19 at 00:00 Acetaminophen (Tylenol Liquid) 650 mg Q6H PRN PO PAIN LEVEL 1-3 OR FEVER; Start 01/17/19 at 00:00 Miscellaneous Information 1 ea NOTE XX ; Start 01/17/19 at 11:00 Glucose (Glutose) 15 gm Q15M PRN PO DECREASED GLUCOSE; Start 01/17/19 at 11:00 Glucose (Glutose) 22.5 gm Q15M PRN PO DECREASED GLUCOSE; Start 01/17/19 at 11:00 Dextrose (D50w Syringe) 25 ml Q15M PRN IV DECREASED GLUCOSE; Start 01/17/19 at 11:00 Dextrose (D50w Syringe) 50 ml Q15M PRN IV DECREASED GLUCOSE; Start 01/17/19 at 11:00 Glucagon (Glucagen) 1 mg Q15M PRN IM DECREASED GLUCOSE; Start 01/17/19 at 11:00 Glucose (Glutose) 15 gm Q15M PRN BUCCAL DECREASED GLUCOSE; Start 01/17/19 at 11:00 Famotidine (Pepcid Iv) 20 mg DAILY IV Last administered on 01/28/19at 08:07; Admin Dose 20 MG; Start 01/18/19 at 09:00 Collagenase (Santyl) 1 applic DAILY TOP Last administered on 01/28/19at 08:07; Ad min Dose 1 APPLIC; Start 01/17/19 at 17:00 Morphine Sulfate (morphine) 1 mg Q3H PRN IV SEVERE PAIN LEVEL 7-10 Last administered on 01/23/19at 12:54; Admin Dose 1 MG; Start 01/18/19 at 19:00 Piperacillin Sod/ Tazobactam Sod 100 ml @ 200 mls/hr Q6 IVPB Last administered on 01/28/19at 05:20; Admin Dose 200 MLS/HR; Start 01/21/19 at 12:00 Carvedilol (Coreg) 3.125 mg BID PO Last administered on 01/28/19at 08:08; Admin Dose 3.125 MG; Start 01/21/19 at 09:00 Hydralazine HCl (Apresoline) 10 mg Q4H PRN IV SBP >170 Last administered on 01/27/19 03:44; Admin Dose 10 MG; Start 01/21/19 at 14:30 Acetaminophen/ Hydrocodone Bitart ([place] (5/325)) 1 tab Q4H PRN PO MODERATE PAIN LEVEL 4-6 Last administered on 01/28/19 11:11; Admin Dose 1 TAB; Start 01/24/19 at 17:00 Lorazepam (Ativan) 0.5 mg Q6H PRN IV ANXIETY Last administered on 01/28/19 05:28; Admin Dose 0.5 MG; Start 01/24/19 at 21:00 Insulin Aspart (Novolog Insulin Pen) NOVOLOG *MILD* ALGORI... AC MEALS AND BEDTIME SC Last administered on 01/25/19 17:17; Admin Dose 1 UNIT; Start 01/25/19 at 17:35 Doxycycline Hyclate (Vibramycin) 100 mg BID PO Last administered on 01/28/19 08:07; Admin Dose 100 MG; Start 01/26/19 at 09:00 Ferric Sodium Gluconate Complex 125 mg/Sodium Chloride 110 ml @ 110 mls/hr DAILY@1300 IVPB Last administered on 01/27/19 14:05; Admin Dose 110 MLS/HR; Start 01/26/19 at 13:00; Stop 01/30/19 at 13:59 Nystatin (Nystatin Powder) 1 applic BID TOP Last administered on 01/28/19 08:08; Admin Dose 1 APPLIC; Start 01/27/19 at 21:00 Docusate Sodium (Colace) 100 mg BID PO Last administered on 01/28/19 08:11; Admin Dose 100 MG; Start 01/28/19 at 09:00 Sodium Hypochlorite (Dakins Diluted ()) 1 applic DAILY TP ; Start 01/28/19 at 09:40 SONAL ALBERT MD Jan 28, 2019 11:48
--- NOTE | 2019-01-28 13:36 | PN ---
Date/Time of Note Date/Time of Note DATE: 01/28/19 TIME: 13:32 Assessment/Plan Lines/Catheters [facility] Central Line Valadez in [facility] Yes Assessment/Plan Chief Complaint/Hosp Course 1. Pneumoperitoneum with probable perforated viscus. Previously family did not consent to proceeding to surgery. She has significantly improved. Extubated. Repeat CT without bowel perforation or leak rather ? bladder perforation, ? cholangitis. 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 UTI: / #2 -abx per sensitivity -frequent bladder emptying/cath care 4. Hypochromic anemia: Status post PRBC transfusion, H&H stable -Monitor and transfuse as needed 5. Sepsis, leukocytosis: Resolved -Supportive (antibiotics, fluids,etc) -As above 6. Multiple wounds: + Wound cultures -local care> added Dakin's -frequent turning and off-loading -low air loss mattress -vitamin c -short term zinc -optimize nutrition 7. Transaminitis: Likely 11/27 #5 -Trend 8. NSTEMI: -Cardiac optimization per cards Thank you. Patient seen and examined in collaboration with Dr. Osei Sanford. Subjective [address] cystogram pending. Tolerating soft diet. + Bowel function. No fevers, chills, sob, congested cough, cp, palpitations, keita, dizziness, nausea, vomiting, diarrhea, dysuria. Exam/Review of Systems Vital Signs Vitals Vital Signs Date Temp Pulse Resp B/P (MAP) Pulse Ox O2 O2 Flow FiO2 Time Delivery Rate 01/28/19 98.6 76 20 137/85 94 08:00 (102) 01/27/19 Room Air 14:40 Intake and Output 01/27/19 01/27/19 01/28/19 1515:00 23:00 07:00 IntakeIntake Total 810 ml 410 ml 200 ml OutputOutput Total 1000 ml 1200 ml 1650 ml BalanceBalance -190 ml -790 ml -1450 ml Exam Free Text/Dictation Constitutional: NAD, well developed; Psych: nl mood/affect, anxiety (Minimal) Head: normocephalic, atraumatic Eyes: nl conjunctiva, EOMI, nl lids, nl sclera ENMT: nl external ears & nose, no nl lips & teeth (poor dentition), mucosa pink and moist Neck: supple, non-tender; No jvd Respiratory: normal air movement; No congested cough, No labored breathing Cardiovascular: regular rate and rhythm, nl pulses; No edema Gastrointestinal: soft, non-distended, min tender, no rebound Genitourinary - Female: nl external genitalia Musculoskeletal: nl extremities to inspection, nl gait and stance Extremities: normal pulses Neurological: nl speech, no normal strength (generalized weakness) Skin: No rash or lesions Lymph: nl lymph nodes Results Result Diagram: 01/27/19 0529 01/27/19 0529 MASSIMO WATKINS NP Jan 28, 2019 13:36
[2019-01-28] MEDS: SOD FERRIC GLUC COMPLX 125 MG in SOD CHLORIDE 0.9% 100 ML IVPB SCH (13:58)
[2019-01-28 14:00] VITALS: BP 132/82; PULSE 84; RESP 20
[2019-01-28 20:31] VITALS: BP 159/90; PULSE 78; RESP 18
--- NOTE | 2019-01-28 21:19 | CONS ---
Consult Date/Type/Reason Admit Date/Time Jan 16, 2019 at 23:33 Initial Consult Date 01/17/19 Type of Consultation: Urology Reason for Consultation Possible colovesical fistula Requesting Provider: SONAL ALBERT MD Date/Time of Note DATE: 01/28/19 TIME: 21:17 Subjective Complaining of pain. Objective Vitals Vital Signs Date Temp Pulse Resp B/P (MAP) Pulse Ox O2 O2 Flow FiO2 Time Delivery Rate 01/28/19 98.1 78 18 159/90 98 20:31 (113) 01/27/19 Room Air 14:40 Intake and Output 01/27/19 01/27/19 01/28/19 1515:00 23:00 07:00 IntakeIntake Total 810 ml 410 ml 200 ml OutputOutput Total 1000 ml 1200 ml 1650 ml BalanceBalance -190 ml -790 ml -1450 ml Exam Patient is comfortable and keep complaining of pain and asking for her pain medications Results/Medications Result Diagram: 01/27/19 0529 01/27/19 0529 Results 24 hrs Laboratory Tests Test 01/28/19 07:58 01/28/19 12:23 01/28/19 17:23 01/28/19 21:10 Bedside Glucose 88 91 105 104 Home Meds Reported Medications Gabapentin* (Gabapentin*) 100 Mg Capsule, 100 MG PO TID, #90 CAP 01/20/18 Medications Current Medications Albuterol (Ventolin Hfa) 4 puff Q2H RESP THERAPY PRN INH SHORTNESS OF BREATH; Start 01/17/19 at 00:00 Ipratropium [place] (Atrovent Hfa) 4 puff Q2H RESP THERAPY PRN INH SHORTNESS OF BREATH; Start 01/17/19 at 00:00 Acetaminophen (Tylenol Liquid) 650 mg Q6H PRN PO PAIN LEVEL 1-3 OR FEVER; Start 01/17/19 at 00:00 Miscellaneous Information 1 ea NOTE XX ; Start 01/17/19 at 11:00 Glucose (Glutose) 15 gm Q15M PRN PO DECREASED GLUCOSE; Start 01/17/19 at 11:00 Glucose (Glutose) 22.5 gm Q15M PRN PO DECREASED GLUCOSE; Start 01/17/19 at 11:00 Dextrose (D50w Syringe) 25 ml Q15M PRN IV DECREASED GLUCOSE; Start 01/17/19 at 11:00 Dextrose (D50w Syringe) 50 ml Q15M PRN IV DECREASED GLUCOSE; Start 01/17/19 at 11:00 Glucagon (Glucagen) 1 mg Q15M PRN IM DECREASED GLUCOSE; Start 01/17/19 at 11:00 Glucose (Glutose) 15 gm Q15M PRN BUCCAL DECREASED GLUCOSE; Start 01/17/19 at 11:00 Famotidine (Pepcid Iv) 20 mg DAILY IV Last administered on 01/28/19 08:07; Admin Dose 20 MG; Start 01/18/19 at 09:00 Collagenase (Santyl) 1 applic DAILY TOP Last administered on 01/28/19 08:07; Admin Dose 1 APPLIC; Start 01/17/19 at 17:00 Morphine Sulfate (morphine) 1 mg Q3H PRN IV SEVERE PAIN LEVEL 7-10 Last administered on 01/23/19 12:54; Admin Dose 1 MG; Start 01/18/19 at 19:00 Piperacillin Sod/ Tazobactam Sod 100 ml @ 200 mls/hr Q6 IVPB Last administered on 01/28/19 17:24; Admin Dose 200 MLS/HR; Start 01/21/19 at 12:00 Carvedilol (Coreg) 3.125 mg BID PO Last administered on 01/28/19 08:08; Admin Dose 3.125 MG; Start 01/21/19 at 09:00 Hydralazine HCl (Apresoline) 10 mg Q4H PRN IV SBP >170 Last administered on 01/27/19 03:44; Admin Dose 10 MG; Start 01/21/19 at 14:30 Acetaminophen/ Hydrocodone Bitart ([place] (5/325)) 1 tab Q4H PRN PO MODERATE PAIN LEVEL 4-6 Last administered on 01/28/19 11:11; Admin Dose 1 TAB; Start 01/24/19 at 17:00 Lorazepam (Ativan) 0.5 mg Q6H PRN IV ANXIETY Last administered on 01/28/19 13:56; Admin Dose 0.5 MG; Start 01/24/19 at 21:00 Insulin Aspart (Novolog Insulin Pen) NOVOLOG *MILD* ALGORI... AC MEALS AND BEDTIME SC Last administered on 01/25/19 17:17; Admin Dose 1 UNIT; Start 01/25/19 at 17:35 Doxycycline Hyclate (Vibramycin) 100 mg BID PO Last administered on 01/28/19 08:07; Admin Dose 100 MG; Start 01/26/19 at 09:00 Ferric Sodium Gluconate Complex 125 mg/Sodium Chloride 110 ml @ 110 mls/hr DAILY@1300 IVPB Last administered on 01/28/19at 13:58; Admin Dose 110 MLS/HR; Start 01/26/19 at 13:00; Stop 01/30/19 at 13:59 Nystatin (Nystatin Powder) 1 applic BID TOP Last administered on 01/28/19at 08:08; Admin Dose 1 APPLIC; Start 01/27/19 at 21:00 Docusate Sodium (Colace) 100 mg BID PO Last administered on 01/28/19at 08:11; Admin Dose 100 MG; Start 01/28/19 at 09:00 Sodium Hypochlorite (Dakins Diluted ()) 1 applic DAILY TP ; Start 01/28/19 at 09:40 Assessment/Plan Hospital Course (Demo Recall) 58-year-old female with a past medical history of ambulatory dysfunction was found confused and weak by her sister at home. Patient was brought in via EMS and was noted to be confused but she was answering questions appropriately according to the ER doctor. Patient in the emergency department was also noted to be hypothermic and given her low GCS score patient was emergently intubated. She was found to have severe anemia with a hemoglobin of 2 along with lactic acidosis and renal failure. The patient was transfused and had a CT scan of the abdomen and pelvis that showed: 1. Pneumoperitoneum compatible with a perforated hollow viscus, the etiology of which is uncertain, severe constipation pattern is present. 2. Abnormal urinary bladder with a Valadez catheter and gas both within the bladder and the bladder wall unable to exclude emphysematous cystitis and possibly a fistula with the adjacent colon. An abscess anterior to the urinary bladder is the possibility on this exam limited by the lack of intravenous cont rast media. 3. Gallbladder distension with common bile duct dilatation but no evidence of calcified gallstones, findings of uncertain significance. 4. Gas is present within the right renal pelvis and right ureter for urinary tract infection with mild right hydroureter. 5. Mild splenomegaly. 6. Adrenal gland hyperplasia greater on the left. 7. Anasarca pattern. 8. Chronic T11 compression fracture deformity. Since then the patient has improved a lot and now she is eating. The Valadez catheter is draining clear urine. Repeat CT scan done on January 23, 2019 showed: 1. Focal thinning of the superior bladder wall concerning for bladder wall defect/injury. Small amount of air at the superior margin of the bladder near the defect, unclear if this is within the bladder or adjacent to the bladder. Correlate clinically. Consider further evaluation with cystoscopy. 2. No evidence of extraluminal contrast to suggest a bowel leak. 3. Small volume ascites. Small bilateral pleural effusions. Body wall edema. 4. Mild common bile duct dilatation measuring up to 9 mm. Possible common bile duct wall enhancement. Correlate for possible cholangitis. Correlate with serum bilirubin for possible biliary obstruction. If clinically indicated, consider further evaluation with MRCP with contrast. 5. Bladder wall thickening may be due to underdistension and generalized ascites. However, if there is clinical concern for acute cholecystitis, this may be further evaluated with ultrasound. This probably meant gallbladder 6. Mild irregular contour of the liver correlate for chronic liver disease. 7. Splenomegaly. Nonspecific small hyperdensities in the spleen, may represent cysts, hemangiomas, infection, or neoplasm. 8. Age-indeterminate mild compression deformity of T11 vertebral body, mildly increased compared to prior MRI spine on 01/21/2018. Because of the above findings on the CT scan I did order a CT cystogram to be done by filling up the bladder with contrast through the Valadez catheter. However the patient refused to have it done. I did talk to her and her daughter who was in her room and she now stating that she will do it. TINO RIVERA MD Jan 28, 2019 21:19
[2019-01-29 02:00] VITALS: BP 178/87; PULSE 85; RESP 20
[2019-01-29] MEDS: HYDROCODONE/APAP (5/325) TAB PO PRN ×3 (03:12→20:14)
[2019-01-29] MEDS: LORAZEPAM 2 MG INJ IV PRN ×4 (03:12→20:15)
[2019-01-29] MEDS: hydrALAzine 20 MG INJ IV PRN (03:33)
[2019-01-29 04:00] VITALS: BP 161/70
[2019-01-29] MEDS: PIPER-TAZO 3.375 GM IV (PMX) 100 ML IVPB SCH ×4 (05:35→23:02)
[2019-01-29 07:25] VITALS: BP 160/70; PULSE 85; RESP 16
[2019-01-29] MEDS: INSULIN ASPART [NOVOLOG] 3 ML PEN SC SCH ×4 (07:30→20:27)
[2019-01-29] MEDS: FAMOTIDINE 20 MG INJ IV SCH (09:00)
[2019-01-29] MEDS: DOXYCYCLINE 100 MG TAB PO SCH ×2 (09:00→20:14)
[2019-01-29] MEDS: DOCUSATE SODIUM 100 MG CAP PO SCH ×2 (09:00→20:14)
[2019-01-29] MEDS: COLLAGENASE 5 GM (UD JAR) TOP SCH (09:01)
[2019-01-29] MEDS: NYSTATIN 30 GM POWDER BTL TOP SCH ×2 (09:02→20:16)
[2019-01-29] MEDS: BALSAM PERU/CASTOR OIL 60 GM TUBE TOP SCH ×2 (09:02→20:16)
[2019-01-29] MEDS: DAKINS 0.0125%(1/40) 473 ML SOLUTION TP SCH (09:03)
--- NOTE | 2019-01-29 10:22 | PSY ---
Date/Time of Note Date/Time of Note DATE: 01/29/19 TIME: 10:17 Psychiatric Subjective Eval Consent Pt consented to telemedicine: No Subjective Evaluation Patient location: inpatient Chief Complaint: [id number] from home,found lethargic,hx paraplegic History of present illness Patient is a 58-year-old female with a past history depression who was found confused and weak by her sister at home. [id number] evaluation, patient states that she is feeling depressed she denies suicidal ideation states she just wants to sleep and was not ready to answer any further questions. Risk and benefits of antidepressant Celexa explained the patient did not respond, just wanted to be left alone to sleep Past psychiatric history History of depression per patient with no treatment Medical history Problems Medical Problems: (1) Acute encephalopathy Status: Acute (2) Acute renal failure Status: Acute (3) Acute respiratory failure Status: Acute (4) Anemia Status: Acute (5) Back pain Status: Acute (6) Leukocytosis Status: Acute (7) Metabolic acidosis Status: Acute (8) MODS (multiple organ dysfunction syndrome) Status: Acute (9) NSTEMI (non-ST elevated myocardial infarction) Status: Acute (10) Pyelonephritis Status: Acute (11) Septic shock Status: Acute (12) Severe anemia Status: Acute (13) Weakness Status: Acute Allergies: Coded Allergies: Penicillins (Verified Allergy, Unknown, 01/20/18) Substance Abuse Substance abuse history: No Prior substance abuse treatmen: No Social History Marital status: other DPA/Conservatorship: No Psychiatric Objective Eval Review of Systems: Review of Systems: Not Applicable Physical Examination: Physical Examination: Not Applicable Mental Status Examination: Appearance: Disheveled Psychomotor Activity: Normal Behavior: Cooperative Speech: Soft AFFECT: Flat Mood: Depressed Though Process: Linear Orientation: x4 Insight: Intact Judgement: Mild Attention Span: Distractible Laboratory Results Laboratory Tests Test 01/27/19 12:06 01/27/19 17:26 01/27/19 20:45 01/28/19 07:58 Bedside Glucose 108 mg/dL 114 mg/dL 99 mg/dL 88 mg/dL Test 01/28/19 12:23 01/28/19 17:23 01/28/19 21:10 01/29/19 04:50 Bedside Glucose 91 mg/dL 105 mg/dL 104 mg/dL Erythrocyte 32 mm/Hr Sedimentation Rate Test 01/29/19 08:16 Bedside Glucose 87 mg/dL Assessment and Plan Assessment/Diagnosis Diagnosis Major depressive disorder severe recurrent without psychosis Recommendation/Plan Medication Management Celexa 10 mg daily Psychotherapy Provide supportive therapy Discharge Disposition: Other Legal Status: Voluntary (Does not meet criteria for 5150 hold) KERWIN CELIS NP Jan 29, 2019 10:22
[2019-01-29 14:45] VITALS: BP 150/70; PULSE 90; RESP 16
[2019-01-29] MEDS: SOD FERRIC GLUC COMPLX 125 MG in SOD CHLORIDE 0.9% 100 ML IVPB SCH (14:57)
--- NOTE | 2019-01-29 15:08 | CONS ---
Consult Date/Type/Reason Admit Date/Time Jan 16, 2019 at 23:33 Initial Consult Date 01/17/19 Type of Consultation: Urology Reason for Consultation Enterovesical fistula Requesting Provider: SONAL ALBERT MD Date/Time of Note DATE: 01/29/19 TIME: 15:06 Subjective Patient complains of generalized pain mostly in her lower extremities. Objective Vitals Vital Signs Date Temp Pulse Resp B/P (MAP) Pulse Ox O2 O2 Flow FiO2 Time Delivery Rate 01/29/19 99.0 90 16 150/70 97 Room Air 14:45 (96) Intake and Output 01/28/19 01/28/19 01/29/19 1414:59 22:59 06:59 IntakeIntake Total 670 ml 210 ml 460 ml OutputOutput Total 500 ml 2000 ml 1500 ml BalanceBalance 170 ml -1790 ml -1040 ml Exam Patient does have multiple bedsores. Results/Medications Result Diagram: 01/27/19 0529 01/29/19 0449 Results 24 hrs Laboratory Tests Test 01/28/19 17:23 01/28/19 21:10 01/29/19 04:49 01/29/19 04:50 Bedside Glucose 105 104 Sodium Level 136 Potassium Level 3.6 Chloride Level 107 Carbon Dioxide Level 20 L Anion Gap 9 Blood Urea Nitrogen 17 Creatinine 0.99 Est Glomerular Filtrat 58 L Rate mL/min Glucose Level 76 Calcium Level 8.7 Erythrocyte 32 H Sedimentation Rate Test 01/29/19 08:16 01/29/19 12:03 Bedside Glucose 87 130 Home Meds Reported Medications Gabapentin* (Gabapentin*) 100 Mg Capsule, 100 MG PO TID, #90 CAP 01/20/18 Medications Current Medications Albuterol (Ventolin Hfa) 4 puff Q2H RESP THERAPY PRN INH SHORTNESS OF BREATH; Start 01/17/19 at 00:00 Ipratropium [place] (Atrovent Hfa) 4 puff Q2H RESP THERAPY PRN INH SHORTNESS OF BREATH; Start 01/17/19 at 00:00 Acetaminophen (Tylenol Liquid) 650 mg Q6H PRN PO PAIN LEVEL 1-3 OR FEVER; Start 01/17/19 at 00:00 Miscellaneous Information 1 ea NOTE XX ; Start 01/17/19 at 11:00 Glucose (Glutose) 15 gm Q15M PRN PO DECREASED GLUCOSE; Start 01/17/19 at 11:00 Glucose (Glutose) 22.5 gm Q15M PRN PO DECREASED GLUCOSE; Start 01/17/19 at 11:00 Dextrose (D50w Syringe) 25 ml Q15M PRN IV DECREASED GLUCOSE; Start 01/17/19 at 11:00 Dextrose (D50w Syringe) 50 ml Q15M PRN IV DECREASED GLUCOSE; Start 01/17/19 at 11:00 Glucagon (Glucagen) 1 mg Q15M PRN IM DECREASED GLUCOSE; Start 01/17/19 at 11:00 Glucose (Glutose) 15 gm Q15M PRN BUCCAL DECREASED GLUCOSE; Start 01/17/19 at 11:00 Famotidine (Pepcid Iv) 20 mg DAILY IV Last administered on 01/29/19 09:00; Admin Dose 20 MG; Start 01/18/19 at 09:00 Collagenase (Santyl) 1 applic DAILY TOP Last administered on 01/29/19 09:01; Admin Dose 1 APPLIC; Start 01/17/19 at 17:00 Morphine Sulfate (morphine) 1 mg Q3H PRN IV SEVERE PAIN LEVEL 7-10 Last administered on 01/23/19 12:54; Admin Dose 1 MG; Start 01/18/19 at 19:00 Piperacillin Sod/ Tazobactam Sod 100 ml @ 200 mls/hr Q6 IVPB Last administered on 01/29/19 11:57; Admin Dose 200 MLS/HR; Start 01/21/19 at 12:00 Carvedilol (Coreg) 3.125 mg BID PO Last administered on 01/29/19 09:01; Admin Dose 3.125 MG; Start 01/21/19 at 09:00 Hydralazine HCl (Apresoline) 10 mg Q4H PRN IV SBP >170 Last administered on 01/29/19 03:33; Admin Dose 10 MG; Start 01/21/19 at 14:30 Acetaminophen/ Hydrocodone Bitart ([place] (5/325)) 1 tab Q4H PRN PO MODERATE PAIN LEVEL 4-6 Last administered on 01/29/19 03:12; Admin Dose 1 TAB; Start 01/24/19 at 17:00 Lorazepam (Ativan) 0.5 mg Q6H PRN IV ANXIETY Last administered on 01/29/19 09:04; Admin Dose 0.5 MG; Start 01/24/19 at 21:00 Insulin Aspart (Novolog Insulin Pen) NOVOLOG *MILD* ALGORI... AC MEALS AND BEDTIME SC Last administered on 01/25/19 17:17; Admin Dose 1 UNIT; Start 01/25/19 at 17:35 Doxycycline Hyclate (Vibramycin) 100 mg BID PO Last administered on 01/29/19 09:00; Admin Dose 100 MG; Start 01/26/19 at 09:00 Ferric Sodium Gluconate Complex 125 mg/Sodium Chloride 110 ml @ 110 mls/hr DAILY@1300 IVPB Last administered on 01/28/19 13:58; Admin Dose 110 MLS/HR; Start 01/26/19 at 13:00; Stop 01/30/19 at 13:59 Nystatin (Nystatin Powder) 1 applic BID TOP Last administered on 01/29/19 09:02; Admin Dose 1 APPLIC; Start 01/27/19 at 21:00 Docusate Sodium (Colace) 100 mg BID PO Last administered on 01/29/19 09:00; Admin Dose 100 MG; Start 01/28/19 at 09:00 Sodium Hypochlorite (Dakins Diluted ()) 1 applic DAILY TP Last administered on 01/29/19 09:03; Admin Dose 1 APPLIC; Start 01/28/19 at 09:40 Assessment/Plan Hospital Course (Demo Recall) 58-year-old female with a past medical history of ambulatory dysfunction was found confused and weak by her sister at home. Patient was brought in via EMS and was noted to be confused but she was answering questions appropriately according to the ER doctor. Patient in the emergency department was also noted to be hypothermic and given her low GCS score patient was emergently intubated. She was found to have severe anemia with a hemoglobin of 2 along with lactic acidosis and renal failure. The patient was transfused and had a CT scan of the abdomen and pelvis that showed: 1. Pneumoperitoneum compatible with a perforated hollow viscus, the etiology of which is uncertain, severe constipation pattern is present. 2. Abnormal urinary bladder with a Valadez catheter and gas both within the bladder and the bladder wall unable to exclude emphysematous cystitis and possibly a fistula with the adjacent colon. An abscess anterior to the urinary bladder is the possibility on this exam limited by the lack of intravenous contrast media. 3. Gallbladder distension with common bile duct dilatation but no evidence of calcified gallstones, findings of uncertain significance. 4. Gas is present within the right renal pelvis and right ureter for urinary tract infection with mild right hydroureter. 5. Mild splenomegaly. 6. Adrenal gland hyperplasia greater on the left. 7. Anasarca pattern. 8. Chronic T11 compression fracture deformity. Since then the patient has improved a lot and now she is eating. The Valadez catheter is draining clear urine. Repeat CT scan done on January 23, 2019 showed: 1. Focal thinning of the superior bladder wall concerning for bladder wall defect/injury. Small amount of air at the superior margin of the bladder near the defect, unclear if this is within the bladder or adjacent to the bladder. Correlate clinically. Consider further evaluation with cystoscopy. 2. No evidence of extraluminal contrast to suggest a bowel leak. 3. Small volume ascites. Small bilateral pleural effusions. Body wall edema. 4. Mild common bile duct dilatation measuring up to 9 mm. Possible common bile duct wall enhancement. Correlate for possible cholangitis. Correlate with serum bilirubin for possible biliary obstruction. If clinically indicated, consider further evaluation with MRCP with contrast. 5. Bladder wall thickening may be due to underdistension and generalized asci satish. However, if there is clinical concern for acute cholecystitis, this may be further evaluated with ultrasound. This probably meant gallbladder 6. Mild irregular contour of the liver correlate for chronic liver disease. 7. Splenomegaly. Nonspecific small hyperdensities in the spleen, may represent cysts, hemangiomas, infection, or neoplasm. 8. Age-indeterminate mild compression deformity of T11 vertebral body, mildly increased compared to prior MRI spine on 01/21/2018. Because of the above findings on the CT scan I did order a CT cystogram to be done by filling up the bladder with contrast through the Valadez catheter. However the patient refused to have it done. I did talk to her on 01/28/2019 and her daughter who was in her room at that time and she stated that she will do it. I will reorder the CT cystogram for Thursday. TINO RIVERA MD Jan 29, 2019 15:08
--- NOTE | 2019-01-29 15:12 | CONS ---
Assessment/Plan Assessment/Plan Assessment/Plan (Daily) #Anemia- Hgb trended upto 9.5 today -patient's initial Hg of 2.6 was likely secondary to GIB and perforated viscous. Stool ob negative. -anemia panel is consistent with iron deficiency -continue Ferrlecit 125 mg IV x 5 days #Sepsis -continue antibiotics #Perforated viscous -continue conservative management per surgery #JACKIE- BUN/Cr - 17/0.99 wnl -renal following -Creatinine improved- wnl Patient seen in collaboration with Dr Laura. Consultation Date/Type/Reason Admit Date/Time Jan 16, 2019 at 23:33 Initial Consult Date 01/25/19 Type of Consult Hematology Reason for Consultation Anemia Requesting Provider: SONAL ALBERT MD Date/Time of Note DATE: 01/29/19 TIME: 15:10 24 HR Interval Summary Free Text/Dictation Hgb 9.5 as of 01/28/19 resting; denies any chest pain no new events reported las night per staff Detailed Summary Eyes: no complaints ENT: no complaints Respiratory: no complaints Cardiovascular: no complaints Gastrointestinal: pain Genitourinary: no complaints Musculoskeletal: no complaints Skin: no complaints Neurologic: no complaints Endocrine: no complaints Lymphatic: no complaints Psychological: nl mood/affect Exam/Review of Systems Exam Vitals Vital Signs Date Temp Pulse Resp B/P (MAP) Pulse Ox O2 O2 Flow FiO2 Time Delivery Rate 01/29/19 99.0 90 16 150/70 97 Room Air 14:45 (96) Intake and Output 01/28/19 01/28/19 01/29/19 1414:59 22:59 06:59 IntakeIntake Total 670 ml 210 ml 460 ml OutputOutput Total 500 ml 2000 ml 1500 ml BalanceBalance 170 ml -1790 ml -1040 ml Constitutional: alert, well developed Psych: nl mood/affect Head: atraumatic Eyes: nl lids, nl sclera ENMT: nl external ears & nose Neck: non-tender Respiratory: diminished breath sounds Cardiovascular: nl pulses, other (s1ss2) Gastrointestinal: soft, tender (diffuse tenderness) Musculoskeletal: nl extremities to inspection Extremities: normal pulses Neurological: nl speech, other (alert/responsie) Skin: nl turgor Lymph: nontender Results Result Diagram: 01/27/19 0529 01/29/19 0449 Results 24hrs Laboratory Tests Test 01/28/19 17:23 01/28/19 21:10 01/29/19 04:49 01/29/19 04:50 Bedside Glucose 105 104 Sodium Level 136 Potassium Level 3.6 Chloride Level 107 Carbon Dioxide Level 20 L Anion Gap 9 Blood Urea Nitrogen 17 Creatinine 0.99 Est Glomerular Filtrat 58 L Rate mL/min Glucose Level 76 Calcium Level 8.7 Erythrocyte 32 H Sedimentation Rate Test 01/29/19 08:16 01/29/19 12:03 Bedside Glucose 87 130 Medications Medication Current Medications Albuterol (Ventolin Hfa) 4 puff Q2H RESP THERAPY PRN INH SHORTNESS OF BREATH; Start 01/17/19 at 00:00 Ipratropium [place] (Atrovent Hfa) 4 puff Q2H RESP THERAPY PRN INH SHORTNESS OF BREATH; Start 01/17/19 at 00:00 Acetaminophen (Tylenol Liquid) 650 mg Q6H PRN PO PAIN LEVEL 1-3 OR FEVER; Start 01/17/19 at 00:00 Miscellaneous Information 1 ea NOTE XX ; Start 01/17/19 at 11:00 Glucose (Glutose) 15 gm Q15M PRN PO DECREASED GLUCOSE; Start 01/17/19 at 11:00 Glucose (Glutose) 22.5 gm Q15M PRN PO DECREASED GLUCOSE; Start 01/17/19 at 11:00 Dextrose (D50w Syringe) 25 ml Q15M PRN IV DECREASED GLUCOSE; Start 01/17/19 at 11:00 Dextrose (D50w Syringe) 50 ml Q15M PRN IV DECREASED GLUCOSE; Start 01/17/19 at 11:00 Glucagon (Glucagen) 1 mg Q15M PRN IM DECREASED GLUCOSE; Start 01/17/19 at 11:00 Glucose (Glutose) 15 gm Q15M PRN BUCCAL DECREASED GLUCOSE; Start 01/17/19 at 11:00 Famotidine (Pepcid Iv) 20 mg DAILY IV Last administered on 01/29/19at 09:00; Admin Dose 20 MG; Start 01/18/19 at 09:00 Collagenase (Santyl) 1 applic DAILY TOP Last administered on 01/29/19at 09:01; Admin Dose 1 APPLIC; Start 01/17/19 at 17:00 Morphine Sulfate (morphine) 1 mg Q3H PRN IV SEVERE PAIN LEVEL 7-10 Last administered on 01/23/19at 12:54; Admin Dose 1 MG; Start 01/18/19 at 19:00 Piperacillin Sod/ Tazobactam Sod 100 ml @ 200 mls/hr Q6 IVPB Last administered on 01/29/19 11:57; Admin Dose 200 MLS/HR; Start 01/21/19 at 12:00 Carvedilol (Coreg) 3.125 mg BID PO Last administered on 01/29/19 09:01; Admin Dose 3.125 MG; Start 01/21/19 at 09:00 Hydralazine HCl (Apresoline) 10 mg Q4H PRN IV SBP >170 Last administered on 01/29/19 03:33; Admin Dose 10 MG; Start 01/21/19 at 14:30 Acetaminophen/ Hydrocodone Bitart ([place] (5/325)) 1 tab Q4H PRN PO MODERATE PAIN LEVEL 4-6 Last administered on 01/29/19 15:02; Admin Dose 1 TAB; Start 01/24/19 at 17:00 Lorazepam (Ativan) 0.5 mg Q6H PRN IV ANXIETY Last administered on 01/29/19 15:02; Admin Dose 0.5 MG; Start 01/24/19 at 21:00 Insulin Aspart (Novolog Insulin Pen) NOVOLOG *MILD* ALGORI... AC MEALS AND BEDTIME SC Last administered on 01/25/19 17:17; Admin Dose 1 UNIT; Start 01/25/19 at 17:35 Doxycycline Hyclate (Vibramycin) 100 mg BID PO Last administered on 01/29/19 09:00; Admin Dose 100 MG; Start 01/26/19 at 09:00 Ferric Sodium Gluconate Complex 125 mg/Sodium Chloride 110 ml @ 110 mls/hr DAILY@1300 IVPB Last administered on 01/29/19 14:57; Admin Dose 110 MLS/HR; Start 01/26/19 at 13:00; Stop 01/30/19 at 13:59 Nystatin (Nystatin Powder) 1 applic BID TOP Last administered on 01/29/19 09:02; Admin Dose 1 APPLIC; Start 01/27/19 at 21:00 Docusate Sodium (Colace) 100 mg BID PO Last administered on 01/29/19 09:00; Admin Dose 100 MG; Start 01/28/19 at 09:00 Sodium Hypochlorite (Dakins Diluted ()) 1 applic DAILY TP Last administered on 01/29/19at 09:03; Admin Dose 1 APPLIC; Start 01/28/19 at 09:40 SHELBIE MARTINES Jan 29, 2019 15:12
--- NOTE | 2019-01-29 18:34 | PN ---
Date/Time of Note Date/Time of Note DATE: 01/29/19 TIME: 18:32 Assessment/Plan VTE Prophylaxis Risk score (from Nsg)>0 risk: 7 SCD applied (from Nsg): Yes Pharmacological prophylaxis: heparin Lines/Catheters IV Catheter Type (from Nrsg): Central Line Central line still needed: Yes Urinary Cath still in place: Yes Reason Cath still needed: urinary retention Assessment/Plan Hospital Course 59 yo female with chronic debility and leg weakness who presented with sepsis, severe anemia, and perforated viscus Sepsis: - Shock resolved, continue abx per ID Peforated viscus: - management per surgery - abx Hip AVN vs OM: - Abx per ID Colovesicular fistula: - Per urology, no need for surgical intervention at this time. Awaiting CT pyelogram to assess - Continue may Macrocytic anemia secondary to elevated reticulocyte count - Status post 4 units of packed red blood cells - stable Iron deficiency: - IV iron Acute kidney injury secondary to severe septic shock-improving - Renal function improved to baseline Prophylaxis: SCDs, Protonix Discharge planning; To [facility] when workup/management completed Result Diagram: 01/27/19 0529 01/29/19 0449 Results 24hrs Laboratory Tests Test 01/28/19 21:10 01/29/19 04:49 01/29/19 04:50 01/29/19 08:16 Bedside Glucose 104 87 Sodium Level 136 Potassium Level 3.6 Chloride Level 107 Carbon Dioxide Level 20 L Anion Gap 9 Blood Urea Nitrogen 17 Creatinine 0.99 Est Glomerular Filtrat 58 L Rate mL/min Glucose Level 76 Calcium Level 8.7 Erythrocyte 32 H Sedimentation Rate Test 01/29/19 12:03 01/29/19 18:15 Bedside Glucose 130 139 Subjective 24 Hr Interval Summary Free Text/Dictation No complaints No change to clinical status Exam/Review of Systems Exam Vitals Vital Signs Date Temp Pulse Resp B/P (MAP) Pulse Ox O2 O2 Flow FiO2 Time Delivery Rate 01/29/19 99.0 90 16 150/70 97 Room Air 14:45 (96) Intake and Output 01/28/19 01/28/19 01/29/19 1515:00 23:00 07:00 IntakeIntake Total 780 ml 100 ml 460 ml OutputOutput Total 500 ml 2000 ml 1500 ml BalanceBalance 280 ml -1900 ml -1040 ml Results Results 24hrs Laboratory Tests Test 01/28/19 21:10 01/29/19 04:49 01/29/19 04:50 01/29/19 08:16 Bedside Glucose 104 87 Sodium Level 136 Potassium Level 3.6 Chloride Level 107 Carbon Dioxide Level 20 L Anion Gap 9 Blood Urea Nitrogen 17 Creatinine 0.99 Est Glomerular Filtrat 58 L Rate mL/min Glucose Level 76 Calcium Level 8.7 Erythrocyte 32 H Sedimentation Rate Test 01/29/19 12:03 01/29/19 18:15 Bedside Glucose 130 139 Medications Medication Current Medications Albuterol (Ventolin Hfa) 4 puff Q2H RESP THERAPY PRN INH SHORTNESS OF BREATH; Start 01/17/19 at 00:00 Ipratropium [place] (Atrovent Hfa) 4 puff Q2H RESP THERAPY PRN INH SHORTNESS OF BREATH; Start 01/17/19 at 00:00 Acetaminophen (Tylenol Liquid) 650 mg Q6H PRN PO PAIN LEVEL 1-3 OR FEVER; Start 01/17/19 at 00:00 Miscellaneous Information 1 ea NOTE XX ; Start 01/17/19 at 11:00 Glucose (Glutose) 15 gm Q15M PRN PO DECREASED GLUCOSE; Start 01/17/19 at 11:00 Glucose (Glutose) 22.5 gm Q15M PRN PO DECREASED GLUCOSE; Start 01/17/19 at 11:00 Dextrose (D50w Syringe) 25 ml Q15M PRN IV DECREASED GLUCOSE; Start 01/17/19 at 11:00 Dextrose (D50w Syringe) 50 ml Q15M PRN IV DECREASED GLUCOSE; Start 01/17/19 at 11:00 Glucagon (Glucagen) 1 mg Q15M PRN IM DECREASED GLUCOSE; Start 01/17/19 at 11:00 Glucose (Glutose) 15 gm Q15M PRN BUCCAL DECREASED GLUCOSE; Start 01/17/19 at 11:00 Famotidine (Pepcid Iv) 20 mg DAILY IV Last administered on 01/29/19at 09:00; Admin Dose 20 MG; Start 01/18/19 at 09:00 Collagenase (Santyl) 1 applic DAILY TOP Last administered on 01/29/19at 09:01; Admin Dose 1 APPLIC; Start 01/17/19 at 17:00 Morphine Sulfate (morphine) 1 mg Q3H PRN IV SEVERE PAIN LEVEL 7-10 Last administered on 01/23/19 12:54; Admin Dose 1 MG; Start 01/18/19 at 19:00 Piperacillin Sod/ Tazobactam Sod 100 ml @ 200 mls/hr Q6 IVPB Last administered on 01/29/19 18:24; Admin Dose 200 MLS/HR; Start 01/21/19 at 12:00 Carvedilol (Coreg) 3.125 mg BID PO Last administered on 01/29/19 09:01; Admin Dose 3.125 MG; Start 01/21/19 at 09:00 Hydralazine HCl (Apresoline) 10 mg Q4H PRN IV SBP >170 Last administered on 01/29/19 03:33; Admin Dose 10 MG; Start 01/21/19 at 14:30 Acetaminophen/ Hydrocodone Bitart ([place] (5/325)) 1 tab Q4H PRN PO MODERATE PAIN LEVEL 4-6 Last administered on 01/29/19 15:02; Admin Dose 1 TAB; Start 01/24/19 at 17:00 Lorazepam (Ativan) 0.5 mg Q6H PRN IV ANXIETY Last administered on 01/29/19 15:02; Admin Dose 0.5 MG; Start 01/24/19 at 21:00 Insulin Aspart (Novolog Insulin Pen) NOVOLOG *MILD* ALGORI... AC MEALS AND BEDTIME SC Last administered on 01/25/19 17:17; Admin Dose 1 UNIT; Start 01/25/19 at 17:35 Doxycycline Hyclate (Vibramycin) 100 mg BID PO Last administered on 01/29/19 09:00; Admin Dose 100 MG; Start 01/26/19 at 09:00 Ferric Sodium Gluconate Complex 125 mg/Sodium Chloride 110 ml @ 110 mls/hr DAILY@1300 IVPB Last administered on 01/29/19 14:57; Admin Dose 110 MLS/HR; Start 01/26/19 at 13:00; Stop 01/30/19 at 13:59 Nystatin (Nystatin Powder) 1 applic BID TOP Last administered on 01/29/19 09:02; Admin Dose 1 APPLIC; Start 01/27/19 at 21:00 Docusate Sodium (Colace) 100 mg BID PO Last administered on 01/29/19 09:00; Admin Dose 100 MG; Start 01/28/19 at 09:00 Sodium Hypochlorite (Dakins Diluted ()) 1 applic DAILY TP Last administered on 01/29/19at 09:03; Admin Dose 1 APPLIC; Start 01/28/19 at 09:40 SONAL ALBERT MD Jan 29, 2019 18:34
--- NOTE | 2019-01-29 19:44 | PN ---
Date/Time of Note Date/Time of Note DATE: 01/29/19 TIME: 19:40 Assessment/Plan Lines/Catheters IV Catheter Type (from [facility] Central Line Valadez in Place (from [facility]): Yes Assessment/Plan Chief Complaint/Hosp Course 1. Pneumoperitoneum with probable perforated viscus. Previously family did not consent to proceeding to surgery. She has significantly improved. Extubated. Repeat CT without bowel perforation or leak rather ? bladder perforation, ? cholangitis. -Supportive measures -Diet as tolerated -Pain management -Urology> pending CT cystogram 2. UTI: 2/2 #2 -abx per sensitivity -frequent bladder emptying/cath care 3. Hypochromic anemia: Status post PRBC transfusion, H&H stable -Monitor and transfuse as needed 4. Multiple wounds: + Wound cultures -local care> added Dakin's -frequent turning and off-loading -low air loss mattress -vitamin c -short term zinc -optimize nutrition 5. Transaminitis: Likely 2/ #5 -Trend 6. NSTEMI: -Cardiac optimization>per cards Thank you. Patient seen and examined in collaboration with Dr. Osei Sanford. Subjective 24 Hr Interval Summary Pending CT cystogram. No fevers, chills, sob, congested cough, cp, palpitations, keita, dizziness, n/v/d/dysuria. +bowel function. Exam/Review of Systems Vital Signs Vitals Vital Signs Date Temp Pulse Resp B/P (MAP) Pulse Ox O2 O2 Flow FiO2 Time Delivery Rate 01/29/19 99.0 90 16 150/70 97 Room Air 14:45 (96) Intake and Output 01/28/19 01/28/19 01/29/19 1515:00 23:00 07:00 IntakeIntake Total 780 ml 100 ml 460 ml OutputOutput Total 500 ml 2000 ml 1500 ml BalanceBalance 280 ml -1900 ml -1040 ml Exam Free Text/Dictation Constitutional: NAD, well developed; Psych: nl mood/affect, anxiety (Minimal) Head: normocephalic, atraumatic Eyes: nl conjunctiva, EOMI, nl lids, nl sclera ENMT: nl external ears & nose, no nl lips & teeth (poor dentition), mucosa pink and moist Neck: supple, non-tender; No jvd Respiratory: normal air movement; No congested cough, No labored breathing Cardiovascular: regular rate and rhythm, nl pulses; No edema Gastrointestinal: soft, non-distended, min tender, no rebound Genitourinary - Female: nl external genitalia Musculoskeletal: nl extremities to inspection, nl gait and stance Extremities: normal pulses Neurological: nl speech, no normal strength (generalized weakness) Skin: No rash or lesions Lymph: nl lymph nodes Results Result Diagram: 01/27/19 0529 01/29/19 0449 MASSIMO WATKINS NP Jan 29, 2019 19:44
[2019-01-29 20:00] VITALS: BP 145/70; PULSE 91; RESP 18
[2019-01-30] MEDS: HYDROCODONE/APAP (5/325) TAB PO PRN ×4 (01:57→17:30)
[2019-01-30 02:00] VITALS: BP 136/71; PULSE 84; RESP 18
[2019-01-30] MEDS: LORAZEPAM 2 MG INJ IV PRN ×3 (02:54→21:09)
--- NOTE | 2019-01-30 05:19 | CONS ---
Assessment/Plan Assessment/Plan Assessment/Plan (Daily) #Anemia- Hgb trended upto 9.5 -patient's initial Hg of 2.6 was likely secondary to GIB and perforated viscous. Stool ob negative. -anemia panel is consistent with iron deficiency -continue Ferrlecit 125 mg IV x 5 days #Sepsis -continue antibiotics #Perforated viscous -continue conservative management per surgery #JACKIE- BUN/Cr - 17/0.99 wnl -renal following -Creatinine improved Consultation Date/Type/Reason Admit Date/Time Jan 16, 2019 at 23:33 Initial Consult Date 01/25/19 Requesting Provider: SONAL ALBERT MD Date/Time of Note DATE: 01/30/19 TIME: 05:19 24 HR Interval Summary Free Text/Dictation Hgb 9.5 as of 01/28 resting; denies any chest pain; abdominal pain no new events reported las night per staff Detailed Summary Eyes: no complaints ENT: no complaints Respiratory: no complaints Cardiovascular: no complaints Gastrointestinal: no complaints Genitourinary: no complaints Musculoskeletal: no complaints Skin: no complaints Neurologic: no complaints Endocrine: no complaints Lymphatic: no complaints Psychological: nl mood/affect Immunologic: no complaints Exam/Review of Systems Exam Vitals Vital Signs Date Temp Pulse Resp B/P (MAP) Pulse Ox O2 O2 Flow FiO2 Time Delivery Rate 01/30/19 98.6 84 18 136/71 97 02:00 (92) 01/29/19 Room Air 14:45 Intake and Output 01/29/19 01/29/19 01/30/19 1515:00 23:00 07:00 IntakeIntake Total 100 ml 560 ml OutputOutput Total 1200 ml BalanceBalance 100 ml -640 ml Constitutional: alert, well developed Psych: nl mood/affect Head: atraumatic Eyes: nl lids, nl sclera ENMT: nl external ears & nose Neck: non-tender Respiratory: diminished breath sounds Cardiovascular: nl pulses, other (s1s2) Gastrointestinal: soft, non-tender Musculoskeletal: nl extremities to inspection Neurological: nl speech, other (alert/responsive) Skin: nl turgor Lymph: nontender Results Result Diagram: 01/27/19 0529 01/29/19 0449 Results 24hrs Laboratory Tests Test 01/29/19 08:16 01/29/19 12:03 01/29/19 18:15 01/29/19 20:26 Bedside Glucose 87 130 139 139 Test 01/30/19 04:37 White Blood Count Pending Red Blood Count Pending Hemoglobin Pending Hematocrit Pending Mean Corpuscular Volume Pending Mean Corpuscular Pending Hemoglobin Mean Corpuscular Pending Hemoglobin Concent Red Cell Distribution Pending Width Platelet Count Pending Mean Platelet Volume Pending Medications Medication Current Medications Albuterol (Ventolin Hfa) 4 puff Q2H RESP THERAPY PRN INH SHORTNESS OF BREATH; Start 01/17/19 at 00:00 Ipratropium [place] (Atrovent Hfa) 4 puff Q2H RESP THERAPY PRN INH SHORTNESS OF BREATH; Start 01/17/19 at 00:00 Acetaminophen (Tylenol Liquid) 650 mg Q6H PRN PO PAIN LEVEL 1-3 OR FEVER; Start 01/17/19 at 00:00 Miscellaneous Information 1 ea NOTE XX ; Start 01/17/19 at 11:00 Glucose (Glutose) 15 gm Q15M PRN PO DECREASED GLUCOSE; Start 01/17/19 at 11:00 Glucose (Glutose) 22.5 gm Q15M PRN PO DECREASED GLUCOSE; Start 01/17/19 at 11:00 Dextrose (D50w Syringe) 25 ml Q15M PRN IV DECREASED GLUCOSE; Start 01/17/19 at 11:00 Dextrose (D50w Syringe) 50 ml Q15M PRN IV DECREASED GLUCOSE; Start 01/17/19 at 11:00 Glucagon (Glucagen) 1 mg Q15M PRN IM DECREASED GLUCOSE; Start 01/17/19 at 11:00 Glucose (Glutose) 15 gm Q15M PRN BUCCAL DECREASED GLUCOSE; Start 01/17/19 at 11:00 Famotidine (Pepcid Iv) 20 mg DAILY IV Last administered on 01/29/19at 09:00; Admin Dose 20 MG; Start 01/18/19 at 09:00 Collagenase (Santyl) 1 applic DAILY TOP Last administered on 01/29/19at 09:01; Admin Dose 1 APPLIC; Start 01/17/19 at 17:00 Morphine Sulfate (morphine) 1 mg Q3H PRN IV SEVERE PAIN LEVEL 7-10 Last administered on 01/23/19at 12:54; Admin Dose 1 MG; Start 01/18/19 at 19:00 Piperacillin Sod/ Tazobactam Sod 100 ml @ 200 mls/hr Q6 IVPB Last administered on 01/29/19 23:02; Admin Dose 200 MLS/HR; Start 01/21/19 at 12:00 Carvedilol (Coreg) 3.125 mg BID PO Last administered on 01/29/19 20:15; Admin Dose 3.125 MG; Start 01/21/19 at 09:00 Hydralazine HCl (Apresoline) 10 mg Q4H PRN IV SBP >170 Last administered on 01/29/19 03:33; Admin Dose 10 MG; Start 01/21/19 at 14:30 Acetaminophen/ Hydrocodone Bitart ([place] (5/325)) 1 tab Q4H PRN PO MODERATE PAIN LEVEL 4-6 Last administered on 01/30/19 01:57; Admin Dose 1 TAB; Start 01/24/19 at 17:00 Lorazepam (Ativan) 0.5 mg Q6H PRN IV ANXIETY Last administered on 01/30/19 02:54; Admin Dose 0.5 MG; Start 01/24/19 at 21:00 Doxycycline Hyclate (Vibramycin) 100 mg BID PO Last administered on 01/29/19 20:14; Admin Dose 100 MG; Start 01/26/19 at 09:00 Ferric Sodium Gluconate Complex 125 mg/Sodium Chloride 110 ml @ 110 mls/hr DAILY@1300 IVPB Last administered on 01/29/19 14:57; Admin Dose 110 MLS/HR; Start 01/26/19 at 13:00; Stop 01/30/19 at 13:59 Nystatin (Nystatin Powder) 1 applic BID TOP Last administered on 01/29/19 20:16; Admin Dose 1 APPLIC; Start 01/27/19 at 21:00 Docusate Sodium (Colace) 100 mg BID PO Last administered on 01/29/19 20:14; Admin Dose 100 MG; Start 01/28/19 at 09:00 Sodium Hypochlorite (Dakins Diluted ()) 1 applic DAILY TP Last administered on 01/29/19 09:03; Admin Dose 1 APPLIC; Start 01/28/19 at 09:40 Citalopram Hydrobromide (Celexa) 10 mg DAILY PO ; Start 01/30/19 at 09:00 Insulin Aspart (Novolog Insulin Pen) NOVOLOG *MILD* ALGORITHM WITH MEALS BEDTIME SC ; Start 01/30/19 at 08:00 Diagnostic Test (Pha) (Accu-Chek) 1 XX ; Start 01/31/19 at 02:00 SHELBIE MARTINES Jan 30, 2019 05:19
[2019-01-30] MEDS: PIPER-TAZO 3.375 GM IV (PMX) 100 ML IVPB SCH ×3 (05:32→17:32)
[2019-01-30] MEDS: INSULIN ASPART [NOVOLOG] 3 ML PEN SC SCH ×4 (08:00→21:08)
[2019-01-30] MEDS: DOCUSATE SODIUM 100 MG CAP PO SCH ×2 (08:18→21:10)
[2019-01-30] MEDS: DOXYCYCLINE 100 MG TAB PO SCH ×2 (08:18→21:10)
[2019-01-30] MEDS: FAMOTIDINE 20 MG INJ IV SCH (08:18)
[2019-01-30] MEDS: COLLAGENASE 5 GM (UD JAR) TOP SCH (08:19)
[2019-01-30] MEDS: NYSTATIN 30 GM POWDER BTL TOP SCH ×2 (08:20→21:17)
[2019-01-30] MEDS: BALSAM PERU/CASTOR OIL 60 GM TUBE TOP SCH ×2 (08:20→21:17)
[2019-01-30] MEDS: CITALOPRAM 20 MG TAB PO SCH (08:23)
[2019-01-30 08:46] VITALS: BP 177/85; PULSE 87; RESP 18
[2019-01-30] MEDS: DAKINS 0.0125%(1/40) 473 ML SOLUTION TP SCH (09:00)
[2019-01-30] MEDS: SOD FERRIC GLUC COMPLX 125 MG in SOD CHLORIDE 0.9% 100 ML IVPB SCH (12:56)
[2019-01-30 14:00] VITALS: BP 155/84; PULSE 80; RESP 18
--- NOTE | 2019-01-30 16:48 | PN ---
Date/Time of Note Date/Time of Note DATE: 01/30/19 TIME: 16:48 Assessment/Plan VTE Prophylaxis Risk score (from Nsg)>0 risk: 6 SCD applied (from Nsg): Yes Pharmacological prophylaxis: heparin Lines/Catheters IV Catheter Type (from Nrsg): Central Line Central line still needed: Yes Urinary Cath still in place: Yes Reason Cath still needed: urinary retention Assessment/Plan Hospital Course 59 yo female with chronic debility and leg weakness who presented with sepsis, severe anemia, and perforated viscus Sepsis: - Shock resolved, continue abx per ID Peforated viscus: - management per surgery - abx Hip AVN vs OM: - Abx per ID Colovesicular fistula: - Per urology, no need for surgical intervention at this time. Awaiting CT pyelogram to assess - Continue may Macrocytic anemia secondary to elevated reticulocyte count - Status post 4 units of packed red blood cells - stable Iron deficiency: - IV iron Acute kidney injury secondary to severe septic shock-improving - Renal function improved to baseline Prophylaxis: SCDs, Protonix Discharge planning; To [facility] when workup/management completed Result Diagram: 01/30/19 0437 01/29/19 0449 Results 24hrs Laboratory Tests Test 01/29/19 18:15 01/29/19 20:26 01/30/19 04:37 01/30/19 08:15 Bedside Glucose 139 139 85 White Blood Count 4.4 #L Red Blood Count 2.85 L Hemoglobin 8.3 L Hematocrit 25.0 L Mean Corpuscular Volume 87.7 Mean Corpuscular 29.1 Hemoglobin Mean Corpuscular 33.2 Hemoglobin Concent Red Cell Distribution 15.8 H Width Platelet Count 195 # Mean Platelet Volume 10.0 Immature Granulocytes % 0.200 Neutrophils % 50.7 Lymphocytes % 33.6 Monocytes % 10.7 Eosinophils % 3.4 Basophils % 1.4 Nucleated Red Blood 0.0 Cells % Immature Granulocytes # 0.010 Neutrophils # 2.2 Lymphocytes # 1.5 Monocytes # 0.5 Eosinophils # 0.2 Basophils # 0.1 Nucleated Red Blood 0.0 Cells # Test 01/30/19 11:57 Bedside Glucose 202 Subjective 24 Hr Interval Summary Free Text/Dictation No change to clinical status She is comfortable Awaiting CT pyelogram Exam/Review of Systems Exam Vitals Vital Signs Date Temp Pulse Resp B/P (MAP) Pulse Ox O2 O2 Flow FiO2 Time Delivery Rate 01/30/19 98.6 87 18 177/85 98 Room Air 08:46 (115) Intake and Output 01/29/19 01/29/19 01/30/19 1515:00 23:00 07:00 IntakeIntake Total 100 ml 560 ml 600 ml OutputOutput Total 1200 ml 1300 ml BalanceBalance 100 ml -640 ml -700 ml Constitutional: alert, oriented, well developed Psych: no complaints, nl mood/affect Head: normocephalic, atraumatic Eyes: nl conjunctiva, EOMI, nl lids, nl sclera, PERRL ENMT: nl external ears & nose, nl lips & teeth, nl nasal mucosa & septum Neck: supple, non-tender Respiratory: clear to auscultation, normal air movement Cardiovascular: regular rate and rhythm, nl pulses Gastrointestinal: soft, nl liver, spleen, non-tender Musculoskeletal: nl extremities to inspection, nl gait and stance Extremities: normal pulses Neurological: REDUCER II-XII intact, nl mental status, nl speech, nl strength Skin: nl turgor; No rash or lesions Lymph: nl lymph nodes Results Results 24hrs Laboratory Tests Test 01/29/19 18:15 01/29/19 20:26 01/30/19 04:37 01/30/19 08:15 Bedside Glucose 139 139 85 White Blood Count 4.4 #L Red Blood Count 2.85 L Hemoglobin 8.3 L Hematocrit 25.0 L Mean Corpuscular Volume 87.7 Mean Corpuscular 29.1 Hemoglobin Mean Corpuscular 33.2 Hemoglobin Concent Red Cell Distribution 15.8 H Width Platelet Count 195 # Mean Platelet Volume 10.0 Immature Granulocytes % 0.200 Neutrophils % 50.7 Lymphocytes % 33.6 Monocytes % 10.7 Eosinophils % 3.4 Basophils % 1.4 Nucleated Red Blood 0.0 Cells % Immature Granulocytes # 0.010 Neutrophils # 2.2 Lymphocytes # 1.5 Monocytes # 0.5 Eosinophils # 0.2 Basophils # 0.1 Nucleated Red Blood 0.0 Cells # Test 01/30/19 11:57 Bedside Glucose 202 Medications Medication Current Medications Albuterol (Ventolin Hfa) 4 puff Q2H RESP THERAPY PRN INH SHORTNESS OF BREATH; Start 01/17/19 at 00:00 Ipratropium [place] (Atrovent Hfa) 4 puff Q2H RESP THERAPY PRN INH SHORTNESS OF BREATH; Start 01/17/19 at 00:00 Acetaminophen (Tylenol Liquid) 650 mg Q6H PRN PO PAIN LEVEL 1-3 OR FEVER; Start 01/17/19 at 00:00 Miscellaneous Information 1 ea NOTE XX ; Start 01/17/19 at 11:00 Glucose (Glutose) 15 gm Q15M PRN PO DECREASED GLUCOSE; Start 01/17/19 at 11:00 Glucose (Glutose) 22.5 gm Q15M PRN PO DECREASED GLUCOSE; Start 01/17/19 at 11:00 Dextrose (D50w Syringe) 25 ml Q15M PRN IV DECREASED GLUCOSE; Start 01/17/19 at 11:00 Dextrose (D50w Syringe) 50 ml Q15M PRN IV DECREASED GLUCOSE; Start 01/17/19 at 11:00 Glucagon (Glucagen) 1 mg Q15M PRN IM DECREASED GLUCOSE; Start 01/17/19 at 11:00 Glucose (Glutose) 15 gm Q15M PRN BUCCAL DECREASED GLUCOSE; Start 01/17/19 at 11:00 Famotidine (Pepcid Iv) 20 mg DAILY IV Last administered on 01/30/19 08:18; Admin Dose 20 MG; Start 01/18/19 at 09:00 Collagenase (Santyl) 1 applic DAILY TOP Last administered on 01/30/19 08:19; Admin Dose 1 APPLIC; Start 01/17/19 at 17:00 Morphine Sulfate (morphine) 1 mg Q3H PRN IV SEVERE PAIN LEVEL 7-10 Last administered on 01/23/19at 12:54; Admin Dose 1 MG; Start 01/18/19 at 19:00 Piperacillin Sod/ Tazobactam Sod 100 ml @ 200 mls/hr Q6 IVPB Last administered on 01/30/19 12:49; Admin Dose 200 MLS/HR; Start 01/21/19 at 12:00 Carvedilol (Coreg) 3.125 mg BID PO Last administered on 01/30/19 08:18; Admin Dose 3.125 MG; Start 01/21/19 at 09:00 Hydralazine HCl (Apresoline) 10 mg Q4H PRN IV SBP >170 Last administered on 01/29/19at 03:33; Admin Dose 10 MG; Start 01/21/19 at 14:30 Acetaminophen/ Hydrocodone Bitart ([place] (5/325)) 1 tab Q4H PRN PO MODERATE PAIN LEVEL 4-6 Last administered on 01/30/19 12:51; Admin Dose 1 TAB; Start 01/24/19 at 17:00 Lorazepam (Ativan) 0.5 mg Q6H PRN IV ANXIETY Last administered on 01/30/19 12:52; Admin Dose 0.5 MG; Start 01/24/19 at 21:00 Doxycycline Hyclate (Vibramycin) 100 mg BID PO Last administered on 01/30/19 08:18; Admin Dose 100 MG; Start 01/26/19 at 09:00 Nystatin (Nystatin Powder) 1 applic BID TOP Last administered on 01/30/19 08:20; Admin Dose 1 APPLIC; Start 01/27/19 at 21:00 Docusate Sodium (Colace) 100 mg BID PO Last administered on 01/30/19 08:18; Admin Dose 100 MG; Start 01/28/19 at 09:00 Sodium Hypochlorite (Dakins Diluted (40)) 1 applic DAILY TP Last administered on 01/30/19 09:00; Admin Dose 1 APPLIC; Start 01/28/19 at 09:40 Citalopram Hydrobromide (Celexa) 10 mg DAILY PO Last administered on 01/30/19 08:23; Admin Dose 10 MG; Start 01/30/19 at 09:00 Insulin Aspart (Novolog Insulin Pen) NOVOLOG *MILD* ALGORITHM WITH MEALS BEDTIME SC Last administered on 01/30/19 12:48; Admin Dose 2 UNIT; Start 01/30/19 at 08:00 Diagnostic Test (Pha) (Accu-Chek) 1 ea 02 XX ; Start 01/31/19 at 02:00 SONAL ALBERT MD Jan 30, 2019 16:48
--- NOTE | 2019-01-30 16:52 | PN ---
Date/Time of Note Date/Time of Note DATE: 01/30/19 TIME: 16:40 Assessment/Plan Lines/Catheters IV Catheter Type (from [facility]): Central Line Valadez in Place (from [facility]): Yes Assessment/Plan Chief Complaint/Hosp Course 1. Pneumoperitoneum with probable perforated viscus. Previously family did not consent to proceeding to surgery. She has significantly improved. Extubated. Repeat CT without bowel perforation or leak rather ? bladder perforation, ? cholangitis. -Supportive measures -Diet as tolerated -Pain management -Urology> pending CT cystogram 2. UTI: 2/ #2 -abx per sensitivity -frequent bladder emptying/cath care 3. Hypochromic anemia: Status post PRBC transfusion, H&H stable -Monitor and transfuse as needed 4. Multiple wounds: + Wound cultures -local care> added Dakin's -frequent turning and off-loading -low air loss mattress -vitamin c -short term zinc -optimize nutrition 5. Transaminitis: Likely 2/ #5 -Trend 6. NSTEMI: -Cardiac optimization>per cards Thank you. Patient seen and examined in collaboration with Dr. Osei Sanford. Subjective 24 Hr Interval Summary + Bowel function. Minimal abdominal discomfort. Tolerating solid diet. No fevers, chills, sob, congested cough, cp, palpitations, keita, dizziness, nausea, vomiting, diarrhea, dysuria. Exam/Review of Systems Vital Signs Vitals Vital Signs Date Temp Pulse Resp B/P (MAP) Pulse Ox O2 O2 Flow FiO2 Time Delivery Rate 01/30/19 98.6 87 18 177/85 98 Room Air 08:46 (115) Intake and Output 01/29/19 01/29/19 01/30/19 1515:00 23:00 07:00 IntakeIntake Total 100 ml 560 ml 600 ml OutputOutput Total 1200 ml 1300 ml BalanceBalance 100 ml -640 ml -700 ml Exam Free Text/Dictation Constitutional: NAD, well developed; Psych: nl mood/affect, anxiety Head: normocephalic, atraumatic Eyes: nl conjunctiva, EOMI, nl lids, nl sclera ENMT: nl external ears & nose, no nl lips & teeth (poor dentition), mucosa pink and moist Neck: supple, non-tender; No jvd Respiratory: normal air movement; No congested cough, No labored breathing Cardiovascular: regular rate and rhythm, nl pulses; No edema Gastrointestinal: soft, non-distended, min tender, no rebound Genitourinary - Female: nl external genitalia Musculoskeletal: nl extremities to inspection, nl gait and stance Extremities: normal pulses Neurological: nl speech, no normal strength (generalized weakness) Skin: No rash or lesions, left hip wound: packed, scant drainage Lymph: nl lymph nodes Results Result Diagram: 01/30/19 0437 01/29/19 0449 MASSIMO WATKINS NP Jan 30, 2019 16:51
[2019-01-30 21:28] VITALS: BP 151/76; PULSE 76; RESP 18
[2019-01-31] MEDS: PIPER-TAZO 3.375 GM IV (PMX) 100 ML IVPB SCH ×4 (00:10→17:44)
[2019-01-31] MEDS: HYDROCODONE/APAP (5/325) TAB PO PRN ×3 (00:20→23:16)
[2019-01-31] MEDS: ACCU-CHEK XX SCH (02:02)
[2019-01-31 02:42] VITALS: BP 159/73; PULSE 97; RESP 16
[2019-01-31] MEDS: LORAZEPAM 2 MG INJ IV PRN ×3 (05:37→20:25)
--- NOTE | 2019-01-31 07:38 | CONS ---
Assessment/Plan Assessment/Plan Hospital Course (Demo Recall) 1) pneumoperitoneum and sepsis could be related to pt taking motrin for some pain continue with vanco/zosyn at present to renally dose them await decision by family regarding surgery vs hospice 01/18 - continue with vanco/zosyn CoNS in blood, only one bottle, likely represents contamination e.coli in urine is sensitive to the zosyn pt has EtOH abuse lactic acid has normalized 01/19 - MRSA in nasal area, likely perf is gastric or duodenal to continue with vanco at present and zosyn decrease in platelets noted, may need to change vanco if trend continues 01/20 - no significant change a.m. labs are pending due to blood tx overnight on vanco/zosyn pt has GNR in blood cx, ID is pending but sensitive to zosyn 01/21 - increase dose of zosyn as renal function is further improved awaits CT abd/pelv repeat to see if pt can start to eat alcaligenes was also in blood cx and is a stool bacteria 01/22 - pt passed swallow eval for oral contrast, but CT is still pending continue with vanco/zosyn at present 01/24 - await CT results, pt has tolerated clear liquids though on vanco/zosyn to continue at present pt will need zosyn thru 01/29/19 at least (pt will need eval for possible L hip osteo and if present will need a longer course of the zosyn when pt on full orals will change vanco to doxycycline 01/26 - continue with zosyn, change vanco to doxycycline 01/27 - stable and eating soft foods without difficulty pt to get CT cystogram to see if pt has fistula from bladder 01/31 - pt is eating well without abd pain CT cystogram is pending consider pain management team consult 2)severe anemia pt is being transfused only smears of stool since admission to get hemoccult 01/18 - Hgb is more stable 01/19 - drop in Hgb again, will need blood tx again 01/20 - pt tx again, a.m. labs are pending 01/21 - Hgb is at 9 now 01/22 - Hgb is stable 01/28 - Hgb remains stable 3) ARF with pyuria and hematuria (e.coli in urine) improving with hydration and blood tx await urine cx results 01/18 - improving urine output and creatinine urine cx has e.coli that is sensitive to zosyn renal u/s suggests hydro on the R and possible renal clot or debris on L 01/19 - further improvement in creatinine on zosyn for e.coli in urine 01/21 - further improvement in renal function 01/22 - creatinine almost normal 01/24 - creatinine has normalized while on vanco 4) elevated troponins likely due to stress from severe anemia 5) hepatitis again likely due to sepsis and severe anemia check hep serologies 01/18 - hep serologies are pending 01/19 - neg hep serologies and HIV LFT's are trending down 6) L hip eschar/decubitus unstageable wound cx was ordered 01/18 - wound cx has not been done, nurse was informed 01/19 - wound cx was obtained and is pending 01/20 - wound cx has GPC growing 01/21 - MRSA in wound cx from hip, continue with vanco at present platelets are improving 01/22 - MRSA and alcaligenes was in wound cx ESR is extremely high, pt will likely need MRI of L hip area to see if osteomyelitis is present when pt is more stable 01/24 - when pt is eating will order MRI of L hip to see if osteo is present (pt has deep ulcer there and very high ESR) continue vanco/zosyn at present 01/26 - I will order MRI with contrast to L hip area on zosyn/doxy now 01/28 - MRI done and shows probable septic arthritis and possible early osteo I would continue with doxy/zosyn for 4 week regimen (thru 02/12/19) ESR was greatly improved (too improved?), to repeat ESR in a.m. 01/31 - doubt pt has AVN of hip but more likely infection given depth of ulcer the same area ESR is much improved since admission continue with zosyn/doxy thru 02/12/19 7) hypoalbuminemia pt came in with low albumin, she has likely been sick or not eating well for a while 8) CoNS bacteremia 01/18 - only one bottle has CoNS, likely this is contamination continue with vanco at present, await final wound cx results 9) decrease in platelets 01/19 - consider change of vanco if trend continues 01/20 - her MRSA is sensitive to doxy so could change vanco to that 01/21 - platelets are improved 01/22 - platelets are WNL 10) GNR in original blood cx (alcaligenes faecalis) 01/20 - ID is pending but it is sensitive to zosyn 01/21 - alcaligenes is a stool bacteria and likely related to her peritonitis continue with zosyn 01/22 - alcaligines was also in wound cx when pt is eating and more stable will order MRI of L hip to verify no osteo or abscess is present 01/24 - pt will need at least zosyn thru 01/29, longer if osteo of L hip is present 11) LE weakness consider re-consult with surgeon who did the surgery last year Consultation Date/Type/Reason Admit Date/Time Jan 16, 2019 at 23:33 Initial Consult Date 01/17/19 Type of Consult ID Requesting Provider: SONAL ALBERT MD Date/Time of Note DATE: 01/31/19 TIME: 07:31 24 HR Interval Summary Free Text/Dictation pt states 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 she is able to move her legs though she also states she doesn't feel her pain control is being managed well enough no N, V, D Exam/Review of Systems Exam Vitals Vital Signs Date Temp Pulse Resp B/P (MAP) Pulse Ox O2 O2 Flow FiO2 Time Delivery Rate 01/31/19 98.5 97 16 159/73 96 02:42 (101) 01/30/19 Room Air 14:00 Intake and Output 01/30/19 01/30/19 01/31/19 1515:00 23:00 07:00 IntakeIntake Total 1240 ml 500 ml 200 ml OutputOutput Total 1600 ml 1300 ml BalanceBalance 1240 ml -1100 ml -1100 ml Constitutional: alert ENMT: mucosa pink and moist Respiratory: clear to auscultation Cardiovascular: regular rate and rhythm Gastrointestinal: soft, non-tender Results Result Diagram: 01/30/19 0437 01/29/19 0449 Results 24hrs Laboratory Tests Test 01/30/19 08:15 01/30/19 11:57 01/30/19 17:26 01/30/19 21:04 Bedside Glucose 85 202 133 207 Test 01/31/19 01:49 Bedside Glucose 119 Medications Medication Current Medications Albuterol (Ventolin Hfa) 4 puff Q2H RESP THERAPY PRN INH SHORTNESS OF BREATH; Start 01/17/19 at 00:00 Ipratropium [place] (Atrovent Hfa) 4 puff Q2H RESP THERAPY PRN INH SHORTNESS OF BREATH; Start 01/17/19 at 00:00 Acetaminophen (Tylenol Liquid) 650 mg Q6H PRN PO PAIN LEVEL 1-3 OR FEVER; Start 01/17/19 at 00:00 Miscellaneous Information 1 ea NOTE XX ; Start 01/17/19 at 11:00 Glucose (Glutose) 15 gm Q15M PRN PO DECREASED GLUCOSE; Start 01/17/19 at 11:00 Glucose (Glutose) 22.5 gm Q15M PRN PO DECREASED GLUCOSE; Start 01/17/19 at 11:00 Dextrose (D50w Syringe) 25 ml Q15M PRN IV DECREASED GLUCOSE; Start 01/17/19 at 11:00 Dextrose (D50w Syringe) 50 ml Q15M PRN IV DECREASED GLUCOSE; Start 01/17/19 at 11:00 Glucagon (Glucagen) 1 mg Q15M PRN IM DECREASED GLUCOSE; Start 01/17/19 at 11:00 Glucose (Glutose) 15 gm Q15M PRN BUCCAL DECREASED GLUCOSE; Start 01/17/19 at 11:00 Famotidine (Pepcid Iv) 20 mg DAILY IV Last administered on 01/30/19at 08:18; Admin Dose 20 MG; Start 01/18/19 at 09:00 Collagenase (Santyl) 1 applic DAILY TOP Last administered on 01/30/19at 08:19; Admin Dose 1 APPLIC; Start 01/17/19 at 17:00 Morphine Sulfate (morphine) 1 mg Q3H PRN IV SEVERE PAIN LEVEL 7-10 Last administered on 01/23/19at 12:54; Admin Dose 1 MG; Start 01/18/19 at 19:00 Piperacillin Sod/ Tazobactam Sod 100 ml @ 200 mls/hr Q6 IVPB Last administered on 01/31/19at 05:37; Admin Dose 200 MLS/HR; Start 01/21/19 at 12:00 Carvedilol (Coreg) 3.125 mg BID PO Last administered on 01/30/19at 21:11; Admin Dose 3.125 MG; Start 01/21/19 at 09:00 Hydralazine HCl (Apresoline) 10 mg Q4H PRN IV SBP >170 Last administered on 03:33; Admin Dose 10 MG; Start 01/21/19 at 14:30 Acetaminophen/ Hydrocodone Bitart ([place] (5/325)) 1 tab Q4H PRN PO MODERATE PAIN LEVEL 4-6 Last administered on 01/31/19 00:20; Admin Dose 1 TAB; Start 01/24/19 at 17:00 Lorazepam (Ativan) 0.5 mg Q6H PRN IV ANXIETY Last administered on 01/31/19 05:37; Admin Dose 0.5 MG; Start 01/24/19 at 21:00 Doxycycline Hyclate (Vibramycin) 100 mg BID PO Last administered on 01/30/19 21:10; Admin Dose 100 MG; Start 01/26/19 at 09:00 Nystatin (Nystatin Powder) 1 applic BID TOP Last administered on 01/30/19 21:17; Admin Dose 1 APPLIC; Start 01/27/19 at 21:00 Docusate Sodium (Colace) 100 mg BID PO Last administered on 01/30/19 21:10; Admin Dose 100 MG; Start 01/28/19 at 09:00 Sodium Hypochlorite (Dakins Diluted (40)) 1 applic DAILY TP Last administered on 01/30/19 09:00; Admin Dose 1 APPLIC; Start 01/28/19 at 09:40 Citalopram Hydrobromide (Celexa) 10 mg DAILY PO Last administered on 01/30/19 08:23; Admin Dose 10 MG; Start 01/30/19 at 09:00 Insulin Aspart (Novolog Insulin Pen) NOVOLOG *MILD* ALGORITHM WITH MEALS BEDTIME SC Last administered on 01/30/19 21:08; Admin Dose 1 UNIT; Start 01/30/19 at 08:00 Diagnostic Test (Pha) (Accu-Chek) 1 ea 02 XX Last administered on 01/31/19 02:02; Admin Dose 1 EA; Start 01/31/19 at 02:00 PATSY LEVY MD Jan 31, 2019 07:38
[2019-01-31] MEDS: INSULIN ASPART [NOVOLOG] 3 ML PEN SC SCH ×4 (08:00→20:37)
[2019-01-31] MEDS: NYSTATIN 30 GM POWDER BTL TOP SCH ×2 (08:12→20:23)
[2019-01-31] MEDS: COLLAGENASE 5 GM (UD JAR) TOP SCH (08:12)
[2019-01-31] MEDS: BALSAM PERU/CASTOR OIL 60 GM TUBE TOP SCH ×2 (08:13→20:23)
[2019-01-31] MEDS: DOXYCYCLINE 100 MG TAB PO SCH ×2 (08:15→20:22)
[2019-01-31] MEDS: DOCUSATE SODIUM 100 MG CAP PO SCH ×2 (08:15→20:22)
[2019-01-31] MEDS: CITALOPRAM 20 MG TAB PO SCH (08:16)
[2019-01-31] MEDS: FAMOTIDINE 20 MG INJ IV SCH (08:16)
--- NOTE | 2019-01-31 08:25 | CONS ---
Consult Date/Type/Reason Admit Date/Time Jan 16, 2019 at 23:33 Initial Consult Date 01/17/19 Type of Consultation: Urology Reason for Consultation Possible colovesical fistula Requesting Provider: SONAL ALBERT MD Date/Time of Note DATE: 01/31/19 TIME: 08:23 Subjective Patient is comfortable and her pain is less. Objective Vitals Vital Signs Date Temp Pulse Resp B/P (MAP) Pulse Ox O2 O2 Flow FiO2 Time Delivery Rate 01/31/19 98.5 97 16 159/73 96 02:42 (101) 01/30/19 Room Air 14:00 Intake and Output 01/30/19 01/30/19 01/31/19 1515:00 23:00 07:00 IntakeIntake Total 1240 ml 500 ml 200 ml OutputOutput Total 1600 ml 1300 ml BalanceBalance 1240 ml -1100 ml -1100 ml Exam The Valadez catheter is draining clear urine Results/Medications Result Diagram: 01/30/19 0437 01/29/19 0449 Results 24 hrs Laboratory Tests Test 01/30/19 11:57 01/30/19 17:26 01/30/19 21:04 01/31/19 01:49 Bedside Glucose 202 133 207 119 Home Meds Reported Medications Gabapentin* (Gabapentin*) 100 Mg Capsule, 100 MG PO TID, #90 CAP 01/20/18 Medications Current Medications Albuterol (Ventolin Hfa) 4 puff Q2H RESP THERAPY PRN INH SHORTNESS OF BREATH; Start 01/17/19 at 00:00 Ipratropium [place] (Atrovent Hfa) 4 puff Q2H RESP THERAPY PRN INH SHORTNESS OF BREATH; Start 01/17/19 at 00:00 Acetaminophen (Tylenol Liquid) 650 mg Q6H PRN PO PAIN LEVEL 1-3 OR FEVER; Start 01/17/19 at 00:00 Miscellaneous Information 1 ea NOTE XX ; Start 01/17/19 at 11:00 Glucose (Glutose) 15 gm Q15M PRN PO DECREASED GLUCOSE; Start 01/17/19 at 11:00 Glucose (Glutose) 22.5 gm Q15M PRN PO DECREASED GLUCOSE; Start 01/17/19 at 11:00 Dextrose (D50w Syringe) 25 ml Q15M PRN IV DECREASED GLUCOSE; Start 01/17/19 at 11:00 Dextrose (D50w Syringe) 50 ml Q15M PRN IV DECREASED GLUCOSE; Start 01/17/19 at 11:00 Glucagon (Glucagen) 1 mg Q15M PRN IM DECREASED GLUCOSE; Start 01/17/19 at 11:00 Glucose (Glutose) 15 gm Q15M PRN BUCCAL DECREASED GLUCOSE; Start 01/17/19 at 11:00 Famotidine (Pepcid Iv) 20 mg DAILY IV Last administered on 01/31/19 08:16; Admin Dose 20 MG; Start 01/18/19 at 09:00 Collagenase (Santyl) 1 applic DAILY TOP Last administered on 01/31/19 08:12; Admin Dose 1 APPLIC; Start 01/17/19 at 17:00 Morphine Sulfate (morphine) 1 mg Q3H PRN IV SEVERE PAIN LEVEL 7-10 Last administered on 01/23/19 12:54; Admin Dose 1 MG; Start 01/18/19 at 19:00 Piperacillin Sod/ Tazobactam Sod 100 ml @ 200 mls/hr Q6 IVPB Last administered on 01/31/19 05:37; Admin Dose 200 MLS/HR; Start 01/21/19 at 12:00 Carvedilol (Coreg) 3.125 mg BID PO Last administered on 01/31/19 08:22; Admin Dose 3.125 MG; Start 01/21/19 at 09:00 Hydralazine HCl (Apresoline) 10 mg Q4H PRN IV SBP >170 Last administered on 01/29/19 03:33; Admin Dose 10 MG; Start 01/21/19 at 14:30 Acetaminophen/ Hydrocodone Bitart ([place] (5/325)) 1 tab Q4H PRN PO MODERATE PAIN LEVEL 4-6 Last administered on 01/31/19 00:20; Admin Dose 1 TAB; Start 01/24/19 at 17:00 Lorazepam (Ativan) 0.5 mg Q6H PRN IV ANXIETY Last administered on 01/31/19 05:37; Admin Dose 0.5 MG; Start 01/24/19 at 21:00 Doxycycline Hyclate (Vibramycin) 100 mg BID PO Last administered on 01/31/19 08:15; Admin Dose 100 MG; Start 01/26/19 at 09:00 Nystatin (Nystatin Powder) 1 applic BID TOP Last administered on 01/31/19 08:12; Admin Dose 1 APPLIC; Start 01/27/19 at 21:00 Docusate Sodium (Colace) 100 mg BID PO Last administered on 01/31/19 08:15; Admin Dose 100 MG; Start 01/28/19 at 09:00 Sodium Hypochlorite (Dakins Diluted ()) 1 applic DAILY TP Last administered on 01/30/19 09:00; Admin Dose 1 APPLIC; Start 01/28/19 at 09:40 Citalopram Hydrobromide (Celexa) 10 mg DAILY PO Last administered on 01/31/19 08:16; Admin Dose 10 MG; Start 01/30/19 at 09:00 Insulin Aspart (Novolog Insulin Pen) NOVOLOG *MILD* ALGORITHM WITH MEALS BEDTIME SC Last administered on 01/30/19 21:08; Admin Dose 1 UNIT; Start 01/30/19 at 08:00 Diagnostic Test (Pha) (Accu-Chek) 1 ea 02 XX Last administered on 01/31/19 02:02; Admin Dose 1 EA; Start 01/31/19 at 02:00 Assessment/Plan Hospital Course (Demo Recall) 58-year-old female with a past medical history of ambulatory dysfunction was found confused and weak by her sister at home. Patient was brought in via EMS and was noted to be confused but she was answering questions appropriately according to the ER doctor. Patient in the emergency department was also noted to be hypothermic and given her low GCS score patient was emergently intubated. She was found to have severe anemia with a hemoglobin of 2 along with lactic acidosis and renal failure. The patient was transfused and had a CT scan of the abdomen and pelvis that showed: 1. Pneumoperitoneum compatible with a perforated hollow viscus, the etiology of which is uncertain, severe constipation pattern is present. 2. Abnormal urinary bladder with a Valadez catheter and gas both within the bladder and the bladder wall unable to exclude emphysematous cystitis and possibly a fistula with the adjacent colon. An abscess anterior to the urinary bladder is the possibility on this exam limited by the lack of intravenous contrast media. 3. Gallbladder distension with common bile duct dilatation but no evidence of calcified gallstones, findings of uncertain significance. 4. Gas is present within the right renal pelvis and right ureter for urinary tract infection with mild right hydroureter. 5. Mild splenomegaly. 6. Adrenal gland hyperplasia greater on the left. 7. Anasarca pattern. 8. Chronic T11 compression fracture deformity. Since then the patient has improved a lot and now she is eating. The Valadez catheter is draining clear urine. Repeat CT scan done on January 23, 2019 showed: 1. Focal thinning of the superior bladder wall concerning for bladder wall defect/injury. Small amount of air at the superior margin of the bladder near the defect, unclear if this is within the bladder or adjacent to the bladder. Correlate clinically. Consider further evaluation with cystoscopy. 2. No evidence of extraluminal contrast to suggest a bowel leak. 3. Small volume ascites. Small bilateral pleural effusions. Body wall edema. 4. Mild common bile duct dilatation measuring up to 9 mm. Possible common bile duct wall enhancement. Correlate for possible cholangitis. Correlate with serum bilirubin for possible biliary obstruction. If clinically indicated, consider further evaluation with MRCP with contrast. 5. Bladder wall thickening may be due to underdistension and generalized ascites. However, if there is clinical concern for acute cholecystitis, this may be further evaluated with ultrasound. This probably meant gallbladder 6. Mild irregular contour of the liver correlate for chronic liver disease. 7. Splenomegaly. Nonspecific small hyperdensities in the spleen, may represent c ysts, hemangiomas, infection, or neoplasm. 8. Age-indeterminate mild compression deformity of T11 vertebral body, mildly increased compared to prior MRI spine on 01/21/2018. Because of the above findings on the CT scan I did order a CT cystogram to be done by filling up the bladder with contrast through the Valadez catheter. She is going to have the CT cystogram this morning. TINO RIVERA MD Jan 31, 2019 08:25
[2019-01-31 08:44] VITALS: BP 168/87; PULSE 81; RESP 18
[2019-01-31] MEDS ORDERED: IOHEXOL 300MG/ML 30 ML BTL ONE ×2 (09:53→09:54)
[2019-01-31] MEDS: DAKINS 0.0125%(1/40) 473 ML SOLUTION TP SCH (09:54)
[2019-01-31] MEDS ORDERED: SOD CHLORIDE 0.9% 500 ML ONE (09:54)
--- NOTE | 2019-01-31 10:22 | CONS ---
Assessment/Plan Assessment/Plan Hospital Course (Demo Recall) #Anemia -patient's initial Hg of 2.6 was likely secondary to GIB and perforated viscous. Stool ob at that time was negative. -anemia panel is consistent with iron deficiency -s/p Ferrlecit 125 mg IV x 5 days -Hg did drop to 8.6. will continue to monitor #Sepsis -continue antibiotics #Perforated viscous -continue conservative management per surgery #JACKIE -renal following -Creatine improving Consultation Date/Type/Reason Admit Date/Time Jan 16, 2019 at 23:33 Initial Consult Date 01/25/19 Type of Consult hematology Reason for Consultation anemia Requesting Provider: SONAL ALBERT MD Date/Time of Note DATE: 01/31/19 TIME: 10:20 24 HR Interval Summary Free Text/Dictation no acute overnight events Exam/Review of Systems Exam Vitals Vital Signs Date Temp Pulse Resp B/P (MAP) Pulse Ox O2 O2 Flow FiO2 Time Delivery Rate 01/31/19 98.2 81 18 168/87 99 Room Air 08:44 (114) Intake and Output 01/30/19 01/30/19 01/31/19 1515:00 23:00 07:00 IntakeIntake Total 1240 ml 500 ml 200 ml OutputOutput Total 1600 ml 1300 ml BalanceBalance 1240 ml -1100 ml -1100 ml Constitutional: alert, oriented Psych: no complaints Head: normocephalic Eyes: nl conjunctiva ENMT: nl external ears & nose Respiratory: clear to auscultation Cardiovascular: regular rate and rhythm Musculoskeletal: nl extremities to inspection Extremities: normal pulses Results Result Diagram: 01/30/19 0437 01/29/19 0449 Results 24hrs Laboratory Tests Test 01/30/19 11:57 01/30/19 17:26 01/30/19 21:04 01/31/19 01:49 Bedside Glucose 202 133 207 119 Test 01/31/19 08:14 Bedside Glucose 81 Medications Medication Current Medications Albuterol (Ventolin Hfa) 4 puff Q2H RESP THERAPY PRN INH SHORTNESS OF BREATH; Start 01/17/19 at 00:00 Ipratropium [place] (Atrovent Hfa) 4 puff Q2H RESP THERAPY PRN INH SHORTNESS OF BREATH; Start 01/17/19 at 00:00 Acetaminophen (Tylenol Liquid) 650 mg Q6H PRN PO PAIN LEVEL 1-3 OR FEVER; St art 01/17/19 at 00:00 Miscellaneous Information 1 ea NOTE XX ; Start 01/17/19 at 11:00 Glucose (Glutose) 15 gm Q15M PRN PO DECREASED GLUCOSE; Start 01/17/19 at 11:00 Glucose (Glutose) 22.5 gm Q15M PRN PO DECREASED GLUCOSE; Start 01/17/19 at 11:00 Dextrose (D50w Syringe) 25 ml Q15M PRN IV DECREASED GLUCOSE; Start 01/17/19 at 11:00 Dextrose (D50w Syringe) 50 ml Q15M PRN IV DECREASED GLUCOSE; Start 01/17/19 at 11:00 Glucagon (Glucagen) 1 mg Q15M PRN IM DECREASED GLUCOSE; Start 01/17/19 at 11:00 Glucose (Glutose) 15 gm Q15M PRN BUCCAL DECREASED GLUCOSE; Start 01/17/19 at 11:00 Famotidine (Pepcid Iv) 20 mg DAILY IV Last administered on 01/31/19 08:16; Admin Dose 20 MG; Start 01/18/19 at 09:00 Collagenase (Santyl) 1 applic DAILY TOP Last administered on 01/31/19 08:12; Admin Dose 1 APPLIC; Start 01/17/19 at 17:00 Morphine Sulfate (morphine) 1 mg Q3H PRN IV SEVERE PAIN LEVEL 7-10 Last a dministered on 01/23/19at 12:54; Admin Dose 1 MG; Start 01/18/19 at 19:00 Piperacillin Sod/ Tazobactam Sod 100 ml @ 200 mls/hr Q6 IVPB Last administered on 01/31/19 05:37; Admin Dose 200 MLS/HR; Start 01/21/19 at 12:00 Carvedilol (Coreg) 3.125 mg BID PO Last administered on 01/31/19 08:22; Admin D ose 3.125 MG; Start 01/21/19 at 09:00 Hydralazine HCl (Apresoline) 10 mg Q4H PRN IV SBP >170 Last administered on 01/29/19 03:33; Admin Dose 10 MG; Start 01/21/19 at 14:30 Acetaminophen/ Hydrocodone Bitart ([place] (5/325)) 1 tab Q4H PRN PO MODERATE PAIN LEVEL 4-6 Last administered on 01/31/19 00:20; Admin Dose 1 TAB; Start 01/24/19 at 17:00 Lorazepam (Ativan) 0.5 mg Q6H PRN IV ANXIETY Last administered on 01/31/19 05:37; Admin Dose 0.5 MG; Start 01/24/19 at 21:00 Doxycycline Hyclate (Vibramycin) 100 mg BID PO Last administered on 01/31/19 08:15; Admin Dose 100 MG; Start 01/26/19 at 09:00 Nystatin (Nystatin Powder) 1 applic BID TOP Last administered on 01/31/19 08:12; Admin Dose 1 APPLIC; Start 01/27/19 at 21:00 Docusate Sodium (Colace) 100 mg BID PO Last administered on 01/31/19 08:15; Ad min Dose 100 MG; Start 01/28/19 at 09:00 Sodium Hypochlorite (Dakins Diluted ()) 1 applic DAILY TP Last administered on 01/31/19 09:54; Admin Dose 1 APPLIC; Start 01/28/19 at 09:40 Citalopram Hydrobromide (Celexa) 10 mg DAILY PO Last administered on 01/31/19 08:16; Admin Dose 10 MG; Start 01/30/19 at 09:00 Insulin Aspart (Novolog Insulin Pen) NOVOLOG *MILD* ALGORITHM WITH MEALS BEDTIME SC Last administered on 01/30/19 21:08; Admin Dose 1 UNIT; Start 01/30/19 at 08:00 Diagnostic Test (Pha) (Accu-Chek) 1 ea 02 XX Last administered on 01/31/19at 02:02; Admin Dose 1 EA; Start 01/31/19 at 02:00 RAJI DIXON M.D. Jan 31, 2019 10:22
--- NOTE | 2019-01-31 12:20 | PN ---
Date/Time of Note Date/Time of Note DATE: 01/31/19 TIME: 12:18 Assessment/Plan Lines/Catheters IV Catheter Type (from [facility]): Central Line Valadez in Place (from [facility]): Yes Assessment/Plan Chief Complaint/Hosp Course 1. Pneumoperitoneum with probable perforated viscus. Previously family did not consent to proceeding to surgery. She has significantly improved. Extubated. Repeat CT without bowel perforation or leak rather ? bladder perforation, ? cholangitis. -Supportive measures -Diet as tolerated -Pain management -Urology> pending CT cystogram 2. UTI: 2/2 #2 -abx per sensitivity -frequent bladder emptying/cath care 3. Hypochromic anemia: Status post PRBC transfusion, H&H stable -Monitor and transfuse as needed 4. Multiple wounds: + Wound cultures -local care> added Dakin's -frequent turning and off-loading -low air loss mattress -vitamin c -short term zinc -optimize nutrition 5. Transaminitis: Likely 2/ #5 -Trend 6. NSTEMI: -Cardiac optimization>per cards Thank you, Subjective [address] cystogram pending. HPI MRI noted. Bowel function. Minimal abdominal discomfort. Tolerating solid diet. No fevers, chills, sob, congested cough, cp, palpitations, keita, dizziness, nausea, vomiting, diarrhea, dysuria. Exam/Review of Systems Vital Signs Vitals Vital Signs Date Temp Pulse Resp B/P (MAP) Pulse Ox O2 O2 Flow FiO2 Time Delivery Rate 01/31/19 98.2 81 18 168/87 99 Room Air 08:44 (114) Intake and Output 01/30/19 01/30/19 01/31/19 1515:00 23:00 07:00 IntakeIntake Total 1240 ml 500 ml 200 ml OutputOutput Total 1600 ml 1300 ml BalanceBalance 1240 ml -1100 ml -1100 ml Exam Free Text/Dictation Constitutional: NAD, well developed; Psych: nl mood/affect, anxiety Head: normocephalic, atraumatic Eyes: nl conjunctiva, EOMI, nl lids, nl sclera ENMT: nl external ears & nose, no nl lips & teeth (poor dentition), mucosa pink and moist Neck: supple, non-tender; No jvd Respiratory: normal air movement; No congested cough, No labored breathing Cardiovascular: regular rate and rhythm, nl pulses; No edema Gastrointestinal: soft, non-distended, min tender, no rebound Genitourinary - Female: nl external genitalia Musculoskeletal: nl extremities to inspection, nl gait and stance Extremities: normal pulses Neurological: nl speech, no normal strength (generalized weakness) Skin: No rash or lesions, left hip wound: packed, scant drainage Lymph: nl lymph nodes Results Result Diagram: 01/30/19 0437 01/29/19 0449 ALEK HANDLEY MD Jan 31, 2019 12:20
[2019-01-31 13:45] VITALS: BP 123/62; PULSE 85; RESP 18
[2019-01-31 15:46] VITALS: BP 163/71; PULSE 66; RESP 18
--- NOTE | 2019-01-31 17:19 | PN ---
Date/Time of Note Date/Time of Note DATE: 01/31/19 TIME: 17:14 Assessment/Plan VTE Prophylaxis Risk score (from Ns)>0 risk: 7 SCD applied (from Ns): Yes Pharmacological prophylaxis: NA/contraindicated Pharm contraindication: surgical contra Assessment/Plan Hospital Course 59 yo female with chronic debility and leg weakness who presented with sepsis, severe anemia, and perforated viscus Sepsis: - Shock resolved, continue abx per ID Questionable perforated viscus -Etiology unclear -CT pelvis shows no colovesical fistula and no air outside of the bladder - management per surgery and urology - abx Hip AVN vs OM: - Abx per ID Macrocytic anemia secondary to elevated reticulocyte count - Status post 4 units of packed red blood cells - stable Iron deficiency: - IV iron Acute kidney injury secondary to severe septic shock-improving - Renal function improved to baseline Fall -No evidence of fracture on imaging Prophylaxis: SCDs, Protonix Discharge planning; To [facility] when workup/management completed Result Diagram: 01/30/19 0437 01/29/19 0449 Results 24hrs Laboratory Tests Test 01/30/19 17:26 01/30/19 21:04 01/31/19 01:49 01/31/19 08:14 Bedside Glucose 133 207 119 81 Test 01/31/19 12:10 Bedside Glucose 141 Subjective 24 Hr Interval Summary Constitutional: no complaints Exam/Review of Systems Exam Vitals Vital Signs Date Temp Pulse Resp B/P (MAP) Pulse Ox O2 O2 Flow FiO2 Time Delivery Rate 01/31/19 98.4 66 18 163/71 99 Room Air 15:46 (101) Intake and Output 01/30/19 01/30/19 01/31/19 1515:00 23:00 07:00 IntakeIntake Total 1240 ml 500 ml 200 ml OutputOutput Total 1600 ml 1300 ml BalanceBalance 1240 ml -1100 ml -1100 ml Constitutional: alert Respiratory: clear to auscultation Cardiovascular: regular rate and rhythm Gastrointestinal: soft; No distended Musculoskeletal: nl extremities to inspection Results Results 24hrs Laboratory Tests Test 01/30/19 17:26 01/30/19 21:04 01/31/19 01:49 01/31/19 08:14 Bedside Glucose 133 207 119 81 Test 01/31/19 12:10 Bedside Glucose 141 Medications Medication Current Medications Albuterol (Ventolin Hfa) 4 puff Q2H RESP THERAPY PRN INH SHORTNESS OF BREATH; Start 01/17/19 at 00:00 Ipratropium [place] (Atrovent Hfa) 4 puff Q2H RESP THERAPY PRN INH SHORTNESS OF BREATH; Start 01/17/19 at 00:00 Acetaminophen (Tylenol Liquid) 650 mg Q6H PRN PO PAIN LEVEL 1-3 OR FEVER; Start 01/17/19 at 00:00 Miscellaneous Information 1 ea NOTE XX ; Start 01/17/19 at 11:00 Glucose (Glutose) 15 gm Q15M PRN PO DECREASED GLUCOSE; Start 01/17/19 at 11:00 Glucose (Glutose) 22.5 gm Q15M PRN PO DECREASED GLUCOSE; Start 01/17/19 at 11:00 Dextrose (D50w Syringe) 25 ml Q15M PRN IV DECREASED GLUCOSE; Start 01/17/19 at 11:00 Dextrose (D50w Syringe) 50 ml Q15M PRN IV DECREASED GLUCOSE; Start 01/17/19 at 11:00 Glucagon (Glucagen) 1 mg Q15M PRN IM DECREASED GLUCOSE; Start 01/17/19 at 11:00 Glucose (Glutose) 15 gm Q15M PRN BUCCAL DECREASED GLUCOSE; Start 01/17/19 at 11:00 Famotidine (Pepcid Iv) 20 mg DAILY IV Last administered on 01/31/19 08:16; Admin Dose 20 MG; Start 01/18/19 at 09:00 Collagenase (Santyl) 1 applic DAILY TOP Last administered on 01/31/19 08:12; Admin Dose 1 APPLIC; Start 01/17/19 at 17:00 Morphine Sulfate (morphine) 1 mg Q3H PRN IV SEVERE PAIN LEVEL 7-10 Last administered on 01/23/19at 12:54; Admin Dose 1 MG; Start 01/18/19 at 19:00 Piperacillin Sod/ Tazobactam Sod 100 ml @ 200 mls/hr Q6 IVPB Last administered on 01/31/19 12:17; Admin Dose 200 MLS/HR; Start 01/21/19 at 12:00 Carvedilol (Coreg) 3.125 mg BID PO Last administered on 01/31/19 08:22; Admin Dose 3.125 MG; Start 01/21/19 at 09:00 Hydralazine HCl (Apresoline) 10 mg Q4H PRN IV SBP >170 Last administered on 01/29/19 03:33; Admin Dose 10 MG; Start 01/21/19 at 14:30 Acetaminophen/ Hydrocodone Bitart ([place] (5/325)) 1 tab Q4H PRN PO MODERATE PAIN LEVEL 4-6 Last administered on 01/31/19 16:59; Admin Dose 1 TAB; Start 01/24/19 at 17:00 Lorazepam (Ativan) 0.5 mg Q6H PRN IV ANXIETY Last administered on 01/31/19 11 :59; Admin Dose 0.5 MG; Start 01/24/19 at 21:00 Doxycycline Hyclate (Vibramycin) 100 mg BID PO Last administered on 01/31/19 08:15; Admin Dose 100 MG; Start 01/26/19 at 09:00 Nystatin (Nystatin Powder) 1 applic BID TOP Last administered on 01/31/19 08:12; Admin Dose 1 APPLIC; Start 01/27/19 at 21:00 Docusate Sodium (Colace) 100 mg BID PO Last administered on 01/31/19 08:15; Admin Dose 100 MG; Start 01/28/19 at 09:00 Sodium Hypochlorite (Dakins Diluted (40)) 1 applic DAILY TP Last administered on 01/31/19 09:54; Admin Dose 1 APPLIC; Start 01/28/19 at 09:40 Citalopram Hydrobromide (Celexa) 10 mg DAILY PO Last administered on 01/31/19 08:16; Admin Dose 10 MG; Start 01/30/19 at 09:00 Insulin Aspart (Novolog Insulin Pen) NOVOLOG *MILD* ALGORITHM WITH MEALS BEDTIME SC Last administered on 01/31/19 12:14; Admin Dose 1 UNIT; Start 01/30/19 at 08:00 Diagnostic Test (Pha) (Accu-Chek) 1 ea 02 XX Last administered on 01/31/19 02:02; Admin Dose 1 EA; Start 01/31/19 at 02:00 ALLISON WOLFF Jan 31, 2019 17:19
[2019-01-31 20:00] VITALS: BP 167/71; PULSE 80; RESP 18
[2019-02-01] MEDS: PIPER-TAZO 3.375 GM IV (PMX) 100 ML IVPB SCH ×4 (00:08→17:33)
[2019-02-01 02:00] VITALS: BP 168/77; PULSE 84; RESP 18
[2019-02-01] MEDS: ACCU-CHEK XX SCH (02:00)
[2019-02-01] MEDS: LORAZEPAM 2 MG INJ IV PRN ×4 (02:39→22:13)
[2019-02-01] MEDS: HYDROCODONE/APAP (5/325) TAB PO PRN ×4 (06:21→22:20)
[2019-02-01 07:55] VITALS: BP 166/81; PULSE 89; RESP 18
--- NOTE | 2019-02-01 09:17 | CONS ---
Assessment/Plan Assessment/Plan Hospital Course (Demo Recall) #Anemia -patient's initial Hg of 2.6 was likely secondary to GIB and perforated viscous. Stool ob at that time was negative. -anemia panel is consistent with iron deficiency -s/p Ferrlecit 125 mg IV x 5 days -Hg did drop to 8.6. will recheck iron studies at this time #Sepsis -continue antibiotics #Perforated viscous -continue conservative management per surgery #JACKIE -renal following -Creatine improving Consultation Date/Type/Reason Admit Date/Time Jan 16, 2019 at 23:33 Initial Consult Date 01/25/19 Type of Consult hematology Reason for Consultation anemia Requesting Provider: SONAL ALBERT MD Date/Time of Note DATE: 02/01/19 TIME: 09:16 24 HR Interval Summary Free Text/Dictation no acute overnight events Exam/Review of Systems Exam Vitals Vital Signs Date Temp Pulse Resp B/P (MAP) Pulse Ox O2 O2 Flow FiO2 Time Delivery Rate 02/01/19 98.6 89 18 166/81 99 Room Air 07:55 (109) Intake and Output 01/31/19 01/31/19 02/01/19 1414:59 22:59 06:59 IntakeIntake Total 340 ml 580 ml 200 ml OutputOutput Total 1650 ml 2000 ml BalanceBalance 340 ml -1070 ml -1800 ml Constitutional: alert, oriented Psych: no complaints Head: normocephalic Eyes: nl conjunctiva ENMT: nl external ears & nose Neck: supple Respiratory: clear to auscultation Cardiovascular: regular rate and rhythm Gastrointestinal: soft Musculoskeletal: nl extremities to inspection Extremities: normal pulses Results Result Diagram: 01/30/19 0437 01/29/19 0449 Results 24hrs Laboratory Tests Test 01/31/19 12:10 01/31/19 17:43 01/31/19 20:16 02/01/19 08:50 Bedside Glucose 141 103 102 164 Medications Medication Current Medications Albuterol (Ventolin Hfa) 4 puff Q2H RESP THERAPY PRN INH SHORTNESS OF BREATH; Start 01/17/19 at 00:00 Ipratropium [place] (Atrovent Hfa) 4 puff Q2H RESP THERAPY PRN INH SHORTNESS OF BREATH; Start 01/17/19 at 00:00 Acetaminophen (Tylenol Liquid) 650 mg Q6H PRN PO PAIN LEVEL 1-3 OR FEVER; Start 01/17/19 at 00:00 Miscellaneous Information 1 ea NOTE XX ; Start 01/17/19 at 11:00 Glucose (Glutose) 15 gm Q15M PRN PO DECREASED GLUCOSE; Start 01/17/19 at 11:00 Glucose (Glutose) 22.5 gm Q15M PRN PO DECREASED GLUCOSE; Start 01/17/19 at 11:00 Dextrose (D50w Syringe) 25 ml Q15M PRN IV DECREASED GLUCOSE; Start 01/17/19 at 11:00 Dextrose (D50w Syringe) 50 ml Q15M PRN IV DECREASED GLUCOSE; Start 01/17/19 at 11:00 Glucagon (Glucagen) 1 mg Q15M PRN IM DECREASED GLUCOSE; Start 01/17/19 at 11:00 Glucose (Glutose) 15 gm Q15M PRN BUCCAL DECREASED GLUCOSE; Start 01/17/19 at 11:00 Famotidine (Pepcid Iv) 20 mg DAILY IV Last administered on 01/31/19 08:16; Admin Dose 20 MG; Start 01/18/19 at 09:00 Collagenase (Santyl) 1 applic DAILY TOP Last administered on 01/31/19 08:12; Admin Dose 1 APPLIC; Start 01/17/19 at 17:00 Morphine Sulfate (morphine) 1 mg Q3H PRN IV SEVERE PAIN LEVEL 7-10 Last administered on 01/23/19 12:54; Admin Dose 1 MG; Start 01/18/19 at 19:00 Piperacillin Sod/ Tazobactam Sod 100 ml @ 200 mls/hr Q6 IVPB Last administered on 02/01/19 05:24; Admin Dose 200 MLS/HR; Start 01/21/19 at 12:00 Carvedilol (Coreg) 3.125 mg BID PO Last administered on 01/31/19 20:22; Admin Dose 3.125 MG; Start 01/21/19 at 09:00 Hydralazine HCl (Apresoline) 10 mg Q4H PRN IV SBP >170 Last administered on 01/29/19 03:33; Admin Dose 10 MG; Start 01/21/19 at 14:30 Acetaminophen/ Hydrocodone Bitart ([place] (5/325)) 1 tab Q4H PRN PO MODERATE PAIN LEVEL 4-6 Last administered on 02/01/19 06:21; Admin Dose 1 TAB; Start 01/24/19 at 17:00 Lorazepam (Ativan) 0.5 mg Q6H PRN IV ANXIETY Last administered on 02/01/19 02:39; Admin Dose 0.5 MG; Start 01/24/19 at 21:00 Doxycycline Hyclate (Vibramycin) 100 mg BID PO Last administered on 01/31/19 20:22; Admin Dose 100 MG; Start 01/26/19 at 09:00 Nystatin (Nystatin Powder) 1 applic BID TOP Last administered on 01/31/19 20:23; Admin Dose 1 APPLIC; Start 01/27/19 at 21:00 Docusate Sodium (Colace) 100 mg BID PO Last administered on 01/31/19 20:22; Admin Dose 100 MG; Start 01/28/19 at 09:00 Sodium Hypochlorite (Dakins Diluted ()) 1 applic DAILY TP Last administered on 01/31/19 09:54; Admin Dose 1 APPLIC; Start 01/28/19 at 09:40 Citalopram Hydrobromide (Celexa) 10 mg DAILY PO Last administered on 01/31/19 08:16; Admin Dose 10 MG; Start 01/30/19 at 09:00 Insulin Aspart (Novolog Insulin Pen) NOVOLOG *MILD* ALGORITHM WITH MEALS BEDTIME SC Last administered on 01/31/19 12:14; Admin Dose 1 UNIT; Start at 08:00 Diagnostic Test (Pha) (Accu-Chek) 1 ea 02 XX Last administered on 01/31/19 02:02; Admin Dose 1 EA; Start 01/31/19 at 02:00 RAJI DIXON M.D. Feb 01, 2019 09:17
[2019-02-01] MEDS: INSULIN ASPART [NOVOLOG] 3 ML PEN SC SCH ×4 (09:30→21:00)
[2019-02-01] MEDS: FAMOTIDINE 20 MG INJ IV SCH (09:31)
[2019-02-01] MEDS: DOXYCYCLINE 100 MG TAB PO SCH ×2 (09:32→22:03)
[2019-02-01] MEDS: DOCUSATE SODIUM 100 MG CAP PO SCH ×2 (09:32→22:03)
[2019-02-01] MEDS: CITALOPRAM 20 MG TAB PO SCH (09:32)
[2019-02-01] MEDS: BALSAM PERU/CASTOR OIL 60 GM TUBE TOP SCH ×2 (09:34→22:04)
[2019-02-01] MEDS: COLLAGENASE 5 GM (UD JAR) TOP SCH (09:34)
[2019-02-01] MEDS: NYSTATIN 30 GM POWDER BTL TOP SCH ×2 (09:34→22:04)
[2019-02-01] MEDS: DAKINS 0.0125%(1/40) 473 ML SOLUTION TP SCH (09:35)
--- NOTE | 2019-02-01 10:21 | PN ---
Date/Time of Note Date/Time of Note DATE: 02/01/19 TIME: 10:19 Assessment/Plan Lines/Catheters IV Catheter Type (from Nrs): Central Line Valadez in Place (from Nrs): Yes Assessment/Plan Chief Complaint/Hosp Course 1. Pneumoperitoneum with probable perforated viscus. Previously family did not consent to proceeding to surgery. She has significantly improved. Extubated.: CT cystogram noted without contrast leak -Supportive measures -Diet as tolerated -Pain management -Per urology -DC planning okay from surgical standpoint 2. UTI: 2/2 #2 -abx per sensitivity -frequent bladder emptying/cath care 3. Hypochromic anemia: Status post PRBC transfusion, H&H stable -Monitor and transfuse as needed 4. Multiple wounds: + Wound cultures -local care> added Dakin's -frequent turning and off-loading -low air loss mattress -vitamin c -short term zinc -optimize nutrition 5. Transaminitis: Likely 2/ #5 -Trend 6. NSTEMI: -Cardiac optimization>per cards 7. Possible left knee effusion -Per medical team; consider Ortho consult Thank you. Patient seen and examined in collaboration with Dr. Osei Sanford. Subjective 24 Hr Interval Summary Feels well. + Bowel function. CT cystogram noted. No fevers, chills, sob, congested cough, cp, palpitations, keita, dizziness, nausea, vomiting, diarrhea, dysuria. Exam/Review of Systems Vital Signs Vitals Vital Signs Date Temp Pulse Resp B/P (MAP) Pulse Ox O2 O2 Flow FiO2 Time Delivery Rate 02/01/19 98.6 89 18 166/81 99 Room Air 07:55 (109) Intake and Output 01/31/19 01/31/19 02/01/19 1515:00 23:00 07:00 IntakeIntake Total 340 ml 580 ml 200 ml OutputOutput Total 1650 ml 2000 ml BalanceBalance 340 ml -1070 ml -1800 ml Exam Free Text/Dictation Constitutional: NAD, well developed; Psych: nl mood/affect, anxiety Head: normocephalic, atraumatic Eyes: nl conjunctiva, EOMI, nl lids, nl sclera ENMT: nl external ears & nose, no nl lips & teeth (poor dentition), mucosa pink and moist Neck: supple, non-tender; No jvd Respiratory: normal air movement; No congested cough, No labored breathing Cardiovascular: regular rate and rhythm, nl pulses; No edema Gastrointestinal: soft, non-distended, min tender, no rebound Genitourinary - Female: nl external genitalia Musculoskeletal: nl extremities to inspection, nl gait and stance Extremities: normal pulses Neurological: nl speech, no normal strength (generalized weakness) Skin: No rash or lesions, left hip wound: packed, scant drainage Lymph: nl lymph nodes Results Result Diagram: 01/30/19 0437 01/29/19 0449 MASSIMO WATKINS NP Feb 01, 2019 10:21
[2019-02-01 14:06] VITALS: BP 157/76; PULSE 83; RESP 17
--- NOTE | 2019-02-01 15:17 | PN ---
Date/Time of Note Date/Time of Note DATE: 02/01/19 TIME: 15:15 Assessment/Plan VTE Prophylaxis Risk score (from Ns)>0 risk: 5 SCD applied (from Ns): Yes Pharmacological prophylaxis: NA/contraindicated Pharm contraindication: surgical contra Assessment/Plan Hospital Course 59 yo female with chronic debility and leg weakness who presented with sepsis, severe anemia, and perforated viscus Sepsis: - Shock resolved, continue abx per ID Questionable perforated viscus -Etiology unclear -CT pelvis shows no colovesical fistula and no air outside of the bladder - management per surgery and urology - abx Hip AVN vs OM: - Abx per ID Macrocytic anemia secondary to elevated reticulocyte count - Status post 4 units of packed red blood cells - stable Iron deficiency: - IV iron Acute kidney injury secondary to severe septic shock-improving - Renal function improved to baseline Fall -No evidence of fracture on imaging Lower extremity pain likely secondary to muscle spasms from history of back surgery -Scheduled low dose Valium and baclofen Prophylaxis: SCDs, Protonix Discharge planning: Pending placement Result Diagram: 01/30/19 0437 01/29/19 0449 Results 24hrs Laboratory Tests Test 01/31/19 17:43 01/31/19 20:16 02/01/19 08:50 02/01/19 10:01 Bedside Glucose 103 102 164 Iron Level 28 L Total Iron Binding 179 L Capacity Percent Iron Saturation 16 L Ferritin 472.0 H Test 02/01/19 11:50 Bedside Glucose 176 Subjective 24 Hr Interval Summary Musculoskeletal: bone/joint pain Exam/Review of Systems Exam Vitals Vital Signs Date Temp Pulse Resp B/P (MAP) Pulse Ox O2 O2 Flow FiO2 Time Delivery Rate 02/01/19 98.6 89 18 166/81 99 Room Air 07:55 (109) Intake and Output 01/31/19 01/31/19 02/01/19 1515:00 23:00 07:00 IntakeIntake Total 340 ml 580 ml 200 ml OutputOutput Total 1650 ml 2000 ml BalanceBalance 340 ml -1070 ml -1800 ml Constitutional: alert, oriented Respiratory: clear to auscultation Gastrointestinal: soft; No distended Musculoskeletal: nl extremities to inspection Results Results 24hrs Laboratory Tests Test 01/31/19 17:43 01/31/19 20:16 02/01/19 08:50 02/01/19 10:01 Bedside Glucose 103 102 164 Iron Level 28 L Total Iron Binding 179 L Capacity Percent Iron Saturation 16 L Ferritin 472.0 H Test 02/01/19 11:50 Bedside Glucose 176 Medications Medication Current Medications Albuterol (Ventolin Hfa) 4 puff Q2H RESP THERAPY PRN INH SHORTNESS OF BREATH; Start 01/17/19 at 00:00 Ipratropium [place] (Atrovent Hfa) 4 puff Q2H RESP THERAPY PRN INH SHORTNESS OF BREATH; Start 01/17/19 at 00:00 Acetaminophen (Tylenol Liquid) 650 mg Q6H PRN PO PAIN LEVEL 1-3 OR FEVER; Start 01/17/19 at 00:00 Miscellaneous Information 1 ea NOTE XX ; Start 01/17/19 at 11:00 Glucose (Glutose) 15 gm Q15M PRN PO DECREASED GLUCOSE; Start 01/17/19 at 11:00 Glucose (Glutose) 22.5 gm Q15M PRN PO DECREASED GLUCOSE; Start 01/17/19 at 11:00 Dextrose (D50w Syringe) 25 ml Q15M PRN IV DECREASED GLUCOSE; Start 01/17/19 at 11:00 Dextrose (D50w Syringe) 50 ml Q15M PRN IV DECREASED GLUCOSE; Start 01/17/19 at 11:00 Glucagon (Glucagen) 1 mg Q15M PRN IM DECREASED GLUCOSE; Start 01/17/19 at 11:00 Glucose (Glutose) 15 gm Q15M PRN BUCCAL DECREASED GLUCOSE; Start 01/17/19 at 11:00 Famotidine (Pepcid Iv) 20 mg DAILY IV Last administered on 02/01/19at 09:31; Admin Dose 20 MG; Start 01/18/19 at 09:00 Collagenase (Santyl) 1 applic DAILY TOP Last administered on 02/01/19at 09:34; Admin Dose 1 APPLIC; Start 01/17/19 at 17:00 Morphine Sulfate (morphine) 1 mg Q3H PRN IV SEVERE PAIN LEVEL 7-10 Last administered on 01/23/19at 12:54; Admin Dose 1 MG; Start 01/18/19 at 19:00 Piperacillin Sod/ Tazobactam Sod 100 ml @ 200 mls/hr Q6 IVPB Last administered on 02/01/19at 11:48; Admin Dose 200 MLS/HR; Start 01/21/19 at 12:00 Carvedilol (Coreg) 3.125 mg BID PO Last administered on 02/01/19 09:33; Admin Dose 3.125 MG; Start 01/21/19 at 09:00 Hydralazine HCl (Apresoline) 10 mg Q4H PRN IV SBP >170 Last administered on 01/29/19 03:33; Admin Dose 10 MG; Start 01/21/19 at 14:30 Acetaminophen/ Hydrocodone Bitart ([place] (5/325)) 1 tab Q4H PRN PO MODERATE PAIN LEVEL 4-6 Last administered on 02/01/19 11:43; Admin Dose 1 TAB; Start 01/24/19 at 17:00 Lorazepam (Ativan) 0.5 mg Q6H PRN IV ANXIETY Last administered on 02/01/19 09:33; Admin Dose 0.5 MG; Start 01/24/19 at 21:00 Doxycycline Hyclate (Vibramycin) 100 mg BID PO Last administered on 02/01/19 09:32; Admin Dose 100 MG; Start 01/26/19 at 09:00 Nystatin (Nystatin Powder) 1 applic BID TOP Last administered on 02/01/19 09:34; Admin Dose 1 APPLIC; Start 01/27/19 at 21:00 Docusate Sodium (Colace) 100 mg BID PO Last administered on 02/01/19 09:32; Admin Dose 100 MG; Start 01/28/19 at 09:00 Sodium Hypochlorite (Dakins Diluted ()) 1 applic DAILY TP Last administered on 02/01/19 09:35; Admin Dose 1 APPLIC; Start 01/28/19 at 09:40 Citalopram Hydrobromide (Celexa) 10 mg DAILY PO Last administered on 02/01/19 09:32; Admin Dose 10 MG; Start 01/30/19 at 09:00 Insulin Aspart (Novolog Insulin Pen) NOVOLOG *MILD* ALGORITHM WITH MEALS BEDTIME SC Last administered on 02/01/19 11:54; Admin Dose 1 UNIT; Start 01/30/19 at 08:00 Diagnostic Test (Pha) (Accu-Chek) 1 ea 02 XX Last administered on 01/31/19 02:02; Admin Dose 1 EA; Start 01/31/19 at 02:00 ALLISON WOLFF Feb 01, 2019 15:17
[2019-02-01 20:48] VITALS: BP 157/77; PULSE 79; RESP 18
[2019-02-01] MEDS: BACLOFEN 10 MG TAB PO SCH (22:04)
[2019-02-01] MEDS: DIAZEPAM 2 MG TAB PO SCH (22:04)
[2019-02-02] MEDS: PIPER-TAZO 3.375 GM IV (PMX) 100 ML IVPB SCH ×5 (00:40→23:08)
[2019-02-02] MEDS: ACCU-CHEK XX SCH (02:00)
[2019-02-02 02:02] VITALS: BP 150/74; PULSE 74; RESP 18
[2019-02-02] MEDS: LORAZEPAM 2 MG INJ IV PRN (05:21)
[2019-02-02] MEDS: HYDROCODONE/APAP (5/325) TAB PO PRN ×3 (05:21→16:19)
--- NOTE | 2019-02-02 07:30 | CONS ---
Assessment/Plan Assessment/Plan Hospital Course (Demo Recall) 1) pneumoperitoneum and sepsis could be related to pt taking motrin for some pain continue with vanco/zosyn at present to renally dose them await decision by family regarding surgery vs hospice 01/18 - continue with vanco/zosyn CoNS in blood, only one bottle, likely represents contamination e.coli in urine is sensitive to the zosyn pt has EtOH abuse lactic acid has normalized 01/19 - MRSA in nasal area, likely perf is gastric or duodenal to continue with vanco at present and zosyn decrease in platelets noted, may need to change vanco if trend continues 01/20 - no significant change a.m. labs are pending due to blood tx overnight on vanco/zosyn pt has GNR in blood cx, ID is pending but sensitive to zosyn 01/21 - increase dose of zosyn as renal function is further improved awaits CT abd/pelv repeat to see if pt can start to eat alcaligenes was also in blood cx and is a stool bacteria 01/22 - pt passed swallow eval for oral contrast, but CT is still pending continue with vanco/zosyn at present 01/24 - await CT results, pt has tolerated clear liquids though on vanco/zosyn to continue at present pt will need zosyn thru 01/29/19 at least (pt will need eval for possible L hip osteo and if present will need a longer course of the zosyn when pt on full orals will change vanco to doxycycline 01/26 - continue with zosyn, change vanco to doxycycline 01/27 - stable and eating soft foods without difficulty pt to get CT cystogram to see if pt has fistula from bladder 01/31 - pt is eating well without abd pain CT cystogram is pending consider pain management team consult 02/02 - CT cystogram did not show fistula await Dr. [place] input regarding possible cystoscopy recommend pain management consult 2)severe anemia pt is being transfused only smears of stool since admission to get hemoccult 01/18 - Hgb is more stable 01/19 - drop in Hgb again, will need blood tx again 01/20 - pt tx again, a.m. labs are pending 01/21 - Hgb is at 9 now 01/22 - Hgb is stable 01/28 - Hgb remains stable 3) ARF with pyuria and hematuria (e.coli in urine) improving with hydration and blood tx await urine cx results 01/18 - improving urine output and creatinine urine cx has e.coli that is sensitive to zosyn renal u/s suggests hydro on the R and possible renal clot or debris on L 01/19 - further improvement in creatinine on zosyn for e.coli in urine 01/21 - further improvement in renal function 01/22 - creatinine almost normal 01/24 - creatinine has normalized while on vanco 4) elevated troponins likely due to stress from severe anemia 5) hepatitis again likely due to sepsis and severe anemia check hep serologies 01/18 - hep serologies are pending 01/19 - neg hep serologies and HIV LFT's are trending down 6) L hip eschar/decubitus unstageable wound cx was ordered 01/18 - wound cx has not been done, nurse was informed 01/19 - wound cx was obtained and is pending 01/20 - wound cx has GPC growing 01/21 - MRSA in wound cx from hip, continue with vanco at present platelets are improving 01/22 - MRSA and alcaligenes was in wound cx ESR is extremely high, pt will likely need MRI of L hip area to see if osteomyelitis is present when pt is more stable 01/24 - when pt is eating will order MRI of L hip to see if osteo is present (pt has deep ulcer there and very high ESR) continue vanco/zosyn at present 01/26 - I will order MRI with contrast to L hip area on zosyn/doxy now 01/28 - MRI done and shows probable septic arthritis and possible early osteo I would continue with doxy/zosyn for 4 week regimen (thru 02/12/19) ESR was greatly improved (too improved?), to repeat ESR in a.m. 01/31 - doubt pt has AVN of hip but more likely infection given depth of ulcer the same area ESR is much improved since admission continue with zosyn/doxy thru 02/12/19 7) hypoalbuminemia pt came in with low albumin, she has likely been sick or not eating well for a while 8) CoNS bacteremia 01/18 - only one bottle has CoNS, likely this is contamination continue with vanco at present, await final wound cx results 9) decrease in platelets 01/19 - consider change of vanco if trend continues 01/20 - her MRSA is sensitive to doxy so could change vanco to that 01/21 - platelets are improved 01/22 - platelets are WNL 10) GNR in original blood cx (alcaligenes faecalis) 01/20 - ID is pending but it is sensitive to zosyn 01/21 - alcaligenes is a stool bacteria and likely related to her peritonitis continue with zosyn 01/22 - alcaligines was also in wound cx when pt is eating and more stable will order MRI of L hip to verify no osteo or abscess is present 01/24 - pt will need at least zosyn thru 01/29, longer if osteo of L hip is present 11) LE weakness consider re-consult with surgeon who did the surgery last year 02/02 - pt is not participating in PT due to pain Recommend Dr. Westbrook re-consult pt (surgeon that did her cervical surgery last year) recommend pain management Consultation Date/Type/Reason Admit Date/Time Jan 16, 2019 at 23:33 Initial Consult Date 01/17/19 Type of Consult ID Requesting Provider: SONAL ALBERT MD Date/Time of Note DATE: 02/02/19 TIME: 07:25 24 HR Interval Summary Free Text/Dictation pt refusing PT due to pain pt concerned that her lack of mobility is due to the surgery she had last year by Dr. Westbrook no N, V abd pain is overall better eating ok Exam/Review of Systems Exam Vitals Vital Signs Date Temp Pulse Resp B/P (MAP) Pulse Ox O2 O2 Flow FiO2 Time Delivery Rate 02/02/19 98.2 74 18 150/74 98 02:02 (99) 02/01/19 Room Air 14:06 Intake and Output 02/01/19 02/01/19 02/02/19 1515:00 23:00 07:00 IntakeIntake Total 100 ml 1500 ml 100 ml OutputOutput Total 1400 ml BalanceBalance 100 ml 100 ml 100 ml Constitutional: alert ENMT: mucosa pink and moist Respiratory: clear to auscultation Cardiovascular: regular rate and rhythm Gastrointestinal: soft, non-tender Results Result Diagram: 01/30/19 0437 01/29/19 0449 Results 24hrs Laboratory Tests Test 02/01/19 08:50 02/01/19 10:01 02/01/19 11:50 02/01/19 17:29 Bedside Glucose 164 176 217 Iron Level 28 L Total Iron Binding 179 L Capacity Percent Iron Saturation 16 L Ferritin 472.0 H Test 02/01/19 22:02 Bedside Glucose 109 Medications Medication Current Medications Albuterol (Ventolin Hfa) 4 puff Q2H RESP THERAPY PRN INH SHORTNESS OF BREATH; Start 01/17/19 at 00:00 Ipratropium [place] (Atrovent Hfa) 4 puff Q2H RESP THERAPY PRN INH SHORTNESS OF BREATH; Start 01/17/19 at 00:00 Acetaminophen (Tylenol Liquid) 650 mg Q6H PRN PO PAIN LEVEL 1-3 OR FEVER; Start 01/17/19 at 00:00 Miscellaneous Information 1 ea NOTE XX ; Start 01/17/19 at 11:00 Glucose (Glutose) 15 gm Q15M PRN PO DECREASED GLUCOSE; Start 01/17/19 at 11:00 Glucose (Glutose) 22.5 gm Q15M PRN PO DECREASED GLUCOSE; Start 01/17/19 at 11:00 Dextrose (D50w Syringe) 25 ml Q15M PRN IV DECREASED GLUCOSE; Start 01/17/19 at 11:00 Dextrose (D50w Syringe) 50 ml Q15M PRN IV DECREASED GLUCOSE; Start 01/17/19 at 11:00 Glucagon (Glucagen) 1 mg Q15M PRN IM DECREASED GLUCOSE; Start 01/17/19 at 11:00 Glucose (Glutose) 15 gm Q15M PRN BUCCAL DECREASED GLUCOSE; Start 01/17/19 at 11:00 Collagenase (Santyl) 1 applic DAILY TOP Last administered on 02/01/19at 09:34; Admin Dose 1 APPLIC; Start 01/17/19 at 17:00 Morphine Sulfate (morphine) 1 mg Q3H PRN IV SEVERE PAIN LEVEL 7-10 Last administered on 01/23/19at 12:54; Admin Dose 1 MG; Start 01/18/19 at 19:00 Piperacillin Sod/ Tazobactam Sod 100 ml @ 200 mls/hr Q6 IVPB Last administered on 02/02/19at 05:29; Admin Dose 200 MLS/HR; Start 01/21/19 at 12:00 Carvedilol (Coreg) 3.125 mg BID PO Last administered on 02/01/19 22:03; Admin Dose 3.125 MG; Start 01/21/19 at 09:00 Hydralazine HCl (Apresoline) 10 mg Q4H PRN IV SBP >170 Last administered on 01/29/19 03:33; Admin Dose 10 MG; Start 01/21/19 at 14:30 Acetaminophen/ Hydrocodone Bitart ([place] (5/325)) 1 tab Q4H PRN PO MODERATE PAIN LEVEL 4-6 Last administered on 02/02/19 05:21; Admin Dose 1 TAB; Start 01/24/19 at 17:00 Lorazepam (Ativan) 0.5 mg Q6H PRN IV ANXIETY Last administered on 02/02/19 05:21; Admin Dose 0.5 MG; Start 01/24/19 at 21:00 Doxycycline Hyclate (Vibramycin) 100 mg BID PO Last administered on 02/01/19 22:03; Admin Dose 100 MG; Start 01/26/19 at 09:00 Nystatin (Nystatin Powder) 1 applic BID TOP Last administered on 02/01/19 22:04; Admin Dose 1 APPLIC; Start 01/27/19 at 21:00 Docusate Sodium (Colace) 100 mg BID PO Last administered on 02/01/19 22:03; Admin Dose 100 MG; Start 01/28/19 at 09:00 Sodium Hypochlorite (Dakins Diluted ()) 1 applic DAILY TP Last administered on 02/01/19 09:35; Admin Dose 1 APPLIC; Start 01/28/19 at 09:40 Citalopram Hydrobromide (Celexa) 10 mg DAILY PO Last administered on 02/01/19 09:32; Admin Dose 10 MG; Start 01/30/19 at 09:00 Insulin Aspart (Novolog Insulin Pen) NOVOLOG *MILD* ALGORITHM WITH MEALS BEDTIME SC Last administered on 02/01/19 17:34; Admin Dose 2 UNIT; Start 01/30/19 at 08:00 Diagnostic Test (Pha) (Accu-Chek) 1 ea 02 XX Last administered on 01/31/19 02:02; Admin Dose 1 EA; Start 01/31/19 at 02:00 Diazepam (Valium) 2 mg TID PO Last administered on 4/9/19at 22:04; Admin Dose 2 MG; Start 02/01/19 at 21:00 Baclofen (Lioresal) 5 mg TID PO Last administered on 02/01/19at 22:04; Admin Dose 5 MG; Start 02/01/19 at 21:00 Famotidine (Pepcid) 20 mg DAILY PO ; Start 02/02/19 at 09:00 PATSY LEVY MD Feb 02, 2019 07:30
[2019-02-02 08:00] VITALS: BP 150/72; PULSE 80; RESP 18
[2019-02-02] MEDS: FAMOTIDINE 20 MG TAB PO SCH (08:44)
[2019-02-02] MEDS: DOXYCYCLINE 100 MG TAB PO SCH ×2 (08:44→20:40)
[2019-02-02] MEDS: CITALOPRAM 20 MG TAB PO SCH (08:46)
[2019-02-02] MEDS: DOCUSATE SODIUM 100 MG CAP PO SCH ×2 (08:46→20:40)
[2019-02-02] MEDS: DIAZEPAM 2 MG TAB PO SCH ×3 (08:46→20:40)
[2019-02-02] MEDS: BACLOFEN 10 MG TAB PO SCH ×3 (08:46→20:40)
[2019-02-02] MEDS: NYSTATIN 30 GM POWDER BTL TOP SCH ×2 (08:47→23:08)
[2019-02-02] MEDS: DAKINS 0.0125%(1/40) 473 ML SOLUTION TP SCH (08:48)
[2019-02-02] MEDS: COLLAGENASE 5 GM (UD JAR) TOP SCH (08:48)
[2019-02-02] MEDS: INSULIN ASPART [NOVOLOG] 3 ML PEN SC SCH ×6 (08:54→20:42)
[2019-02-02] MEDS: BALSAM PERU/CASTOR OIL 60 GM TUBE TOP SCH ×2 (08:55→23:08)
[2019-02-02 14:00] VITALS: BP 139/70; PULSE 76; RESP 18
--- NOTE | 2019-02-02 14:35 | PN ---
Date/Time of Note Date/Time of Note DATE: 02/02/19 TIME: 14:34 Assessment/Plan VTE Prophylaxis Risk score (from Ns)>0 risk: 7 SCD applied (from [facility]): Yes Pharmacological prophylaxis: NA/contraindicated Pharm contraindication: other Assessment/Plan Hospital Course 59 yo female with chronic debility and leg weakness who presented with sepsis, severe anemia, and perforated viscus Sepsis: - Shock resolved, continue abx per ID Questionable perforated viscus -Etiology unclear -CT pelvis shows no colovesical fistula and no air outside of the bladder -No plans for intervention per surgery and urology - abx Hip AVN vs OM: - Abx per ID Macrocytic anemia secondary to elevated reticulocyte count - Status post 4 units of packed red blood cells - stable Iron deficiency: - IV iron Acute kidney injury secondary to severe septic shock-improving - Renal function improved to baseline Fall -No evidence of fracture on imaging Lower extremity pain likely secondary to muscle spasms from history of back surgery -Scheduled low dose Valium and baclofen Prophylaxis: SCDs, Protonix Discharge planning: Patient not a candidate for intermediate facility placement, anticipate DC to home with home health, patient will need to continue Zosyn IV as well as doxycycline for the next 10 days, showcase trimmer to arrange for home health, [employer] social worker to arrange for family conference, urology recommending to DC with Valadez catheter Result Diagram: 01/30/19 0437 01/29/19 0449 Results 24hrs Laboratory Tests Test 02/01/19 17:29 02/01/19 22:02 02/02/19 07:53 02/02/19 12:26 Bedside Glucose 217 109 145 278 H Subjective 24 Hr Interval Summary Constitutional: no complaints Exam/Review of Systems Exam Vitals Vital Signs Date Temp Pulse Resp B/P (MAP) Pulse Ox O2 O2 Flow FiO2 Time Delivery Rate 02/02/19 98.2 80 18 150/72 99 08:00 (98) 02/01/19 Room Air 14:06 Intake and Output 02/01/19 02/01/19 02/02/19 1515:00 23:00 07:00 IntakeIntake Total 100 ml 1500 ml 100 ml OutputOutput Total 1400 ml BalanceBalance 100 ml 100 ml 100 ml Constitutional: alert Respiratory: clear to auscultation Cardiovascular: regular rate and rhythm Gastrointestinal: soft; No distended Musculoskeletal: nl extremities to inspection Results Results 24hrs Laboratory Tests Test 02/01/19 17:29 02/01/19 22:02 02/02/19 07:53 02/02/19 12:26 Bedside Glucose 217 109 145 278 H Medications Medication Current Medications Albuterol (Ventolin Hfa) 4 puff Q2H RESP THERAPY PRN INH SHORTNESS OF BREATH; Start 01/17/19 at 00:00 Ipratropium [place] (Atrovent Hfa) 4 puff Q2H RESP THERAPY PRN INH SHORTNESS OF BREATH; Start 01/17/19 at 00:00 Acetaminophen (Tylenol Liquid) 650 mg Q6H PRN PO PAIN LEVEL 1-3 OR FEVER; Start 01/17/19 at 00:00 Miscellaneous Information 1 ea NOTE XX ; Start 01/17/19 at 11:00 Glucose (Glutose) 15 gm Q15M PRN PO DECREASED GLUCOSE; Start 01/17/19 at 11:00 Glucose (Glutose) 22.5 gm Q15M PRN PO DECREASED GLUCOSE; Start 01/17/19 at 11:00 Dextrose (D50w Syringe) 25 ml Q15M PRN IV DECREASED GLUCOSE; Start 01/17/19 at 11:00 Dextrose (D50w Syringe) 50 ml Q15M PRN IV DECREASED GLUCOSE; Start 01/17/19 at 11:00 Glucagon (Glucagen) 1 mg Q15M PRN IM DECREASED GLUCOSE; Start 01/17/19 at 11:00 Glucose (Glutose) 15 gm Q15M PRN BUCCAL DECREASED GLUCOSE; Start 01/17/19 at 11:00 Collagenase (Santyl) 1 applic DAILY TOP Last administered on 02/02/19at 08:48; Admin Dose 1 APPLIC; Start 01/17/19 at 17:00 Morphine Sulfate (morphine) 1 mg Q3H PRN IV SEVERE PAIN LEVEL 7-10 Last administered on 01/23/19at 12:54; Admin Dose 1 MG; Start 01/18/19 at 19:00 Piperacillin Sod/ Tazobactam Sod 100 ml @ 200 mls/hr Q6 IVPB Last administered on 02/02/19at 12:39; Admin Dose 200 MLS/HR; Start 01/21/19 at 12:00 Carvedilol (Coreg) 3.125 mg BID PO Last administered on 02/02/19at 08:45; Admin Dose 3.125 MG; Start 01/21/19 at 09:00 Hydralazine HCl (Apresoline) 10 mg Q4H PRN IV SBP >170 Last administered on 01/29/19 03:33; Admin Dose 10 MG; Start 01/21/19 at 14:30 Doxycycline Hyclate (Vibramycin) 100 mg BID PO Last administered on 02/02/19 08:44; Admin Dose 100 MG; Start 01/26/19 at 09:00 Nystatin (Nystatin Powder) 1 applic BID TOP Last administered on 02/02/19 08:47; Admin Dose 1 APPLIC; Start 01/27/19 at 21:00 Docusate Sodium (Colace) 100 mg BID PO Last administered on 02/02/19 08:46; Admin Dose 100 MG; Start 01/28/19 at 09:00 Sodium Hypochlorite (Dakins Diluted ()) 1 applic DAILY TP Last administered on 02/02/19 08:48; Admin Dose 1 APPLIC; Start 01/28/19 at 09:40 Citalopram Hydrobromide (Celexa) 10 mg DAILY PO Last administered on 02/02/19 08:46; Admin Dose 10 MG; Start 01/30/19 at 09:00 Insulin Aspart (Novolog Insulin Pen) NOVOLOG *MILD* ALGORITHM WITH MEALS BEDTIME SC Last administered on 02/02/19 12:50; Admin Dose 4 UNIT; Start 01/30/19 at 08:00 Diagnostic Test (Pha) (Accu-Chek) 1 ea 02 XX Last administered on 01/31/19 02:02; Admin Dose 1 EA; Start 01/31/19 at 02:00 Diazepam (Valium) 2 mg TID PO Last administered on 02/02/19 12:39; Admin Dose 2 MG; Start 02/01/19 at 21:00 Baclofen (Lioresal) 5 mg TID PO Last administered on 02/02/19 12:39; Admin Dose 5 MG; Start 02/01/19 at 21:00 Famotidine (Pepcid) 20 mg DAILY PO Last administered on 02/02/19 08:44; Admin Dose 20 MG; Start 02/02/19 at 09:00 Acetaminophen/ Hydrocodone Bitart ([place] (5/325)) 1 tab Q6H PRN PO SEVERE PAIN LEVEL 7-10; Start 02/02/19 at 12:00 Lorazepam (Ativan) 0.5 mg Q8H PRN PO ANXIETY; Start 02/02/19 at 12:00 ALLISON WOLFF Feb 02, 2019 14:35
[2019-02-02] MEDS: LORAZEPAM 0.5 MG TAB PO PRN (17:50)
--- NOTE | 2019-02-02 19:41 | PN ---
Date/Time of Note Date/Time of Note DATE: 02/02/19 TIME: 19:35 Assessment/Plan Lines/Catheters IV Catheter Type (from Nrsg): Mid Line Valadez in Place (from Nrsg): Yes Assessment/Plan Chief Complaint/Hosp Course 1. Pneumoperitoneum with probable perforated viscus. Previously family did not consent to proceeding to surgery. She has significantly improved. Extubated.: CT cystogram noted without contrast leak -Supportive measures -Diet as tolerated -Pain management -Per urology -DC planning okay from surgical standpoint 2. UTI: 2/2 #2 -abx per sensitivity -frequent bladder emptying/cath care 3. Hypochromic anemia: Status post PRBC transfusion, H&H stable -Monitor and transfuse as needed 4. Multiple wounds: + Wound cultures -local care> added Dakin's -frequent turning and off-loading -low air loss mattress -vitamin c -short term zinc -optimize nutrition _abx per ID 5. Transaminitis: Likely 2/2 #5 -Trend 6. NSTEMI: -Cardiac optimization>per cards 7. Possible left knee effusion -Per medical team; consider Ortho consult Thank you. Patient seen and examined in collaboration with Dr. Osei Sanford. Subjective 24 Hr Interval Summary feels okay. Intermittent generalized pain. Not participating in physical therap y. Tolerating diet. + bowel function. No fevers, chills, sob, congested cough, cp, palpitations, keita, dizziness, n/v/d/dysuria. Exam/Review of Systems Vital Signs Vitals Vital Signs Date Temp Pulse Resp B/P (MAP) Pulse Ox O2 O2 Flow FiO2 Time Delivery Rate 02/02/19 98.1 76 18 139/70 99 14:00 (93) 02/01/19 Room Air 14:06 Intake and Output 02/01/19 02/01/19 02/02/19 1515:00 23:00 07:00 IntakeIntake Total 100 ml 1500 ml 200 ml OutputOutput Total 1400 ml BalanceBalance 100 ml 100 ml 200 ml Exam Free Text/Dictation Constitutional: NAD, well developed; Psych: anxiety Head: normocephalic, atraumatic Eyes: nl conjunctiva, EOMI, nl lids, nl sclera ENMT: nl external ears & nose, no nl lips & teeth (poor dentition), mucosa pink and moist Neck: supple, non-tender; No jvd Respiratory: normal air movement; No congested cough, No labored breathing Cardiovascular: regular rate and rhythm, nl pulses; No edema Gastrointestinal: soft, non-distended, min tender, no rebound Genitourinary - Female: nl external genitalia Musculoskeletal: nl extremities to inspection, nl gait and stance Extremities: normal pulses Neurological: nl speech, no normal strength (generalized weakness) Skin: No rash or lesions, left hip wound: packed, scant drainage Lymph: nl lymph nodes Results Result Diagram: 01/30/19 0437 01/29/19 0449 MASSIMO WATKINS NP Feb 02, 2019 19:41
[2019-02-02 20:49] VITALS: BP 159/84; PULSE 83; RESP 20
[2019-02-03] MEDS: HYDROCODONE/APAP (5/325) TAB PO PRN ×2 (01:03→12:54)
[2019-02-03] MEDS: ACCU-CHEK XX SCH (02:00)
[2019-02-03] MEDS: LORAZEPAM 0.5 MG TAB PO PRN ×3 (02:48→22:24)
[2019-02-03 03:06] VITALS: BP 158/81; PULSE 76; RESP 18
[2019-02-03] MEDS: PIPER-TAZO 3.375 GM IV (PMX) 100 ML IVPB SCH ×4 (05:43→23:45)
[2019-02-03 08:00] VITALS: BP 123/50; PULSE 73; RESP 20
[2019-02-03] MEDS: INSULIN ASPART [NOVOLOG] 3 ML PEN SC SCH ×4 (08:00→21:00)
[2019-02-03] MEDS: DOXYCYCLINE 100 MG TAB PO SCH ×2 (08:22→21:22)
[2019-02-03] MEDS: BACLOFEN 10 MG TAB PO SCH ×3 (08:22→21:22)
[2019-02-03] MEDS: FAMOTIDINE 20 MG TAB PO SCH (08:23)
[2019-02-03] MEDS: CITALOPRAM 20 MG TAB PO SCH (08:23)
[2019-02-03] MEDS: DOCUSATE SODIUM 100 MG CAP PO SCH ×2 (08:23→21:22)
[2019-02-03] MEDS: DIAZEPAM 2 MG TAB PO SCH ×3 (08:23→21:22)
[2019-02-03] MEDS: COLLAGENASE 5 GM (UD JAR) TOP SCH (09:45)
[2019-02-03] MEDS: BALSAM PERU/CASTOR OIL 60 GM TUBE TOP SCH ×2 (09:45→21:26)
[2019-02-03] MEDS: NYSTATIN 30 GM POWDER BTL TOP SCH ×2 (09:45→21:26)
[2019-02-03] MEDS: DAKINS 0.0125%(1/40) 473 ML SOLUTION TP SCH (09:46)
--- NOTE | 2019-02-03 12:49 | PN ---
Date/Time of Note Date/Time of Note DATE: 02/03/19 TIME: 12:43 Assessment/Plan Lines/Catheters IV Catheter Type (from Nrsg): Mid Line Valadez in Place (from Nrs): Yes Assessment/Plan Chief Complaint/Hosp Course 1. Pneumoperitoneum with likely perforation of the bladder. Previously family did not consent to proceeding to surgery. She has significantly improved. Extubated.: CT cystogram noted without contrast leak -Supportive measures -Diet as tolerated -Pain management -Per urology -DC planning okay from surgical standpoint 2. UTI: 2/2 #2 -abx per sensitivity -frequent bladder emptying/cath care 3. Hypochromic anemia: Status post PRBC transfusion, H&H stable -Monitor and transfuse as needed 4. Multiple wounds: + Wound cultures -local care> added Dakin's -frequent turning and off-loading -low air loss mattress -vitamin c -short term zinc -optimize nutrition _abx per ID 5. Transaminitis: Likely 2/2 #5 -Trend 6. NSTEMI: -Cardiac optimization>per cards 7. Possible left knee effusion -Per medical team; consider Ortho consult 8. Multiple stool episodes: -Stool studies if persistent 9. Anxiety: Currently on Ativan -Psych optimization Thank you. Patient seen and examined in collaboration with Dr. Osei Sanford. Subjective 24 Hr Interval Summary Anxious. Abdominal discomfort that is improved with Ativan. + Bowel function. Multiple stools. No fevers, chills, sob, congested cough, cp, palpitations, keita, dizziness, nausea, vomiting, diarrhea, dysuria. Exam/Review of Systems Vital Signs Vitals Vital Signs Date Temp Pulse Resp B/P (MAP) Pulse Ox O2 O2 Flow FiO2 Time Delivery Rate 02/03/19 98.6 73 20 123/50 96 08:00 (74) 02/01/19 Room Air 14:06 Intake and Output 02/02/19 02/02/19 02/03/19 1515:00 23:00 07:00 IntakeIntake Total 100 ml 1600 ml 1900 ml OutputOutput Total 3000 ml 800 ml 800 ml BalanceBalance -2900 ml 800 ml 1100 ml Exam Free Text/Dictation Constitutional: NAD, well developed; Psych: anxiety moderate Head: normocephalic, atraumatic Eyes: nl conjunctiva, EOMI, nl lids, nl sclera ENMT: nl external ears & nose, no nl lips & teeth (poor dentition), mucosa pink and moist Neck: supple, non-tender; No jvd Respiratory: normal air movement; No congested cough, No labored breathing Cardiovascular: regular rate and rhythm, nl pulses; No edema Gastrointestinal: soft, non-distended, min tender, no rebound Genitourinary - Female: nl external genitalia Musculoskeletal: nl extremities to inspection, nl gait and stance Extremities: normal pulses Neurological: nl speech, no normal strength (generalized weakness) Skin: No rash or lesions, left hip wound: packed, scant drainage Lymph: nl lymph nodes Results Result Diagram: 01/30/19 0437 MASSIMO WATKINS NP Feb 03, 2019 12:49
[2019-02-03 14:00] VITALS: BP 125/76; PULSE 80; RESP 16
--- NOTE | 2019-02-03 15:06 | PN ---
Date/Time of Note Date/Time of Note DATE: 02/03/19 TIME: 15:05 Assessment/Plan VTE Prophylaxis Risk score (from Nsg)>0 risk: 1 SCD applied (from Nsg): Yes Pharmacological prophylaxis: NA/contraindicated Pharm contraindication: low risk/ambulating Lines/Catheters IV Catheter Type (from Nrsg): Mid Line Assessment/Plan Hospital Course 59 yo female with chronic debility and leg weakness who presented with sepsis, severe anemia, and perforated viscus Sepsis: - Shock resolved, continue abx per ID Questionable perforated viscus -Etiology unclear -CT pelvis shows no colovesical fistula and no air outside of the bladder -No plans for intervention per surgery and urology - abx Hip AVN vs OM: - Abx per ID Macrocytic anemia secondary to elevated reticulocyte count - Status post 4 units of packed red blood cells - stable Iron deficiency: - IV iron Acute kidney injury secondary to severe septic shock-improving - Renal function improved to baseline Fall -No evidence of fracture on imaging Lower extremity pain likely secondary to muscle spasms from history of back surgery -Scheduled low dose Valium and baclofen Prophylaxis: SCDs, Protonix Discharge planning: Pending placement in facility Result Diagram: 01/30/19 0437 Results 24hrs Laboratory Tests Test 02/02/19 17:18 02/02/19 20:39 02/03/19 08:07 02/03/19 12:46 Bedside Glucose 202 87 97 233 H Subjective 24 Hr Interval Summary Constitutional: no complaints Exam/Review of Systems Exam Vitals Vital Signs Date Temp Pulse Resp B/P (MAP) Pulse Ox O2 O2 Flow FiO2 Time Delivery Rate 02/03/19 98.6 73 20 123/50 96 08:00 (74) 02/01/19 Room Air 14:06 Intake and Output 02/02/19 02/02/19 02/03/19 1515:00 23:00 07:00 IntakeIntake Total 100 ml 1600 ml 1900 ml OutputOutput Total 3000 ml 800 ml 800 ml BalanceBalance -2900 ml 800 ml 1100 ml Constitutional: alert, oriented Respiratory: clear to auscultation Cardiovascular: regular rate and rhythm Gastrointestinal: soft; No distended Musculoskeletal: nl extremities to inspection Results Results 24hrs Laboratory Tests Test 02/02/19 17:18 02/02/19 20:39 02/03/19 08:07 02/03/19 12:46 Bedside Glucose 202 87 97 233 H Medications Medication Current Medications Albuterol (Ventolin Hfa) 4 puff Q2H RESP THERAPY PRN INH SHORTNESS OF BREATH; Start 01/17/19 at 00:00 Ipratropium [place] (Atrovent Hfa) 4 puff Q2H RESP THERAPY PRN INH SHORTNESS OF BREATH; Start 01/17/19 at 00:00 Acetaminophen (Tylenol Liquid) 650 mg Q6H PRN PO PAIN LEVEL 1-3 OR FEVER; Start 01/17/19 at 00:00 Miscellaneous Information 1 ea NOTE XX ; Start 01/17/19 at 11:00 Glucose (Glutose) 15 gm Q15M PRN PO DECREASED GLUCOSE; Start 01/17/19 at 11:00 Glucose (Glutose) 22.5 gm Q15M PRN PO DECREASED GLUCOSE; Start 01/17/19 at 11:00 Dextrose (D50w Syringe) 25 ml Q15M PRN IV DECREASED GLUCOSE; Start 01/17/19 at 11:00 Dextrose (D50w Syringe) 50 ml Q15M PRN IV DECREASED GLUCOSE; Start 01/17/19 at 11:00 Glucagon (Glucagen) 1 mg Q15M PRN IM DECREASED GLUCOSE; Start 01/17/19 at 11:00 Glucose (Glutose) 15 gm Q15M PRN BUCCAL DECREASED GLUCOSE; Start 01/17/19 at 11:00 Collagenase (Santyl) 1 applic DAILY TOP Last administered on 02/03/19at 09:45; Admin Dose 1 APPLIC; Start 01/17/19 at 17:00 Morphine Sulfate (morphine) 1 mg Q3H PRN IV SEVERE PAIN LEVEL 7-10 Last administered on 01/23/19at 12:54; Admin Dose 1 MG; Start 01/18/19 at 19:00 Piperacillin Sod/ Tazobactam Sod 100 ml @ 200 mls/hr Q6 IVPB Last administered on 02/03/19at 11:17; Admin Dose 200 MLS/HR; Start 01/21/19 at 12:00 Carvedilol (Coreg) 3.125 mg BID PO Last administered on 02/03/19at 08:24; Admin Dose 3.125 MG; Start 01/21/19 at 09:00 Hydralazine HCl (Apresoline) 10 mg Q4H PRN IV SBP >170 Last administered on 01/29/19 03:33; Admin Dose 10 MG; Start 01/21/19 at 14:30 Doxycycline Hyclate (Vibramycin) 100 mg BID PO Last administered on 02/03/19 08:22; Admin Dose 100 MG; Start 01/26/19 at 09:00 Nystatin (Nystatin Powder) 1 applic BID TOP Last administered on 02/03/19 09:45; Admin Dose 1 APPLIC; Start 01/27/19 at 21:00 Docusate Sodium (Colace) 100 mg BID PO Last administered on 02/03/19 08:23; Admin Dose 100 MG; Start 01/28/19 at 09:00 Sodium Hypochlorite (Dakins Diluted ()) 1 applic DAILY TP Last administered on 02/03/19 09:46; Admin Dose 1 APPLIC; Start 01/28/19 at 09:40 Citalopram Hydrobromide (Celexa) 10 mg DAILY PO Last administered on 02/03/19 08:23; Admin Dose 10 MG; Start 01/30/19 at 09:00 Insulin Aspart (Novolog Insulin Pen) NOVOLOG *MILD* ALGORITHM WITH MEALS BEDTIME SC Last administered on 02/03/19 12:53; Admin Dose 3 UNIT; Start 01/30/19 at 08:00 Diagnostic Test (Pha) (Accu-Chek) 1 ea 02 XX Last administered on 01/31/19 0 2:02; Admin Dose 1 EA; Start 01/31/19 at 02:00 Diazepam (Valium) 2 mg TID PO Last administered on 02/03/19 15:02; Admin Dose 2 MG; Start 02/01/19 at 21:00 Baclofen (Lioresal) 5 mg TID PO Last administered on 02/03/19 15:02; Admin Dose 5 MG; Start 02/01/19 at 21:00 Famotidine (Pepcid) 20 mg DAILY PO Last administered on 02/03/19 08:23; Admin Dose 20 MG; Start 02/02/19 at 09:00 Acetaminophen/ Hydrocodone Bitart ([place] (5/325)) 1 tab Q6H PRN PO SEVERE PAIN LEVEL 7-10 Last administered on 02/03/19 12:54; Admin Dose 1 TAB; Start 02/02/19 at 12:00 Lorazepam (Ativan) 0.5 mg Q8H PRN PO ANXIETY Last administered on 02/03/19at 11:14; Admin Dose 0.5 MG; Start 02/02/19 at 12:00 ALLISON WOLFF Feb 03, 2019 15:06
[2019-02-03 20:05] VITALS: BP 179/92; PULSE 80; RESP 18
[2019-02-03] MEDS: hydrALAzine 20 MG INJ IV PRN (22:17)
[2019-02-03 23:25] VITALS: BP 156/74; PULSE 76
[2019-02-04] MEDS: ACCU-CHEK XX SCH (02:00)
[2019-02-04 02:25] VITALS: BP 161/80; PULSE 81; RESP 17
[2019-02-04] MEDS: HYDROCODONE/APAP (5/325) TAB PO PRN ×3 (02:53→17:26)
[2019-02-04] MEDS: PIPER-TAZO 3.375 GM IV (PMX) 100 ML IVPB SCH ×4 (06:06→23:41)
[2019-02-04] MEDS: LORAZEPAM 0.5 MG TAB PO PRN ×3 (06:16→23:41)
--- NOTE | 2019-02-04 07:25 | CONS ---
Assessment/Plan Assessment/Plan Hospital Course (Demo Recall) 1) pneumoperitoneum and sepsis could be related to pt taking motrin for some pain continue with vanco/zosyn at present to renally dose them await decision by family regarding surgery vs hospice 01/18 - continue with vanco/zosyn CoNS in blood, only one bottle, likely represents contamination e.coli in urine is sensitive to the zosyn pt has EtOH abuse lactic acid has normalized 01/19 - MRSA in nasal area, likely perf is gastric or duodenal to continue with vanco at present and zosyn decrease in platelets noted, may need to change vanco if trend continues 01/20 - no significant change a.m. labs are pending due to blood tx overnight on vanco/zosyn pt has GNR in blood cx, ID is pending but sensitive to zosyn 01/21 - increase dose of zosyn as renal function is further improved awaits CT abd/pelv repeat to see if pt can start to eat alcaligenes was also in blood cx and is a stool bacteria 01/22 - pt passed swallow eval for oral contrast, but CT is still pending continue with vanco/zosyn at present 01/24 - await CT results, pt has tolerated clear liquids though on vanco/zosyn to continue at present pt will need zosyn thru 01/29/19 at least (pt will need eval for possible L hip osteo and if present will need a longer course of the zosyn when pt on full orals will change vanco to doxycycline 01/26 - continue with zosyn, change vanco to doxycycline 01/27 - stable and eating soft foods without difficulty pt to get CT cystogram to see if pt has fistula from bladder 01/31 - pt is eating well without abd pain CT cystogram is pending consider pain management team consult 02/02 - CT cystogram did not show fistula await Dr. [place] input regarding possible cystoscopy recommend pain management consult 2)severe anemia pt is being transfused only smears of stool since admission to get hemoccult 01/18 - Hgb is more stable 01/19 - drop in Hgb again, will need blood tx again 01/20 - pt tx again, a.m. labs are pending 01/21 - Hgb is at 9 now 01/22 - Hgb is stable 01/28 - Hgb remains stable 3) ARF with pyuria and hematuria (e.coli in urine) improving with hydration and blood tx await urine cx results 01/18 - improving urine output and creatinine urine cx has e.coli that is sensitive to zosyn renal u/s suggests hydro on the R and possible renal clot or debris on L 01/19 - further improvement in creatinine on zosyn for e.coli in urine 01/21 - further improvement in renal function 01/22 - creatinine almost normal 01/24 - creatinine has normalized while on vanco 4) elevated troponins likely due to stress from severe anemia 5) hepatitis again likely due to sepsis and severe anemia check hep serologies 01/18 - hep serologies are pending 01/19 - neg hep serologies and HIV LFT's are trending down 6) L hip eschar/decubitus with probable osteo unstageable wound cx was ordered 01/18 - wound cx has not been done, nurse was informed 01/19 - wound cx was obtained and is pending 01/20 - wound cx has GPC growing 01/21 - MRSA in wound cx from hip, continue with vanco at present platelets are improving 01/22 - MRSA and alcaligenes was in wound cx ESR is extremely high, pt will likely need MRI of L hip area to see if osteomyelitis is present when pt is more stable 01/24 - when pt is eating will order MRI of L hip to see if osteo is present (pt has deep ulcer there and very high ESR) continue vanco/zosyn at present 01/26 - I will order MRI with contrast to L hip area on zosyn/doxy now 01/28 - MRI done and shows probable septic arthritis and possible early osteo I would continue with doxy/zosyn for 4 week regimen (thru 02/12/19) ESR was greatly improved (too improved?), to repeat ESR in a.m. 01/31 - doubt pt has AVN of hip but more likely infection given depth of ulcer the same area ESR is much improved since admission continue with zosyn/doxy thru 02/12/1902/02 - stable on zosyn/doxy, check ESR in a.m. continue with current antibiotics thru 02/12 7) hypoalbuminemia pt came in with low albumin, she has likely been sick or not eating well for a while 8) CoNS bacteremia 01/18 - only one bottle has CoNS, likely this is contamination continue with vanco at present, await final wound cx results 9) decrease in platelets 01/19 - consider change of vanco if trend continues 01/20 - her MRSA is sensitive to doxy so could change vanco to that 01/21 - platelets are improved 01/22 - platelets are WNL 10) GNR in original blood cx (alcaligenes faecalis) 01/20 - ID is pending but it is sensitive to zosyn 01/21 - alcaligenes is a stool bacteria and likely related to her peritonitis continue with zosyn 01/22 - alcaligines was also in wound cx when pt is eating and more stable will order MRI of L hip to verify no osteo or abscess is present 01/24 - pt will need at least zosyn thru 01/29, longer if osteo of L hip is present 11) LE weakness consider re-consult with surgeon who did the surgery last year 02/02 - pt is not participating in PT due to pain Recommend Dr. Westbrook re-consult pt (surgeon that did her cervical surgery last year) recommend pain management 02/04 - not improving, pt not getting PT Consultation Date/Type/Reason Admit Date/Time Jan 16, 2019 at 23:33 Initial Consult Date 01/17/19 Type of Consult ID Requesting Provider: SONAL ALBERT MD Date/Time of Note DATE: 02/04/19 TIME: 07:22 24 HR Interval Summary Free Text/Dictation spoke to nurse getting oral ativan and pain meds still unable to straighten out her legs no V, D Exam/Review of Systems Exam Vitals Vital Signs Date Temp Pulse Resp B/P (MAP) Pulse Ox O2 O2 Flow FiO2 Time Delivery Rate 02/04/19 98.4 81 17 161/80 98 02:25 (107) 02/01/19 Room Air 14:06 Intake and Output 02/03/19 02/03/19 02/04/19 1515:00 23:00 07:00 IntakeIntake Total 450 ml 450 ml 200 ml OutputOutput Total 850 ml 1900 ml BalanceBalance 450 ml -400 ml -1700 ml Constitutional: other (asleep) Results Results 24hrs Laboratory Tests Test 02/03/19 08:07 02/03/19 12:46 02/03/19 17:56 02/03/19 21:21 Bedside Glucose 97 233 H 118 98 Medications Medication Current Medications Albuterol (Ventolin Hfa) 4 puff Q2H RESP THERAPY PRN INH SHORTNESS OF BREATH; Start 01/17/19 at 00:00 Ipratropium [place] (Atrovent Hfa) 4 puff Q2H RESP THERAPY PRN INH SHORTNESS OF BREATH; Start 01/17/19 at 00:00 Acetaminophen (Tylenol Liquid) 650 mg Q6H PRN PO PAIN LEVEL 1-3 OR FEVER; Start 01/17/19 at 00:00 Miscellaneous Information 1 ea NOTE XX ; Start 01/17/19 at 11:00 Glucose (Glutose) 15 gm Q15M PRN PO DECREASED GLUCOSE; Start 01/17/19 at 11:00 Glucose (Glutose) 22.5 gm Q15M PRN PO DECREASED GLUCOSE; Start 01/17/19 at 11:00 Dextrose (D50w Syringe) 25 ml Q15M PRN IV DECREASED GLUCOSE; Start 01/17/19 at 11:00 Dextrose (D50w Syringe) 50 ml Q15M PRN IV DECREASED GLUCOSE; Start 01/17/19 at 11:00 Glucagon (Glucagen) 1 mg Q15M PRN IM DECREASED GLUCOSE; Start 01/17/19 at 11:00 Glucose (Glutose) 15 gm Q15M PRN BUCCAL DECREASED GLUCOSE; Start 01/17/19 at 11:00 Collagenase (Santyl) 1 applic DAILY TOP Last administered on 02/03/19at 09:45; Admin Dose 1 APPLIC; Start 01/17/19 at 17:00 Morphine Sulfate (morphine) 1 mg Q3H PRN IV SEVERE PAIN LEVEL 7-10 Last administered on 01/23/19at 12:54; Admin Dose 1 MG; Start 01/18/19 at 19:00 Piperacillin Sod/ Tazobactam Sod 100 ml @ 200 mls/hr Q6 IVPB Last administered on 02/04/19at 06:06; Admin Dose 200 MLS/HR; Start 01/21/19 at 12:00 Carvedilol (Coreg) 3.125 mg BID PO Last administered on 02/03/19at 21:25; Admin Dose 3.125 MG; Start 01/21/19 at 09:00 Hydralazine HCl (Apresoline) 10 mg Q4H PRN IV SBP >170 Last administered on 02/03/19 22:17; Admin Dose 10 MG; Start 01/21/19 at 14:30 Doxycycline Hyclate (Vibramycin) 100 mg BID PO Last administered on 02/03/19 21:22; Admin Dose 100 MG; Start 01/26/19 at 09:00 Nystatin (Nystatin Powder) 1 applic BID TOP Last administered on 02/03/19 21:26; Admin Dose 1 APPLIC; Start 01/27/19 at 21:00 Docusate Sodium (Colace) 100 mg BID PO Last administered on 02/03/19 21:22; Admin Dose 100 MG; Start 01/28/19 at 09:00 Sodium Hypochlorite ([place]ak[place] Diluted ()) 1 applic DAILY TP Last administered on 02/03/19 09:46; Admin Dose 1 APPLIC; Start 01/28/19 at 09:40 Citalopram Hydrobromide (Celexa) 10 mg DAILY PO Last administered on 02/03/19 08:23; Admin Dose 10 MG; Start 01/30/19 at 09:00 Insulin Aspart (Novolog Insulin Pen) NOVOLOG *MILD* ALGORITHM WITH MEALS BEDTIME SC Last administered on 02/03/19 12:53; Admin Dose 3 UNIT; Start 01/30/19 at 08:00 Diagnostic Test (Pha) (Accu-Chek) 1 ea 02 XX Last administered on 01/31/19 02:02; Admin Dose 1 EA; Start 01/31/19 at 02:00 Diazepam (Valium) 2 mg TID PO Last administered on 02/03/19 21:22; Admin Dose 2 MG; Start 02/01/19 at 21:00 Baclofen (Lioresal) 5 mg TID PO Last administered on 02/03/19 21:22; Admin Dose 5 MG; Start 02/01/19 at 21:00 Famotidine (Pepcid) 20 mg DAILY PO Last administered on 02/03/19 08:23; Admin Dose 20 MG; Start 02/02/19 at 09:00 Acetaminophen/ Hydrocodone Bitart ([place] (5/325)) 1 tab Q6H PRN PO SEVERE PAIN LEVEL 7-10 Last administered on 02/04/19 02:53; Admin Dose 1 TAB; Start 02/02/19 at 12:00 Lorazepam (Ativan) 0.5 mg Q8H PRN PO ANXIETY Last administered on 02/04/19at 06:16; Admin Dose 0.5 MG; Start 02/02/19 at 12:00 PATSY LEVY MD Feb 04, 2019 07:25
[2019-02-04] MEDS: INSULIN ASPART [NOVOLOG] 3 ML PEN SC SCH ×4 (08:00→21:00)
[2019-02-04 08:19] VITALS: BP 168/83; PULSE 71; RESP 20
[2019-02-04] MEDS: DIAZEPAM 2 MG TAB PO SCH ×3 (08:27→22:07)
[2019-02-04] MEDS: CITALOPRAM 20 MG TAB PO SCH (08:27)
[2019-02-04] MEDS: DOXYCYCLINE 100 MG TAB PO SCH ×2 (08:27→22:08)
[2019-02-04] MEDS: DOCUSATE SODIUM 100 MG CAP PO SCH ×2 (08:27→22:07)
[2019-02-04] MEDS: FAMOTIDINE 20 MG TAB PO SCH (08:27)
[2019-02-04] MEDS: BACLOFEN 10 MG TAB PO SCH ×3 (08:27→22:07)
[2019-02-04] MEDS: BALSAM PERU/CASTOR OIL 60 GM TUBE TOP SCH ×2 (08:28→22:08)
[2019-02-04] MEDS: COLLAGENASE 5 GM (UD JAR) TOP SCH (08:28)
[2019-02-04] MEDS: NYSTATIN 30 GM POWDER BTL TOP SCH ×2 (08:28→22:08)
[2019-02-04] MEDS: DAKINS 0.0125%(1/40) 473 ML SOLUTION TP SCH (08:29)
--- NOTE | 2019-02-04 11:29 | PN ---
Date/Time of Note Date/Time of Note DATE: 02/04/19 TIME: 11:28 Assessment/Plan Lines/Catheters IV Catheter Type (from Nrs): Mid Line Valadez in Place (from Nrs): Yes Assessment/Plan Chief Complaint/Hosp Course 1. Pneumoperitoneum with likely perforation of the bladder. Previously family did not consent to proceeding to surgery. She has significantly improved. Extubated.: CT cystogram noted without contrast leak -Supportive measures -Diet as tolerated -Pain management -Per urology -DC okay from surgical standpoint 2. UTI: 2/2 #2 -abx per sensitivity -frequent bladder emptying/cath care 3. Hypochromic anemia: Status post PRBC transfusion, H&H stable -Monitor and transfuse as needed 4. Multiple wounds: + Wound cultures -local care> added Dakin's -frequent turning and off-loading -low air loss mattress -vitamin c -short term zinc -optimize nutrition _abx per ID 5. Transaminitis: Likely 2/2 #5 -Trend 6. NSTEMI: -Cardiac optimization>per cards 7. Possible left knee effusion -Per medical team; consider Ortho consult 8. Multiple stool episodes: -Stool studies if persistent 9. Anxiety: Currently on Ativan -Psych optimization Thank you. Patient seen and examined in collaboration with Dr. Osei Sanford. Subjective 24 Hr Interval Summary Feels well. Anxious. No acute abdominal pain. + Bowel function. Tolerating diet. No fevers, chills, sob, congested cough, cp, palpitations, keita, dizziness, nausea, vomiting, diarrhea, dysuria. Exam/Review of Systems Vital Signs Vitals Vital Signs Date Temp Pulse Resp B/P (MAP) Pulse Ox O2 O2 Flow FiO2 Time Delivery Rate 02/04/19 98.4 71 20 168/83 96 08:19 (111) 02/01/19 Room Air 14:06 Intake and Output 02/03/19 02/03/19 02/04/19 1515:00 23:00 07:00 IntakeIntake Total 450 ml 450 ml 200 ml OutputOutput Total 850 ml 1900 ml BalanceBalance 450 ml -400 ml -1700 ml Exam Free Text/Dictation Constitutional: NAD, well developed; Psych: anxiety moderate Head: normocephalic, atraumatic Eyes: nl conjunctiva, EOMI, nl lids, nl sclera ENMT: nl external ears & nose, no nl lips & teeth (poor dentition), mucosa pink and moist Neck: supple, non-tender; No jvd Respiratory: normal air movement; No congested cough, No labored breathing Cardiovascular: regular rate and rhythm, nl pulses; No edema Gastrointestinal: soft, non-distended, min tender, no rebound Genitourinary - Female: nl external genitalia Musculoskeletal: nl extremities to inspection, nl gait and stance Extremities: normal pulses Neurological: nl speech, no normal strength (generalized weakness) Skin: No rash or lesions, left hip wound: packed, scant drainage Lymph: nl lymph nodes Results Result Diagram: 02/04/19 0848 MASSIMO WATKINS NP Feb 04, 2019 11:29
--- NOTE | 2019-02-04 11:56 | PN ---
Date/Time of Note Date/Time of Note DATE: 02/04/19 TIME: 11:56 Assessment/Plan VTE Prophylaxis Risk score (from Ns)>0 risk: 4 SCD applied (from Ns): Yes Pharmacological prophylaxis: NA/contraindicated Pharm contraindication: other Lines/Catheters IV Catheter Type (from [facility]): Mid Line Assessment/Plan Hospital Course 59 yo female with chronic debility and leg weakness who presented with sepsis, severe anemia, and perforated viscus Sepsis: - Shock resolved, continue abx per ID Questionable perforated viscus -Etiology unclear -CT pelvis shows no colovesical fistula and no air outside of the bladder -No plans for intervention per surgery and urology - abx Hip AVN vs OM: - Abx per ID Macrocytic anemia secondary to elevated reticulocyte count - Status post 4 units of packed red blood cells - stable Iron deficiency: - IV iron Acute kidney injury secondary to severe septic shock-improving - Renal function improved to baseline Fall -No evidence of fracture on imaging Lower extremity pain likely secondary to muscle spasms from history of back surgery -Scheduled low dose Valium and baclofen Prophylaxis: SCDs, Protonix Discharge planning: Pending placement in facility Result Diagram: 02/04/19 0848 Results 24hrs Laboratory Tests Test 02/03/19 12:46 02/03/19 17:56 02/03/19 21:21 02/04/19 08:27 Bedside Glucose 233 H 118 98 85 Test 02/04/19 08:48 White Blood Count 3.2 #L Red Blood Count 3.17 L Hemoglobin 9.3 L Hematocrit 28.9 L Mean Corpuscular 91.2 Volume Mean Corpuscular 29.3 Hemoglobin Mean Corpuscular 32.2 Hemoglobin Concent Red Cell 15.8 H Distribution Width Platelet Count 182 Mean Platelet Volume 10.1 Immature 0.600 H Granulocytes % Neutrophils % 39.8 Lymphocytes % 45.9 Monocytes % 9.7 Eosinophils % 3.1 Basophils % 0.9 Nucleated Red Blood 0.0 Cells % Immature 0.020 Granulocytes # Neutrophils # 1.3 L Lymphocytes # 1.5 Monocytes # 0.3 Eosinophils # 0.1 Basophils # 0.0 Nucleated Red Blood 0.0 Cells # Iron Level 57 Total Iron Binding 188 L Capacity Percent Iron 30 Saturation Ferritin 484.0 H Subjective 24 Hr Interval Summary Constitutional: no complaints Exam/Review of Systems Exam Vitals Vital Signs Date Temp Pulse Resp B/P (MAP) Pulse Ox O2 O2 Flow FiO2 Time Delivery Rate 02/04/19 98.4 71 20 168/83 96 08:19 (111) 02/01/19 Room Air 14:06 Intake and Output 02/03/19 02/03/19 02/04/19 1515:00 23:00 07:00 IntakeIntake Total 450 ml 450 ml 200 ml OutputOutput Total 850 ml 1900 ml BalanceBalance 450 ml -400 ml -1700 ml Constitutional: alert, oriented Respiratory: clear to auscultation Cardiovascular: regular rate and rhythm Gastrointestinal: soft; No distended Musculoskeletal: nl extremities to inspection Results Results 24hrs Laboratory Tests Test 02/03/19 12:46 02/03/19 17:56 02/03/19 21:21 02/04/19 08:27 Bedside Glucose 233 H 118 98 85 Test 02/04/19 08:48 White Blood Count 3.2 #L Red Blood Count 3.17 L Hemoglobin 9.3 L Hematocrit 28.9 L Mean Corpuscular 91.2 Volume Mean Corpuscular 29.3 Hemoglobin Mean Corpuscular 32.2 Hemoglobin Concent Red Cell 15.8 H Distribution Width Platelet Count 182 Mean Platelet Volume 10.1 Immature 0.600 H Granulocytes % Neutrophils % 39.8 Lymphocytes % 45.9 Monocytes % 9.7 Eosinophils % 3.1 Basophils % 0.9 Nucleated Red Blood 0.0 Cells % Immature 0.020 Granulocytes # Neutrophils # 1.3 L Lymphocytes # 1.5 Monocytes # 0.3 Eosinophils # 0.1 Basophils # 0.0 Nucleated Red Blood 0.0 Cells # Iron Level 57 Total Iron Binding 188 L Capacity Percent Iron 30 Saturation Ferritin 484.0 H Medications Medication Current Medications Albuterol (Ventolin Hfa) 4 puff Q2H RESP THERAPY PRN INH SHORTNESS OF BREATH; Start 01/17/19 at 00:00 Ipratropium [place] (Atrovent Hfa) 4 puff Q2H RESP THERAPY PRN INH SHORTNESS OF BREATH; Start 01/17/19 at 00:00 Acetaminophen (Tylenol Liquid) 650 mg Q6H PRN PO PAIN LEVEL 1-3 OR FEVER; Start 01/17/19 at 00:00 Miscellaneous Information 1 ea NOTE XX ; Start 01/17/19 at 11:00 Glucose (Glutose) 15 gm Q15M PRN PO DECREASED GLUCOSE; Start 01/17/19 at 11:00 Glucose (Glutose) 22.5 gm Q15M PRN PO DECREASED GLUCOSE; Start 01/17/19 at 11:00 Dextrose (D50w Syringe) 25 ml Q15M PRN IV DECREASED GLUCOSE; Start 01/17/19 at 11:00 Dextrose (D50w Syringe) 50 ml Q15M PRN IV DECREASED GLUCOSE; Start 01/17/19 at 11:00 Glucagon (Glucagen) 1 mg Q15M PRN IM DECREASED GLUCOSE; Start 01/17/19 at 11:00 Glucose (Glutose) 15 gm Q15M PRN BUCCAL DECREASED GLUCOSE; Start 01/17/19 at 11:00 Collagenase (Santyl) 1 applic DAILY TOP Last administered on 02/04/19 08:28; Admin Dose 1 APPLIC; Start 01/17/19 at 17:00 Morphine Sulfate (morphine) 1 mg Q3H PRN IV SEVERE PAIN LEVEL 7-10 Last administered on 01/23/19 12:54; Admin Dose 1 MG; Start 01/18/19 at 19:00 Piperacillin Sod/ Tazobactam Sod 100 ml @ 200 mls/hr Q6 IVPB Last administered on 02/04/19 06:06; Admin Dose 200 MLS/HR; Start 01/21/19 at 12:00 Carvedilol (Coreg) 3.125 mg BID PO Last administered on 02/04/19 08:28; Admin Dose 3.125 MG; Start 01/21/19 at 09:00 Hydralazine HCl (Apresoline) 10 mg Q4H PRN IV SBP >170 Last administered on 02/03/19 22:17; Admin Dose 10 MG; Start 01/21/19 at 14:30 Doxycycline Hyclate (Vibramycin) 100 mg BID PO Last administered on 02/04/19 08:27; Admin Dose 100 MG; Start 01/26/19 at 09:00 Nystatin (Nystatin Powder) 1 applic BID TOP Last administered on 02/04/19 08:28; Admin Dose 1 APPLIC; Start 01/27/19 at 21:00 Docusate Sodium (Colace) 100 mg BID PO Last administered on 02/04/19 08:27; Admin Dose 100 MG; Start 01/28/19 at 09:00 Sodium Hypochlorite (Dakins Diluted ()) 1 applic DAILY TP Last administered on 02/04/19 08:29; Admin Dose 1 APPLIC; Start 01/28/19 at 09:40 Citalopram Hydrobromide (Celexa) 10 mg DAILY PO Last administered on 02/04/19 08:27; Admin Dose 10 MG; Start 01/30/19 at 09:00 Insulin Aspart (Novolog Insulin Pen) NOVOLOG *MILD* ALGORITHM WITH MEALS BEDTIME SC Last administered on 02/03/19 12:53; Admin Dose 3 UNIT; Start 01/30/19 at 08:00 Diagnostic Test (Pha) (Accu-Chek) 1 ea 02 XX Last administered on 01/31/19 02:02; Admin Dose 1 EA; Start 01/31/19 at 02:00 Diazepam (Valium) 2 mg TID PO Last administered on 02/04/19 08:27; Admin Dose 2 MG; Start 02/01/19 at 21:00 Baclofen (Lioresal) 5 mg TID PO Last administered on 02/04/19 08:27; Admin Dose 5 MG; Start 02/01/19 at 21:00 Famotidine (Pepcid) 20 mg DAILY PO Last administered on 02/04/19 08:27; Admin Dose 20 MG; Start 02/02/19 at 09:00 Acetaminophen/ Hydrocodone Bitart ([place] (5/325)) 1 tab Q6H PRN PO SEVERE PAIN LEVEL 7-10 Last administered on 02/04/19 11:14; Admin Dose 1 TAB; Start 02/02/19 at 12:00 Lorazepam (Ativan) 0.5 mg Q8H PRN PO ANXIETY Last administered on 02/04/19 06:16; Admin Dose 0.5 MG; Start 02/02/19 at 12:00 ALLISON WOLFF Feb 04, 2019 11:56
[2019-02-04 13:52] VITALS: BP 168/80; PULSE 69; RESP 20
[2019-02-04 20:00] VITALS: BP 157/76; PULSE 77; RESP 18
[2019-02-05] VITALS (8 sets, daily range): BP systolic 144–180; BP diastolic 68–96; PULSE 62–84; RESP 18
[2019-02-05] MEDS: ACCU-CHEK XX SCH (02:00)
[2019-02-05] MEDS ORDERED: DIPHENHYDRAMINE 25 MG CAP PO ONE (02:30)
[2019-02-05] MEDS: PIPER-TAZO 3.375 GM IV (PMX) 100 ML IVPB SCH ×3 (05:12→17:43)
[2019-02-05] MEDS: hydrALAzine 20 MG INJ IV PRN (05:12)
[2019-02-05] MEDS: INSULIN ASPART [NOVOLOG] 3 ML PEN SC SCH ×4 (08:00→21:00)
[2019-02-05] MEDS: DOCUSATE SODIUM 100 MG CAP PO SCH ×2 (09:09→21:00)
[2019-02-05] MEDS: DOXYCYCLINE 100 MG TAB PO SCH ×2 (09:09→21:17)
[2019-02-05] MEDS: FAMOTIDINE 20 MG TAB PO SCH (09:09)
[2019-02-05] MEDS: BACLOFEN 10 MG TAB PO SCH ×3 (09:09→21:17)
[2019-02-05] MEDS: CITALOPRAM 20 MG TAB PO SCH (09:09)
[2019-02-05] MEDS: DIAZEPAM 2 MG TAB PO SCH ×3 (09:09→21:17)
[2019-02-05] MEDS: BALSAM PERU/CASTOR OIL 60 GM TUBE TOP SCH ×2 (09:13→21:25)
[2019-02-05] MEDS: COLLAGENASE 5 GM (UD JAR) TOP SCH (09:13)
[2019-02-05] MEDS: NYSTATIN 30 GM POWDER BTL TOP SCH ×2 (09:13→21:24)
[2019-02-05] MEDS: DAKINS 0.0125%(1/40) 473 ML SOLUTION TP SCH (09:14)
[2019-02-05] MEDS: LORAZEPAM 0.5 MG TAB PO PRN ×2 (10:27→18:54)
[2019-02-05] MEDS: HYDROCODONE/APAP (5/325) TAB PO PRN ×2 (11:20→17:43)
--- NOTE | 2019-02-05 11:30 | PN ---
Date/Time of Note Date/Time of Note DATE: 02/05/19 TIME: 11:29 Assessment/Plan VTE Prophylaxis Risk score (from Ns)>0 risk: 3 SCD applied (from Ns): Yes Pharmacological prophylaxis: NA/contraindicated Pharm contraindication: low risk/ambulating Lines/Catheters IV Catheter Type (from Nrs): Mid Line Assessment/Plan Hospital Course 59 yo female with chronic debility and leg weakness who presented with sepsis, severe anemia, and perforated viscus Sepsis: - Shock resolved, continue abx per ID Questionable perforated viscus -Etiology unclear -CT pelvis shows no colovesical fistula and no air outside of the bladder -No plans for intervention per surgery and urology - abx Hip AVN vs OM: - Abx per ID Macrocytic anemia secondary to elevated reticulocyte count - Status post 4 units of packed red blood cells - stable Iron deficiency: - IV iron Acute kidney injury secondary to severe septic shock-improving - Renal function improved to baseline Fall -No evidence of fracture on imaging Lower extremity pain likely secondary to muscle spasms from history of back surgery -Scheduled low dose Valium and baclofen Prophylaxis: SCDs, Protonix Discharge planning: Pending placement in facility Result Diagram: 02/05/19 0907 02/05/19 0907 Results 24hrs Laboratory Tests Test 02/04/19 12:12 02/04/19 17:25 02/04/19 22:06 02/05/19 08:12 Bedside Glucose 102 116 99 83 Test 02/05/19 09:07 White Blood Count 4.3 #L Red Blood Count 3.60 L Hemoglobin 10.5 L Hematocrit 32.1 L Mean Corpuscular 89.2 Volume Mean Corpuscular 29.2 Hemoglobin Mean Corpuscular 32.7 Hemoglobin Concent Red Cell 15.9 H Distribution Width Platelet Count 219 # Mean Platelet Volume 10.0 Immature 0.500 H Granulocytes % Neutrophils % 53.3 Lymphocytes % 33.6 Monocytes % 8.4 Eosinophils % 3.0 Basophils % 1.2 Nucleated Red Blood 0.0 Cells % Immature 0.020 Granulocytes # Neutrophils # 2.3 Lymphocytes # 1.4 Monocytes # 0.4 Eosinophils # 0.1 Basophils # 0.1 Nucleated Red Blood 0.0 Cells # Erythrocyte 55.0 H Sedimentation Rate Sodium Level 140 Potassium Level 3.1 L Chloride Level 109 Carbon Dioxide Level 21 Anion Gap 10 Blood Urea Nitrogen 26 H Creatinine 1.35 H Est Glomerular 40 L Filtrat Rate mL/min Glucose Level 129 Calcium Level 9.3 Total Bilirubin 0.2 Direct Bilirubin 0.00 Indirect Bilirubin 0.2 Aspartate Amino 20 Transf (AST/SGOT) Alanine 12 L Aminotransferase (AL T/SGPT) Alkaline Phosphatase 150 H Total Protein 6.7 Albumin 3.1 L Globulin 3.60 H Albumin/Globulin 0.86 Ratio Subjective 24 Hr Interval Summary Constitutional: no complaints Exam/Review of Systems Exam Vitals Vital Signs Date Temp Pulse Resp B/P (MAP) Pulse Ox O2 O2 Flow FiO2 Time Delivery Rate 02/05/19 98.6 80 18 144/74 98 Room Air 08:33 (97) Intake and Output 02/04/19 02/04/19 02/05/19 1515:00 23:00 07:00 IntakeIntake Total 360 ml 860 ml 200 ml OutputOutput Total 600 ml 500 ml BalanceBalance -240 ml 360 ml 200 ml Constitutional: alert, oriented Respiratory: clear to auscultation Cardiovascular: regular rate and rhythm Gastrointestinal: soft; No distended Musculoskeletal: nl extremities to inspection Results Results 24hrs Laboratory Tests Test 02/04/19 12:12 02/04/19 17:25 02/04/19 22:06 02/05/19 08:12 Bedside Glucose 102 116 99 83 Test 02/05/19 09:07 White Blood Count 4.3 #L Red Blood Count 3.60 L Hemoglobin 10.5 L Hematocrit 32.1 L Mean Corpuscular 89.2 Volume Mean Corpuscular 29.2 Hemoglobin Mean Corpuscular 32.7 Hemoglobin Concent Red Cell 15.9 H Distribution Width Platelet Count 219 # Mean Platelet Volume 10.0 Immature 0.500 H Granulocytes % Neutrophils % 53.3 Lymphocytes % 33.6 Monocytes % 8.4 Eosinophils % 3.0 Basophils % 1.2 Nucleated Red Blood 0.0 Cells % Immature 0.020 Granulocytes # Neutrophils # 2.3 Lymphocytes # 1.4 Monocytes # 0.4 Eosinophils # 0.1 Basophils # 0.1 Nucleated Red Blood 0.0 Cells # Erythrocyte 55.0 H Sedimentation Rate Sodium Level 140 Potassium Level 3.1 L Chloride Level 109 Carbon Dioxide Level 21 Anion Gap 10 Blood Urea Nitrogen 26 H Creatinine 1.35 H Est Glomerular 40 L Filtrat Rate mL/min Glucose Level 129 Calcium Level 9.3 Total Bilirubin 0.2 Direct Bilirubin 0.00 Indirect Bilirubin 0.2 Aspartate Amino 20 Transf (AST/SGOT) Alanine 12 L Aminotransferase (AL T/SGPT) Alkaline Phosphatase 150 H Total Protein 6.7 Albumin 3.1 L Globulin 3.60 H Albumin/Globulin 0.86 Ratio Medications Medication Current Medications Albuterol (Ventolin Hfa) 4 puff Q2H RESP THERAPY PRN INH SHORTNESS OF BREATH; Start 01/17/19 at 00:00 Ipratropium [place] (Atrovent Hfa) 4 puff Q2H RESP THERAPY PRN INH SHORTNESS OF BREATH; Start 01/17/19 at 00:00 Acetaminophen (Tylenol Liquid) 650 mg Q6H PRN PO PAIN LEVEL 1-3 OR FEVER; Start 01/17/19 at 00:00 Miscellaneous Information 1 ea NOTE XX ; Start 01/17/19 at 11:00 Glucose (Glutose) 15 gm Q15M PRN PO DECREASED GLUCOSE; Start 01/17/19 at 11:00 Glucose (Glutose) 22.5 gm Q15M PRN PO DECREASED GLUCOSE; Start 01/17/19 at 11:00 Dextrose (D50w Syringe) 25 ml Q15M PRN IV DECREASED GLUCOSE; Start 01/17/19 at 11:00 Dextrose (D50w Syringe) 50 ml Q15M PRN IV DECREASED GLUCOSE; Start 01/17/19 at 11:00 Glucagon (Glucagen) 1 mg Q15M PRN IM DECREASED GLUCOSE; Start 01/17/19 at 11:00 Glucose (Glutose) 15 gm Q15M PRN BUCCAL DECREASED GLUCOSE; Start 01/17/19 at 11:00 Collagenase (Santyl) 1 applic DAILY TOP Last administered on 02/05/19at 09:13; Admin Dose 1 APPLIC; Start 01/17/19 at 17:00 Morphine Sulfate (morphine) 1 mg Q3H PRN IV SEVERE PAIN LEVEL 7-10 Last administered on 01/23/19at 12:54; Admin Dose 1 MG; Start 01/18/19 at 19:00 Piperacillin Sod/ Tazobactam Sod 100 ml @ 200 mls/hr Q6 IVPB Last administered on 02/05/19at 11:20; Admin Dose 200 MLS/HR; Start 01/21/19 at 12:00 Carvedilol (Coreg) 3.125 mg BID PO Last administered on 02/05/19 09:10; Admin Dose 3.125 MG; Start 01/21/19 at 09:00 Hydralazine HCl (Apresoline) 10 mg Q4H PRN IV SBP >170 Last administered on 02/05/19 05:12; Admin Dose 10 MG; Start 01/21/19 at 14:30 Doxycycline Hyclate (Vibramycin) 100 mg BID PO Last administered on 02/05/19 09:09; Admin Dose 100 MG; Start 01/26/19 at 09:00 Nystatin (Nystatin Powder) 1 applic BID TOP Last administered on 02/05/19 09:13; Admin Dose 1 APPLIC; Start 01/27/19 at 21:00 Docusate Sodium (Colace) 100 mg BID PO Last administered on 02/05/19 09:09; Admin Dose 100 MG; Start 01/28/19 at 09:00 Sodium Hypochlorite (Dakins Diluted (40)) 1 applic DAILY TP Last administered on 02/05/19 09:14; Admin Dose 1 APPLIC; Start 01/28/19 at 09:40 Citalopram Hydrobromide (Celexa) 10 mg DAILY PO Last administered on 02/05/19 09:09; Admin Dose 10 MG; Start 01/30/19 at 09:00 Insulin Aspart (Novolog Insulin Pen) NOVOLOG *MILD* ALGORITHM WITH MEALS BEDTIME SC Last administered on 02/03/19 12:53; Admin Dose 3 UNIT; Start 01/30/19 at 08:00 Diagnostic Test (Pha) (Accu-Chek) 1 ea 02 XX Last administered on 01/31/19 02:02; Admin Dose 1 EA; Start 01/31/19 at 02:00 Diazepam (Valium) 2 mg TID PO Last administered on 02/05/19 09:09; Admin Dose 2 MG; Start 02/01/19 at 21:00 Baclofen (Lioresal) 5 mg TID PO Last administered on 02/05/19 09:09; Admin Dose 5 MG; Start 02/01/19 at 21:00 Famotidine (Pepcid) 20 mg DAILY PO Last administered on 02/05/19 09:09; Admin Dose 20 MG; Start 02/02/19 at 09:00 Acetaminophen/ Hydrocodone Bitart ([place] (5/325)) 1 tab Q6H PRN PO SEVERE PAIN LEVEL 7-10 Last administered on 02/05/19at 11:20; Admin Dose 1 TAB; Start 02/02/19 at 12:00 Lorazepam (Ativan) 0.5 mg Q8H PRN PO ANXIETY Last administered on 02/05/19 10:27; Admin Dose 0.5 MG; Start 02/02/19 at 12:00 ALLISON WOLFF Feb 05, 2019 11:30
[2019-02-05] MEDS ORDERED: POTASSIUM CHLORIDE (SR) 20 MEQ TAB PO STA (11:32)
--- NOTE | 2019-02-05 23:15 | PN ---
Date/Time of Note Date/Time of Note DATE: 02/05/19 TIME: 23:15 Assessment/Plan Lines/Catheters IV Catheter Type (from Nrsg): Mid Line Assessment/Plan Chief Complaint/Hosp Course 1. Pneumoperitoneum with likely perforation of the bladder. Previously family did not consent to proceeding to surgery. She has significantly improved. Extubated; CT cystogram noted without contrast leak -Supportive measures -Diet as tolerated -Pain management -Per urology -DC okay from surgical standpoint 2. UTI: 2/2 #2 -abx per sensitivity -frequent bladder emptying/cath care 3. Hypochromic anemia: Status post PRBC transfusion, H&H stable -Monitor and transfuse as needed 4. Multiple wounds: + Wound cultures -local care> added Dakin's -frequent turning and off-loading -low air loss mattress -vitamin c -short term zinc -optimize nutrition _abx per ID 5. Transaminitis: Likely 2/ #5 -Trend 6. NSTEMI: -Cardiac optimization>per cards 7. Possible left knee effusion -Per medical team; consider Ortho consult 8. Multiple stool episodes: -Stool studies if persistent 9. Anxiety: Currently on Ativan -Psych optimization Thank you Subjective 24 Hr Interval Summary Feels well. Anxious. No acute abdominal pain. + Bowel function. Tolerating diet. No fevers, chills, sob, congested cough, cp, palpitations, keita, dizziness, nausea, vomiting, diarrhea, dysuria Exam/Review of Systems Vital Signs Vitals Vital Signs Date Temp Pulse Resp B/P (MAP) Pulse Ox O2 O2 Flow FiO2 Time Delivery Rate 02/05/19 98.0 73 18 148/74 98 20:00 (98) 02/05/19 Room Air 14:32 Intake and Output 02/04/19 02/04/19 02/05/19 1414:59 22:59 06:59 IntakeIntake Total 360 ml 860 ml 200 ml OutputOutput Total 600 ml 500 ml BalanceBalance -240 ml 360 ml 200 ml Exam Free Text/Dictation Constitutional: NAD, well developed; Psych: anxiety moderate Head: normocephalic, atraumatic Eyes: nl conjunctiva, EOMI, nl lids, nl sclera ENMT: nl external ears & nose, no nl lips & teeth (poor dentition), mucosa pink and moist Neck: supple, non-tender; No jvd Respiratory: normal air movement; No congested cough, No labored breathing Cardiovascular: regular rate and rhythm, nl pulses; No edema Gastrointestinal: soft, non-distended, min tender, no rebound Genitourinary - Female: nl external genitalia Musculoskeletal: nl extremities to inspection, nl gait and stance Extremities: normal pulses Neurological: nl speech, no normal strength (generalized weakness) Skin: No rash or lesions, left hip wound: packed, scant drainage Lymph: nl lymph nodes Results Result Diagram: 02/05/19 0907 02/05/19 0907 ALEK HANDLEY MD Feb 05, 2019 23:15
[2019-02-06] MEDS: PIPER-TAZO 3.375 GM IV (PMX) 100 ML IVPB SCH ×5 (01:48→23:39)
[2019-02-06] MEDS: ACCU-CHEK XX SCH (02:00)
[2019-02-06 02:39] VITALS: BP 143/77; PULSE 76; RESP 18
[2019-02-06] MEDS: morphine 2 MG INJ IV PRN (04:51)
[2019-02-06] MEDS: HYDROCODONE/APAP (5/325) TAB PO PRN ×3 (05:00→20:27)
[2019-02-06 07:56] VITALS: BP 178/88; PULSE 16; PULSE 18; PULSE 78; RESP 18
[2019-02-06] MEDS: INSULIN ASPART [NOVOLOG] 3 ML PEN SC SCH ×4 (08:00→21:00)
[2019-02-06] MEDS: COLLAGENASE 5 GM (UD JAR) TOP SCH (08:37)
[2019-02-06] MEDS: CITALOPRAM 20 MG TAB PO SCH (08:38)
[2019-02-06] MEDS: DOXYCYCLINE 100 MG TAB PO SCH ×2 (08:38→20:27)
[2019-02-06] MEDS: BACLOFEN 10 MG TAB PO SCH ×3 (08:42→20:26)
[2019-02-06] MEDS: FAMOTIDINE 20 MG TAB PO SCH (08:44)
[2019-02-06] MEDS: NYSTATIN 30 GM POWDER BTL TOP SCH ×2 (08:45→20:29)
[2019-02-06] MEDS: DAKINS 0.0125%(1/40) 473 ML SOLUTION TP SCH (08:45)
[2019-02-06] MEDS: BALSAM PERU/CASTOR OIL 60 GM TUBE TOP SCH ×2 (08:45→20:28)
[2019-02-06] MEDS: DOCUSATE SODIUM 100 MG CAP PO SCH ×2 (09:00→20:28)
[2019-02-06 09:09] VITALS: PULSE 68
[2019-02-06] MEDS: DIAZEPAM 2 MG TAB PO SCH ×3 (10:14→20:26)
[2019-02-06 13:21] VITALS: BP 153/99; PULSE 71; RESP 18
[2019-02-06] MEDS ORDERED: LORAZEPAM 1 MG TAB ONE (14:45)
--- NOTE | 2019-02-06 16:57 | PN ---
Date/Time of Note Date/Time of Note DATE: 02/06/19 TIME: 16:54 Assessment/Plan VTE Prophylaxis Risk score (from Ns)>0 risk: 4 SCD applied (from Ns): Yes Pharmacological prophylaxis: NA/contraindicated Pharm contraindication: other Lines/Catheters IV Catheter Type (from Nrsg): Mid Line Assessment/Plan Hospital Course 59 yo female with chronic debility and leg weakness who presented with sepsis, severe anemia, and perforated viscus Sepsis: - Shock resolved, continue abx per ID Questionable perforated viscus -Etiology unclear -CT pelvis shows no colovesical fistula and no air outside of the bladder -No plans for intervention per surgery and urology - abx Hip AVN vs OM: - Abx per ID Macrocytic anemia secondary to elevated reticulocyte count - Status post 4 units of packed red blood cells - stable Iron deficiency: - IV iron Acute kidney injury secondary to severe septic shock-improving - Renal function improved to baseline Fall -No evidence of fracture on imaging Lower extremity pain likely secondary to muscle spasms from history of back surgery -Scheduled low dose Valium and baclofen Abdominal pain secondary to gas and/or gastritis -Continue simethicone and Pepcid, add Carafate Prophylaxis: SCDs, Protonix Discharge planning: Pending placement in facility, family unable to care for patient at home Result Diagram: 02/05/19 0907 02/05/19 0907 Results 24hrs Laboratory Tests Test 02/05/19 17:34 02/05/19 21:22 02/06/19 08:19 02/06/19 12:29 Bedside Glucose 106 119 83 106 Subjective 24 Hr Interval Summary Constitutional: no complaints Exam/Review of Systems Exam Vitals Vital Signs Date Temp Pulse Resp B/P (MAP) Pulse Ox O2 O2 Flow FiO2 Time Delivery Rate 02/06/19 98.2 71 18 153/99 99 Room Air 13:21 (117) 71 Intake and Output 02/05/19 02/05/19 02/06/19 1515:00 23:00 07:00 IntakeIntake Total 1500 ml 520 ml 300 ml OutputOutput Total 2300 ml 900 ml 1800 ml BalanceBalance -800 ml -380 ml -1500 ml Constitutional: alert, oriented Respiratory: clear to auscultation Cardiovascular: regular rate and rhythm Gastrointestinal: soft; No distended Musculoskeletal: nl extremities to inspection Results Results 24hrs Laboratory Tests Test 02/05/19 17:34 02/05/19 21:22 02/06/19 08:19 02/06/19 12:29 Bedside Glucose 106 119 83 106 Medications Medication Current Medications Albuterol (Ventolin Hfa) 4 puff Q2H RESP THERAPY PRN INH SHORTNESS OF BREATH; Start 01/17/19 at 00:00 Ipratropium [place] (Atrovent Hfa) 4 puff Q2H RESP THERAPY PRN INH SHORTNESS OF BREATH; Start 01/17/19 at 00:00 Acetaminophen (Tylenol Liquid) 650 mg Q6H PRN PO PAIN LEVEL 1-3 OR FEVER; Start 01/17/19 at 00:00 Miscellaneous Information 1 ea NOTE XX ; Start 01/17/19 at 11:00 Glucose (Glutose) 15 gm Q15M PRN PO DECREASED GLUCOSE; Start 01/17/19 at 11:00 Glucose (Glutose) 22.5 gm Q15M PRN PO DECREASED GLUCOSE; Start 01/17/19 at 11:00 Dextrose (D50w Syringe) 25 ml Q15M PRN IV DECREASED GLUCOSE; Start 01/17/19 at 11:00 Dextrose (D50w Syringe) 50 ml Q15M PRN IV DECREASED GLUCOSE; Start 01/17/19 at 11:00 Glucagon (Glucagen) 1 mg Q15M PRN IM DECREASED GLUCOSE; Start 01/17/19 at 11:00 Glucose (Glutose) 15 gm Q15M PRN BUCCAL DECREASED GLUCOSE; Start 01/17/19 at 11:00 Collagenase (Santyl) 1 applic DAILY TOP Last administered on 02/06/19at 08:37; Admin Dose 1 APPLIC; Start 01/17/19 at 17:00 Morphine Sulfate (morphine) 1 mg Q3H PRN IV SEVERE PAIN LEVEL 7-10 Last administered on 01/23/19at 12:54; Admin Dose 1 MG; Start 01/18/19 at 19:00 Piperacillin Sod/ Tazobactam Sod 100 ml @ 200 mls/hr Q6 IVPB Last administered on 02/06/19at 12:32; Admin Dose 200 MLS/HR; Start 01/21/19 at 12:00 Carvedilol (Coreg) 3.125 mg BID PO Last administered on 02/06/19at 08:41; Admin Dose 3.125 MG; Start 01/21/19 at 09:00 Hydralazine HCl (Apresoline) 10 mg Q4H PRN IV SBP >170 Last administered on 02/05/19 05:12; Admin Dose 10 MG; Start 01/21/19 at 14:30 Doxycycline Hyclate (Vibramycin) 100 mg BID PO Last administered on 02/06/19 0 8:38; Admin Dose 100 MG; Start 01/26/19 at 09:00 Nystatin (Nystatin Powder) 1 applic BID TOP Last administered on 02/06/19 08:45; Admin Dose 1 APPLIC; Start 01/27/19 at 21:00 Docusate Sodium (Colace) 100 mg BID PO Last administered on 02/05/19 09:09; Admin Dose 100 MG; Start 01/28/19 at 09:00 Sodium Hypochlorite (Dakins Diluted ()) 1 applic DAILY TP Last administered on 02/06/19 08:45; Admin Dose 1 APPLIC; Start 01/28/19 at 09:40 Citalopram Hydrobromide (Celexa) 10 mg DAILY PO Last administered on 02/06/19 08:38; Admin Dose 10 MG; Start 01/30/19 at 09:00 Insulin Aspart (Novolog Insulin Pen) NOVOLOG *MILD* ALGORITHM WITH MEALS BEDTIME SC Last administered on 02/03/19 12:53; Admin Dose 3 UNIT; Start 01/30/19 at 08:00 Diagnostic Test (Pha) (Accu-Chek) 1 ea 02 XX Last administered on 01/31/19 02:02; Admin Dose 1 EA; Start 01/31/19 at 02:00 Diazepam (Valium) 2 mg TID PO Last administered on 02/06/19 12:29; Admin Dose 2 MG; Start 02/01/19 at 21:00 Baclofen (Lioresal) 5 mg TID PO Last administered on 02/06/19 12:30; Admin Dose 5 MG; Start 02/01/19 at 21:00 Famotidine (Pepcid) 20 mg DAILY PO Last administered on 02/06/19 08:44; Admin Dose 20 MG; Start 02/02/19 at 09:00 Acetaminophen/ Hydrocodone Bitart ([place] (5/325)) 1 tab Q6H PRN PO SEVERE PAIN LEVEL 7-10 Last administered on 02/06/19 14:07; Admin Dose 1 TAB; Start 02/02/19 at 12:00 Lorazepam (Ativan) 0.5 mg Q8H PRN PO ANXIETY Last administered on 02/05/19at 18:54; Admin Dose 0.5 MG; Start 02/02/19 at 12:00 Simethicone (Mylicon) 80 mg Q8 PO Last administered on 02/06/19 13:14; Admin Dose 80 MG; Start 02/05/19 at 14:00 ALLISON WOLFF Feb 06, 2019 16:57
[2019-02-06] MEDS: LORAZEPAM 0.5 MG TAB PO PRN (18:23)
[2019-02-06 20:00] VITALS: BP 166/86; PULSE 75; RESP 19
--- NOTE | 2019-02-06 21:11 | PN ---
Date/Time of Note Date/Time of Note DATE: 02/06/19 TIME: 21:09 Assessment/Plan Lines/Catheters IV Catheter Type (from Nrs): Mid Line Valadez in Place (from Nrs): Yes Assessment/Plan Chief Complaint/Hosp Course 1. Pneumoperitoneum with likely perforation of the bladder. Previously family did not consent to proceeding to surgery. She has significantly improved. Extubated; CT cystogram noted without contrast leak -Supportive measures -Diet as tolerated -Pain management -Per urology -DC okay from surgical standpoint 2. UTI: 2/2 #2 -abx per sensitivity -frequent bladder emptying/cath care 3. Hypochromic anemia: Status post PRBC transfusion, H&H stable -Monitor and transfuse as needed 4. Multiple wounds: + Wound cultures -local care> added Dakin's -frequent turning and off-loading -low air loss mattress -vitamin c -short term zinc -optimize nutrition _abx per ID 5. Transaminitis: Likely 2/2 #5 -Trend 6. NSTEMI: -Cardiac optimization>per cards 7. Possible left knee effusion -Per medical team; consider Ortho consult 8. Multiple stool episodes: -Stool studies if persistent 9. Anxiety: Currently on Ativan -Psych optimization Thank you Subjective 24 Hr Interval Summary Anxious at times. No acute abdominal pain. + Bowel function. Tolerating diet. No fevers, chills, sob, congested cough, cp, palpitations, keita, dizziness, nausea, vomiting, diarrhea, dysuria Exam/Review of Systems Vital Signs Vitals Vital Signs Date Temp Pulse Resp B/P (MAP) Pulse Ox O2 O2 Flow FiO2 Time Delivery Rate 02/06/19 98.1 75 19 166/86 97 20:00 (112) 02/06/19 Room Air 13:21 Intake and Output 02/05/19 02/05/19 02/06/19 1515:00 23:00 07:00 IntakeIntake Total 1500 ml 520 ml 300 ml OutputOutput Total 2300 ml 900 ml 1800 ml BalanceBalance -800 ml -380 ml -1500 ml Exam Free Text/Dictation Constitutional: NAD, well developed; Psych: anxiety moderate Head: normocephalic, atraumatic Eyes: nl conjunctiva, EOMI, nl lids, nl sclera ENMT: nl external ears & nose, no nl lips & teeth (poor dentition), mucosa pink and moist Neck: supple, non-tender; No jvd Respiratory: normal air movement; No congested cough, No labored breathing Cardiovascular: regular rate and rhythm, nl pulses; No edema Gastrointestinal: soft, non-distended, min tender, no rebound Genitourinary - Female: nl external genitalia Musculoskeletal: nl extremities to inspection, nl gait and stance Extremities: normal pulses Neurological: nl speech, no normal strength (generalized weakness) Skin: No rash or lesions, left hip wound: packed, scant drainage Lymph: nl lymph nodes Results Result Diagram: 02/05/19 0907 02/05/19 0907 ALEK HANDLEY MD Feb 06, 2019 21:11
[2019-02-06] MEDS: SUCRALFATE 1 GM TAB PO SCH (21:34)
[2019-02-07 02:00] VITALS: BP 164/98; PULSE 68; RESP 19
[2019-02-07] MEDS: ACCU-CHEK XX SCH (02:00)
[2019-02-07] MEDS: HYDROCODONE/APAP (5/325) TAB PO PRN ×2 (02:30→09:08)
[2019-02-07] MEDS: PIPER-TAZO 3.375 GM IV (PMX) 100 ML IVPB SCH ×3 (05:43→18:44)
[2019-02-07] MEDS: LORAZEPAM 0.5 MG TAB PO PRN ×3 (05:46→23:04)
[2019-02-07] MEDS: SUCRALFATE 1 GM TAB PO SCH ×2 (06:00→12:41)
[2019-02-07 07:50] VITALS: BP 180/85; PULSE 60; RESP 18
[2019-02-07] MEDS: INSULIN ASPART [NOVOLOG] 3 ML PEN SC SCH ×4 (08:00→20:40)
[2019-02-07] MEDS: DOCUSATE SODIUM 100 MG CAP PO SCH ×2 (09:00→20:41)
[2019-02-07] MEDS: CITALOPRAM 20 MG TAB PO SCH (09:04)
[2019-02-07] MEDS: COLLAGENASE 5 GM (UD JAR) TOP SCH (09:04)
[2019-02-07] MEDS: DIAZEPAM 2 MG TAB PO SCH ×3 (09:05→20:41)
[2019-02-07] MEDS: DOXYCYCLINE 100 MG TAB PO SCH ×2 (09:05→20:42)
[2019-02-07] MEDS: BACLOFEN 10 MG TAB PO SCH ×3 (09:07→20:41)
[2019-02-07] MEDS: FAMOTIDINE 20 MG TAB PO SCH (09:07)
[2019-02-07] MEDS: BALSAM PERU/CASTOR OIL 60 GM TUBE TOP SCH ×2 (09:12→20:37)
[2019-02-07] MEDS: DAKINS 0.0125%(1/40) 473 ML SOLUTION TP SCH (09:12)
[2019-02-07] MEDS: NYSTATIN 30 GM POWDER BTL TOP SCH ×2 (09:12→20:37)
[2019-02-07 10:08] VITALS: BP 134/69; PULSE 67; RESP 18
--- NOTE | 2019-02-07 10:50 | CONS ---
Assessment/Plan Assessment/Plan Hospital Course (Demo Recall) #Anemia -patient's initial Hg of 2.6 was likely secondary to GIB and perforated viscous. Stool ob at that time was negative. -anemia panel is consistent with iron deficiency -s/p Ferrlecit 125 mg IV x 5 days completed 01/30 -Hg ok at 10.5 #Sepsis -continue antibiotics #Perforated viscous -continue conservative management per surgery #JACKIE -renal following -Creatine improving Consultation Date/Type/Reason Admit Date/Time Jan 16, 2019 at 23:33 Initial Consult Date 01/25/19 Type of Consult hematology Reason for Consultation anemia Requesting Provider: SONAL ALBERT MD Date/Time of Note DATE: 02/07/19 TIME: 10:48 24 HR Interval Summary Free Text/Dictation pt completed IV iron on 01/30 Exam/Review of Systems Exam Vitals Vital Signs Date Temp Pulse Resp B/P (MAP) Pulse Ox O2 O2 Flow FiO2 Time Delivery Rate 02/07/19 67 18 134/69 Room Air 10:08 (90) 02/07/19 98.2 97 07:50 Intake and Output 02/06/19 02/06/19 02/07/19 1515:00 23:00 07:00 IntakeIntake Total 100 ml 560 ml 200 ml OutputOutput Total 1000 ml 2300 ml BalanceBalance 100 ml -440 ml -2100 ml Constitutional: alert, oriented Psych: no complaints Head: normocephalic Eyes: nl conjunctiva ENMT: nl external ears & nose Neck: supple Respiratory: clear to auscultation Cardiovascular: regular rate and rhythm Gastrointestinal: soft Musculoskeletal: nl extremities to inspection Results Result Diagram: 02/05/19 0902/05/19 0907 Results 24hrs Laboratory Tests Test 02/06/19 12:29 02/06/19 17:10 02/06/19 20:33 02/07/19 09:03 Bedside Glucose 106 75 89 101 Medications Medication Current Medications Albuterol (Ventolin Hfa) 4 puff Q2H RESP THERAPY PRN INH SHORTNESS OF BREATH; Start 01/17/19 at 00:00 Ipratropium [place] (Atrovent Hfa) 4 puff Q2H RESP THERAPY PRN INH SHORTNESS OF BREATH; Start 01/17/19 at 00:00 Acetaminophen (Tylenol Liquid) 650 mg Q6H PRN PO PAIN LEVEL 1-3 OR FEVER; Start 01/17/19 at 00:00 Miscellaneous Information 1 ea NOTE XX ; Start 01/17/19 at 11:00 Glucose (Glutose) 15 gm Q15M PRN PO DECREASED GLUCOSE; Start 01/17/19 at 11:00 Glucose (Glutose) 22.5 gm Q15M PRN PO DECREASED GLUCOSE; Start 01/17/19 at 11:00 Dextrose (D50w Syringe) 25 ml Q15M PRN IV DECREASED GLUCOSE; Start 01/17/19 at 11:00 Dextrose (D50w Syringe) 50 ml Q15M PRN IV DECREASED GLUCOSE; Start 01/17/19 at 11:00 Glucagon (Glucagen) 1 mg Q15M PRN IM DECREASED GLUCOSE; Start 01/17/19 at 11:00 Glucose (Glutose) 15 gm Q15M PRN BUCCAL DECREASED GLUCOSE; Start 01/17/19 at 11:00 Collagenase (Santyl) 1 applic DAILY TOP Last administered on 02/07/19at 09:04; Admin Dose 1 APPLIC; Start 01/17/19 at 17:00 Morphine Sulfate (morphine) 1 mg Q3H PRN IV SEVERE PAIN LEVEL 7-10 Last administered on 01/23/19at 12:54; Admin Dose 1 MG; Start 01/18/19 at 19:00 Piperacillin Sod/ Tazobactam Sod 100 ml @ 200 mls/hr Q6 IVPB Last administered on 02/07/19at 05:43; Admin Dose 200 MLS/HR; Start 01/21/19 at 12:00 Carvedilol (Coreg) 3.125 mg BID PO Last administered on 02/07/19at 09:05; Admin Dose 3.125 MG; Start 01/21/19 at 09:00 Hydralazine HCl (Apresoline) 10 mg Q4H PRN IV SBP >170 Last administered on 02/05/19 05:12; Admin Dose 10 MG; Start 01/21/19 at 14:30 Doxycycline Hyclate (Vibramycin) 100 mg BID PO Last administered on 02/07/19 09:05; Admin Dose 100 MG; Start 01/26/19 at 09:00 Nystatin (Nystatin Powder) 1 applic BID TOP Last administered on 02/07/19at 09:12; Admin Dose 1 APPLIC; Start 01/27/19 at 21:00 Docusate Sodium (Colace) 100 mg BID PO Last administered on 02/05/19 09:09; Admin Dose 100 MG; Start 01/28/19 at 09:00 Sodium Hypochlorite (Dakins Diluted ()) 1 applic DAILY TP Last administered on 02/07/19 09:12; Admin Dose 1 APPLIC; Start 01/28/19 at 09:40 Citalopram Hydrobromide (Celexa) 10 mg DAILY PO Last administered on 02/07/19 09:04; Admin Dose 10 MG; Start 01/30/19 at 09:00 Insulin Aspart (Novolog Insulin Pen) NOVOLOG *MILD* ALGORITHM WITH MEALS BEDTIME SC Last administered on 02/03/19 12:53; Admin Dose 3 UNIT; Start 01/30/19 at 08:00 Diagnostic Test (Pha) (Accu-Chek) 1 ea 02 XX Last administered on 01/31/19 02:02; Admin Dose 1 EA; Start 01/31/19 at 02:00 Diazepam (Valium) 2 mg TID PO Last administered on 02/07/19 09:05; Admin Dose 2 MG; Start 02/01/19 at 21:00 Baclofen (Lioresal) 5 mg TID PO Last administered on 02/07/19 09:07; Admin Dose 5 MG; Start 02/01/19 at 21:00 Famotidine (Pepcid) 20 mg DAILY PO Last administered on 02/07/19 09:07; Admin Dose 20 MG; Start 02/02/19 at 09:00 Acetaminophen/ Hydrocodone Bitart ([place] (5/325)) 1 tab Q6H PRN PO SEVERE PAIN LEVEL 7-10 Last administered on 02/07/19 09:08; Admin Dose 1 TAB; Start 02/02/19 at 12:00 Lorazepam (Ativan) 0.5 mg Q8H PRN PO ANXIETY Last administered on 02/07/19 05:46; Admin Dose 0.5 MG; Start 02/02/19 at 12:00 Simethicone (Mylicon) 80 mg Q8 PO Last administered on 02/07/19 05:43; Admin Dose 80 MG; Start 02/05/19 at 14:00 Sucralfate (Carafate) 1 gm Q8 PO Last administered on 02/06/19at 21:34; Admin Dose 1 GM; Start 02/06/19 at 22:00 RAJI DIXON M.D. Feb 07, 2019 10:50
[2019-02-07] MEDS ORDERED: OXYCODONE/ACETAMINOPHEN (5/325) TAB PO ONE (12:00)
[2019-02-07 14:33] VITALS: BP 130/68; PULSE 73; RESP 17
--- NOTE | 2019-02-07 16:15 | PN ---
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 CT pyelogram with fistulia. Management per Dr finley - Continue may Macrocytic anemia secondary to elevated reticulocyte count - Status post 4 units of packed red blood cells - stable Iron deficiency: - IV iron Acute kidney injury secondary to severe septic shock-improving - Renal function improved to baseline Prophylaxis: SCDs, Protonix Discharge planning; To [facility] when workup/management completed Result Diagram: 02/05/1990602/05/19 09 Results 24hrs Laboratory Tests Test 02/06/19 17:10 02/06/19 20:33 02/07/19 09:03 02/07/19 12:30 Bedside Glucose 75 89 101 194 Subjective 24 Hr Interval Summary Constitutional: no complaints, improved Eyes: no complaints ENT: no complaints Respiratory: no complaints Cardiovascular: no complaints Gastrointestinal: no complaints Genitourinary: no complaints Musculoskeletal: no complaints Skin: no complaints Neurologic: no complaints Endocrine: no complaints Lymphatic: no complaints Psychological: no complaints, nl mood/affect Immunologic: no complaints Exam/Review of Systems Exam Vitals Vital Signs Date Temp Pulse Resp B/P (MAP) Pulse Ox O2 O2 Flow FiO2 Time Delivery Rate 02/07/19 97.9 73 17 130/68 98 14:33 (88) 02/07/19 Room Air 10:08 Intake and Output 02/06/19 02/06/19 02/07/19 1515:00 23:00 07:00 IntakeIntake Total 100 ml 560 ml 200 ml OutputOutput Total 1000 ml 2300 ml BalanceBalance 100 ml -440 ml -2100 ml Results Results 24hrs Laboratory Tests Test 02/06/19 17:10 02/06/19 20:33 02/07/19 09:03 02/07/19 12:30 Bedside Glucose 75 89 101 194 Medications Medication Current Medications Albuterol (Ventolin Hfa) 4 puff Q2H RESP THERAPY PRN INH SHORTNESS OF BREATH; Start 01/17/19 at 00:00 Ipratropium [place] (Atrovent Hfa) 4 puff Q2H RESP THERAPY PRN INH SHORTNESS OF BREATH; Start 01/17/19 at 00:00 Acetaminophen (Tylenol Liquid) 650 mg Q6H PRN PO PAIN LEVEL 1-3 OR FEVER; Start 01/17/19 at 00:00 Miscellaneous Information 1 ea NOTE XX ; Start 01/17/19 at 11:00 Glucose (Glutose) 15 gm Q15M PRN PO DECREASED GLUCOSE; Start 01/17/19 at 11:00 Glucose (Glutose) 22.5 gm Q15M PRN PO DECREASED GLUCOSE; Start 01/17/19 at 11:00 Dextrose (D50w Syringe) 25 ml Q15M PRN IV DECREASED GLUCOSE; Start 01/17/19 at 11:00 Dextrose (D50w Syringe) 50 ml Q15M PRN IV DECREASED GLUCOSE; Start 01/17/19 at 11:00 Glucagon (Glucagen) 1 mg Q15M PRN IM DECREASED GLUCOSE; Start 01/17/19 at 11:00 Glucose (Glutose) 15 gm Q15M PRN BUCCAL DECREASED GLUCOSE; Start 01/17/19 at 11:00 Collagenase (Santyl) 1 applic DAILY TOP Last administered on 02/07/19at 09:04; Admin Dose 1 APPLIC; Start 01/17/19 at 17:00 Piperacillin Sod/ Tazobactam Sod 100 ml @ 200 mls/hr Q6 IVPB Last administered on 02/07/19at 12:28; Admin Dose 200 MLS/HR; Start 01/21/19 at 12:00 Carvedilol (Coreg) 3.125 mg BID PO Last administered on 02/07/19at 09:05; Admin Dose 3.125 MG; Start 01/21/19 at 09:00 Hydralazine HCl (Apresoline) 10 mg Q4H PRN IV SBP >170 Last administered on 02/05/19at 05:12; Admin Dose 10 MG; Start 01/21/19 at 14:30 Doxycycline Hyclate (Vibramycin) 100 mg BID PO Last administered on 02/07/19 09:05; Admin Dose 100 MG; Start 01/26/19 at 09:00 Nystatin (Nystatin Powder) 1 applic BID TOP Last administered on 02/07/19 09:12; Admin Dose 1 APPLIC; Start 01/27/19 at 21:00 Docusate Sodium (Colace) 100 mg BID PO Last administered on 02/05/19 09:09; Admin Dose 100 MG; Start 01/28/19 at 09:00 Sodium Hypochlorite (Dakins Diluted ()) 1 applic DAILY TP Last administered on 02/07/19 09:12; Admin Dose 1 APPLIC; Start 01/28/19 at 09:40 Citalopram Hydrobromide (Celexa) 10 mg DAILY PO Last administered on 02/07/19 09:04; Admin Dose 10 MG; Start 01/30/19 at 09:00 Insulin Aspart (Novolog Insulin Pen) NOVOLOG *MILD* ALGORITHM WITH MEALS BEDTIME SC Last administered on 02/07/19 12:33; Admin Dose 2 UNIT; Start 01/30/19 at 08:00 Diagnostic Test (Pha) (Accu-Chek) 1 ea 02 XX Last administered on 01/31/19 02:02; Admin Dose 1 EA; Start 01/31/19 at 02:00 Diazepam (Valium) 2 mg TID PO Last administered on 02/07/19 12:28; Admin Dose 2 MG; Start 02/01/19 at 21:00 Baclofen (Lioresal) 5 mg TID PO Last administered on 02/07/19 12:28; Admin Dose 5 MG; Start 02/01/19 at 21:00 Famotidine (Pepcid) 20 mg DAILY PO Last administered on 02/07/19 09:07; Admin Dose 20 MG; Start 02/02/19 at 09:00 Lorazepam (Ativan) 0.5 mg Q8H PRN PO ANXIETY Last administered on 02/07/19 14:46; Admin Dose 0.5 MG; Start 02/02/19 at 12:00 Simethicone (Mylicon) 80 mg Q8 PO Last administered on 02/07/19 14:41; Admin Dose 80 MG; Start 02/05/19 at 14:00 Oxycodone/ Acetaminophen (Percocet (5/ 325)) 1 tab Q6H PRN PO MODERATE PAIN LEVEL 4-6; Start 02/07/19 at 14:30 SONAL ALBERT MD Feb 07, 2019 16:15
[2019-02-07] MEDS: OXYCODONE/ACETAMINOPHEN (5/325) TAB PO PRN (18:44)
[2019-02-07 19:42] VITALS: BP 176/82; PULSE 67; RESP 20
--- NOTE | 2019-02-07 22:41 | PN ---
Date/Time of Note Date/Time of Note DATE: 02/07/19 TIME: 22:40 Assessment/Plan Lines/Catheters IV Catheter Type (from Nrs): Mid Line Valadez in Place (from Nrs): Yes Assessment/Plan Chief Complaint/Hosp Course 1. Pneumoperitoneum with likely perforation of the bladder. Previously family did not consent to proceeding to surgery. She has significantly improved. Extubated; CT cystogram noted without contrast leak -Supportive measures -Diet as tolerated -Pain management -Per urology 2. UTI: 2/2 #2 -abx per sensitivity -frequent bladder emptying/cath care 3. Hypochromic anemia: Status post PRBC transfusion, H&H stable -Monitor and transfuse as needed 4. Multiple wounds: + Wound cultures -local care> added Dakin's -frequent turning and off-loading -low air loss mattress -vitamin c -short term zinc -optimize nutrition _abx per ID 5. Transaminitis: Likely 2/2 #5 -Trend 6. NSTEMI: -Cardiac optimization>per cards 7. Possible left knee effusion -Per medical team; consider Ortho consult 8. Multiple stool episodes: -Stool studies if persistent 9. Anxiety: Currently on Ativan -Psych optimization Thank you Subjective 24 Hr Interval Summary Anxious at times. No acute abdominal pain. + Bowel function. Tolerating diet. No fevers, chills, sob, congested cough, cp, palpitations, keita, dizziness, nausea, vomiting, diarrhea, dysuria Exam/Review of Systems Vital Signs Vitals Vital Signs Date Temp Pulse Resp B/P (MAP) Pulse Ox O2 O2 Flow FiO2 Time Delivery Rate 02/07/19 98.6 67 20 176/82 97 19:42 (113) 02/07/19 Room Air 10:08 Intake and Output 02/06/19 02/06/19 02/07/19 1515:00 23:00 07:00 IntakeIntake Total 100 ml 560 ml 200 ml OutputOutput Total 1000 ml 2300 ml BalanceBalance 100 ml -440 ml -2100 ml Exam Free Text/Dictation Constitutional: NAD, well developed; Psych: anxiety moderate Head: normocephalic, atraumatic Eyes: nl conjunctiva, EOMI, nl lids, nl sclera ENMT: nl external ears & nose, no nl lips & teeth (poor dentition), mucosa pink and moist Neck: supple, non-tender; No jvd Respiratory: normal air movement; No congested cough, No labored breathing Cardiovascular: regular rate and rhythm, nl pulses; No edema Gastrointestinal: soft, non-distended, min tender, no rebound Genitourinary - Female: nl external genitalia Musculoskeletal: nl extremities to inspection, nl gait and stance Extremities: normal pulses Neurological: nl speech, no normal strength (generalized weakness) Skin: No rash or lesions, left hip wound: packed, scant drainage Lymph: nl lymph nodes Results Result Diagram: 02/05/19 0907 02/05/19 0907 ALEK HANDLEY MD Feb 07, 2019 22:41
[2019-02-08] MEDS: PIPER-TAZO 3.375 GM IV (PMX) 100 ML IVPB SCH ×5 (00:09→23:22)
[2019-02-08 01:34] VITALS: BP 135/71; PULSE 72; RESP 20
[2019-02-08] MEDS: ACCU-CHEK XX SCH (02:00)
[2019-02-08] MEDS: OXYCODONE/ACETAMINOPHEN (5/325) TAB PO PRN ×4 (05:30→23:21)
--- NOTE | 2019-02-08 07:28 | CONS ---
Assessment/Plan Assessment/Plan Hospital Course (Demo Recall) 1) pneumoperitoneum and sepsis could be related to pt taking motrin for some pain continue with vanco/zosyn at present to renally dose them await decision by family regarding surgery vs hospice 01/18 - continue with vanco/zosyn CoNS in blood, only one bottle, likely represents contamination e.coli in urine is sensitive to the zosyn pt has EtOH abuse lactic acid has normalized 01/19 - MRSA in nasal area, likely perf is gastric or duodenal to continue with vanco at present and zosyn decrease in platelets noted, may need to change vanco if trend continues 01/20 - no significant change a.m. labs are pending due to blood tx overnight on vanco/zosyn pt has GNR in blood cx, ID is pending but sensitive to zosyn 01/21 - increase dose of zosyn as renal function is further improved awaits CT abd/pelv repeat to see if pt can start to eat alcaligenes was also in blood cx and is a stool bacteria 01/22 - pt passed swallow eval for oral contrast, but CT is still pending continue with vanco/zosyn at present 01/24 - await CT results, pt has tolerated clear liquids though on vanco/zosyn to continue at present pt will need zosyn thru 01/29/19 at least (pt will need eval for possible L hip osteo and if present will need a longer course of the zosyn when pt on full orals will change vanco to doxycycline 01/26 - continue with zosyn, change vanco to doxycycline 01/27 - stable and eating soft foods without difficulty pt to get CT cystogram to see if pt has fistula from bladder 01/31 - pt is eating well without abd pain CT cystogram is pending consider pain management team consult 02/02 - CT cystogram did not show fistula await Dr. [place] input regarding possible cystoscopy recommend pain management consult 2)severe anemia pt is being transfused only smears of stool since admission to get hemoccult 01/18 - Hgb is more stable 01/19 - drop in Hgb again, will need blood tx again 01/20 - pt tx again, a.m. labs are pending 01/21 - Hgb is at 9 now 01/22 - Hgb is stable 01/28 - Hgb remains stable 3) ARF with pyuria and hematuria (e.coli in urine) improving with hydration and blood tx await urine cx results 01/18 - improving urine output and creatinine urine cx has e.coli that is sensitive to zosyn renal u/s suggests hydro on the R and possible renal clot or debris on L 01/19 - further improvement in creatinine on zosyn for e.coli in urine 01/21 - further improvement in renal function 01/22 - creatinine almost normal 01/24 - creatinine has normalized while on vanco 4) elevated troponins likely due to stress from severe anemia 5) hepatitis again likely due to sepsis and severe anemia check hep serologies 01/18 - hep serologies are pending 01/19 - neg hep serologies and HIV LFT's are trending down 6) L hip eschar/decubitus with probable osteo unstageable wound cx was ordered 01/18 - wound cx has not been done, nurse was informed 01/19 - wound cx was obtained and is pending 01/20 - wound cx has GPC growing 01/21 - MRSA in wound cx from hip, continue with vanco at present platelets are improving 01/22 - MRSA and alcaligenes was in wound cx ESR is extremely high, pt will likely need MRI of L hip area to see if osteomyelitis is present when pt is more stable 01/24 - when pt is eating will order MRI of L hip to see if osteo is present (pt h as deep ulcer there and very high ESR) continue vanco/zosyn at present 01/26 - I will order MRI with contrast to L hip area on zosyn/doxy now 01/28 - MRI done and shows probable septic arthritis and possible early osteo I would continue with doxy/zosyn for 4 week regimen (thru 02/12/19) ESR was greatly improved (too improved?), to repeat ESR in a.m. 01/31 - doubt pt has AVN of hip but more likely infection given depth of ulcer the same area ESR is much improved since admission continue with zosyn/doxy thru 02/12/1902/02 - stable on zosyn/doxy, check ESR in a.m. continue with current antibiotics thru 02/12 02/08 - last ESR was up will check again tomorrow with CBC continue with zosyn/doxy at present thru 02/12 7) hypoalbuminemia pt came in with low albumin, she has likely been sick or not eating well for a while 8) CoNS bacteremia 01/18 - only one bottle has CoNS, likely this is contamination continue with vanco at present, await final wound cx results 9) decrease in platelets 01/19 - consider change of vanco if trend continues 01/20 - her MRSA is sensitive to doxy so could change vanco to that 01/21 - platelets are improved 01/22 - platelets are WNL 10) GNR in original blood cx (alcaligenes faecalis) 01/20 - ID is pending but it is sensitive to zosyn 01/21 - alcaligenes is a stool bacteria and likely related to her peritonitis continue with zosyn 01/22 - alcaligines was also in wound cx when pt is eating and more stable will order MRI of L hip to verify no osteo or abscess is present 01/24 - pt will need at least zosyn thru 01/29, longer if osteo of L hip is present 11) LE weakness consider re-consult with surgeon who did the surgery last year 02/02 - pt is not participating in PT due to pain Recommend Dr. Westbrook re-consult pt (surgeon that did her cervical surgery last year) recommend pain management 02/04 - not improving, pt not getting PT 02/08 - pt getting PT and to likely get sent to PT rehab Consultation Date/Type/Reason Admit Date/Time Jan 16, 2019 at 23:33 Initial Consult Date 01/17/19 Type of Consult ID Requesting Provider: SONAL ALBERT MD Date/Time of Note DATE: 02/08/19 TIME: 07:23 24 HR Interval Summary Free Text/Dictation pt has better pain control still gets occasional abd pain no N, V has several small BM's during the day but no cramping eating well Exam/Review of Systems Exam Vitals Vital Signs Date Temp Pulse Resp B/P (MAP) Pulse Ox O2 O2 Flow FiO2 Time Delivery Rate 02/08/19 98.1 72 20 135/71 97 01:34 (92) 02/07/19 Room Air 10:08 Intake and Output 02/07/19 02/07/19 02/08/19 1515:00 23:00 07:00 IntakeIntake Total 100 ml 900 ml 200 ml OutputOutput Total 2 ml 1000 ml 2300 ml BalanceBalance 98 ml -100 ml -2100 ml Constitutional: alert Eyes: nl sclera ENMT: mucosa pink and moist Respiratory: clear to auscultation Cardiovascular: regular rate and rhythm Gastrointestinal: soft, non-tender Extremities: other (L hip ulcer is clean, no surrounding redness) Results Result Diagram: 02/05/1907 02/05/19 09 Results 24hrs Laboratory Tests Test 02/07/19 09:03 02/07/19 12:30 02/07/19 17:15 02/07/19 20:39 Bedside Glucose 101 194 186 115 Medications Medication Current Medications Albuterol (Ventolin Hfa) 4 puff Q2H RESP THERAPY PRN INH SHORTNESS OF BREATH; Start 01/17/19 at 00:00 Ipratropium [place] (Atrovent Hfa) 4 puff Q2H RESP THERAPY PRN INH SHORTNESS OF BREATH; Start 01/17/19 at 00:00 Acetaminophen (Tylenol Liquid) 650 mg Q6H PRN PO PAIN LEVEL 1-3 OR FEVER; S tart 01/17/19 at 00:00 Miscellaneous Information 1 ea NOTE XX ; Start 01/17/19 at 11:00 Glucose (Glutose) 15 gm Q15M PRN PO DECREASED GLUCOSE; Start 01/17/19 at 11:00 Glucose (Glutose) 22.5 gm Q15M PRN PO DECREASED GLUCOSE; Start 01/17/19 at 11:00 Dextrose (D50w Syringe) 25 ml Q15M PRN IV DECREASED GLUCOSE; Start 01/17/19 at 11:00 Dextrose (D50w Syringe) 50 ml Q15M PRN IV DECREASED GLUCOSE; Start 01/17/19 at 11:00 Glucagon (Glucagen) 1 mg Q15M PRN IM DECREASED GLUCOSE; Start 01/17/19 at 11:00 Glucose (Glutose) 15 gm Q15M PRN BUCCAL DECREASED GLUCOSE; Start 01/17/19 at 11:00 Collagenase (Santyl) 1 applic DAILY TOP Last administered on 02/07/19at 09:04; Admin Dose 1 APPLIC; Start 01/17/19 at 17:00 Piperacillin Sod/ Tazobactam Sod 100 ml @ 200 mls/hr Q6 IVPB Last administered on 02/08/19at 05:32; Admin Dose 200 MLS/HR; Start 01/21/19 at 12:00 Carvedilol (Coreg) 3.125 mg BID PO Last administered on 02/07/19 20:44; Admin Dose 3.125 MG; Start 01/21/19 at 09:00 Hydralazine HCl (Apresoline) 10 mg Q4H PRN IV SBP >170 Last administered on 02/05/19 05:12; Admin Dose 10 MG; Start 01/21/19 at 14:30 Doxycycline Hyclate (Vibramycin) 100 mg BID PO Last administered on 02/07/19 20:42; Admin Dose 100 MG; Start 01/26/19 at 09:00 Nystatin (Nystatin Powder) 1 applic BID TOP Last administered on 02/07/19 20:37; Admin Dose 1 APPLIC; Start 01/27/19 at 21:00 Docusate Sodium (Colace) 100 mg BID PO Last administered on 02/05/19 09:09; Admin Dose 100 MG; Start 01/28/19 at 09:00 Sodium Hypochlorite (Dakins Diluted (40)) 1 applic DAILY TP Last administered on 02/07/19 09:12; Admin Dose 1 APPLIC; Start 01/28/19 at 09:40 Citalopram Hydrobromide (Celexa) 10 mg DAILY PO Last administered on 02/07/19 09:04; Admin Dose 10 MG; Start 01/30/19 at 09:00 Insulin Aspart (Novolog Insulin Pen) NOVOLOG *MILD* ALGORITHM WITH MEALS BEDTIME SC Last administered on 02/07/19 17:17; Admin Dose 2 UNIT; Start 01/30/19 at 08:00 Diagnostic Test (Pha) (Accu-Chek) 1 ea 02 XX Last administered on 01/31/19 02:02; Admin Dose 1 EA; Start 01/31/19 at 02:00 Diazepam (Valium) 2 mg TID PO Last administered on 02/07/19 20:41; Admin Dose 2 MG; Start 02/01/19 at 21:00 Baclofen (Lioresal) 5 mg TID PO Last administered on 02/07/19 20:41; Admin Dose 5 MG; Start 02/01/19 at 21:00 Famotidine (Pepcid) 20 mg DAILY PO Last administered on 02/07/19 09:07; Admin Dose 20 MG; Start 02/02/19 at 09:00 Lorazepam (Ativan) 0.5 mg Q8H PRN PO ANXIETY Last administered on 02/07/19at 23:04; Admin Dose 0.5 MG; Start 02/02/19 at 12:00 Simethicone (Mylicon) 80 mg Q8 PO Last administered on 02/08/19at 05:29; Admin Dose 80 MG; Start 02/05/19 at 14:00 Oxycodone/ Acetaminophen (Percocet (5/ 325)) 1 tab Q6H PRN PO MODERATE PAIN LEVEL 4-6 Last administered on 02/08/19 05:30; Admin Dose 1 TAB; Start 02/07/19 at 14:30 PATSY LEVY MD Feb 08, 2019 07:28
[2019-02-08 07:39] VITALS: BP 165/72; PULSE 82; RESP 19
[2019-02-08] MEDS: INSULIN ASPART [NOVOLOG] 3 ML PEN SC SCH ×4 (08:00→20:22)
[2019-02-08] MEDS: DOXYCYCLINE 100 MG TAB PO SCH ×2 (08:22→20:21)
[2019-02-08] MEDS: BACLOFEN 10 MG TAB PO SCH ×3 (08:22→20:22)
[2019-02-08] MEDS: CITALOPRAM 20 MG TAB PO SCH (08:23)
[2019-02-08] MEDS: DOCUSATE SODIUM 100 MG CAP PO SCH ×2 (08:23→20:21)
[2019-02-08] MEDS: FAMOTIDINE 20 MG TAB PO SCH (08:23)
[2019-02-08] MEDS: COLLAGENASE 5 GM (UD JAR) TOP SCH (08:24)
[2019-02-08] MEDS: DIAZEPAM 2 MG TAB PO SCH ×3 (08:26→20:22)
[2019-02-08] MEDS: DAKINS 0.0125%(1/40) 473 ML SOLUTION TP SCH (08:27)
[2019-02-08] MEDS: NYSTATIN 30 GM POWDER BTL TOP SCH ×2 (08:27→20:24)
[2019-02-08] MEDS: BALSAM PERU/CASTOR OIL 60 GM TUBE TOP SCH ×2 (08:28→20:25)
[2019-02-08] MEDS: LORAZEPAM 0.5 MG TAB PO PRN ×2 (10:26→19:29)
--- NOTE | 2019-02-08 11:43 | CONS ---
Assessment/Plan Assessment/Plan Hospital Course (Demo Recall) #Anemia -patient's initial Hg of 2.6 was likely secondary to GIB and perforated viscous. Stool ob at that time was negative. -anemia panel is consistent with iron deficiency -s/p Ferrlecit 125 mg IV x 5 days completed 01/30. Hg no w> 10 #Sepsis -2/2 UTI and wound infection -continue antibiotics. pt on zosyn #Perforated viscous -continue conservative management per surgery -pt is now stable #JACKIE -renal following -Creatine did bump to 1.35 Consultation Date/Type/Reason Admit Date/Time Jan 16, 2019 at 23:33 Initial Consult Date 01/25/19 Type of Consult hematology Reason for Consultation anemia Requesting Provider: SONAL ALBERT MD Date/Time of Note DATE: 02/08/19 TIME: 11:36 24 HR Interval Summary Free Text/Dictation pt continues on antibiotics Exam/Review of Systems Exam Vitals Vital Signs Date Temp Pulse Resp B/P (MAP) Pulse Ox O2 O2 Flow FiO2 Time Delivery Rate 02/08/19 98.2 82 19 165/72 98 07:39 (103) 02/07/19 Room Air 10:08 Intake and Output 02/07/19 02/07/19 02/08/19 1515:00 23:00 07:00 IntakeIntake Total 100 ml 900 ml 200 ml OutputOutput Total 2 ml 1000 ml 2300 ml BalanceBalance 98 ml -100 ml -2100 ml Constitutional: alert, oriented, distress Psych: anxiety, depression Head: normocephalic Eyes: nl conjunctiva ENMT: nl external ears & nose Neck: supple Respiratory: clear to auscultation Cardiovascular: regular rate and rhythm Gastrointestinal: soft Musculoskeletal: nl extremities to inspection Results Result Diagram: 02/05/19 0907 02/05/19 0907 Results 24hrs Laboratory Tests Test 02/07/19 12:30 02/07/19 17:15 02/07/19 20:39 02/08/19 08:21 Bedside Glucose 194 186 115 72 Test 02/08/19 09:44 Lab Scanned Report REFERENCE LAB Medications Medication Current Medications Albuterol (Ventolin Hfa) 4 puff Q2H RESP THERAPY PRN INH SHORTNESS OF BREATH; Start 01/17/19 at 00:00 Ipratropium [place] (Atrovent Hfa) 4 puff Q2H RESP THERAPY PRN INH SHORTNESS OF BREATH; Start 01/17/19 at 00:00 Acetaminophen (Tylenol Liquid) 650 mg Q6H PRN PO PAIN LEVEL 1-3 OR FEVER; Start 01/17/19 at 00:00 Miscellaneous Information 1 ea NOTE XX ; Start 01/17/19 at 11:00 Glucose (Glutose) 15 gm Q15M PRN PO DECREASED GLUCOSE; Start 01/17/19 at 11:00 Glucose (Glutose) 22.5 gm Q15M PRN PO DECREASED GLUCOSE; Start 01/17/19 at 11:00 Dextrose (D50w Syringe) 25 ml Q15M PRN IV DECREASED GLUCOSE; Start 01/17/19 at 11:00 Dextrose (D50w Syringe) 50 ml Q15M PRN IV DECREASED GLUCOSE; Start 01/17/19 at 11:00 Glucagon (Glucagen) 1 mg Q15M PRN IM DECREASED GLUCOSE; Start 01/17/19 at 11:00 Glucose (Glutose) 15 gm Q15M PRN BUCCAL DECREASED GLUCOSE; Start 01/17/19 at 11:00 Collagenase (Santyl) 1 applic DAILY TOP Last administered on 02/08/19at 08:24; Admin Dose 1 APPLIC; Start 01/17/19 at 17:00 Piperacillin Sod/ Tazobactam Sod 100 ml @ 200 mls/hr Q6 IVPB Last administered on 02/08/19at 05:32; Admin Dose 200 MLS/HR; Start 01/21/19 at 12:00 Carvedilol (Coreg) 3.125 mg BID PO Last administered on 02/08/19at 08:23; Admin Dose 3.125 MG; Start 01/21/19 at 09:00 Hydralazine HCl (Apresoline) 10 mg Q4H PRN IV SBP >170 Last administered on at 05:12; Admin Dose 10 MG; Start 01/21/19 at 14:30 Doxycycline Hyclate (Vibramycin) 100 mg BID PO Last administered on 02/08/19at 08:22; Admin Dose 100 MG; Start 01/26/19 at 09:00 Nystatin (Nystatin Powder) 1 applic BID TOP Last administered on 02/08/19at 08:27; Admin Dose 1 APPLIC; Start 01/27/19 at 21:00 Docusate Sodium (Colace) 100 mg BID PO Last administered on 02/08/19 08:23; Admin Dose 100 MG; Start 01/28/19 at 09:00 Sodium Hypochlorite (Dakins Diluted ()) 1 applic DAILY TP Last administered on 02/08/19 08:27; Admin Dose 1 APPLIC; Start 01/28/19 at 09:40 Citalopram Hydrobromide (Celexa) 10 mg DAILY PO Last administered on 02/08/19 08:23; Admin Dose 10 MG; Start 01/30/19 at 09:00 Insulin Aspart (Novolog Insulin Pen) NOVOLOG *MILD* ALGORITHM WITH MEALS BEDTIME SC Last administered on 02/07/19 17:17; Admin Dose 2 UNIT; Start 01/30/19 at 08:00 Diagnostic Test (Pha) (Accu-Chek) 1 ea 02 XX Last administered on 01/31/19 02:02; Admin Dose 1 EA; Start 01/31/19 at 02:00 Diazepam (Valium) 2 mg TID PO Last administered on 02/08/19 08:26; Admin Dose 2 MG; Start 02/01/19 at 21:00 Baclofen (Lioresal) 5 mg TID PO Last administered on 02/08/19 08:22; Admin Dose 5 MG; Start 02/01/19 at 21:00 Famotidine (Pepcid) 20 mg DAILY PO Last administered on 02/08/19 08:23; Admin Dose 20 MG; Start 02/02/19 at 09:00 Lorazepam (Ativan) 0.5 mg Q8H PRN PO ANXIETY Last administered on 02/08/19 10:26; Admin Dose 0.5 MG; Start 02/02/19 at 12:00 Simethicone (Mylicon) 80 mg Q8 PO Last administered on 02/08/19 05:29; Admin Dose 80 MG; Start 02/05/19 at 14:00 Oxycodone/ Acetaminophen (Percocet (5/ 325)) 1 tab Q6H PRN PO MODERATE PAIN LEVEL 4-6 Last administered on 02/08/19 05:30; Admin Dose 1 TAB; Start 02/07/19 at 14:30 RAJI DIXON M.D. Feb 08, 2019 11:43
--- NOTE | 2019-02-08 12:43 | PN ---
Date/Time of Note Date/Time of Note DATE: 02/08/19 TIME: 12:41 Assessment/Plan Lines/Catheters IV Catheter Type (from Nrsg): Mid Line Valadez in Place (from Nrs): Yes Assessment/Plan Chief Complaint/Hosp Course 1. Pneumoperitoneum with likely perforation of the bladder. Previously family did not consent to proceeding to surgery. She has significantly improved. Extubated; CT cystogram noted without contrast leak -Supportive measures -Diet as tolerated -Pain management -Per urology -DC planning okay from surgical standpoint 2. UTI: 2/2 #2 -abx per sensitivity -frequent bladder emptying/cath care 3. Hypochromic anemia: Status post PRBC transfusion, H&H stable -Monitor and transfuse as needed 4. Multiple wounds: + Wound cultures -local care> added Dakin's -frequent turning and off-loading -low air loss mattress -vitamin c -short term zinc -optimize nutrition _abx per ID 5. Transaminitis: Likely 2/2 #5 -Trend 6. NSTEMI: -Cardiac optimization>per cards 7. Possible left knee effusion -Per medical team; consider Ortho consult 8. Multiple stool episodes: -Stool studies if persistent 9. Anxiety: Currently on Ativan -Psych optimization Thank you. Patient seen and examined in collaboration with Dr. Osei Sanford. Subjective 24 Hr Interval Summary Feels well. Physical therapy today. No fevers, chills, sob, congested cough, cp, palpitations, keita, dizziness, nausea, vomiting, diarrhea, dysuria. + Bowel function. Tolerating diet. No abdominal discomfort. Exam/Review of Systems Vital Signs Vitals Vital Signs Date Temp Pulse Resp B/P (MAP) Pulse Ox O2 O2 Flow FiO2 Time Delivery Rate 02/08/19 98.2 82 19 165/72 98 07:39 (103) 02/07/19 Room Air 10:08 Intake and Output 02/07/19 02/07/19 02/08/19 1515:00 23:00 07:00 IntakeIntake Total 100 ml 900 ml 200 ml OutputOutput Total 2 ml 1000 ml 2300 ml BalanceBalance 98 ml -100 ml -2100 ml Exam Free Text/Dictation Constitutional: NAD, well developed; Psych: anxiety moderate Head: normocephalic, atraumatic Eyes: nl conjunctiva, EOMI, nl lids, nl sclera ENMT: nl external ears & nose, no nl lips & teeth (poor dentition), mucosa pink and moist Neck: supple, non-tender; No jvd Respiratory: normal air movement; No congested cough, No labored breathing Cardiovascular: regular rate and rhythm, nl pulses; No edema Gastrointestinal: soft, non-distended, min tender, no rebound Genitourinary - Female: nl external genitalia Musculoskeletal: nl extremities to inspection, nl gait and stance Extremities: normal pulses Neurological: nl speech, no normal strength (generalized weakness) Skin: No rash or lesions, left hip wound: packed, scant drainage Lymph: nl lymph nodes Results Result Diagram: 02/05/19 0907 02/05/19 0907 MASSIMO WATKINS NP Feb 08, 2019 12:43
[2019-02-08 14:35] VITALS: BP 143/81; RESP 18
--- NOTE | 2019-02-08 15:28 | PN ---
Date/Time of Note Date/Time of Note DATE: 02/08/19 TIME: 15:26 Assessment/Plan VTE Prophylaxis Risk score (from Nsg)>0 risk: 2 SCD applied (from Nsg): Yes Pharmacological prophylaxis: heparin Lines/Catheters IV Catheter Type (from Nrsg): Mid Line Urinary Cath still in place: Yes Reason Cath still needed: urinary retention Assessment/Plan Hospital Course EXAM: Well appearing, in NAD, Aox3 RRR CTAB Soft nt nd Contracted LEs L hip pressure ulcer 59 yo female with chronic debility and leg weakness who presented with sepsis, severe anemia, and perforated viscus Perforated viscus: - conservative management per surgery - resolved Hip OM: - Abx course per ID Concern for colovesicular fistula: -CT pyelogram without fistula. Management per Dr finley - Continue may Macrocytic anemia secondary to elevated reticulocyte count - Status post 4 units of packed red blood cells - stable Iron deficiency: - IV iron Acute kidney injury secondary to severe septic shock - Renal function improved to baseline B/l LE weakness: - PT/OT Anxiety: - Valium TID Prophylaxis: SCDs, Protonix Discharge planning; To SNF when workup/management completed Result Diagram: 02/05/19 0907 02/05/19 0907 Results 24hrs Laboratory Tests Test 02/07/19 17:15 02/07/19 20:39 02/08/19 08:21 02/08/19 09:44 Bedside Glucose 186 115 72 Lab Scanned Report REFERENCE LAB Test 02/08/19 13:17 02/08/19 13:43 Bedside Glucose 132 183 Subjective 24 Hr Interval Summary Free Text/Dictation Patient is in good spirits. Wokring with PT. Wants to get her legs stronger Exam/Review of Systems Exam Vitals Vital Signs Date Temp Pulse Resp B/P (MAP) Pulse Ox O2 O2 Flow FiO2 Time Delivery Rate 02/08/19 18 143/81 96 14:35 (101) 02/08/19 98.2 82 07:39 02/07/19 Room Air 10:08 Intake and Output 02/07/19 02/07/19 02/08/19 1515:00 23:00 07:00 IntakeIntake Total 100 ml 900 ml 200 ml OutputOutput Total 2 ml 1000 ml 2300 ml BalanceBalance 98 ml -100 ml -2100 ml Results Results 24hrs Laboratory Tests Test 02/07/19 17:15 02/07/19 20:39 02/08/19 08:21 02/08/19 09:44 Bedside Glucose 186 115 72 Lab Scanned Report REFERENCE LAB Test 02/08/19 13:17 02/08/19 13:43 Bedside Glucose 132 183 Medications Medication Current Medications Albuterol (Ventolin Hfa) 4 puff Q2H RESP THERAPY PRN INH SHORTNESS OF BREATH; Start 01/17/19 at 00:00 Ipratropium [place] (Atrovent Hfa) 4 puff Q2H RESP THERAPY PRN INH SHORTNESS OF BREATH; Start 01/17/19 at 00:00 Acetaminophen (Tylenol Liquid) 650 mg Q6H PRN PO PAIN LEVEL 1-3 OR FEVER; Start 01/17/19 at 00:00 Miscellaneous Information 1 ea NOTE XX ; Start 01/17/19 at 11:00 Glucose (Glutose) 15 gm Q15M PRN PO DECREASED GLUCOSE; Start 01/17/19 at 11:00 Glucose (Glutose) 22.5 gm Q15M PRN PO DECREASED GLUCOSE; Start 01/17/19 at 11:00 Dextrose (D50w Syringe) 25 ml Q15M PRN IV DECREASED GLUCOSE; Start 01/17/19 at 11:00 Dextrose (D50w Syringe) 50 ml Q15M PRN IV DECREASED GLUCOSE; Start 01/17/19 at 11:00 Glucagon (Glucagen) 1 mg Q15M PRN IM DECREASED GLUCOSE; Start 01/17/19 at 11:00 Glucose (Glutose) 15 gm Q15M PRN BUCCAL DECREASED GLUCOSE; Start 01/17/19 at 11:00 Collagenase (Santyl) 1 applic DAILY TOP Last administered on 02/08/19at 08:24; Admin Dose 1 APPLIC; Start 01/17/19 at 17:00 Piperacillin Sod/ Tazobactam Sod 100 ml @ 200 mls/hr Q6 IVPB Last administered on 02/08/19at 12:44; Admin Dose 200 MLS/HR; Start 01/21/19 at 12:00 Carvedilol (Coreg) 3.125 mg BID PO Last administered on 02/08/19at 08:23; Admin Dose 3.125 MG; Start 01/21/19 at 09:00 Hydralazine HCl (Apresoline) 10 mg Q4H PRN IV SBP >170 Last administered on 02/05/19 05:12; Admin Dose 10 MG; Start 01/21/19 at 14:30 Doxycycline Hyclate (Vibramycin) 100 mg BID PO Last administered on 02/08/19 08:22; Admin Dose 100 MG; Start 01/26/19 at 09:00 Nystatin (Nystatin Powder) 1 applic BID TOP Last administered on 02/08/19 08:27; Admin Dose 1 APPLIC; Start 01/27/19 at 21:00 Docusate Sodium (Colace) 100 mg BID PO Last administered on 02/08/19 08:23; Admin Dose 100 MG; Start 01/28/19 at 09:00 Sodium Hypochlorite (Dakins Diluted ()) 1 applic DAILY TP Last administered on 02/08/19 08:27; Admin Dose 1 APPLIC; Start 01/28/19 at 09:40 Citalopram Hydrobromide (Celexa) 10 mg DAILY PO Last administered on 02/08/19 08:23; Admin Dose 10 MG; Start 01/30/19 at 09:00 Insulin Aspart (Novolog Insulin Pen) NOVOLOG *MILD* ALGORITHM WITH MEALS BEDTIME SC Last administered on 02/07/19 17:17; Admin Dose 2 UNIT; Start 01/30/19 at 08:00 Diagnostic Test (Pha) (Accu-Chek) 1 ea 02 XX Last administered on 01/31/19 02:02; Admin Dose 1 EA; Start 01/31/19 at 02:00 Diazepam (Valium) 2 mg TID PO Last administered on 02/08/19 12:44; Admin Dose 2 MG; Start 02/01/19 at 21:00 Baclofen (Lioresal) 5 mg TID PO Last administered on 02/08/19 12:44; Admin Dose 5 MG; Start 02/01/19 at 21:00 Famotidine (Pepcid) 20 mg DAILY PO Last administered on 02/08/19 08:23; Admin Dose 20 MG; Start 02/02/19 at 09:00 Lorazepam (Ativan) 0.5 mg Q8H PRN PO ANXIETY Last administered on 02/08/19 10:26; Admin Dose 0.5 MG; Start 02/02/19 at 12:00 Simethicone (Mylicon) 80 mg Q8 PO Last administered on 02/08/19at 14:29; Admin Dose 80 MG; Start 02/05/19 at 14:00 Oxycodone/ Acetaminophen (Percocet (5/ 325)) 1 tab Q6H PRN PO MODERATE PAIN LEVEL 4-6 Last administered on 02/08/19at 11:37; Admin Dose 1 TAB; Start 02/07/19 at 14:30 SONAL ALBERT MD Feb 08, 2019 15:28
[2019-02-08 19:37] VITALS: BP 150/81; PULSE 72; RESP 20
[2019-02-09 01:44] VITALS: BP 125/74; PULSE 75; RESP 20
[2019-02-09] MEDS: PIPER-TAZO 3.375 GM IV (PMX) 100 ML IVPB SCH ×3 (05:38→18:11)
[2019-02-09] MEDS: LORAZEPAM 0.5 MG TAB PO PRN ×3 (05:38→21:45)
[2019-02-09 08:00] VITALS: BP 151/88; RESP 18
[2019-02-09] MEDS: INSULIN ASPART [NOVOLOG] 3 ML PEN SC SCH ×4 (08:00→20:28)
[2019-02-09] MEDS: BACLOFEN 10 MG TAB PO SCH ×3 (08:09→20:28)
[2019-02-09] MEDS: FAMOTIDINE 20 MG TAB PO SCH (08:09)
[2019-02-09] MEDS: DOXYCYCLINE 100 MG TAB PO SCH ×2 (08:09→20:28)
[2019-02-09] MEDS: DIAZEPAM 2 MG TAB PO SCH ×3 (08:10→20:28)
[2019-02-09] MEDS: CITALOPRAM 20 MG TAB PO SCH (08:10)
[2019-02-09] MEDS: DOCUSATE SODIUM 100 MG CAP PO SCH (08:10)
[2019-02-09] MEDS: COLLAGENASE 5 GM (UD JAR) TOP SCH (08:11)
[2019-02-09] MEDS: OXYCODONE/ACETAMINOPHEN (5/325) TAB PO PRN ×3 (08:11→20:29)
[2019-02-09] MEDS: BALSAM PERU/CASTOR OIL 60 GM TUBE TOP SCH ×2 (08:11→20:31)
[2019-02-09] MEDS: NYSTATIN 30 GM POWDER BTL TOP SCH ×2 (08:11→20:31)
[2019-02-09] MEDS: DAKINS 0.0125%(1/40) 473 ML SOLUTION TP SCH (08:12)
--- NOTE | 2019-02-09 10:44 | CONS ---
Assessment/Plan Assessment/Plan Hospital Course (Demo Recall) #Anemia -patient's initial Hg of 2.6 was likely secondary to GIB and perforated viscous. Stool ob at that time was negative. -anemia panel is consistent with iron deficiency -s/p Ferrlecit 125 mg IV x 5 days completed 01/30. Hg no w> 10 #Sepsis -2/2 UTI and wound infection -continue antibiotics. pt on zosyn #Perforated viscous -continue conservative management per surgery -pt is now stable #JACKIE -renal following -Creatine did bump to 1.35 Consultation Date/Type/Reason Admit Date/Time Jan 16, 2019 at 23:33 Initial Consult Date 01/25/19 Type of Consult hematology Reason for Consultation anemia Requesting Provider: SONAL ALBERT MD Date/Time of Note DATE: 02/09/19 TIME: 10:42 24 HR Interval Summary Free Text/Dictation no acute overnight events Exam/Review of Systems Exam Vitals Vital Signs Date Temp Pulse Resp B/P (MAP) Pulse Ox O2 O2 Flow FiO2 Time Delivery Rate 02/09/19 98.6 18 151/88 98 08:00 (109) 02/09/19 75 01:44 02/07/19 Room Air 10:08 Intake and Output 02/08/19 02/08/19 02/09/19 1515:00 23:00 07:00 IntakeIntake Total 640 ml 860 ml 200 ml OutputOutput Total 1400 ml 1400 ml BalanceBalance 640 ml -540 ml -1200 ml Constitutional: alert, oriented Psych: no complaints Head: normocephalic Eyes: nl conjunctiva ENMT: nl external ears & nose Neck: supple Respiratory: clear to auscultation Cardiovascular: regular rate and rhythm Gastrointestinal: soft Musculoskeletal: nl extremities to inspection Results Result Diagram: 02/05/19 0907 02/05/19 0907 Results 24hrs Laboratory Tests Test 02/08/19 12:47 02/08/19 13:17 02/08/19 13:43 02/08/19 17:17 Bedside Glucose 67 L 132 183 122 Test 02/08/19 20:20 02/09/19 08:18 02/09/19 10:11 Bedside Glucose 88 94 White Blood Count Pending Red Blood Count Pending Hemoglobin Pending Hematocrit Pending Mean Corpuscular Pending Volume Mean Corpuscular Pending Hemoglobin Mean Corpuscular Pending Hemoglobin Concent Red Cell Pending Distribution Width Platelet Count Pending Mean Platelet Volume Pending Medications Medication Current Medications Albuterol (Ventolin Hfa) 4 puff Q2H RESP THERAPY PRN INH SHORTNESS OF BREATH; Start 01/17/19 at 00:00 Ipratropium [place] (Atrovent Hfa) 4 puff Q2H RESP THERAPY PRN INH SHORTNESS OF BREATH; Start 01/17/19 at 00:00 Acetaminophen (Tylenol Liquid) 650 mg Q6H PRN PO PAIN LEVEL 1-3 OR FEVER; Start 01/17/19 at 00:00 Miscellaneous Information 1 ea NOTE XX ; Start 01/17/19 at 11:00 Glucose (Glutose) 15 gm Q15M PRN PO DECREASED GLUCOSE; Start 01/17/19 at 11:00 Glucose (Glutose) 22.5 gm Q15M PRN PO DECREASED GLUCOSE; Start 01/17/19 at 11:00 Dextrose (D50w Syringe) 25 ml Q15M PRN IV DECREASED GLUCOSE; Start 01/17/19 at 11:00 Dextrose (D50w Syringe) 50 ml Q15M PRN IV DECREASED GLUCOSE; Start 01/17/19 at 11:00 Glucagon (Glucagen) 1 mg Q15M PRN IM DECREASED GLUCOSE; Start 01/17/19 at 11:00 Glucose (Glutose) 15 gm Q15M PRN BUCCAL DECREASED GLUCOSE; Start 01/17/19 at 11:00 Collagenase (Santyl) 1 applic DAILY TOP Last administered on 02/09/19at 08:11; Admin Dose 1 APPLIC; Start 01/17/19 at 17:00 Piperacillin Sod/ Tazobactam Sod 100 ml @ 200 mls/hr Q6 IVPB Last administered on 02/09/19at 05:38; Admin Dose 200 MLS/HR; Start 01/21/19 at 12:00 Carvedilol (Coreg) 3.125 mg BID PO Last administered on 02/09/19at 08:10; Admin Dose 3.125 MG; Start 01/21/19 at 09:00 Hydralazine HCl (Apresoline) 10 mg Q4H PRN IV SBP >170 Last administered on 02/05/19at 05:12; Admin Dose 10 MG; Start 01/21/19 at 14:30 Doxycycline Hyclate (Vibramycin) 100 mg BID PO Last administered on 02/09/19 08:09; Admin Dose 100 MG; Start 01/26/19 at 09:00 Nystatin (Nystatin Powder) 1 applic BID TOP Last administered on 02/09/19 08:11; Admin Dose 1 APPLIC; Start 01/27/19 at 21:00 Docusate Sodium (Colace) 100 mg BID PO Last administered on 02/09/19 08:10; Admin Dose 100 MG; Start 01/28/19 at 09:00 Sodium Hypochlorite (Dakins Diluted ()) 1 applic DAILY TP Last administered on 02/09/19 08:12; Admin Dose 1 APPLIC; Start 01/28/19 at 09:40 Citalopram Hydrobromide (Celexa) 10 mg DAILY PO Last administered on 02/09/19 08:10; Admin Dose 10 MG; Start 01/30/19 at 09:00 Insulin Aspart (Novolog Insulin Pen) NOVOLOG *MILD* ALGORITHM WITH MEALS BEDTIME SC Last administered on 02/07/19 17:17; Admin Dose 2 UNIT; Start 01/30/19 at 08:00 Diazepam (Valium) 2 mg TID PO Last administered on 02/09/19 08:10; Admin Dose 2 MG; Start 02/01/19 at 21:00 Baclofen (Lioresal) 5 mg TID PO Last administered on 02/09/19 08:09; Admin Dose 5 MG; Start 02/01/19 at 21:00 Famotidine (Pepcid) 20 mg DAILY PO Last administered on 02/09/19 08:09; Admin Dose 20 MG; Start 02/02/19 at 09:00 Lorazepam (Ativan) 0.5 mg Q8H PRN PO ANXIETY Last administered on 02/09/19 05:38; Admin Dose 0.5 MG; Start 02/02/19 at 12:00 Simethicone (Mylicon) 80 mg Q8 PO Last administered on 02/09/19 05:37; Admin Dose 80 MG; Start 02/05/19 at 14:00 Oxycodone/ Acetaminophen (Percocet (5/ 325)) 1 tab Q6H PRN PO MODERATE PAIN LEVEL 4-6 Last administered on 02/09/19 08:11; Admin Dose 1 TAB; Start 02/07/19 at 14:30 RAJI DIXON M.D. Feb 09, 2019 10:43
--- NOTE | 2019-02-09 12:47 | PN ---
Date/Time of Note Date/Time of Note DATE: 02/09/19 TIME: 12:46 Assessment/Plan Lines/Catheters IV Catheter Type (from Nrs): Mid Line Valadez in Place (from Nrs): Yes Assessment/Plan Chief Complaint/Hosp Course 1. Pneumoperitoneum with likely perforation of the bladder. Previously family did not consent to proceeding to surgery. She has significantly improved. Extubated; CT cystogram noted without contrast leak -Supportive measures -Diet as tolerated -Pain management -Per urology -DC okay from surgical standpoint. Will need urology follow-up 2. UTI: 2/2 #2 -abx per sensitivity -frequent bladder emptying/cath care 3. Hypochromic anemia: Status post PRBC transfusion, H&H stable -Monitor and transfuse as needed 4. Multiple wounds: + Wound cultures -local care> added Dakin's -frequent turning and off-loading -low air loss mattress -vitamin c -short term zinc -optimize nutrition _abx per ID 5. Transaminitis: Likely 2/2 #5 -Trend 6. NSTEMI: -Cardiac optimization>per cards 7. Possible left knee effusion -Per medical team; consider Ortho consult 8. Multiple stool episodes: -Stool studies if persistent 9. Anxiety: Currently on Ativan -Psych optimization Thank you. Patient seen and examined in collaboration with Dr. Osei Sanford. Subjective 24 Hr Interval Summary Feels well. No abdominal pain. No fevers, chills, sob, congested cough, cp, palpitations, keita, dizziness, nausea, vomiting, diarrhea, dysuria. Exam/Review of Systems Vital Signs Vitals Vital Signs Date Temp Pulse Resp B/P (MAP) Pulse Ox O2 O2 Flow FiO2 Time Delivery Rate 02/09/19 98.6 18 151/88 98 08:00 (109) 02/09/19 75 01:44 02/07/19 Room Air 10:08 Intake and Output 02/08/19 02/08/19 02/09/19 1515:00 23:00 07:00 IntakeIntake Total 640 ml 860 ml 200 ml OutputOutput Total 1400 ml 1400 ml BalanceBalance 640 ml -540 ml -1200 ml Exam Free Text/Dictation Constitutional: NAD, well developed; Psych: anxiety moderate Head: normocephalic, atraumatic Eyes: nl conjunctiva, EOMI, nl lids, nl sclera ENMT: nl external ears & nose, no nl lips & teeth (poor dentition), mucosa pink and moist Neck: supple, non-tender; No jvd Respiratory: normal air movement; No congested cough, No labored breathing Cardiovascular: regular rate and rhythm, nl pulses; No edema Gastrointestinal: soft, non-distended, min tender, no rebound Genitourinary - Female: nl external genitalia Musculoskeletal: nl extremities to inspection, nl gait and stance Extremities: normal pulses Neurological: nl speech, no normal strength (generalized weakness) Skin: No rash or lesions, left hip wound: packed, scant drainage Lymph: nl lymph nodes Results Result Diagram: 02/09/19 1011 02/09/19 1011 MASSIMO WATKINS NP Feb 09, 2019 12:47
[2019-02-09 14:00] VITALS: BP 158/82; PULSE 68; RESP 18
--- NOTE | 2019-02-09 15:50 | PN ---
Date/Time of Note Date/Time of Note DATE: 02/09/19 TIME: 15:49 Assessment/Plan VTE Prophylaxis Risk score (from Ns)>0 risk: 3 SCD applied (from Ns): Yes Pharmacological prophylaxis: heparin Lines/Catheters IV Catheter Type (from Nrsg): Mid Line Urinary Cath still in place: Yes Reason Cath still needed: urinary retention Assessment/Plan Hospital Course EXAM: Well appearing, in NAD, Aox3 RRR CTAB Soft nt nd Contracted LEs L hip pressure ulcer 59 yo female with chronic debility and leg weakness who presented with sepsis, severe anemia, and perforated viscus Perforated viscus: - conservative management per surgery - resolved Hip OM: - Abx course per ID Concern for colovesicular fistula: -CT pyelogram without fistula. Management per Dr finley - Continue may Macrocytic anemia secondary to elevated reticulocyte count - Status post 4 units of packed red blood cells - stable Iron deficiency: - IV iron Acute kidney injury secondary to severe septic shock - Renal function improved to baseline B/l LE weakness: - PT/OT Anxiety: - Valium TID Prophylaxis: SCDs, Protonix Discharge planning; To SNF when workup/management completed Result Diagram: 02/09/19 1011 02/09/19 1011 Results 24hrs Laboratory Tests Test 02/08/19 17:17 02/08/19 20:20 02/09/19 08:18 02/09/19 10:11 Bedside Glucose 122 88 94 White Blood Count 4.6 L Red Blood Count 3.29 L Hemoglobin 9.6 L Hematocrit 29.9 L Mean Corpuscular 90.9 Volume Mean Corpuscular 29.2 Hemoglobin Mean Corpuscular 32.1 Hemoglobin Concent Red Cell 16.1 H Distribution Width Platelet Count 174 # Mean Platelet Volume 10.7 H Immature 0.200 Granulocytes % Neutrophils % 51.0 Lymphocytes % 35.6 Monocytes % 8.0 Eosinophils % 5.0 Basophils % 0.2 Nucleated Red Blood 0.0 Cells % Immature 0.010 Granulocytes # Neutrophils # 2.4 Lymphocytes # 1.7 Monocytes # 0.4 Eosinophils # 0.2 Basophils # 0.0 Nucleated Red Blood 0.0 Cells # Erythrocyte 42 H Sedimentation Rate Sodium Level 132 L Potassium Level 3.9 Chloride Level 104 Carbon Dioxide Level 20 L Anion Gap 8 Blood Urea Nitrogen 32 H Creatinine 1.16 H Est Glomerular 48 L Filtrat Rate mL/min Glucose Level 144 Calcium Level 9.2 Test 02/09/19 12:10 02/09/19 12:29 Bedside Glucose 131 105 Subjective 24 Hr Interval Summary Free Text/Dictation Complains of excessive loose stools Exam/Review of Systems Exam Vitals Vital Signs Date Temp Pulse Resp B/P (MAP) Pulse Ox O2 O2 Flow FiO2 Time Delivery Rate 02/09/19 97.8 68 18 158/82 100 14:00 (107) 02/07/19 Room Air 10:08 Intake and Output 02/08/19 02/08/19 02/09/19 1515:00 23:00 07:00 IntakeIntake Total 640 ml 860 ml 200 ml OutputOutput Total 1400 ml 1400 ml BalanceBalance 640 ml -540 ml -1200 ml Results Results 24hrs Laboratory Tests Test 02/08/19 17:17 02/08/19 20:20 02/09/19 08:18 02/09/19 10:11 Bedside Glucose 122 88 94 White Blood Count 4.6 L Red Blood Count 3.29 L Hemoglobin 9.6 L Hematocrit 29.9 L Mean Corpuscular 90.9 Volume Mean Corpuscular 29.2 Hemoglobin Mean Corpuscular 32.1 Hemoglobin Concent Red Cell 16.1 H Distribution Width Platelet Count 174 # Mean Platelet Volume 10.7 H Immature 0.200 Granulocytes % Neutrophils % 51.0 Lymphocytes % 35.6 Monocytes % 8.0 Eosinophils % 5.0 Basophils % 0.2 Nucleated Red Blood 0.0 Cells % Immature 0.010 Granulocytes # Neutrophils # 2.4 Lymphocytes # 1.7 Monocytes # 0.4 Eosinophils # 0.2 Basophils # 0.0 Nucleated Red Blood 0.0 Cells # Erythrocyte 42 H Sedimentation Rate Sodium Level 132 L Potassium Level 3.9 Chloride Level 104 Carbon Dioxide Level 20 L Anion Gap 8 Blood Urea Nitrogen 32 H Creatinine 1.16 H Est Glomerular 48 L Filtrat Rate mL/min Glucose Level 144 Calcium Level 9.2 Test 02/09/19 12:10 02/09/19 12:29 Bedside Glucose 131 105 Medications Medication Current Medications Albuterol (Ventolin Hfa) 4 puff Q2H RESP THERAPY PRN INH SHORTNESS OF BREATH; Start 01/17/19 at 00:00 Ipratropium [place] (Atrovent Hfa) 4 puff Q2H RESP THERAPY PRN INH SHORTNESS OF BREATH; Start 01/17/19 at 00:00 Acetaminophen (Tylenol Liquid) 650 mg Q6H PRN PO PAIN LEVEL 1-3 OR FEVER; Start 01/17/19 at 00:00 Miscellaneous Information 1 ea NOTE XX ; Start 01/17/19 at 11:00 Glucose (Glutose) 15 gm Q15M PRN PO DECREASED GLUCOSE; Start 01/17/19 at 11:00 Glucose (Glutose) 22.5 gm Q15M PRN PO DECREASED GLUCOSE; Start 01/17/19 at 11:00 Dextrose (D50w Syringe) 25 ml Q15M PRN IV DECREASED GLUCOSE; Start 01/17/19 at 11:00 Dextrose (D50w Syringe) 50 ml Q15M PRN IV DECREASED GLUCOSE; Start 01/17/19 at 11:00 Glucagon (Glucagen) 1 mg Q15M PRN IM DECREASED GLUCOSE; Start 01/17/19 at 11:00 Glucose (Glutose) 15 gm Q15M PRN BUCCAL DECREASED GLUCOSE; Start 01/17/19 at 11:00 Collagenase (Santyl) 1 applic DAILY TOP Last administered on 02/09/19at 08:11; Admin Dose 1 APPLIC; Start 01/17/19 at 17:00 Piperacillin Sod/ Tazobactam Sod 100 ml @ 200 mls/hr Q6 IVPB Last administered on 02/09/19at 12:05; Admin Dose 200 MLS/HR; Start 01/21/19 at 12:00 Carvedilol (Coreg) 3.125 mg BID PO Last administered on 02/09/19at 08:10; Admin Dose 3.125 MG; Start 01/21/19 at 09:00 Hydralazine HCl (Apresoline) 10 mg Q4H PRN IV SBP >170 Last administered on 02/05/19at 05:12; Admin Dose 10 MG; Start 01/21/19 at 14:30 Doxycycline Hyclate (Vibramycin) 100 mg BID PO Last administered on 02/09/19at 08:09; Admin Dose 100 MG; Start 01/26/19 at 09:00 Nystatin (Nystatin Powder) 1 applic BID TOP Last administered on 02/09/19at 0 8:11; Admin Dose 1 APPLIC; Start 01/27/19 at 21:00 Docusate Sodium (Colace) 100 mg BID PO Last administered on 02/09/19 08:10; Admin Dose 100 MG; Start 01/28/19 at 09:00 Sodium Hypochlorite (Dakins Diluted ()) 1 applic DAILY TP Last administered on 02/09/19 08:12; Admin Dose 1 APPLIC; Start 01/28/19 at 09:40 Citalopram Hydrobromide (Celexa) 10 mg DAILY PO Last administered on 02/09/19 08:10; Admin Dose 10 MG; Start 01/30/19 at 09:00 Insulin Aspart (Novolog Insulin Pen) NOVOLOG *MILD* ALGORITHM WITH MEALS BEDTIME SC Last administered on 02/07/19 17:17; Admin Dose 2 UNIT; Start 01/30/19 at 08:00 Diazepam (Valium) 2 mg TID PO Last administered on 02/09/19 13:04; Admin Dose 2 MG; Start 02/01/19 at 21:00 Baclofen (Lioresal) 5 mg TID PO Last administered on 02/09/19 13:04; Admin Dose 5 MG; Start 02/01/19 at 21:00 Famotidine (Pepcid) 20 mg DAILY PO Last administered on 02/09/19 08:09; Admin Dose 20 MG; Start 02/02/19 at 09:00 Lorazepam (Ativan) 0.5 mg Q8H PRN PO ANXIETY Last administered on 02/09/19 13:43; Admin Dose 0.5 MG; Start 02/02/19 at 12:00 Simethicone (Mylicon) 80 mg Q8 PO Last administered on 02/09/19 13:04; Admin Dose 80 MG; Start 02/05/19 at 14:00 Oxycodone/ Acetaminophen (Percocet (5/ 325)) 1 tab Q6H PRN PO MODERATE PAIN LEVEL 4-6 Last administered on 02/09/19 14:16; Admin Dose 1 TAB; Start 02/07/19 at 14:30 SONAL ALBERT MD Feb 09, 2019 15:50
[2019-02-09 19:41] VITALS: BP 129/69; PULSE 97; RESP 19
[2019-02-10] MEDS: PIPER-TAZO 3.375 GM IV (PMX) 100 ML IVPB SCH ×5 (00:18→23:07)
[2019-02-10 02:00] VITALS: BP 126/72; PULSE 73; RESP 20
[2019-02-10] MEDS: LORAZEPAM 0.5 MG TAB PO PRN ×3 (05:40→21:57)
[2019-02-10] MEDS: OXYCODONE/ACETAMINOPHEN (5/325) TAB PO PRN ×2 (07:47→13:50)
[2019-02-10] MEDS: INSULIN ASPART [NOVOLOG] 3 ML PEN SC SCH ×4 (07:53→21:21)
[2019-02-10 08:00] VITALS: BP 149/73; PULSE 72; RESP 18
[2019-02-10] MEDS: BALSAM PERU/CASTOR OIL 60 GM TUBE TOP SCH ×2 (08:55→20:25)
[2019-02-10] MEDS: NYSTATIN 30 GM POWDER BTL TOP SCH ×2 (08:55→20:25)
[2019-02-10] MEDS: DIAZEPAM 2 MG TAB PO SCH ×3 (08:57→20:23)
[2019-02-10] MEDS: FAMOTIDINE 20 MG TAB PO SCH (08:57)
[2019-02-10] MEDS: BACLOFEN 10 MG TAB PO SCH ×3 (08:57→20:22)
[2019-02-10] MEDS: DOXYCYCLINE 100 MG TAB PO SCH ×2 (08:57→20:24)
[2019-02-10] MEDS: CITALOPRAM 20 MG TAB PO SCH (08:58)
[2019-02-10] MEDS: DAKINS 0.0125%(1/40) 473 ML SOLUTION TP SCH (09:04)
[2019-02-10] MEDS: COLLAGENASE 5 GM (UD JAR) TOP SCH (09:04)
--- NOTE | 2019-02-10 11:48 | PN ---
Date/Time of Note Date/Time of Note DATE: 02/10/19 TIME: 11:44 Assessment/Plan Lines/Catheters IV Catheter Type (from Nrsg): Mid Line Valadez in Place (from Nrs): Yes Assessment/Plan Chief Complaint/Hosp Course 1. Pneumoperitoneum with likely perforation of the bladder. Previously family did not consent to proceeding to surgery. She has significantly improved. Extubated; CT cystogram noted without contrast leak -Supportive measures -Diet as tolerated -Pain management -Per urology -DC okay from surgical standpoint. Will need urology follow-up 2. UTI: -abx per sensitivity -frequent bladder emptying/cath care 3. Hypochromic anemia: Status post PRBC transfusion, H&H stable -Monitor and transfuse as needed 4. Multiple wounds: + Wound cultures -local care> added Dakin's -frequent turning and off-loading -low air loss mattress -vitamin c -short term zinc -optimize nutrition _abx per ID 5. Transaminitis: Likely 2/2 #5 -Trend 6. NSTEMI: -Cardiac optimization>per cards 7. Possible left knee effusion -Per medical team; consider Ortho consult 8. Anxiety: Currently on Ativan -Psych optimization Thank you. Patient seen and examined in collaboration with Dr. Osei Sanford. Subjective 24 Hr Interval Summary Feels well. No fevers, chills, sob, congested cough, cp, palpitations, keita, dizziness, nausea, vomiting, diarrhea, dysuria. Exam/Review of Systems Vital Signs Vitals Vital Signs Date Temp Pulse Resp B/P (MAP) Pulse Ox O2 O2 Flow FiO2 Time Delivery Rate 02/10/19 98.0 72 18 149/73 97 Room Air 08:00 (98) Intake and Output 02/09/19 02/09/19 02/10/19 1515:00 23:00 07:00 IntakeIntake Total 1100 ml 420 ml 200 ml OutputOutput Total 1500 ml 1950 ml BalanceBalance 1100 ml -1080 ml -1750 ml Exam Free Text/Dictation Constitutional: NAD, well developed; Psych: anxiety moderate Head: normocephalic, atraumatic Eyes: nl conjunctiva, EOMI, nl lids, nl sclera ENMT: nl external ears & nose, no nl lips & teeth (poor dentition), mucosa pink and moist Neck: supple, non-tender; No jvd Respiratory: normal air movement; No congested cough, No labored breathing Cardiovascular: regular rate and rhythm, nl pulses; No edema Gastrointestinal: soft, non-distended, min tender, no rebound Genitourinary - Female: nl external genitalia Musculoskeletal: nl extremities to inspection, nl gait and stance Extremities: normal pulses Neurological: nl speech, no normal strength (generalized weakness) Skin: No rash or lesions, left hip wound: packed, scant drainage Lymph: nl lymph nodes Results Result Diagram: 02/09/19 1011 02/09/19 1011 MASSIMO WATKINS NP Feb 10, 2019 11:48
--- NOTE | 2019-02-10 12:42 | CONS ---
Assessment/Plan Assessment/Plan Hospital Course (Demo Recall) #Anemia -patient's initial Hg of 2.6 was likely secondary to GIB and perforated viscous. Stool ob at that time was negative. -anemia panel is consistent with iron deficiency -s/p Ferrlecit 125 mg IV x 5 days completed 01/30. Hg around 9 #Sepsis -2/2 UTI and wound infection -continue antibiotics. pt on zosyn #Perforated viscous -continue conservative management per surgery -pt is now stable #JACKIE -renal following -Creatine did bump to 1.35 Consultation Date/Type/Reason Admit Date/Time Jan 16, 2019 at 23:33 Initial Consult Date 01/25/19 Type of Consult hematology Reason for Consultation anemia Requesting Provider: SONAL ALBERT MD Date/Time of Note DATE: 02/10/19 TIME: 12:41 24 HR Interval Summary Free Text/Dictation no acute overnight events. still requiring pain meds Exam/Review of Systems Exam Vitals Vital Signs Date Temp Pulse Resp B/P (MAP) Pulse Ox O2 O2 Flow FiO2 Time Delivery Rate 02/10/19 98.0 72 18 149/73 97 Room Air 08:00 (98) Intake and Output 02/09/19 02/09/19 02/10/19 1515:00 23:00 07:00 IntakeIntake Total 1100 ml 420 ml 200 ml OutputOutput Total 1500 ml 1950 ml BalanceBalance 1100 ml -1080 ml -1750 ml Constitutional: alert, oriented Psych: anxiety, depression Head: normocephalic Eyes: nl conjunctiva ENMT: nl external ears & nose Neck: supple Respiratory: clear to auscultation Cardiovascular: regular rate and rhythm Gastrointestinal: soft Musculoskeletal: nl extremities to inspection Results Result Diagram: 02/09/19 1011 02/09/19 1011 Results 24hrs Laboratory Tests Test 02/09/19 17:00 02/09/19 20:27 02/10/19 07:49 02/10/19 12:30 Bedside Glucose 121 103 89 174 Medications Medication Current Medications Albuterol (Ventolin Hfa) 4 puff Q2H RESP THERAPY PRN INH SHORTNESS OF BREATH; Start 01/17/19 at 00:00 Ipratropium [place] (Atrovent Hfa) 4 puff Q2H RESP THERAPY PRN INH SHORTNESS OF BREATH; Start 01/17/19 at 00:00 Acetaminophen (Tylenol Liquid) 650 mg Q6H PRN PO PAIN LEVEL 1-3 OR FEVER; Start 01/17/19 at 00:00 Miscellaneous Information 1 ea NOTE XX ; Start 01/17/19 at 11:00 Glucose (Glutose) 15 gm Q15M PRN PO DECREASED GLUCOSE; Start 01/17/19 at 11:00 Glucose (Glutose) 22.5 gm Q15M PRN PO DECREASED GLUCOSE; Start 01/17/19 at 11:00 Dextrose (D50w Syringe) 25 ml Q15M PRN IV DECREASED GLUCOSE; Start 01/17/19 at 11:00 Dextrose (D50w Syringe) 50 ml Q15M PRN IV DECREASED GLUCOSE; Start 01/17/19 at 11:00 Glucagon (Glucagen) 1 mg Q15M PRN IM DECREASED GLUCOSE; Start 01/17/19 at 11:00 Glucose (Glutose) 15 gm Q15M PRN BUCCAL DECREASED GLUCOSE; Start 01/17/19 at 11:00 Collagenase (Santyl) 1 applic DAILY TOP Last administered on 02/10/19 09:04; Admin Dose 1 APPLIC; Start 01/17/19 at 17:00 Piperacillin Sod/ Tazobactam Sod 100 ml @ 200 mls/hr Q6 IVPB Last administered on 02/10/19 12:31; Admin Dose 200 MLS/HR; Start 01/21/19 at 12:00 Carvedilol (Coreg) 3.125 mg BID PO Last administered on 02/10/19 08:58; Admin Dose 3.125 MG; Start 01/21/19 at 09:00 Hydralazine HCl (Apresoline) 10 mg Q4H PRN IV SBP >170 Last administered on 02/05/19at 05:12; Admin Dose 10 MG; Start 01/21/19 at 14:30 Doxycycline Hyclate (Vibramycin) 100 mg BID PO Last administered on 02/10/19 08:57; Admin Dose 100 MG; Start 01/26/19 at 09:00 Nystatin (Nystatin Powder) 1 applic BID TOP Last administered on 02/10/19 08:55; Admin Dose 1 APPLIC; Start 01/27/19 at 21:00 Sodium Hypochlorite (Dakins Diluted ()) 1 applic DAILY TP Last administered on 02/10/19 09:04; Admin Dose 1 APPLIC; Start 01/28/19 at 09:40 Citalopram Hydrobromide (Celexa) 10 mg DAILY PO Last administered on 02/10/19 08:58; Admin Dose 10 MG; Start 01/30/19 at 09:00 Insulin Aspart (Novolog Insulin Pen) NOVOLOG *MILD* ALGORITHM WITH MEALS BEDTIME SC Last administered on 02/10/19 12:33; Admin Dose 1 UNIT; Start 01/30/19 at 08:00 Diazepam (Valium) 2 mg TID PO Last administered on 02/10/19 08:57; Admin Dose 2 MG; Start 02/01/19 at 21:00 Baclofen (Lioresal) 5 mg TID PO Last administered on 02/10/19 08:57; Admin Dose 5 MG; Start 02/01/19 at 21:00 Famotidine (Pepcid) 20 mg DAILY PO Last administered on 02/10/19 08:57; Admin Dose 20 MG; Start 02/02/19 at 09:00 Lorazepam (Ativan) 0.5 mg Q8H PRN PO ANXIETY Last administered on 02/10/19 05:40; Admin Dose 0.5 MG; Start 02/02/19 at 12:00 Oxycodone/ Acetaminophen (Percocet (5/ 325)) 1 tab Q6H PRN PO MODERATE PAIN LEVEL 4-6 Last administered on 02/10/19 07:47; Admin Dose 1 TAB; Start 02/07/19 at 14:30 RAJI DIXON M.D. Feb 10, 2019 12:42
[2019-02-10 14:00] VITALS: BP 138/66; PULSE 74; RESP 18
--- NOTE | 2019-02-10 15:47 | PN ---
Date/Time of Note Date/Time of Note DATE: 02/10/19 TIME: 15:24 Assessment/Plan VTE Prophylaxis Risk score (from Nsg)>0 risk: 2 SCD applied (from Nsg): Yes Pharmacological prophylaxis: heparin Lines/Catheters IV Catheter Type (from Nrsg): Mid Line Urinary Cath still in place: Yes Reason Cath still needed: urinary retention Assessment/Plan Hospital Course EXAM: Well appearing, in NAD, Aox3 RRR CTAB Soft nt nd Contracted LEs L hip pressure ulcer 59 yo female with chronic debility and leg weakness who presented with sepsis, severe anemia, and perforated viscus Perforated viscus: - conservative management per surgery - resolved Hip OM: - Abx course per ID Concern for colovesicular fistula: -CT pyelogram without fistula. Management per Dr finley - Continue may Macrocytic anemia secondary to elevated reticulocyte count - Status post 4 units of packed red blood cells - stable Iron deficiency: - IV iron Acute kidney injury secondary to severe septic shock - Renal function improved to baseline B/l LE weakness: - PT/OT Anxiety: - Valium TID Prophylaxis: SCDs, Protonix Discharge planning; To SNF when workup/management completed Result Diagram: 02/09/19 1011 02/09/19 1011 Results 24hrs Laboratory Tests Test 02/09/19 17:00 02/09/19 20:27 02/10/19 07:49 02/10/19 12:30 Bedside Glucose 121 103 89 174 Subjective 24 Hr Interval Summary Free Text/Dictation No change to clinical status Awaiting placement Feels well Exam/Review of Systems Exam Vitals Vital Signs Date Temp Pulse Resp B/P (MAP) Pulse Ox O2 O2 Flow FiO2 Time Delivery Rate 02/10/19 97.9 74 18 138/66 96 Room Air 14:00 (90) Intake and Output 02/09/19 02/09/19 02/10/19 1515:00 23:00 07:00 IntakeIntake Total 1100 ml 420 ml 200 ml OutputOutput Total 1500 ml 1950 ml BalanceBalance 1100 ml -1080 ml -1750 ml Results Results 24hrs Laboratory Tests Test 02/09/19 17:00 02/09/19 20:27 02/10/19 07:49 02/10/19 12:30 Bedside Glucose 121 103 89 174 Medications Medication Current Medications Albuterol (Ventolin Hfa) 4 puff Q2H RESP THERAPY PRN INH SHORTNESS OF BREATH; Start 01/17/19 at 00:00 Ipratropium [place] (Atrovent Hfa) 4 puff Q2H RESP THERAPY PRN INH SHORTNESS OF BREATH; Start 01/17/19 at 00:00 Acetaminophen (Tylenol Liquid) 650 mg Q6H PRN PO PAIN LEVEL 1-3 OR FEVER; Start 01/17/19 at 00:00 Miscellaneous Information 1 ea NOTE XX ; Start 01/17/19 at 11:00 Glucose (Glutose) 15 gm Q15M PRN PO DECREASED GLUCOSE; Start 01/17/19 at 11:00 Glucose (Glutose) 22.5 gm Q15M PRN PO DECREASED GLUCOSE; Start 01/17/19 at 11:00 Dextrose (D50w Syringe) 25 ml Q15M PRN IV DECREASED GLUCOSE; Start 01/17/19 at 11:00 Dextrose (D50w Syringe) 50 ml Q15M PRN IV DECREASED GLUCOSE; Start 01/17/19 at 11:00 Glucagon (Glucagen) 1 mg Q15M PRN IM DECREASED GLUCOSE; Start 01/17/19 at 11:00 Glucose (Glutose) 15 gm Q15M PRN BUCCAL DECREASED GLUCOSE; Start 01/17/19 at 11:00 Collagenase (Santyl) 1 applic DAILY TOP Last administered on 02/10/19at 09:04; A dmin Dose 1 APPLIC; Start 01/17/19 at 17:00 Piperacillin Sod/ Tazobactam Sod 100 ml @ 200 mls/hr Q6 IVPB Last administered on 02/10/19at 12:31; Admin Dose 200 MLS/HR; Start 01/21/19 at 12:00 Carvedilol (Coreg) 3.125 mg BID PO Last administered on 02/10/19at 08:58; Admin Dose 3.125 MG; Start 01/21/19 at 09:00 Hydralazine HCl (Apresoline) 10 mg Q4H PRN IV SBP >170 Last administered on 02/05/19at 05:12; Admin Dose 10 MG; Start 01/21/19 at 14:30 Doxycycline Hyclate (Vibramycin) 100 mg BID PO Last administered on 02/10/19at 08:57; Admin Dose 100 MG; Start 01/26/19 at 09:00 Nystatin (Nystatin Powder) 1 applic BID TOP Last administered on 02/10/19 08:55; Admin Dose 1 APPLIC; Start 01/27/19 at 21:00 Sodium Hypochlorite (Dakins Diluted ()) 1 applic DAILY TP Last administered on 02/10/19 09:04; Admin Dose 1 APPLIC; Start 01/28/19 at 09:40 Citalopram Hydrobromide (Celexa) 10 mg DAILY PO Last administered on 02/10/19 08:58; Admin Dose 10 MG; Start 01/30/19 at 09:00 Insulin Aspart (Novolog Insulin Pen) NOVOLOG *MILD* ALGORITHM WITH MEALS BEDTIME SC Last administered on 02/10/19 12:33; Admin Dose 1 UNIT; Start 01/30/19 at 08:00 Diazepam (Valium) 2 mg TID PO Last administered on 02/10/19 12:44; Admin Dose 2 MG; Start 02/01/19 at 21:00 Baclofen (Lioresal) 5 mg TID PO Last administered on 02/10/19 12:44; Admin Dose 5 MG; Start 02/01/19 at 21:00 Famotidine (Pepcid) 20 mg DAILY PO Last administered on 02/10/19 08:57; Admin Dose 20 MG; Start 02/02/19 at 09:00 Lorazepam (Ativan) 0.5 mg Q8H PRN PO ANXIETY Last administered on 02/10/19 13:50; Admin Dose 0.5 MG; Start 02/02/19 at 12:00 Oxycodone/ Acetaminophen (Percocet (5/ 325)) 1 tab Q6H PRN PO MODERATE PAIN LEVEL 4-6 Last administered on 02/10/19 13:50; Admin Dose 1 TAB; Start 02/07/19 at 14:30 SONAL ALBERT MD Feb 10, 2019 15:47
[2019-02-10 20:04] VITALS: BP 151/79; PULSE 76; RESP 18
[2019-02-11 02:00] VITALS: BP 137/81; PULSE 67; RESP 17
[2019-02-11] MEDS: OXYCODONE/ACETAMINOPHEN (5/325) TAB PO PRN ×4 (02:47→23:55)
[2019-02-11] MEDS: PIPER-TAZO 3.375 GM IV (PMX) 100 ML IVPB SCH ×4 (06:19→23:55)
--- NOTE | 2019-02-11 07:16 | CONS ---
Assessment/Plan Assessment/Plan Hospital Course (Demo Recall) 1) pneumoperitoneum and sepsis could be related to pt taking motrin for some pain continue with vanco/zosyn at present to renally dose them await decision by family regarding surgery vs hospice 01/18 - continue with vanco/zosyn CoNS in blood, only one bottle, likely represents contamination e.coli in urine is sensitive to the zosyn pt has EtOH abuse lactic acid has normalized 01/19 - MRSA in nasal area, likely perf is gastric or duodenal to continue with vanco at present and zosyn decrease in platelets noted, may need to change vanco if trend continues 01/20 - no significant change a.m. labs are pending due to blood tx overnight on vanco/zosyn pt has GNR in blood cx, ID is pending but sensitive to zosyn 01/21 - increase dose of zosyn as renal function is further improved awaits CT abd/pelv repeat to see if pt can start to eat alcaligenes was also in blood cx and is a stool bacteria 01/22 - pt passed swallow eval for oral contrast, but CT is still pending continue with vanco/zosyn at present 01/24 - await CT results, pt has tolerated clear liquids though on vanco/zosyn to continue at present pt will need zosyn thru 01/29/19 at least (pt will need eval for possible L hip osteo and if present will need a longer course of the zosyn when pt on full orals will change vanco to doxycycline 01/26 - continue with zosyn, change vanco to doxycycline 01/27 - stable and eating soft foods without difficulty pt to get CT cystogram to see if pt has fistula from bladder 01/31 - pt is eating well without abd pain CT cystogram is pending consider pain management team consult 02/02 - CT cystogram did not show fistula await Dr. Dallas input regarding possible cystoscopy recommend pain management consult 2)severe anemia pt is being transfused only smears of stool since admission to get hemoccult 01/18 - Hgb is more stable 01/19 - drop in Hgb again, will need blood tx again 01/20 - pt tx again, a.m. labs are pending 01/21 - Hgb is at 9 now 01/22 - Hgb is stable 01/28 - Hgb remains stable 3) ARF with pyuria and hematuria (e.coli in urine) improving with hydration and blood tx await urine cx results 01/18 - improving urine output and creatinine urine cx has e.coli that is sensitive to zosyn renal u/s suggests hydro on the R and possible renal clot or debris on L 01/19 - further improvement in creatinine on zosyn for e.coli in urine 01/21 - further improvement in renal function 01/22 - creatinine almost normal 01/24 - creatinine has normalized while on vanco 4) elevated troponins likely due to stress from severe anemia 5) hepatitis again likely due to sepsis and severe anemia check hep serologies 01/18 - hep serologies are pending 01/19 - neg hep serologies and HIV LFT's are trending down 6) L hip eschar/decubitus with probable osteo unstageable wound cx was ordered 01/18 - wound cx has not been done, nurse was informed 01/19 - wound cx was obtained and is pending 01/20 - wound cx has GPC growing 01/21 - MRSA in wound cx from hip, continue with vanco at present platelets are improving 01/22 - MRSA and alcaligenes was in wound cx ESR is extremely high, pt will likely need MRI of L hip area to see if osteomyelitis is present when pt is more stable 01/24 - when pt is eating will order MRI of L hip to see if osteo is present (pt h as deep ulcer there and very high ESR) continue vanco/zosyn at present 01/26 - I will order MRI with contrast to L hip area on zosyn/doxy now 01/28 - MRI done and shows probable septic arthritis and possible early osteo I would continue with doxy/zosyn for 4 week regimen (thru 02/12/19) ESR was greatly improved (too improved?), to repeat ESR in a.m. 01/31 - doubt pt has AVN of hip but more likely infection given depth of ulcer the same area ESR is much improved since admission continue with zosyn/doxy thru 02/12/1902/02 - stable on zosyn/doxy, check ESR in a.m. continue with current antibiotics thru 02/12 02/08 - last ESR was up will check again tomorrow with CBC continue with zosyn/doxy at present thru 02/12 02/11 - ESR is down to 42 d/c zosyn/doxy after tomorrow's dose, orders for this put into the computure I will sign off on the case 7) hypoalbuminemia pt came in with low albumin, she has likely been sick or not eating well for a while 8) CoNS bacteremia 01/18 - only one bottle has CoNS, likely this is contamination continue with vanco at present, await final wound cx results 9) decrease in platelets 01/19 - consider change of vanco if trend continues 01/20 - her MRSA is sensitive to doxy so could change vanco to that 01/21 - platelets are improved 01/22 - platelets are WNL 10) GNR in original blood cx (alcaligenes faecalis) 01/20 - ID is pending but it is sensitive to zosyn 01/21 - alcaligenes is a stool bacteria and likely related to her peritonitis continue with zosyn 01/22 - alcaligines was also in wound cx when pt is eating and more stable will order MRI of L hip to verify no osteo or abscess is present 01/24 - pt will need at least zosyn thru 01/29, longer if osteo of L hip is present 11) LE weakness consider re-consult with surgeon who did the surgery last year 02/02 - pt is not participating in PT due to pain Recommend Dr. Westbrook re-consult pt (surgeon that did her cervical surgery last year) recommend pain management 02/04 - not improving, pt not getting PT 02/08 - pt getting PT and to likely get sent to PT rehab Consultation Date/Type/Reason Admit Date/Time Jan 16, 2019 at 23:33 Initial Consult Date 01/17/19 Type of Consult ID Requesting Provider: SONAL ALBERT MD Date/Time of Note DATE: 02/11/19 TIME: 07:13 24 HR Interval Summary Free Text/Dictation pt overall doing well stools are formed according to the nurse pt states she poops whenever she eats no N, V some occasional abd pain and L hip pain Exam/Review of Systems Exam Vitals Vital Signs Date Temp Pulse Resp B/P (MAP) Pulse Ox O2 O2 Flow FiO2 Time Delivery Rate 02/11/19 98.1 67 17 137/81 97 02:00 (99) 02/10/19 Room Air 14:00 Intake and Output 02/10/19 02/10/19 02/11/19 1414:59 22:59 06:59 IntakeIntake Total 1540 ml 200 ml BalanceBalance 1540 ml 200 ml Constitutional: alert, oriented ENMT: mucosa pink and moist Respiratory: clear to auscultation Cardiovascular: regular rate and rhythm Gastrointestinal: soft, non-tender Extremities: other (L hip wound is clean, no redness, area is packed) Results Result Diagram: 02/09/19 1011 02/09/19 1011 Results 24hrs Laboratory Tests Test 02/10/19 07:49 02/10/19 12:30 02/10/19 17:22 02/10/19 21:14 Bedside Glucose 89 174 95 188 Test 02/10/19 23:06 Bedside Glucose 114 Medications Medication Current Medications Albuterol (Ventolin Hfa) 4 puff Q2H RESP THERAPY PRN INH SHORTNESS OF BREATH; Start 01/17/19 at 00:00 Ipratropium [place] (Atrovent Hfa) 4 puff Q2H RESP THERAPY PRN INH SHORTNESS OF BREATH; Start 01/17/19 at 00:00 Acetaminophen (Tylenol Liquid) 650 mg Q6H PRN PO PAIN LEVEL 1-3 OR FEVER; Start 01/17/19 at 00:00 Miscellaneous Information 1 ea NOTE XX ; Start 01/17/19 at 11:00 Glucose (Glutose) 15 gm Q15M PRN PO DECREASED GLUCOSE; Start 01/17/19 at 11:00 Glucose (Glutose) 22.5 gm Q15M PRN PO DECREASED GLUCOSE; Start 01/17/19 at 11:00 Dextrose (D50w Syringe) 25 ml Q15M PRN IV DECREASED GLUCOSE; Start 01/17/19 at 11:00 Dextrose (D50w Syringe) 50 ml Q15M PRN IV DECREASED GLUCOSE; Start 01/17/19 at 11:00 Glucagon (Glucagen) 1 mg Q15M PRN IM DECREASED GLUCOSE; Start 01/17/19 at 11:00 Glucose (Glutose) 15 gm Q15M PRN BUCCAL DECREASED GLUCOSE; Start 01/17/19 at 11:00 Collagenase (Santyl) 1 applic DAILY TOP Last administered on 02/10/19at 09:04; Admin Dose 1 APPLIC; Start 01/17/19 at 17:00 Piperacillin Sod/ Tazobactam Sod 100 ml @ 200 mls/hr Q6 IVPB Last administered on 02/11/19 06:19; Admin Dose 200 MLS/HR; Start 01/21/19 at 12:00 Carvedilol (Coreg) 3.125 mg BID PO Last administered on 02/10/19 20:21; Admin Dose 3.125 MG; Start 01/21/19 at 09:00 Hydralazine HCl (Apresoline) 10 mg Q4H PRN IV SBP >170 Last administered on 02/05/19 05:12; Admin Dose 10 MG; Start 01/21/19 at 14:30 Doxycycline Hyclate (Vibramycin) 100 mg BID PO Last administered on 02/10/19 20:24; Admin Dose 100 MG; Start 01/26/19 at 09:00 Nystatin (Nystatin Powder) 1 applic BID TOP Last administered on 02/10/19 20:25; Admin Dose 1 APPLIC; Start 01/27/19 at 21:00 Sodium Hypochlorite (Dakins Diluted (40)) 1 applic DAILY TP Last administered on 02/10/19 09:04; Admin Dose 1 APPLIC; Start 01/28/19 at 09:40 Citalopram Hydrobromide (Celexa) 10 mg DAILY PO Last administered on 02/10/19 08:58; Admin Dose 10 MG; Start 01/30/19 at 09:00 Insulin Aspart (Novolog Insulin Pen) NOVOLOG *MILD* ALGORITHM WITH MEALS BEDTIME SC Last administered on 02/10/19 21:21; Admin Dose 1 UNIT; Start 01/30/19 at 08:00 Diazepam (Valium) 2 mg TID PO Last administered on 02/10/19 20:23; Admin Dose 2 MG; Start 02/01/19 at 21:00 Baclofen (Lioresal) 5 mg TID PO Last administered on 02/10/19 20:22; Admin Dose 5 MG; Start 02/01/19 at 21:00 Famotidine (Pepcid) 20 mg DAILY PO Last administered on 02/10/19 08:57; Admin Dose 20 MG; Start 02/02/19 at 09:00 Lorazepam (Ativan) 0.5 mg Q8H PRN PO ANXIETY Last administered on 02/10/19at 21:57; Admin Dose 0.5 MG; Start 02/02/19 at 12:00 Oxycodone/ Acetaminophen (Percocet (5/ 325)) 1 tab Q6H PRN PO MODERATE PAIN LEVEL 4-6 Last administered on 02/11/19at 02:47; Admin Dose 1 TAB; Start 02/07/19 at 14:30 PATSY LEVY MD Feb 11, 2019 07:16
[2019-02-11] MEDS: LORAZEPAM 0.5 MG TAB PO PRN ×2 (07:53→16:34)
[2019-02-11 07:57] VITALS: BP 151/87; PULSE 62; RESP 18
[2019-02-11] MEDS: INSULIN ASPART [NOVOLOG] 3 ML PEN SC SCH ×4 (08:00→20:57)
[2019-02-11] MEDS: CITALOPRAM 20 MG TAB PO SCH (08:35)
[2019-02-11] MEDS: COLLAGENASE 5 GM (UD JAR) TOP SCH (08:35)
[2019-02-11] MEDS: DIAZEPAM 2 MG TAB PO SCH ×2 (08:35→12:33)
[2019-02-11] MEDS: FAMOTIDINE 20 MG TAB PO SCH (08:35)
[2019-02-11] MEDS: DOXYCYCLINE 100 MG TAB PO SCH ×2 (08:35→20:57)
[2019-02-11] MEDS: BACLOFEN 10 MG TAB PO SCH ×3 (08:36→20:58)
[2019-02-11] MEDS: BALSAM PERU/CASTOR OIL 60 GM TUBE TOP SCH ×2 (08:42→21:00)
[2019-02-11] MEDS: DAKINS 0.0125%(1/40) 473 ML SOLUTION TP SCH (08:42)
[2019-02-11] MEDS: NYSTATIN 30 GM POWDER BTL TOP SCH ×2 (08:44→21:00)
--- NOTE | 2019-02-11 09:32 | CONS ---
Assessment/Plan Assessment/Plan Hospital Course (Demo Recall) #Anemia -patient's initial Hg of 2.6 was likely secondary to GIB and perforated viscous. Stool ob at that time was negative. -anemia panel is consistent with iron deficiency -s/p Ferrlecit 125 mg IV x 5 days completed 01/30. Hg stable at 9.6 #Sepsis -2/2 UTI and wound infection -continue antibiotics. pt on zosyn #Perforated viscous -continue conservative management per surgery -pt is now stable #JACKIE -renal following -Creatine did bump to 1.35 Consultation Date/Type/Reason Admit Date/Time Jan 16, 2019 at 23:33 Initial Consult Date 01/25/19 Type of Consult hematology Reason for Consultation anemia Requesting Provider: SONAL ALBERT MD Date/Time of Note DATE: 02/11/19 TIME: 09:31 24 HR Interval Summary Free Text/Dictation no acute overnight events Exam/Review of Systems Exam Vitals Vital Signs Date Temp Pulse Resp B/P (MAP) Pulse Ox O2 O2 Flow FiO2 Time Delivery Rate 02/11/19 98.3 62 18 151/87 97 Room Air 07:57 (108) Intake and Output 02/10/19 02/10/19 02/11/19 1515:00 23:00 07:00 IntakeIntake Total 1540 ml 200 ml BalanceBalance 1540 ml 200 ml Constitutional: alert, oriented Psych: no complaints Head: normocephalic Eyes: nl conjunctiva Neck: supple Respiratory: clear to auscultation Cardiovascular: regular rate and rhythm Gastrointestinal: soft Musculoskeletal: nl extremities to inspection Extremities: normal pulses Results Result Diagram: 02/09/19 1011 02/09/19 1011 Results 24hrs Laboratory Tests Test 02/10/19 12:30 02/10/19 17:22 02/10/19 21:14 02/10/19 23:06 Bedside Glucose 174 95 188 114 Test 02/11/19 08:09 Bedside Glucose 85 Medications Medication Current Medications Albuterol (Ventolin Hfa) 4 puff Q2H RESP THERAPY PRN INH SHORTNESS OF BREATH; Start 01/17/19 at 00:00 Ipratropium [place] (Atrovent Hfa) 4 puff Q2H RESP THERAPY PRN INH SHORTNESS OF BREATH; Start 01/17/19 at 00:00 Acetaminophen (Tylenol Liquid) 650 mg Q6H PRN PO PAIN LEVEL 1-3 OR FEVER; Start 01/17/19 at 00:00 Miscellaneous Information 1 ea NOTE XX ; Start 01/17/19 at 11:00 Glucose (Glutose) 15 gm Q15M PRN PO DECREASED GLUCOSE; Start 01/17/19 at 11:00 Glucose (Glutose) 22.5 gm Q15M PRN PO DECREASED GLUCOSE; Start 01/17/19 at 11:00 Dextrose (D50w Syringe) 25 ml Q15M PRN IV DECREASED GLUCOSE; Start 01/17/19 at 11:00 Dextrose (D50w Syringe) 50 ml Q15M PRN IV DECREASED GLUCOSE; Start 01/17/19 at 11:00 Glucagon (Glucagen) 1 mg Q15M PRN IM DECREASED GLUCOSE; Start 01/17/19 at 11:00 Glucose (Glutose) 15 gm Q15M PRN BUCCAL DECREASED GLUCOSE; Start 01/17/19 at 11:00 Collagenase (Santyl) 1 applic DAILY TOP Last administered on 02/11/19at 08:35; Admin Dose 1 APPLIC; Start 01/17/19 at 17:00 Piperacillin Sod/ Tazobactam Sod 100 ml @ 200 mls/hr Q6 IVPB Last administered on 02/11/19at 06:19; Admin Dose 200 MLS/HR; Start 01/21/19 at 12:00; Stop 02/13/19 at 01:00 Carvedilol (Coreg) 3.125 mg BID PO Last administered on 02/11/19at 08:36; Admin Dose 3.125 MG; Start 01/21/19 at 09:00 Hydralazine HCl (Apresoline) 10 mg Q4H PRN IV SBP >170 Last administered on 02/05/19at 05:12; Admin Dose 10 MG; Start 01/21/19 at 14:30 Doxycycline Hyclate (Vibramycin) 100 mg BID PO Last administered on 02/11/19at 08:35; Admin Dose 100 MG; Start 01/26/19 at 09:00; Stop 02/13/19 at 01:00 Nystatin (Nystatin Powder) 1 applic BID TOP Last administered on 02/11/19at 08:44; Admin Dose 1 APPLIC; Start 01/27/19 at 21:00 Sodium Hypochlorite (Dakins Diluted ()) 1 applic DAILY TP Last administered on 02/11/19 08:42; Admin Dose 1 APPLIC; Start 01/28/19 at 09:40 Citalopram Hydrobromide (Celexa) 10 mg DAILY PO Last administered on 02/11/19 08:35; Admin Dose 10 MG; Start 01/30/19 at 09:00 Insulin Aspart (Novolog Insulin Pen) NOVOLOG *MILD* ALGORITHM WITH MEALS BEDTIME SC Last administered on 02/10/19 21:21; Admin Dose 1 UNIT; Start 01/30/19 at 08:00 Diazepam (Valium) 2 mg TID PO Last administered on 02/11/19 08:35; Admin Dose 2 MG; Start 02/01/19 at 21:00 Baclofen (Lioresal) 5 mg TID PO Last administered on 02/11/19 08:36; Admin Dose 5 MG; Start 02/01/19 at 21:00 Famotidine (Pepcid) 20 mg DAILY PO Last administered on 02/11/19 08:35; Admin Dose 20 MG; Start 02/02/19 at 09:00 Lorazepam (Ativan) 0.5 mg Q8H PRN PO ANXIETY Last administered on 02/11/19 07:53; Admin Dose 0.5 MG; Start 02/02/19 at 12:00 Oxycodone/ Acetaminophen (Percocet (5/ 325)) 1 tab Q6H PRN PO MODERATE PAIN LEVEL 4-6 Last administered on 02/11/19at 02:47; Admin Dose 1 TAB; Start 02/07/19 at 14:30 RAJI DIXON M.D. Feb 11, 2019 09:32
--- NOTE | 2019-02-11 13:08 | PN ---
Date/Time of Note Date/Time of Note DATE: 02/11/19 TIME: 12:49 Assessment/Plan VTE Prophylaxis Risk score (from Nsg)>0 risk: 3 SCD applied (from Nsg): Yes Pharmacological prophylaxis: heparin Lines/Catheters IV Catheter Type (from Nrsg): [place]ine Lock Urinary Cath still in place: Yes Reason Cath still needed: urinary retention Assessment/Plan Hospital Course EXAM: Well appearing, in NAD, Aox3 RRR CTAB Soft nt nd Contracted LEs L hip pressure ulcer 59 yo female with chronic debility and leg weakness who presented with sepsis, severe anemia, and perforated viscus Perforated viscus: - conservative management per surgery - resolved Hip OM: - Abx course per ID to end tomorrow Concern for colovesicular fistula: -CT pyelogram without fistula. Management per Dr dallas - Ok to remove may per Dr Dallas Macrocytic anemia secondary to elevated reticulocyte count - Status post 4 units of packed red blood cells - stable Iron deficiency: - s/p IV iron Acute kidney injury secondary to severe septic shock - Renal function improved to baseline B/l LE weakness: - PT/OT Anxiety: - Valium TID PRN Prophylaxis: SCDs, Protonix Discharge planning; To SNF when workup/management completed Result Diagram: 02/09/19 1011 02/09/19 1011 Results 24hrs Laboratory Tests Test 02/10/19 17:22 02/10/19 21:14 02/10/19 23:06 02/11/19 08:09 Bedside Glucose 95 188 114 85 Test 02/11/19 12:23 Bedside Glucose 146 Subjective 24 Hr Interval Summary Free Text/Dictation No change to clinical status Completing abx tomorrow Awaiting placement Exam/Review of Systems Exam Vitals Vital Signs Date Temp Pulse Resp B/P (MAP) Pulse Ox O2 O2 Flow FiO2 Time Delivery Rate 02/11/19 98.3 62 18 151/87 97 Room Air 07:57 (108) Intake and Output 02/10/19 02/10/19 02/11/19 1515:00 23:00 07:00 IntakeIntake Total 1540 ml 200 ml BalanceBalance 1540 ml 200 ml Results Results 24hrs Laboratory Tests Test 02/10/19 17:22 02/10/19 21:14 02/10/19 23:06 02/11/19 08:09 Bedside Glucose 95 188 114 85 Test 02/11/19 12:23 Bedside Glucose 146 Medications Medication Current Medications Albuterol (Ventolin Hfa) 4 puff Q2H RESP THERAPY PRN INH SHORTNESS OF BREATH; Start 01/17/19 at 00:00 Ipratropium [place] (Atrovent Hfa) 4 puff Q2H RESP THERAPY PRN INH SHORTNESS OF BREATH; Start 01/17/19 at 00:00 Acetaminophen (Tylenol Liquid) 650 mg Q6H PRN PO PAIN LEVEL 1-3 OR FEVER; Start 01/17/19 at 00:00 Miscellaneous Information 1 ea NOTE XX ; Start 01/17/19 at 11:00 Glucose (Glutose) 15 gm Q15M PRN PO DECREASED GLUCOSE; Start 01/17/19 at 11:00 Glucose (Glutose) 22.5 gm Q15M PRN PO DECREASED GLUCOSE; Start 01/17/19 at 11: 00 Dextrose (D50w Syringe) 25 ml Q15M PRN IV DECREASED GLUCOSE; Start 01/17/19 at 11:00 Dextrose (D50w Syringe) 50 ml Q15M PRN IV DECREASED GLUCOSE; Start 01/17/19 at 11:00 Glucagon (Glucagen) 1 mg Q15M PRN IM DECREASED GLUCOSE; Start 01/17/19 at 11:00 Glucose (Glutose) 15 gm Q15M PRN BUCCAL DECREASED GLUCOSE; Start 01/17/19 at 11:00 Collagenase (Santyl) 1 applic DAILY TOP Last administered on 02/11/19at 08:35; Admin Dose 1 APPLIC; Start 01/17/19 at 17:00 Piperacillin Sod/ Tazobactam Sod 100 ml @ 200 mls/hr Q6 IVPB Last administered on 02/11/19at 12:31; Admin Dose 200 MLS/HR; Start 01/21/19 at 12:00; Stop 02/13/19 at 01:00 Carvedilol (Coreg) 3.125 mg BID PO Last administered on 02/11/19at 08:36; Admin Dose 3.125 MG; Start 01/21/19 at 09:00 Hydralazine HCl (Apresoline) 10 mg Q4H PRN IV SBP >170 Last administered on 02/05/19at 05:12; Admin Dose 10 MG; Start 01/21/19 at 14:30 Doxycycline Hyclate (Vibramycin) 100 mg BID PO Last administered on 02/11/19 08:35; Admin Dose 100 MG; Start 01/26/19 at 09:00; Stop 02/13/19 at 01:00 Nystatin (Nystatin Powder) 1 applic BID TOP Last administered on 02/11/19 08:44; Admin Dose 1 APPLIC; Start 01/27/19 at 21:00 Sodium Hypochlorite (Dakins Diluted ()) 1 applic DAILY TP Last administered on 02/11/19 08:42; Admin Dose 1 APPLIC; Start 01/28/19 at 09:40 Citalopram Hydrobromide (Celexa) 10 mg DAILY PO Last administered on 02/11/19 08:35; Admin Dose 10 MG; Start 01/30/19 at 09:00 Insulin Aspart (Novolog Insulin Pen) NOVOLOG *MILD* ALGORITHM WITH MEALS BEDTIME SC Last administered on 02/11/19 12:33; Admin Dose 1 UNIT; Start 01/30/19 at 08:00 Diazepam (Valium) 2 mg TID PO Last administered on 02/11/19 12:33; Admin Dose 2 MG; Start 02/01/19 at 21:00 Baclofen (Lioresal) 5 mg TID PO Last administered on 02/11/19 12:33; Admin Dose 5 MG; Start 02/01/19 at 21:00 Famotidine (Pepcid) 20 mg DAILY PO Last administered on 02/11/19 08:35; Admin Dose 20 MG; Start 02/02/19 at 09:00 Lorazepam (Ativan) 0.5 mg Q8H PRN PO ANXIETY Last administered on 02/11/19 07:53; Admin Dose 0.5 MG; Start 02/02/19 at 12:00 Oxycodone/ Acetaminophen (Percocet (5/ 325)) 1 tab Q6H PRN PO MODERATE PAIN LEVEL 4-6 Last administered on 02/11/19 11:05; Admin Dose 1 TAB; Start 02/07/19 at 14:30 SONAL ALBERT MD Feb 11, 2019 13:08
[2019-02-11 14:00] VITALS: BP 132/70; PULSE 90
--- NOTE | 2019-02-11 14:09 | PN ---
Date/Time of Note Date/Time of Note DATE: 02/11/19 TIME: 14:07 Assessment/Plan Lines/Catheters IV Catheter Type (from Nrs): Saline Lock Valadez in Place (from Nrs): Yes Assessment/Plan Chief Complaint/Hosp Course 1. Pneumoperitoneum with likely perforation of the bladder. Previously family did not consent to proceeding to surgery. She has significantly improved. Extubated; CT cystogram noted without contrast leak -Supportive measures -Diet as tolerated -Pain management as needed -Per urology -DC okay from surgical standpoint. Will need urology follow-up 2. UTI: -abx per sensitivity -frequent bladder emptying/cath care 3. Hypochromic anemia: Status post PRBC transfusion, H&H stable -Monitor and transfuse as needed 4. Multiple wounds: + Wound cultures -Continue local care> Dakin's -frequent turning and off-loading -low air loss mattress -vitamin c -short term zinc -optimize nutrition _abx per ID 5. Transaminitis: Likely 2/2 #5 -Trend 6. NSTEMI: -Cardiac optimization>per cards 7. Possible left knee effusion -Per medical team; consider Ortho consult 8. Anxiety: Currently on Ativan -Psych optimization Thank you. Patient seen and examined in collaboration with Dr. Osei Sanford. Subjective 24 Hr Interval Summary Intermittent abdominal pain. Improved with medications. Intermittent anxiety. Improved with anxiolytic. Tolerating diet. + Bowel function. No fevers, chills, sob, congested cough, cp, palpitations, keita, dizziness, nausea, vomiting, diarrhea, dysuria. Exam/Review of Systems Vital Signs Vitals Vital Signs Date Temp Pulse Resp B/P (MAP) Pulse Ox O2 O2 Flow FiO2 Time Delivery Rate 02/11/19 98.3 62 18 151/87 97 Room Air 07:57 (108) Intake and Output 02/10/19 02/10/19 02/11/19 1515:00 23:00 07:00 IntakeIntake Total 1540 ml 200 ml BalanceBalance 1540 ml 200 ml Exam Free Text/Dictation Constitutional: NAD, well developed; Psych: anxiety moderate Head: normocephalic, atraumatic Eyes: nl conjunctiva, EOMI, nl lids, nl sclera ENMT: nl external ears & nose, no nl lips & teeth (poor dentition), mucosa pink and moist Neck: supple, non-tender; No jvd Respiratory: normal air movement; No congested cough, No labored breathing Cardiovascular: regular rate and rhythm, nl pulses; No edema Gastrointestinal: soft, non-distended, min tender, no rebound Genitourinary - Female: nl external genitalia Musculoskeletal: nl extremities to inspection, nl gait and stance Extremities: normal pulses Neurological: nl speech, no normal strength (generalized weakness) Skin: No rash or lesions, left hip wound: packed, scant drainage; sacral wound: Packed, minimal drainage, minimal slough Lymph: nl lymph nodes Results Result Diagram: 02/09/19 1011 02/09/19 1011 MASSIMO WATKINS NP Feb 11, 2019 14:09
[2019-02-11 19:39] VITALS: BP 146/78; PULSE 76; RESP 18
[2019-02-12 01:59] VITALS: BP 122/67; PULSE 73; RESP 18
[2019-02-12] MEDS: LORAZEPAM 0.5 MG TAB PO PRN ×2 (03:45→17:35)
[2019-02-12] MEDS: PIPER-TAZO 3.375 GM IV (PMX) 100 ML IVPB SCH ×3 (05:21→17:23)
[2019-02-12] MEDS: OXYCODONE/ACETAMINOPHEN (5/325) TAB PO PRN ×3 (05:57→21:31)
[2019-02-12] MEDS: INSULIN ASPART [NOVOLOG] 3 ML PEN SC SCH ×4 (08:00→21:00)
[2019-02-12 08:02] VITALS: BP 146/71; PULSE 72; RESP 18
[2019-02-12] MEDS: BALSAM PERU/CASTOR OIL 60 GM TUBE TOP SCH ×2 (08:22→21:37)
[2019-02-12] MEDS: COLLAGENASE 5 GM (UD JAR) TOP SCH (08:22)
[2019-02-12] MEDS: DOXYCYCLINE 100 MG TAB PO SCH ×2 (08:23→21:13)
[2019-02-12] MEDS: NYSTATIN 30 GM POWDER BTL TOP SCH ×2 (08:23→21:36)
[2019-02-12] MEDS: DAKINS 0.0125%(1/40) 473 ML SOLUTION TP SCH (08:23)
[2019-02-12] MEDS: CITALOPRAM 20 MG TAB PO SCH (08:24)
[2019-02-12] MEDS: BACLOFEN 10 MG TAB PO SCH ×3 (08:24→21:15)
[2019-02-12] MEDS: DIAZEPAM 2 MG TAB PO PRN (11:22)
--- NOTE | 2019-02-12 13:14 | CONS ---
Assessment/Plan Assessment/Plan Assessment/Plan (Daily) # Anemia-Hg stable at 9.6 -patient's initial Hg of 2.3 was likely secondary to GIB and perforated v iscous. Stool ob at that time was negative. -anemia panel is consistent with iron deficiency -s/p Ferrlecit 125 mg IV x 5 days completed 01/30. # Sepsis -2/2 UTI and wound infection -continue antibiotics. pt on zosyn # Perforated viscous -continue conservative management per surgery -pt is now stable # JACKIE -renal following -Creatine trended down to 1.16 Patient is seen in collaboration with Dr Laura Consultation Date/Type/Reason Admit Date/Time Jan 16, 2019 at 23:33 Initial Consult Date 01/25/19 Type of Consult Oncology/Hematology Reason for Consultation Anemia Requesting Provider: SONAL ALBERT MD Date/Time of Note DATE: 02/12/19 TIME: 13:12 24 HR Interval Summary Free Text/Dictation Eating in bed feels better no new events reported last night dw staff Detailed Summary Eyes: no complaints ENT: no complaints Respiratory: no complaints Cardiovascular: no complaints Gastrointestinal: no complaints Genitourinary: no complaints Musculoskeletal: restricted range of motion Skin: no complaints Neurologic: no complaints Endocrine: no complaints Lymphatic: no complaints Psychological: nl mood/affect Immunologic: no complaints Exam/Review of Systems Exam Vitals Vital Signs Date Temp Pulse Resp B/P (MAP) Pulse Ox O2 O2 Flow FiO2 Time Delivery Rate 02/12/19 98.1 72 18 146/71 97 08:02 (96) 02/11/19 Room Air 14:00 Intake and Output 02/11/19 02/11/19 02/12/19 1515:00 23:00 07:00 IntakeIntake Total 840 ml 340 ml 320 ml OutputOutput Total 1200 ml 300 ml 2000 ml BalanceBalance -360 ml 40 ml -1680 ml Constitutional: alert, well developed Psych: nl mood/affect Eyes: nl lids, nl sclera ENMT: nl external ears & nose Respiratory: clear to auscultation Cardiovascular: nl pulses, other (s1s2) Gastrointestinal: soft, non-tender Musculoskeletal: muscle weakness, range of motion Extremities: normal pulses Neurological: nl speech, other (alert/responsive) Lymph: nontender Results Result Diagram: 02/09/19 1011 02/09/19 1011 Results 24hrs Laboratory Tests Test 02/11/19 17:11 02/11/19 20:56 02/12/19 08:21 02/12/19 12:14 Bedside Glucose 154 110 133 193 Medications Medication Current Medications Albuterol (Ventolin Hfa) 4 puff Q2H RESP THERAPY PRN INH SHORTNESS OF BREATH; Start 01/17/19 at 00:00 Ipratropium [place] (Atrovent Hfa) 4 puff Q2H RESP THERAPY PRN INH SHORTNESS OF BREATH; Start 01/17/19 at 00:00 Acetaminophen (Tylenol Liquid) 650 mg Q6H PRN PO PAIN LEVEL 1-3 OR FEVER; Start 01/17/19 at 00:00 Miscellaneous Information 1 ea NOTE XX ; Start 01/17/19 at 11:00 Glucose (Glutose) 15 gm Q15M PRN PO DECREASED GLUCOSE; Start 01/17/19 at 11:00 Glucose (Glutose) 22.5 gm Q15M PRN PO DECREASED GLUCOSE; Start 01/17/19 at 11:00 Dextrose (D50w Syringe) 25 ml Q15M PRN IV DECREASED GLUCOSE; Start 01/17/19 at 11:00 Dextrose (D50w Syringe) 50 ml Q15M PRN IV DECREASED GLUCOSE; Start 01/17/19 at 11:00 Glucagon (Glucagen) 1 mg Q15M PRN IM DECREASED GLUCOSE; Start 01/17/19 at 11:00 Glucose (Glutose) 15 gm Q15M PRN BUCCAL DECREASED GLUCOSE; Start 01/17/19 at 11:00 Collagenase (Santyl) 1 applic DAILY TOP Last administered on 02/12/19at 08:22; Admin Dose 1 APPLIC; Start 01/17/19 at 17:00 Piperacillin Sod/ Tazobactam Sod 100 ml @ 200 mls/hr Q6 IVPB Last administered on 02/12/19at 12:09; Admin Dose 200 MLS/HR; Start 01/21/19 at 12:00; Stop 02/13/19 at 01:00 Carvedilol (Coreg) 3.125 mg BID PO Last administered on 02/12/19at 08:23; Admin Dose 3.125 MG; Start 01/21/19 at 09:00 Hydralazine HCl (Apresoline) 10 mg Q4H PRN IV SBP >170 Last administered on 02/05/19 05:12; Admin Dose 10 MG; Start 01/21/19 at 14:30 Doxycycline Hyclate (Vibramycin) 100 mg BID PO Last administered on 02/12/19 08:23; Admin Dose 100 MG; Start 01/26/19 at 09:00; Stop 02/13/19 at 01:00 Nystatin (Nystatin Powder) 1 applic BID TOP Last administered on 02/12/19 08:23; Admin Dose 1 APPLIC; Start 01/27/19 at 21:00 Sodium Hypochlorite (Dakins Diluted ()) 1 applic DAILY TP Last administered on 02/12/19 08:23; Admin Dose 1 APPLIC; Start 01/28/19 at 09:40 Citalopram Hydrobromide (Celexa) 10 mg DAILY PO Last administered on 02/12/19 08:24; Admin Dose 10 MG; Start 01/30/19 at 09:00 Insulin Aspart (Novolog Insulin Pen) NOVOLOG *MILD* ALGORITHM WITH MEALS BEDTIME SC Last administered on 02/12/19 12:40; Admin Dose 2 UNIT; Start 01/30/19 at 08:00 Baclofen (Lioresal) 5 mg TID PO Last administered on 02/12/19 12:37; Admin Dose 5 MG; Start 02/01/19 at 21:00 Lorazepam (Ativan) 0.5 mg Q8H PRN PO ANXIETY Last administered on 02/12/19 03:45; Admin Dose 0.5 MG; Start 02/02/19 at 12:00 Oxycodone/ Acetaminophen (Percocet (5/ 325)) 1 tab Q6H PRN PO MODERATE PAIN LEVEL 4-6 Last administered on 02/12/19 12:08; Admin Dose 1 TAB; Start 02/07/19 at 14:30 Diazepam (Valium) 2 mg TID PRN PO anxiety Last administered on 02/12/19 11:22; Admin Dose 2 MG; Start 02/11/19 at 13:00 SHELBIE MARTINES Feb 12, 2019 13:14
[2019-02-12 14:00] VITALS: BP 137/76; PULSE 75; RESP 18
--- NOTE | 2019-02-12 15:21 | PN ---
Date/Time of Note Date/Time of Note DATE: 02/12/19 TIME: 15:21 Assessment/Plan VTE Prophylaxis Risk score (from Nsg)>0 risk: 6 SCD applied (from Nsg): Yes Pharmacological prophylaxis: heparin Lines/Catheters IV Catheter Type (from Nrsg): Peripheral IV Urinary Cath still in place: Yes Reason Cath still needed: urinary retention Assessment/Plan Hospital Course EXAM: Well appearing, in NAD, Aox3 RRR CTAB Soft nt nd Contracted LEs L hip pressure ulcer 59 yo female with chronic debility and leg weakness who presented with sepsis, severe anemia, and perforated viscus Perforated viscus: - conservative management per surgery - resolved Hip OM: - Abx course per ID to end tomorrow Concern for colovesicular fistula: -CT pyelogram without fistula. Management per Dr dallas - Ok to remove may per Dr Dallas Macrocytic anemia secondary to elevated reticulocyte count - Status post 4 units of packed red blood cells - stable Iron deficiency: - s/p IV iron Acute kidney injury secondary to severe septic shock - Renal function improved to baseline B/l LE weakness: - PT/OT Anxiety: - Valium TID PRN Prophylaxis: SCDs, Protonix Discharge planning; To SNF when workup/management completed Result Diagram: 02/09/19 1011 02/09/19 1011 Results 24hrs Laboratory Tests Test 02/11/19 17:11 02/11/19 20:56 02/12/19 08:21 02/12/19 12:14 Bedside Glucose 154 110 133 193 Subjective 24 Hr Interval Summary Free Text/Dictation Doing well Convinced to have may removed Exam/Review of Systems Exam Vitals Vital Signs Date Temp Pulse Resp B/P (MAP) Pulse Ox O2 O2 Flow FiO2 Time Delivery Rate 02/12/19 98.0 75 18 137/76 98 14:00 (96) 02/11/19 Room Air 14:00 Intake and Output 02/11/19 02/11/19 02/12/19 1515:00 23:00 07:00 IntakeIntake Total 840 ml 340 ml 320 ml OutputOutput Total 1200 ml 300 ml 2000 ml BalanceBalance -360 ml 40 ml -1680 ml Results Results 24hrs Laboratory Tests Test 02/11/19 17:11 02/11/19 20:56 02/12/19 08:21 02/12/19 12:14 Bedside Glucose 154 110 133 193 Medications Medication Current Medications Albuterol (Ventolin Hfa) 4 puff Q2H RESP THERAPY PRN INH SHORTNESS OF BREATH; Start 01/17/19 at 00:00 Ipratropium [place] (Atrovent Hfa) 4 puff Q2H RESP THERAPY PRN INH SHORTNESS OF BREATH; Start 01/17/19 at 00:00 Acetaminophen (Tylenol Liquid) 650 mg Q6H PRN PO PAIN LEVEL 1-3 OR FEVER; Start 01/17/19 at 00:00 Miscellaneous Information 1 ea NOTE XX ; Start 01/17/19 at 11:00 Glucose (Glutose) 15 gm Q15M PRN PO DECREASED GLUCOSE; Start 01/17/19 at 11:00 Glucose (Glutose) 22.5 gm Q15M PRN PO DECREASED GLUCOSE; Start 01/17/19 at 11:00 Dextrose (D50w Syringe) 25 ml Q15M PRN IV DECREASED GLUCOSE; Start 01/17/19 at 11:00 Dextrose (D50w Syringe) 50 ml Q15M PRN IV DECREASED GLUCOSE; Start 01/17/19 at 11:00 Glucagon (Glucagen) 1 mg Q15M PRN IM DECREASED GLUCOSE; Start 01/17/19 at 11:00 Glucose (Glutose) 15 gm Q15M PRN BUCCAL DECREASED GLUCOSE; Start 01/17/19 at 11:00 Collagenase (Santyl) 1 applic DAILY TOP Last administered on 02/12/19at 08:22; Admin Dose 1 APPLIC; Start 01/17/19 at 17:00 Piperacillin Sod/ Tazobactam Sod 100 ml @ 200 mls/hr Q6 IVPB Last administered on 02/12/19at 12:09; Admin Dose 200 MLS/HR; Start 01/21/19 at 12:00; Stop 02/13/19 at 01:00 Carvedilol (Coreg) 3.125 mg BID PO Last administered on 02/12/19at 08:23; Admin Dose 3.125 MG; Start 01/21/19 at 09:00 Hydralazine HCl (Apresoline) 10 mg Q4H PRN IV SBP >170 Last administered on 02/05/19at 05:12; Admin Dose 10 MG; Start 01/21/19 at 14:30 Doxycycline Hyclate (Vibramycin) 100 mg BID PO Last administered on 02/12/19 08:23; Admin Dose 100 MG; Start 01/26/19 at 09:00; Stop 02/13/19 at 01:00 Nystatin (Nystatin Powder) 1 applic BID TOP Last administered on 02/12/19 08:23; Admin Dose 1 APPLIC; Start 01/27/19 at 21:00 Sodium Hypochlorite (Dakins Diluted ()) 1 applic DAILY TP Last administered on 02/12/19 08:23; Admin Dose 1 APPLIC; Start 01/28/19 at 09:40 Citalopram Hydrobromide (Celexa) 10 mg DAILY PO Last administered on 02/12/19 08:24; Admin Dose 10 MG; Start 01/30/19 at 09:00 Insulin Aspart (Novolog Insulin Pen) NOVOLOG *MILD* ALGORITHM WITH MEALS BEDTIME SC Last administered on 02/12/19 12:40; Admin Dose 2 UNIT; Start 01/30/19 at 08:00 Baclofen (Lioresal) 5 mg TID PO Last administered on 02/12/19 12:37; Admin Dose 5 MG; Start 02/01/19 at 21:00 Lorazepam (Ativan) 0.5 mg Q8H PRN PO ANXIETY Last administered on 02/12/19 03:45; Admin Dose 0.5 MG; Start 02/02/19 at 12:00 Oxycodone/ Acetaminophen (Percocet (5/ 325)) 1 tab Q6H PRN PO MODERATE PAIN LEVEL 4-6 Last administered on 02/12/19 12:08; Admin Dose 1 TAB; Start 02/07/19 at 14:30 Diazepam (Valium) 2 mg TID PRN PO anxiety Last administered on 02/12/19 11:22; Admin Dose 2 MG; Start 02/11/19 at 13:00 SONAL ALBERT MD Feb 12, 2019 15:21
--- NOTE | 2019-02-12 15:54 | PN ---
Date/Time of Note Date/Time of Note DATE: 02/12/19 TIME: 15:52 Assessment/Plan Lines/Catheters IV Catheter Type (from Nrs): Peripheral IV Valadez in Place (from Nrs): Yes Assessment/Plan Chief Complaint/Hosp Course 1. Pneumoperitoneum with likely perforation of the bladder. Previously family did not consent to proceeding to surgery. She has significantly improved. Extubated; CT cystogram noted without contrast leak -Diet as tolerated -Pain management as needed -Per urology -DC okay from surgical standpoint. Will need urology follow-up 2. UTI: -abx per sensitivity -frequent bladder emptying/cath care 3. Hypochromic anemia: Status post PRBC transfusion, H&H stable -Monitor and transfuse as needed 4. Multiple wounds: + Wound cultures -Continue local care> Dakin's -frequent turning and off-loading -low air loss mattress -vitamin c -short term zinc -optimize nutrition _abx per ID 5. Transaminitis: Likely 2/2 #5 -Trend 6. NSTEMI: -Cardiac optimization>per cards 7. Possible left knee effusion -Per medical team; consider Ortho consult 8. Anxiety: Currently on Ativan -Psych optimization Thank you. Patient seen and examined in collaboration with Dr. Osei Sanford. Subjective 24 Hr Interval Summary Feels well. Valadez DC'd today. Intermittent back pain. Tolerating diet. + Bowel function. No fevers, chills, sob, congested cough, cp, palpitations, keita, dizziness, nausea, vomiting, diarrhea, dysuria, excessive wound drainage or odor. Exam/Review of Systems Vital Signs Vitals Vital Signs Date Temp Pulse Resp B/P (MAP) Pulse Ox O2 O2 Flow FiO2 Time Delivery Rate 02/12/19 98.0 75 18 137/76 98 14:00 (96) 02/11/19 Room Air 14:00 Intake and Output 02/11/19 02/11/19 02/12/19 1414:59 22:59 06:59 IntakeIntake Total 840 ml 340 ml 200 ml OutputOutput Total 1200 ml 300 ml 1400 ml BalanceBalance -360 ml 40 ml -1200 ml Exam Free Text/Dictation Constitutional: NAD, well developed; Psych: anxiety moderate Head: normocephalic, atraumatic Eyes: nl conjunctiva, EOMI, nl lids, nl sclera ENMT: nl external ears & nose, no nl lips & teeth (poor dentition), mucosa pink and moist Neck: supple, non-tender; No jvd Respiratory: normal air movement; No congested cough, No labored breathing Cardiovascular: regular rate and rhythm, nl pulses; No edema Gastrointestinal: soft, non-distended, min tender, no rebound Genitourinary - Female: nl external genitalia Musculoskeletal: nl extremities to inspection, nl gait and stance Extremities: normal pulses Neurological: nl speech, no normal strength (generalized weakness) Skin: No rash or lesions, left hip wound: packed, scant drainage; sacral wound: Packed, minimal drainage, minimal slough Lymph: nl lymph nodes Results Result Diagram: 02/09/19 1011 02/09/19 1011 MASSIMO WATKINS NP Feb 12, 2019 15:53
[2019-02-12 19:56] VITALS: BP 141/81; PULSE 73; RESP 20
[2019-02-12 21:15] VITALS: BP 160/84; PULSE 69
[2019-02-13] MEDS: PIPER-TAZO 3.375 GM IV (PMX) 100 ML IVPB SCH (00:14)
[2019-02-13] MEDS: LORAZEPAM 0.5 MG TAB PO PRN ×3 (01:29→19:58)
[2019-02-13 02:00] VITALS: BP 132/76; PULSE 71; RESP 20
[2019-02-13] MEDS: OXYCODONE/ACETAMINOPHEN (5/325) TAB PO PRN ×3 (05:40→21:27)
[2019-02-13] MEDS: DIAZEPAM 2 MG TAB PO PRN (07:44)
[2019-02-13 07:48] VITALS: BP 140/72; PULSE 64; RESP 18
[2019-02-13] MEDS: INSULIN ASPART [NOVOLOG] 3 ML PEN SC SCH ×4 (08:00→22:21)
[2019-02-13] MEDS: COLLAGENASE 5 GM (UD JAR) TOP SCH (08:58)
[2019-02-13] MEDS: BACLOFEN 10 MG TAB PO SCH ×3 (08:59→19:58)
[2019-02-13] MEDS: CITALOPRAM 20 MG TAB PO SCH (08:59)
[2019-02-13] MEDS: NYSTATIN 30 GM POWDER BTL TOP SCH ×2 (09:00→21:27)
[2019-02-13] MEDS: BALSAM PERU/CASTOR OIL 60 GM TUBE TOP SCH ×2 (09:00→21:00)
[2019-02-13] MEDS: DAKINS 0.0125%(1/40) 473 ML SOLUTION TP SCH (09:00)
--- NOTE | 2019-02-13 11:07 | PN ---
Date/Time of Note Date/Time of Note DATE: 02/13/19 TIME: 11:02 Assessment/Plan Lines/Catheters IV Catheter Type (from Nrs): Saline Lock Valadez in Place (from Nrs): Yes Assessment/Plan Chief Complaint/Hosp Course 1. Pneumoperitoneum with likely perforation of the bladder. Previously family did not consent to proceeding to surgery. She has significantly improved. Extubated; CT cystogram noted without contrast leak -Diet as tolerated -Pain management as needed -Per urology -DC okay from surgical standpoint. Will need urology follow-up 2. Multiple wounds: + Wound cultures -Continue local care> Dakin's -frequent turning and off-loading -low air loss mattress -vitamin c -short term zinc -optimize nutrition -abx per ID 3. Hypochromic anemia: Status post PRBC transfusion, H&H stable -Monitor and transfuse as needed 4. UTI: -abx per sensitivity -frequent bladder emptying/cath care 5. Transaminitis: Likely 2/2 #5 -Trend 6. NSTEMI: -Cardiac optimization>per cards 7. Possible left knee effusion -Per medical team; consider Ortho consult 8. Anxiety: Currently on Ativan -Psych optimization Thank you. Patient seen and examined in collaboration with Dr. Osei Sanford. Subjective 24 Hr Interval Summary Feels well. No fevers, chills, sob, congested cough, cp, palpitations, keita, dizziness, n/v/d/dysuria, excessive wound drainage/odor. Exam/Review of Systems Vital Signs Vitals Vital Signs Date Temp Pulse Resp B/P (MAP) Pulse Ox O2 O2 Flow FiO2 Time Delivery Rate 02/13/19 98.1 64 18 140/72 98 Room Air 07:48 (94) Intake and Output 02/12/19 02/12/19 02/13/19 1515:00 23:00 07:00 IntakeIntake Total 860 ml 300 ml 100 ml OutputOutput Total 900 ml 800 ml BalanceBalance -40 ml -500 ml 100 ml Exam Free Text/Dictation Constitutional: NAD, well developed; Psych: anxiety moderate Head: normocephalic, atraumatic Eyes: nl conjunctiva, EOMI, nl lids, nl sclera ENMT: nl external ears & nose, no nl lips & teeth (poor dentition), mucosa pink and moist Neck: supple, non-tender; No jvd Respiratory: normal air movement; No congested cough, No labored breathing Cardiovascular: regular rate and rhythm, nl pulses; No edema Gastrointestinal: soft, non-distended, min tender, no rebound Genitourinary - Female: nl external genitalia Musculoskeletal: nl extremities to inspection, nl gait and stance Extremities: normal pulses Neurological: nl speech, no normal strength (generalized weakness) Skin: No rash or lesions, left hip wound: packed, scant drainage; sacral wound: Packed, minimal drainage, minimal slough Lymph: nl lymph nodes Results Result Diagram: 02/09/19 1011 02/09/19 1011 MASSIMO WATKINS NP Feb 13, 2019 11:07
--- NOTE | 2019-02-13 12:49 | CONS ---
Assessment/Plan Assessment/Plan Assessment/Plan (Daily) # Anemia-Hg stable at 9.8 -patient's initial Hg of 2.3 was likely secondary to GIB and perforated v iscous. Stool ob at that time was negative. -anemia panel is consistent with iron deficiency -s/p Ferrlecit 125 mg IV x 5 days completed 01/30. # Sepsis -2/2 UTI and wound infection -continue antibiotics. pt on zosyn # Perforated viscous -continue conservative management per surgery -pt is now stable # JACKIE -renal following -Creatine trended down to 1.16 Patient is seen in collaboration with Dr Laura Consultation Date/Type/Reason Admit Date/Time Jan 16, 2019 at 23:33 Initial Consult Date 01/25/19 Type of Consult Hematology/oncology Reason for Consultation Anemia Requesting Provider: SONAL ALBERT MD Date/Time of Note DATE: 02/13/19 TIME: 12:44 24 HR Interval Summary Free Text/Dictation Eating lunch in bed feels better no new events reported last night dw staff Constitutional: improved Detailed Summary Eyes: no complaints ENT: no complaints Respiratory: no complaints Cardiovascular: no complaints Gastrointestinal: no complaints Genitourinary: other (no bladder control) Musculoskeletal: restricted range of motion Skin: no complaints Neurologic: no complaints Endocrine: no complaints Lymphatic: no complaints Psychological: no complaints Immunologic: no complaints Exam/Review of Systems Exam Vitals Vital Signs Date Temp Pulse Resp B/P (MAP) Pulse Ox O2 O2 Flow FiO2 Time Delivery Rate 02/13/19 98.1 64 18 140/72 98 Room Air 07:48 (94) Intake and Output 02/12/19 02/12/19 02/13/19 1515:00 23:00 07:00 IntakeIntake Total 860 ml 300 ml 100 ml OutputOutput Total 900 ml 800 ml BalanceBalance -40 ml -500 ml 100 ml Constitutional: alert, well developed Psych: nl mood/affect Head: atraumatic Eyes: nl lids, nl sclera ENMT: nl external ears & nose Neck: non-tender Respiratory: clear to auscultation Cardiovascular: nl pulses, other (s1s2) Gastrointestinal: soft, non-tender Musculoskeletal: muscle weakness, range of motion Extremities: normal pulses Neurological: nl speech, other (alert/reponsive) Lymph: nontender Results Result Diagram: 02/09/19 1011 02/09/19 1011 Results 24hrs Laboratory Tests Test 02/12/19 17:19 02/12/19 21:14 02/13/19 08:20 02/13/19 12:23 Bedside Glucose 216 138 104 128 Medications Medication Current Medications Albuterol (Ventolin Hfa) 4 puff Q2H RESP THERAPY PRN INH SHORTNESS OF BREATH; Start 01/17/19 at 00:00 Ipratropium [place] (Atrovent Hfa) 4 puff Q2H RESP THERAPY PRN INH SHORTNESS OF BREATH; Start 01/17/19 at 00:00 Acetaminophen (Tylenol Liquid) 650 mg Q6H PRN PO PAIN LEVEL 1-3 OR FEVER; Start 01/17/19 at 00:00 Miscellaneous Information 1 ea NOTE XX ; Start 01/17/19 at 11:00 Glucose (Glutose) 15 gm Q15M PRN PO DECREASED GLUCOSE; Start 01/17/19 at 11:00 Glucose (Glutose) 22.5 gm Q15M PRN PO DECREASED GLUCOSE; Start 01/17/19 at 11:00 Dextrose (D50w Syringe) 25 ml Q15M PRN IV DECREASED GLUCOSE; Start 01/17/19 at 11:00 Dextrose (D50w Syringe) 50 ml Q15M PRN IV DECREASED GLUCOSE; Start 01/17/19 at 11:00 Glucagon (Glucagen) 1 mg Q15M PRN IM DECREASED GLUCOSE; Start 01/17/19 at 11:00 Glucose (Glutose) 15 gm Q15M PRN BUCCAL DECREASED GLUCOSE; Start 01/17/19 at 11:00 Collagenase (Santyl) 1 applic DAILY TOP Last administered on 02/13/19at 08:58; Admin Dose 1 APPLIC; Start 01/17/19 at 17:00 Carvedilol (Coreg) 3.125 mg BID PO Last administered on 02/13/19at 08:59; Admin Dose 3.125 MG; Start 01/21/19 at 09:00 Hydralazine HCl (Apresoline) 10 mg Q4H PRN IV SBP >170 Last administered on 02/05/19at 05:12; Admin Dose 10 MG; Start 01/21/19 at 14:30 Nystatin (Nystatin Powder) 1 applic BID TOP Last administered on 02/13/19at 09:00; Admin Dose 1 APPLIC; Start 01/27/19 at 21:00 Sodium Hypochlorite (Dakins Diluted ()) 1 applic DAILY TP Last administered on 02/13/19 09:00; Admin Dose 1 APPLIC; Start 01/28/19 at 09:40 Citalopram Hydrobromide (Celexa) 10 mg DAILY PO Last administered on 02/13/19 08:59; Admin Dose 10 MG; Start 01/30/19 at 09:00 Insulin Aspart (Novolog Insulin Pen) NOVOLOG *MILD* ALGORITHM WITH MEALS BEDTIME SC Last administered on 02/12/19 17:22; Admin Dose 2 UNIT; Start 01/30/19 at 08:00 Baclofen (Lioresal) 5 mg TID PO Last administered on 02/13/19 08:59; Admin Dose 5 MG; Start 02/01/19 at 21:00 Lorazepam (Ativan) 0.5 mg Q8H PRN PO ANXIETY Last administered on 02/13/19 09:00; Admin Dose 0.5 MG; Start 02/02/19 at 12:00 Oxycodone/ Acetaminophen (Percocet (5/ 325)) 1 tab Q6H PRN PO MODERATE PAIN LEVEL 4-6 Last administered on 02/13/19 05:40; Admin Dose 1 TAB; Start 02/07/19 at 14:30 Diazepam (Valium) 2 mg TID PRN PO anxiety Last administered on 02/13/19 07:44; Admin Dose 2 MG; Start 02/11/19 at 13:00 SHELBIE MARTINES Feb 13, 2019 12:49
[2019-02-13 14:47] VITALS: BP 133/68; PULSE 64; RESP 16
--- NOTE | 2019-02-13 17:18 | PN ---
Date/Time of Note Date/Time of Note DATE: 02/13/19 TIME: 17:17 Assessment/Plan VTE Prophylaxis Risk score (from Ns)>0 risk: 6 SCD applied (from Ns): Yes Pharmacological prophylaxis: heparin Lines/Catheters IV Catheter Type (from Nrs): Saline Lock Urinary Cath still in place: Yes Reason Cath still needed: urinary retention Assessment/Plan Hospital Course EXAM: Well appearing, in NAD, Aox3 RRR CTAB Soft nt nd Contracted LEs L hip pressure ulcer 59 yo female with chronic debility and leg weakness who presented with sepsis, severe anemia, and perforated viscus Perforated viscus: - conservative management per surgery - resolved Hip OM: - s/p Abx course per ID Macrocytic anemia secondary to elevated reticulocyte count - Status post 4 units of packed red blood cells - stable Iron deficiency: - s/p IV iron Acute kidney injury secondary to severe septic shock - Renal function improved to baseline B/l LE weakness: - PT/OT Anxiety: - Valium TID PRN Prophylaxis: SCDs, Protonix Discharge planning; To SNF when accepted. Antibiotics are completed. Alternatively could return to previous living situation if family is willing to accpet Result Diagram: 02/13/19 1407 02/09/19 1011 Results 24hrs Laboratory Tests Test 02/12/19 17:19 02/12/19 21:14 02/13/19 08:20 02/13/19 12:23 Bedside Glucose 216 138 104 128 Test 02/13/19 14:07 White Blood Count 6.5 # Red Blood Count 3.31 L Hemoglobin 9.8 L Hematocrit 30.5 L Mean Corpuscular 92.1 Volume Mean Corpuscular 29.6 Hemoglobin Mean Corpuscular 32.1 Hemoglobin Concent Red Cell 15.8 H Distribution Width Platelet Count 187 Mean Platelet Volume 10.4 Immature 0.500 H Granulocytes % Neutrophils % 51.3 Lymphocytes % 34.9 Monocytes % 7.6 Eosinophils % 5.1 Basophils % 0.6 Nucleated Red Blood 0.0 Cells % Immature 0.030 Granulocytes # Neutrophils # 3.3 Lymphocytes # 2.3 Monocytes # 0.5 Eosinophils # 0.3 Basophils # 0.0 Nucleated Red Blood 0.0 Cells # Subjective 24 Hr Interval Summary Free Text/Dictation Awaiting placement Exam/Review of Systems Exam Vitals Vital Signs Date Temp Pulse Resp B/P (MAP) Pulse Ox O2 O2 Flow FiO2 Time Delivery Rate 02/13/19 98.2 64 16 133/68 97 Room Air 14:47 (89) Intake and Output 02/12/19 02/12/19 02/13/19 1515:00 23:00 07:00 IntakeIntake Total 860 ml 300 ml 100 ml OutputOutput Total 900 ml 800 ml BalanceBalance -40 ml -500 ml 100 ml Results Results 24hrs Laboratory Tests Test 02/12/19 17:19 02/12/19 21:14 02/13/19 08:20 02/13/19 12:23 Bedside Glucose 216 138 104 128 Test 02/13/19 14:07 White Blood Count 6.5 # Red Blood Count 3.31 L Hemoglobin 9.8 L Hematocrit 30.5 L Mean Corpuscular 92.1 Volume Mean Corpuscular 29.6 Hemoglobin Mean Corpuscular 32.1 Hemoglobin Concent Red Cell 15.8 H Distribution Width Platelet Count 187 Mean Platelet Volume 10.4 Immature 0.500 H Granulocytes % Neutrophils % 51.3 Lymphocytes % 34.9 Monocytes % 7.6 Eosinophils % 5.1 Basophils % 0.6 Nucleated Red Blood 0.0 Cells % Immature 0.030 Granulocytes # Neutrophils # 3.3 Lymphocytes # 2.3 Monocytes # 0.5 Eosinophils # 0.3 Basophils # 0.0 Nucleated Red Blood 0.0 Cells # Medications Medication Current Medications Albuterol (Ventolin Hfa) 4 puff Q2H RESP THERAPY PRN INH SHORTNESS OF BREATH; Start 01/17/19 at 00:00 Ipratropium [place] (Atrovent Hfa) 4 puff Q2H RESP THERAPY PRN INH SHORTNESS OF BREATH; Start 01/17/19 at 00:00 Acetaminophen (Tylenol Liquid) 650 mg Q6H PRN PO PAIN LEVEL 1-3 OR FEVER; Start 01/17/19 at 00:00 Miscellaneous Information 1 ea NOTE XX ; Start 01/17/19 at 11:00 Glucose (Glutose) 15 gm Q15M PRN PO DECREASED GLUCOSE; Start 01/17/19 at 11:00 Glucose (Glutose) 22.5 gm Q15M PRN PO DECREASED GLUCOSE; Start 01/17/19 at 11:00 Dextrose (D50w Syringe) 25 ml Q15M PRN IV DECREASED GLUCOSE; Start 01/17/19 at 11:00 Dextrose (D50w Syringe) 50 ml Q15M PRN IV DECREASED GLUCOSE; Start 01/17/19 at 11:00 Glucagon (Glucagen) 1 mg Q15M PRN IM DECREASED GLUCOSE; Start 01/17/19 at 11:00 Glucose (Glutose) 15 gm Q15M PRN BUCCAL DECREASED GLUCOSE; Start 01/17/19 at 11:00 Collagenase (Santyl) 1 applic DAILY TOP Last administered on 02/13/19 08:58; Admin Dose 1 APPLIC; Start 01/17/19 at 17:00 Carvedilol (Coreg) 3.125 mg BID PO Last administered on 02/13/19 08:59; Admin Dose 3.125 MG; Start 01/21/19 at 09:00 Hydralazine HCl (Apresoline) 10 mg Q4H PRN IV SBP >170 Last administered on 02/05/19 05:12; Admin Dose 10 MG; Start 01/21/19 at 14:30 Nystatin (Nystatin Powder) 1 applic BID TOP Last administered on 02/13/19 09:00; Admin Dose 1 APPLIC; Start 01/27/19 at 21:00 Sodium Hypochlorite (Dakins Diluted (40)) 1 applic DAILY TP Last administered on 02/13/19 09:00; Admin Dose 1 APPLIC; Start 01/28/19 at 09:40 Citalopram Hydrobromide (Celexa) 10 mg DAILY PO Last administered on 02/13/19 08:59; Admin Dose 10 MG; Start 01/30/19 at 09:00 Insulin Aspart (Novolog Insulin Pen) NOVOLOG *MILD* ALGORITHM WITH MEALS BEDTIME SC Last administered on 02/12/19 17:22; Admin Dose 2 UNIT; Start 01/30/19 at 08:00 Baclofen (Lioresal) 5 mg TID PO Last administered on 02/13/19 12:59; Admin Dose 5 MG; Start 02/01/19 at 21:00 Lorazepam (Ativan) 0.5 mg Q8H PRN PO ANXIETY Last administered on 02/13/19 09:00; Admin Dose 0.5 MG; Start 02/02/19 at 12:00 Oxycodone/ Acetaminophen (Percocet (5/ 325)) 1 tab Q6H PRN PO MODERATE PAIN LEVEL 4-6 Last administered on 02/13/19at 13:01; Admin Dose 1 TAB; Start 02/07/19 at 14:30 Diazepam (Valium) 2 mg TID PRN PO anxiety Last administered on 02/13/19at 07:44; Admin Dose 2 MG; Start 02/11/19 at 13:00 SONAL ALBERT MD Feb 13, 2019 17:18
[2019-02-13 20:00] VITALS: BP 137/75; PULSE 90; RESP 18
[2019-02-14 02:00] VITALS: BP 144/82; PULSE 68; RESP 18
[2019-02-14 07:50] VITALS: BP 159/84; PULSE 68; RESP 18
[2019-02-14] MEDS: INSULIN ASPART [NOVOLOG] 3 ML PEN SC SCH ×4 (08:00→21:00)
[2019-02-14] MEDS: LORAZEPAM 0.5 MG TAB PO PRN ×2 (08:07→16:20)
[2019-02-14] MEDS: BACLOFEN 10 MG TAB PO SCH ×3 (09:42→21:28)
[2019-02-14] MEDS: CITALOPRAM 20 MG TAB PO SCH (09:42)
[2019-02-14] MEDS: NYSTATIN 30 GM POWDER BTL TOP SCH ×2 (09:48→21:30)
--- NOTE | 2019-02-14 10:46 | PN ---
Date/Time of Note Date/Time of Note DATE: 02/14/19 TIME: 10:32 Assessment/Plan Lines/Catheters IV Catheter Type (from Nrs): Saline Lock Valadez in Place (from Nrs): No Assessment/Plan Chief Complaint/Hosp Course 1. Multiple wounds: + Wound cultures -Continue local care> Dakin's -frequent turning and off-loading -low air loss mattress -vitamin c -short term zinc -optimize nutrition -abx per ID 2. Pneumoperitoneum with likely perforation of the bladder. Previously family did not consent to proceeding to surgery and she significantly improved with conservative treatments and extubated; CT cystogram noted without contrast leak. -Diet as tolerated -Pain management as needed -Per urology -DC okay from surgical standpoint. Will need urology follow-up 3. Hypochromic anemia: Status post PRBC transfusion, H&H stable -Monitor and transfuse as needed 4. UTI: -abx per sensitivity -frequent bladder emptying/cath care 5. Transaminitis: Likely 2/2 #5 -Trend 6. NSTEMI: -Cardiac optimization>per cards 7. Possible left knee effusion -Per medical team; consider Ortho consult 8. Anxiety: Currently on Ativan -Psych optimization Thank you Subjective 24 Hr Interval Summary No acute changes. No fevers, chills, sob, congested cough, cp, palpitations, keita, dizziness, n/v/d/dysuria, excessive wound drainage/odor. Exam/Review of Systems Vital Signs Vitals Vital Signs Date Temp Pulse Resp B/P (MAP) Pulse Ox O2 O2 Flow FiO2 Time Delivery Rate 02/14/19 97.9 68 18 159/84 98 Room Air 07:50 (109) Intake and Output 02/13/19 02/13/19 02/14/19 1515:00 23:00 07:00 IntakeIntake Total 360 ml 700 ml BalanceBalance 360 ml 700 ml Exam Free Text/Dictation Constitutional: NAD, well developed; Psych: anxiety moderate Head: normocephalic, atraumatic Eyes: nl conjunctiva, EOMI, nl lids, nl sclera ENMT: nl external ears & nose, no nl lips & teeth (poor dentition), mucosa pink and moist Neck: supple, non-tender; No jvd Respiratory: normal air movement; No congested cough, No labored breathing Cardiovascular: regular rate and rhythm, nl pulses; No edema Gastrointestinal: soft, non-distended, min tender, no rebound Genitourinary - Female: nl external genitalia Musculoskeletal: nl extremities to inspection, nl gait and stance Extremities: normal pulses Neurological: nl speech, no normal strength (generalized weakness) Skin: No rash or lesions, left hip wound: packed, scant drainage; sacral wound: Packed, minimal drainage, minimal slough Lymph: nl lymph nodes Results Result Diagram: 02/13/19 1407 ALEK HANDLEY MD Feb 14, 2019 10:44
--- NOTE | 2019-02-14 11:36 | CONS ---
Assessment/Plan Assessment/Plan Hospital Course (Demo Recall) #Anemia -patient's initial Hg of 2.6 was likely secondary to GIB and perforated viscous. Stool ob at that time was negative. -anemia panel is consistent with iron deficiency -s/p Ferrlecit 125 mg IV x 5 days completed 01/30. Hg stable at 9.8 #Sepsis -2/2 UTI and wound infection -continue antibiotics. pt on zosyn #Perforated viscous -continue conservative management per surgery -pt is now stable #JACKIE -renal following -Creatine came down to 1.16 Consultation Date/Type/Reason Admit Date/Time Jan 16, 2019 at 23:33 Initial Consult Date 01/25/19 Type of Consult hematology Reason for Consultation anemia Requesting Provider: SONAL ALBERT MD Date/Time of Note DATE: 02/14/19 TIME: 11:27 24 HR Interval Summary Free Text/Dictation no acute overnight events . pt still with abdominal pain Exam/Review of Systems Exam Vitals Vital Signs Date Temp Pulse Resp B/P (MAP) Pulse Ox O2 O2 Flow FiO2 Time Delivery Rate 02/14/19 97.9 68 18 159/84 98 Room Air 07:50 (109) Intake and Output 02/13/19 02/13/19 02/14/19 1515:00 23:00 07:00 IntakeIntake Total 360 ml 700 ml BalanceBalance 360 ml 700 ml Constitutional: alert, oriented Psych: no complaints Head: normocephalic Eyes: nl conjunctiva ENMT: nl external ears & nose, nl lips & teeth Neck: supple Respiratory: clear to auscultation Cardiovascular: regular rate and rhythm Gastrointestinal: soft Musculoskeletal: nl extremities to inspection Results Result Diagram: 02/13/19 1407 Results 24hrs Laboratory Tests Test 02/13/19 12:23 02/13/19 14:07 02/13/19 17:37 02/13/19 22:11 Bedside Glucose 128 119 305 H White Blood Count 6.5 # Red Blood Count 3.31 L Hemoglobin 9.8 L Hematocrit 30.5 L Mean Corpuscular 92.1 Volume Mean Corpuscular 29.6 Hemoglobin Mean Corpuscular 32.1 Hemoglobin Concent Red Cell 15.8 H Distribution Width Platelet Count 187 Mean Platelet Volume 10.4 Immature 0.500 H Granulocytes % Neutrophils % 51.3 Lymphocytes % 34.9 Monocytes % 7.6 Eosinophils % 5.1 Basophils % 0.6 Nucleated Red Blood 0.0 Cells % Immature 0.030 Granulocytes # Neutrophils # 3.3 Lymphocytes # 2.3 Monocytes # 0.5 Eosinophils # 0.3 Basophils # 0.0 Nucleated Red Blood 0.0 Cells # Test 02/13/19 22:14 02/14/19 08:13 Bedside Glucose 115 83 Medications Medication Current Medications Albuterol (Ventolin Hfa) 4 puff Q2H RESP THERAPY PRN INH SHORTNESS OF BREATH; Start 01/17/19 at 00:00 Ipratropium [place] (Atrovent Hfa) 4 puff Q2H RESP THERAPY PRN INH SHORTNESS OF BREATH; Start 01/17/19 at 00:00 Acetaminophen (Tylenol Liquid) 650 mg Q6H PRN PO PAIN LEVEL 1-3 OR FEVER; Start 01/17/19 at 00:00 Miscellaneous Information 1 ea NOTE XX ; Start 01/17/19 at 11:00 Glucose (Glutose) 15 gm Q15M PRN PO DECREASED GLUCOSE; Start 01/17/19 at 11:00 Glucose (Glutose) 22.5 gm Q15M PRN PO DECREASED GLUCOSE; Start 01/17/19 at 11:00 Dextrose (D50w Syringe) 25 ml Q15M PRN IV DECREASED GLUCOSE; Start 01/17/19 at 11:00 Dextrose (D50w Syringe) 50 ml Q15M PRN IV DECREASED GLUCOSE; Start 01/17/19 at 11:00 Glucagon (Glucagen) 1 mg Q15M PRN IM DECREASED GLUCOSE; Start 01/17/19 at 11:00 Glucose (Glutose) 15 gm Q15M PRN BUCCAL DECREASED GLUCOSE; Start 01/17/19 at 11:00 Collagenase (Santyl) 1 applic DAILY TOP Last administered on 02/13/19at 08:58; Admin Dose 1 APPLIC; Start 01/17/19 at 17:00 Carvedilol (Coreg) 3.125 mg BID PO Last administered on 02/14/19at 09:44; Admin Dose 3.125 MG; Start 01/21/19 at 09:00 Hydralazine HCl (Apresoline) 10 mg Q4H PRN IV SBP >170 Last administered on 02/05/19at 05:12; Admin Dose 10 MG; Start 01/21/19 at 14:30 Nystatin (Nystatin Powder) 1 applic BID TOP Last administered on 02/14/19 09:48; Admin Dose 1 APPLIC; Start 01/27/19 at 21:00 Sodium Hypochlorite (Dakins Diluted ()) 1 applic DAILY TP Last administered on 02/13/19 09:00; Admin Dose 1 APPLIC; Start 01/28/19 at 09:40 Citalopram Hydrobromide (Celexa) 10 mg DAILY PO Last administered on 02/14/19 09:42; Admin Dose 10 MG; Start 01/30/19 at 09:00 Insulin Aspart (Novolog Insulin Pen) NOVOLOG *MILD* ALGORITHM WITH MEALS BEDTIME SC Last administered on 02/12/19 17:22; Admin Dose 2 UNIT; Start 01/30/19 at 08:00 Baclofen (Lioresal) 5 mg TID PO Last administered on 02/14/19 09:42; Admin Dose 5 MG; Start 02/01/19 at 21:00 Lorazepam (Ativan) 0.5 mg Q8H PRN PO ANXIETY Last administered on 02/14/19 08:07; Admin Dose 0.5 MG; Start 02/02/19 at 12:00 Oxycodone/ Acetaminophen (Percocet (5/ 325)) 1 tab Q6H PRN PO MODERATE PAIN LEVEL 4-6 Last administered on 02/13/19 21:27; Admin Dose 1 TAB; Start 02/07/19 at 14:30 Diazepam (Valium) 2 mg TID PRN PO anxiety Last administered on 02/13/19 07:44; Admin Dose 2 MG; Start 02/11/19 at 13:00 RAJI DIXON M.D. Feb 14, 2019 11:36
[2019-02-14 14:00] VITALS: BP 149/86; PULSE 73; RESP 18
--- NOTE | 2019-02-14 14:34 | PN ---
Date/Time of Note Date/Time of Note DATE: 02/14/19 TIME: 14:33 Assessment/Plan VTE Prophylaxis Risk score (from Ns)>0 risk: 2 SCD applied (from Ns): Yes Pharmacological prophylaxis: NA/contraindicated Pharm contraindication: other Lines/Catheters IV Catheter Type (from Nrsg): Saline Lock Urinary Cath still in place: No Assessment/Plan Hospital Course 59 yo female with chronic debility and leg weakness who presented with sepsis, severe anemia, and perforated viscus Perforated viscus: - conservative management per surgery - resolved Hip OM: - s/p Abx course per ID Macrocytic anemia secondary to elevated reticulocyte count - Status post 4 units of packed red blood cells - stable Iron deficiency: - s/p IV iron Acute kidney injury secondary to severe septic shock - Renal function improved to baseline B/l LE weakness: - PT/OT Anxiety: - Valium TID PRN Prophylaxis: SCDs, Protonix Discharge planning; To SNF when accepted. Antibiotics are completed. Alternatively could return to previous living situation if family is willing to accept Result Diagram: 02/13/19 1407 Results 24hrs Laboratory Tests Test 02/13/19 17:37 02/13/19 22:11 02/13/19 22:14 02/14/19 08:13 Bedside Glucose 119 305 H 115 83 Test 02/14/19 12:35 Bedside Glucose 91 Subjective 24 Hr Interval Summary Constitutional: no complaints Exam/Review of Systems Exam Vitals Vital Signs Date Temp Pulse Resp B/P (MAP) Pulse Ox O2 O2 Flow FiO2 Time Delivery Rate 02/14/19 97.9 68 18 159/84 98 Room Air 07:50 (109) Intake and Output 02/13/19 02/13/19 02/14/19 1515:00 23:00 07:00 IntakeIntake Total 360 ml 700 ml BalanceBalance 360 ml 700 ml Constitutional: alert Respiratory: clear to auscultation Cardiovascular: regular rate and rhythm Gastrointestinal: soft; No distended Musculoskeletal: nl extremities to inspection Results Results 24hrs Laboratory Tests Test 02/13/19 17:37 02/13/19 22:11 02/13/19 22:14 02/14/19 08:13 Bedside Glucose 119 305 H 115 83 Test 02/14/19 12:35 Bedside Glucose 91 Medications Medication Current Medications Albuterol (Ventolin Hfa) 4 puff Q2H RESP THERAPY PRN INH SHORTNESS OF BREATH; Start 01/17/19 at 00:00 Ipratropium [place] (Atrovent Hfa) 4 puff Q2H RESP THERAPY PRN INH SHORTNESS OF BREATH; Start 01/17/19 at 00:00 Acetaminophen (Tylenol Liquid) 650 mg Q6H PRN PO PAIN LEVEL 1-3 OR FEVER; Start 01/17/19 at 00:00 Miscellaneous Information 1 ea NOTE XX ; Start 01/17/19 at 11:00 Glucose (Glutose) 15 gm Q15M PRN PO DECREASED GLUCOSE; Start 01/17/19 at 11:00 Glucose (Glutose) 22.5 gm Q15M PRN PO DECREASED GLUCOSE; Start 01/17/19 at 11:0 0 Dextrose (D50w Syringe) 25 ml Q15M PRN IV DECREASED GLUCOSE; Start 01/17/19 at 11:00 Dextrose (D50w Syringe) 50 ml Q15M PRN IV DECREASED GLUCOSE; Start 01/17/19 at 11:00 Glucagon (Glucagen) 1 mg Q15M PRN IM DECREASED GLUCOSE; Start 01/17/19 at 11:00 Glucose (Glutose) 15 gm Q15M PRN BUCCAL DECREASED GLUCOSE; Start 01/17/19 at 11:00 Collagenase (Santyl) 1 applic DAILY TOP Last administered on 02/13/19at 08:58; Admin Dose 1 APPLIC; Start 01/17/19 at 17:00 Carvedilol (Coreg) 3.125 mg BID PO Last administered on 02/14/19at 09:44; Admin Dose 3.125 MG; Start 01/21/19 at 09:00 Hydralazine HCl (Apresoline) 10 mg Q4H PRN IV SBP >170 Last administered on 02/05/19at 05:12; Admin Dose 10 MG; Start 01/21/19 at 14:30 Nystatin (Nystatin Powder) 1 applic BID TOP Last administered on 02/14/19at 09:48; Admin Dose 1 APPLIC; Start 01/27/19 at 21:00 Sodium Hypochlorite (Dakins Diluted ()) 1 applic DAILY TP Last administered on 02/13/19at 09:00; Admin Dose 1 APPLIC; Start 01/28/19 at 09:40 Citalopram Hydrobromide (Celexa) 10 mg DAILY PO Last administered on 02/14/19 09:42; Admin Dose 10 MG; Start 01/30/19 at 09:00 Insulin Aspart (Novolog Insulin Pen) NOVOLOG *MILD* ALGORITHM WITH MEALS BEDTIME SC Last administered on 02/12/19 17:22; Admin Dose 2 UNIT; Start 01/30/19 at 08:00 Baclofen (Lioresal) 5 mg TID PO Last administered on 02/14/19 12:36; Admin Dose 5 MG; Start 02/01/19 at 21:00 Lorazepam (Ativan) 0.5 mg Q8H PRN PO ANXIETY Last administered on 02/14/19 08:07; Admin Dose 0.5 MG; Start 02/02/19 at 12:00 Oxycodone/ Acetaminophen (Percocet (5/ 325)) 1 tab Q6H PRN PO MODERATE PAIN L EVEL 4-6 Last administered on 02/13/19 21:27; Admin Dose 1 TAB; Start 02/07/19 at 14:30 Diazepam (Valium) 2 mg TID PRN PO anxiety Last administered on 02/13/19 07:44; Admin Dose 2 MG; Start 02/11/19 at 13:00 ALLISON WOLFF Feb 14, 2019 14:34
[2019-02-14] MEDS: OXYCODONE/ACETAMINOPHEN (5/325) TAB PO PRN ×2 (15:18→21:39)
[2019-02-14] MEDS: COLLAGENASE 5 GM (UD JAR) TOP SCH (15:18)
[2019-02-14] MEDS: DAKINS 0.0125%(1/40) 473 ML SOLUTION TP SCH (15:19)
[2019-02-14] MEDS: BALSAM PERU/CASTOR OIL 60 GM TUBE TOP SCH ×2 (15:19→21:29)
[2019-02-14 19:30] VITALS: BP 142/81; PULSE 71; RESP 19
[2019-02-14] MEDS: DIAZEPAM 2 MG TAB PO PRN (21:39)
[2019-02-15 02:00] VITALS: BP 120/64; RESP 17
[2019-02-15] MEDS: LORAZEPAM 0.5 MG TAB PO PRN ×3 (02:05→20:04)
[2019-02-15 07:30] VITALS: BP 144/85; PULSE 67; RESP 18
[2019-02-15] MEDS: OXYCODONE/ACETAMINOPHEN (5/325) TAB PO PRN ×3 (07:45→21:11)
[2019-02-15] MEDS: INSULIN ASPART [NOVOLOG] 3 ML PEN SC SCH ×4 (08:00→20:02)
[2019-02-15] MEDS: CITALOPRAM 20 MG TAB PO SCH (08:22)
[2019-02-15] MEDS: BACLOFEN 10 MG TAB PO SCH ×3 (08:24→20:04)
[2019-02-15] MEDS: COLLAGENASE 5 GM (UD JAR) TOP SCH (08:25)
[2019-02-15] MEDS: NYSTATIN 30 GM POWDER BTL TOP SCH ×2 (08:25→20:05)
[2019-02-15] MEDS: DAKINS 0.0125%(1/40) 473 ML SOLUTION TP SCH (08:25)
[2019-02-15] MEDS: BALSAM PERU/CASTOR OIL 60 GM TUBE TOP SCH ×2 (08:26→20:05)
--- NOTE | 2019-02-15 10:43 | CONS ---
Assessment/Plan Assessment/Plan Hospital Course (Demo Recall) #Anemia -patient's initial Hg of 2.6 was likely secondary to GIB and perforated viscous. Stool ob at that time was negative. -anemia panel is consistent with iron deficiency -s/p Ferrlecit 125 mg IV x 5 days completed 01/30. Hg stable > 9 #Sepsis -2/2 UTI and wound infection -continue antibiotics. pt on zosyn #Perforated viscous -continue conservative management per surgery -pt is now stable #JACKIE -renal following -Creatine came down to 1.16 Consultation Date/Type/Reason Admit Date/Time Jan 16, 2019 at 23:33 Initial Consult Date 01/25/19 Type of Consult hematology Reason for Consultation anemia Requesting Provider: SONAL ALBERT MD Date/Time of Note DATE: 02/15/19 TIME: 10:42 24 HR Interval Summary Free Text/Dictation no acute overnight events Exam/Review of Systems Exam Vitals Vital Signs Date Temp Pulse Resp B/P (MAP) Pulse Ox O2 O2 Flow FiO2 Time Delivery Rate 02/15/19 97.9 67 18 144/85 96 Room Air 07:30 (104) Intake and Output 02/14/19 02/14/19 02/15/19 1515:00 23:00 07:00 IntakeIntake Total 900 ml 480 ml BalanceBalance 900 ml 480 ml Constitutional: alert Psych: no complaints Head: normocephalic Eyes: nl conjunctiva ENMT: nl external ears & nose Neck: supple Respiratory: clear to auscultation Cardiovascular: regular rate and rhythm Gastrointestinal: soft Musculoskeletal: nl extremities to inspection Results Result Diagram: 02/14/192014 Results 24hrs Laboratory Tests Test 02/14/19 12:35 02/14/19 17:14 02/14/19 20:15 02/14/19 21:26 Bedside Glucose 91 104 100 White Blood Count 6.6 Red Blood Count 3.14 L Hemoglobin 9.3 L Hematocrit 28.6 L Mean Corpuscular 91.1 Volume Mean Corpuscular 29.6 Hemoglobin Mean Corpuscular 32.5 Hemoglobin Concent Red Cell 15.6 H Distribution Width Platelet Count 203 Mean Platelet Volume 9.8 Immature 0.300 Granulocytes % Neutrophils % 47.3 Lymphocytes % 40.5 Monocytes % 6.9 Eosinophils % 4.4 Basophils % 0.6 Nucleated Red Blood 0.0 Cells % Immature 0.020 Granulocytes # Neutrophils # 3.1 Lymphocytes # 2.7 Monocytes # 0.5 Eosinophils # 0.3 Basophils # 0.0 Nucleated Red Blood 0.0 Cells # Test 02/15/19 08:20 Bedside Glucose 124 Medications Medication Current Medications Albuterol (Ventolin Hfa) 4 puff Q2H RESP THERAPY PRN INH SHORTNESS OF BREATH; Start 01/17/19 at 00:00 Ipratropium [place] (Atrovent Hfa) 4 puff Q2H RESP THERAPY PRN INH SHORTNESS OF BREATH; Start 01/17/19 at 00:00 Acetaminophen (Tylenol Liquid) 650 mg Q6H PRN PO PAIN LEVEL 1-3 OR FEVER; Start 01/17/19 at 00:00 Miscellaneous Information 1 ea NOTE XX ; Start 01/17/19 at 11:00 Glucose (Glutose) 15 gm Q15M PRN PO DECREASED GLUCOSE; Start 01/17/19 at 11:00 Glucose (Glutose) 22.5 gm Q15M PRN PO DECREASED GLUCOSE; Start 01/17/19 at 11:00 Dextrose (D50w Syringe) 25 ml Q15M PRN IV DECREASED GLUCOSE; Start 01/17/19 at 11:00 Dextrose (D50w Syringe) 50 ml Q15M PRN IV DECREASED GLUCOSE; Start 01/17/19 at 11:00 Glucagon (Glucagen) 1 mg Q15M PRN IM DECREASED GLUCOSE; Start 01/17/19 at 11:00 Glucose (Glutose) 15 gm Q15M PRN BUCCAL DECREASED GLUCOSE; Start 01/17/19 at 11:00 Collagenase (Santyl) 1 applic DAILY TOP Last administered on 02/15/19at 08:25; Admin Dose 1 APPLIC; Start 01/17/19 at 17:00 Carvedilol (Coreg) 3.125 mg BID PO Last administered on 02/15/19at 08:23; Admin Dose 3.125 MG; Start 01/21/19 at 09:00 Hydralazine HCl (Apresoline) 10 mg Q4H PRN IV SBP >170 Last administered on 02/05/19at 05:12; Admin Dose 10 MG; Start 01/21/19 at 14:30 Nystatin (Nystatin Powder) 1 applic BID TOP Last administered on 02/15/19at 08:25; Admin Dose 1 APPLIC; Start 01/27/19 at 21:00 Sodium Hypochlorite (Dakins Diluted ()) 1 applic DAILY TP Last administered on 02/15/19 08:25; Admin Dose 1 APPLIC; Start 01/28/19 at 09:40 Citalopram Hydrobromide (Celexa) 10 mg DAILY PO Last administered on 02/15/19 08:22; Admin Dose 10 MG; Start 01/30/19 at 09:00 Insulin Aspart (Novolog Insulin Pen) NOVOLOG *MILD* ALGORITHM WITH MEALS BEDTIME SC Last administered on 02/12/19 17:22; Admin Dose 2 UNIT; Start 01/30/19 at 08:00 Baclofen (Lioresal) 5 mg TID PO Last administered on 02/15/19 08:24; Admin Dose 5 MG; Start 02/01/19 at 21:00 Lorazepam (Ativan) 0.5 mg Q8H PRN PO ANXIETY Last administered on 02/15/19 02:05; Admin Dose 0.5 MG; Start 02/02/19 at 12:00 Oxycodone/ Acetaminophen (Percocet (5/ 325)) 1 tab Q6H PRN PO MODERATE PAIN LEVEL 4-6 Last administered on 02/15/19 07:45; Admin Dose 1 TAB; Start 02/07/19 at 14:30 Diazepam (Valium) 2 mg TID PRN PO anxiety Last administered on 02/14/19 21:39; Admin Dose 2 MG; Start 02/11/19 at 13:00 RAJI DIXON M.D. Feb 15, 2019 10:43
[2019-02-15 13:48] VITALS: BP 155/72; PULSE 75; RESP 16
--- NOTE | 2019-02-15 15:09 | PN ---
Date/Time of Note Date/Time of Note DATE: 02/15/19 TIME: 15:09 Assessment/Plan VTE Prophylaxis Risk score (from Nsg)>0 risk: 5 Pharmacological prophylaxis: NA/contraindicated Pharm contraindication: low risk/ambulating Lines/Catheters IV Catheter Type (from Nrsg): Saline Lock Urinary Cath still in place: No Assessment/Plan Hospital Course 59 yo female with chronic debility and leg weakness who presented with sepsis, severe anemia, and perforated viscus Perforated viscus: - conservative management per surgery - resolved Hip OM: - s/p Abx course per ID Macrocytic anemia secondary to elevated reticulocyte count - Status post 4 units of packed red blood cells - stable Iron deficiency: - s/p IV iron Acute kidney injury secondary to severe septic shock - Renal function improved to baseline B/l LE weakness: - PT/OT Anxiety: - Valium TID PRN Prophylaxis: SCDs, Protonix Discharge planning; To SNF when accepted. Antibiotics are completed. Alternatively could return to previous living situation if family is willing to accept Result Diagram: 02/14/192014 Results 24hrs Laboratory Tests Test 02/14/19 17:14 02/14/19 20:15 02/14/19 21:26 02/15/19 08:20 Bedside Glucose 104 100 124 White Blood Count 6.6 Red Blood Count 3.14 L Hemoglobin 9.3 L Hematocrit 28.6 L Mean Corpuscular 91.1 Volume Mean Corpuscular 29.6 Hemoglobin Mean Corpuscular 32.5 Hemoglobin Concent Red Cell 15.6 H Distribution Width Platelet Count 203 Mean Platelet Volume 9.8 Immature 0.300 Granulocytes % Neutrophils % 47.3 Lymphocytes % 40.5 Monocytes % 6.9 Eosinophils % 4.4 Basophils % 0.6 Nucleated Red Blood 0.0 Cells % Immature 0.020 Granulocytes # Neutrophils # 3.1 Lymphocytes # 2.7 Monocytes # 0.5 Eosinophils # 0.3 Basophils # 0.0 Nucleated Red Blood 0.0 Cells # Test 02/15/19 12:30 Bedside Glucose 150 Subjective 24 Hr Interval Summary Constitutional: no complaints Exam/Review of Systems Exam Vitals Vital Signs Date Temp Pulse Resp B/P (MAP) Pulse Ox O2 O2 Flow FiO2 Time Delivery Rate 02/15/19 99.0 75 16 155/72 94 Room Air 13:48 (99) Intake and Output 02/14/19 02/14/1902/15/19 1414:59 22:59 06:59 IntakeIntake Total 900 ml 480 ml BalanceBalance 900 ml 480 ml Constitutional: alert Respiratory: clear to auscultation Cardiovascular: regular rate and rhythm Gastrointestinal: soft; No distended Musculoskeletal: nl extremities to inspection Results Results 24hrs Laboratory Tests Test 02/14/19 17:14 02/14/19 20:15 02/14/19 21:26 02/15/19 08:20 Bedside Glucose 104 100 124 White Blood Count 6.6 Red Blood Count 3.14 L Hemoglobin 9.3 L Hematocrit 28.6 L Mean Corpuscular 91.1 Volume Mean Corpuscular 29.6 Hemoglobin Mean Corpuscular 32.5 Hemoglobin Concent Red Cell 15.6 H Distribution Width Platelet Count 203 Mean Platelet Volume 9.8 Immature 0.300 Granulocytes % Neutrophils % 47.3 Lymphocytes % 40.5 Monocytes % 6.9 Eosinophils % 4.4 Basophils % 0.6 Nucleated Red Blood 0.0 Cells % Immature 0.020 Granulocytes # Neutrophils # 3.1 Lymphocytes # 2.7 Monocytes # 0.5 Eosinophils # 0.3 Basophils # 0.0 Nucleated Red Blood 0.0 Cells # Test 02/15/19 12:30 Bedside Glucose 150 Medications Medication Current Medications Albuterol (Ventolin Hfa) 4 puff Q2H RESP THERAPY PRN INH SHORTNESS OF BREATH; Start 01/17/19 at 00:00 Ipratropium [place] (Atrovent Hfa) 4 puff Q2H RESP THERAPY PRN INH SHORTNESS OF BREATH; Start 01/17/19 at 00:00 Acetaminophen (Tylenol Liquid) 650 mg Q6H PRN PO PAIN LEVEL 1-3 OR FEVER; Start 01/17/19 at 00:00 Miscellaneous Information 1 ea NOTE XX ; Start 01/17/19 at 11:00 Glucose (Glutose) 15 gm Q15M PRN PO DECREASED GLUCOSE; Start 01/17/19 at 11:00 Glucose (Glutose) 22.5 gm Q15M PRN PO DECREASED GLUCOSE; Start 01/17/19 at 11:00 Dextrose (D50w Syringe) 25 ml Q15M PRN IV DECREASED GLUCOSE; Start 01/17/19 at 11:00 Dextrose (D50w Syringe) 50 ml Q15M PRN IV DECREASED GLUCOSE; Start 01/17/19 at 11:00 Glucagon (Glucagen) 1 mg Q15M PRN IM DECREASED GLUCOSE; Start 01/17/19 at 11:00 Glucose (Glutose) 15 gm Q15M PRN BUCCAL DECREASED GLUCOSE; Start 01/17/19 at 11:00 Collagenase (Santyl) 1 applic DAILY TOP Last administered on 02/15/19 08:25; Admin Dose 1 APPLIC; Start 01/17/19 at 17:00 Carvedilol (Coreg) 3.125 mg BID PO Last administered on 02/15/19 08:23; Admin Dose 3.125 MG; Start 01/21/19 at 09:00 Hydralazine HCl (Apresoline) 10 mg Q4H PRN IV SBP >170 Last administered on 02/05/19 05:12; Admin Dose 10 MG; Start 01/21/19 at 14:30 Nystatin (Nystatin Powder) 1 applic BID TOP Last administered on 02/15/19 08:25; Admin Dose 1 APPLIC; Start 01/27/19 at 21:00 Sodium Hypochlorite (Dakins Diluted ()) 1 applic DAILY TP Last administered on 02/15/19 08:25; Admin Dose 1 APPLIC; Start 01/28/19 at 09:40 Citalopram Hydrobromide (Celexa) 10 mg DAILY PO Last administered on 02/15/19 08:22; Admin Dose 10 MG; Start 01/30/19 at 09:00 Insulin Aspart (Novolog Insulin Pen) NOVOLOG *MILD* ALGORITHM WITH MEALS BEDTIME SC Last administered on 02/15/19 12:43; Admin Dose 1 UNIT; Start 01/30/19 at 08:00 Baclofen (Lioresal) 5 mg TID PO Last administered on 02/15/19 12:40; Admin Dose 5 MG; Start 02/01/19 at 21:00 Lorazepam (Ativan) 0.5 mg Q8H PRN PO ANXIETY Last administered on 02/15/19 11:44; Admin Dose 0.5 MG; Start 02/02/19 at 12:00 Oxycodone/ Acetaminophen (Percocet (5/ 325)) 1 tab Q6H PRN PO MODERATE PAIN LEVEL 4-6 Last administered on 02/15/19 14:03; Admin Dose 1 TAB; Start 02/07/19 at 14:30 Diazepam (Valium) 2 mg TID PRN PO anxiety Last administered on 02/14/19at 21:39; Admin Dose 2 MG; Start 02/11/19 at 13:00 ALLISON WOLFF Feb 15, 2019 15:09
--- NOTE | 2019-02-15 17:14 | PN ---
Date/Time of Note Date/Time of Note DATE: 02/15/19 TIME: 17:12 Assessment/Plan Lines/Catheters IV Catheter Type (from Nrs): Saline Lock Valadez in Place (from Nrs): No Assessment/Plan Chief Complaint/Hosp Course 1. Multiple wounds: + Wound cultures -Continue local care> Dakin's -frequent turning and off-loading -low air loss mattress -vitamin c -short term zinc -optimize nutrition -abx per ID 2. Pneumoperitoneum with likely perforation of the bladder. Previously family did not consent to proceeding to surgery and she significantly improved with conservative treatments and extubated; CT cystogram noted without contrast leak. -Diet as tolerated -Pain management as needed -Per urology -DC okay from surgical standpoint. Will need urology follow-up 3. Hypochromic anemia: Status post PRBC transfusion, H&H stable -Monitor and transfuse as needed 4. UTI: -abx per sensitivity -frequent bladder emptying/cath care 5. Transaminitis: Likely 2/2 #5 -Trend 6. NSTEMI: -Cardiac optimization>per cards 7. Possible left knee effusion -Per medical team; consider Ortho consult 8. Anxiety: Currently on Ativan -Psych optimization Thank you. Patient seen and examined in collaboration with Dr. Osei Sanford. Subjective 24 Hr Interval Summary Feels well. + bowel function. No fevers, chills, sob, congested cough, cp, palp itations, keita, dizziness, n/v/d/dysuria. Exam/Review of Systems Vital Signs Vitals Vital Signs Date Temp Pulse Resp B/P (MAP) Pulse Ox O2 O2 Flow FiO2 Time Delivery Rate 02/15/19 99.0 75 16 155/72 94 Room Air 13:48 (99) Intake and Output 02/14/19 02/14/19 02/15/19 1515:00 23:00 07:00 IntakeIntake Total 900 ml 480 ml BalanceBalance 900 ml 480 ml Exam Free Text/Dictation Constitutional: NAD, well developed; Psych: anxiety moderate Head: normocephalic, atraumatic Eyes: nl conjunctiva, EOMI, nl lids, nl sclera ENMT: nl external ears & nose, no nl lips & teeth (poor dentition), mucosa pink and moist Neck: supple, non-tender; No jvd Respiratory: normal air movement; No congested cough, No labored breathing Cardiovascular: regular rate and rhythm, nl pulses; No edema Gastrointestinal: soft, non-distended, min tender, no rebound Genitourinary - Female: nl external genitalia Musculoskeletal: nl extremities to inspection, nl gait and stance Extremities: normal pulses Neurological: nl speech, no normal strength (generalized weakness) Skin: No rash or lesions, left hip wound: packed, scant drainage; sacral wound: Packed, minimal drainage, minimal slough Lymph: nl lymph nodes Results Result Diagram: 02/14/192014 MASSIMO WATKINS RECYCLING TECH Feb 15, 2019 17:14
[2019-02-15 20:00] VITALS: BP 145/65; PULSE 80; RESP 19
[2019-02-16 01:56] VITALS: BP 140/84; PULSE 69; RESP 17
[2019-02-16] MEDS: OXYCODONE/ACETAMINOPHEN (5/325) TAB PO PRN ×3 (03:19→19:03)
[2019-02-16] MEDS: LORAZEPAM 0.5 MG TAB PO PRN ×3 (05:11→23:26)
[2019-02-16 08:00] VITALS: BP 148/77; PULSE 72; RESP 18
[2019-02-16] MEDS: INSULIN ASPART [NOVOLOG] 3 ML PEN SC SCH ×4 (08:00→21:00)
[2019-02-16] MEDS: CITALOPRAM 20 MG TAB PO SCH (08:38)
[2019-02-16] MEDS: BACLOFEN 10 MG TAB PO SCH ×3 (08:38→22:00)
[2019-02-16] MEDS: DIAZEPAM 2 MG TAB PO PRN ×2 (08:39→16:02)
[2019-02-16] MEDS: NYSTATIN 30 GM POWDER BTL TOP SCH ×2 (08:42→21:00)
[2019-02-16] MEDS: COLLAGENASE 5 GM (UD JAR) TOP SCH (08:42)
[2019-02-16] MEDS: DAKINS 0.0125%(1/40) 473 ML SOLUTION TP SCH (08:42)
[2019-02-16] MEDS: BALSAM PERU/CASTOR OIL 60 GM TUBE TOP SCH ×2 (08:42→21:00)
--- NOTE | 2019-02-16 12:28 | PN ---
Date/Time of Note Date/Time of Note DATE: 02/16/19 TIME: 12:27 Assessment/Plan Lines/Catheters IV Catheter Type (from Nrs): Peripheral IV Valadez in Place (from Nrs): No Assessment/Plan Chief Complaint/Hosp Course 1. Multiple wounds: + Wound cultures -Continue local care> therapy changed today -frequent turning and off-loading -low air loss mattress -vitamin c -short term zinc -optimize nutrition -abx per ID -Debridement as needed:> Patient currently refusing 2. Pneumoperitoneum with likely perforation of the bladder. Previously family did not consent to proceeding to surgery and she significantly improved with conservative treatments and extubated; CT cystogram noted without contrast leak. -Diet as tolerated -Pain management as needed -Per urology -DC okay from surgical standpoint. Will need urology follow-up 3. Hypochromic anemia: Status post PRBC transfusion, H&H stable -Monitor and transfuse as needed 4. UTI: -abx per sensitivity -frequent bladder emptying/cath care 5. Transaminitis: Likely 2/2 #5 -Trend 6. NSTEMI: -Cardiac optimization>per cards 7. Possible left knee effusion -Per medical team; consider Ortho consult 8. Anxiety: Currently on Ativan -Psych optimization Thank you. Patient seen and examined in collaboration with Dr. Osei Sanford. Subjective 24 Hr Interval Summary Feels well. No fevers, chills, sob, congested cough, cp, palpitations, keita, dizziness, nausea, vomiting, diarrhea, dysuria, excessive wound drainage or odor. Exam/Review of Systems Vital Signs Vitals Vital Signs Date Temp Pulse Resp B/P (MAP) Pulse Ox O2 O2 Flow FiO2 Time Delivery Rate 02/16/19 98.0 72 18 148/77 97 08:00 (100) 02/15/19 Room Air 13:48 Intake and Output 02/15/19 02/15/19 02/16/19 1515:00 23:00 07:00 IntakeIntake Total 480 ml 900 ml 500 ml BalanceBalance 480 ml 900 ml 500 ml Exam Free Text/Dictation Constitutional: NAD, well developed; Psych: anxiety moderate Head: normocephalic, atraumatic Eyes: nl conjunctiva, EOMI, nl lids, nl sclera ENMT: nl external ears & nose, no nl lips & teeth (poor dentition), mucosa pink and moist Neck: supple, non-tender; No jvd Respiratory: normal air movement; No congested cough, No labored breathing Cardiovascular: regular rate and rhythm, nl pulses; No edema Gastrointestinal: soft, non-distended, min tender, no rebound Genitourinary - Female: nl external genitalia Musculoskeletal: nl extremities to inspection, nl gait and stance Extremities: normal pulses Neurological: nl speech, no normal strength (generalized weakness) Skin: No rash or lesions, left hip wound: packed, scant drainage; sacral wound: Packed, minimal drainage, minimal slough Lymph: nl lymph nodes Results Result Diagram: 02/14/192014 MASSIMO WATKINS NP Feb 16, 2019 12:28
[2019-02-16 14:00] VITALS: BP 128/69; PULSE 82; RESP 18
--- NOTE | 2019-02-16 15:02 | PN ---
Date/Time of Note Date/Time of Note DATE: 02/16/19 TIME: 15:01 Assessment/Plan VTE Prophylaxis Risk score (from Nsg)>0 risk: 5 Pharmacological prophylaxis: NA/contraindicated Pharm contraindication: other Lines/Catheters IV Catheter Type (from Nrsg): Peripheral IV Urinary Cath still in place: No Assessment/Plan Hospital Course 59 yo female with chronic debility and leg weakness who presented with sepsis, severe anemia, and perforated viscus Perforated viscus: - conservative management per surgery - resolved Hip OM: - s/p Abx course per ID Macrocytic anemia secondary to elevated reticulocyte count - Status post 4 units of packed red blood cells - stable Iron deficiency: - s/p IV iron Acute kidney injury secondary to severe septic shock - Renal function improved to baseline B/l LE weakness: - PT/OT Anxiety: - Valium TID PRN Prophylaxis: SCDs, Protonix Discharge planning; To SNF when accepted. Antibiotics are completed. Alternatively could return to previous living situation if family is willing to accept Result Diagram: 02/14/192014 Results 24hrs Laboratory Tests Test 02/15/19 17:15 02/15/19 20:01 02/16/19 08:29 02/16/19 12:57 Bedside Glucose 160 123 114 167 Subjective 24 Hr Interval Summary Constitutional: no complaints Exam/Review of Systems Exam Vitals Vital Signs Date Temp Pulse Resp B/P (MAP) Pulse Ox O2 O2 Flow FiO2 Time Delivery Rate 02/16/19 98.2 82 18 128/69 100 14:00 (88) 02/15/19 Room Air 13:48 Intake and Output 02/15/19 02/15/19 02/16/19 1414:59 22:59 06:59 IntakeIntake Total 480 ml 900 ml 500 ml BalanceBalance 480 ml 900 ml 500 ml Constitutional: alert, oriented Respiratory: clear to auscultation Gastrointestinal: soft Musculoskeletal: nl extremities to inspection Results Results 24hrs Laboratory Tests Test 02/15/19 17:15 02/15/19 20:01 02/16/19 08:29 02/16/19 12:57 Bedside Glucose 160 123 114 167 Medications Medication Current Medications Albuterol (Ventolin Hfa) 4 puff Q2H RESP THERAPY PRN INH SHORTNESS OF BREATH; Start 01/17/19 at 00:00 Ipratropium [place] (Atrovent Hfa) 4 puff Q2H RESP THERAPY PRN INH SHORTNESS OF BREATH; Start 01/17/19 at 00:00 Acetaminophen (Tylenol Liquid) 650 mg Q6H PRN PO PAIN LEVEL 1-3 OR FEVER; Start 01/17/19 at 00:00 Miscellaneous Information 1 ea NOTE XX ; Start 01/17/19 at 11:00 Glucose (Glutose) 15 gm Q15M PRN PO DECREASED GLUCOSE; Start 01/17/19 at 11:00 Glucose (Glutose) 22.5 gm Q15M PRN PO DECREASED GLUCOSE; Start 01/17/19 at 11:00 Dextrose (D50w Syringe) 25 ml Q15M PRN IV DECREASED GLUCOSE; Start 01/17/19 at 11:00 Dextrose (D50w Syringe) 50 ml Q15M PRN IV DECREASED GLUCOSE; Start 01/17/19 at 11:00 Glucagon (Glucagen) 1 mg Q15M PRN IM DECREASED GLUCOSE; Start 01/17/19 at 11:00 Glucose (Glutose) 15 gm Q15M PRN BUCCAL DECREASED GLUCOSE; Start 01/17/19 at 11:00 Collagenase (Santyl) 1 applic DAILY TOP Last administered on 02/16/19 08:42; Admin Dose 1 APPLIC; Start 01/17/19 at 17:00 Carvedilol (Coreg) 3.125 mg BID PO Last administered on 02/16/19 08:40; Admin Dose 3.125 MG; Start 01/21/19 at 09:00 Hydralazine HCl (Apresoline) 10 mg Q4H PRN IV SBP >170 Last administered on 02/05/19at 05:12; Admin Dose 10 MG; Start 01/21/19 at 14:30 Nystatin (Nystatin Powder) 1 applic BID TOP Last administered on 02/16/19 08:42; Admin Dose 1 APPLIC; Start 01/27/19 at 21:00 Sodium Hypochlorite (Dakins Diluted ()) 1 applic DAILY TP Last administered on 02/16/19 08:42; Admin Dose 1 APPLIC; Start 01/28/19 at 09:40 Citalopram Hydrobromide (Celexa) 10 mg DAILY PO Last administered on 02/16/19at 08:38; Admin Dose 10 MG; Start 01/30/19 at 09:00 Insulin Aspart (Novolog Insulin Pen) NOVOLOG *MILD* ALGORITHM WITH MEALS BEDTIME SC Last administered on 02/16/19 12:59; Admin Dose 1 UNIT; Start 01/30/19 at 08:00 Baclofen (Lioresal) 5 mg TID PO Last administered on 02/16/19 12:59; Admin Dose 5 MG; Start 02/01/19 at 21:00 Lorazepam (Ativan) 0.5 mg Q8H PRN PO ANXIETY Last administered on 02/16/19 14:27; Admin Dose 0.5 MG; Start 02/02/19 at 12:00 Oxycodone/ Acetaminophen (Percocet (5/ 325)) 1 tab Q6H PRN PO MODERATE PAIN LEVEL 4-6 Last administered on 02/16/19 11:28; Admin Dose 1 TAB; Start 02/07/19 at 14:30 Diazepam (Valium) 2 mg TID PRN PO anxiety Last administered on 02/16/19 08:39; Admin Dose 2 MG; Start 02/11/19 at 13:00 ALLISON WOLFF Feb 16, 2019 15:02
[2019-02-16 20:10] VITALS: BP 128/65; PULSE 77; RESP 19
[2019-02-17 02:00] VITALS: BP 142/80; PULSE 71; RESP 18
[2019-02-17] MEDS: OXYCODONE/ACETAMINOPHEN (5/325) TAB PO PRN ×4 (02:41→21:54)
[2019-02-17] MEDS: DIAZEPAM 2 MG TAB PO PRN (06:24)
[2019-02-17 08:21] VITALS: BP 136/77; PULSE 65; RESP 16
[2019-02-17] MEDS: INSULIN ASPART [NOVOLOG] 3 ML PEN SC SCH ×4 (08:45→20:35)
[2019-02-17] MEDS: BACLOFEN 10 MG TAB PO SCH ×3 (09:08→20:39)
[2019-02-17] MEDS: CITALOPRAM 20 MG TAB PO SCH (09:08)
[2019-02-17] MEDS: COLLAGENASE 5 GM (UD JAR) TOP SCH (09:09)
[2019-02-17] MEDS: NYSTATIN 30 GM POWDER BTL TOP SCH ×2 (09:10→20:41)
[2019-02-17] MEDS: BALSAM PERU/CASTOR OIL 60 GM TUBE TOP SCH ×2 (09:11→20:41)
[2019-02-17] MEDS: DAKINS 0.0125%(1/40) 473 ML SOLUTION TP SCH (11:09)
[2019-02-17] MEDS: LORAZEPAM 0.5 MG TAB PO PRN ×2 (11:11→20:40)
[2019-02-17 13:30] VITALS: BP 117/69; PULSE 80; RESP 18
--- NOTE | 2019-02-17 14:42 | PN ---
Date/Time of Note Date/Time of Note DATE: 02/17/19 TIME: 14:39 Assessment/Plan Lines/Catheters IV Catheter Type (from Nrs): Saline Lock Valadez in Place (from Nrs): No Assessment/Plan Chief Complaint/Hosp Course 1. Multiple wounds: + Wound cultures -Continue local care> therapy changed yesterday -frequent turning and off-loading -low air loss mattress -vitamin c -short term zinc -optimize nutrition -abx per ID -Debridement as needed:> Patient currently refusing 2. Pneumoperitoneum with likely perforation of the bladder. Previously family did not consent to proceeding to surgery and she significantly improved with conservative treatments and extubated; CT cystogram noted without contrast leak. -Diet as tolerated -Pain management as needed -Per urology -DC okay from surgical standpoint. Will need urology follow-up 3. Hypochromic anemia: Status post PRBC transfusion, H&H stable -Monitor and transfuse as needed 4. UTI: -abx per sensitivity -frequent bladder emptying/cath care 5. Transaminitis: Likely 2/2 #5 -Trend 6. NSTEMI: -Cardiac optimization>per cards 7. Possible left knee effusion -Per medical team; consider Ortho consult 8. Anxiety: Currently on Ativan -Psych optimization Thank you. Patient seen and examined in collaboration with Dr. Osei Sanford. Subjective 24 Hr Interval Summary No acute events. Pending discharge placement. No fevers, chills, sob, congested cough, cp, palpitations, keita, dizziness, nausea, vomiting, diarrhea, dysuria. Exam/Review of Systems Vital Signs Vitals Vital Signs Date Temp Pulse Resp B/P (MAP) Pulse Ox O2 O2 Flow FiO2 Time Delivery Rate 02/17/19 98.6 80 18 117/69 97 Room Air 13:30 (85) Intake and Output 02/16/19 02/16/19 02/17/19 1515:00 23:00 07:00 IntakeIntake Total 960 ml 960 ml BalanceBalance 960 ml 960 ml Exam Free Text/Dictation Constitutional: NAD, well developed; Psych: anxiety moderate Head: normocephalic, atraumatic Eyes: nl conjunctiva, EOMI, nl lids, nl sclera ENMT: nl external ears & nose, no nl lips & teeth (poor dentition), mucosa pink and moist Neck: supple, non-tender; No jvd Respiratory: normal air movement; No congested cough, No labored breathing Cardiovascular: regular rate and rhythm, nl pulses; No edema Gastrointestinal: soft, non-distended, min tender, no rebound Genitourinary - Female: nl external genitalia Musculoskeletal: nl extremities to inspection, nl gait and stance Extremities: normal pulses Neurological: nl speech, no normal strength (generalized weakness) Skin: No rash or lesions, left hip wound: packed, scant drainage; sacral wound: Packed, minimal drainage, minimal slough Lymph: nl lymph nodes Results Result Diagram: 02/14/192014 MASSIMO WATKINS NP Feb 17, 2019 14:42
--- NOTE | 2019-02-17 14:53 | PN ---
Date/Time of Note Date/Time of Note DATE: 02/17/19 TIME: 14:53 Assessment/Plan VTE Prophylaxis Risk score (from Nsg)>0 risk: 3 Pharmacological prophylaxis: NA/contraindicated Pharm contraindication: low risk/ambulating Lines/Catheters IV Catheter Type (from Nrsg): Saline Lock Urinary Cath still in place: No Assessment/Plan Hospital Course 59 yo female with chronic debility and leg weakness who presented with sepsis, severe anemia, and perforated viscus Perforated viscus: - conservative management per surgery - resolved Hip OM: - s/p Abx course per ID Macrocytic anemia secondary to elevated reticulocyte count - Status post 4 units of packed red blood cells - stable Iron deficiency: - s/p IV iron Acute kidney injury secondary to severe septic shock - Renal function improved to baseline B/l LE weakness: - PT/OT Anxiety: - Valium TID PRN Prophylaxis: SCDs, Protonix Discharge planning; To SNF when accepted. Antibiotics are completed. Alternatively could return to previous living situation if family is willing to accept Result Diagram: 02/14/192014 Results 24hrs Laboratory Tests Test 02/16/19 17:06 02/16/19 21:58 02/17/19 08:26 02/17/19 12:23 Bedside Glucose 106 136 112 143 Subjective 24 Hr Interval Summary Constitutional: no complaints Exam/Review of Systems Exam Vitals Vital Signs Date Temp Pulse Resp B/P (MAP) Pulse Ox O2 O2 Flow FiO2 Time Delivery Rate 02/17/19 98.6 80 18 117/69 97 Room Air 13:30 (85) Intake and Output 02/16/19 02/16/19 02/17/19 1515:00 23:00 07:00 IntakeIntake Total 960 ml 960 ml BalanceBalance 960 ml 960 ml Constitutional: alert, oriented Respiratory: clear to auscultation Cardiovascular: regular rate and rhythm Gastrointestinal: soft; No distended Musculoskeletal: nl extremities to inspection Results Results 24hrs Laboratory Tests Test 02/16/19 17:06 02/16/19 21:58 02/17/19 08:26 02/17/19 12:23 Bedside Glucose 106 136 112 143 Medications Medication Current Medications Albuterol (Ventolin Hfa) 4 puff Q2H RESP THERAPY PRN INH SHORTNESS OF BREATH; Start 01/17/19 at 00:00 Ipratropium [place] (Atrovent Hfa) 4 puff Q2H RESP THERAPY PRN INH SHORTNESS OF BREATH; Start 01/17/19 at 00:00 Acetaminophen (Tylenol Liquid) 650 mg Q6H PRN PO PAIN LEVEL 1-3 OR FEVER; Start 01/17/19 at 00:00 Miscellaneous Information 1 ea NOTE XX ; Start 01/17/19 at 11:00 Glucose (Glutose) 15 gm Q15M PRN PO DECREASED GLUCOSE; Start 01/17/19 at 11:00 Glucose (Glutose) 22.5 gm Q15M PRN PO DECREASED GLUCOSE; Start 01/17/19 at 11:00 Dextrose (D50w Syringe) 25 ml Q15M PRN IV DECREASED GLUCOSE; Start 01/17/19 at 11:00 Dextrose (D50w Syringe) 50 ml Q15M PRN IV DECREASED GLUCOSE; Start 01/17/19 at 11:00 Glucagon (Glucagen) 1 mg Q15M PRN IM DECREASED GLUCOSE; Start 01/17/19 at 11:00 Glucose (Glutose) 15 gm Q15M PRN BUCCAL DECREASED GLUCOSE; Start 01/17/19 at 11 :00 Collagenase (Santyl) 1 applic DAILY TOP Last administered on 02/17/19at 09:09; Admin Dose 1 APPLIC; Start 01/17/19 at 17:00 Carvedilol (Coreg) 3.125 mg BID PO Last administered on 02/17/19 09:08; Admin Dose 3.125 MG; Start 01/21/19 at 09:00 Hydralazine HCl (Apresoline) 10 mg Q4H PRN IV SBP >170 Last administered on 02/05/19at 05:12; Admin Dose 10 MG; Start 01/21/19 at 14:30 Nystatin (Nystatin Powder) 1 applic BID TOP Last administered on 02/17/19at 09:10; Admin Dose 1 APPLIC; Start 01/27/19 at 21:00 Sodium Hypochlorite (Dakins Diluted ()) 1 applic DAILY TP Last administered on 02/17/19at 11:09; Admin Dose 1 APPLIC; Start 01/28/19 at 09:40 Citalopram Hydrobromide (Celexa) 10 mg DAILY PO Last administered on 02/17/19at 09:08; Admin Dose 10 MG; Start 01/30/19 at 09:00 Insulin Aspart (Novolog Insulin Pen) NOVOLOG *MILD* ALGORITHM WITH MEALS BEDTIME SC Last administered on 02/16/19 12:59; Admin Dose 1 UNIT; Start 01/30/19 at 08:00 Baclofen (Lioresal) 5 mg TID PO Last administered on 02/17/19 13:45; Admin Dose 5 MG; Start 02/01/19 at 21:00 Lorazepam (Ativan) 0.5 mg Q8H PRN PO ANXIETY Last administered on 02/17/19 11:11; Admin Dose 0.5 MG; Start 02/02/19 at 12:00 Oxycodone/ Acetaminophen (Percocet (5/ 325)) 1 tab Q6H PRN PO MODERATE PAIN LEVEL 4-6 Last administered on 02/17/19 09:07; Admin Dose 1 TAB; Start 02/07/19 at 14:30 Diazepam (Valium) 2 mg TID PRN PO anxiety Last administered on 02/17/19 06:24; Admin Dose 2 MG; Start 02/11/19 at 13:00 ALLISON WOLFF Feb 17, 2019 14:53
[2019-02-17 19:33] VITALS: BP 145/73; PULSE 77; RESP 20
[2019-02-18] MEDS: DIAZEPAM 2 MG TAB PO PRN ×2 (00:58→20:45)
[2019-02-18 01:54] VITALS: BP 112/66; PULSE 73; RESP 20
[2019-02-18] MEDS: OXYCODONE/ACETAMINOPHEN (5/325) TAB PO PRN ×3 (04:55→19:37)
[2019-02-18 07:56] VITALS: BP 115/66; PULSE 72; RESP 18
[2019-02-18] MEDS: INSULIN ASPART [NOVOLOG] 3 ML PEN SC SCH ×4 (08:00→20:17)
[2019-02-18] MEDS: LORAZEPAM 0.5 MG TAB PO PRN ×2 (08:21→17:05)
[2019-02-18] MEDS: BACLOFEN 10 MG TAB PO SCH ×3 (08:21→20:18)
[2019-02-18] MEDS: COLLAGENASE 5 GM (UD JAR) TOP SCH (08:23)
[2019-02-18] MEDS: CITALOPRAM 20 MG TAB PO SCH (08:23)
[2019-02-18] MEDS: BALSAM PERU/CASTOR OIL 60 GM TUBE TOP SCH ×2 (08:24→20:19)
[2019-02-18] MEDS: DAKINS 0.0125%(1/40) 473 ML SOLUTION TP SCH (08:24)
[2019-02-18] MEDS: NYSTATIN 30 GM POWDER BTL TOP SCH ×2 (09:00→20:18)
--- NOTE | 2019-02-18 11:26 | PN ---
Date/Time of Note Date/Time of Note DATE: 02/18/19 TIME: 11:25 Assessment/Plan Lines/Catheters IV Catheter Type (from Nrs): Saline Lock Valadez in Place (from Nrs): No Assessment/Plan Chief Complaint/Hosp Course 1. Multiple wounds: + Wound cultures -Continue local care> therapy changed yesterday -frequent turning and off-loading -low air loss mattress -vitamin c -short term zinc -optimize nutrition -abx per ID -Debridement as needed:> Patient currently refusing 2. Pneumoperitoneum with likely perforation of the bladder. Previously family did not consent to proceeding to surgery and she significantly improved with conservative treatments and extubated; CT cystogram noted without contrast leak. -Diet as tolerated -Pain management as needed -Per urology -DC okay from surgical standpoint. Will need urology follow-up 3. Hypochromic anemia: Status post PRBC transfusion, H&H stable -Monitor and transfuse as needed 4. UTI: -abx per sensitivity -frequent bladder emptying/cath care 5. Transaminitis: Likely 2/2 #5 -Trend 6. NSTEMI: -Cardiac optimization>per cards 7. Possible left knee effusion -Per medical team; consider Ortho consult 8. Anxiety: Currently on Ativan -Psych optimization Thank you. Patient seen and examined in collaboration with Dr. Osei Sanford. Subjective 24 Hr Interval Summary No fevers, chills, sob, congested cough, cp, palpitations, keita, dizziness, n/v/d/dysuria. Exam/Review of Systems Vital Signs Vitals Vital Signs Date Temp Pulse Resp B/P (MAP) Pulse Ox O2 O2 Flow FiO2 Time Delivery Rate 02/26/19 97.8 65 18 141/88 95 14:01 (105) 02/24/19 Room Air 13:33 Intake and Output 02/25/19 02/25/19 02/26/19 1515:00 23:00 07:00 IntakeIntake Total 680 ml 640 ml 400 ml BalanceBalance 680 ml 640 ml 400 ml Exam Free Text/Dictation Constitutional: NAD, well developed; Psych: anxiety moderate Head: normocephalic, atraumatic Eyes: nl conjunctiva, EOMI, nl lids, nl sclera ENMT: nl external ears & nose, no nl lips & teeth (poor dentition), mucosa pink and moist Neck: supple, non-tender; No jvd Respiratory: normal air movement; No congested cough, No labored breathing Cardiovascular: regular rate and rhythm, nl pulses; No edema Gastrointestinal: soft, non-distended, min tender, no rebound Genitourinary - Female: nl external genitalia Musculoskeletal: nl extremities to inspection, nl gait and stance Extremities: normal pulses Neurological: nl speech, no normal strength (generalized weakness) Skin: No rash or lesions, left hip wound: packed, scant drainage; sacral wound: Packed, minimal drainage, minimal slough Lymph: nl lymph nodes MASSIMO WATKINS NP Feb 18, 2019 11:26
--- NOTE | 2019-02-18 13:07 | PN ---
Date/Time of Note Date/Time of Note DATE: 02/18/19 TIME: 13:03 Assessment/Plan Lines/Catheters IV Catheter Type (from [facility]): Saline Lock Valadez in Place (from [facility]): No Assessment/Plan Chief Complaint/Hosp Course 1. Multiple wounds: + Wound cultures -Continue local care -frequent turning and off-loading -low air loss mattress -vitamin c -short term zinc -optimize nutrition -abx per ID -Debridement as needed:> Patient currently refusing 2. Pneumoperitoneum with likely perforation of the bladder. Previously family did not consent to proceeding to surgery and she significantly improved with conservative treatments and extubated; CT cystogram noted without contrast leak. -Diet as tolerated -DC okay from surgical standpoint. Will need urology follow-up 3. Hypochromic anemia: Status post PRBC transfusion, H&H stable -Monitor and transfuse as needed 4. UTI: -abx per sensitivity -frequent bladder emptying/cath care 5. Transaminitis: Likely 2/2 #5 -Trend 6. NSTEMI: -Cardiac optimization>per cards 7. Possible left knee effusion -Per medical team; consider Ortho consult 8. Anxiety: Currently on Ativan -Psych optimization Thank you. Patient seen and examined in collaboration with Dr. Osei Sanford. Subjective 24 Hr Interval Summary Refused OT. No fevers, chills, sob, congested cough, cp, palpitations, keita, dizziness, nausea, vomiting, diarrhea, dysuria. Exam/Review of Systems Vital Signs Vitals Vital Signs Date Temp Pulse Resp B/P (MAP) Pulse Ox O2 O2 Flow FiO2 Time Delivery Rate 02/18/19 98.0 72 18 115/66 96 Room Air 07:56 (82) Intake and Output 02/17/19 02/17/19 02/18/19 1515:00 23:00 07:00 IntakeIntake Total 820 ml 320 ml 400 ml BalanceBalance 820 ml 320 ml 400 ml Exam Free Text/Dictation Constitutional: NAD, well developed; Psych: Labile Head: normocephalic, atraumatic Eyes: nl conjunctiva, EOMI, nl lids, nl sclera ENMT: nl external ears & nose, no nl lips & teeth (poor dentition), mucosa pink and moist Neck: supple, non-tender; No jvd Respiratory: normal air movement; No congested cough, No labored breathing Cardiovascular: regular rate and rhythm, nl pulses; No edema Gastrointestinal: soft, non-distended, min tender, no rebound Genitourinary - Female: nl external genitalia Musculoskeletal: nl extremities to inspection, nl gait and stance Extremities: normal pulses Neurological: nl speech, no normal strength (generalized weakness) Skin: No rash or lesions, left hip wound: packed, scant drainage; sacral wound: Packed, minimal drainage, minimal slough Lymph: nl lymph nodes Results Result Diagram: 02/14/192014 MASSIMO WATKINS BEHAVIORAL HEALTH THERAPIST Feb 18, 2019 13:06
[2019-02-18 14:00] VITALS: BP 114/58; PULSE 74; RESP 18
--- NOTE | 2019-02-18 15:20 | PN ---
Date/Time of Note Date/Time of Note DATE: 02/18/19 TIME: 15:19 Assessment/Plan VTE Prophylaxis Risk score (from Nsg)>0 risk: 5 Pharmacological prophylaxis: NA/contraindicated Pharm contraindication: low risk/ambulating Lines/Catheters IV Catheter Type (from Nrsg): Saline Lock Urinary Cath still in place: No Assessment/Plan Hospital Course 59 yo female with chronic debility and leg weakness who presented with sepsis, severe anemia, and perforated viscus Perforated viscus: - conservative management per surgery - resolved Hip OM: - s/p Abx course per ID Macrocytic anemia secondary to elevated reticulocyte count - Status post 4 units of packed red blood cells - stable Iron deficiency: - s/p IV iron Acute kidney injury secondary to severe septic shock - Renal function improved to baseline B/l LE weakness: - PT/OT Anxiety: - Valium TID PRN Prophylaxis: SCDs, Protonix Discharge planning; To SNF when accepted. Antibiotics are completed. Alternatively could return to previous living situation if family is willing to accept Result Diagram: 02/14/192014 Results 24hrs Laboratory Tests Test 02/17/19 17:11 02/17/19 20:34 02/18/19 08:20 02/18/19 12:30 Bedside Glucose 107 120 122 206 Subjective 24 Hr Interval Summary Constitutional: no complaints Exam/Review of Systems Exam Vitals Vital Signs Date Temp Pulse Resp B/P (MAP) Pulse Ox O2 O2 Flow FiO2 Time Delivery Rate 02/18/19 97.9 74 18 114/58 97 Room Air 14:00 (76) Intake and Output 02/17/19 02/17/19 02/18/19 1515:00 23:00 07:00 IntakeIntake Total 820 ml 320 ml 400 ml BalanceBalance 820 ml 320 ml 400 ml Constitutional: alert, oriented Respiratory: clear to auscultation Cardiovascular: regular rate and rhythm Gastrointestinal: soft; No distended Musculoskeletal: nl extremities to inspection Results Results 24hrs Laboratory Tests Test 02/17/19 17:11 02/17/19 20:34 02/18/19 08:20 02/18/19 12:30 Bedside Glucose 107 120 122 206 Medications Medication Current Medications Ipratropium [place] (Atrovent Hfa) 4 puff Q2H RESP THERAPY PRN INH SHORTNESS OF BREATH; Start 01/17/19 at 00:00 Acetaminophen (Tylenol Liquid) 650 mg Q6H PRN PO PAIN LEVEL 1-3 OR FEVER; Start 01/17/19 at 00:00 Miscellaneous Information 1 ea NOTE XX ; Start 01/17/19 at 11:00 Glucose (Glutose) 15 gm Q15M PRN PO DECREASED GLUCOSE; Start 01/17/19 at 11:00 Glucose (Glutose) 22.5 gm Q15M PRN PO DECREASED GLUCOSE; Start 01/17/19 at 11:00 Dextrose (D50w Syringe) 25 ml Q15M PRN IV DECREASED GLUCOSE; Start 01/17/19 at 11:00 Dextrose (D50w Syringe) 50 ml Q15M PRN IV DECREASED GLUCOSE; Start 01/17/19 at 11:00 Glucagon (Glucagen) 1 mg Q15M PRN IM DECREASED GLUCOSE; Start 01/17/19 at 11:00 Glucose (Glutose) 15 gm Q15M PRN BUCCAL DECREASED GLUCOSE; Start 01/17/19 at 11:00 Collagenase (Santyl) 1 applic DAILY TOP Last administered on 02/18/19 08:23; Admin Dose 1 APPLIC; Start 01/17/19 at 17:00 Carvedilol (Coreg) 3.125 mg BID PO Last administered on 02/18/19 08:22; Admin Dose 3.125 MG; Start 01/21/19 at 09:00 Hydralazine HCl (Apresoline) 10 mg Q4H PRN IV SBP >170 Last administered on 02/05/19 05:12; Admin Dose 10 MG; Start 01/21/19 at 14:30 Nystatin (Nystatin Powder) 1 applic BID TOP Last administered on 02/17/19at 20:41; Admin Dose 1 APPLIC; Start 01/27/19 at 21:00 Sodium Hypochlorite (Dakins Diluted ()) 1 applic DAILY TP Last administered on 02/18/19 08:24; Admin Dose 1 APPLIC; Start 01/28/19 at 09:40 Citalopram Hydrobromide (Celexa) 10 mg DAILY PO Last administered on 02/18/19 08:23; Admin Dose 10 MG; Start 01/30/19 at 09:00 Insulin Aspart (Novolog Insulin Pen) NOVOLOG *MILD* ALGORITHM WITH MEALS BEDTIME SC Last administered on 02/18/19 12:41; Admin Dose 2 UNIT; Start 01/30/19 at 08:00 Baclofen (Lioresal) 5 mg TID PO Last administered on 02/18/19 12:40; Admin Dose 5 MG; Start 02/01/19 at 21:00 Lorazepam (Ativan) 0.5 mg Q8H PRN PO ANXIETY Last administered on 02/18/19 08:21; Admin Dose 0.5 MG; Start 02/02/19 at 12:00 Oxycodone/ Acetaminophen (Percocet (5/ 325)) 1 tab Q6H PRN PO MODERATE PAIN LEVEL 4-6 Last administered on 02/18/19 12:40; Admin Dose 1 TAB; Start 02/07/19 at 14:30 Diazepam (Valium) 2 mg TID PRN PO anxiety Last administered on 02/18/19 00:58; Admin Dose 2 MG; Start 02/11/19 at 13:00 ALLISON WOLFF Feb 18, 2019 15:20
[2019-02-18 19:38] VITALS: BP 121/69; PULSE 78; RESP 20
[2019-02-19] MEDS: LORAZEPAM 0.5 MG TAB PO PRN ×3 (01:11→20:09)
[2019-02-19 01:26] VITALS: BP 146/79; PULSE 76; RESP 20
[2019-02-19] MEDS: OXYCODONE/ACETAMINOPHEN (5/325) TAB PO PRN ×3 (06:45→21:11)
[2019-02-19 07:57] VITALS: BP 150/84; PULSE 64; RESP 18
[2019-02-19] MEDS: CITALOPRAM 20 MG TAB PO SCH (08:27)
[2019-02-19] MEDS: BACLOFEN 10 MG TAB PO SCH ×3 (08:28→20:07)
[2019-02-19] MEDS: COLLAGENASE 5 GM (UD JAR) TOP SCH (08:31)
[2019-02-19] MEDS: NYSTATIN 30 GM POWDER BTL TOP SCH ×2 (08:31→20:08)
[2019-02-19] MEDS: DAKINS 0.0125%(1/40) 473 ML SOLUTION TP SCH (08:32)
[2019-02-19] MEDS: BALSAM PERU/CASTOR OIL 60 GM TUBE TOP SCH ×2 (08:32→20:09)
[2019-02-19] MEDS: INSULIN ASPART [NOVOLOG] 3 ML PEN SC SCH ×4 (08:35→20:10)
--- NOTE | 2019-02-19 11:24 | PN ---
Date/Time of Note Date/Time of Note DATE: 02/19/19 TIME: 11:24 Assessment/Plan VTE Prophylaxis Risk score (from Nsg)>0 risk: 5 Pharmacological prophylaxis: NA/contraindicated Pharm contraindication: low risk/ambulating Lines/Catheters IV Catheter Type (from Nrsg): Peripheral IV Urinary Cath still in place: No Assessment/Plan Hospital Course 59 yo female with chronic debility and leg weakness who presented with sepsis, severe anemia, and perforated viscus Perforated viscus: - conservative management per surgery - resolved Hip OM: - s/p Abx course per ID Macrocytic anemia secondary to elevated reticulocyte count - Status post 4 units of packed red blood cells - stable Iron deficiency: - s/p IV iron Acute kidney injury secondary to severe septic shock - Renal function improved to baseline B/l LE weakness: - PT/OT Anxiety: - Valium TID PRN Prophylaxis: SCDs, Protonix Discharge planning; To SNF when accepted. Antibiotics are completed. Alternatively could return to previous living situation if family is willing to accept Subjective 24 Hr Interval Summary Constitutional: no complaints Exam/Review of Systems Exam Vitals Vital Signs Date Temp Pulse Resp B/P (MAP) Pulse Ox O2 O2 Flow FiO2 Time Delivery Rate 02/19/19 98.0 64 18 150/84 98 07:57 (106) 02/18/19 Room Air 14:00 Intake and Output 02/18/19 02/18/19 02/19/19 1515:00 23:00 07:00 IntakeIntake Total 680 ml BalanceBalance 680 ml Constitutional: alert, oriented Respiratory: clear to auscultation Cardiovascular: regular rate and rhythm Gastrointestinal: soft; No distended Musculoskeletal: nl extremities to inspection Results Results 24hrs Laboratory Tests Test 02/18/19 12:30 02/18/19 17:10 02/18/19 20:16 02/19/19 08:25 Bedside Glucose 206 121 163 141 Medications Medication Current Medications Ipratropium [place] (Atrovent Hfa) 4 puff Q2H RESP THERAPY PRN INH SHORTNESS OF BREATH; Start 01/17/19 at 00:00 Acetaminophen (Tylenol Liquid) 650 mg Q6H PRN PO PAIN LEVEL 1-3 OR FEVER; Start 01/17/19 at 00:00 Miscellaneous Information 1 ea NOTE XX ; Start 01/17/19 at 11:00 Glucose (Glutose) 15 gm Q15M PRN PO DECREASED GLUCOSE; Start 01/17/19 at 11:00 Glucose (Glutose) 22.5 gm Q15M PRN PO DECREASED GLUCOSE; Start 01/17/19 at 11:00 Dextrose (D50w Syringe) 25 ml Q15M PRN IV DECREASED GLUCOSE; Start 01/17/19 at 11:00 Dextrose (D50w Syringe) 50 ml Q15M PRN IV DECREASED GLUCOSE; Start 01/17/19 at 11:00 Glucagon (Glucagen) 1 mg Q15M PRN IM DECREASED GLUCOSE; Start 01/17/19 at 11:00 Glucose (Glutose) 15 gm Q15M PRN BUCCAL DECREASED GLUCOSE; Start 01/17/19 at 11:00 Collagenase (Santyl) 1 applic DAILY TOP Last administered on 02/19/19 08:31; Admin Dose 1 APPLIC; Start 01/17/19 at 17:00 Carvedilol (Coreg) 3.125 mg BID PO Last administered on 02/19/19 08:27; Admin Dose 3.125 MG; Start 01/21/19 at 09:00 Nystatin (Nystatin Powder) 1 applic BID TOP Last administered on 02/19/19 08:31; Admin Dose 1 APPLIC; Start 01/27/19 at 21:00 Sodium Hypochlorite (Dakins Diluted ()) 1 applic DAILY TP Last administered on 02/19/19 08:32; Admin Dose 1 APPLIC; Start 01/28/19 at 09:40 Citalopram Hydrobromide (Celexa) 10 mg DAILY PO Last administered on 02/19/19 08:27; Admin Dose 10 MG; Start 01/30/19 at 09:00 Insulin Aspart (Novolog Insulin Pen) NOVOLOG *MILD* ALGORITHM WITH MEALS BEDTIME SC Last administered on 02/19/19 08:35; Admin Dose 1 UNIT; Start 01/30/19 at 08:00 Baclofen (Lioresal) 5 mg TID PO Last administered on 02/19/19 08:28; Admin Dose 5 MG; Start 02/01/19 at 21:00 Lorazepam (Ativan) 0.5 mg Q8H PRN PO ANXIETY Last administered on 02/19/19 10:55; Admin Dose 0.5 MG; Start 02/02/19 at 12:00 Oxycodone/ Acetaminophen (Percocet (5/ 325)) 1 tab Q6H PRN PO MODERATE PAIN LEVEL 4-6 Last administered on 02/19/19at 06:45; Admin Dose 1 TAB; Start 02/07/19 at 14:30 Diazepam (Valium) 2 mg TID PRN PO anxiety Last administered on 02/18/19at 20:45; Admin Dose 2 MG; Start 02/11/19 at 13:00 Clonidine (Catapres) 0.1 mg Q8H PRN PO SBP>170; Start 02/19/19 at 11:30 ALLISON WOLFF Feb 19, 2019 11:24
[2019-02-19] MEDS: DIAZEPAM 2 MG TAB PO PRN (12:28)
[2019-02-19 14:49] VITALS: BP 127/74; PULSE 78; RESP 18
--- NOTE | 2019-02-19 18:56 | CONS ---
Assessment/Plan Assessment/Plan Assessment/Plan (Daily) #Anemia- Hgb 9.3 -patient's initial Hg of 2.6 was likely secondary to GIB and perforated viscous. Stool ob at that time was negative. -anemia panel is consistent with iron deficiency -s/p Ferrlecit 125 mg IV x 5 days completed 01/30. Hg stable > 9 #Sepsis -2/2 UTI and wound infection -continue antibiotics. pt on zosyn #Perforated viscous -continue conservative management per surgery -pt is now stable #JACKIE -renal following -Creatine came down to 1.16 Patient seen in collaboration with Dr Dumont. Consultation Date/Type/Reason Admit Date/Time Jan 16, 2019 at 23:33 Initial Consult Date 01/25/19 Type of Consult Hematology/oncology Reason for Consultation aNEMIA Requesting Provider: SONAL ALBERT MD Date/Time of Note DATE: 02/19/19 TIME: 18:55 24 HR Interval Summary Free Text/Dictation Feels better no new events reported last night dw staff Constitutional: improved Detailed Summary ENT: no complaints Respiratory: no complaints Cardiovascular: no complaints Gastrointestinal: no complaints Genitourinary: no complaints Musculoskeletal: bone/joint pain, restricted range of motion Skin: no complaints Neurologic: no complaints Lymphatic: no complaints Psychological: no complaints Immunologic: no complaints Exam/Review of Systems Exam Vitals Vital Signs Date Temp Pulse Resp B/P (MAP) Pulse Ox O2 O2 Flow FiO2 Time Delivery Rate 02/19/19 98.3 78 18 127/74 97 14:49 (91) 02/18/19 Room Air 14:00 Intake and Output 02/18/19 02/18/19 02/19/19 1515:00 23:00 07:00 IntakeIntake Total 680 ml BalanceBalance 680 ml Constitutional: alert, well developed Psych: nl mood/affect Eyes: nl lids, nl sclera ENMT: nl external ears & nose Neck: non-tender Respiratory: clear to auscultation Cardiovascular: nl pulses Gastrointestinal: soft, non-tender Musculoskeletal: muscle weakness Extremities: normal pulses Neurological: nl speech Results Results 24hrs Laboratory Tests Test 02/18/19 20:16 02/19/19 08:25 02/19/19 12:32 02/19/19 17:17 Bedside Glucose 163 141 230 H 158 Medications Medication Current Medications Ipratropium [place] (Atrovent Hfa) 4 puff Q2H RESP THERAPY PRN INH SHORTNESS OF BREATH; Start 01/17/19 at 00:00 Acetaminophen (Tylenol Liquid) 650 mg Q6H PRN PO PAIN LEVEL 1-3 OR FEVER; Start 01/17/19 at 00:00 Miscellaneous Information 1 ea NOTE XX ; Start 01/17/19 at 11:00 Glucose (Glutose) 15 gm Q15M PRN PO DECREASED GLUCOSE; Start 01/17/19 at 11:00 Glucose (Glutose) 22.5 gm Q15M PRN PO DECREASED GLUCOSE; Start 01/17/19 at 11:00 Dextrose (D50w Syringe) 25 ml Q15M PRN IV DECREASED GLUCOSE; Start 01/17/19 at 11:00 Dextrose (D50w Syringe) 50 ml Q15M PRN IV DECREASED GLUCOSE; Start 01/17/19 at 11:00 Glucagon (Glucagen) 1 mg Q15M PRN IM DECREASED GLUCOSE; Start 01/17/19 at 11:00 Glucose (Glutose) 15 gm Q15M PRN BUCCAL DECREASED GLUCOSE; Start 01/17/19 at 11:00 Collagenase (Santyl) 1 applic DAILY TOP Last administered on 02/19/19at 08:31; Admin Dose 1 APPLIC; Start 01/17/19 at 17:00 Carvedilol (Coreg) 3.125 mg BID PO Last administered on 02/19/19 08:27; Admin Dose 3.125 MG; Start 01/21/19 at 09:00 Nystatin (Nystatin Powder) 1 applic BID TOP Last administered on 02/19/19at 08:31; Admin Dose 1 APPLIC; Start 01/27/19 at 21:00 Sodium Hypochlorite (Dakins Diluted ()) 1 applic DAILY TP Last administered on 02/19/19at 08:32; Admin Dose 1 APPLIC; Start 01/28/19 at 09:40 Citalopram Hydrobromide (Celexa) 10 mg DAILY PO Last administered on 02/19/19at 08:27; Admin Dose 10 MG; Start 01/30/19 at 09:00 Insulin Aspart (Novolog Insulin Pen) NOVOLOG *MILD* ALGORITHM WITH MEALS BEDTIME SC Last administered on 02/19/19at 17:19; Admin Dose 1 UNIT; Start 01/30/19 at 08:00 Baclofen (Lioresal) 5 mg TID PO Last administered on 02/19/19 12:28; Admin Dose 5 MG; Start 02/01/19 at 21:00 Lorazepam (Ativan) 0.5 mg Q8H PRN PO ANXIETY Last administered on 02/19/19 10:55; Admin Dose 0.5 MG; Start 02/02/19 at 12:00 Oxycodone/ Acetaminophen (Percocet (5/ 325)) 1 tab Q6H PRN PO MODERATE PAIN LEVEL 4-6 Last administered on 02/19/19at 14:58; Admin Dose 1 TAB; Start 02/07/19 at 14:30 Diazepam (Valium) 2 mg TID PRN PO anxiety Last administered on 02/19/19 12:28; Admin Dose 2 MG; Start 02/11/19 at 13:00 Clonidine (Catapres) 0.1 mg Q8H PRN PO SBP>170; Start 02/19/19 at 11:30 SHELBIE MARTINES Feb 19, 2019 18:56
[2019-02-19 20:05] VITALS: BP 137/76; PULSE 68; RESP 18
--- NOTE | 2019-02-20 01:25 | PN ---
Date/Time of Note Date/Time of Note DATE: 02/19/19 TIME: 23:20 Assessment/Plan Lines/Catheters IV Catheter Type (from [facility]): Peripheral IV Valadez in Place (from [facility]): No Assessment/Plan Chief Complaint/Hosp Course 1. Multiple wounds: + Wound cultures -Continue local care -frequent turning and off-loading -low air loss mattress -vitamin c -short term zinc -optimize nutrition -abx per ID -Debridement as needed > Patient currently refusing 2. Pneumoperitoneum with likely perforation of the bladder. Previously family did not consent to proceeding to surgery and she significantly improved with conservative treatments and extubated; CT cystogram noted without contrast leak. -Diet as tolerated -DC okay from surgical standpoint. Will need urology follow-up 3. Hypochromic anemia: Status post PRBC transfusion, H&H stable -Monitor and transfuse as needed 4. UTI: -abx per sensitivity -frequent bladder emptying/cath care 5. Transaminitis: Likely 2/2 #5 -Trend 6. NSTEMI: -Cardiac optimization>per cards 7. Possible left knee effusion -Per medical team; consider Ortho consult 8. Anxiety: Currently on Ativan -Psych optimization Thank you, Late entry 02/19 Subjective 24 Hr Interval Summary No fevers, chills, sob, congested cough, cp, palpitations, keita, dizziness, nausea, vomiting, diarrhea, dysuria. Exam/Review of Systems Vital Signs Vitals Vital Signs Date Temp Pulse Resp B/P (MAP) Pulse Ox O2 O2 Flow FiO2 Time Delivery Rate 02/19/19 98.3 68 18 137/76 96 Room Air 20:05 (96) Intake and Output 02/19/19 02/19/19 02/20/19 1515:00 23:00 07:00 IntakeIntake Total 720 ml 980 ml BalanceBalance 720 ml 980 ml Exam Free Text/Dictation Constitutional: NAD, well developed; Psych: Labile Head: normocephalic, atraumatic Eyes: nl conjunctiva, EOMI, nl lids, nl sclera ENMT: nl external ears & nose, no nl lips & teeth (poor dentition), mucosa pink and moist Neck: supple, non-tender; No jvd Respiratory: normal air movement; No congested cough, No labored breathing Cardiovascular: regular rate and rhythm, nl pulses; No edema Gastrointestinal: soft, non-distended, min tender, no rebound Genitourinary - Female: nl external genitalia Musculoskeletal: nl extremities to inspection, nl gait and stance Extremities: normal pulses Neurological: nl speech, no normal strength (generalized weakness) Skin: No rash or lesions, left hip wound: packed, scant drainage; sacral wound: Packed, minimal drainage, minimal slough Lymph: nl lymph nodes ALEK HANDLEY MD Feb 20, 2019 01:25
[2019-02-20 02:00] VITALS: BP 131/73; PULSE 81; RESP 18
[2019-02-20] MEDS: LORAZEPAM 0.5 MG TAB PO PRN ×3 (05:28→19:33)
[2019-02-20] MEDS: BACLOFEN 10 MG TAB PO SCH ×3 (08:18→21:18)
[2019-02-20] MEDS: CITALOPRAM 20 MG TAB PO SCH (08:18)
[2019-02-20] MEDS: OXYCODONE/ACETAMINOPHEN (5/325) TAB PO PRN ×2 (08:20→15:55)
[2019-02-20] MEDS: DAKINS 0.0125%(1/40) 473 ML SOLUTION TP SCH (08:20)
[2019-02-20] MEDS: COLLAGENASE 5 GM (UD JAR) TOP SCH (08:21)
[2019-02-20] MEDS: NYSTATIN 30 GM POWDER BTL TOP SCH ×2 (08:21→21:17)
[2019-02-20] MEDS: BALSAM PERU/CASTOR OIL 60 GM TUBE TOP SCH ×2 (08:21→21:17)
[2019-02-20] MEDS: INSULIN ASPART [NOVOLOG] 3 ML PEN SC SCH ×4 (08:26→21:00)
[2019-02-20 08:53] VITALS: BP 132/78; PULSE 72; RESP 16
--- NOTE | 2019-02-20 12:10 | PN ---
Date/Time of Note Date/Time of Note DATE: 02/20/19 TIME: 12:09 Assessment/Plan VTE Prophylaxis Risk score (from Nsg)>0 risk: 5 Pharmacological prophylaxis: NA/contraindicated Pharm contraindication: other Lines/Catheters IV Catheter Type (from [facility]): Peripheral IV Urinary Cath still in place: No Assessment/Plan Hospital Course 59 yo female with chronic debility and leg weakness who presented with sepsis, severe anemia, and perforated viscus Perforated viscus: - conservative management per surgery - resolved Hip OM: - s/p Abx course per ID Macrocytic anemia secondary to elevated reticulocyte count - Status post 4 units of packed red blood cells - stable Iron deficiency: - s/p IV iron Acute kidney injury secondary to severe septic shock - Renal function improved to baseline B/l LE weakness: - PT/OT Anxiety: - Valium TID PRN Prophylaxis: SCDs, Protonix Discharge planning; To SNF when accepted. Antibiotics are completed. Alternatively could return to previous living situation if family is willing to accept Result Diagram: 02/20/19 0811 02/20/19 0811 Results 24hrs Laboratory Tests Test 02/19/19 12:32 02/19/19 17:17 02/19/19 19:59 02/20/19 08:11 Bedside Glucose 230 H 158 153 White Blood Count 5.7 Red Blood Count 3.26 L Hemoglobin 9.6 L Hematocrit 29.8 L Mean Corpuscular 91.4 Volume Mean Corpuscular 29.4 Hemoglobin Mean Corpuscular 32.2 Hemoglobin Concent Red Cell 15.8 H Distribution Width Platelet Count 211 Mean Platelet Volume 10.2 Immature 0.700 H Granulocytes % Neutrophils % 59.3 Lymphocytes % 28.3 Monocytes % 8.0 Eosinophils % 3.0 Basophils % 0.7 Nucleated Red Blood 0.0 Cells % Immature 0.040 H Granulocytes # Neutrophils # 3.4 Lymphocytes # 1.6 Monocytes # 0.5 Eosinophils # 0.2 Basophils # 0.0 Nucleated Red Blood 0.0 Cells # Sodium Level 140 Potassium Level 4.2 Chloride Level 108 Carbon Dioxide Level 22 Anion Gap 10 Blood Urea Nitrogen 42 H Creatinine 0.95 Est Glomerular > 60 Filtrat Rate mL/min Glucose Level 122 Calcium Level 10.3 H Test 02/20/19 08:17 Bedside Glucose 142 Subjective 24 Hr Interval Summary Constitutional: no complaints Exam/Review of Systems Exam Vitals Vital Signs Date Temp Pulse Resp B/P (MAP) Pulse Ox O2 O2 Flow FiO2 Time Delivery Rate 02/20/19 98.1 72 16 132/78 95 Room Air 08:53 (96) Intake and Output 02/19/19 02/19/19 02/20/19 1515:00 23:00 07:00 IntakeIntake Total 720 ml 980 ml BalanceBalance 720 ml 980 ml Constitutional: alert, oriented Respiratory: clear to auscultation Cardiovascular: regular rate and rhythm Gastrointestinal: soft; No distended Musculoskeletal: nl extremities to inspection Results Results 24hrs Laboratory Tests Test 02/19/19 12:32 02/19/19 17:17 02/19/19 19:59 02/20/19 08:11 Bedside Glucose 230 H 158 153 White Blood Count 5.7 Red Blood Count 3.26 L Hemoglobin 9.6 L Hematocrit 29.8 L Mean Corpuscular 91.4 Volume Mean Corpuscular 29.4 Hemoglobin Mean Corpuscular 32.2 Hemoglobin Concent Red Cell 15.8 H Distribution Width Platelet Count 211 Mean Platelet Volume 10.2 Immature 0.700 H Granulocytes % Neutrophils % 59.3 Lymphocytes % 28.3 Monocytes % 8.0 Eosinophils % 3.0 Basophils % 0.7 Nucleated Red Blood 0.0 Cells % Immature 0.040 H Granulocytes # Neutrophils # 3.4 Lymphocytes # 1.6 Monocytes # 0.5 Eosinophils # 0.2 Basophils # 0.0 Nucleated Red Blood 0.0 Cells # Sodium Level 140 Potassium Level 4.2 Chloride Level 108 Carbon Dioxide Level 22 Anion Gap 10 Blood Urea Nitrogen 42 H Creatinine 0.95 Est Glomerular > 60 Filtrat Rate mL/min Glucose Level 122 Calcium Level 10.3 H Test 02/20/19 08:17 Bedside Glucose 142 Medications Medication Current Medications Ipratropium [place] (Atrovent Hfa) 4 puff Q2H RESP THERAPY PRN INH SHORTNESS OF BREATH; Start 01/17/19 at 00:00 Acetaminophen (Tylenol Liquid) 650 mg Q6H PRN PO PAIN LEVEL 1-3 OR FEVER; Start 01/17/19 at 00:00 Miscellaneous Information 1 ea NOTE XX ; Start 01/17/19 at 11:00 Glucose (Glutose) 15 gm Q15M PRN PO DECREASED GLUCOSE; Start 01/17/19 at 11:00 Glucose (Glutose) 22.5 gm Q15M PRN PO DECREASED GLUCOSE; Start 01/17/19 at 11:00 Dextrose (D50w Syringe) 25 ml Q15M PRN IV DECREASED GLUCOSE; Start 01/17/19 at 11:00 Dextrose (D50w Syringe) 50 ml Q15M PRN IV DECREASED GLUCOSE; Start 01/17/19 at 11:00 Glucagon (Glucagen) 1 mg Q15M PRN IM DECREASED GLUCOSE; Start 01/17/19 at 11:00 Glucose (Glutose) 15 gm Q15M PRN BUCCAL DECREASED GLUCOSE; Start 01/17/19 at 11:00 Collagenase (Santyl) 1 applic DAILY TOP Last administered on 02/20/19 08:21; Admin Dose 1 APPLIC; Start 01/17/19 at 17:00 Carvedilol (Coreg) 3.125 mg BID PO Last administered on 02/20/19 08:19; Admin Dose 3.125 MG; Start 01/21/19 at 09:00 Nystatin (Nystatin Powder) 1 applic BID TOP Last administered on 02/20/19 08:21; Admin Dose 1 APPLIC; Start 01/27/19 at 21:00 Sodium Hypochlorite (Dakins Diluted ()) 1 applic DAILY TP Last administered on 02/20/19 08:20; Admin Dose 1 APPLIC; Start 01/28/19 at 09:40 Citalopram Hydrobromide (Celexa) 10 mg DAILY PO Last administered on 02/20/19 08:18; Admin Dose 10 MG; Start 01/30/19 at 09:00 Insulin Aspart (Novolog Insulin Pen) NOVOLOG *MILD* ALGORITHM WITH MEALS BEDTIME SC Last administered on 02/20/19 08:26; Admin Dose 1 UNIT; Start 01/30/19 at 08:00 Baclofen (Lioresal) 5 mg TID PO Last administered on 02/20/19 08:18; Admin Dose 5 MG; Start 02/01/19 at 21:00 Lorazepam (Ativan) 0.5 mg Q8H PRN PO ANXIETY Last administered on 02/20/19 11:31; Admin Dose 0.5 MG; Start 02/02/19 at 12:00 Oxycodone/ Acetaminophen (Percocet (5/ 325)) 1 tab Q6H PRN PO MODERATE PAIN LEVEL 4-6 Last administered on 02/20/19at 08:20; Admin Dose 1 TAB; Start 02/07/19 at 14:30 Diazepam (Valium) 2 mg TID PRN PO anxiety Last administered on 02/19/19at 12:28; Admin Dose 2 MG; Start 02/11/19 at 13:00 Clonidine (Catapres) 0.1 mg Q8H PRN PO SBP>170; Start 02/19/19 at 11:30 Miscellaneous Information (*Order Clarification Bulletin) MEDICATION REQUIRES CLARIFICATION:PLE... Q8H XX ; Start 02/20/19 at 09:30 ALLISON WOLFF Feb 20, 2019 12:10
[2019-02-20] MEDS: DIAZEPAM 2 MG TAB PO PRN (15:55)
[2019-02-20 19:56] VITALS: BP 129/76; PULSE 80; RESP 20
--- NOTE | 2019-02-21 01:15 | PN ---
Date/Time of Note Date/Time of Note DATE: 01/2819 TIME: 23:14 Assessment/Plan Lines/Catheters IV Catheter Type (from [facility]): Peripheral IV Valadez in Place (from [facility]): No Assessment/Plan Chief Complaint/Hosp Course 1. Multiple wounds: + Wound cultures -Continue local care -frequent turning and off-loading -low air loss mattress -vitamin c -short term zinc -optimize nutrition -abx per ID -Debridement as needed > Patient currently refusing 2. Pneumoperitoneum with likely perforation of the bladder. Previously family did not consent to proceeding to surgery and she significantly improved with conservative treatments and extubated; CT cystogram noted without contrast leak. -Diet as tolerated -DC okay from surgical standpoint. Will need urology follow-up 3. Hypochromic anemia: Status post PRBC transfusion, H&H stable -Monitor and transfuse as needed 4. UTI: -abx per sensitivity -frequent bladder emptying/cath care 5. Transaminitis: Likely 2/2 #5 -Trend 6. NSTEMI: -Cardiac optimization>defer to cards 7. Possible left knee effusion -Per medical team; consider Ortho consult 8. Anxiety: Currently on Ativan -Psych optimization Thank you, Late entry 02/20 Subjective 24 Hr Interval Summary No fevers, chills, sob, congested cough, cp, palpitations, keita, dizziness, nausea, vomiting, diarrhea, dysuria. Exam/Review of Systems Vital Signs Vitals Vital Signs Date Temp Pulse Resp B/P (MAP) Pulse Ox O2 O2 Flow FiO2 Time Delivery Rate 02/20/19 98.4 80 20 129/76 95 19:56 (93) 02/20/19 Room Air 08:53 Intake and Output 02/20/19 02/20/19 02/21/19 1414:59 22:59 06:59 IntakeIntake Total 840 ml 360 ml BalanceBalance 840 ml 360 ml Exam Free Text/Dictation Constitutional: NAD, well developed; Psych: Labile Head: normocephalic, atraumatic Eyes: nl conjunctiva, EOMI, nl lids, nl sclera ENMT: nl external ears & nose, no nl lips & teeth (poor dentition), mucosa pink and moist Neck: supple, non-tender; No jvd Respiratory: normal air movement; No congested cough, No labored breathing Cardiovascular: regular rate and rhythm, nl pulses; No edema Gastrointestinal: soft, non-distended, min tender, no rebound Genitourinary - Female: nl external genitalia Musculoskeletal: nl extremities to inspection, nl gait and stance Extremities: normal pulses Neurological: nl speech, no normal strength (generalized weakness) Skin: No rash or lesions, left hip wound: packed, scant drainage; sacral wound: Packed, minimal drainage, minimal slough Lymph: nl lymph nodes Results Result Diagram: 02/20/19 0811 02/20/19 0811 ALEK HANDLEY MD Feb 21, 2019 01:15
[2019-02-21 01:39] VITALS: BP 144/76; PULSE 63; RESP 20
[2019-02-21] MEDS: LORAZEPAM 0.5 MG TAB PO PRN ×3 (03:34→20:59)
[2019-02-21] MEDS: OXYCODONE/ACETAMINOPHEN (5/325) TAB PO PRN ×3 (07:19→23:08)
[2019-02-21] MEDS: DIAZEPAM 2 MG TAB PO PRN ×2 (07:19→16:12)
[2019-02-21 07:28] VITALS: BP 133/85; PULSE 66; RESP 15
[2019-02-21] MEDS: CITALOPRAM 20 MG TAB PO SCH (08:57)
[2019-02-21] MEDS: NYSTATIN 30 GM POWDER BTL TOP SCH ×2 (08:57→21:03)
[2019-02-21] MEDS: BACLOFEN 10 MG TAB PO SCH ×3 (08:57→21:00)
[2019-02-21] MEDS: BALSAM PERU/CASTOR OIL 60 GM TUBE TOP SCH ×2 (08:57→21:03)
[2019-02-21] MEDS: COLLAGENASE 5 GM (UD JAR) TOP SCH (08:57)
[2019-02-21] MEDS: DAKINS 0.0125%(1/40) 473 ML SOLUTION TP SCH (08:58)
[2019-02-21] MEDS: INSULIN ASPART [NOVOLOG] 3 ML PEN SC SCH ×4 (09:01→21:00)
--- NOTE | 2019-02-21 11:20 | PN ---
Date/Time of Note Date/Time of Note DATE: 02/21/19 TIME: 11:16 Assessment/Plan Lines/Catheters IV Catheter Type (from [facility]): Peripheral IV Valadez in Place (from [facility]): No Assessment/Plan Chief Complaint/Hosp Course 1. Multiple wounds: + Wound cultures -Continue local care -frequent turning and off-loading -low air loss mattress -vitamin c -short term zinc -optimize nutrition -abx per ID -Debridement as needed > Patient has been refusing 2. Pneumoperitoneum with likely perforation of the bladder. Previously family did not consent to proceeding to surgery and she significantly improved with conservative treatments and extubated; CT cystogram noted without contrast leak. -Diet as tolerated -DC okay from surgical standpoint. Will need urology follow-up 3. Hypochromic anemia: Status post PRBC transfusion, H&H stable -Monitor and transfuse as needed 4. UTI: -abx per sensitivity -frequent bladder emptying/cath care 5. Transaminitis: Likely 2/2 #5 -Trend 6. NSTEMI: -Cardiac optimization>defer to cards 7. Possible left knee effusion -Per medical team; consider Ortho consult 8. Anxiety: Currently on Ativan -Psych optimization Thank you, Subjective 24 Hr Interval Summary Working with PT. No fevers, chills, sob, congested cough, cp, palpitations, keita, dizziness, nausea, vomiting, diarrhea, dysuria. Exam/Review of Systems Vital Signs Vitals Vital Signs Date Temp Pulse Resp B/P (MAP) Pulse Ox O2 O2 Flow FiO2 Time Delivery Rate 02/21/19 98.0 66 15 133/85 98 Room Air 07:28 (101) Intake and Output 02/20/19 02/20/19 02/21/19 1515:00 23:00 07:00 IntakeIntake Total 840 ml 360 ml BalanceBalance 840 ml 360 ml Exam Free Text/Dictation Constitutional: NAD, well developed; Psych: Labile Head: normocephalic, atraumatic Eyes: nl conjunctiva, EOMI, nl lids, nl sclera ENMT: nl external ears & nose, no nl lips & teeth (poor dentition), mucosa pink and moist Neck: supple, non-tender; No jvd Respiratory: normal air movement; No congested cough, No labored breathing Cardiovascular: regular rate and rhythm, nl pulses; No edema Gastrointestinal: soft, non-distended, min tender, no rebound Genitourinary - Female: nl external genitalia Musculoskeletal: nl extremities to inspection, Extremities: normal pulses Neurological: nl speech, no normal strength (generalized weakness) Skin: No rash or lesions, left hip wound: packed, scant drainage; sacral wound: Packed, minimal drainage, minimal slough Lymph: nl lymph nodes Results Result Diagram: 02/21/19 1026 02/20/19 0811 ALEK HANDLEY MD Feb 21, 2019 11:20
--- NOTE | 2019-02-21 11:43 | CONS ---
Assessment/Plan Assessment/Plan Hospital Course (Demo Recall) #Anemia -patient's initial Hg of 2.6 was likely secondary to GIB and perforated viscous. Stool ob at that time was negative. -anemia panel is consistent with iron deficiency -s/p Ferrlecit 125 mg IV x 5 days completed 01/30. Hg stable > 9 #Sepsis -2/2 UTI and wound infection -continue antibiotics. pt on zosyn #Perforated viscous -continue conservative management per surgery -pt is now stable #JACKIE -renal following -Creatine came down to 1.16 Consultation Date/Type/Reason Admit Date/Time Jan 16, 2019 at 23:33 Initial Consult Date 01/25/19 Type of Consult hematology Reason for Consultation anemia Requesting Provider: ALLISON WOLFF Date/Time of Note DATE: 02/21/19 TIME: 11:42 24 HR Interval Summary Free Text/Dictation Hg stable . no evidence of GI bleed Exam/Review of Systems Exam Vitals Vital Signs Date Temp Pulse Resp B/P (MAP) Pulse Ox O2 O2 Flow FiO2 Time Delivery Rate 02/21/19 98.0 66 15 133/85 98 Room Air 07:28 (101) Intake and Output 02/20/19 02/20/19 02/21/19 1515:00 23:00 07:00 IntakeIntake Total 840 ml 360 ml BalanceBalance 840 ml 360 ml Constitutional: alert, oriented Psych: no complaints Head: normocephalic Eyes: nl conjunctiva ENMT: nl external ears & nose Neck: supple Respiratory: clear to auscultation Cardiovascular: regular rate and rhythm Gastrointestinal: soft Musculoskeletal: nl extremities to inspection Results Result Diagram: 02/21/19 1026 02/20/19 0811 Results 24hrs Laboratory Tests Test 02/20/19 12:50 02/20/19 17:15 02/20/19 21:14 02/21/19 08:22 Bedside Glucose 129 126 128 208 Test 02/21/19 10:26 White Blood Count 5.2 Red Blood Count 3.49 L Hemoglobin 10.2 L Hematocrit 31.9 L Mean Corpuscular 91.4 Volume Mean Corpuscular 29.2 Hemoglobin Mean Corpuscular 32.0 Hemoglobin Concent Red Cell 15.8 H Distribution Width Platelet Count 261 # Mean Platelet Volume 10.2 Immature 0.400 Granulocytes % Neutrophils % 47.5 Lymphocytes % 36.8 Monocytes % 10.3 Eosinophils % 4.2 Basophils % 0.8 Nucleated Red Blood 0.0 Cells % Immature 0.020 Granulocytes # Neutrophils # 2.5 Lymphocytes # 1.9 Monocytes # 0.5 Eosinophils # 0.2 Basophils # 0.0 Nucleated Red Blood 0.0 Cells # Medications Medication Current Medications Ipratropium [place] (Atrovent Hfa) 4 puff Q2H RESP THERAPY PRN INH SHORTNESS OF BREATH; Start 01/17/19 at 00:00 Acetaminophen (Tylenol Liquid) 650 mg Q6H PRN PO PAIN LEVEL 1-3 OR FEVER; Start 01/17/19 at 00:00 Miscellaneous Information 1 ea NOTE XX ; Start 01/17/19 at 11:00 Glucose (Glutose) 15 gm Q15M PRN PO DECREASED GLUCOSE; Start 01/17/19 at 11:00 Glucose (Glutose) 22.5 gm Q15M PRN PO DECREASED GLUCOSE; Start 01/17/19 at 11:00 Dextrose (D50w Syringe) 25 ml Q15M PRN IV DECREASED GLUCOSE; Start 01/17/19 at 11:00 Dextrose (D50w Syringe) 50 ml Q15M PRN IV DECREASED GLUCOSE; Start 01/17/19 at 11:00 Glucagon (Glucagen) 1 mg Q15M PRN IM DECREASED GLUCOSE; Start 01/17/19 at 11:00 Glucose (Glutose) 15 gm Q15M PRN BUCCAL DECREASED GLUCOSE; Start 01/17/19 at 11:00 Collagenase (Santyl) 1 applic DAILY TOP Last administered on 02/21/19at 08:57; Admin Dose 1 APPLIC; Start 01/17/19 at 17:00 Carvedilol (Coreg) 3.125 mg BID PO Last administered on 02/21/19at 08:57; Admin Dose 3.125 MG; Start 01/21/19 at 09:00 Nystatin (Nystatin Powder) 1 applic BID TOP Last administered on 02/21/19at 08:57; Admin Dose 1 APPLIC; Start 01/27/19 at 21:00 Sodium Hypochlorite (Dakins Diluted ()) 1 applic DAILY TP Last administered on 02/21/19at 08:58; Admin Dose 1 APPLIC; Start 01/28/19 at 09:40 Citalopram Hydrobromide (Celexa) 10 mg DAILY PO Last administered on 02/21/19 08:57; Admin Dose 10 MG; Start 01/30/19 at 09:00 Insulin Aspart (Novolog Insulin Pen) NOVOLOG *MILD* ALGORITHM WITH MEALS BEDTIME SC Last administered on 02/21/19 09:01; Admin Dose 2 UNIT; Start 01/30/19 at 08:00 Baclofen (Lioresal) 5 mg TID PO Last administered on 02/21/19 08:57; Admin Dose 5 MG; Start 02/01/19 at 21:00 Lorazepam (Ativan) 0.5 mg Q8H PRN PO ANXIETY Last administered on 02/21/19at 03:34; Admin Dose 0.5 MG; Start 02/02/19 at 12:00 Oxycodone/ Acetaminophen (Percocet (5/ 325)) 1 tab Q6H PRN PO MODERATE PAIN LEVEL 4-6 Last administered on 02/21/19at 07:19; Admin Dose 1 TAB; Start 02/07/19 at 14:30 Diazepam (Valium) 2 mg TID PRN PO anxiety Last administered on 02/21/19 07:19; Admin Dose 2 MG; Start 02/11/19 at 13:00 Clonidine (Catapres) 0.1 mg Q8H PRN PO SBP>170; Start 02/19/19 at 11:30 Miscellaneous Information (*Order Clarification Bulletin) MEDICATION REQUIRES CLARIFICATION:PLE... Q8H XX ; Start 02/20/19 at 09:30 Miscellaneous Information (*Order Clarification Bulletin) PLEASE CLARIFY WITH MD... Q8H XX ; Start 02/21/19 at 11:00 RAJI DIXON M.D. Feb 21, 2019 11:43
[2019-02-21 14:05] VITALS: BP 140/73; PULSE 66; RESP 16
--- NOTE | 2019-02-21 17:18 | PN ---
Date/Time of Note Date/Time of Note DATE: 02/21/19 TIME: 17:18 Assessment/Plan VTE Prophylaxis Risk score (from Ns)>0 risk: 4 SCD applied (from [facility]): Yes Pharmacological prophylaxis: NA/contraindicated Pharm contraindication: bleeding Lines/Catheters IV Catheter Type (from [facility]): Peripheral IV Urinary Cath still in place: No Assessment/Plan Hospital Course EXAM: Well appearing, in NAD, Aox3 RRR CTAB Soft nt nd Contracted LEs L hip pressure ulcer 59 yo female with chronic debility and leg weakness who presented with sepsis, severe anemia, and perforated viscus Perforated viscus: - conservative management per surgery - resolved Hip OM: - s/p Abx course per ID Macrocytic anemia secondary to elevated reticulocyte count - Status post 4 units of packed red blood cells - stable Iron deficiency: - s/p IV iron Acute kidney injury secondary to severe septic shock - Renal function improved to baseline B/l LE weakness: - PT/OT Anxiety: - Valium TID PRN Prophylaxis: SCDs, Protonix Discharge planning; To SNF when accepted. Antibiotics are completed. Alternatively could return to previous living situation if family is willing to accpet Result Diagram: 02/21/19 1026 02/20/19 0811 Results 24hrs Laboratory Tests Test 02/20/19 21:14 02/21/19 08:22 02/21/19 10:26 02/21/19 12:54 Bedside Glucose 128 208 172 White Blood Count 5.2 Red Blood Count 3.49 L Hemoglobin 10.2 L Hematocrit 31.9 L Mean Corpuscular 91.4 Volume Mean Corpuscular 29.2 Hemoglobin Mean Corpuscular 32.0 Hemoglobin Concent Red Cell 15.8 H Distribution Width Platelet Count 261 # Mean Platelet Volume 10.2 Immature 0.400 Granulocytes % Neutrophils % 47.5 Lymphocytes % 36.8 Monocytes % 10.3 Eosinophils % 4.2 Basophils % 0.8 Nucleated Red Blood 0.0 Cells % Immature 0.020 Granulocytes # Neutrophils # 2.5 Lymphocytes # 1.9 Monocytes # 0.5 Eosinophils # 0.2 Basophils # 0.0 Nucleated Red Blood 0.0 Cells # Test 02/21/19 17:15 Bedside Glucose 215 Exam/Review of Systems Exam Vitals Vital Signs Date Temp Pulse Resp B/P (MAP) Pulse Ox O2 O2 Flow FiO2 Time Delivery Rate 02/21/19 98.9 66 16 140/73 97 Room Air 14:05 (95) Intake and Output 02/20/19 02/20/19 02/21/19 1515:00 23:00 07:00 IntakeIntake Total 840 ml 360 ml BalanceBalance 840 ml 360 ml Results Results 24hrs Laboratory Tests Test 02/20/19 21:14 02/21/19 08:22 02/21/19 10:26 02/21/19 12:54 Bedside Glucose 128 208 172 White Blood Count 5.2 Red Blood Count 3.49 L Hemoglobin 10.2 L Hematocrit 31.9 L Mean Corpuscular 91.4 Volume Mean Corpuscular 29.2 Hemoglobin Mean Corpuscular 32.0 Hemoglobin Concent Red Cell 15.8 H Distribution Width Platelet Count 261 # Mean Platelet Volume 10.2 Immature 0.400 Granulocytes % Neutrophils % 47.5 Lymphocytes % 36.8 Monocytes % 10.3 Eosinophils % 4.2 Basophils % 0.8 Nucleated Red Blood 0.0 Cells % Immature 0.020 Granulocytes # Neutrophils # 2.5 Lymphocytes # 1.9 Monocytes # 0.5 Eosinophils # 0.2 Basophils # 0.0 Nucleated Red Blood 0.0 Cells # Test 02/21/19 17:15 Bedside Glucose 215 Medications Medication Current Medications Ipratropium [place] (Atrovent Hfa) 4 puff Q2H RESP THERAPY PRN INH SHORTNESS OF BREATH; Start 01/17/19 at 00:00 Acetaminophen (Tylenol Liquid) 650 mg Q6H PRN PO PAIN LEVEL 1-3 OR FEVER; Start 01/17/19 at 00:00 Miscellaneous Information 1 ea NOTE XX ; Start 01/17/19 at 11:00 Glucose (Glutose) 15 gm Q15M PRN PO DECREASED GLUCOSE; Start 01/17/19 at 11:00 Glucose (Glutose) 22.5 gm Q15M PRN PO DECREASED GLUCOSE; Start 01/17/19 at 11:00 Dextrose (D50w Syringe) 25 ml Q15M PRN IV DECREASED GLUCOSE; Start 01/17/19 at 11:00 Dextrose (D50w Syringe) 50 ml Q15M PRN IV DECREASED GLUCOSE; Start 01/17/19 at 11:00 Glucagon (Glucagen) 1 mg Q15M PRN IM DECREASED GLUCOSE; Start 01/17/19 at 11:00 Glucose (Glutose) 15 gm Q15M PRN BUCCAL DECREASED GLUCOSE; Start 01/17/19 at 11:00 Collagenase (Santyl) 1 applic DAILY TOP Last administered on 02/21/19 08:57; Admin Dose 1 APPLIC; Start 01/17/19 at 17:00 Carvedilol (Coreg) 3.125 mg BID PO Last administered on 02/21/19 08:57; Admin Dose 3.125 MG; Start 01/21/19 at 09:00 Nystatin (Nystatin Powder) 1 applic BID TOP Last administered on 02/21/19 08: 57; Admin Dose 1 APPLIC; Start 01/27/19 at 21:00 Sodium Hypochlorite (Dakins Diluted ()) 1 applic DAILY TP Last administered on 02/21/19 08:58; Admin Dose 1 APPLIC; Start 01/28/19 at 09:40 Citalopram Hydrobromide (Celexa) 10 mg DAILY PO Last administered on 02/21/19 08:57; Admin Dose 10 MG; Start 01/30/19 at 09:00 Insulin Aspart (Novolog Insulin Pen) NOVOLOG *MILD* ALGORITHM WITH MEALS BEDTI ME SC Last administered on 02/21/19 13:13; Admin Dose 1 UNIT; Start 01/30/19 at 08:00 Baclofen (Lioresal) 5 mg TID PO Last administered on 02/21/19 12:52; Admin Dose 5 MG; Start 02/01/19 at 21:00 Lorazepam (Ativan) 0.5 mg Q8H PRN PO ANXIETY Last administered on 02/21/19 12:52; Admin Dose 0.5 MG; Start 02/02/19 at 12:00 Oxycodone/ Acetaminophen (Percocet (5/ 325)) 1 tab Q6H PRN PO MODERATE PAIN LEVEL 4-6 Last administered on 02/21/19 16:12; Admin Dose 1 TAB; Start 02/07/19 at 14:30 Diazepam (Valium) 2 mg TID PRN PO anxiety Last administered on 02/21/19 16:12; Admin Dose 2 MG; Start 02/11/19 at 13:00 Clonidine (Catapres) 0.1 mg Q8H PRN PO SBP>170; Start 02/19/19 at 11:30 Miscellaneous Information (*Order Clarification Bulletin) MEDICATION REQUIRES CLARIFICATION:PLE... Q8H XX ; Start 02/20/19 at 09:30 Miscellaneous Information (*Order Clarification Bulletin) PLEASE CLARIFY WITH ... Q8H XX ; Start 02/21/19 at 11:00 SONAL ALBERT MD Feb 21, 2019 17:18
[2019-02-21 19:47] VITALS: BP 134/67; PULSE 68; RESP 18
--- NOTE | 2019-02-21 21:46 | CONS ---
Assessment/Plan Assessment/Plan Assessment/Plan (Daily) #Anemia- Hgb 9.3 -patient's initial Hg of 2.6 was likely secondary to GIB and perforated viscous. Stool ob at that time was negative. -anemia panel is consistent with iron deficiency -s/p Ferrlecit 125 mg IV x 5 days completed 01/30. Hg stable > 9 #Sepsis -2/2 UTI and wound infection -continue antibiotics. pt on zosyn #Perforated viscous -continue conservative management per surgery -pt is now stable #JACKIE -renal following -Creatine came down to 1.16 Patient seen in collaboration with Dr Dumont. Consultation Date/Type/Reason Admit Date/Time Jan 16, 2019 at 23:33 Initial Consult Date 01/25/19 Type of Consult Hematology/oncology Reason for Consultation ANEMIA Requesting Provider: ALLIOSN WOLFF Date/Time of Note DATE: 02/21/19 TIME: 21:42 24 HR Interval Summary Free Text/Dictation 02/20/2019- ENTRY Feels better no new events reported last night - no GI bleed reported - possible dc am staff Constitutional: improved Detailed Summary Eyes: no complaints ENT: no complaints Respiratory: no complaints Cardiovascular: no complaints Gastrointestinal: no complaints Genitourinary: no complaints Musculoskeletal: bone/joint pain, restricted range of motion Skin: no complaints Neurologic: no complaints Endocrine: no complaints Lymphatic: no complaints Psychological: nl mood/affect Immunologic: no complaints Exam/Review of Systems Exam Vitals Vital Signs Date Temp Pulse Resp B/P (MAP) Pulse Ox O2 O2 Flow FiO2 Time Delivery Rate 02/21/19 98.4 68 18 134/67 99 19:47 (89) 02/21/19 Room Air 14:05 Intake and Output 02/20/19 02/20/19 02/21/19 1515:00 23:00 07:00 IntakeIntake Total 840 ml 360 ml BalanceBalance 840 ml 360 ml Constitutional: well developed Psych: nl mood/affect Eyes: nl lids, nl sclera ENMT: nl external ears & nose Neck: non-tender Cardiovascular: nl pulses, other Gastrointestinal: soft, non-tender Musculoskeletal: muscle weakness Extremities: normal pulses Neurological: nl speech, other (alert/ reponsive) Lymph: nontender Results Result Diagram: 02/21/19 1026 02/20/19 0811 Results 24hrs Laboratory Tests Test 02/21/19 08:22 02/21/19 10:26 02/21/19 12:54 02/21/19 17:15 Bedside Glucose 208 172 215 White Blood Count 5.2 Red Blood Count 3.49 L Hemoglobin 10.2 L Hematocrit 31.9 L Mean Corpuscular 91.4 Volume Mean Corpuscular 29.2 Hemoglobin Mean Corpuscular 32.0 Hemoglobin Concent Red Cell 15.8 H Distribution Width Platelet Count 261 # Mean Platelet Volume 10.2 Immature 0.400 Granulocytes % Neutrophils % 47.5 Lymphocytes % 36.8 Monocytes % 10.3 Eosinophils % 4.2 Basophils % 0.8 Nucleated Red Blood 0.0 Cells % Immature 0.020 Granulocytes # Neutrophils # 2.5 Lymphocytes # 1.9 Monocytes # 0.5 Eosinophils # 0.2 Basophils # 0.0 Nucleated Red Blood 0.0 Cells # Test 02/21/19 20:58 Bedside Glucose 144 Medications Medication Current Medications Ipratropium [place] (Atrovent Hfa) 4 puff Q2H RESP THERAPY PRN INH SHORTNESS OF BREATH; Start 01/17/19 at 00:00 Acetaminophen (Tylenol Liquid) 650 mg Q6H PRN PO PAIN LEVEL 1-3 OR FEVER; Start 01/17/19 at 00:00 Miscellaneous Information 1 ea NOTE XX ; Start 01/17/19 at 11:00 Glucose (Glutose) 15 gm Q15M PRN PO DECREASED GLUCOSE; Start 01/17/19 at 11:00 Glucose (Glutose) 22.5 gm Q15M PRN PO DECREASED GLUCOSE; Start 01/17/19 at 11:00 Dextrose (D50w Syringe) 25 ml Q15M PRN IV DECREASED GLUCOSE; Start 01/17/19 at 11:00 Dextrose (D50w Syringe) 50 ml Q15M PRN IV DECREASED GLUCOSE; Start 01/17/19 at 11:00 Glucagon (Glucagen) 1 mg Q15M PRN IM DECREASED GLUCOSE; Start 01/17/19 at 11:00 Glucose (Glutose) 15 gm Q15M PRN BUCCAL DECREASED GLUCOSE; Start 01/17/19 at 11:00 Collagenase (Santyl) 1 applic DAILY TOP Last administered on 02/21/19at 08:57; Admin Dose 1 APPLIC; Start 01/17/19 at 17:00 Carvedilol (Coreg) 3.125 mg BID PO Last administered on 02/21/19 21:00; Admin Dose 3.125 MG; Start 01/21/19 at 09:00 Nystatin (Nystatin Powder) 1 applic BID TOP Last administered on 02/21/19 21:03; Admin Dose 1 APPLIC; Start 01/27/19 at 21:00 Sodium Hypochlorite (Dakins Diluted ()) 1 applic DAILY TP Last administered on 02/21/19 08:58; Admin Dose 1 APPLIC; Start 01/28/19 at 09:40 Citalopram Hydrobromide (Celexa) 10 mg DAILY PO Last administered on 02/21/19 08:57; Admin Dose 10 MG; Start 01/30/19 at 09:00 Insulin Aspart (Novolog Insulin Pen) NOVOLOG *MILD* ALGORITHM WITH MEALS BEDTIME SC Last administered on 02/21/19 17:31; Admin Dose 2 UNIT; Start 01/30/19 at 08:00 Baclofen (Lioresal) 5 mg TID PO Last administered on 02/21/19 21:00; Admin Dose 5 MG; Start 02/01/19 at 21:00 Lorazepam (Ativan) 0.5 mg Q8H PRN PO ANXIETY Last administered on 02/21/19 20:59; Admin Dose 0.5 MG; Start 02/02/19 at 12:00 Oxycodone/ Acetaminophen (Percocet (5/ 325)) 1 tab Q6H PRN PO MODERATE PAIN LEVEL 4-6 Last administered on 02/21/19 16:12; Admin Dose 1 TAB; Start 02/07/19 at 14:30 Diazepam (Valium) 2 mg TID PRN PO anxiety Last administered on 02/21/19 16:12; Admin Dose 2 MG; Start 02/11/19 at 13:00 Clonidine (Catapres) 0.1 mg Q8H PRN PO SBP>170; Start 02/19/19 at 11:30 Miscellaneous Information (*Order Clarification Bulletin) MEDICATION REQUIRES CLARIFICATION:PLE... Q8H XX ; Start 02/20/19 at 09:30 Miscellaneous Information (*Order Clarification Bulletin) PLEASE CLARIFY WITH MD... Q8H XX ; Start 02/21/19 at 11:00 SHELBIE MARTINES Feb 21, 2019 21:45
[2019-02-22 01:24] VITALS: BP 126/85; PULSE 80; RESP 20
[2019-02-22] MEDS: DIAZEPAM 2 MG TAB PO PRN ×2 (04:22→12:20)
[2019-02-22] MEDS: OXYCODONE/ACETAMINOPHEN (5/325) TAB PO PRN ×3 (06:48→20:49)
[2019-02-22] MEDS: LORAZEPAM 0.5 MG TAB PO PRN ×2 (07:41→17:08)
[2019-02-22 08:07] VITALS: BP 130/66; PULSE 66; RESP 16
[2019-02-22] MEDS: INSULIN ASPART [NOVOLOG] 3 ML PEN SC SCH ×4 (09:10→20:54)
[2019-02-22] MEDS: CITALOPRAM 20 MG TAB PO SCH (09:11)
[2019-02-22] MEDS: NYSTATIN 30 GM POWDER BTL TOP SCH ×2 (09:12→20:53)
[2019-02-22] MEDS: BACLOFEN 10 MG TAB PO SCH ×3 (09:12→20:50)
[2019-02-22] MEDS: DAKINS 0.0125%(1/40) 473 ML SOLUTION TP SCH (09:12)
[2019-02-22] MEDS: BALSAM PERU/CASTOR OIL 60 GM TUBE TOP SCH ×2 (09:13→20:53)
[2019-02-22] MEDS: COLLAGENASE 5 GM (UD JAR) TOP SCH (09:13)
--- NOTE | 2019-02-22 10:14 | PN ---
Date/Time of Note Date/Time of Note DATE: 02/22/19 TIME: 10:13 Assessment/Plan Lines/Catheters IV Catheter Type (from [facility]): Peripheral IV Valadez in Place (from [facility]): No Assessment/Plan Chief Complaint/Hosp Course 1. Multiple wounds: + Wound cultures -Continue local care -frequent turning and off-loading -low air loss mattress -vitamin c -short term zinc -optimize nutrition -abx per ID -Debridement as needed > Patient has been refusing 2. Pneumoperitoneum with likely perforation of the bladder. Previously family did not consent to proceeding to surgery and she significantly improved with conservative treatments and extubated; CT cystogram noted without contrast leak. -Diet as tolerated -DC okay from surgical standpoint. Will need urology follow-up 3. Hypochromic anemia: Status post PRBC transfusion, H&H stable -Monitor and transfuse as needed 4. UTI: -abx per sensitivity -frequent bladder emptying/cath care 5. Transaminitis: Likely 2/2 #5 -Trend 6. NSTEMI: -Cardiac optimization>defer to cards 7. Possible left knee effusion -Per medical team; consider Ortho consult 8. Anxiety: Currently on Ativan -Psych optimization Thank you, Subjective 24 Hr Interval Summary Working with PT. No fevers, chills, sob, congested cough, cp, palpitations, keita, dizziness, nausea, vomiting, diarrhea, dysuria. Exam/Review of Systems Vital Signs Vitals Vital Signs Date Temp Pulse Resp B/P (MAP) Pulse Ox O2 O2 Flow FiO2 Time Delivery Rate 02/22/19 98.2 66 16 130/66 98 Room Air 08:07 (87) Intake and Output 02/21/19 02/21/19 02/22/19 1414:59 22:59 06:59 IntakeIntake Total 600 ml BalanceBalance 600 ml Exam Free Text/Dictation Constitutional: NAD, well developed; Psych: Labile Head: normocephalic, atraumatic Eyes: nl conjunctiva, EOMI, nl lids, nl sclera ENMT: nl external ears & nose, no nl lips & teeth (poor dentition), mucosa pink and moist Neck: supple, non-tender; No jvd Respiratory: normal air movement; No congested cough, No labored breathing Cardiovascular: regular rate and rhythm, nl pulses; No edema Gastrointestinal: soft, non-distended, min tender, no rebound Genitourinary - Female: nl external genitalia Musculoskeletal: nl extremities to inspection, Extremities: normal pulses Neurological: nl speech, no normal strength (generalized weakness) Skin: No rash or lesions, left hip wound: packed, scant drainage; sacral wound: Packed, minimal drainage, minimal slough Lymph: nl lymph nodes Results Result Diagram: 02/21/19 1026 02/20/19 0811 ALEK HANDLEY MD Feb 22, 2019 10:14
--- NOTE | 2019-02-22 11:55 | CONS ---
Assessment/Plan Assessment/Plan Hospital Course (Demo Recall) #Anemia -patient's initial Hg of 2.6 was likely secondary to GIB and perforated viscous. Stool ob at that time was negative. -anemia panel is consistent with iron deficiency -s/p Ferrlecit 125 mg IV x 5 days completed 01/30. Hg stable > 9 #Sepsis -2/2 UTI and wound infection -continue antibiotics. pt on zosyn #Perforated viscous -continue conservative management per surgery -pt is now stable #JACKIE -renal following -Creatine came down to 1.16 Consultation Date/Type/Reason Admit Date/Time Jan 16, 2019 at 23:33 Initial Consult Date 01/25/19 Type of Consult hematology Reason for Consultation anemia Requesting Provider: ALLISON WOLFF Date/Time of Note DATE: 02/22/19 TIME: 11:55 24 HR Interval Summary Free Text/Dictation no acute overnight events Exam/Review of Systems Exam Vitals Vital Signs Date Temp Pulse Resp B/P (MAP) Pulse Ox O2 O2 Flow FiO2 Time Delivery Rate 02/22/19 98.2 66 16 130/66 98 Room Air 08:07 (87) Intake and Output 02/21/19 02/21/19 02/22/19 1515:00 23:00 07:00 IntakeIntake Total 600 ml BalanceBalance 600 ml Constitutional: alert, oriented Psych: anxiety, depression Head: normocephalic Eyes: nl conjunctiva ENMT: nl external ears & nose Neck: supple Respiratory: clear to auscultation Cardiovascular: regular rate and rhythm Gastrointestinal: soft Musculoskeletal: nl extremities to inspection Results Result Diagram: 02/21/19 1026 02/20/19 0811 Results 24hrs Laboratory Tests Test 02/21/19 12:54 02/21/19 17:15 02/21/19 20:58 02/22/19 08:46 Bedside Glucose 172 215 144 459 *H Test 02/22/19 09:06 Bedside Glucose 244 H Medications Medication Current Medications Ipratropium [place] (Atrovent Hfa) 4 puff Q2H RESP THERAPY PRN INH SHORTNESS OF BREATH; Start 01/17/19 at 00:00 Acetaminophen (Tylenol Liquid) 650 mg Q6H PRN PO PAIN LEVEL 1-3 OR FEVER; Start 01/17/19 at 00:00 Miscellaneous Information 1 ea NOTE XX ; Start 01/17/19 at 11:00 Glucose (Glutose) 15 gm Q15M PRN PO DECREASED GLUCOSE; Start 01/17/19 at 11:00 Glucose (Glutose) 22.5 gm Q15M PRN PO DECREASED GLUCOSE; Start 01/17/19 at 11:00 Dextrose (D50w Syringe) 25 ml Q15M PRN IV DECREASED GLUCOSE; Start 01/17/19 at 11:00 Dextrose (D50w Syringe) 50 ml Q15M PRN IV DECREASED GLUCOSE; Start 01/17/19 at 11:00 Glucagon (Glucagen) 1 mg Q15M PRN IM DECREASED GLUCOSE; Start 01/17/19 at 11:00 Glucose (Glutose) 15 gm Q15M PRN BUCCAL DECREASED GLUCOSE; Start 01/17/19 at 11:00 Collagenase (Santyl) 1 applic DAILY TOP Last administered on 02/22/19 09:13; Admin Dose 1 APPLIC; Start 01/17/19 at 17:00 Carvedilol (Coreg) 3.125 mg BID PO Last administered on 02/22/19 09:11; Admin Dose 3.125 MG; Start 01/21/19 at 09:00 Nystatin (Nystatin Powder) 1 applic BID TOP Last administered on 02/22/19 09:12; Admin Dose 1 APPLIC; Start 01/27/19 at 21:00 Sodium Hypochlorite (Dakins Diluted ()) 1 applic DAILY TP Last administered on 02/22/19 09:12; Admin Dose 1 APPLIC; Start 01/28/19 at 09:40 Citalopram Hydrobromide (Celexa) 10 mg DAILY PO Last administered on 02/22/19 09:11; Admin Dose 10 MG; Start 01/30/19 at 09:00 Insulin Aspart (Novolog Insulin Pen) NOVOLOG *MILD* ALGORITHM WITH MEALS BEDTIME SC Last administered on 02/22/19 09:10; Admin Dose 3 UNIT; Start 01/30/19 at 08:00 Baclofen (Lioresal) 5 mg TID PO Last administered on 02/22/19 09:12; Admin Dose 5 MG; Start 02/01/19 at 21:00 Lorazepam (Ativan) 0.5 mg Q8H PRN PO ANXIETY Last administered on 02/22/19 07:41; Admin Dose 0.5 MG; Start 02/02/19 at 12:00 Oxycodone/ Acetaminophen (Percocet (5/ 325)) 1 tab Q6H PRN PO MODERATE PAIN LEVEL 4-6 Last administered on 02/22/19at 06:48; Admin Dose 1 TAB; Start 02/07/19 at 14:30 Diazepam (Valium) 2 mg TID PRN PO anxiety Last administered on 02/22/19at 04:22; Admin Dose 2 MG; Start 02/11/19 at 13:00 Clonidine (Catapres) 0.1 mg Q8H PRN PO SBP>170; Start 02/19/19 at 11:30 Miscellaneous Information (*Order Clarification Bulletin) MEDICATION REQUIRES CLARIFICATION:PLE... Q8H XX ; Start 02/20/19 at 09:30 Miscellaneous Information (*Order Clarification Bulletin) PLEASE CLARIFY WITH MD... Q8H XX ; Start 02/21/19 at 11:00 RAJI DIXON M.D. Feb 22, 2019 11:55
[2019-02-22 13:33] VITALS: BP 130/76; PULSE 73; RESP 16
--- NOTE | 2019-02-22 15:35 | PN ---
Date/Time of Note Date/Time of Note DATE: 02/22/19 TIME: 15:34 Assessment/Plan VTE Prophylaxis Risk score (from Nsg)>0 risk: 5 SCD applied (from Nsg): Yes Pharmacological prophylaxis: heparin Lines/Catheters IV Catheter Type (from Nrsg): Peripheral IV Urinary Cath still in place: No Assessment/Plan Hospital Course EXAM: Well appearing, in NAD, Aox3 RRR CTAB Soft nt nd Contracted LEs L hip pressure ulcer 59 yo female with chronic debility and leg weakness who presented with sepsis, severe anemia, and perforated viscus Perforated viscus: - conservative management per surgery - resolved Hip OM: - s/p Abx course per ID Macrocytic anemia secondary to elevated reticulocyte count - Status post 4 units of packed red blood cells - stable Iron deficiency: - s/p IV iron Acute kidney injury secondary to severe septic shock - Renal function improved to baseline B/l LE weakness: - PT/OT Anxiety: - Valium TID PRN Prophylaxis: SCDs, Protonix Discharge planning; To SNF when accepted. Antibiotics are completed. Alternatively could return to previous living situation if family is willing to accept Result Diagram: 02/21/19 1026 02/20/19 0811 Results 24hrs Laboratory Tests Test 02/21/19 17:15 02/21/19 20:58 02/22/19 08:46 02/22/19 09:06 Bedside Glucose 215 144 459 *H 244 H Test 02/22/19 12:22 Bedside Glucose 113 Subjective 24 Hr Interval Summary Free Text/Dictation Stable, awaiting placement Exam/Review of Systems Exam Vitals Vital Signs Date Temp Pulse Resp B/P (MAP) Pulse Ox O2 O2 Flow FiO2 Time Delivery Rate 02/22/19 98.4 73 16 130/76 99 Room Air 13:33 (94) Intake and Output 02/21/19 02/21/19 02/22/19 1515:00 23:00 07:00 IntakeIntake Total 600 ml BalanceBalance 600 ml Results Results 24hrs Laboratory Tests Test 02/21/19 17:15 02/21/19 20:58 02/22/19 08:46 02/22/19 09:06 Bedside Glucose 215 144 459 *H 244 H Test 02/22/19 12:22 Bedside Glucose 113 Medications Medication Current Medications Ipratropium [place] (Atrovent Hfa) 4 puff Q2H RESP THERAPY PRN INH SHORTNESS OF BREATH; Start 01/17/19 at 00:00 Acetaminophen (Tylenol Liquid) 650 mg Q6H PRN PO PAIN LEVEL 1-3 OR FEVER; Start 01/17/19 at 00:00 Miscellaneous Information 1 ea NOTE XX ; Start 01/17/19 at 11:00 Glucose (Glutose) 15 gm Q15M PRN PO DECREASED GLUCOSE; Start 01/17/19 at 11:00 Glucose (Glutose) 22.5 gm Q15M PRN PO DECREASED GLUCOSE; Start 01/17/19 at 11:00 Dextrose (D50w Syringe) 25 ml Q15M PRN IV DECREASED GLUCOSE; Start 01/17/19 at 11:00 Dextrose (D50w Syringe) 50 ml Q15M PRN IV DECREASED GLUCOSE; Start 01/17/19 at 11:00 Glucagon (Glucagen) 1 mg Q15M PRN IM DECREASED GLUCOSE; Start 01/17/19 at 11:00 Glucose (Glutose) 15 gm Q15M PRN BUCCAL DECREASED GLUCOSE; Start 01/17/19 at 11:00 Collagenase (Santyl) 1 applic DAILY TOP Last administered on 02/22/19 09:13; Admin Dose 1 APPLIC; Start 01/17/19 at 17:00 Carvedilol (Coreg) 3.125 mg BID PO Last administered on 02/22/19 09:11; Admin Dose 3.125 MG; Start 01/21/19 at 09:00 Nystatin (Nystatin Powder) 1 applic BID TOP Last administered on 02/22/19 09: 12; Admin Dose 1 APPLIC; Start 01/27/19 at 21:00 Sodium Hypochlorite (Dakins Diluted ()) 1 applic DAILY TP Last administered on 02/22/19 09:12; Admin Dose 1 APPLIC; Start 01/28/19 at 09:40 Citalopram Hydrobromide (Celexa) 10 mg DAILY PO Last administered on 02/22/19 09:11; Admin Dose 10 MG; Start 01/30/19 at 09:00 Insulin Aspart (Novolog Insulin Pen) NOVOLOG *MILD* ALGORITHM WITH MEALS BEDTI ME SC Last administered on 02/22/19 09:10; Admin Dose 3 UNIT; Start 01/30/19 at 08:00 Baclofen (Lioresal) 5 mg TID PO Last administered on 02/22/19 12:14; Admin Dose 5 MG; Start 02/01/19 at 21:00 Lorazepam (Ativan) 0.5 mg Q8H PRN PO ANXIETY Last administered on 02/22/19at 07:41; Admin Dose 0.5 MG; Start 02/02/19 at 12:00 Oxycodone/ Acetaminophen (Percocet (5/ 325)) 1 tab Q6H PRN PO MODERATE PAIN LEVEL 4-6 Last administered on 02/22/19at 13:45; Admin Dose 1 TAB; Start 02/07/19 at 14:30 Diazepam (Valium) 2 mg TID PRN PO anxiety Last administered on 02/22/19 12:20; Admin Dose 2 MG; Start 02/11/19 at 13:00 Clonidine (Catapres) 0.1 mg Q8H PRN PO SBP>170; Start 02/19/19 at 11:30 Miscellaneous Information (*Order Clarification Bulletin) MEDICATION REQUIRES CLARIFICATION:PLE... Q8H XX ; Start 02/20/19 at 09:30 Miscellaneous Information (*Order Clarification Bulletin) PLEASE CLARIFY WITH MD... Q8H XX ; Start 02/21/19 at 11:00 SONAL ALBERT MD Feb 22, 2019 15:35
[2019-02-22 19:36] VITALS: BP 130/77; PULSE 76; RESP 17
[2019-02-23 01:59] VITALS: BP 138/74; PULSE 81; RESP 19
[2019-02-23] MEDS: LORAZEPAM 0.5 MG TAB PO PRN ×2 (05:20→17:17)
[2019-02-23] MEDS: OXYCODONE/ACETAMINOPHEN (5/325) TAB PO PRN ×3 (06:29→18:18)
[2019-02-23 08:04] VITALS: BP 114/67; PULSE 71; RESP 18
[2019-02-23] MEDS: BACLOFEN 10 MG TAB PO SCH ×3 (08:30→20:25)
[2019-02-23] MEDS: CITALOPRAM 20 MG TAB PO SCH (08:30)
[2019-02-23] MEDS: INSULIN ASPART [NOVOLOG] 3 ML PEN SC SCH ×4 (08:30→20:19)
[2019-02-23] MEDS: COLLAGENASE 5 GM (UD JAR) TOP SCH (08:30)
[2019-02-23] MEDS: DAKINS 0.0125%(1/40) 473 ML SOLUTION TP SCH (08:35)
[2019-02-23] MEDS: BALSAM PERU/CASTOR OIL 60 GM TUBE TOP SCH ×2 (08:36→20:26)
[2019-02-23] MEDS: NYSTATIN 30 GM POWDER BTL TOP SCH ×3 (08:36→21:00)
--- NOTE | 2019-02-23 11:08 | PN ---
Date/Time of Note Date/Time of Note DATE: 02/23/19 TIME: 11:06 Assessment/Plan Lines/Catheters IV Catheter Type (from [facility]): Peripheral IV Valadez in Place (from [facility]): No Assessment/Plan Chief Complaint/Hosp Course 1. Multiple wounds: + Wound cultures -Continue local care -frequent turning and off-loading -low air loss mattress -vitamin c -short term zinc -optimize nutrition -abx per ID -Debridement as needed > Patient has been refusing 2. Pneumoperitoneum with likely perforation of the bladder. Previously family did not consent to proceeding to surgery and she significantly improved with conservative treatments and extubated; CT cystogram noted without contrast leak. -Diet as tolerated -DC okay from surgical standpoint. Will need urology follow-up 3. Hypochromic anemia: Status post PRBC transfusion, H&H stable -Monitor and transfuse as needed 4. UTI: -abx per sensitivity -frequent bladder emptying/cath care 5. Transaminitis: Likely 2/2 #5 -Trend 6. NSTEMI: -Cardiac optimization>defer to cards 7. Possible left knee effusion -Per medical team; consider Ortho consult 8. Anxiety: Currently on Ativan -Psych optimization Thank you. Patient seen and examined in collaboration with Dr. Osei Sanford. Subjective 24 Hr Interval Summary No fevers, chills, sob, congested cough, cp, palpitations, keita, dizziness, n/v/d/dysuria, excessive wound drainage. Exam/Review of Systems Vital Signs Vitals Vital Signs Date Temp Pulse Resp B/P (MAP) Pulse Ox O2 O2 Flow FiO2 Time Delivery Rate 02/23/19 98.1 71 18 114/67 97 Room Air 08:04 (83) Intake and Output 02/22/19 02/22/19 02/23/19 1515:00 23:00 07:00 IntakeIntake Total 700 ml BalanceBalance 700 ml Exam Free Text/Dictation Constitutional: NAD, well developed; Psych: Labile Head: normocephalic, atraumatic Eyes: nl conjunctiva, EOMI, nl lids, nl sclera ENMT: nl external ears & nose, no nl lips & teeth (poor dentition), mucosa pink and moist Neck: supple, non-tender; No jvd Respiratory: normal air movement; No congested cough, No labored breathing Cardiovascular: regular rate and rhythm, nl pulses; No edema Gastrointestinal: soft, non-distended, min tender, no rebound Genitourinary - Female: nl external genitalia Musculoskeletal: nl extremities to inspection, Extremities: normal pulses Neurological: nl speech, no normal strength (generalized weakness) Skin: No rash or lesions, left hip wound: packed, scant drainage; sacral wound: Packed, minimal drainage, minimal slough Lymph: nl lymph nodes Results Result Diagram: 02/21/19 1026 02/20/19 0811 MASSIMO WATKINS NP February 23, 2019 11:08
[2019-02-23] MEDS: DIAZEPAM 2 MG TAB PO PRN ×2 (11:22→22:43)
[2019-02-23 13:25] VITALS: BP 106/65; PULSE 70; RESP 18
--- NOTE | 2019-02-23 14:31 | PN ---
Date/Time of Note Date/Time of Note DATE: 02/23/19 TIME: 14:31 Assessment/Plan VTE Prophylaxis Risk score (from Nsg)>0 risk: 5 SCD applied (from Nsg): Yes Pharmacological prophylaxis: heparin Lines/Catheters IV Catheter Type (from Nrsg): Peripheral IV Urinary Cath still in place: No Assessment/Plan Hospital Course EXAM: Well appearing, in NAD, Aox3 RRR CTAB Soft nt nd Contracted LEs L hip pressure ulcer 59 yo female with chronic debility and leg weakness who presented with sepsis, severe anemia, and perforated viscus Perforated viscus: - conservative management per surgery - resolved Hip OM: - s/p Abx course per ID Macrocytic anemia secondary to elevated reticulocyte count - Status post 4 units of packed red blood cells - stable Iron deficiency: - s/p IV iron Acute kidney injury secondary to severe septic shock - Renal function improved to baseline B/l LE weakness: - PT/OT Anxiety: - Valium TID PRN Prophylaxis: SCDs, Protonix Discharge planning; To SNF when accepted. Antibiotics are completed. Alternatively could return to previous living situation if family is willing to accept Result Diagram: 02/21/19 1026 02/20/19 0811 Results 24hrs Laboratory Tests Test 02/22/19 17:00 02/22/19 20:41 02/23/19 08:14 02/23/19 12:36 Bedside Glucose 179 118 196 148 Subjective 24 Hr Interval Summary Free Text/Dictation No change to clinical status Awaiting placement Exam/Review of Systems Exam Vitals Vital Signs Date Temp Pulse Resp B/P (MAP) Pulse Ox O2 O2 Flow FiO2 Time Delivery Rate 02/23/19 98.0 70 18 106/65 97 Room Air 13:25 (79) Intake and Output 02/22/19 02/22/19 02/23/19 1515:00 23:00 07:00 IntakeIntake Total 700 ml BalanceBalance 700 ml Results Results 24hrs Laboratory Tests Test 02/22/19 17:00 02/22/19 20:41 02/23/19 08:14 02/23/19 12:36 Bedside Glucose 179 118 196 148 Medications Medication Current Medications Ipratropium [place] (Atrovent Hfa) 4 puff Q2H RESP THERAPY PRN INH SHORTNESS OF BREATH; Start 01/17/19 at 00:00 Acetaminophen (Tylenol Liquid) 650 mg Q6H PRN PO PAIN LEVEL 1-3 OR FEVER; Start 01/17/19 at 00:00 Miscellaneous Information 1 ea NOTE XX ; Start 01/17/19 at 11:00 Glucose (Glutose) 15 gm Q15M PRN PO DECREASED GLUCOSE; Start 01/17/19 at 11:00 Glucose (Glutose) 22.5 gm Q15M PRN PO DECREASED GLUCOSE; Start 01/17/19 at 11:00 Dextrose (D50w Syringe) 25 ml Q15M PRN IV DECREASED GLUCOSE; Start 01/17/19 at 11:00 Dextrose (D50w Syringe) 50 ml Q15M PRN IV DECREASED GLUCOSE; Start 01/17/19 at 11:00 Glucagon (Glucagen) 1 mg Q15M PRN IM DECREASED GLUCOSE; Start 01/17/19 at 11:00 Glucose (Glutose) 15 gm Q15M PRN BUCCAL DECREASED GLUCOSE; Start 01/17/19 at 11:00 Collagenase (Santyl) 1 applic DAILY TOP Last administered on 02/23/19 08:30; Admin Dose 1 APPLIC; Start 01/17/19 at 17:00 Carvedilol (Coreg) 3.125 mg BID PO Last administered on 02/23/19 08:31; Admin Dose 3.125 MG; Start 01/21/19 at 09:00 Nystatin (Nystatin Powder) 1 applic BID TOP Last administered on 02/23/19 08:36; Admin Dose 1 APPLIC; Start 01/27/19 at 21:00 Sodium Hypochlorite (Dakins Diluted ()) 1 applic DAILY TP Last administered on 02/23/19 08:35; Admin Dose 1 APPLIC; Start 01/28/19 at 09:40 Citalopram Hydrobromide (Celexa) 10 mg DAILY PO Last administered on 02/23/19 08:30; Admin Dose 10 MG; Start 01/30/19 at 09:00 Insulin Aspart (Novolog Insulin Pen) NOVOLOG *MILD* ALGORITHM WITH MEALS BEDTIME SC Last administered on 02/23/19 12:46; Admin Dose 1 UNIT; Start 01/30/19 at 08:00 Baclofen (Lioresal) 5 mg TID PO Last administered on 02/23/19 12:44; Admin Dose 5 MG; Start 02/01/19 at 21:00 Lorazepam (Ativan) 0.5 mg Q8H PRN PO ANXIETY Last administered on 02/23/19at 05:20; Admin Dose 0.5 MG; Start 02/02/19 at 12:00 Oxycodone/ Acetaminophen (Percocet (5/ 325)) 1 tab Q6H PRN PO MODERATE PAIN LEVEL 4-6 Last administered on 02/23/19at 12:45; Admin Dose 1 TAB; Start 02/07/19 at 14:30 Diazepam (Valium) 2 mg TID PRN PO anxiety Last administered on 02/23/19at 11:22; Admin Dose 2 MG; Start 02/11/19 at 13:00 Clonidine (Catapres) 0.1 mg Q8H PRN PO SBP>170; Start 02/19/19 at 11:30 Miscellaneous Information (*Order Clarification Bulletin) MEDICATION REQUIRES CLARIFICATION:PLE... Q8H XX ; Start 02/20/19 at 09:30 Miscellaneous Information (*Order Clarification Bulletin) PLEASE CLARIFY WITH ... Q8H XX ; Start 02/21/19 at 11:00 SONAL ALBERT MD February 23, 2019 14:31
[2019-02-23 20:28] VITALS: BP 139/77; PULSE 66; RESP 16
[2019-02-24] MEDS: OXYCODONE/ACETAMINOPHEN (5/325) TAB PO PRN ×4 (01:47→20:19)
[2019-02-24 02:10] VITALS: BP 128/74; PULSE 65; RESP 16
[2019-02-24] MEDS: LORAZEPAM 0.5 MG TAB PO PRN ×2 (06:31→15:46)
[2019-02-24 07:37] VITALS: BP 138/69; PULSE 64; RESP 16
[2019-02-24] MEDS: INSULIN ASPART [NOVOLOG] 3 ML PEN SC SCH ×4 (08:00→20:20)
[2019-02-24] MEDS: CITALOPRAM 20 MG TAB PO SCH (08:08)
[2019-02-24] MEDS: BACLOFEN 10 MG TAB PO SCH ×3 (08:08→20:19)
[2019-02-24] MEDS: COLLAGENASE 5 GM (UD JAR) TOP SCH (08:08)
[2019-02-24] MEDS: NYSTATIN 30 GM POWDER BTL TOP SCH ×2 (08:09→20:22)
[2019-02-24] MEDS: BALSAM PERU/CASTOR OIL 60 GM TUBE TOP SCH ×2 (08:09→20:22)
[2019-02-24] MEDS: DAKINS 0.0125%(1/40) 473 ML SOLUTION TP SCH (08:09)
--- NOTE | 2019-02-24 11:20 | PN ---
Date/Time of Note Date/Time of Note DATE: 02/24/19 TIME: 11:18 Assessment/Plan Lines/Catheters IV Catheter Type (from [facility]): Peripheral IV Valadez in Place (from [facility]): No Assessment/Plan Chief Complaint/Hosp Course 1. Multiple wounds: + Wound cultures; wounds healing -Continue local care -frequent turning and off-loading -low air loss mattress -vitamin c -short term zinc -optimize nutrition -abx per ID -Debridement as needed > Patient refused 2. Pneumoperitoneum with likely perforation of the bladder. Previously family did not consent to proceeding to surgery and she significantly improved with conservative treatments and extubated; CT cystogram noted without contrast leak. -Diet as tolerated -DC okay from surgical standpoint. Will need urology follow-up 3. Hypochromic anemia: Status post PRBC transfusion, H&H stable -Monitor and transfuse as needed 4. UTI: -abx per sensitivity -frequent bladder emptying/cath care 5. Transaminitis: Likely 2/2 #5 -Trend 6. NSTEMI: -Cardiac optimization>defer to cards 7. Possible left knee effusion -Per medical team; consider Ortho consult 8. Anxiety: Currently on Ativan -Psych optimization Thank you. Patient seen and examined in collaboration with Dr. Osei Sanford. Subjective 24 Hr Interval Summary No fevers, chills, sob, congested cough, cp, palpitations, keita, dizziness, n/v/d/dysuria. wound healing Exam/Review of Systems Vital Signs Vitals Vital Signs Date Temp Pulse Resp B/P (MAP) Pulse Ox O2 O2 Flow FiO2 Time Delivery Rate 02/24/19 98.2 64 16 138/69 97 Room Air 07:37 (92) Intake and Output 02/23/19 02/23/19 02/24/19 1515:00 23:00 07:00 IntakeIntake Total 1340 ml 420 ml BalanceBalance 1340 ml 420 ml Exam Free Text/Dictation Constitutional: NAD, well developed; Psych: Labile Head: normocephalic, atraumatic Eyes: nl conjunctiva, EOMI, nl lids, nl sclera ENMT: nl external ears & nose, no nl lips & teeth (poor dentition), mucosa pink and moist Neck: supple, non-tender; No jvd Respiratory: normal air movement; No congested cough, No labored breathing Cardiovascular: regular rate and rhythm, nl pulses; No edema Gastrointestinal: soft, non-distended, min tender, no rebound Genitourinary - Female: nl external genitalia Musculoskeletal: nl extremities to inspection, Extremities: normal pulses Neurological: nl speech, no normal strength (generalized weakness) Skin: No rash or lesions, left hip wound: packed, scant drainage; sacral wound: Packed, minimal drainage, minimal slough Lymph: nl lymph nodes Results Result Diagram: 02/21/19 1026 02/20/19 0811 MASSIMO WATKINS NP February 24, 2019 11:20
[2019-02-24] MEDS: DIAZEPAM 2 MG TAB PO PRN (12:34)
[2019-02-24 13:33] VITALS: BP 115/62; PULSE 65; RESP 16
--- NOTE | 2019-02-24 15:17 | CONS ---
Assessment/Plan Assessment/Plan Hospital Course (Demo Recall) #Anemia -patient's initial Hg of 2.6 was likely secondary to GIB and perforated viscous. Stool ob at that time was negative. -anemia panel is consistent with iron deficiency -s/p Ferrlecit 125 mg IV x 5 days completed 01/30. Hg stable > 9 #Sepsis -2/2 UTI and wound infection -continue antibiotics. pt on zosyn #Perforated viscous -continue conservative management per surgery -pt is now stable #JACKIE -renal following -Creatine came down to 1.16 Consultation Date/Type/Reason Admit Date/Time Jan 16, 2019 at 23:33 Initial Consult Date 01/25/19 Type of Consult hematology Reason for Consultation anemia Requesting Provider: ALLISON WOLFF Date/Time of Note DATE: 02/24/19 TIME: 15:16 24 HR Interval Summary Free Text/Dictation no acute overnight events. abdominal pain stable Exam/Review of Systems Exam Vitals Vital Signs Date Temp Pulse Resp B/P (MAP) Pulse Ox O2 O2 Flow FiO2 Time Delivery Rate 02/24/19 98.6 65 16 115/62 96 Room Air 13:33 (79) Intake and Output 02/23/19 02/23/19 02/24/19 1515:00 23:00 07:00 IntakeIntake Total 1340 ml 420 ml BalanceBalance 1340 ml 420 ml Constitutional: alert, oriented Psych: no complaints Head: normocephalic Eyes: nl conjunctiva ENMT: nl external ears & nose Neck: supple Respiratory: clear to auscultation Cardiovascular: regular rate and rhythm Gastrointestinal: soft Musculoskeletal: nl extremities to inspection Extremities: normal pulses Results Result Diagram: 02/21/19 1026 02/20/19 0811 Results 24hrs Laboratory Tests Test 02/23/19 17:07 02/23/19 20:18 02/24/19 08:00 02/24/19 12:33 Bedside Glucose 127 149 97 154 Medications Medication Current Medications Ipratropium [place] (Atrovent Hfa) 4 puff Q2H RESP THERAPY PRN INH SHORTNESS OF BREATH; Start 01/17/19 at 00:00 Acetaminophen (Tylenol Liquid) 650 mg Q6H PRN PO PAIN LEVEL 1-3 OR FEVER; Start 01/17/19 at 00:00 Miscellaneous Information 1 ea NOTE XX ; Start 01/17/19 at 11:00 Glucose (Glutose) 15 gm Q15M PRN PO DECREASED GLUCOSE; Start 01/17/19 at 11:00 Glucose (Glutose) 22.5 gm Q15M PRN PO DECREASED GLUCOSE; Start 01/17/19 at 11:00 Dextrose (D50w Syringe) 25 ml Q15M PRN IV DECREASED GLUCOSE; Start 01/17/19 at 11:00 Dextrose (D50w Syringe) 50 ml Q15M PRN IV DECREASED GLUCOSE; Start 01/17/19 at 11:00 Glucagon (Glucagen) 1 mg Q15M PRN IM DECREASED GLUCOSE; Start 01/17/19 at 11:00 Glucose (Glutose) 15 gm Q15M PRN BUCCAL DECREASED GLUCOSE; Start 01/17/19 at 11:00 Collagenase (Santyl) 1 applic DAILY TOP Last administered on 02/24/19 08:08; Admin Dose 1 APPLIC; Start 01/17/19 at 17:00 Carvedilol (Coreg) 3.125 mg BID PO Last administered on 02/24/19 08:08; Admin Dose 3.125 MG; Start 01/21/19 at 09:00 Nystatin (Nystatin Powder) 1 applic BID TOP Last administered on 02/24/19 08:09; Admin Dose 1 APPLIC; Start 01/27/19 at 21:00 Sodium Hypochlorite (Dakins Diluted ()) 1 applic DAILY TP Last administered on 02/24/19 08:09; Admin Dose 1 APPLIC; Start 01/28/19 at 09:40 Citalopram Hydrobromide (Celexa) 10 mg DAILY PO Last administered on 02/24/19 08:08; Admin Dose 10 MG; Start 01/30/19 at 09:00 Insulin Aspart (Novolog Insulin Pen) NOVOLOG *MILD* ALGORITHM WITH MEALS BEDTIME SC Last administered on 02/24/19 12:39; Admin Dose 1 UNIT; Start 01/30/19 at 08:00 Baclofen (Lioresal) 5 mg TID PO Last administered on 02/24/19 12:34; Admin Dose 5 MG; Start 02/01/19 at 21:00 Lorazepam (Ativan) 0.5 mg Q8H PRN PO ANXIETY Last administered on 02/24/19 06:31; Admin Dose 0.5 MG; Start 02/02/19 at 12:00 Oxycodone/ Acetaminophen (Percocet (5/ 325)) 1 tab Q6H PRN PO MODERATE PAIN LEVEL 4-6 Last administered on 02/24/19at 14:19; Admin Dose 1 TAB; Start 02/07/19 at 14:30 Diazepam (Valium) 2 mg TID PRN PO anxiety Last administered on 02/24/19at 12:34; Admin Dose 2 MG; Start 02/11/19 at 13:00 Clonidine (Catapres) 0.1 mg Q8H PRN PO SBP>170; Start 02/19/19 at 11:30 Miscellaneous Information (*Order Clarification Bulletin) MEDICATION REQUIRES CLARIFICATION:PLE... Q8H XX ; Start 02/20/19 at 09:30 Miscellaneous Information (*Order Clarification Bulletin) PLEASE CLARIFY WITH MD... Q8H XX ; Start 02/21/19 at 11:00 RAJI DIXON M.D. February 24, 2019 15:17
[2019-02-24 19:47] VITALS: BP 133/71; PULSE 69; RESP 18
[2019-02-25 02:00] VITALS: BP 138/76; PULSE 62; RESP 18
[2019-02-25] MEDS: OXYCODONE/ACETAMINOPHEN (5/325) TAB PO PRN ×3 (03:12→17:58)
[2019-02-25 08:00] VITALS: BP 135/62; PULSE 56; RESP 18
[2019-02-25] MEDS: INSULIN ASPART [NOVOLOG] 3 ML PEN SC SCH ×4 (08:00→20:43)
[2019-02-25] MEDS: BACLOFEN 10 MG TAB PO SCH ×3 (08:15→20:29)
[2019-02-25] MEDS: LORAZEPAM 0.5 MG TAB PO PRN ×2 (08:15→20:29)
[2019-02-25] MEDS: CITALOPRAM 20 MG TAB PO SCH (08:15)
[2019-02-25] MEDS: COLLAGENASE 5 GM (UD JAR) TOP SCH (08:17)
[2019-02-25] MEDS: DAKINS 0.0125%(1/40) 473 ML SOLUTION TP SCH (08:17)
[2019-02-25] MEDS: NYSTATIN 30 GM POWDER BTL TOP SCH ×2 (08:18→20:31)
[2019-02-25] MEDS: BALSAM PERU/CASTOR OIL 60 GM TUBE TOP SCH ×2 (08:18→20:31)
--- NOTE | 2019-02-25 12:02 | CONS ---
Assessment/Plan Assessment/Plan Hospital Course (Demo Recall) #Anemia -patient's initial Hg of 2.6 was likely secondary to GIB and perforated viscous. Stool ob at that time was negative. -anemia panel is consistent with iron deficiency -s/p Ferrlecit 125 mg IV x 5 days completed 01/30. Hg stable > 9. last checked on 02/19 #Sepsis -2/2 UTI and wound infection -now off antibiotics #Perforated viscous -continue conservative management per surgery -pt is now stable #JACKIE -renal following -Creatine came down to 1.16 Consultation Date/Type/Reason Admit Date/Time Jan 16, 2019 at 23:33 Initial Consult Date 01/25/19 Type of Consult hematology Reason for Consultation anemia Requesting Provider: ALLISON WOLFF Date/Time of Note DATE: 02/25/19 TIME: 12:01 24 HR Interval Summary Free Text/Dictation stable abdominal pain. no acute overnight events Exam/Review of Systems Exam Vitals Vital Signs Date Temp Pulse Resp B/P (MAP) Pulse Ox O2 O2 Flow FiO2 Time Delivery Rate 02/25/19 98.3 56 18 135/62 95 08:00 (86) 02/24/19 Room Air 13:33 Intake and Output 02/24/19 02/24/19 02/25/19 1515:00 23:00 07:00 IntakeIntake Total 660 ml BalanceBalance 660 ml Constitutional: alert, oriented Psych: anxiety Head: normocephalic Eyes: nl conjunctiva ENMT: nl external ears & nose Neck: supple Respiratory: clear to auscultation Cardiovascular: regular rate and rhythm Gastrointestinal: soft Musculoskeletal: nl extremities to inspection Results Result Diagram: 02/21/19 1026 Results 24hrs Laboratory Tests Test 02/24/19 12:33 02/24/19 17:21 02/24/19 20:18 02/25/19 08:14 Bedside Glucose 154 117 103 97 Medications Medication Current Medications Ipratropium [place] (Atrovent Hfa) 4 puff Q2H RESP THERAPY PRN INH SHORTNESS OF BREATH; Start 01/17/19 at 00:00 Acetaminophen (Tylenol Liquid) 650 mg Q6H PRN PO PAIN LEVEL 1-3 OR FEVER; Start 01/17/19 at 00:00 Miscellaneous Information 1 ea NOTE XX ; Start 01/17/19 at 11:00 Glucose (Glutose) 15 gm Q15M PRN PO DECREASED GLUCOSE; Start 01/17/19 at 11:00 Glucose (Glutose) 22.5 gm Q15M PRN PO DECREASED GLUCOSE; Start 01/17/19 at 11:00 Dextrose (D50w Syringe) 25 ml Q15M PRN IV DECREASED GLUCOSE; Start 01/17/19 at 11:00 Dextrose (D50w Syringe) 50 ml Q15M PRN IV DECREASED GLUCOSE; Start 01/17/19 at 11:00 Glucagon (Glucagen) 1 mg Q15M PRN IM DECREASED GLUCOSE; Start 01/17/19 at 11:00 Glucose (Glutose) 15 gm Q15M PRN BUCCAL DECREASED GLUCOSE; Start 01/17/19 at 11:00 Collagenase (Santyl) 1 applic DAILY TOP Last administered on 02/25/19 08:17; Admin Dose 1 APPLIC; Start 01/17/19 at 17:00 Carvedilol (Coreg) 3.125 mg BID PO Last administered on 02/24/19 20:20; Admin D ose 3.125 MG; Start 01/21/19 at 09:00 Nystatin (Nystatin Powder) 1 applic BID TOP Last administered on 02/25/19 08:18; Admin Dose 1 APPLIC; Start 01/27/19 at 21:00 Sodium Hypochlorite (Dakins Diluted ()) 1 applic DAILY TP Last administered on 02/25/19 08:17; Admin Dose 1 APPLIC; Start 01/28/19 at 09:40 Citalopram Hydrobromide (Celexa) 10 mg DAILY PO Last administered on 02/25/19 08:15; Admin Dose 10 MG; Start 01/30/19 at 09:00 Insulin Aspart (Novolog Insulin Pen) NOVOLOG *MILD* ALGORITHM WITH MEALS BEDTIME SC Last administered on 02/24/19 12:39; Admin Dose 1 UNIT; Start 01/30/19 at 08:00 Baclofen (Lioresal) 5 mg TID PO Last administered on 02/25/19 08:15; Admin Dose 5 MG; Start 02/01/19 at 21:00 Lorazepam (Ativan) 0.5 mg Q8H PRN PO ANXIETY Last administered on 02/25/19 08:15; Admin Dose 0.5 MG; Start 02/02/19 at 12:00 Oxycodone/ Acetaminophen (Percocet (5/ 325)) 1 tab Q6H PRN PO MODERATE PAIN LEVEL 4-6 Last administered on 02/25/19at 11:46; Admin Dose 1 TAB; Start 02/07/19 at 14:30 Diazepam (Valium) 2 mg TID PRN PO anxiety Last administered on 02/24/19at 12:34; Admin Dose 2 MG; Start 02/11/19 at 13:00 Clonidine (Catapres) 0.1 mg Q8H PRN PO SBP>170; Start 02/19/19 at 11:30 Miscellaneous Information (*Order Clarification Bulletin) MEDICATION REQUIRES CLARIFICATION:PLE... Q8H XX ; Start 02/20/19 at 09:30 Miscellaneous Information (*Order Clarification Bulletin) PLEASE CLARIFY WITH MD... Q8H XX ; Start 02/21/19 at 11:00 RAJI DIXON M.D. February 25, 2019 12:02
--- NOTE | 2019-02-25 12:45 | PN ---
Date/Time of Note Date/Time of Note DATE: 02/25/19 TIME: 12:42 Assessment/Plan Lines/Catheters IV Catheter Type (from [facility]): Peripheral IV Valadez in Place (from [facility]): No Assessment/Plan Chief Complaint/Hosp Course 1. Multiple wounds: + Wound cultures; wounds continuing to heal -Continue local care -frequent turning and off-loading -low air loss mattress -vitamin c -short term zinc -optimize nutrition -abx per ID -Debridement as needed > Patient refusing 2. Pneumoperitoneum with likely perforation of the bladder. Previously family did not consent to proceeding to surgery and she significantly improved with conservative treatments and extubated; CT cystogram noted without contrast leak. -Diet as tolerated -DC okay from surgical standpoint. Will need urology follow-up 3. Hypochromic anemia: Status post PRBC transfusion, H&H stable -Monitor and transfuse as needed 4. UTI: -abx per sensitivity -frequent bladder emptying/cath care 5. Transaminitis: Likely 2/2 #5 -Trend 6. NSTEMI: -Cardiac optimization>defer to cards 7. Possible left knee effusion -Per medical team; consider Ortho consult 8. Anxiety: Currently on Ativan -Psych optimization Thank you. Patient seen and examined in collaboration with Dr. Osei Sanford. Subjective 24 Hr Interval Summary No fevers, chills, sob, congested cough, cp, palpitations, keita, dizziness, n/v/d/dysuria, excessive wound drainage/odor. Exam/Review of Systems Vital Signs Vitals Vital Signs Date Temp Pulse Resp B/P (MAP) Pulse Ox O2 O2 Flow FiO2 Time Delivery Rate 02/25/19 98.3 56 18 135/62 95 08:00 (86) 02/24/19 Room Air 13:33 Intake and Output 02/24/19 02/24/19 02/25/19 1515:00 23:00 07:00 IntakeIntake Total 660 ml BalanceBalance 660 ml Exam Free Text/Dictation Constitutional: NAD, well developed; Psych: Labile Head: normocephalic, atraumatic Eyes: nl conjunctiva, EOMI, nl lids, nl sclera ENMT: nl external ears & nose, no nl lips & teeth (poor dentition), mucosa pink and moist Neck: supple, non-tender; No jvd Respiratory: normal air movement; No congested cough, No labored breathing Cardiovascular: regular rate and rhythm, nl pulses; No edema Gastrointestinal: soft, non-distended, min tender, no rebound Genitourinary - Female: nl external genitalia Musculoskeletal: nl extremities to inspection, Extremities: normal pulses Neurological: nl speech, no normal strength (generalized weakness) Skin: No rash or lesions, left hip wound: packed, scant drainage; sacral wound: Packed, scant drainage Lymph: nl lymph nodes Results Result Diagram: 02/21/19 1026 MASSIMO WATKINS NP February 25, 2019 12:45
[2019-02-25] MEDS ORDERED: POLYETHYLENE GLYCOL 17 GM PACKET PO PRN (13:00)
[2019-02-25 14:00] VITALS: BP 124/64; PULSE 63; RESP 18
--- NOTE | 2019-02-25 16:14 | PN ---
Date/Time of Note Date/Time of Note DATE: 02/25/19 TIME: 16:14 Assessment/Plan VTE Prophylaxis Risk score (from Nsg)>0 risk: 5 SCD applied (from [facility]): Yes Pharmacological prophylaxis: heparin Lines/Catheters IV Catheter Type (from [facility]): Peripheral IV Urinary Cath still in place: No Assessment/Plan Hospital Course EXAM: Well appearing, in NAD, Aox3 RRR CTAB Soft nt nd Contracted LEs L hip pressure ulcer 59 yo female with chronic debility and leg weakness who presented with sepsis, severe anemia, and perforated viscus Perforated viscus: - conservative management per surgery - resolved Hip OM: - s/p Abx course per ID Macrocytic anemia secondary to elevated reticulocyte count - Status post 4 units of packed red blood cells - stable Iron deficiency: - s/p IV iron Acute kidney injury secondary to severe septic shock - Renal function improved to baseline B/l LE weakness: - PT/OT Anxiety: - Valium TID PRN Prophylaxis: SCDs, Protonix Discharge planning; To SNF when accepted. Antibiotics are completed. Alternatively could return to previous living situation if family is willing to accept Result Diagram: 02/21/19 1026 Results 24hrs Laboratory Tests Test 02/24/19 17:21 02/24/19 20:18 02/25/19 08:14 02/25/19 12:15 Bedside Glucose 117 103 97 135 Subjective 24 Hr Interval Summary Free Text/Dictation Worked with PT Feels well No complaints Exam/Review of Systems Exam Vitals Vital Signs Date Temp Pulse Resp B/P (MAP) Pulse Ox O2 O2 Flow FiO2 Time Delivery Rate 02/25/19 98.3 56 18 135/62 95 08:00 (86) 02/24/19 Room Air 13:33 Intake and Output 02/24/19 02/24/19 02/25/19 1515:00 23:00 07:00 IntakeIntake Total 660 ml BalanceBalance 660 ml Results Results 24hrs Laboratory Tests Test 02/24/19 17:21 02/24/19 20:18 02/25/19 08:14 02/25/19 12:15 Bedside Glucose 117 103 97 135 Medications Medication Current Medications Ipratropium [place] (Atrovent Hfa) 4 puff Q2H RESP THERAPY PRN INH SHORTNESS OF BREATH; Start 01/17/19 at 00:00 Acetaminophen (Tylenol Liquid) 650 mg Q6H PRN PO PAIN LEVEL 1-3 OR FEVER; Start 01/17/19 at 00:00 Miscellaneous Information 1 ea NOTE XX ; Start 01/17/19 at 11:00 Glucose (Glutose) 15 gm Q15M PRN PO DECREASED GLUCOSE; Start 01/17/19 at 11:00 Glucose (Glutose) 22.5 gm Q15M PRN PO DECREASED GLUCOSE; Start 01/17/19 at 11:00 Dextrose (D50w Syringe) 25 ml Q15M PRN IV DECREASED GLUCOSE; Start 01/17/19 at 11:00 Dextrose (D50w Syringe) 50 ml Q15M PRN IV DECREASED GLUCOSE; Start 01/17/19 at 11:00 Glucagon (Glucagen) 1 mg Q15M PRN IM DECREASED GLUCOSE; Start 01/17/19 at 11:00 Glucose (Glutose) 15 gm Q15M PRN BUCCAL DECREASED GLUCOSE; Start 01/17/19 at 11:00 Collagenase (Santyl) 1 applic DAILY TOP Last administered on 02/25/19 08:17; Admin Dose 1 APPLIC; Start 01/17/19 at 17:00 Carvedilol (Coreg) 3.125 mg BID PO Last administered on 02/24/19 20:20; Admin Dose 3.125 MG; Start 01/21/19 at 09:00 Nystatin (Nystatin Powder) 1 applic BID TOP Last administered on 02/25/19 08:18; Admin Dose 1 APPLIC; Start 01/27/19 at 21:00 Sodium Hypochlorite (Dakins Diluted ()) 1 applic DAILY TP Last administered on 02/25/19 08:17; Admin Dose 1 APPLIC; Start 01/28/19 at 09:40 Citalopram Hydrobromide (Celexa) 10 mg DAILY PO Last administered on 02/25/19 08:15; Admin Dose 10 MG; Start 01/30/19 at 09:00 Insulin Aspart (Novolog Insulin Pen) NOVOLOG *MILD* ALGORITHM WITH MEALS BEDTIME SC Last administered on 02/24/19 12:39; Admin Dose 1 UNIT; Start 01/30/19 at 08:00 Baclofen (Lioresal) 5 mg TID PO Last administered on 02/25/19 12:16; Admin Dose 5 MG; Start 02/01/19 at 21:00 Lorazepam (Ativan) 0.5 mg Q8H PRN PO ANXIETY Last administered on 02/25/19 08:15; Admin Dose 0.5 MG; Start 02/02/19 at 12:00 Oxycodone/ Acetaminophen (Percocet (5/ 325)) 1 tab Q6H PRN PO MODERATE PAIN LEVEL 4-6 Last administered on 02/25/19at 11:46; Admin Dose 1 TAB; Start 02/07/19 at 14:30 Diazepam (Valium) 2 mg TID PRN PO anxiety Last administered on 02/24/19at 12:34; Admin Dose 2 MG; Start 02/11/19 at 13:00 Clonidine (Catapres) 0.1 mg Q8H PRN PO SBP>170; Start 02/19/19 at 11:30 Miscellaneous Information (*Order Clarification Bulletin) MEDICATION REQUIRES CLARIFICATION:PLE... Q8H XX ; Start 02/20/19 at 09:30 Miscellaneous Information (*Order Clarification Bulletin) PLEASE CLARIFY WITH MD... Q8H XX ; Start 02/21/19 at 11:00 Polyethylene Glycol (Miralax) 17 gm DAILY PRN PO CONSTIPATION; Start 02/25/19 at 13:00 SONAL ALBERT MD February 25, 2019 16:14
[2019-02-25] MEDS: DIAZEPAM 2 MG TAB PO PRN (16:56)
[2019-02-25 19:30] VITALS: BP 131/66; PULSE 67; RESP 17
[2019-02-26] MEDS: OXYCODONE/ACETAMINOPHEN (5/325) TAB PO PRN ×4 (00:52→19:45)
[2019-02-26 02:00] VITALS: BP 129/77; PULSE 60; RESP 18
[2019-02-26] MEDS: INSULIN ASPART [NOVOLOG] 3 ML PEN SC SCH ×4 (08:00→20:46)
[2019-02-26 08:12] VITALS: BP 138/76; PULSE 62; RESP 18
[2019-02-26] MEDS: LORAZEPAM 0.5 MG TAB PO PRN ×2 (08:28→17:23)
[2019-02-26] MEDS: CITALOPRAM 20 MG TAB PO SCH (08:29)
[2019-02-26] MEDS: BACLOFEN 10 MG TAB PO SCH ×3 (08:29→20:47)
[2019-02-26] MEDS: COLLAGENASE 5 GM (UD JAR) TOP SCH (08:29)
[2019-02-26] MEDS: NYSTATIN 30 GM POWDER BTL TOP SCH ×2 (08:30→21:37)
[2019-02-26] MEDS: BALSAM PERU/CASTOR OIL 60 GM TUBE TOP SCH ×2 (08:30→21:37)
[2019-02-26] MEDS: DAKINS 0.0125%(1/40) 473 ML SOLUTION TP SCH (08:30)
--- NOTE | 2019-02-26 12:59 | CONS ---
Assessment/Plan Assessment/Plan Assessment/Plan (Daily) #Anemia -patient's initial Hg of 2.6 was likely secondary to GIB and perforated viscous. Stool ob at that time was negative. -anemia panel is consistent with iron deficiency -s/p Ferrlecit 125 mg IV x 5 days completed 01/30. Hg stable > 9. last checked on 02/19 #Sepsis -2/2 UTI and wound infection -now off antibiotics #Perforated viscous -continue conservative management per surgery -pt is now stable #JACKIE -renal following -Creatine came down to 1.16 Patient seen in collaboration with Dr Laura. dw staff Consultation Date/Type/Reason Admit Date/Time Jan 16, 2019 at 23:33 Initial Consult Date 01/25/19 Type of Consult Hematology/oncology Reason for Consultation Anemia Requesting Provider: ALLISON WOLFF Date/Time of Note DATE: 02/26/19 TIME: 12:57 24 HR Interval Summary Free Text/Dictation resting in bed seems comfortable possible discharge a m no new events reported last night Constitutional: improved Detailed Summary Eyes: no complaints ENT: no complaints Respiratory: no complaints Cardiovascular: no complaints Gastrointestinal: no complaints Genitourinary: no complaints Musculoskeletal: restricted range of motion Skin: no complaints Neurologic: no complaints Exam/Review of Systems Exam Vitals Vital Signs Date Temp Pulse Resp B/P (MAP) Pulse Ox O2 O2 Flow FiO2 Time Delivery Rate 02/26/19 98.1 62 18 138/76 95 08:12 (96) 02/24/19 Room Air 13:33 Intake and Output 02/25/19 02/25/19 02/26/19 1515:00 23:00 07:00 IntakeIntake Total 680 ml 640 ml 400 ml BalanceBalance 680 ml 640 ml 400 ml Constitutional: alert, well developed Psych: nl mood/affect Head: atraumatic Eyes: nl lids, nl sclera ENMT: nl external ears & nose Neck: non-tender Respiratory: clear to auscultation Cardiovascular: nl pulses, other (s1s2) Gastrointestinal: soft, non-tender Musculoskeletal: range of motion Extremities: normal pulses Neurological: nl speech Results Results 24hrs Laboratory Tests Test 02/25/19 17:09 02/25/19 20:38 02/26/19 08:24 02/26/19 12:30 Bedside Glucose 98 180 106 129 Medications Medication Current Medications Ipratropium [place] (Atrovent Hfa) 4 puff Q2H RESP THERAPY PRN INH SHORTNESS OF BREATH; Start 01/17/19 at 00:00 Acetaminophen (Tylenol Liquid) 650 mg Q6H PRN PO PAIN LEVEL 1-3 OR FEVER; Start 01/17/19 at 00:00 Miscellaneous Information 1 ea NOTE XX ; Start 01/17/19 at 11:00 Glucose (Glutose) 15 gm Q15M PRN PO DECREASED GLUCOSE; Start 01/17/19 at 11:00 Glucose (Glutose) 22.5 gm Q15M PRN PO DECREASED GLUCOSE; Start 01/17/19 at 11:00 Dextrose (D50w Syringe) 25 ml Q15M PRN IV DECREASED GLUCOSE; Start 01/17/19 at 11:00 Dextrose (D50w Syringe) 50 ml Q15M PRN IV DECREASED GLUCOSE; Start 01/17/19 at 11:00 Glucagon (Glucagen) 1 mg Q15M PRN IM DECREASED GLUCOSE; Start 01/17/19 at 11:00 Glucose (Glutose) 15 gm Q15M PRN BUCCAL DECREASED GLUCOSE; Start 01/17/19 at 11:00 Collagenase (Santyl) 1 applic DAILY TOP Last administered on 02/26/19 08:29; Admin Dose 1 APPLIC; Start 01/17/19 at 17:00 Carvedilol (Coreg) 3.125 mg BID PO Last administered on 02/26/19 08:29; Admin Dose 3.125 MG; Start 01/21/19 at 09:00 Nystatin (Nystatin Powder) 1 applic BID TOP Last administered on 02/26/19 08:30; Admin Dose 1 APPLIC; Start 01/27/19 at 21:00 Sodium Hypochlorite (Dakins Diluted ()) 1 applic DAILY TP Last administered on 02/26/19 08:30; Admin Dose 1 APPLIC; Start 01/28/19 at 09:40 Citalopram Hydrobromide (Celexa) 10 mg DAILY PO Last administered on 02/26/19 08:29; Admin Dose 10 MG; Start 01/30/19 at 09:00 Insulin Aspart (Novolog Insulin Pen) NOVOLOG *MILD* ALGORITHM WITH MEALS BEDTIME SC Last administered on 02/24/19at 12:39; Admin Dose 1 UNIT; Start 01/30/19 at 08:00 Baclofen (Lioresal) 5 mg TID PO Last administered on 02/26/19 12:28; Admin Dose 5 MG; Start 02/01/19 at 21:00 Lorazepam (Ativan) 0.5 mg Q8H PRN PO ANXIETY Last administered on 02/26/19 08:28; Admin Dose 0.5 MG; Start 02/02/19 at 12:00 Oxycodone/ Acetaminophen (Percocet (5/ 325)) 1 tab Q6H PRN PO MODERATE PAIN LEVEL 4-6 Last administered on 02/26/19 12:29; Admin Dose 1 TAB; Start 02/07/19 at 14:30 Diazepam (Valium) 2 mg TID PRN PO anxiety Last administered on 02/25/19 16:56; Admin Dose 2 MG; Start 02/11/19 at 13:00 Clonidine (Catapres) 0.1 mg Q8H PRN PO SBP>170; Start 02/19/19 at 11:30 Miscellaneous Information (*Order Clarification Bulletin) MEDICATION REQUIRES CLARIFICATION:PLE... Q8H XX ; Start 02/20/19 at 09:30 Miscellaneous Information (*Order Clarification Bulletin) PLEASE CLARIFY WITH MD... Q8H XX ; Start 02/21/19 at 11:00 Polyethylene Glycol (Miralax) 17 gm DAILY PRN PO CONSTIPATION Last administered on 02/25/19 17:10; Admin Dose 17 GM; Start 02/25/19 at 13:00 SHELBIE MARTINES February 26, 2019 12:59
[2019-02-26 14:01] VITALS: BP 141/88; PULSE 65; RESP 18
--- NOTE | 2019-02-26 14:24 | PN ---
Date/Time of Note Date/Time of Note DATE: 02/26/19 TIME: 14:23 Assessment/Plan Lines/Catheters IV Catheter Type (from [facility]): Peripheral IV Valadez in Place (from [facility]): No Assessment/Plan Chief Complaint/Hosp Course 1. Multiple wounds: + Wound cultures; wounds continuing to heal -Continue local care? same tx -frequent turning and off-loading -low air loss mattress -vitamin c -short term zinc -optimize nutrition -abx per ID -Debridement as needed > Patient refused 2. Pneumoperitoneum with likely perforation of the bladder. Previously family did not consent to proceeding to surgery and she significantly improved with conservative treatments and extubated; CT cystogram noted without contrast leak. -Diet as tolerated -DC okay from surgical standpoint. Will need urology follow-up 3. Hypochromic anemia: Status post PRBC transfusion, H&H stable -Monitor and transfuse as needed 4. UTI: -abx per sensitivity -frequent bladder emptying/cath care 5. Transaminitis: Likely 2/2 #5 -Trend 6. NSTEMI: -Cardiac optimization>defer to cards 7. Possible left knee effusion -Per medical team; consider Ortho consult 8. Anxiety: Currently on Ativan -Psych optimization Thank you. Patient seen and examined in collaboration with Dr. Osei Sanford. Subjective 24 Hr Interval Summary No acute events. No fevers, chills, sob, congested cough, cp, palpitations, keita, dizziness, n/v/d/dysuria, excessive wound drainage/odor. Exam/Review of Systems Vital Signs Vitals Vital Signs Date Temp Pulse Resp B/P (MAP) Pulse Ox O2 O2 Flow FiO2 Time Delivery Rate 02/26/19 97.8 65 18 141/88 95 14:01 (105) 02/24/19 Room Air 13:33 Intake and Output 02/25/19 02/25/19 02/26/19 1515:00 23:00 07:00 IntakeIntake Total 680 ml 640 ml 400 ml BalanceBalance 680 ml 640 ml 400 ml Exam Free Text/Dictation Constitutional: NAD, well developed; somnolent Psych: nl mood Head: normocephalic, atraumatic Eyes: nl conjunctiva, EOMI, nl lids, nl sclera ENMT: nl external ears & nose, no nl lips & teeth (poor dentition), mucosa pink and moist Neck: supple, non-tender; No jvd Respiratory: normal air movement; No congested cough, No labored breathing Cardiovascular: regular rate and rhythm, nl pulses; No edema Gastrointestinal: soft, non-distended, min tender, no rebound Genitourinary - Female: nl external genitalia Musculoskeletal: nl extremities to inspection, Extremities: normal pulses Neurological: nl speech, no normal strength (generalized weakness) Skin: No rash or lesions, left hip wound: packed, scant drainage; sacral wound: Packed, scant drainage Lymph: nl lymph nodes MASSIMO WATKINS NP February 26, 2019 14:24
[2019-02-26] MEDS: POLYETHYLENE GLYCOL 17 GM PACKET PO SCH ×2 (14:30→20:58)
[2019-02-26] MEDS: DOCUSATE SODIUM 100 MG CAP PO SCH ×2 (14:30→20:57)
--- NOTE | 2019-02-26 15:43 | PN ---
Date/Time of Note Date/Time of Note DATE: 02/26/19 TIME: 15:42 Assessment/Plan VTE Prophylaxis Risk score (from Nsg)>0 risk: 6 SCD applied (from Nsg): Yes Pharmacological prophylaxis: heparin Lines/Catheters IV Catheter Type (from Nrsg): Peripheral IV Urinary Cath still in place: No Assessment/Plan Hospital Course EXAM: Well appearing, in NAD, Aox3 RRR CTAB Soft nt nd Contracted LEs L hip pressure ulcer 59 yo female with chronic debility and leg weakness who presented with sepsis, severe anemia, and perforated viscus Perforated viscus: - conservative management per surgery - resolved Hip OM: - s/p Abx course per ID Macrocytic anemia secondary to elevated reticulocyte count - Status post 4 units of packed red blood cells - stable Iron deficiency: - s/p IV iron Acute kidney injury secondary to severe septic shock - Renal function improved to baseline B/l LE weakness: - PT/OT Anxiety: - Valium TID PRN Prophylaxis: SCDs, Protonix Discharge planning; To SNF when accepted. Antibiotics are completed. Alternatively could return to previous living situation if family is willing to accept Results 24hrs Laboratory Tests Test 02/25/19 17:09 02/25/19 20:38 02/26/19 08:24 02/26/19 12:30 Bedside Glucose 98 180 106 129 Subjective 24 Hr Interval Summary Free Text/Dictation Having constipation Otherwise stable Exam/Review of Systems Exam Vitals Vital Signs Date Temp Pulse Resp B/P (MAP) Pulse Ox O2 O2 Flow FiO2 Time Delivery Rate 02/26/19 97.8 65 18 141/88 95 14:01 (105) 02/24/19 Room Air 13:33 Intake and Output 02/25/19 02/25/19 02/26/19 1515:00 23:00 07:00 IntakeIntake Total 680 ml 640 ml 400 ml BalanceBalance 680 ml 640 ml 400 ml Results Results 24hrs Laboratory Tests Test 02/25/19 17:09 02/25/19 20:38 02/26/19 08:24 02/26/19 12:30 Bedside Glucose 98 180 106 129 Medications Medication Current Medications Ipratropium [place] (Atrovent Hfa) 4 puff Q2H RESP THERAPY PRN INH SHORTNESS OF BREATH; Start 01/17/19 at 00:00 Acetaminophen (Tylenol Liquid) 650 mg Q6H PRN PO PAIN LEVEL 1-3 OR FEVER; Start 01/17/19 at 00:00 Miscellaneous Information 1 ea NOTE XX ; Start 01/17/19 at 11:00 Glucose (Glutose) 15 gm Q15M PRN PO DECREASED GLUCOSE; Start 01/17/19 at 11:00 Glucose (Glutose) 22.5 gm Q15M PRN PO DECREASED GLUCOSE; Start 01/17/19 at 11:00 Dextrose (D50w Syringe) 25 ml Q15M PRN IV DECREASED GLUCOSE; Start 01/17/19 at 11:00 Dextrose (D50w Syringe) 50 ml Q15M PRN IV DECREASED GLUCOSE; Start 01/17/19 at 11:00 Glucagon (Glucagen) 1 mg Q15M PRN IM DECREASED GLUCOSE; Start 01/17/19 at 11:00 Glucose (Glutose) 15 gm Q15M PRN BUCCAL DECREASED GLUCOSE; Start 01/17/19 at 11:00 Collagenase (Santyl) 1 applic DAILY TOP Last administered on 02/26/19 08:29; Admin Dose 1 APPLIC; Start 01/17/19 at 17:00 Carvedilol (Coreg) 3.125 mg BID PO Last administered on 02/26/19 08:29; Admin Dose 3.125 MG; Start 01/21/19 at 09:00 Nystatin (Nystatin Powder) 1 applic BID TOP Last administered on 02/26/19 08:30; Admin Dose 1 APPLIC; Start 01/27/19 at 21:00 Sodium Hypochlorite (Dakins Diluted ()) 1 applic DAILY TP Last administered on 02/26/19 08:30; Admin Dose 1 APPLIC; Start 01/28/19 at 09:40 Citalopram Hydrobromide (Celexa) 10 mg DAILY PO Last administered on 02/26/19 08:29; Admin Dose 10 MG; Start 01/30/19 at 09:00 Insulin Aspart (Novolog Insulin Pen) NOVOLOG *MILD* ALGORITHM WITH MEALS BEDTIME SC Last administered on 02/24/19 12:39; Admin Dose 1 UNIT; Start 01/30/19 at 08:00 Baclofen (Lioresal) 5 mg TID PO Last administered on 02/26/19 12:28; Admin Dose 5 MG; Start 02/01/19 at 21:00 Lorazepam (Ativan) 0.5 mg Q8H PRN PO ANXIETY Last administered on 02/26/19 08:28; Admin Dose 0.5 MG; Start 02/02/19 at 12:00 Oxycodone/ Acetaminophen (Percocet (5/ 325)) 1 tab Q6H PRN PO MODERATE PAIN LEVEL 4-6 Last administered on 02/26/19at 12:29; Admin Dose 1 TAB; Start 02/07/19 at 14:30 Diazepam (Valium) 2 mg TID PRN PO anxiety Last administered on 02/25/19at 16:56; Admin Dose 2 MG; Start 02/11/19 at 13:00 Clonidine (Catapres) 0.1 mg Q8H PRN PO SBP>170; Start 02/19/19 at 11:30 Miscellaneous Information (*Order Clarification Bulletin) MEDICATION REQUIRES CLARIFICATION:PLE... Q8H XX ; Start 02/20/19 at 09:30 Miscellaneous Information (*Order Clarification Bulletin) PLEASE CLARIFY WITH MD... Q8H XX ; Start 02/21/19 at 11:00 Polyethylene Glycol (Miralax) 17 gm DAILY PRN PO CONSTIPATION Last administered on 02/25/19at 17:10; Admin Dose 17 GM; Start 02/25/19 at 13:00 Polyethylene Glycol (Miralax) 17 gm BID PO ; Start 02/26/19 at 14:30 Docusate Sodium (Colace) 100 mg BID PO ; Start 02/26/19 at 14:30 SONAL ALBERT MD February 26, 2019 15:42
[2019-02-26 20:00] VITALS: BP 124/81; PULSE 79; RESP 17
[2019-02-26] MEDS: DIAZEPAM 2 MG TAB PO PRN (20:49)
[2019-02-27 02:00] VITALS: BP 130/74; PULSE 62; RESP 17
[2019-02-27] MEDS: OXYCODONE/ACETAMINOPHEN (5/325) TAB PO PRN ×3 (05:33→18:08)
[2019-02-27 07:34] VITALS: BP 129/70; PULSE 58; RESP 17
[2019-02-27] MEDS: DOCUSATE SODIUM 100 MG CAP PO SCH ×3 (07:54→20:24)
[2019-02-27] MEDS: POLYETHYLENE GLYCOL 17 GM PACKET PO SCH ×2 (07:55→20:26)
[2019-02-27] MEDS: INSULIN ASPART [NOVOLOG] 3 ML PEN SC SCH ×4 (08:00→20:30)
[2019-02-27] MEDS: BACLOFEN 10 MG TAB PO SCH ×3 (08:10→20:24)
[2019-02-27] MEDS: CITALOPRAM 20 MG TAB PO SCH (08:10)
[2019-02-27] MEDS: COLLAGENASE 5 GM (UD JAR) TOP SCH (08:10)
[2019-02-27] MEDS: DAKINS 0.0125%(1/40) 473 ML SOLUTION TP SCH (08:11)
[2019-02-27] MEDS: NYSTATIN 30 GM POWDER BTL TOP SCH ×2 (08:11→20:27)
[2019-02-27] MEDS: BALSAM PERU/CASTOR OIL 60 GM TUBE TOP SCH ×2 (08:11→20:26)
--- NOTE | 2019-02-27 13:49 | CONS ---
Assessment/Plan Assessment/Plan Assessment/Plan (Daily) #Anemia -patient's initial Hg of 2.6 was likely secondary to GIB and perforated viscous. Stool ob at that time was negative. -anemia panel is consistent with iron deficiency -s/p Ferrlecit 125 mg IV x 5 days completed 01/30. Hg stable > 9. last checked on 02/19 #Sepsis -2/2 UTI and wound infection -now off antibiotics #Perforated viscous -continue conservative management per surgery -pt is now stable #JACKIE -renal following -Creatine came down to 1.16 Patient seen in collaboration with Dr Laura. dw staff Consultation Date/Type/Reason Admit Date/Time Jan 16, 2019 at 23:33 Initial Consult Date 01/25/19 Type of Consult Hematology/oncology Requesting Provider: ALLISON WOLFF Date/Time of Note DATE: 02/27/19 TIME: 13:48 24 HR Interval Summary Free Text/Dictation resting in bed seems comfortable possible discharge a m no new events reported last night Detailed Summary Eyes: no complaints ENT: no complaints Respiratory: no complaints Cardiovascular: no complaints Gastrointestinal: no complaints Genitourinary: no complaints Musculoskeletal: bone/joint pain, restricted range of motion Skin: no complaints Neurologic: no complaints Endocrine: no complaints Lymphatic: no complaints Psychological: nl mood/affect Exam/Review of Systems Exam Vitals Vital Signs Date Temp Pulse Resp B/P (MAP) Pulse Ox O2 O2 Flow FiO2 Time Delivery Rate 02/27/19 98.1 58 17 129/70 93 07:34 (89) 02/24/19 Room Air 13:33 Intake and Output 02/26/19 02/26/19 02/27/19 1515:00 23:00 07:00 IntakeIntake Total 720 ml 240 ml 480 ml BalanceBalance 720 ml 240 ml 480 ml Constitutional: alert, well developed Psych: nl mood/affect Head: normocephalic Eyes: nl lids, nl sclera ENMT: nl external ears & nose Neck: non-tender Respiratory: clear to auscultation Cardiovascular: nl pulses, other (s1s2) Gastrointestinal: soft, non-tender Musculoskeletal: muscle weakness Extremities: normal pulses Neurological: nl speech, other (alert/responsive) Results Result Diagram: 02/27/19 0655 02/27/19 0655 Results 24hrs Laboratory Tests Test 02/26/19 17:18 02/26/19 20:44 02/27/19 06:55 02/27/19 08:02 Bedside Glucose 153 84 128 White Blood Count 5.3 Red Blood Count 3.25 L Hemoglobin 9.6 L Hematocrit 29.7 L Mean Corpuscular Volume 91.4 Mean Corpuscular 29.5 Hemoglobin Mean Corpuscular 32.3 Hemoglobin Concent Red Cell Distribution 15.2 H Width Platelet Count 214 Mean Platelet Volume 10.1 Immature Granulocytes % 0.400 Neutrophils % 58.7 Lymphocytes % 27.0 Monocytes % 10.5 Eosinophils % 2.8 Basophils % 0.6 Nucleated Red Blood 0.0 Cells % Immature Granulocytes # 0.020 Neutrophils # 3.1 Lymphocytes # 1.4 Monocytes # 0.6 Eosinophils # 0.2 Basophils # 0.0 Nucleated Red Blood 0.0 Cells # Sodium Level 139 Potassium Level 3.9 Chloride Level 104 Carbon Dioxide Level 23 Anion Gap 12 Blood Urea Nitrogen 41 H Creatinine 0.99 Est Glomerular Filtrat 58 L Rate mL/min Glucose Level 128 Calcium Level 10.0 Test 02/27/19 12:18 Bedside Glucose 101 Medications Medication Current Medications Ipratropium [place] (Atrovent Hfa) 4 puff Q2H RESP THERAPY PRN INH SHORTNESS OF BREATH; Start 01/17/19 at 00:00 Acetaminophen (Tylenol Liquid) 650 mg Q6H PRN PO PAIN LEVEL 1-3 OR FEVER; Start 01/17/19 at 00:00 Miscellaneous Information 1 ea NOTE XX ; Start 01/17/19 at 11:00 Glucose (Glutose) 15 gm Q15M PRN PO DECREASED GLUCOSE; Start 01/17/19 at 11:00 Glucose (Glutose) 22.5 gm Q15M PRN PO DECREASED GLUCOSE; Start 01/17/19 at 11:00 Dextrose (D50w Syringe) 25 ml Q15M PRN IV DECREASED GLUCOSE; Start 01/17/19 at 11:00 Dextrose (D50w Syringe) 50 ml Q15M PRN IV DECREASED GLUCOSE; Start 01/17/19 at 11:00 Glucagon (Glucagen) 1 mg Q15M PRN IM DECREASED GLUCOSE; Start 01/17/19 at 11:00 Glucose (Glutose) 15 gm Q15M PRN BUCCAL DECREASED GLUCOSE; Start 01/17/19 at 11:00 Collagenase (Santyl) 1 applic DAILY TOP Last administered on 5/5/19at 08:10; Admin Dose 1 APPLIC; Start 01/17/19 at 17:00 Carvedilol (Coreg) 3.125 mg BID PO Last administered on 02/26/19 20:48; Admin Dose 3.125 MG; Start 01/21/19 at 09:00 Nystatin (Nystatin Powder) 1 applic BID TOP Last administered on 02/27/19 08:11; Admin Dose 1 APPLIC; Start 01/27/19 at 21:00 Sodium Hypochlorite (Dakins Diluted ()) 1 applic DAILY TP Last administered on 02/27/19 08:11; Admin Dose 1 APPLIC; Start 01/28/19 at 09:40 Citalopram Hydrobromide (Celexa) 10 mg DAILY PO Last administered on 02/27/19 08:10; Admin Dose 10 MG; Start 01/30/19 at 09:00 Insulin Aspart (Novolog Insulin Pen) NOVOLOG *MILD* ALGORITHM WITH MEALS BEDTIME SC Last administered on 02/26/19 17:21; Admin Dose 1 UNIT; Start 01/30 at 08:00 Baclofen (Lioresal) 5 mg TID PO Last administered on 02/27/19 12:16; Admin Dose 5 MG; Start 02/01/19 at 21:00 Lorazepam (Ativan) 0.5 mg Q8H PRN PO ANXIETY Last administered on 02/26/19 1 7:23; Admin Dose 0.5 MG; Start 02/02/19 at 12:00 Oxycodone/ Acetaminophen (Percocet (5/ 325)) 1 tab Q6H PRN PO MODERATE PAIN LEVEL 4-6 Last administered on 02/27/19 12:15; Admin Dose 1 TAB; Start 02/07/19 at 14:30 Diazepam (Valium) 2 mg TID PRN PO anxiety Last administered on 02/26/19 20:49; Admin Dose 2 MG; Start 02/11/19 at 13:00 Clonidine (Catapres) 0.1 mg Q8H PRN PO SBP>170; Start 02/19/19 at 11:30 Miscellaneous Information (*Order Clarification Bulletin) MEDICATION REQUIRES CLARIFICATION:PLE... Q8H XX ; Start 02/20/19 at 09:30 Polyethylene Glycol (Miralax) 17 gm DAILY PRN PO CONSTIPATION Last administered on 02/25/19at 17:10; Admin Dose 17 GM; Start 02/25/19 at 13:00 Polyethylene Glycol (Miralax) 17 gm BID PO ; Start 02/26/19 at 14:30 Docusate Sodium (Colace) 100 mg BID PO Last administered on 02/27/19at 08:09; Admin Dose 100 MG; Start 02/26/19 at 14:30 SHELBIE MARTINES February 27, 2019 13:49
[2019-02-27 14:15] VITALS: BP 125/74; PULSE 65; RESP 17
--- NOTE | 2019-02-27 15:15 | PN ---
Date/Time of Note Date/Time of Note DATE: 02/27/19 TIME: 15:15 Assessment/Plan VTE Prophylaxis Risk score (from Ns)>0 risk: 6 SCD applied (from Ns): Yes Pharmacological prophylaxis: heparin Lines/Catheters IV Catheter Type (from Nrs): Peripheral IV Urinary Cath still in place: No Assessment/Plan Hospital Course EXAM: Well appearing, in NAD, Aox3 RRR CTAB Soft nt nd Contracted LEs L hip pressure ulcer 59 yo female with chronic debility and leg weakness who presented with sepsis, severe anemia, and perforated viscus Perforated viscus: - conservative management per surgery - resolved Hip OM: - s/p Abx course per ID Macrocytic anemia secondary to elevated reticulocyte count - Status post 4 units of packed red blood cells - stable Iron deficiency: - s/p IV iron Acute kidney injury secondary to severe septic shock - Renal function improved to baseline B/l LE weakness: - PT/OT Anxiety: - Valium TID PRN Prophylaxis: SCDs, Protonix Discharge planning; To SNF when accepted. Antibiotics are completed. Alternatively could return to previous living situation if family is willing to accept Result Diagram: 02/27/19 0655 02/27/19 0655 Results 24hrs Laboratory Tests Test 02/26/19 17:18 02/26/19 20:44 02/27/19 06:55 02/27/19 08:02 Bedside Glucose 153 84 128 White Blood Count 5.3 Red Blood Count 3.25 L Hemoglobin 9.6 L Hematocrit 29.7 L Mean Corpuscular Volume 91.4 Mean Corpuscular 29.5 Hemoglobin Mean Corpuscular 32.3 Hemoglobin Concent Red Cell Distribution 15.2 H Width Platelet Count 214 Mean Platelet Volume 10.1 Immature Granulocytes % 0.400 Neutrophils % 58.7 Lymphocytes % 27.0 Monocytes % 10.5 Eosinophils % 2.8 Basophils % 0.6 Nucleated Red Blood 0.0 Cells % Immature Granulocytes # 0.020 Neutrophils # 3.1 Lymphocytes # 1.4 Monocytes # 0.6 Eosinophils # 0.2 Basophils # 0.0 Nucleated Red Blood 0.0 Cells # Sodium Level 139 Potassium Level 3.9 Chloride Level 104 Carbon Dioxide Level 23 Anion Gap 12 Blood Urea Nitrogen 41 H Creatinine 0.99 Est Glomerular Filtrat 58 L Rate mL/min Glucose Level 128 Calcium Level 10.0 Test 02/27/19 12:18 Bedside Glucose 101 Subjective 24 Hr Interval Summary Free Text/Dictation Had BM. Constipation resolved Exam/Review of Systems Exam Vitals Vital Signs Date Temp Pulse Resp B/P (MAP) Pulse Ox O2 O2 Flow FiO2 Time Delivery Rate 02/27/19 98.0 65 17 125/74 95 14:15 (91) 02/24/19 Room Air 13:33 Intake and Output 02/26/19 02/26/19 02/27/19 1515:00 23:00 07:00 IntakeIntake Total 720 ml 240 ml 480 ml BalanceBalance 720 ml 240 ml 480 ml Results Results 24hrs Laboratory Tests Test 02/26/19 17:18 02/26/19 20:44 02/27/19 06:55 02/27/19 08:02 Bedside Glucose 153 84 128 White Blood Count 5.3 Red Blood Count 3.25 L Hemoglobin 9.6 L Hematocrit 29.7 L Mean Corpuscular Volume 91.4 Mean Corpuscular 29.5 Hemoglobin Mean Corpuscular 32.3 Hemoglobin Concent Red Cell Distribution 15.2 H Width Platelet Count 214 Mean Platelet Volume 10.1 Immature Granulocytes % 0.400 Neutrophils % 58.7 Lymphocytes % 27.0 Monocytes % 10.5 Eosinophils % 2.8 Basophils % 0.6 Nucleated Red Blood 0.0 Cells % Immature Granulocytes # 0.020 Neutrophils # 3.1 Lymphocytes # 1.4 Monocytes # 0.6 Eosinophils # 0.2 Basophils # 0.0 Nucleated Red Blood 0.0 Cells # Sodium Level 139 Potassium Level 3.9 Chloride Level 104 Carbon Dioxide Level 23 Anion Gap 12 Blood Urea Nitrogen 41 H Creatinine 0.99 Est Glomerular Filtrat 58 L Rate mL/min Glucose Level 128 Calcium Level 10.0 Test 02/27/19 12:18 Bedside Glucose 101 Medications Medication Current Medications Ipratropium [place] (Atrovent Hfa) 4 puff Q2H RESP THERAPY PRN INH SHORTNESS OF BREATH; Start 01/17/19 at 00:00 Acetaminophen (Tylenol Liquid) 650 mg Q6H PRN PO PAIN LEVEL 1-3 OR FEVER; Start 01/17/19 at 00:00 Miscellaneous Information 1 ea NOTE XX ; Start 01/17/19 at 11:00 Glucose (Glutose) 15 gm Q15M PRN PO DECREASED GLUCOSE; Start 01/17/19 at 11:00 Glucose (Glutose) 22.5 gm Q15M PRN PO DECREASED GLUCOSE; Start 01/17/19 at 11:00 Dextrose (D50w Syringe) 25 ml Q15M PRN IV DECREASED GLUCOSE; Start 01/17/19 at 11:00 Dextrose (D50w Syringe) 50 ml Q15M PRN IV DECREASED GLUCOSE; Start 01/17/19 at 11:00 Glucagon (Glucagen) 1 mg Q15M PRN IM DECREASED GLUCOSE; Start 01/17/19 at 11:00 Glucose (Glutose) 15 gm Q15M PRN BUCCAL DECREASED GLUCOSE; Start 01/17/19 at 11:00 Collagenase (Santyl) 1 applic DAILY TOP Last administered on 02/27/19 08:10; Admin Dose 1 APPLIC; Start 01/17/19 at 17:00 Carvedilol (Coreg) 3.125 mg BID PO Last administered on 02/26/19 20:48; Admin Dose 3.125 MG; Start 01/21/19 at 09:00 Nystatin (Nystatin Powder) 1 applic BID TOP Last administered on 02/27/19 08:11; Admin Dose 1 APPLIC; Start 01/27/19 at 21:00 Sodium Hypochlorite (Dakins Diluted ()) 1 applic DAILY TP Last administered on 02/27/19 08:11; Admin Dose 1 APPLIC; Start 01/28/19 at 09:40 Citalopram Hydrobromide (Celexa) 10 mg DAILY PO Last administered on 02/27/19 08:10; Admin Dose 10 MG; Start 01/30/19 at 09:00 Insulin Aspart (Novolog Insulin Pen) NOVOLOG *MILD* ALGORITHM WITH MEALS BEDTIME SC Last administered on 02/26/19 17:21; Admin Dose 1 UNIT; Start 01/30/19 at 08:00 Baclofen (Lioresal) 5 mg TID PO Last administered on 02/27/19 12:16; Admin Dose 5 MG; Start 02/01/19 at 21:00 Lorazepam (Ativan) 0.5 mg Q8H PRN PO ANXIETY Last administered on 02/26/19 17:23; Admin Dose 0.5 MG; Start 02/02/19 at 12:00 Oxycodone/ Acetaminophen (Percocet (5/ 325)) 1 tab Q6H PRN PO MODERATE PAIN LEVEL 4-6 Last administered on 02/27/19 12:15; Admin Dose 1 TAB; Start 02/07/19 at 14:30 Diazepam (Valium) 2 mg TID PRN PO anxiety Last administered on 02/26/19 20:49; Admin Dose 2 MG; Start 02/11/19 at 13:00 Clonidine (Catapres) 0.1 mg Q8H PRN PO SBP>170; Start 02/19/19 at 11:30 Miscellaneous Information (*Order Clarification Bulletin) MEDICATION REQUIRES CLARIFICATION:PLE... Q8H XX ; Start 02/20/19 at 09:30 Polyethylene Glycol (Miralax) 17 gm DAILY PRN PO CONSTIPATION Last administered on 02/25/19 17:10; Admin Dose 17 GM; Start 02/25/19 at 13:00 Polyethylene Glycol (Miralax) 17 gm BID PO ; Start 02/26/19 at 14:30 Docusate Sodium (Colace) 100 mg BID PO Last administered on 02/27/19 08:09; Admin Dose 100 MG; Start 02/26/19 at 14:30 SONAL ALBERT MD February 27, 2019 15:15
[2019-02-27] MEDS: LORAZEPAM 0.5 MG TAB PO PRN (15:25)
--- NOTE | 2019-02-27 15:44 | PN ---
Date/Time of Note Date/Time of Note DATE: 02/27/19 TIME: 15:43 Assessment/Plan Lines/Catheters IV Catheter Type (from [facility]): Peripheral IV Valadez in Place (from [facility]): No Assessment/Plan Chief Complaint/Hosp Course 1. Multiple wounds: + Wound cultures; wounds continuing to heal -Continue local care> will change regimen today -frequent turning and off-loading -low air loss mattress -vitamin c -short term zinc -optimize nutrition -abx per ID -Debridement as needed 2. Pneumoperitoneum with likely perforation of the bladder. Previously family did not consent to proceeding to surgery and she significantly improved with conservative treatments and extubated; CT cystogram noted without contrast leak. -Diet as tolerated -DC okay from surgical standpoint. Will need urology follow-up 3. Hypochromic anemia: Status post PRBC transfusion, H&H stable -Monitor and transfuse as needed 4. UTI: -abx per sensitivity -frequent bladder emptying/cath care 5. Transaminitis: Likely 2/2 #5 -Trend 6. NSTEMI: -Cardiac optimization>defer to cards 7. Possible left knee effusion -Per medical team; consider Ortho consult 8. Anxiety: Currently on Ativan -Psych optimization Thank you. Patient seen and examined in collaboration with Dr. Osei Sanford. Subjective 24 Hr Interval Summary Refusing wound dressing changes today. No fevers, chills, sob, congested cough, cp, palpitations, keita, dizziness, nausea, vomiting, diarrhea, dysuria. Exam/Review of Systems Vital Signs Vitals Vital Signs Date Temp Pulse Resp B/P (MAP) Pulse Ox O2 O2 Flow FiO2 Time Delivery Rate 02/27/19 98.0 65 17 125/74 95 14:15 (91) 02/24/19 Room Air 13:33 Intake and Output 02/26/19 02/26/19 02/27/19 1515:00 23:00 07:00 IntakeIntake Total 720 ml 240 ml 480 ml BalanceBalance 720 ml 240 ml 480 ml Exam Free Text/Dictation Constitutional: NAD, well developed; somnolent Psych: nl mood Head: normocephalic, atraumatic Eyes: nl conjunctiva, EOMI, nl lids, nl sclera ENMT: nl external ears & nose, no nl lips & teeth (poor dentition), mucosa pink and moist Neck: supple, non-tender; No jvd Respiratory: normal air movement; No congested cough, No labored breathing Cardiovascular: regular rate and rhythm, nl pulses; No edema Gastrointestinal: soft, non-distended, min tender, no rebound Genitourinary - Female: nl external genitalia Musculoskeletal: nl extremities to inspection, Extremities: normal pulses Neurological: nl speech, no normal strength (generalized weakness) Skin: No rash or lesions, left hip wound: packed, scant drainage, granulating, no odor; sacral wound: Packed, scant drainage Lymph: nl lymph nodes Results Result Diagram: 02/27/19 0655 02/27/19 0655 MASSIMO WATKINS NP February 27, 2019 15:44
[2019-02-27 19:40] VITALS: BP 107/58; PULSE 73; RESP 17
[2019-02-28 02:15] VITALS: BP 146/67; PULSE 64; RESP 18
[2019-02-28] MEDS: OXYCODONE/ACETAMINOPHEN (5/325) TAB PO PRN ×3 (03:07→18:17)
[2019-02-28] MEDS: LORAZEPAM 0.5 MG TAB PO PRN ×2 (06:27→22:57)
[2019-02-28] MEDS: INSULIN ASPART [NOVOLOG] 3 ML PEN SC SCH ×4 (08:00→20:58)
[2019-02-28 08:13] VITALS: BP 152/78; PULSE 62; RESP 20
[2019-02-28] MEDS: COLLAGENASE 5 GM (UD JAR) TOP SCH (08:28)
[2019-02-28] MEDS: NYSTATIN 30 GM POWDER BTL TOP SCH (08:29)
[2019-02-28] MEDS: DAKINS 0.0125%(1/40) 473 ML SOLUTION TP SCH (08:30)
[2019-02-28] MEDS: BALSAM PERU/CASTOR OIL 60 GM TUBE TOP SCH ×2 (08:30→21:05)
[2019-02-28] MEDS: POLYETHYLENE GLYCOL 17 GM PACKET PO SCH ×2 (08:30→21:00)
[2019-02-28] MEDS: CITALOPRAM 20 MG TAB PO SCH (08:30)
[2019-02-28] MEDS: BACLOFEN 10 MG TAB PO SCH ×3 (08:31→21:03)
[2019-02-28] MEDS: DOCUSATE SODIUM 100 MG CAP PO SCH ×2 (08:31→21:04)
--- NOTE | 2019-02-28 10:16 | CONS ---
Assessment/Plan Assessment/Plan Hospital Course (Demo Recall) #Anemia -patient's initial Hg of 2.6 was likely secondary to GIB and perforated viscous. Stool ob at that time was negative. -anemia panel is consistent with iron deficiency -s/p Ferrlecit 125 mg IV x 5 days completed 01/30. Hg stable > 9. last checked on 02/19 #Sepsis -2/2 UTI and wound infection -now off antibiotics #Perforated viscous -continue conservative management per surgery -pt is now stable #JACKIE -renal following -Creatine came down to 1.16 Consultation Date/Type/Reason Admit Date/Time Jan 16, 2019 at 23:33 Initial Consult Date 01/25/19 Type of Consult hematology Reason for Consultation anemia Requesting Provider: ALLISON WOLFF Date/Time of Note DATE: 02/28/19 TIME: 10:11 24 HR Interval Summary Free Text/Dictation no acute overnight events Exam/Review of Systems Exam Vitals Vital Signs Date Temp Pulse Resp B/P (MAP) Pulse Ox O2 O2 Flow FiO2 Time Delivery Rate 02/28/19 98.0 62 20 152/78 98 Room Air 08:13 (102) Intake and Output 02/27/19 02/27/19 02/28/19 1515:00 23:00 07:00 IntakeIntake Total 480 ml 890 ml BalanceBalance 480 ml 890 ml Constitutional: alert Psych: no complaints Head: normocephalic Eyes: nl conjunctiva ENMT: nl external ears & nose Neck: supple Respiratory: clear to auscultation Cardiovascular: regular rate and rhythm Gastrointestinal: soft Musculoskeletal: nl extremities to inspection Results Result Diagram: 02/27/19 0655 02/27/19 0655 Results 24hrs Laboratory Tests Test 02/27/19 12:18 02/27/19 17:10 02/27/19 20:23 02/28/19 08:28 Bedside Glucose 101 92 205 114 Medications Medication Current Medications Ipratropium [place] (Atrovent Hfa) 4 puff Q2H RESP THERAPY PRN INH SHORTNESS OF BREATH; Start 01/17/19 at 00:00 Acetaminophen (Tylenol Liquid) 650 mg Q6H PRN PO PAIN LEVEL 1-3 OR FEVER; Start 01/17/19 at 00:00 Miscellaneous Information 1 ea NOTE XX ; Start 01/17/19 at 11:00 Glucose (Glutose) 15 gm Q15M PRN PO DECREASED GLUCOSE; Start 01/17/19 at 11:00 Glucose (Glutose) 22.5 gm Q15M PRN PO DECREASED GLUCOSE; Start 01/17/19 at 11:00 Dextrose (D50w Syringe) 25 ml Q15M PRN IV DECREASED GLUCOSE; Start 01/17/19 at 11:00 Dextrose (D50w Syringe) 50 ml Q15M PRN IV DECREASED GLUCOSE; Start 01/17/19 at 11:00 Glucagon (Glucagen) 1 mg Q15M PRN IM DECREASED GLUCOSE; Start 01/17/19 at 11:00 Glucose (Glutose) 15 gm Q15M PRN BUCCAL DECREASED GLUCOSE; Start 01/17/19 at 11:00 Collagenase (Santyl) 1 applic DAILY TOP Last administered on 02/28/19 08:28; Admin Dose 1 APPLIC; Start 01/17/19 at 17:00 Carvedilol (Coreg) 3.125 mg BID PO Last administered on 02/28/19 08:31; Admin Dose 3.125 MG; Start 01/21/19 at 09:00 Nystatin (Nystatin Powder) 1 applic BID TOP Last administered on 02/28/19 08:29; Admin Dose 1 APPLIC; Start 01/27/19 at 21:00 Sodium Hypochlorite (Dakins Diluted ()) 1 applic DAILY TP Last administered on 02/28/19 08:30; Admin Dose 1 APPLIC; Start 01/28/19 at 09:40 Citalopram Hydrobromide (Celexa) 10 mg DAILY PO Last administered on 02/28/19 08:30; Admin Dose 10 MG; Start 01/30/19 at 09:00 Insulin Aspart (Novolog Insulin Pen) NOVOLOG *MILD* ALGORITHM WITH MEALS BEDTIME SC Last administered on 02/27/19 20:30; Admin Dose 1 UNIT; Start 01/30/19 at 08:00 Baclofen (Lioresal) 5 mg TID PO Last administered on 02/28/19 08:31; Admin Dose 5 MG; Start 02/01/19 at 21:00 Lorazepam (Ativan) 0.5 mg Q8H PRN PO ANXIETY Last administered on 02/28/19 06:27; Admin Dose 0.5 MG; Start 02/02/19 at 12:00 Oxycodone/ Acetaminophen (Percocet (5/ 325)) 1 tab Q6H PRN PO MODERATE PAIN LEVEL 4-6 Last administered on 02/28/19at 03:07; Admin Dose 1 TAB; Start 02/07/19 at 14:30 Diazepam (Valium) 2 mg TID PRN PO anxiety Last administered on 02/26/19at 20:49; Admin Dose 2 MG; Start 02/11/19 at 13:00 Clonidine (Catapres) 0.1 mg Q8H PRN PO SBP>170; Start 02/19/19 at 11:30 Miscellaneous Information (*Order Clarification Bulletin) MEDICATION REQUIRES CLARIFICATION:PLE... Q8H XX ; Start 02/20/19 at 09:30 Polyethylene Glycol (Miralax) 17 gm DAILY PRN PO CONSTIPATION Last administered on 02/25/19at 17:10; Admin Dose 17 GM; Start 02/25/19 at 13:00 Polyethylene Glycol (Miralax) 17 gm BID PO ; Start 02/26/19 at 14:30 Docusate Sodium (Colace) 100 mg BID PO Last administered on 02/28/19 08:31; Admin Dose 100 MG; Start 02/26/19 at 14:30 RAJI DIXON M.D. February 28, 2019 10:16
--- NOTE | 2019-02-28 11:06 | PN ---
Date/Time of Note Date/Time of Note DATE: 02/28/19 TIME: 11:02 Assessment/Plan Lines/Catheters IV Catheter Type (from [facility]): Peripheral IV Valadez in Place (from [facility]): No Assessment/Plan Chief Complaint/Hosp Course 1. Multiple wounds: + Wound cultures; wounds continuing to heal -Continue local care> will change regimen today -frequent turning and off-loading -low air loss mattress -vitamin c -short term zinc -optimize nutrition -abx per ID -Debridement as needed 2. Pneumoperitoneum with likely perforation of the bladder. Previously family did not consent to proceeding to surgery and she significantly improved with conservative treatments and extubated; CT cystogram noted without contrast leak. -Diet as tolerated -DC okay from surgical standpoint. Will need urology follow-up 3. Hypochromic anemia: Status post PRBC transfusion, H&H stable -Monitor and transfuse as needed 4. UTI: -abx per sensitivity -frequent bladder emptying/cath care 5. Transaminitis: Likely 2/2 #5 -Trend 6. NSTEMI: -Cardiac optimization>defer to cards 7. Possible left knee effusion -Per medical team; consider Ortho consult 8. Anxiety: Currently on Ativan -Psych optimization Thank you Subjective 24 Hr Interval Summary Refusing treatments at times. No fevers, chills, sob, congested cough, cp, palpitations, keita, dizziness, nausea, vomiting, diarrhea, dysuria. Exam/Review of Systems Vital Signs Vitals Vital Signs Date Temp Pulse Resp B/P (MAP) Pulse Ox O2 O2 Flow FiO2 Time Delivery Rate 02/28/19 98.0 62 20 152/78 98 Room Air 08:13 (102) Intake and Output 02/27/19 02/27/19 02/28/19 1515:00 23:00 07:00 IntakeIntake Total 480 ml 890 ml BalanceBalance 480 ml 890 ml Exam Free Text/Dictation Constitutional: NAD, well developed; somnolent Psych: nl mood Head: normocephalic, atraumatic Eyes: nl conjunctiva, EOMI, nl lids, nl sclera ENMT: nl external ears & nose, no nl lips & teeth (poor dentition), mucosa pink and moist Neck: supple, non-tender; No jvd Respiratory: normal air movement; No congested cough, No labored breathing Cardiovascular: regular rate and rhythm, nl pulses; No edema Gastrointestinal: soft, non-distended, min tender, no rebound Genitourinary - Female: nl external genitalia Musculoskeletal: nl extremities to inspection, Extremities: normal pulses Neurological: nl speech, no normal strength (generalized weakness) Skin: No rash or lesions, left hip wound: packed, scant drainage, granulating, no odor; sacral wound: Packed, scant drainage Lymph: nl lymph nodes Results Result Diagram: 02/27/19 0655 02/27/19 0655 ALEK HANDLEY MD February 28, 2019 11:06
[2019-02-28 13:35] VITALS: BP 122/73; PULSE 64; RESP 18
--- NOTE | 2019-02-28 14:46 | PN ---
Date/Time of Note Date/Time of Note DATE: 02/28/19 TIME: 14:45 Assessment/Plan VTE Prophylaxis Risk score (from Nsg)>0 risk: 6 Pharmacological prophylaxis: NA/contraindicated Pharm contraindication: other Lines/Catheters IV Catheter Type (from Nrsg): Peripheral IV Urinary Cath still in place: No Assessment/Plan Hospital Course 59 yo female with chronic debility and leg weakness who presented with sepsis, severe anemia, and perforated viscus Perforated viscus: - conservative management per surgery - resolved Hip OM: - s/p Abx course per ID Macrocytic anemia secondary to elevated reticulocyte count - Status post 4 units of packed red blood cells - stable Iron deficiency: - s/p IV iron Acute kidney injury secondary to severe septic shock - Renal function improved to baseline B/l LE weakness: - PT/OT Anxiety: - Valium TID PRN Prophylaxis: SCDs, Protonix Discharge planning; To SNF when accepted. Antibiotics are completed. Alternatively could return to previous living situation if family is willing to accept Result Diagram: 02/27/19 0655 02/27/19 0655 Results 24hrs Laboratory Tests Test 02/27/19 17:10 02/27/19 20:23 02/28/19 08:28 02/28/19 12:18 Bedside Glucose 92 205 114 157 Subjective 24 Hr Interval Summary Constitutional: no complaints Exam/Review of Systems Exam Vitals Vital Signs Date Temp Pulse Resp B/P (MAP) Pulse Ox O2 O2 Flow FiO2 Time Delivery Rate 02/28/19 98.2 64 18 122/73 97 Room Air 13:35 (89) Intake and Output 02/27/19 02/27/19 02/28/19 1515:00 23:00 07:00 IntakeIntake Total 480 ml 890 ml BalanceBalance 480 ml 890 ml Constitutional: alert, oriented Respiratory: clear to auscultation Cardiovascular: regular rate and rhythm Gastrointestinal: soft; No distended Musculoskeletal: nl extremities to inspection Results Results 24hrs Laboratory Tests Test 02/27/19 17:10 02/27/19 20:23 02/28/19 08:28 02/28/19 12:18 Bedside Glucose 92 205 114 157 Medications Medication Current Medications Ipratropium [place] (Atrovent Hfa) 4 puff Q2H RESP THERAPY PRN INH SHORTNESS OF BREATH; Start 01/17/19 at 00:00 Acetaminophen (Tylenol Liquid) 650 mg Q6H PRN PO PAIN LEVEL 1-3 OR FEVER; Start 01/17/19 at 00:00 Miscellaneous Information 1 ea NOTE XX ; Start 01/17/19 at 11:00 Glucose (Glutose) 15 gm Q15M PRN PO DECREASED GLUCOSE; Start 01/17/19 at 11:00 Glucose (Glutose) 22.5 gm Q15M PRN PO DECREASED GLUCOSE; Start 01/17/19 at 11:00 Dextrose (D50w Syringe) 25 ml Q15M PRN IV DECREASED GLUCOSE; Start 01/17/19 at 11:00 Dextrose (D50w Syringe) 50 ml Q15M PRN IV DECREASED GLUCOSE; Start 01/17/19 at 11:00 Glucagon (Glucagen) 1 mg Q15M PRN IM DECREASED GLUCOSE; Start 01/17/19 at 11:00 Glucose (Glutose) 15 gm Q15M PRN BUCCAL DECREASED GLUCOSE; Start 01/17/19 at 11:00 Collagenase (Santyl) 1 applic DAILY TOP Last administered on 02/28/19 08:28; Admin Dose 1 APPLIC; Start 01/17/19 at 17:00 Carvedilol (Coreg) 3.125 mg BID PO Last administered on 02/28/19 08:31; Admin Dose 3.125 MG; Start 01/21/19 at 09:00 Nystatin (Nystatin Powder) 1 applic BID TOP Last administered on 02/28/19 08:29; Admin Dose 1 APPLIC; Start 01/27/19 at 21:00 Sodium Hypochlorite (Dakins Diluted (40)) 1 applic DAILY TP Last administered on 02/28/19 08:30; Admin Dose 1 APPLIC; Start 01/28/19 at 09:40 Citalopram Hydrobromide (Celexa) 10 mg DAILY PO Last administered on 02/28/19 08:30; Admin Dose 10 MG; Start 01/30/19 at 09:00 Insulin Aspart (Novolog Insulin Pen) NOVOLOG *MILD* ALGORITHM WITH MEALS BEDTIME SC Last administered on 02/28/19 12:51; Admin Dose 1 UNIT; Start 01/30/19 at 08:00 Baclofen (Lioresal) 5 mg TID PO Last administered on 02/28/19 12:15; Admin Dose 5 MG; Start 02/01/19 at 21:00 Lorazepam (Ativan) 0.5 mg Q8H PRN PO ANXIETY Last administered on 02/28/19 06:27; Admin Dose 0.5 MG; Start 02/02/19 at 12:00 Oxycodone/ Acetaminophen (Percocet (5/ 325)) 1 tab Q6H PRN PO MODERATE PAIN LEVEL 4-6 Last administered on 02/28/19 12:15; Admin Dose 1 TAB; Start 02/07/19 at 14:30 Diazepam (Valium) 2 mg TID PRN PO anxiety Last administered on 02/26/19 20:49; Admin Dose 2 MG; Start 02/11/19 at 13:00 Clonidine (Catapres) 0.1 mg Q8H PRN PO SBP>170; Start 02/19/19 at 11:30 Miscellaneous Information (*Order Clarification Bulletin) MEDICATION REQUIRES CLARIFICATION:PLE... Q8H XX ; Start 02/20/19 at 09:30 Polyethylene Glycol (Miralax) 17 gm DAILY PRN PO CONSTIPATION Last administered on 02/25/19at 17:10; Admin Dose 17 GM; Start 02/25/19 at 13:00 Polyethylene Glycol (Miralax) 17 gm BID PO ; Start 02/26/19 at 14:30 Docusate Sodium (Colace) 100 mg BID PO Last administered on 02/28/19 08:31; Admin Dose 100 MG; Start 02/26/19 at 14:30 ALLISON WOLFF February 28, 2019 14:46
[2019-02-28] MEDS: DIAZEPAM 2 MG TAB PO PRN (15:18)
[2019-02-28 20:01] VITALS: BP 138/79; PULSE 65; RESP 18
[2019-03-01] MEDS: OXYCODONE/ACETAMINOPHEN (5/325) TAB PO PRN ×4 (00:18→18:35)
[2019-03-01 02:30] VITALS: BP 138/80; PULSE 74; RESP 18
[2019-03-01 07:58] VITALS: BP 138/74; PULSE 60; RESP 18
[2019-03-01] MEDS: DOCUSATE SODIUM 100 MG CAP PO SCH ×2 (08:50→20:48)
[2019-03-01] MEDS: CITALOPRAM 20 MG TAB PO SCH (08:50)
[2019-03-01] MEDS: INSULIN ASPART [NOVOLOG] 3 ML PEN SC SCH ×4 (08:50→21:00)
[2019-03-01] MEDS: DIAZEPAM 2 MG TAB PO PRN ×2 (08:51→20:48)
[2019-03-01] MEDS: BALSAM PERU/CASTOR OIL 60 GM TUBE TOP SCH ×2 (08:51→20:59)
[2019-03-01] MEDS: BACLOFEN 10 MG TAB PO SCH ×3 (08:51→20:48)
[2019-03-01] MEDS: COLLAGENASE 5 GM (UD JAR) TOP SCH (08:51)
[2019-03-01] MEDS: DAKINS 0.0125%(1/40) 473 ML SOLUTION TP SCH (08:52)
[2019-03-01] MEDS: POLYETHYLENE GLYCOL 17 GM PACKET PO SCH ×2 (09:00→21:00)
--- NOTE | 2019-03-01 10:10 | CONS ---
Assessment/Plan Assessment/Plan Hospital Course (Demo Recall) #Anemia -patient's initial Hg of 2.6 was likely secondary to GIB and perforated viscous. Stool ob at that time was negative. -anemia panel is consistent with iron deficiency -s/p Ferrlecit 125 mg IV x 5 days completed 01/30. Hg stable > 9. last checked on 02/19 #Sepsis -2/2 UTI and wound infection -now off antibiotics #Perforated viscous -continue conservative management per surgery -pt is now stable #JACKIE -renal following -Creatine came down to 1.16 Consultation Date/Type/Reason Admit Date/Time Jan 16, 2019 at 23:33 Initial Consult Date 01/25/19 Type of Consult hematology Reason for Consultation anemia Requesting Provider: ALLISON WOLFF Date/Time of Note DATE: 03/01/19 TIME: 10:09 24 HR Interval Summary Free Text/Dictation no acute overnight events Exam/Review of Systems Exam Vitals Vital Signs Date Temp Pulse Resp B/P (MAP) Pulse Ox O2 O2 Flow FiO2 Time Delivery Rate 03/01/19 97.8 60 18 138/74 96 Room Air 07:58 (95) Intake and Output 02/28/19 02/28/19 03/01/19 1515:00 23:00 07:00 IntakeIntake Total 1320 ml 360 ml BalanceBalance 1320 ml 360 ml Constitutional: alert, oriented Psych: depression Head: normocephalic Eyes: nl conjunctiva ENMT: nl external ears & nose Neck: supple Respiratory: clear to auscultation Cardiovascular: regular rate and rhythm Gastrointestinal: soft Musculoskeletal: nl extremities to inspection Results Result Diagram: 02/27/19 0655 02/27/19 0655 Results 24hrs Laboratory Tests Test 02/28/19 12:18 02/28/19 17:12 02/28/19 20:56 03/01/19 08:43 Bedside Glucose 157 162 150 170 Medications Medication Current Medications Ipratropium [place] (Atrovent Hfa) 4 puff Q2H RESP THERAPY PRN INH SHORTNESS OF BREATH; Start 01/17/19 at 00:00 Acetaminophen (Tylenol Liquid) 650 mg Q6H PRN PO PAIN LEVEL 1-3 OR FEVER; Start 01/17/19 at 00:00 Miscellaneous Information 1 ea NOTE XX ; Start 01/17/19 at 11:00 Glucose (Glutose) 15 gm Q15M PRN PO DECREASED GLUCOSE; Start 01/17/19 at 11:00 Glucose (Glutose) 22.5 gm Q15M PRN PO DECREASED GLUCOSE; Start 01/17/19 at 11:00 Dextrose (D50w Syringe) 25 ml Q15M PRN IV DECREASED GLUCOSE; Start 01/17/19 at 11:00 Dextrose (D50w Syringe) 50 ml Q15M PRN IV DECREASED GLUCOSE; Start 01/17/19 at 11:00 Glucagon (Glucagen) 1 mg Q15M PRN IM DECREASED GLUCOSE; Start 01/17/19 at 11:00 Glucose (Glutose) 15 gm Q15M PRN BUCCAL DECREASED GLUCOSE; Start 01/17/19 at 11:00 Collagenase (Santyl) 1 applic DAILY TOP Last administered on 03/01/19 08:51; Admin Dose 1 APPLIC; Start 01/17/19 at 17:00 Carvedilol (Coreg) 3.125 mg BID PO Last administered on 03/01/19 08:51; Admin Dose 3.125 MG; Start 01/21/19 at 09:00 Sodium Hypochlorite (Dakins Diluted ()) 1 applic DAILY TP Last administered on 03/01/19 08:52; Admin Dose 1 APPLIC; Start 01/28/19 at 09:40 Citalopram Hydrobromide (Celexa) 10 mg DAILY PO Last administered on 03/01/19 08:50; Admin Dose 10 MG; Start 01/30/19 at 09:00 Insulin Aspart (Novolog Insulin Pen) NOVOLOG *MILD* ALGORITHM WITH MEALS BEDTIME SC Last administered on 03/01/19 08:50; Admin Dose 1 UNIT; Start 01/30/19 at 08:00 Baclofen (Lioresal) 5 mg TID PO Last administered on 03/01/19 08:51; Admin Dose 5 MG; Start 02/01/19 at 21:00 Lorazepam (Ativan) 0.5 mg Q8H PRN PO ANXIETY Last administered on 02/28/19 22:57; Admin Dose 0.5 MG; Start 02/02/19 at 12:00 Oxycodone/ Acetaminophen (Percocet (5/ 325)) 1 tab Q6H PRN PO MODERATE PAIN LEVEL 4-6 Last administered on 5/7/19at 06:33; Admin Dose 1 TAB; Start 02/07/19 at 14:30 Diazepam (Valium) 2 mg TID PRN PO anxiety Last administered on 03/01/19 08:51; Admin Dose 2 MG; Start 02/11/19 at 13:00 Clonidine (Catapres) 0.1 mg Q8H PRN PO SBP>170; Start 02/19/19 at 11:30 Polyethylene Glycol (Miralax) 17 gm DAILY PRN PO CONSTIPATION Last administered on 02/25/19at 17:10; Admin Dose 17 GM; Start 02/25/19 at 13:00 Polyethylene Glycol (Miralax) 17 gm BID PO ; Start 02/26/19 at 14:30 Docusate Sodium (Colace) 100 mg BID PO Last administered on 03/01/19at 08:50; Admin Dose 100 MG; Start 02/26/19 at 14:30 Miscellaneous Information (*Order Clarification Bulletin) MEDICATION REQUIRES CLARIFICATION:PLE... Q8H XX ; Start 03/01/19 at 09:30 RAJI DIXON M.D. March 01, 2019 10:10
--- NOTE | 2019-03-01 10:15 | PN ---
Date/Time of Note Date/Time of Note DATE: 03/01/19 TIME: 10:14 Assessment/Plan Lines/Catheters IV Catheter Type (from [facility]): Peripheral IV Valadez in Place (from [facility]): No Assessment/Plan Chief Complaint/Hosp Course 1. Multiple wounds: + Wound cultures; wounds continuing to heal -Continue local care> therapy changed -frequent turning and off-loading -low air loss mattress -vitamin c -short term zinc -optimize nutrition -abx per ID -Debridement as needed 2. Pneumoperitoneum with likely perforation of the bladder. Previously family did not consent to proceeding to surgery and she significantly improved with conservative treatments and extubated; CT cystogram noted without contrast leak. -Diet as tolerated -DC okay from surgical standpoint. Will need urology follow-up 3. Hypochromic anemia: Status post PRBC transfusion, H&H stable -Monitor and transfuse as needed 4. UTI: -abx per sensitivity -frequent bladder emptying/cath care 5. Transaminitis: Likely 2/2 #5 -Trend 6. NSTEMI: -Cardiac optimization>defer to cards 7. Possible left knee effusion -Per medical team; consider Ortho consult 8. Anxiety: Currently on Ativan -Psych optimization Thank you. Patient seen and examined in collaboration with Dr. Osei Sanford. Subjective 24 Hr Interval Summary + bowel function. No fevers, chills, sob, congested cough, cp, palpitations, keita, dizziness, nausea, vomiting, diarrhea, dysuria. Exam/Review of Systems Vital Signs Vitals Vital Signs Date Temp Pulse Resp B/P (MAP) Pulse Ox O2 O2 Flow FiO2 Time Delivery Rate 03/01/19 97.8 60 18 138/74 96 Room Air 07:58 (95) Intake and Output 02/28/19 02/28/19 03/01/19 1515:00 23:00 07:00 IntakeIntake Total 1320 ml 360 ml BalanceBalance 1320 ml 360 ml Exam Free Text/Dictation Constitutional: NAD, well developed; somnolent Psych: nl mood Head: normocephalic, atraumatic Eyes: nl conjunctiva, EOMI, nl lids, nl sclera ENMT: nl external ears & nose, no nl lips & teeth (poor dentition), mucosa pink and moist Neck: supple, non-tender; No jvd Respiratory: normal air movement; No congested cough, No labored breathing Cardiovascular: regular rate and rhythm, nl pulses; No edema Gastrointestinal: soft, non-distended, min tender, no rebound Genitourinary - Female: nl external genitalia Musculoskeletal: nl extremities to inspection, Extremities: normal pulses Neurological: nl speech, no normal strength (generalized weakness) Skin: No rash or lesions, left hip wound: packed, scant drainage, granulating, no odor; sacral wound: Packed, scant drainage Lymph: nl lymph nodes Results Result Diagram: 02/27/19 0655 02/27/19 0655 MASSIMO WATKINS NP March 01, 2019 10:15
[2019-03-01 13:52] VITALS: BP 110/67; PULSE 68; RESP 18
--- NOTE | 2019-03-01 14:05 | PN ---
Date/Time of Note Date/Time of Note DATE: 03/01/19 TIME: 13:57 Assessment/Plan VTE Prophylaxis Risk score (from Nsg)>0 risk: 6 Pharmacological prophylaxis: NA/contraindicated Pharm contraindication: other Lines/Catheters IV Catheter Type (from Nrsg): Peripheral IV Urinary Cath still in place: No Assessment/Plan Hospital Course 59 yo female with chronic debility and leg weakness who presented with sepsis, severe anemia, and perforated viscus Perforated viscus: - conservative management per surgery - resolved Hip OM: - s/p Abx course per ID Macrocytic anemia secondary to elevated reticulocyte count - Status post 4 units of packed red blood cells - stable Iron deficiency: - s/p IV iron Acute kidney injury secondary to severe septic shock - Renal function improved to baseline B/l LE weakness: - PT/OT Anxiety: - Valium TID PRN Prophylaxis: SCDs, Protonix Discharge planning; To SNF when accepted. Antibiotics are completed. Alternatively could return to previous living situation if family is willing to accept Result Diagram: 02/27/19 0655 02/27/19 0655 Results 24hrs Laboratory Tests Test 02/28/19 17:12 02/28/19 20:56 03/01/19 08:43 03/01/19 12:36 Bedside Glucose 162 150 170 195 Subjective 24 Hr Interval Summary Constitutional: no complaints Exam/Review of Systems Exam Vitals Vital Signs Date Temp Pulse Resp B/P (MAP) Pulse Ox O2 O2 Flow FiO2 Time Delivery Rate 03/01/19 97.8 68 18 110/67 96 Room Air 13:52 (81) Intake and Output 02/28/19 02/28/19 03/01/19 1515:00 23:00 07:00 IntakeIntake Total 1320 ml 360 ml BalanceBalance 1320 ml 360 ml Constitutional: alert, oriented Respiratory: clear to auscultation Cardiovascular: regular rate and rhythm Gastrointestinal: soft; No distended Musculoskeletal: nl extremities to inspection Results Results 24hrs Laboratory Tests Test 02/28/19 17:12 02/28/19 20:56 03/01/19 08:43 03/01/19 12:36 Bedside Glucose 162 150 170 195 Medications Medication Current Medications Ipratropium [place] (Atrovent Hfa) 4 puff Q2H RESP THERAPY PRN INH SHORTNESS OF BREATH; Start 01/17/19 at 00:00 Acetaminophen (Tylenol Liquid) 650 mg Q6H PRN PO PAIN LEVEL 1-3 OR FEVER; Start 01/17/19 at 00:00 Miscellaneous Information 1 ea NOTE XX ; Start 01/17/19 at 11:00 Glucose (Glutose) 15 gm Q15M PRN PO DECREASED GLUCOSE; Start 01/17/19 at 11:00 Glucose (Glutose) 22.5 gm Q15M PRN PO DECREASED GLUCOSE; Start 01/17/19 at 11:00 Dextrose (D50w Syringe) 25 ml Q15M PRN IV DECREASED GLUCOSE; Start 01/17/19 at 11:00 Dextrose (D50w Syringe) 50 ml Q15M PRN IV DECREASED GLUCOSE; Start 01/17/19 at 11:00 Glucagon (Glucagen) 1 mg Q15M PRN IM DECREASED GLUCOSE; Start 01/17/19 at 11:00 Glucose (Glutose) 15 gm Q15M PRN BUCCAL DECREASED GLUCOSE; Start 01/17/19 at 11:00 Collagenase (Santyl) 1 applic DAILY TOP Last administered on 03/01/19 08:51; Admin Dose 1 APPLIC; Start 01/17/19 at 17:00 Carvedilol (Coreg) 3.125 mg BID PO Last administered on 03/01/19 08:51; Admin Dose 3.125 MG; Start 01/21/19 at 09:00 Sodium Hypochlorite (Dakins Diluted ()) 1 applic DAILY TP Last administered on 03/01/19 08:52; Admin Dose 1 APPLIC; Start 01/28/19 at 09:40 Citalopram Hydrobromide (Celexa) 10 mg DAILY PO Last administered on 03/01/19 08:50; Admin Dose 10 MG; Start 01/30/19 at 09:00 Insulin Aspart (Novolog Insulin Pen) NOVOLOG *MILD* ALGORITHM WITH MEALS BEDTIME SC Last administered on 03/01/19 12:48; Admin Dose 2 UNIT; Start 01/30/19 at 08:00 Baclofen (Lioresal) 5 mg TID PO Last administered on 03/01/19 12:38; Admin Dose 5 MG; Start 02/01/19 at 21:00 Lorazepam (Ativan) 0.5 mg Q8H PRN PO ANXIETY Last administered on 02/28/19 22:57; Admin Dose 0.5 MG; Start 02/02/19 at 12:00 Oxycodone/ Acetaminophen (Percocet (5/ 325)) 1 tab Q6H PRN PO MODERATE PAIN LEVEL 4-6 Last administered on 03/01/19at 12:38; Admin Dose 1 TAB; Start 02/07/19 at 14:30 Diazepam (Valium) 2 mg TID PRN PO anxiety Last administered on 03/01/19 08:51; Admin Dose 2 MG; Start 02/11/19 at 13:00 Clonidine (Catapres) 0.1 mg Q8H PRN PO SBP>170; Start 02/19/19 at 11:30 Polyethylene Glycol (Miralax) 17 gm DAILY PRN PO CONSTIPATION Last administered on 02/25/19 17:10; Admin Dose 17 GM; Start 02/25/19 at 13:00 Polyethylene Glycol (Miralax) 17 gm BID PO ; Start 02/26/19 at 14:30 Docusate Sodium (Colace) 100 mg BID PO Last administered on 03/01/19at 08:50; Admin Dose 100 MG; Start 02/26/19 at 14:30 Miscellaneous Information (*Order Clarification Bulletin) MEDICATION REQUIRES CLARIFICATION:PLE... Q8H XX ; Start 03/01/19 at 09:30 ALLISON WOLFF March 01, 2019 14:05
[2019-03-01 19:35] VITALS: BP 128/64; PULSE 71; RESP 19
[2019-03-01] MEDS ORDERED: GUAIFENESIN 20 MG/ML 5ML CUP PO PRN (22:00)
[2019-03-02] MEDS: OXYCODONE/ACETAMINOPHEN (5/325) TAB PO PRN ×4 (01:55→20:20)
[2019-03-02 03:03] VITALS: BP 138/71; PULSE 58; RESP 19
[2019-03-02] MEDS: DIPHENHYDRAMINE 25 MG CAP PO SCH ×2 (05:25)
[2019-03-02 07:20] VITALS: BP 148/78; PULSE 59; RESP 16
[2019-03-02] MEDS: INSULIN ASPART [NOVOLOG] 3 ML PEN SC SCH ×4 (08:00→21:00)
[2019-03-02] MEDS: DOCUSATE SODIUM 100 MG CAP PO SCH ×2 (08:42→20:20)
[2019-03-02] MEDS: BACLOFEN 10 MG TAB PO SCH ×3 (08:42→20:19)
[2019-03-02] MEDS: CITALOPRAM 20 MG TAB PO SCH (08:43)
[2019-03-02] MEDS: POLYETHYLENE GLYCOL 17 GM PACKET PO SCH ×2 (08:44→20:19)
[2019-03-02] MEDS: COLLAGENASE 5 GM (UD JAR) TOP SCH (08:44)
[2019-03-02] MEDS: BALSAM PERU/CASTOR OIL 60 GM TUBE TOP SCH ×3 (08:45→21:00)
[2019-03-02] MEDS: DAKINS 0.0125%(1/40) 473 ML SOLUTION TP SCH (08:45)
--- NOTE | 2019-03-02 11:02 | CONS ---
Assessment/Plan Assessment/Plan Hospital Course (Demo Recall) #Anemia -patient's initial Hg of 2.6 was likely secondary to GIB and perforated viscous. Stool ob at that time was negative. -anemia panel is consistent with iron deficiency -s/p Ferrlecit 125 mg IV x 5 days completed 01/30. Hg stable > 9. last checked on 02/19 #Sepsis -2/2 UTI and wound infection -now off antibiotics #Perforated viscous -continue conservative management per surgery -pt is now stable #JACKIE -renal following -Creatine came down to 1.16 Consultation Date/Type/Reason Admit Date/Time Jan 16, 2019 at 23:33 Initial Consult Date 01/25/19 Type of Consult hematology Reason for Consultation no acute overnight evnets Requesting Provider: ALLISON WOLFF Date/Time of Note DATE: 03/02/19 TIME: 10:50 24 HR Interval Summary Free Text/Dictation still requiring pain medication around the clock Constitutional: no complaints Exam/Review of Systems Exam Vitals Vital Signs Date Temp Pulse Resp B/P (MAP) Pulse Ox O2 O2 Flow FiO2 Time Delivery Rate 03/02/19 98.6 59 16 148/78 97 Room Air 07:20 (101) Intake and Output 03/01/19 03/01/19 03/02/19 1515:00 23:00 07:00 IntakeIntake Total 640 ml 120 ml 50 ml BalanceBalance 640 ml 120 ml 50 ml Constitutional: alert, oriented Psych: no complaints Head: normocephalic Eyes: nl conjunctiva ENMT: nl external ears & nose Neck: supple Respiratory: clear to auscultation Cardiovascular: regular rate and rhythm Gastrointestinal: soft Musculoskeletal: nl extremities to inspection Extremities: normal pulses Results Result Diagram: 02/27/19 0655 02/27/19 0655 Results 24hrs Laboratory Tests Test 03/01/19 12:36 03/01/19 17:15 03/01/19 20:56 03/02/19 08:42 Bedside Glucose 195 109 129 107 Medications Medication Current Medications Ipratropium [place] (Atrovent Hfa) 4 puff Q2H RESP THERAPY PRN INH SHORTNESS OF BREATH; Start 01/17/19 at 00:00 Acetaminophen (Tylenol Liquid) 650 mg Q6H PRN PO PAIN LEVEL 1-3 OR FEVER; Start 01/17/19 at 00:00 Miscellaneous Information 1 ea NOTE XX ; Start 01/17/19 at 11:00 Glucose (Glutose) 15 gm Q15M PRN PO DECREASED GLUCOSE; Start 01/17/19 at 11:00 Glucose (Glutose) 22.5 gm Q15M PRN PO DECREASED GLUCOSE; Start 01/17/19 at 11:00 Dextrose (D50w Syringe) 25 ml Q15M PRN IV DECREASED GLUCOSE; Start 01/17/19 at 11:00 Dextrose (D50w Syringe) 50 ml Q15M PRN IV DECREASED GLUCOSE; Start 01/17/19 at 11:00 Glucagon (Glucagen) 1 mg Q15M PRN IM DECREASED GLUCOSE; Start 01/17/19 at 11:00 Glucose (Glutose) 15 gm Q15M PRN BUCCAL DECREASED GLUCOSE; Start 01/17/19 at 11:00 Collagenase (Santyl) 1 applic DAILY TOP Last administered on 03/02/19 08:44; Admin Dose 1 APPLIC; Start 01/17/19 at 17:00 Carvedilol (Coreg) 3.125 mg BID PO Last administered on 03/01/19 20:49; Admin Dose 3.125 MG; Start 01/21/19 at 09:00 Sodium Hypochlorite (Dakins Diluted ()) 1 applic DAILY TP Last administered on 03/02/19 08:45; Admin Dose 1 APPLIC; Start 01/28/19 at 09:40 Citalopram Hydrobromide (Celexa) 10 mg DAILY PO Last administered on 03/02/19 08:43; Admin Dose 10 MG; Start 01/30/19 at 09:00 Insulin Aspart (Novolog Insulin Pen) NOVOLOG *MILD* ALGORITHM WITH MEALS BEDTIME SC Last administered on 03/01/19 12:48; Admin Dose 2 UNIT; Start 01/30/19 at 08:00 Baclofen (Lioresal) 5 mg TID PO Last administered on 03/02/19 08:42; Admin Dose 5 MG; Start 02/01/19 at 21:00 Lorazepam (Ativan) 0.5 mg Q8H PRN PO ANXIETY Last administered on 02/28/19 22:57; Admin Dose 0.5 MG; Start 02/02/19 at 12:00 Oxycodone/ Acetaminophen (Percocet (5/ 325)) 1 tab Q6H PRN PO MODERATE PAIN LEVEL 4-6 Last administered on 03/02/19 07:57; Admin Dose 1 TAB; Start 02/07/19 at 14:30 Diazepam (Valium) 2 mg TID PRN PO anxiety Last administered on 03/01/19 20:48; Admin Dose 2 MG; Start 02/11/19 at 13:00 Clonidine (Catapres) 0.1 mg Q8H PRN PO SBP>170; Start 02/19/19 at 11:30 Polyethylene Glycol (Miralax) 17 gm DAILY PRN PO CONSTIPATION Last administered on 02/25/19 17:10; Admin Dose 17 GM; Start 02/25/19 at 13:00 Polyethylene Glycol (Miralax) 17 gm BID PO Last administered on 03/02/19 08:44; Admin Dose 17 GM; Start 02/26/19 at 14:30 Docusate Sodium (Colace) 100 mg BID PO Last administered on 03/02/19 08:42; Admin Dose 100 MG; Start 02/26/19 at 14:30 Miscellaneous Information (*Order Clarification Bulletin) MEDICATION REQUIRES CLARIFICATION:PLE... Q8H XX ; Start 03/01/19 at 09:30 Guaifenesin (Robitussin Liquid Cup) 100 mg Q4H PRN PO COUGH Last administered on 03/01/19 23:11; Admin Dose 100 MG; Start 03/01/19 at 22:00; Stop 03/02/19 at 21:59 RAJI DIXON M.D. March 02, 2019 11:01
--- NOTE | 2019-03-02 11:38 | PN ---
Date/Time of Note Date/Time of Note DATE: 03/02/19 TIME: 11:36 Assessment/Plan Lines/Catheters IV Catheter Type (from [facility]): Peripheral IV Valadez in Place (from [facility]): No Assessment/Plan Chief Complaint/Hosp Course 1. Multiple wounds: + Wound cultures; wounds healing -Continue local care> can cont same tx as outpatient -frequent turning and off-loading -low air loss mattress -vitamin c -short term zinc -optimize nutrition -Debridement as needed 2. Pneumoperitoneum with likely perforation of the bladder. Previously family did not consent to proceeding to surgery and she significantly improved with conservative treatments and extubated; CT cystogram noted without contrast leak. -Diet as tolerated -DC okay from surgical standpoint. Will need urology follow-up 3. Hypochromic anemia: Status post PRBC transfusion, H&H stable -Monitor and transfuse as needed 4. UTI: -abx per sensitivity -frequent bladder emptying/cath care 5. Transaminitis: Likely 2/2 #5 -Trend 6. NSTEMI: -Cardiac optimization>defer to cards 7. Possible left knee effusion -Per medical team; consider Ortho consult 8. Anxiety: Currently on Ativan -Psych optimization Thank you. Patient seen and examined in collaboration with Dr. Osei Sanford. Subjective 24 Hr Interval Summary No acute events. No fevers, chills, sob, congested cough, cp, palpitations, keita, dizziness, n/v/d/dysuria, new wounds. Exam/Review of Systems Vital Signs Vitals Vital Signs Date Temp Pulse Resp B/P (MAP) Pulse Ox O2 O2 Flow FiO2 Time Delivery Rate 03/02/19 98.6 59 16 148/78 97 Room Air 07:20 (101) Intake and Output 03/01/19 03/01/19 03/02/19 1515:00 23:00 07:00 IntakeIntake Total 640 ml 120 ml 50 ml BalanceBalance 640 ml 120 ml 50 ml Exam Free Text/Dictation Constitutional: NAD, well developed; somnolent Psych: nl mood Head: normocephalic, atraumatic Eyes: nl conjunctiva, EOMI, nl lids, nl sclera ENMT: nl external ears & nose, no nl lips & teeth (poor dentition), mucosa pink and moist Neck: supple, non-tender; No jvd Respiratory: normal air movement; No congested cough, No labored breathing Cardiovascular: regular rate and rhythm, nl pulses; No edema Gastrointestinal: soft, non-distended, min tender, no rebound Genitourinary - Female: nl external genitalia Musculoskeletal: nl extremities to inspection, Extremities: normal pulses Neurological: nl speech, no normal strength (generalized weakness) Skin: No rash or lesions, left hip wound: packed, scant drainage, granulating, no odor; sacral wound: Packed, scant drainage Lymph: nl lymph nodes Results Result Diagram: 02/27/19 0655 02/27/19 0655 MASSIMO WATKINS NP March 02, 2019 11:38
[2019-03-02 13:46] VITALS: BP 114/64; PULSE 70; RESP 16
--- NOTE | 2019-03-02 14:11 | PN ---
Date/Time of Note Date/Time of Note DATE: 03/02/19 TIME: 14:10 Assessment/Plan VTE Prophylaxis Risk score (from Nsg)>0 risk: 5 Pharmacological prophylaxis: NA/contraindicated Pharm contraindication: other Lines/Catheters IV Catheter Type (from Nrsg): Peripheral IV Urinary Cath still in place: No Assessment/Plan Hospital Course 59 yo female with chronic debility and leg weakness who presented with sepsis, severe anemia, and perforated viscus Perforated viscus: Resolved -Status post conservative management per surgery Hip OM: - s/p Abx course per ID Macrocytic anemia secondary to elevated reticulocyte count - Status post 4 units of packed red blood cells - stable Iron deficiency: - s/p IV iron Acute kidney injury secondary to severe septic shock - Renal function improved to baseline B/l LE weakness with debility - PT/OT -Placement pending Anxiety: - Valium TID PRN Prophylaxis: SCDs, Protonix Discharge planning; To SNF when accepted. Antibiotics are completed. Alternatively could return to previous living situation if family is willing to accept Result Diagram: 02/27/19 0655 02/27/1955 Results 24hrs Laboratory Tests Test 03/01/19 17:15 03/01/19 20:56 03/02/19 08:42 03/02/19 12:36 Bedside Glucose 109 129 107 99 Subjective 24 Hr Interval Summary Constitutional: no complaints Exam/Review of Systems Exam Vitals Vital Signs Date Temp Pulse Resp B/P (MAP) Pulse Ox O2 O2 Flow FiO2 Time Delivery Rate 03/02/19 98.5 70 16 114/64 96 Room Air 13:46 (81) Intake and Output 03/01/19 03/01/19 03/02/19 1515:00 23:00 07:00 IntakeIntake Total 640 ml 120 ml 50 ml BalanceBalance 640 ml 120 ml 50 ml Constitutional: alert, oriented Respiratory: clear to auscultation Cardiovascular: regular rate and rhythm Gastrointestinal: soft; No distended Musculoskeletal: nl extremities to inspection Results Results 24hrs Laboratory Tests Test 03/01/19 17:15 03/01/19 20:56 03/02/19 08:42 03/02/19 12:36 Bedside Glucose 109 129 107 99 Medications Medication Current Medications Ipratropium [place] (Atrovent Hfa) 4 puff Q2H RESP THERAPY PRN INH SHORTNESS OF BREATH; Start 01/17/19 at 00:00 Acetaminophen (Tylenol Liquid) 650 mg Q6H PRN PO PAIN LEVEL 1-3 OR FEVER; Start 01/17/19 at 00:00 Miscellaneous Information 1 ea NOTE XX ; Start 01/17/19 at 11:00 Glucose (Glutose) 15 gm Q15M PRN PO DECREASED GLUCOSE; Start 01/17/19 at 11:00 Glucose (Glutose) 22.5 gm Q15M PRN PO DECREASED GLUCOSE; Start 01/17/19 at 11:00 Dextrose (D50w Syringe) 25 ml Q15M PRN IV DECREASED GLUCOSE; Start 01/17/19 at 11:00 Dextrose (D50w Syringe) 50 ml Q15M PRN IV DECREASED GLUCOSE; Start 01/17/19 at 11:00 Glucagon (Glucagen) 1 mg Q15M PRN IM DECREASED GLUCOSE; Start 01/17/19 at 11:00 Glucose (Glutose) 15 gm Q15M PRN BUCCAL DECREASED GLUCOSE; Start 01/17/19 at 11:00 Collagenase (Santyl) 1 applic DAILY TOP Last administered on 03/02/19 08:44; Admin Dose 1 APPLIC; Start 01/17/19 at 17:00 Carvedilol (Coreg) 3.125 mg BID PO Last administered on 03/01/19 20:49; Admin Dose 3.125 MG; Start 01/21/19 at 09:00 Sodium Hypochlorite (Dakins Diluted ()) 1 applic DAILY TP Last administered on 03/02/19 08:45; Admin Dose 1 APPLIC; Start 01/28/19 at 09:40 Citalopram Hydrobromide (Celexa) 10 mg DAILY PO Last administered on 03/02/19 08:43; Admin Dose 10 MG; Start 01/30/19 at 09:00 Insulin Aspart (Novolog Insulin Pen) NOVOLOG *MILD* ALGORITHM WITH MEALS BEDTIME SC Last administered on 03/01/19 12:48; Admin Dose 2 UNIT; Start 01/30/19 at 08:00 Baclofen (Lioresal) 5 mg TID PO Last administered on 03/02/19at 12:37; Admin Dose 5 MG; Start 02/01/19 at 21:00 Lorazepam (Ativan) 0.5 mg Q8H PRN PO ANXIETY Last administered on 02/28/19 22:57; Admin Dose 0.5 MG; Start 02/02/19 at 12:00 Oxycodone/ Acetaminophen (Percocet (5/ 325)) 1 tab Q6H PRN PO MODERATE PAIN LEVEL 4-6 Last administered on 03/02/19 07:57; Admin Dose 1 TAB; Start 02/07/19 at 14:30 Diazepam (Valium) 2 mg TID PRN PO anxiety Last administered on 03/01/19 20:48; Admin Dose 2 MG; Start 02/11/19 at 13:00 Clonidine (Catapres) 0.1 mg Q8H PRN PO SBP>170; Start 02/19/19 at 11:30 Polyethylene Glycol (Miralax) 17 gm DAILY PRN PO CONSTIPATION Last administered on 02/25/19 17:10; Admin Dose 17 GM; Start 02/25/19 at 13:00 Polyethylene Glycol (Miralax) 17 gm BID PO Last administered on 03/02/19 08:44; Admin Dose 17 GM; Start 02/26/19 at 14:30 Docusate Sodium (Colace) 100 mg BID PO Last administered on 03/02/19 08:42; Admin Dose 100 MG; Start 02/26/19 at 14:30 Miscellaneous Information (*Order Clarification Bulletin) MEDICATION REQUIRES CLARIFICATION:PLE... Q8H XX ; Start 03/01/19 at 09:30 Guaifenesin (Robitussin Liquid Cup) 100 mg Q4H PRN PO COUGH Last administered on 03/01/19 23:11; Admin Dose 100 MG; Start 03/01/19 at 22:00; Stop 03/02/19 at 21:59 ALLISON WOLFF March 02, 2019 14:11
[2019-03-02] MEDS: LORAZEPAM 0.5 MG TAB PO PRN (17:24)
[2019-03-02 19:48] VITALS: BP 118/70; PULSE 70; RESP 19
[2019-03-03 02:18] VITALS: BP 149/82; PULSE 62; RESP 18
[2019-03-03] MEDS: OXYCODONE/ACETAMINOPHEN (5/325) TAB PO PRN ×4 (02:28→20:38)
[2019-03-03 07:22] VITALS: BP 133/77; PULSE 65; RESP 18
[2019-03-03] MEDS: INSULIN ASPART [NOVOLOG] 3 ML PEN SC SCH ×4 (08:00→20:39)
[2019-03-03] MEDS: DOCUSATE SODIUM 100 MG CAP PO SCH ×2 (08:16→20:38)
[2019-03-03] MEDS: CITALOPRAM 20 MG TAB PO SCH (08:17)
[2019-03-03] MEDS: COLLAGENASE 5 GM (UD JAR) TOP SCH (08:18)
[2019-03-03] MEDS: BACLOFEN 10 MG TAB PO SCH ×3 (08:18→20:38)
[2019-03-03] MEDS: POLYETHYLENE GLYCOL 17 GM PACKET PO SCH ×2 (08:18→20:38)
[2019-03-03] MEDS: BALSAM PERU/CASTOR OIL 60 GM TUBE TOP SCH ×2 (08:20→20:48)
[2019-03-03] MEDS: DAKINS 0.0125%(1/40) 473 ML SOLUTION TP SCH (08:21)
--- NOTE | 2019-03-03 09:35 | CONS ---
Assessment/Plan Assessment/Plan Hospital Course (Demo Recall) #Anemia -patient's initial Hg of 2.6 was likely secondary to GIB and perforated viscous. Stool ob at that time was negative. -anemia panel is consistent with iron deficiency -s/p Ferrlecit 125 mg IV x 5 days completed 01/30. Hg stable > 9. last checked on 02/19 #Sepsis -2/2 UTI and wound infection -now off antibiotics #Perforated viscous -continue conservative management per surgery -pt is now stable #JACKIE -renal following -Creatine came down to 1.16 Consultation Date/Type/Reason Admit Date/Time Jan 16, 2019 at 23:33 Initial Consult Date 01/25/19 Type of Consult hematology Reason for Consultation anemia Requesting Provider: ALLISON WOLFF Date/Time of Note DATE: 03/03/19 TIME: 09:34 24 HR Interval Summary Free Text/Dictation no acute overnight events Exam/Review of Systems Exam Vitals Vital Signs Date Temp Pulse Resp B/P (MAP) Pulse Ox O2 O2 Flow FiO2 Time Delivery Rate 03/03/19 97.9 65 18 133/77 97 Room Air 07:22 (95) Intake and Output 03/02/19 03/02/19 03/03/19 1515:00 23:00 07:00 IntakeIntake Total 600 ml 660 ml BalanceBalance 600 ml 660 ml Constitutional: alert, oriented Psych: anxiety, depression Eyes: nl conjunctiva ENMT: nl external ears & nose Neck: supple Respiratory: clear to auscultation Gastrointestinal: soft Musculoskeletal: nl extremities to inspection Results Result Diagram: 02/27/19 0655 02/27/19 0655 Results 24hrs Laboratory Tests Test 03/02/19 12:36 03/02/19 17:18 03/02/19 21:24 03/03/19 08:02 Bedside Glucose 99 112 116 113 Medications Medication Current Medications Ipratropium [place] (Atrovent Hfa) 4 puff Q2H RESP THERAPY PRN INH SHORTNESS OF BREATH; Start 01/17/19 at 00:00 Acetaminophen (Tylenol Liquid) 650 mg Q6H PRN PO PAIN LEVEL 1-3 OR FEVER; Start 01/17/19 at 00:00 Miscellaneous Information 1 ea NOTE XX ; Start 01/17/19 at 11:00 Glucose (Glutose) 15 gm Q15M PRN PO DECREASED GLUCOSE; Start 01/17/19 at 11:00 Glucose (Glutose) 22.5 gm Q15M PRN PO DECREASED GLUCOSE; Start 01/17/19 at 11:00 Dextrose (D50w Syringe) 25 ml Q15M PRN IV DECREASED GLUCOSE; Start 01/17/19 at 11:00 Dextrose (D50w Syringe) 50 ml Q15M PRN IV DECREASED GLUCOSE; Start 01/17/19 at 11:00 Glucagon (Glucagen) 1 mg Q15M PRN IM DECREASED GLUCOSE; Start 01/17/19 at 11:00 Glucose (Glutose) 15 gm Q15M PRN BUCCAL DECREASED GLUCOSE; Start 01/17/19 at 11:00 Collagenase (Santyl) 1 applic DAILY TOP Last administered on 03/03/19 08:18; Admin Dose 1 APPLIC; Start 01/17/19 at 17:00 Carvedilol (Coreg) 3.125 mg BID PO Last administered on 03/03/19 08:17; Admin Dose 3.125 MG; Start 01/21/19 at 09:00 Sodium Hypochlorite (Dakins Diluted ()) 1 applic DAILY TP Last administered on 03/03/19 08:21; Admin Dose 1 APPLIC; Start 01/28/19 at 09:40 Citalopram Hydrobromide (Celexa) 10 mg DAILY PO Last administered on 03/03/19 08:17; Admin Dose 10 MG; Start 01/30/19 at 09:00 Insulin Aspart (Novolog Insulin Pen) NOVOLOG *MILD* ALGORITHM WITH MEALS BEDTIME SC Last administered on 03/01/19 12:48; Admin Dose 2 UNIT; Start 01/30/19 at 08:00 Baclofen (Lioresal) 5 mg TID PO Last administered on 03/03/19 08:18; Admin Dose 5 MG; Start 02/01/19 at 21:00 Lorazepam (Ativan) 0.5 mg Q8H PRN PO ANXIETY Last administered on 03/02/19 17:24; Admin Dose 0.5 MG; Start 02/02/19 at 12:00 Oxycodone/ Acetaminophen (Percocet (5/ 325)) 1 tab Q6H PRN PO MODERATE PAIN LEVEL 4-6 Last administered on 03/03/19 08:16; Admin Dose 1 TAB; Start 02/07/19 at 14:30 Diazepam (Valium) 2 mg TID PRN PO anxiety Last administered on 03/01/19at 20:48; Admin Dose 2 MG; Start 02/11/19 at 13:00 Clonidine (Catapres) 0.1 mg Q8H PRN PO SBP>170; Start 02/19/19 at 11:30 Polyethylene Glycol (Miralax) 17 gm DAILY PRN PO CONSTIPATION Last administered on 02/25/19at 17:10; Admin Dose 17 GM; Start 02/25/19 at 13:00 Polyethylene Glycol (Miralax) 17 gm BID PO Last administered on 03/03/19at 08:18; Admin Dose 17 GM; Start 02/26/19 at 14:30 Docusate Sodium (Colace) 100 mg BID PO Last administered on 03/03/19 08:16; Admin Dose 100 MG; Start 02/26/19 at 14:30 Miscellaneous Information (*Order Clarification Bulletin) MEDICATION REQUIRES CLARIFICATION:PLE... Q8H XX ; Start 03/01/19 at 09:30 RAJI DIXON M.D. March 03, 2019 09:35
[2019-03-03 13:32] VITALS: BP 118/70; PULSE 68; RESP 18
--- NOTE | 2019-03-03 14:16 | PN ---
Date/Time of Note Date/Time of Note DATE: 03/03/19 TIME: 14:15 Assessment/Plan VTE Prophylaxis Risk score (from Nsg)>0 risk: 3 Pharmacological prophylaxis: NA/contraindicated Pharm contraindication: other Lines/Catheters IV Catheter Type (from Nrsg): Peripheral IV Urinary Cath still in place: No Assessment/Plan Hospital Course 59 yo female with chronic debility and leg weakness who presented with sepsis, severe anemia, and perforated viscus Perforated viscus: Resolved -Status post conservative management per surgery Hip OM: - s/p Abx course per ID Macrocytic anemia secondary to elevated reticulocyte count - Status post 4 units of packed red blood cells - stable Iron deficiency: - s/p IV iron Acute kidney injury secondary to severe septic shock - Renal function improved to baseline B/l LE weakness with debility - PT/OT -Placement pending Anxiety: - Valium TID PRN Nasal congestion -Claritin and Mucinex Prophylaxis: SCDs, Protonix Discharge planning; To SNF when accepted. Antibiotics are completed. Alternatively could return to previous living situation if family is willing to accept Result Diagram: 02/27/19 0655 02/27/19 0655 Results 24hrs Laboratory Tests Test 03/02/19 17:18 03/02/19 21:24 03/03/19 08:02 03/03/19 12:14 Bedside Glucose 112 116 113 86 Subjective 24 Hr Interval Summary ENT: congestion Exam/Review of Systems Exam Vitals Vital Signs Date Temp Pulse Resp B/P (MAP) Pulse Ox O2 O2 Flow FiO2 Time Delivery Rate 03/03/19 98.0 68 18 118/70 93 Room Air 13:32 (86) Intake and Output 03/02/19 03/02/19 03/03/19 1515:00 23:00 07:00 IntakeIntake Total 600 ml 660 ml BalanceBalance 600 ml 660 ml Constitutional: alert, oriented Respiratory: clear to auscultation Cardiovascular: regular rate and rhythm Gastrointestinal: soft; No distended Musculoskeletal: nl extremities to inspection Results Results 24hrs Laboratory Tests Test 03/02/19 17:18 03/02/19 21:24 03/03/19 08:02 03/03/19 12:14 Bedside Glucose 112 116 113 86 Medications Medication Current Medications Ipratropium [place] (Atrovent Hfa) 4 puff Q2H RESP THERAPY PRN INH SHORTNESS OF BREATH; Start 01/17/19 at 00:00 Acetaminophen (Tylenol Liquid) 650 mg Q6H PRN PO PAIN LEVEL 1-3 OR FEVER; Start 01/17/19 at 00:00 Miscellaneous Information 1 ea NOTE XX ; Start 01/17/19 at 11:00 Glucose (Glutose) 15 gm Q15M PRN PO DECREASED GLUCOSE; Start 01/17/19 at 11:00 Glucose (Glutose) 22.5 gm Q15M PRN PO DECREASED GLUCOSE; Start 01/17/19 at 11:00 Dextrose (D50w Syringe) 25 ml Q15M PRN IV DECREASED GLUCOSE; Start 01/17/19 at 11:00 Dextrose (D50w Syringe) 50 ml Q15M PRN IV DECREASED GLUCOSE; Start 01/17/19 at 11:00 Glucagon (Glucagen) 1 mg Q15M PRN IM DECREASED GLUCOSE; Start 01/17/19 at 11:00 Glucose (Glutose) 15 gm Q15M PRN BUCCAL DECREASED GLUCOSE; Start 01/17/19 at 11:00 Collagenase (Santyl) 1 applic DAILY TOP Last administered on 03/03/19 08:18; Admin Dose 1 APPLIC; Start 01/17/19 at 17:00 Carvedilol (Coreg) 3.125 mg BID PO Last administered on 03/03/19 08:17; Admin Dose 3.125 MG; Start 01/21/19 at 09:00 Sodium Hypochlorite (Dakins Diluted ()) 1 applic DAILY TP Last administered on 03/03/19 08:21; Admin Dose 1 APPLIC; Start 01/28/19 at 09:40 Citalopram Hydrobromide (Celexa) 10 mg DAILY PO Last administered on 03/03/19 08:17; Admin Dose 10 MG; Start 01/30/19 at 09:00 Insulin Aspart (Novolog Insulin Pen) NOVOLOG *MILD* ALGORITHM WITH MEALS BEDTIME SC Last administered on 03/01/19 12:48; Admin Dose 2 UNIT; Start 01/30/19 at 08:00 Baclofen (Lioresal) 5 mg TID PO Last administered on 03/03/19 12:32; Admin Dose 5 MG; Start 02/01/19 at 21:00 Lorazepam (Ativan) 0.5 mg Q8H PRN PO ANXIETY Last administered on 03/02/19 17:24; Admin Dose 0.5 MG; Start 02/02/19 at 12:00 Oxycodone/ Acetaminophen (Percocet (5/ 325)) 1 tab Q6H PRN PO MODERATE PAIN LEVEL 4-6 Last administered on 03/03/19 08:16; Admin Dose 1 TAB; Start 02/07/19 at 14:30 Diazepam (Valium) 2 mg TID PRN PO anxiety Last administered on 03/01/19 20:48; Admin Dose 2 MG; Start 02/11/19 at 13:00 Clonidine (Catapres) 0.1 mg Q8H PRN PO SBP>170; Start 02/19/19 at 11:30 Polyethylene Glycol (Miralax) 17 gm DAILY PRN PO CONSTIPATION Last administered on 02/25/19 17:10; Admin Dose 17 GM; Start 02/25/19 at 13:00 Polyethylene Glycol (Miralax) 17 gm BID PO Last administered on 03/03/19 08:18; Admin Dose 17 GM; Start 02/26/19 at 14:30 Docusate Sodium (Colace) 100 mg BID PO Last administered on 03/03/19 08:16; Admin Dose 100 MG; Start 02/26/19 at 14:30 Miscellaneous Information (*Order Clarification Bulletin) MEDICATION REQUIRES CLARIFICATION:PLE... Q8H XX ; Start 03/01/19 at 09:30 ALLISON WOLFF March 03, 2019 14:16
--- NOTE | 2019-03-03 14:27 | PN ---
Date/Time of Note Date/Time of Note DATE: 03/03/19 TIME: 14:25 Assessment/Plan Lines/Catheters IV Catheter Type (from [facility] Peripheral IV Valadez in Place (from [facility]): No Assessment/Plan Chief Complaint/Hosp Course 1. Multiple wounds: + Wound cultures; wounds healing -Continue local care> can cont same tx as outpatient -frequent turning and off-loading -low air loss mattress -vitamin c -short term zinc -optimize nutrition -Debridement as needed > refused 2. Pneumoperitoneum with likely perforation of the bladder. Previously family did not consent to proceeding to surgery and she significantly improved with conservative treatments and extubated; CT cystogram noted without contrast leak. -Diet as tolerated -DC okay from surgical standpoint. Will need urology follow-up 3. Hypochromic anemia: Status post PRBC transfusion, H&H stable -Monitor and transfuse as needed 4. UTI: -abx per sensitivity -frequent bladder emptying/cath care 5. Transaminitis: Likely 2/2 #5 -Trend 6. NSTEMI: -Cardiac optimization>defer to cards 7. Possible left knee effusion -Per medical team; consider Ortho consult 8. Anxiety: Currently on Ativan -Psych optimization Thank you. Patient seen and examined in collaboration with Dr. Osei Sanford. Subjective 24 Hr Interval Summary Feels well. No fevers, chills, sob, congested cough, cp, palpitations, keita, dizziness, n/v/d/dysuria. Exam/Review of Systems Vital Signs Vitals Vital Signs Date Temp Pulse Resp B/P (MAP) Pulse Ox O2 O2 Flow FiO2 Time Delivery Rate 03/03/19 98.0 68 18 118/70 93 Room Air 13:32 (86) Intake and Output 03/02/19 03/02/19 03/03/19 1515:00 23:00 07:00 IntakeIntake Total 600 ml 660 ml BalanceBalance 600 ml 660 ml Exam Free Text/Dictation Constitutional: NAD, well developed; somnolent Psych: nl mood Head: normocephalic, atraumatic Eyes: nl conjunctiva, EOMI, nl lids, nl sclera ENMT: nl external ears & nose, no nl lips & teeth (poor dentition), mucosa pink and moist Neck: supple, non-tender; No jvd Respiratory: normal air movement; No congested cough, No labored breathing Cardiovascular: regular rate and rhythm, nl pulses; No edema Gastrointestinal: soft, non-distended, min tender, no rebound Genitourinary - Female: nl external genitalia Musculoskeletal: nl extremities to inspection, Extremities: normal pulses Neurological: nl speech, no normal strength (generalized weakness) Skin: No rash or lesions, left hip wound: packed, scant drainage, granulating, no odor; sacral wound: Packed, scant drainage Lymph: nl lymph nodes Results Result Diagram: 02/27/19 0655 02/27/19 0655 MASSIMO WATKINS NP March 03, 2019 14:27
[2019-03-03] MEDS: LORATADINE 10 MG TAB PO SCH (14:54)
[2019-03-03] MEDS: GUAIFENESIN LA 600 MG TABSR PO SCH ×2 (17:03→22:59)
[2019-03-03] MEDS: DIAZEPAM 2 MG TAB PO PRN (17:03)
[2019-03-03 19:38] VITALS: BP 134/71; PULSE 69; RESP 18
[2019-03-04 02:00] VITALS: BP 160/86; PULSE 68; RESP 17
[2019-03-04] MEDS: OXYCODONE/ACETAMINOPHEN (5/325) TAB PO PRN ×4 (02:36→21:29)
[2019-03-04 08:00] VITALS: BP 152/73; PULSE 59; RESP 18
[2019-03-04] MEDS: INSULIN ASPART [NOVOLOG] 3 ML PEN SC SCH ×4 (08:00→20:36)
[2019-03-04] MEDS: COLLAGENASE 5 GM (UD JAR) TOP SCH (08:28)
[2019-03-04] MEDS: CITALOPRAM 20 MG TAB PO SCH (08:28)
[2019-03-04] MEDS: POLYETHYLENE GLYCOL 17 GM PACKET PO SCH ×2 (08:28→20:36)
[2019-03-04] MEDS: BACLOFEN 10 MG TAB PO SCH ×3 (08:29→20:36)
[2019-03-04] MEDS: LORATADINE 10 MG TAB PO SCH (08:29)
[2019-03-04] MEDS: DOCUSATE SODIUM 100 MG CAP PO SCH ×2 (08:29→20:36)
[2019-03-04] MEDS: GUAIFENESIN LA 600 MG TABSR PO SCH ×2 (08:29→20:36)
[2019-03-04] MEDS: BALSAM PERU/CASTOR OIL 60 GM TUBE TOP SCH ×2 (08:31→20:41)
[2019-03-04] MEDS: DAKINS 0.0125%(1/40) 473 ML SOLUTION TP SCH (08:31)
--- NOTE | 2019-03-04 13:19 | CONS ---
Assessment/Plan Assessment/Plan Assessment/Plan (Daily) #Anemia -patient's initial Hg of 2.6 was likely secondary to GIB and perforated viscous. Stool ob at that time was negative. -anemia panel is consistent with iron deficiency -s/p Ferrlecit 125 mg IV x 5 days completed 01/30. Hg stable > 9. last checked on 02/19 #Sepsis -2/2 UTI and wound infection -now off antibiotics #Perforated viscous -continue conservative management per surgery -pt is now stable #JACKIE- resolved -renal following -Creatine wnl to 0.99 Patient seen in collaboration with Dr Dumont. resting in bed; seems comfortable Hgb stable no new events reported last night dw staff Consultation Date/Type/Reason Admit Date/Time Jan 16, 2019 at 23:33 Initial Consult Date 01/25/19 Type of Consult Hematology/oncology Reason for Consultation ANEMIA Requesting Provider: ALLISON WOLFF Date/Time of Note DATE: 03/04/19 TIME: 13:18 24 HR Interval Summary Free Text/Dictation resting in bed; seems comfortable Hgb stable no new events reported last night dw staff Constitutional: other (weakness) Detailed Summary Eyes: no complaints ENT: no complaints Respiratory: no complaints Cardiovascular: no complaints Gastrointestinal: no complaints Genitourinary: no complaints Musculoskeletal: restricted range of motion Skin: no complaints Neurologic: no complaints Psychological: nl mood/affect Immunologic: no complaints Exam/Review of Systems Exam Vitals Vital Signs Date Temp Pulse Resp B/P (MAP) Pulse Ox O2 O2 Flow FiO2 Time Delivery Rate 03/04/19 98.6 59 18 152/73 97 08:00 (99) 03/04/19 Room Air 02:00 Intake and Output 03/03/19 03/03/19 03/04/19 1515:00 23:00 07:00 IntakeIntake Total 920 ml 420 ml BalanceBalance 920 ml 420 ml Constitutional: alert, well developed Psych: nl mood/affect Head: atraumatic Eyes: nl lids ENMT: nl external ears & nose Neck: non-tender Respiratory: clear to auscultation Cardiovascular: nl pulses, other (s1s1) Gastrointestinal: soft, non-tender Musculoskeletal: muscle weakness Extremities: normal pulses Neurological: nl speech, other (alert/reponsive) Lymph: nontender Results Results 24hrs Laboratory Tests Test 03/03/19 17:05 03/03/19 20:35 03/04/19 08:24 03/04/19 12:48 Bedside Glucose 111 127 109 108 Medications Medication Current Medications Ipratropium [place] (Atrovent Hfa) 4 puff Q2H RESP THERAPY PRN INH SHORTNESS OF BREATH; Start 01/17/19 at 00:00 Acetaminophen (Tylenol Liquid) 650 mg Q6H PRN PO PAIN LEVEL 1-3 OR FEVER; Start 01/17/19 at 00:00 Miscellaneous Information 1 ea NOTE XX ; Start 01/17/19 at 11:00 Glucose (Glutose) 15 gm Q15M PRN PO DECREASED GLUCOSE; Start 01/17/19 at 11:00 Glucose (Glutose) 22.5 gm Q15M PRN PO DECREASED GLUCOSE; Start 01/17/19 at 1 1:00 Dextrose (D50w Syringe) 25 ml Q15M PRN IV DECREASED GLUCOSE; Start 01/17/19 at 11:00 Dextrose (D50w Syringe) 50 ml Q15M PRN IV DECREASED GLUCOSE; Start 01/17/19 at 11:00 Glucagon (Glucagen) 1 mg Q15M PRN IM DECREASED GLUCOSE; Start 01/17/19 at 11:00 Glucose (Glutose) 15 gm Q15M PRN BUCCAL DECREASED GLUCOSE; Start 01/17/19 at 11:00 Collagenase (Santyl) 1 applic DAILY TOP Last administered on 03/04/19 08:28; Admin Dose 1 APPLIC; Start 01/17/19 at 17:00 Carvedilol (Coreg) 3.125 mg BID PO Last administered on 03/04/19 08:28; Admin Dose 3.125 MG; Start 01/21/19 at 09:00 Sodium Hypochlorite (Dakins Diluted ()) 1 applic DAILY TP Last administered on 03/04/19 08:31; Admin Dose 1 APPLIC; Start 01/28/19 at 09:40 Citalopram Hydrobromide (Celexa) 10 mg DAILY PO Last administered on 03/04/19 08:28; Admin Dose 10 MG; Start 01/30/19 at 09:00 Insulin Aspart (Novolog Insulin Pen) NOVOLOG *MILD* ALGORITHM WITH MEALS BEDTIME SC Last administered on 03/01/19at 12:48; Admin Dose 2 UNIT; Start 01/30/19 at 08:00 Baclofen (Lioresal) 5 mg TID PO Last administered on 03/04/19 08:29; Admin Dose 5 MG; Start 02/01/19 at 21:00 Lorazepam (Ativan) 0.5 mg Q8H PRN PO ANXIETY Last administered on 03/02/19 17:24; Admin Dose 0.5 MG; Start 02/02/19 at 12:00 Oxycodone/ Acetaminophen (Percocet (5/ 325)) 1 tab Q6H PRN PO MODERATE PAIN LEVEL 4-6 Last administered on 03/04/19 08:40; Admin Dose 1 TAB; Start 02/07/19 at 14:30 Diazepam (Valium) 2 mg TID PRN PO anxiety Last administered on 03/03/19 17:03; Admin Dose 2 MG; Start 02/11/19 at 13:00 Clonidine (Catapres) 0.1 mg Q8H PRN PO SBP>170; Start 02/19/19 at 11:30 Polyethylene Glycol (Miralax) 17 gm DAILY PRN PO CONSTIPATION Last administered on 02/25/19 17:10; Admin Dose 17 GM; Start 02/25/19 at 13:00 Polyethylene Glycol (Miralax) 17 gm BID PO Last administered on 03/04/19 08:28; Admin Dose 17 GM; Start 02/26/19 at 14:30 Docusate Sodium (Colace) 100 mg BID PO Last administered on 03/04/19 08:29; Admin Dose 100 MG; Start 02/26/19 at 14:30 Miscellaneous Information (*Order Clarification Bulletin) MEDICATION REQUIRES CLARIFICATION:PLE... Q8H XX ; Start 03/01/19 at 09:30 Loratadine (Claritin) 10 mg DAILY PO Last administered on 03/04/19 08:29; Admin Dose 10 MG; Start 03/03/19 at 14:30 Guaifenesin (Mucinex) 600 mg BID PO Last administered on 03/04/19 08:29; Admin Dose 600 MG; Start 03/03/19 at 15:30 SHELBIE MARTINES March 04, 2019 13:19
--- NOTE | 2019-03-04 13:44 | PN ---
Date/Time of Note Date/Time of Note DATE: 03/04/19 TIME: 13:43 Assessment/Plan VTE Prophylaxis Risk score (from Ns)>0 risk: 4 SCD applied (from Ns): Yes Pharmacological prophylaxis: NA/contraindicated Pharm contraindication: other Lines/Catheters IV Catheter Type (from Nrsg): Peripheral IV Urinary Cath still in place: No Assessment/Plan Hospital Course 59 yo female with chronic debility and leg weakness who presented with sepsis, severe anemia, and perforated viscus Perforated viscus: Resolved -Status post conservative management per surgery Hip OM: - s/p Abx course per ID Macrocytic anemia secondary to elevated reticulocyte count - Status post 4 units of packed red blood cells - stable Iron deficiency: - s/p IV iron Acute kidney injury secondary to severe septic shock - Renal function improved to baseline B/l LE weakness with debility - PT/OT -Placement pending Anxiety: - Valium TID PRN Nasal congestion -Claritin and Mucinex Prophylaxis: SCDs, Protonix Discharge planning; To SNF when accepted. Antibiotics are completed. Alternatively could return to previous living situation if family is willing to accept Subjective 24 Hr Interval Summary Constitutional: no complaints Exam/Review of Systems Exam Vitals Vital Signs Date Temp Pulse Resp B/P (MAP) Pulse Ox O2 O2 Flow FiO2 Time Delivery Rate 03/04/19 98.6 59 18 152/73 97 08:00 (99) 03/04/19 Room Air 02:00 Intake and Output 03/03/19 03/03/19 03/04/19 1515:00 23:00 07:00 IntakeIntake Total 920 ml 420 ml BalanceBalance 920 ml 420 ml Constitutional: alert, oriented Respiratory: clear to auscultation Cardiovascular: regular rate and rhythm Gastrointestinal: soft; No distended Musculoskeletal: nl extremities to inspection Results Results 24hrs Laboratory Tests Test 03/03/19 17:05 03/03/19 20:35 03/04/19 08:24 03/04/19 12:48 Bedside Glucose 111 127 109 108 Medications Medication Current Medications Ipratropium [place] (Atrovent Hfa) 4 puff Q2H RESP THERAPY PRN INH SHORTNESS OF BREATH; Start 01/17/19 at 00:00 Acetaminophen (Tylenol Liquid) 650 mg Q6H PRN PO PAIN LEVEL 1-3 OR FEVER; Start 01/17/19 at 00:00 Miscellaneous Information 1 ea NOTE XX ; Start 01/17/19 at 11:00 Glucose (Glutose) 15 gm Q15M PRN PO DECREASED GLUCOSE; Start 01/17/19 at 11:00 Glucose (Glutose) 22.5 gm Q15M PRN PO DECREASED GLUCOSE; Start 01/17/19 at 11:00 Dextrose (D50w Syringe) 25 ml Q15M PRN IV DECREASED GLUCOSE; Start 01/17/19 at 11:00 Dextrose (D50w Syringe) 50 ml Q15M PRN IV DECREASED GLUCOSE; Start 01/17/19 at 11:00 Glucagon (Glucagen) 1 mg Q15M PRN IM DECREASED GLUCOSE; Start 01/17/19 at 11:00 Glucose (Glutose) 15 gm Q15M PRN BUCCAL DECREASED GLUCOSE; Start 01/17/19 at 11:00 Collagenase (Santyl) 1 applic DAILY TOP Last administered on 03/04/19 08:28; Admin Dose 1 APPLIC; Start 01/17/19 at 17:00 Carvedilol (Coreg) 3.125 mg BID PO Last administered on 03/04/19 08:28; Admin Dose 3.125 MG; Start 01/21/19 at 09:00 Sodium Hypochlorite (Dakins Diluted ()) 1 applic DAILY TP Last administered on 03/04/19 08:31; Admin Dose 1 APPLIC; Start 01/28/19 at 09:40 Citalopram Hydrobromide (Celexa) 10 mg DAILY PO Last administered on 03/04/19 08:28; Admin Dose 10 MG; Start 01/30/19 at 09:00 Insulin Aspart (Novolog Insulin Pen) NOVOLOG *MILD* ALGORITHM WITH MEALS BEDTIME SC Last administered on 03/01/19 12:48; Admin Dose 2 UNIT; Start 01/30/19 at 08:00 Baclofen (Lioresal) 5 mg TID PO Last administered on 03/04/19 08:29; Admin Dose 5 MG; Start 02/01/19 at 21:00 Lorazepam (Ativan) 0.5 mg Q8H PRN PO ANXIETY Last administered on 03/02/19 17:24; Admin Dose 0.5 MG; Start 02/02/19 at 12:00 Oxycodone/ Acetaminophen (Percocet (5/ 325)) 1 tab Q6H PRN PO MODERATE PAIN LEVEL 4-6 Last administered on 03/04/19 08:40; Admin Dose 1 TAB; Start 02/07/19 at 14:30 Diazepam (Valium) 2 mg TID PRN PO anxiety Last administered on 03/03/19 17:03; Admin Dose 2 MG; Start 02/11/19 at 13:00 Clonidine (Catapres) 0.1 mg Q8H PRN PO SBP>170; Start 02/19/19 at 11:30 Polyethylene Glycol (Miralax) 17 gm DAILY PRN PO CONSTIPATION Last administered on 02/25/19 17:10; Admin Dose 17 GM; Start 02/25/19 at 13:00 Polyethylene Glycol (Miralax) 17 gm BID PO Last administered on 03/04/19 08:28; Admin Dose 17 GM; Start 02/26/19 at 14:30 Docusate Sodium (Colace) 100 mg BID PO Last administered on 03/04/19 08:29; Admin Dose 100 MG; Start 02/26/19 at 14:30 Miscellaneous Information (*Order Clarification Bulletin) MEDICATION REQUIRES CLARIFICATION:PLE... Q8H XX ; Start 03/01/19 at 09:30 Loratadine (Claritin) 10 mg DAILY PO Last administered on 03/04/19 08:29; Admin Dose 10 MG; Start 03/03/19 at 14:30 Guaifenesin (Mucinex) 600 mg BID PO Last administered on 03/04/19 08:29; Admin Dose 600 MG; Start 03/03/19 at 15:30 ALLISON WOLFF March 04, 2019 13:44
[2019-03-04 14:00] VITALS: BP 127/66; PULSE 68; RESP 18
--- NOTE | 2019-03-04 16:33 | PN ---
Date/Time of Note Date/Time of Note DATE: 03/04/19 TIME: 16:30 Assessment/Plan Lines/Catheters [facility] IV Valadez in Place [facility] No Assessment/Plan Chief Complaint/Hosp Course 1. Multiple wounds: + Wound cultures; wounds healing -Continue local care> can cont same tx as outpatient -frequent turning and off-loading -low air loss mattress -vitamin c -short term zinc -optimize nutrition -Debridement as needed > refused 2. Pneumoperitoneum with likely perforation of the bladder. Previously family did not consent to proceeding to surgery and she significantly improved with conservative treatments and extubated; CT cystogram noted without contrast leak. -Diet as tolerated -DC okay from surgical standpoint. Will need urology follow-up 3. Hypochromic anemia: Status post PRBC transfusion, H&H stable -Monitor and transfuse as needed 4. UTI: -abx per sensitivity -frequent bladder emptying/cath care 5. Transaminitis: Likely 2/2 #5 -Trend 6. NSTEMI: -Cardiac optimization>defer to cards 7. Possible left knee effusion -Per medical team; consider Ortho consult 8. Anxiety: Currently on Ativan -Psych optimization Thank you. Patient seen and examined in collaboration with Dr. Osei Sanford. Subjective 24 Hr Interval Summary Feels well. No fevers, chills, sob, congested cough, cp, palpitations, keita, dizziness, n/v/d/dysuria, excessive wound drainage, change in wound. Exam/Review of Systems Vital Signs Vitals Vital Signs Date Temp Pulse Resp B/P (MAP) Pulse Ox O2 O2 Flow FiO2 Time Delivery Rate 03/04/19 98.0 68 18 127/66 98 14:00 (86) 03/04/19 Room Air 02:00 Intake and Output 03/03/19 03/03/19 03/04/19 1515:00 23:00 07:00 IntakeIntake Total 920 ml 420 ml BalanceBalance 920 ml 420 ml Exam Free Text/Dictation Constitutional: NAD, well developed; somnolent Psych: nl mood Head: normocephalic, atraumatic Eyes: nl conjunctiva, EOMI, nl lids, nl sclera ENMT: nl external ears & nose, no nl lips & teeth (poor dentition), mucosa pink and moist Neck: supple, non-tender; No jvd Respiratory: normal air movement; No congested cough, No labored breathing Cardiovascular: regular rate and rhythm, nl pulses; No edema Gastrointestinal: soft, non-distended, min tender, no rebound Genitourinary - Female: nl external genitalia Musculoskeletal: nl extremities to inspection, Extremities: normal pulses Neurological: nl speech, no normal strength (generalized weakness) Skin: No rash or lesions, left hip wound: packed, scant drainage, granulating, no odor; sacral wound: Packed, scant drainage Lymph: nl lymph nodes MASSIMO WATKINS NP March 04, 2019 16:32
[2019-03-04] MEDS: LORAZEPAM 0.5 MG TAB PO PRN (17:54)
[2019-03-04 19:43] VITALS: BP 137/82; PULSE 78; RESP 18
[2019-03-05 01:42] VITALS: BP 135/86; PULSE 60; RESP 19
[2019-03-05] MEDS: OXYCODONE/ACETAMINOPHEN (5/325) TAB PO PRN ×4 (04:18→22:40)
[2019-03-05 07:18] VITALS: BP 154/77; PULSE 70; RESP 18
[2019-03-05] MEDS: INSULIN ASPART [NOVOLOG] 3 ML PEN SC SCH ×4 (08:00→20:55)
[2019-03-05] MEDS: POLYETHYLENE GLYCOL 17 GM PACKET PO SCH ×2 (08:23→20:55)
[2019-03-05] MEDS: GUAIFENESIN LA 600 MG TABSR PO SCH ×2 (08:24→20:54)
[2019-03-05] MEDS: COLLAGENASE 5 GM (UD JAR) TOP SCH (08:24)
[2019-03-05] MEDS: BACLOFEN 10 MG TAB PO SCH ×3 (08:24→20:55)
[2019-03-05] MEDS: CITALOPRAM 20 MG TAB PO SCH (08:24)
[2019-03-05] MEDS: DOCUSATE SODIUM 100 MG CAP PO SCH ×2 (08:24→20:55)
[2019-03-05] MEDS: LORATADINE 10 MG TAB PO SCH (08:25)
[2019-03-05] MEDS: DAKINS 0.0125%(1/40) 473 ML SOLUTION TP SCH (08:26)
[2019-03-05] MEDS: BALSAM PERU/CASTOR OIL 60 GM TUBE TOP SCH ×2 (08:26→20:59)
[2019-03-05 13:50] VITALS: BP 115/66; PULSE 59; RESP 18
--- NOTE | 2019-03-05 16:13 | PN ---
Date/Time of Note Date/Time of Note DATE: 03/05/19 TIME: 16:12 Assessment/Plan VTE Prophylaxis Risk score (from Ns)>0 risk: 3 SCD applied (from Ns): Yes Pharmacological prophylaxis: NA/contraindicated Pharm contraindication: other Lines/Catheters IV Catheter Type (from Nrsg): Peripheral IV Urinary Cath still in place: No Assessment/Plan Hospital Course 59 yo female with chronic debility and leg weakness who presented with sepsis, severe anemia, and perforated viscus Perforated viscus: Resolved -Status post conservative management per surgery Hip OM: - s/p Abx course per ID Macrocytic anemia secondary to elevated reticulocyte count - Status post 4 units of packed red blood cells - stable Iron deficiency: - s/p IV iron Acute kidney injury secondary to severe septic shock - Renal function improved to baseline B/l LE weakness with debility - PT/OT -Placement pending Anxiety: - Valium TID PRN Nasal congestion -Claritin and Mucinex Prophylaxis: SCDs, Protonix Discharge planning; To SNF when accepted. Antibiotics are completed. Alternatively could return to previous living situation if family is willing to accept Results 24hrs Laboratory Tests Test 03/04/19 17:06 03/04/19 20:35 03/05/19 08:23 03/05/19 12:18 Bedside Glucose 96 125 136 183 Subjective 24 Hr Interval Summary Constitutional: no complaints Exam/Review of Systems Exam Vitals Vital Signs Date Temp Pulse Resp B/P (MAP) Pulse Ox O2 O2 Flow FiO2 Time Delivery Rate 03/05/19 99.0 59 18 115/66 97 Room Air 13:50 (82) Intake and Output 03/04/19 03/04/19 03/05/19 1515:00 23:00 07:00 IntakeIntake Total 800 ml 440 ml OutputOutput Total 1 ml BalanceBalance 800 ml 439 ml Constitutional: alert, oriented Respiratory: clear to auscultation Cardiovascular: regular rate and rhythm Gastrointestinal: soft; No distended Results Results 24hrs Laboratory Tests Test 03/04/19 17:06 03/04/19 20:35 03/05/19 08:23 03/05/19 12:18 Bedside Glucose 96 125 136 183 Medications Medication Current Medications Ipratropium [place] (Atrovent Hfa) 4 puff Q2H RESP THERAPY PRN INH SHORTNESS OF BREATH; Start 01/17/19 at 00:00 Acetaminophen (Tylenol Liquid) 650 mg Q6H PRN PO PAIN LEVEL 1-3 OR FEVER; Start 01/17/19 at 00:00 Miscellaneous Information 1 ea NOTE XX ; Start 01/17/19 at 11:00 Glucose (Glutose) 15 gm Q15M PRN PO DECREASED GLUCOSE; Start 01/17/19 at 11:00 Glucose (Glutose) 22.5 gm Q15M PRN PO DECREASED GLUCOSE; Start 01/17/19 at 11:00 Dextrose (D50w Syringe) 25 ml Q15M PRN IV DECREASED GLUCOSE; Start 01/17/19 at 11:00 Dextrose (D50w Syringe) 50 ml Q15M PRN IV DECREASED GLUCOSE; Start 01/17/19 at 11:00 Glucagon (Glucagen) 1 mg Q15M PRN IM DECREASED GLUCOSE; Start 01/17/19 at 11:00 Glucose (Glutose) 15 gm Q15M PRN BUCCAL DECREASED GLUCOSE; Start 01/17/19 at 11:00 Collagenase (Santyl) 1 applic DAILY TOP Last administered on 03/05/19 08:24; Admin Dose 1 APPLIC; Start 01/17/19 at 17:00 Carvedilol (Coreg) 3.125 mg BID PO Last administered on 03/05/19 08:25; Admin Dose 3.125 MG; Start 01/21/19 at 09:00 Sodium Hypochlorite (Dakins Diluted ()) 1 applic DAILY TP Last administered on 03/05/19 08:26; Admin Dose 1 APPLIC; Start 01/28/19 at 09:40 Citalopram Hydrobromide (Celexa) 10 mg DAILY PO Last administered on 03/05/19 08:24; Admin Dose 10 MG; Start 01/30/19 at 09:00 Insulin Aspart (Novolog Insulin Pen) NOVOLOG *MILD* ALGORITHM WITH MEALS BEDTIME SC Last administered on 03/05/19 12:20; Admin Dose 1 UNIT; Start 01/30/19 at 08:00 Baclofen (Lioresal) 5 mg TID PO Last administered on 03/05/19 12:19; Admin Dose 5 MG; Start 02/01/19 at 21:00 Lorazepam (Ativan) 0.5 mg Q8H PRN PO ANXIETY Last administered on 03/04/19 17:54; Admin Dose 0.5 MG; Start 02/02/19 at 12:00 Oxycodone/ Acetaminophen (Percocet (5/ 325)) 1 tab Q6H PRN PO MODERATE PAIN LEVEL 4-6 Last administered on 03/05/19 10:18; Admin Dose 1 TAB; Start 02/07/19 at 14:30 Diazepam (Valium) 2 mg TID PRN PO anxiety Last administered on 03/03/19 17:03; Admin Dose 2 MG; Start 02/11/19 at 13:00 Clonidine (Catapres) 0.1 mg Q8H PRN PO SBP>170; Start 02/19/19 at 11:30 Polyethylene Glycol (Miralax) 17 gm DAILY PRN PO CONSTIPATION Last administered on 02/25/19 17:10; Admin Dose 17 GM; Start 02/25/19 at 13:00 Polyethylene Glycol (Miralax) 17 gm BID PO Last administered on 03/05/19 08:23; Admin Dose 17 GM; Start 02/26/19 at 14:30 Docusate Sodium (Colace) 100 mg BID PO Last administered on 03/05/19 08:24; Admin Dose 100 MG; Start 02/26/19 at 14:30 Miscellaneous Information (*Order Clarification Bulletin) MEDICATION REQUIRES CLARIFICATION:PLE... Q8H XX ; Start 03/01/19 at 09:30 Loratadine (Claritin) 10 mg DAILY PO Last administered on 03/05/19 08:25; Admin Dose 10 MG; Start 03/03/19 at 14:30 Guaifenesin (Mucinex) 600 mg BID PO Last administered on 03/05/19 08:24; Admin Dose 600 MG; Start 03/03/19 at 15:30 ALLISON WOLFF March 05, 2019 16:13
--- NOTE | 2019-03-05 17:58 | PN ---
Date/Time of Note Date/Time of Note DATE: 03/05/19 TIME: 17:58 Assessment/Plan Lines/Catheters IV Catheter Type (from [facility]): Peripheral IV Valadez in Place (from [facility]): No Assessment/Plan Chief Complaint/Hosp Course 1. Multiple wounds: + Wound cultures; wounds healing -Continue local care> can cont same tx as outpatient -frequent turning and off-loading -low air loss mattress -vitamin c -short term zinc -optimize nutrition -Debridement as needed > refused 2. Pneumoperitoneum with likely perforation of the bladder. Previously family did not consent to proceeding to surgery and she significantly improved with conservative treatments and extubated; CT cystogram noted without contrast leak. -Diet as tolerated -DC okay from surgical standpoint. Will need urology follow-up 3. Hypochromic anemia: Status post PRBC transfusion, H&H stable -Monitor and transfuse as needed 4. UTI: -abx per sensitivity -frequent bladder emptying/cath care 5. Transaminitis: Likely 2/2 #5 -Trend 6. NSTEMI: -Cardiac optimization>defer to cards 7. Possible left knee effusion -Per medical team; consider Ortho consult 8. Anxiety: Currently on Ativan -Psych optimization Thank you Subjective 24 Hr Interval Summary Feels well. No fevers, chills, sob, congested cough, cp, palpitations, keita, dizziness, n/v/d/dysuria, excessive wound drainage, change in wound. Exam/Review of Systems Vital Signs Vitals Vital Signs Date Temp Pulse Resp B/P (MAP) Pulse Ox O2 O2 Flow FiO2 Time Delivery Rate 03/05/19 99.0 59 18 115/66 97 Room Air 13:50 (82) Intake and Output 03/04/19 03/04/19 03/05/19 1515:00 23:00 07:00 IntakeIntake Total 800 ml 440 ml OutputOutput Total 1 ml BalanceBalance 800 ml 439 ml Exam Free Text/Dictation Constitutional: NAD, well developed; somnolent Psych: nl mood Head: normocephalic, atraumatic Eyes: nl conjunctiva, EOMI, nl lids, nl sclera ENMT: nl external ears & nose, no nl lips & teeth (poor dentition), mucosa pink and moist Neck: supple, non-tender; No jvd Respiratory: normal air movement; No congested cough, No labored breathing Cardiovascular: regular rate and rhythm, nl pulses; No edema Gastrointestinal: soft, non-distended, min tender, no rebound Genitourinary - Female: nl external genitalia Musculoskeletal: nl extremities to inspection, Extremities: normal pulses Neurological: nl speech, no normal strength (generalized weakness) Skin: No rash or lesions, left hip wound: packed, scant drainage, granulating, no odor; sacral wound: Packed, scant drainage Lymph: nl lymph nodes ALEK HANDLEY MD March 05, 2019 17:58
--- NOTE | 2019-03-05 18:32 | CONS ---
Assessment/Plan Assessment/Plan Assessment/Plan (Daily) #Anemia -patient's initial Hg of 2.6 was likely secondary to GIB and perforated viscous. Stool ob at that time was negative. -anemia panel is consistent with iron deficiency -s/p Ferrlecit 125 mg IV x 5 days completed 01/30. Hg stable > 9. last checked on 02/19 #Sepsis -2/2 UTI and wound infection -now off antibiotics #Perforated viscous -continue conservative management per surgery -pt is now stable #JACKIE- resolved -renal following -Creatine wnl to 0.99 Patient seen in collaboration with Dr Dumont. Consultation Date/Type/Reason Admit Date/Time Jan 16, 2019 at 23:33 Initial Consult Date 01/25/19 Type of Consult Hematology/oncology Reason for Consultation [place] Requesting Provider: ALLISON WOLFF Date/Time of Note DATE: 03/05/19 TIME: 18:31 24 HR Interval Summary Free Text/Dictation Sleeping; easily awakens when aclled by name -seems comfortable Hgb stable no new events reported last night dw staff Exam/Review of Systems Exam Vitals Vital Signs Date Temp Pulse Resp B/P (MAP) Pulse Ox O2 O2 Flow FiO2 Time Delivery Rate 03/05/19 99.0 59 18 115/66 97 Room Air 13:50 (82) Intake and Output 03/04/19 03/04/19 03/05/19 1414:59 22:59 06:59 IntakeIntake Total 800 ml 440 ml OutputOutput Total 1 ml BalanceBalance 800 ml 439 ml Constitutional: alert, well developed Psych: nl mood/affect Head: normocephalic Eyes: nl lids, nl sclera ENMT: nl external ears & nose Neck: non-tender Respiratory: clear to auscultation Cardiovascular: nl pulses, other (s1s2) Gastrointestinal: soft, non-tender Musculoskeletal: muscle weakness Extremities: normal pulses Neurological: nl speech, other (alert/reponsive) Lymph: nontender Results Results 24hrs Laboratory Tests Test 03/04/19 20:35 03/05/19 08:23 03/05/19 12:18 03/05/19 17:14 Bedside Glucose 125 136 183 122 Medications Medication Current Medications Ipratropium [place] (Atrovent Hfa) 4 puff Q2H RESP THERAPY PRN INH SHORTNESS OF BREATH; Start 01/17/19 at 00:00 Acetaminophen (Tylenol Liquid) 650 mg Q6H PRN PO PAIN LEVEL 1-3 OR FEVER; Start 01/17/19 at 00:00 Miscellaneous Information 1 ea NOTE XX ; Start 01/17/19 at 11:00 Glucose (Glutose) 15 gm Q15M PRN PO DECREASED GLUCOSE; Start 01/17/19 at 11:00 Glucose (Glutose) 22.5 gm Q15M PRN PO DECREASED GLUCOSE; Start 01/17/19 at 11:00 Dextrose (D50w Syringe) 25 ml Q15M PRN IV DECREASED GLUCOSE; Start 01/17/19 at 11:00 Dextrose (D50w Syringe) 50 ml Q15M PRN IV DECREASED GLUCOSE; Start 01/17/19 at 11:00 Glucagon (Glucagen) 1 mg Q15M PRN IM DECREASED GLUCOSE; Start 01/17/19 at 11:00 Glucose (Glutose) 15 gm Q15M PRN BUCCAL DECREASED GLUCOSE; Start 01/17/19 at 11:00 Collagenase (Santyl) 1 applic DAILY TOP Last administered on 03/05/19 08:24; Admin Dose 1 APPLIC; Start 01/17/19 at 17:00 Carvedilol (Coreg) 3.125 mg BID PO Last administered on 03/05/19 08:25; Admin Dose 3.125 MG; Start 01/21/19 at 09:00 Sodium Hypochlorite (Dakins Diluted ()) 1 applic DAILY TP Last administered on 03/05/19 08:26; Admin Dose 1 APPLIC; Start 01/28/19 at 09:40 Citalopram Hydrobromide (Celexa) 10 mg DAILY PO Last administered on 03/05/19 08:24; Admin Dose 10 MG; Start 01/30/19 at 09:00 Insulin Aspart (Novolog Insulin Pen) NOVOLOG *MILD* ALGORITHM WITH MEALS BEDTIME SC Last administered on 03/05/19 12:20; Admin Dose 1 UNIT; Start 01/30/19 at 08:00 Baclofen (Lioresal) 5 mg TID PO Last administered on 03/05/19 12:19; Admin Dose 5 MG; Start 02/01/19 at 21:00 Lorazepam (Ativan) 0.5 mg Q8H PRN PO ANXIETY Last administered on 03/04/19 17:54; Admin Dose 0.5 MG; Start 02/02/19 at 12:00 Oxycodone/ Acetaminophen (Percocet (5/ 325)) 1 tab Q6H PRN PO MODERATE PAIN LEVEL 4-6 Last administered on 03/05/19 16:20; Admin Dose 1 TAB; Start 02/07/19 at 14:30 Diazepam (Valium) 2 mg TID PRN PO anxiety Last administered on 03/03/19 17:03; Admin Dose 2 MG; Start 02/11/19 at 13:00 Clonidine (Catapres) 0.1 mg Q8H PRN PO SBP>170; Start 02/19/19 at 11:30 Polyethylene Glycol (Miralax) 17 gm DAILY PRN PO CONSTIPATION Last administered on 02/25/19 17:10; Admin Dose 17 GM; Start 02/25/19 at 13:00 Polyethylene Glycol (Miralax) 17 gm BID PO Last administered on 03/05/19 08:23; Admin Dose 17 GM; Start 02/26/19 at 14:30 Docusate Sodium (Colace) 100 mg BID PO Last administered on 03/05/19 08:24; Admin Dose 100 MG; Start 02/26/19 at 14:30 Miscellaneous Information (*Order Clarification Bulletin) MEDICATION REQUIRES CLARIFICATION:PLE... Q8H XX ; Start 03/01/19 at 09:30 Loratadine (Claritin) 10 mg DAILY PO Last administered on 03/05/19 08:25; Admi n Dose 10 MG; Start 03/03/19 at 14:30 Guaifenesin (Mucinex) 600 mg BID PO Last administered on 03/05/19 08:24; Admin Dose 600 MG; Start 03/03/19 at 15:30 SHELBIE MARTINES March 05, 2019 18:32
[2019-03-05] MEDS: DIAZEPAM 2 MG TAB PO PRN (19:47)
[2019-03-05 19:56] VITALS: BP 145/81; PULSE 75; RESP 18
[2019-03-06 02:16] VITALS: BP 136/89; PULSE 63; RESP 18
[2019-03-06] MEDS: OXYCODONE/ACETAMINOPHEN (5/325) TAB PO PRN ×3 (04:43→17:49)
[2019-03-06 07:15] VITALS: BP 124/70; PULSE 16; PULSE 60; RESP 16
[2019-03-06] MEDS: INSULIN ASPART [NOVOLOG] 3 ML PEN SC SCH ×4 (08:00→21:00)
[2019-03-06] MEDS: CITALOPRAM 20 MG TAB PO SCH (08:16)
[2019-03-06] MEDS: LORAZEPAM 0.5 MG TAB PO PRN ×2 (08:17→16:36)
[2019-03-06] MEDS: DOCUSATE SODIUM 100 MG CAP PO SCH ×2 (08:17→21:29)
[2019-03-06] MEDS: BACLOFEN 10 MG TAB PO SCH ×3 (08:17→21:29)
[2019-03-06] MEDS: LORATADINE 10 MG TAB PO SCH (08:17)
[2019-03-06] MEDS: GUAIFENESIN LA 600 MG TABSR PO SCH ×2 (08:17→21:00)
[2019-03-06] MEDS: COLLAGENASE 5 GM (UD JAR) TOP SCH (08:18)
[2019-03-06] MEDS: POLYETHYLENE GLYCOL 17 GM PACKET PO SCH ×2 (08:18→21:29)
[2019-03-06] MEDS: DAKINS 0.0125%(1/40) 473 ML SOLUTION TP SCH (08:20)
[2019-03-06] MEDS: BALSAM PERU/CASTOR OIL 60 GM TUBE TOP SCH ×2 (08:20→21:32)
--- NOTE | 2019-03-06 10:28 | PN ---
Date/Time of Note Date/Time of Note DATE: 03/06/19 TIME: 10:26 Assessment/Plan VTE Prophylaxis Risk score (from Nsg)>0 risk: 5 Pharmacological prophylaxis: LMWH Lines/Catheters IV Catheter Type (from Nrsg): Peripheral IV Urinary Cath still in place: No Assessment/Plan Hospital Course 59 yo female with chronic debility and leg weakness who presented with sepsis, severe anemia, and perforated viscus Perforated viscus: Resolved -Status post conservative management per surgery Hip OM: - s/p Abx course per ID Macrocytic anemia secondary to elevated reticulocyte count - Status post 4 units of packed red blood cells - stable Iron deficiency: - s/p IV iron Acute kidney injury secondary to severe septic shock - Renal function improved to baseline B/l LE weakness with debility - PT/OT -Placement pending Anxiety: - Valium TID PRN Nasal congestion-improving -Claritin and Mucinex Prophylaxis: Lovenox Discharge planning; To SNF when accepted. Antibiotics are completed. Alternatively could return to previous living situation if family is willing to accept Results 24hrs Laboratory Tests Test 03/05/19 12:18 03/05/19 17:14 03/05/19 20:52 03/06/19 08:15 Bedside Glucose 183 122 139 98 Subjective 24 Hr Interval Summary Constitutional: no complaints Exam/Review of Systems Exam Vitals Vital Signs Date Temp Pulse Resp B/P (MAP) Pulse Ox O2 O2 Flow FiO2 Time Delivery Rate 03/06/19 98.4 60 16 124/70 97 Room Air 07:15 (88) Intake and Output 03/05/19 03/05/19 03/06/19 1515:00 23:00 07:00 IntakeIntake Total 440 ml BalanceBalance 440 ml Constitutional: alert, oriented Respiratory: clear to auscultation Cardiovascular: regular rate and rhythm Gastrointestinal: soft; No distended Musculoskeletal: nl extremities to inspection Results Results 24hrs Laboratory Tests Test 03/05/19 12:18 03/05/19 17:14 03/05/19 20:52 03/06/19 08:15 Bedside Glucose 183 122 139 98 Medications Medication Current Medications Ipratropium [place] (Atrovent Hfa) 4 puff Q2H RESP THERAPY PRN INH SHORTNESS OF BREATH; Start 01/17/19 at 00:00 Acetaminophen (Tylenol Liquid) 650 mg Q6H PRN PO PAIN LEVEL 1-3 OR FEVER; Start 01/17/19 at 00:00 Miscellaneous Information 1 ea NOTE XX ; Start 01/17/19 at 11:00 Glucose (Glutose) 15 gm Q15M PRN PO DECREASED GLUCOSE; Start 01/17/19 at 11:00 Glucose (Glutose) 22.5 gm Q15M PRN PO DECREASED GLUCOSE; Start 01/17/19 at 11:00 Dextrose (D50w Syringe) 25 ml Q15M PRN IV DECREASED GLUCOSE; Start 01/17/19 at 11:00 Dextrose (D50w Syringe) 50 ml Q15M PRN IV DECREASED GLUCOSE; Start 01/17/19 at 11:00 Glucagon (Glucagen) 1 mg Q15M PRN IM DECREASED GLUCOSE; Start 01/17/19 at 11:00 Glucose (Glutose) 15 gm Q15M PRN BUCCAL DECREASED GLUCOSE; Start 01/17/19 at 11:00 Collagenase (Santyl) 1 applic DAILY TOP Last administered on 03/06/19 08:18; Admin Dose 1 APPLIC; Start 01/17/19 at 17:00 Carvedilol (Coreg) 3.125 mg BID PO Last administered on 03/06/19 08:18; Admin Dose 3.125 MG; Start 01/21/19 at 09:00 Sodium Hypochlorite (Dakins Diluted ()) 1 applic DAILY TP Last administered on 03/06/19 08:20; Admin Dose 1 APPLIC; Start 01/28/19 at 09:40 Citalopram Hydrobromide (Celexa) 10 mg DAILY PO Last administered on 03/06/19 08:16; Admin Dose 10 MG; Start 01/30/19 at 09:00 Insulin Aspart (Novolog Insulin Pen) NOVOLOG *MILD* ALGORITHM WITH MEALS BEDTIME SC Last administered on 03/05/19 12:20; Admin Dose 1 UNIT; Start 01/30/19 at 08:00 Baclofen (Lioresal) 5 mg TID PO Last administered on 03/06/19 08:17; Admin Dose 5 MG; Start 02/01/19 at 21:00 Lorazepam (Ativan) 0.5 mg Q8H PRN PO ANXIETY Last administered on 03/06/19 08:17; Admin Dose 0.5 MG; Start 02/02/19 at 12:00 Oxycodone/ Acetaminophen (Percocet (5/ 325)) 1 tab Q6H PRN PO MODERATE PAIN LEVEL 4-6 Last administered on 03/06/19 04:43; Admin Dose 1 TAB; Start 02/07/19 at 14:30 Diazepam (Valium) 2 mg TID PRN PO anxiety Last administered on 03/05/19 19:47; Admin Dose 2 MG; Start 02/11/19 at 13:00 Clonidine (Catapres) 0.1 mg Q8H PRN PO SBP>170; Start 02/19/19 at 11:30 Polyethylene Glycol (Miralax) 17 gm DAILY PRN PO CONSTIPATION Last administered on 02/25/19 17:10; Admin Dose 17 GM; Start 02/25/19 at 13:00 Polyethylene Glycol (Miralax) 17 gm BID PO Last administered on 03/06/19 08:18; Admin Dose 17 GM; Start 02/26/19 at 14:30 Docusate Sodium (Colace) 100 mg BID PO Last administered on 03/06/19 08:17; Admin Dose 100 MG; Start 02/26/19 at 14:30 Miscellaneous Information (*Order Clarification Bulletin) MEDICATION REQUIRES CLARIFICATION:PLE... Q8H XX ; Start 03/01/19 at 09:30 Loratadine (Claritin) 10 mg DAILY PO Last administered on 03/06/19 08:17; Admin Dose 10 MG; Start 03/03/19 at 14:30 Guaifenesin (Mucinex) 600 mg BID PO Last administered on 03/06/19 08:17; Admin Dose 600 MG; Start 03/03/19 at 15:30 ALLISON WOLFF March 06, 2019 10:28
--- NOTE | 2019-03-06 11:41 | CONS ---
Assessment/Plan Assessment/Plan Assessment/Plan (Daily) #Anemia -patient's initial Hg of 2.6 was likely secondary to GIB and perforated viscous. Stool ob at that time was negative. -anemia panel is consistent with iron deficiency -s/p Ferrlecit 125 mg IV x 5 days completed 01/30. Hg stable > 9. last checked on 02/19 #Sepsis -2/2 UTI and wound infection -now off antibiotics #Perforated viscous -continue conservative management per surgery -pt is now stable #JACKIE- resolved -renal following -Creatine wnl to 0.99 Patient seen in collaboration with Dr Dumont. Consultation Date/Type/Reason Admit Date/Time Jan 16, 2019 at 23:33 Initial Consult Date 01/25/19 Type of Consult Hematology/oncology Reason for Consultation [place] Requesting Provider: ALLISON WOLFF Date/Time of Note DATE: 03/06/19 TIME: 11:40 24 HR Interval Summary Free Text/Dictation -seems comfortable Hgb stable no new events reported last night dw staff Detailed Summary ENT: no complaints Respiratory: no complaints Cardiovascular: no complaints Gastrointestinal: no complaints Genitourinary: no complaints Musculoskeletal: restricted range of motion Neurologic: no complaints Psychological: nl mood/affect Exam/Review of Systems Exam Vitals Vital Signs Date Temp Pulse Resp B/P (MAP) Pulse Ox O2 O2 Flow FiO2 Time Delivery Rate 03/06/19 98.4 60 16 124/70 97 Room Air 07:15 (88) Intake and Output 03/05/19 03/05/19 03/06/19 1414:59 22:59 06:59 IntakeIntake Total 440 ml BalanceBalance 440 ml Constitutional: alert, well developed Psych: nl mood/affect Eyes: nl lids, nl sclera Neck: non-tender Respiratory: clear to auscultation Cardiovascular: nl pulses, other (s1s2) Gastrointestinal: non-tender Extremities: normal pulses Neurological: nl speech, other (alert responsie) Lymph: nontender Results Results 24hrs Laboratory Tests Test 03/05/19 12:18 03/05/19 17:14 03/05/19 20:52 03/06/19 08:15 Bedside Glucose 183 122 139 98 Medications Medication Current Medications Ipratropium [place] (Atrovent Hfa) 4 puff Q2H RESP THERAPY PRN INH SHORTNESS OF BREATH; Start 01/17/19 at 00:00 Acetaminophen (Tylenol Liquid) 650 mg Q6H PRN PO PAIN LEVEL 1-3 OR FEVER; Start 01/17/19 at 00:00 Miscellaneous Information 1 ea NOTE XX ; Start 01/17/19 at 11:00 Glucose (Glutose) 15 gm Q15M PRN PO DECREASED GLUCOSE; Start 01/17/19 at 11:00 Glucose (Glutose) 22.5 gm Q15M PRN PO DECREASED GLUCOSE; Start 01/17/19 at 11:00 Dextrose (D50w Syringe) 25 ml Q15M PRN IV DECREASED GLUCOSE; Start 01/17/19 at 11:00 Dextrose (D50w Syringe) 50 ml Q15M PRN IV DECREASED GLUCOSE; Start 01/17/19 at 11:00 Glucagon (Glucagen) 1 mg Q15M PRN IM DECREASED GLUCOSE; Start 01/17/19 at 11:00 Glucose (Glutose) 15 gm Q15M PRN BUCCAL DECREASED GLUCOSE; Start 01/17/19 at 11:00 Collagenase (Santyl) 1 applic DAILY TOP Last administered on 03/06/19 08:18; Admin Dose 1 APPLIC; Start 01/17/19 at 17:00 Carvedilol (Coreg) 3.125 mg BID PO Last administered on 03/06/19 08:18; Admin Dose 3.125 MG; Start 01/21/19 at 09:00 Sodium Hypochlorite (Dakins Diluted ()) 1 applic DAILY TP Last administered on 03/06/19 08:20; Admin Dose 1 APPLIC; Start 01/28/19 at 09:40 Citalopram Hydrobromide (Celexa) 10 mg DAILY PO Last administered on 03/06/19 08:16; Admin Dose 10 MG; Start 01/30/19 at 09:00 Insulin Aspart (Novolog Insulin Pen) NOVOLOG *MILD* ALGORITHM WITH MEALS BEDTIME SC Last administered on 03/05/19 12:20; Admin Dose 1 UNIT; Start 01/30/19 at 08:00 Baclofen (Lioresal) 5 mg TID PO Last administered on 03/06/19 08:17; Admin Dose 5 MG; Start 02/01/19 at 21:00 Lorazepam (Ativan) 0.5 mg Q8H PRN PO ANXIETY Last administered on 03/06/19 08:17; Admin Dose 0.5 MG; Start 02/02/19 at 12:00 Oxycodone/ Acetaminophen (Percocet (5/ 325)) 1 tab Q6H PRN PO MODERATE PAIN LEVEL 4-6 Last administered on 03/06/19 04:43; Admin Dose 1 TAB; Start 02/07/19 at 14:30 Diazepam (Valium) 2 mg TID PRN PO anxiety Last administered on 03/05/19 19:47; Admin Dose 2 MG; Start 02/11/19 at 13:00 Clonidine (Catapres) 0.1 mg Q8H PRN PO SBP>170; Start 02/19/19 at 11:30 Polyethylene Glycol (Miralax) 17 gm DAILY PRN PO CONSTIPATION Last administered on 02/25/19 17:10; Admin Dose 17 GM; Start 02/25/19 at 13:00 Polyethylene Glycol (Miralax) 17 gm BID PO Last administered on 03/06/19 08:18; Admin Dose 17 GM; Start 02/26/19 at 14:30 Docusate Sodium (Colace) 100 mg BID PO Last administered on 03/06/19 08:17; Admin Dose 100 MG; Start 02/26/19 at 14:30 Miscellaneous Information (*Order Clarification Bulletin) MEDICATION REQUIRES CLARIFICATION:PLE... Q8H XX ; Start 03/01/19 at 09:30 Loratadine (Claritin) 10 mg DAILY PO Last administered on 03/06/19 08:17; Admin Dose 10 MG; Start 03/03/19 at 14:30 Guaifenesin (Mucinex) 600 mg BID PO Last administered on 03/06/19 08:17; Admin Dose 600 MG; Start 03/03/19 at 15:30 Enoxaparin Sodium (Lovenox) 40 mg DAILY SC ; Start 03/07/19 at 09:00 SHELBIE MARTINES March 06, 2019 11:41
[2019-03-06 13:49] VITALS: BP 123/68; PULSE 16; RESP 16
[2019-03-06 20:22] VITALS: BP 124/71; PULSE 66; RESP 18
--- NOTE | 2019-03-06 23:21 | PN ---
Date/Time of Note Date/Time of Note DATE: 03/06/19 TIME: 23:19 Assessment/Plan Lines/Catheters IV Catheter Type (from [facility]): Peripheral IV Valadez in Place (from [facility]): No Assessment/Plan Chief Complaint/Hosp Course 1. Multiple wounds: + Wound cultures; wounds healing -Continue local care> can cont same tx as outpatient -frequent turning and off-loading -low air loss mattress -vitamin c -short term zinc -optimize nutrition -Debridement as needed > refused 2. Pneumoperitoneum with likely perforation of the bladder. Previously family did not consent to proceeding to surgery and she significantly improved with conservative treatments and extubated; CT cystogram noted without contrast leak. -Diet as tolerated -DC okay from surgical standpoint. Will need urology follow-up 3. Hypochromic anemia: Status post PRBC transfusion, H&H stable -Monitor and transfuse as needed 4. UTI: -abx per sensitivity -frequent bladder emptying/cath care 5. Transaminitis: Likely 2/2 #5 -Trend 6. NSTEMI: -Cardiac optimization>defer to cards 7. Possible left knee effusion -Per medical team; consider Ortho consult 8. Anxiety: Currently on Ativan -Psych optimization Thank you Subjective 24 Hr Interval Summary No fevers, chills, sob, congested cough, cp, palpitations, keita, dizziness, n/v/d/dysuria, excessive wound drainage, change in wound. Exam/Review of Systems Vital Signs Vitals Vital Signs Date Temp Pulse Resp B/P (MAP) Pulse Ox O2 O2 Flow FiO2 Time Delivery Rate 03/06/19 98.2 66 18 124/71 97 20:22 (88) 03/06/19 Room Air 13:49 Intake and Output 03/05/19 03/05/19 03/06/19 1515:00 23:00 07:00 IntakeIntake Total 440 ml BalanceBalance 440 ml Exam Free Text/Dictation Constitutional: NAD, well developed; somnolent Psych: nl mood Head: normocephalic, atraumatic Eyes: nl conjunctiva, EOMI, nl lids, nl sclera ENMT: nl external ears & nose, no nl lips & teeth (poor dentition), mucosa pink and moist Neck: supple, non-tender; No jvd Respiratory: normal air movement; No congested cough, No labored breathing Cardiovascular: regular rate and rhythm, nl pulses; No edema Gastrointestinal: soft, non-distended, min tender, no rebound Genitourinary - Female: nl external genitalia Musculoskeletal: nl extremities to inspection, Extremities: normal pulses Neurological: nl speech, no normal strength (generalized weakness) Skin: No rash or lesions, left hip wound: packed, scant drainage, granulating, no odor; sacral wound: Packed, scant drainage Lymph: nl lymph nodes ALEK HANDLEY MD March 06, 2019 23:21
[2019-03-07 01:57] VITALS: BP 159/77; PULSE 57; RESP 18
[2019-03-07] MEDS: OXYCODONE/ACETAMINOPHEN (5/325) TAB PO PRN ×4 (05:30→23:46)
[2019-03-07] MEDS: INSULIN ASPART [NOVOLOG] 3 ML PEN SC SCH ×4 (07:59→20:46)
[2019-03-07 08:00] VITALS: BP 125/71; PULSE 55; RESP 16
[2019-03-07] MEDS: GUAIFENESIN LA 600 MG TABSR PO SCH ×2 (08:44→20:44)
[2019-03-07] MEDS: LORATADINE 10 MG TAB PO SCH (08:44)
[2019-03-07] MEDS: BACLOFEN 10 MG TAB PO SCH ×3 (08:45→20:44)
[2019-03-07] MEDS: DOCUSATE SODIUM 100 MG CAP PO SCH ×2 (08:45→20:44)
[2019-03-07] MEDS: CITALOPRAM 20 MG TAB PO SCH (08:46)
[2019-03-07] MEDS: POLYETHYLENE GLYCOL 17 GM PACKET PO SCH ×2 (08:47→20:45)
[2019-03-07] MEDS: COLLAGENASE 5 GM (UD JAR) TOP SCH (08:47)
[2019-03-07] MEDS: BALSAM PERU/CASTOR OIL 60 GM TUBE TOP SCH ×2 (08:48→20:48)
[2019-03-07] MEDS: DAKINS 0.0125%(1/40) 473 ML SOLUTION TP SCH (08:48)
[2019-03-07] MEDS: ENOXAPARIN 40 MG/0.4 ML SYG SC SCH ×2 (08:49→08:52)
[2019-03-07 14:00] VITALS: BP 113/63; PULSE 65; RESP 18
[2019-03-07] MEDS: LORAZEPAM 0.5 MG TAB PO PRN (16:02)
--- NOTE | 2019-03-07 17:05 | PN ---
Date/Time of Note Date/Time of Note DATE: 03/07/19 TIME: 17:05 Assessment/Plan VTE Prophylaxis Risk score (from Ns)>0 risk: 5 SCD applied (from Ns): Yes Pharmacological prophylaxis: heparin Lines/Catheters IV Catheter Type (from Nrs): Peripheral IV Urinary Cath still in place: No Assessment/Plan Hospital Course EXAM: Well appearing, in NAD, Aox3 RRR CTAB Soft nt nd Contracted LEs L hip pressure ulcer 59 yo female with chronic debility and leg weakness who presented with sepsis, severe anemia, and perforated viscus Perforated viscus: - conservative management per surgery - resolved Hip OM: - s/p Abx course per ID Macrocytic anemia secondary to elevated reticulocyte count - Status post 4 units of packed red blood cells - stable Iron deficiency: - s/p IV iron Acute kidney injury secondary to severe septic shock - Renal function improved to baseline B/l LE weakness: - PT/OT Anxiety: - Valium TID PRN Prophylaxis: SCDs, Protonix Discharge planning; To SNF when accepted. Antibiotics are completed. Alternatively could return to previous living situation if family is willing to accept Result Diagram: 03/07/19 0459 03/07/19 0459 Results 24hrs Laboratory Tests Test 03/06/19 17:12 03/06/19 21:28 03/07/19 04:59 03/07/19 07:56 Bedside Glucose 122 144 137 White Blood Count 5.5 Red Blood Count 3.51 L Hemoglobin 10.4 L Hematocrit 32.1 L Mean Corpuscular 91.5 Volume Mean Corpuscular 29.6 Hemoglobin Mean Corpuscular 32.4 Hemoglobin Concent Red Cell 14.1 Distribution Width Platelet Count 216 Mean Platelet Volume 10.5 H Immature 0.200 Granulocytes % Neutrophils % 49.3 Lymphocytes % 38.0 Monocytes % 7.8 Eosinophils % 4.0 Basophils % 0.7 Nucleated Red Blood 0.0 Cells % Immature 0.010 Granulocytes # Neutrophils # 2.7 Lymphocytes # 2.1 Monocytes # 0.4 Eosinophils # 0.2 Basophils # 0.0 Nucleated Red Blood 0.0 Cells # Sodium Level 140 Potassium Level 4.3 Chloride Level 105 Carbon Dioxide Level 25 Anion Gap 10 Blood Urea Nitrogen 62 H Creatinine 1.16 H Est Glomerular 48 L Filtrat Rate mL/min Glucose Level 108 Calcium Level 10.2 Phosphorus Level 5.0 H Magnesium Level 2.2 Test 03/07/19 11:33 03/07/19 16:06 Bedside Glucose 158 117 Subjective 24 Hr Interval Summary Free Text/Dictation No change to clinical status Awaiting placement Exam/Review of Systems Exam Vitals Vital Signs Date Temp Pulse Resp B/P (MAP) Pulse Ox O2 O2 Flow FiO2 Time Delivery Rate 03/07/19 98.3 65 18 113/63 98 14:00 (80) 03/06/19 Room Air 13:49 Intake and Output 03/06/19 03/06/19 03/07/19 1515:00 23:00 07:00 IntakeIntake Total 600 ml BalanceBalance 600 ml Results Results 24hrs Laboratory Tests Test 03/06/19 17:12 03/06/19 21:28 03/07/19 04:59 03/07/19 07:56 Bedside Glucose 122 144 137 White Blood Count 5.5 Red Blood Count 3.51 L Hemoglobin 10.4 L Hematocrit 32.1 L Mean Corpuscular 91.5 Volume Mean Corpuscular 29.6 Hemoglobin Mean Corpuscular 32.4 Hemoglobin Concent Red Cell 14.1 Distribution Width Platelet Count 216 Mean Platelet Volume 10.5 H Immature 0.200 Granulocytes % Neutrophils % 49.3 Lymphocytes % 38.0 Monocytes % 7.8 Eosinophils % 4.0 Basophils % 0.7 Nucleated Red Blood 0.0 Cells % Immature 0.010 Granulocytes # Neutrophils # 2.7 Lymphocytes # 2.1 Monocytes # 0.4 Eosinophils # 0.2 Basophils # 0.0 Nucleated Red Blood 0.0 Cells # Sodium Level 140 Potassium Level 4.3 Chloride Level 105 Carbon Dioxide Level 25 Anion Gap 10 Blood Urea Nitrogen 62 H Creatinine 1.16 H Est Glomerular 48 L Filtrat Rate mL/min Glucose Level 108 Calcium Level 10.2 Phosphorus Level 5.0 H Magnesium Level 2.2 Test 03/07/19 11:33 03/07/19 16:06 Bedside Glucose 158 117 Medications Medication Current Medications Ipratropium [place] (Atrovent Hfa) 4 puff Q2H RESP THERAPY PRN INH SHORTNESS OF BREATH; Start 01/17/19 at 00:00 Acetaminophen (Tylenol Liquid) 650 mg Q6H PRN PO PAIN LEVEL 1-3 OR FEVER; Start 01/17/19 at 00:00 Miscellaneous Information 1 ea NOTE XX ; Start 01/17/19 at 11:00 Glucose (Glutose) 15 gm Q15M PRN PO DECREASED GLUCOSE; Start 01/17/19 at 11:00 Glucose (Glutose) 22.5 gm Q15M PRN PO DECREASED GLUCOSE; Start 01/17/19 at 11:00 Dextrose (D50w Syringe) 25 ml Q15M PRN IV DECREASED GLUCOSE; Start 01/17/19 at 11:00 Dextrose (D50w Syringe) 50 ml Q15M PRN IV DECREASED GLUCOSE; Start 01/17/19 at 11:00 Glucagon (Glucagen) 1 mg Q15M PRN IM DECREASED GLUCOSE; Start 01/17/19 at 11:00 Glucose (Glutose) 15 gm Q15M PRN BUCCAL DECREASED GLUCOSE; Start 01/17/19 at 11:00 Collagenase (Santyl) 1 applic DAILY TOP Last administered on 03/07/19 08:47; Admin Dose 1 APPLIC; Start 01/17/19 at 17:00 Carvedilol (Coreg) 3.125 mg BID PO Last administered on 03/06/19 21:29; Admin Dose 3.125 MG; Start 01/21/19 at 09:00 Sodium Hypochlorite (Dakins Diluted ()) 1 applic DAILY TP Last administered on 03/07/19 08:48; Admin Dose 1 APPLIC; Start 01/28/19 at 09:40 Citalopram Hydrobromide (Celexa) 10 mg DAILY PO Last administered on 03/07/19 08:46; Admin Dose 10 MG; Start 01/30/19 at 09:00 Insulin Aspart (Novolog Insulin Pen) NOVOLOG *MILD* ALGORITHM WITH MEALS BEDTIME SC Last administered on 03/07/19 11:37; Admin Dose 1 UNIT; Start 01/30/19 at 08:00 Baclofen (Lioresal) 5 mg TID PO Last administered on 03/07/19 12:20; Admin Dose 5 MG; Start 02/01/19 at 21:00 Lorazepam (Ativan) 0.5 mg Q8H PRN PO ANXIETY Last administered on 03/07/19 16:02; Admin Dose 0.5 MG; Start 02/02/19 at 12:00 Oxycodone/ Acetaminophen (Percocet (5/ 325)) 1 tab Q6H PRN PO MODERATE PAIN LEVEL 4-6 Last administered on 03/07/19 11:30; Admin Dose 1 TAB; Start 02/07/19 at 14:30 Diazepam (Valium) 2 mg TID PRN PO anxiety Last administered on 03/05/19 19:47; Admin Dose 2 MG; Start 02/11/19 at 13:00 Clonidine (Catapres) 0.1 mg Q8H PRN PO SBP>170; Start 02/19/19 at 11:30 Polyethylene Glycol (Miralax) 17 gm DAILY PRN PO CONSTIPATION Last administered on 02/25/19 17:10; Admin Dose 17 GM; Start 02/25/19 at 13:00 Polyethylene Glycol (Miralax) 17 gm BID PO Last administered on 03/07/19 08:47; Admin Dose 17 GM; Start 02/26/19 at 14:30 Docusate Sodium (Colace) 100 mg BID PO Last administered on 03/07/19 08:45; Admin Dose 100 MG; Start 02/26/19 at 14:30 Miscellaneous Information (*Order Clarification Bulletin) MEDICATION REQUIRES CLARIFICATION:PLE... Q8H XX ; Start 03/01/19 at 09:30 Loratadine (Claritin) 10 mg DAILY PO Last administered on 03/07/19 08:44; Admin Dose 10 MG; Start 03/03/19 at 14:30 Guaifenesin (Mucinex) 600 mg BID PO Last administered on 03/07/19 08:44; Admin Dose 600 MG; Start 03/03/19 at 15:30 Enoxaparin Sodium (Lovenox) 40 mg DAILY SC ; Start 03/07/19 at 09:00 SONAL ALBERT MD March 07, 2019 17:05
[2019-03-07 20:26] VITALS: BP 139/75; PULSE 65; RESP 18
[2019-03-07] MEDS: DIAZEPAM 2 MG TAB PO PRN (20:44)
[2019-03-08 02:30] VITALS: BP 148/72; PULSE 65; RESP 18
[2019-03-08] MEDS: OXYCODONE/ACETAMINOPHEN (5/325) TAB PO PRN ×3 (07:39→19:59)
[2019-03-08] MEDS: INSULIN ASPART [NOVOLOG] 3 ML PEN SC SCH ×4 (08:00→21:00)
[2019-03-08 08:18] VITALS: BP 153/87; PULSE 54; RESP 15
[2019-03-08] MEDS: CITALOPRAM 20 MG TAB PO SCH (08:47)
[2019-03-08] MEDS: BACLOFEN 10 MG TAB PO SCH ×3 (08:47→20:00)
[2019-03-08] MEDS: DOCUSATE SODIUM 100 MG CAP PO SCH ×2 (08:47→20:01)
[2019-03-08] MEDS: COLLAGENASE 5 GM (UD JAR) TOP SCH (08:48)
[2019-03-08] MEDS: GUAIFENESIN LA 600 MG TABSR PO SCH ×2 (08:48→20:00)
[2019-03-08] MEDS: ENOXAPARIN 40 MG/0.4 ML SYG SC SCH (08:48)
[2019-03-08] MEDS: LORATADINE 10 MG TAB PO SCH (08:48)
[2019-03-08] MEDS: POLYETHYLENE GLYCOL 17 GM PACKET PO SCH ×2 (08:49→20:01)
[2019-03-08 08:52] VITALS: PULSE 62
[2019-03-08] MEDS: BALSAM PERU/CASTOR OIL 60 GM TUBE TOP SCH ×2 (08:52→21:00)
[2019-03-08] MEDS: DAKINS 0.0125%(1/40) 473 ML SOLUTION TP SCH (08:52)
[2019-03-08] MEDS: DIAZEPAM 2 MG TAB PO PRN ×2 (11:53→21:59)
--- NOTE | 2019-03-08 12:35 | CONS ---
Assessment/Plan Assessment/Plan Hospital Course (Demo Recall) #Anemia -patient's initial Hg of 2.6 was likely secondary to GIB and perforated viscous. Stool ob at that time was negative. -anemia panel is consistent with iron deficiency -s/p Ferrlecit 125 mg IV x 5 days completed 01/30. Hg stable > 9. last checked on 03/07/19 #Sepsis -2/2 UTI and wound infection -now off antibiotics #Perforated viscous -continue conservative management per surgery -pt is now stable #JACKIE -renal following -Creatine came down to 1.16 Consultation Date/Type/Reason Admit Date/Time Jan 16, 2019 at 23:33 Initial Consult Date 01/25/19 Type of Consult hematology Reason for Consultation anemia Requesting Provider: ALLISON WOLFF Date/Time of Note DATE: 03/08/19 TIME: 12:33 24 HR Interval Summary Free Text/Dictation still pending placement. PT continues to work with her. still requiring percocet Exam/Review of Systems Exam Vitals Vital Signs Date Temp Pulse Resp B/P (MAP) Pulse Ox O2 O2 Flow FiO2 Time Delivery Rate 03/08/19 62 08:52 03/08/19 98.3 15 153/87 99 Room Air 08:18 (109) Intake and Output 03/07/19 03/07/19 03/08/19 1515:00 23:00 07:00 IntakeIntake Total 1000 ml 400 ml BalanceBalance 1000 ml 400 ml Constitutional: alert, oriented Psych: no complaints Head: normocephalic Eyes: nl conjunctiva ENMT: nl external ears & nose Neck: supple Respiratory: clear to auscultation Cardiovascular: regular rate and rhythm Gastrointestinal: soft Musculoskeletal: nl extremities to inspection Results Result Diagram: 03/07/19 0459 03/07/19 0459 Results 24hrs Laboratory Tests Test 03/07/19 16:06 03/07/19 20:43 03/08/19 08:46 Bedside Glucose 117 130 134 Medications Medication Current Medications Ipratropium [place] (Atrovent Hfa) 4 puff Q2H RESP THERAPY PRN INH SHORTNESS OF BREATH; Start 01/17/19 at 00:00 Acetaminophen (Tylenol Liquid) 650 mg Q6H PRN PO PAIN LEVEL 1-3 OR FEVER; Start 01/17/19 at 00:00 Miscellaneous Information 1 ea NOTE XX ; Start 01/17/19 at 11:00 Glucose (Glutose) 15 gm Q15M PRN PO DECREASED GLUCOSE; Start 01/17/19 at 11:00 Glucose (Glutose) 22.5 gm Q15M PRN PO DECREASED GLUCOSE; Start 01/17/19 at 11:00 Dextrose (D50w Syringe) 25 ml Q15M PRN IV DECREASED GLUCOSE; Start 01/17/19 at 11:00 Dextrose (D50w Syringe) 50 ml Q15M PRN IV DECREASED GLUCOSE; Start 01/17/19 at 11:00 Glucagon (Glucagen) 1 mg Q15M PRN IM DECREASED GLUCOSE; Start 01/17/19 at 11:00 Glucose (Glutose) 15 gm Q15M PRN BUCCAL DECREASED GLUCOSE; Start 01/17/19 at 11:00 Collagenase (Santyl) 1 applic DAILY TOP Last administered on 03/08/19 08:48; Admin Dose 1 APPLIC; Start 01/17/19 at 17:00 Carvedilol (Coreg) 3.125 mg BID PO Last administered on 03/08/19 08:48; Admin Dose 3.125 MG; Start 01/21/19 at 09:00 Sodium Hypochlorite (Dakins Diluted ()) 1 applic DAILY TP Last administered on 03/08/19 08:52; Admin Dose 1 APPLIC; Start 01/28/19 at 09:40 Citalopram Hydrobromide (Celexa) 10 mg DAILY PO Last administered on 03/08/19 08:47; Admin Dose 10 MG; Start 01/30/19 at 09:00 Insulin Aspart (Novolog Insulin Pen) NOVOLOG *MILD* ALGORITHM WITH MEALS BEDTIME SC Last administered on 03/07/19 11:37; Admin Dose 1 UNIT; Start 01/30/19 at 08:00 Baclofen (Lioresal) 5 mg TID PO Last administered on 03/08/19 08:47; Admin Dose 5 MG; Start 02/01/19 at 21:00 Lorazepam (Ativan) 0.5 mg Q8H PRN PO ANXIETY Last administered on 03/07/19 16:02; Admin Dose 0.5 MG; Start 02/02/19 at 12:00 Oxycodone/ Acetaminophen (Percocet (5/ 325)) 1 tab Q6H PRN PO MODERATE PAIN LEVEL 4-6 Last administered on 03/08/19 07:39; Admin Dose 1 TAB; Start 02/07/19 at 14:30 Diazepam (Valium) 2 mg TID PRN PO anxiety Last administered on 03/08/19 11:53; Admin Dose 2 MG; Start 02/11/19 at 13:00 Clonidine (Catapres) 0.1 mg Q8H PRN PO SBP>170; Start 02/19/19 at 11:30 Polyethylene Glycol (Miralax) 17 gm DAILY PRN PO CONSTIPATION Last administered on 02/25/19 17:10; Admin Dose 17 GM; Start 02/25/19 at 13:00 Polyethylene Glycol (Miralax) 17 gm BID PO Last administered on 03/07/19 08:47; Admin Dose 17 GM; Start 02/26/19 at 14:30 Docusate Sodium (Colace) 100 mg BID PO Last administered on 03/08/19 08:47; Admin Dose 100 MG; Start 02/26/19 at 14:30 Miscellaneous Information (*Order Clarification Bulletin) MEDICATION REQUIRES CLARIFICATION:PLE... Q8H XX ; Start 03/01/19 at 09:30 Loratadine (Claritin) 10 mg DAILY PO Last administered on 03/08/19 08:48; Admin Dose 10 MG; Start 03/03/19 at 14:30 Guaifenesin (Mucinex) 600 mg BID PO Last administered on 03/08/19 08:48; Admin Dose 600 MG; Start 03/03/19 at 15:30 Enoxaparin Sodium (Lovenox) 40 mg DAILY SC ; Start 03/07/19 at 09:00 RAJI DIXON M.D. March 08, 2019 12:35
[2019-03-08 13:28] VITALS: BP 128/67; PULSE 61; RESP 16
--- NOTE | 2019-03-08 14:32 | PN ---
Date/Time of Note Date/Time of Note DATE: 03/08/19 TIME: 14:31 Assessment/Plan Lines/Catheters IV Catheter Type (from [email or web address] Peripheral IV Valadez in Place (from [facility] [[email or web address] No Assessment/Plan Chief Complaint/Hosp Course 1. Multiple wounds: + Wound cultures; wounds healing -Continue local care> cont same tx as outpatient: Placement pending -frequent turning and off-loading -low air loss mattress -vitamin c -short term zinc -optimize nutrition -Debridement as needed > refused 2. Pneumoperitoneum with likely perforation of the bladder. Previously family did not consent to proceeding to surgery and she significantly improved with conservative treatments and extubated; CT cystogram noted without contrast leak. -Diet as tolerated -DC okay from surgical standpoint. Will need urology follow-up 3. Hypochromic anemia: Status post PRBC transfusion, H&H stable -Monitor and transfuse as needed 4. UTI: -abx per sensitivity -frequent bladder emptying/cath care 5. Transaminitis: Likely 2/2 #5 -Trend 6. NSTEMI: -Cardiac optimization>defer to cards 7. Possible left knee effusion -Per medical team; consider Ortho consult 8. Anxiety: Currently on Ativan -Psych optimization Thank you. Patient seen and examined in collaboration with Dr. Osei Sanford. Subjective 24 Hr Interval Summary No fevers, chills, sob, congested cough, cp, palpitations, keita, dizziness, nausea, vomiting, diarrhea, dysuria. Feels well. Exam/Review of Systems Vital Signs Vitals Vital Signs Date Temp Pulse Resp B/P (MAP) Pulse Ox O2 O2 Flow FiO2 Time Delivery Rate 03/08/19 98.4 61 16 128/67 96 Room Air 13:28 (87) Intake and Output 03/07/19 03/07/19 03/08/19 1515:00 23:00 07:00 IntakeIntake Total 1000 ml 400 ml BalanceBalance 1000 ml 400 ml Exam Free Text/Dictation Constitutional: NAD, well developed; somnolent Psych: nl mood Head: normocephalic, atraumatic Eyes: nl conjunctiva, EOMI, nl lids, nl sclera ENMT: nl external ears & nose, no nl lips & teeth (poor dentition), mucosa pink and moist Neck: supple, non-tender; No jvd Respiratory: normal air movement; No congested cough, No labored breathing Cardiovascular: regular rate and rhythm, nl pulses; No edema Gastrointestinal: soft, non-distended, min tender, no rebound Genitourinary - Female: nl external genitalia Musculoskeletal: nl extremities to inspection, Extremities: normal pulses Neurological: nl speech, no normal strength (generalized weakness) Skin: No rash or lesions, left hip wound: packed, scant drainage, granulating, no odor; sacral wound: Packed, scant drainage Lymph: nl lymph nodes Results Result Diagram: 03/07/19 0459 03/07/19 0459 MASSIMO WATKINS NP March 08, 2019 14:32
--- NOTE | 2019-03-08 17:18 | PN ---
Date/Time of Note Date/Time of Note DATE: 03/08/19 TIME: 17:18 Assessment/Plan VTE Prophylaxis Risk score (from Nsg)>0 risk: 5 SCD applied (from Nsg): Yes Pharmacological prophylaxis: heparin Lines/Catheters IV Catheter Type (from Nrsg): Peripheral IV Urinary Cath still in place: No Assessment/Plan Hospital Course EXAM: Well appearing, in NAD, Aox3 RRR CTAB Soft nt nd Contracted LEs L hip pressure ulcer 59 yo female with chronic debility and leg weakness who presented with sepsis, severe anemia, and perforated viscus Perforated viscus: - conservative management per surgery - resolved Hip OM: - s/p Abx course per ID Macrocytic anemia secondary to elevated reticulocyte count - Status post 4 units of packed red blood cells - stable Iron deficiency: - s/p IV iron Acute kidney injury secondary to severe septic shock - Renal function improved to baseline B/l LE weakness: - PT/OT Anxiety: - Valium TID PRN Prophylaxis: SCDs, Protonix Discharge planning; To SNF when accepted. Antibiotics are completed. Alternatively could return to previous living situation if family is willing to accept Result Diagram: 03/07/19 0459 03/07/19 0459 Results 24hrs Laboratory Tests Test 03/07/19 20:43 03/08/19 08:46 03/08/19 12:44 Bedside Glucose 130 134 118 Subjective 24 Hr Interval Summary Free Text/Dictation No change to clinical status Awaiting placement Exam/Review of Systems Exam Vitals Vital Signs Date Temp Pulse Resp B/P (MAP) Pulse Ox O2 O2 Flow FiO2 Time Delivery Rate 03/08/19 98.4 61 16 128/67 96 Room Air 13:28 (87) Intake and Output 03/07/19 03/07/19 03/08/19 1515:00 23:00 07:00 IntakeIntake Total 1000 ml 400 ml BalanceBalance 1000 ml 400 ml Results Results 24hrs Laboratory Tests Test 03/07/19 20:43 03/08/19 08:46 03/08/19 12:44 Bedside Glucose 130 134 118 Medications Medication Current Medications Ipratropium [place] (Atrovent Hfa) 4 puff Q2H RESP THERAPY PRN INH SHORTNESS OF BREATH; Start 01/17/19 at 00:00 Acetaminophen (Tylenol Liquid) 650 mg Q6H PRN PO PAIN LEVEL 1-3 OR FEVER; Start 01/17/19 at 00:00 Miscellaneous Information 1 ea NOTE XX ; Start 01/17/19 at 11:00 Glucose (Glutose) 15 gm Q15M PRN PO DECREASED GLUCOSE; Start 01/17/19 at 11:00 Glucose (Glutose) 22.5 gm Q15M PRN PO DECREASED GLUCOSE; Start 01/17/19 at 11:00 Dextrose (D50w Syringe) 25 ml Q15M PRN IV DECREASED GLUCOSE; Start 01/17/19 at 11:00 Dextrose (D50w Syringe) 50 ml Q15M PRN IV DECREASED GLUCOSE; Start 01/17/19 at 11:00 Glucagon (Glucagen) 1 mg Q15M PRN IM DECREASED GLUCOSE; Start 01/17/19 at 11:00 Glucose (Glutose) 15 gm Q15M PRN BUCCAL DECREASED GLUCOSE; Start 01/17/19 at 11:00 Collagenase (Santyl) 1 applic DAILY TOP Last administered on 03/08/19at 08:48; Admin Dose 1 APPLIC; Start 01/17/19 at 17:00 Carvedilol (Coreg) 3.125 mg BID PO Last administered on 03/08/19 08:48; Admin Dose 3.125 MG; Start 01/21/19 at 09:00 Sodium Hypochlorite (Dakins Diluted ()) 1 applic DAILY TP Last administered on 03/08/19 08:52; Admin Dose 1 APPLIC; Start 01/28/19 at 09:40 Citalopram Hydrobromide (Celexa) 10 mg DAILY PO Last administered on 03/08/19 08:47; Admin Dose 10 MG; Start 01/30/19 at 09:00 Insulin Aspart (Novolog Insulin Pen) NOVOLOG *MILD* ALGORITHM WITH MEALS BEDTIME SC Last administered on 03/07/19 11:37; Admin Dose 1 UNIT; Start 01/30/19 at 08:00 Baclofen (Lioresal) 5 mg TID PO Last administered on 03/08/19 12:45; Admin Dose 5 MG; Start 02/01/19 at 21:00 Lorazepam (Ativan) 0.5 mg Q8H PRN PO ANXIETY Last administered on 03/07/19 16:02; Admin Dose 0.5 MG; Start 02/02/19 at 12:00 Oxycodone/ Acetaminophen (Percocet (5/ 325)) 1 tab Q6H PRN PO MODERATE PAIN LEVEL 4-6 Last administered on 03/08/19 13:55; Admin Dose 1 TAB; Start 02/07/19 at 14:30 Diazepam (Valium) 2 mg TID PRN PO anxiety Last administered on 03/08/19 11:53; Admin Dose 2 MG; Start 02/11/19 at 13:00 Clonidine (Catapres) 0.1 mg Q8H PRN PO SBP>170; Start 02/19/19 at 11:30 Polyethylene Glycol (Miralax) 17 gm DAILY PRN PO CONSTIPATION Last administered on 02/25/19 17:10; Admin Dose 17 GM; Start 02/25/19 at 13:00 Polyethylene Glycol (Miralax) 17 gm BID PO Last administered on 03/07/19 08:47; Admin Dose 17 GM; Start 02/26/19 at 14:30 Docusate Sodium (Colace) 100 mg BID PO Last administered on 03/08/19 08:47; Admin Dose 100 MG; Start 02/26/19 at 14:30 Miscellaneous Information (*Order Clarification Bulletin) MEDICATION REQUIRES CLARIFICATION:PLE... Q8H XX ; Start 03/01/19 at 09:30 Loratadine (Claritin) 10 mg DAILY PO Last administered on 03/08/19 08:48; Admin Dose 10 MG; Start 03/03/19 at 14:30 Guaifenesin (Mucinex) 600 mg BID PO Last administered on 03/08/19 08:48; Admin Dose 600 MG; Start 03/03/19 at 15:30 Enoxaparin Sodium (Lovenox) 40 mg DAILY SC ; Start 03/07/19 at 09:00 SONAL ALBERT MD March 08, 2019 17:18
[2019-03-08 20:28] VITALS: BP 156/85; PULSE 60; RESP 19
[2019-03-09] MEDS: OXYCODONE/ACETAMINOPHEN (5/325) TAB PO PRN ×4 (02:03→20:53)
[2019-03-09 02:33] VITALS: BP 155/70; PULSE 74; RESP 18
[2019-03-09] MEDS: LORAZEPAM 0.5 MG TAB PO PRN ×2 (06:13→23:27)
[2019-03-09 07:25] VITALS: BP 159/72; PULSE 55; RESP 18
[2019-03-09] MEDS: INSULIN ASPART [NOVOLOG] 3 ML PEN SC SCH ×4 (08:00→20:51)
[2019-03-09] MEDS: BACLOFEN 10 MG TAB PO SCH ×3 (08:33→20:51)
[2019-03-09] MEDS: CITALOPRAM 20 MG TAB PO SCH (08:33)
[2019-03-09] MEDS: GUAIFENESIN LA 600 MG TABSR PO SCH ×2 (08:33→20:51)
[2019-03-09] MEDS: LORATADINE 10 MG TAB PO SCH (08:33)
[2019-03-09] MEDS: DOCUSATE SODIUM 100 MG CAP PO SCH ×3 (08:34→21:00)
[2019-03-09] MEDS: COLLAGENASE 5 GM (UD JAR) TOP SCH (08:34)
[2019-03-09] MEDS: POLYETHYLENE GLYCOL 17 GM PACKET PO SCH ×3 (08:34→21:00)
[2019-03-09] MEDS: ENOXAPARIN 40 MG/0.4 ML SYG SC SCH (08:34)
[2019-03-09] MEDS: DAKINS 0.0125%(1/40) 473 ML SOLUTION TP SCH (08:35)
[2019-03-09] MEDS: BALSAM PERU/CASTOR OIL 60 GM TUBE TOP SCH ×2 (08:35→20:56)
[2019-03-09 13:59] VITALS: BP 125/75; PULSE 74; RESP 18
--- NOTE | 2019-03-09 14:00 | CONS ---
Assessment/Plan Assessment/Plan Hospital Course (Demo Recall) #Anemia -patient's initial Hg of 2.6 was likely secondary to GIB and perforated viscous. Stool ob at that time was negative. -anemia panel is consistent with iron deficiency -s/p Ferrlecit 125 mg IV x 5 days completed 01/30. Hg stable > 9. last checked on 03/07/19 #Sepsis -2/2 UTI and wound infection -now off antibiotics #Perforated viscous -continue conservative management per surgery -pt is now stable #JACKIE -renal following -Creatine came down to 1.16 Consultation Date/Type/Reason Admit Date/Time Jan 16, 2019 at 23:33 Initial Consult Date 01/25/19 Type of Consult hematology Reason for Consultation anemia Requesting Provider: ALLISON WOLFF Date/Time of Note DATE: 03/09/19 TIME: 13:59 24 HR Interval Summary Free Text/Dictation no acute overnight events Exam/Review of Systems Exam Vitals Vital Signs Date Temp Pulse Resp B/P (MAP) Pulse Ox O2 O2 Flow FiO2 Time Delivery Rate 03/09/19 98.6 55 18 159/72 97 Room Air 07:25 (101) Intake and Output 03/08/19 03/08/19 03/09/19 1515:00 23:00 07:00 IntakeIntake Total 840 ml 800 ml BalanceBalance 840 ml 800 ml Constitutional: alert, oriented Psych: depression Head: normocephalic Eyes: nl conjunctiva ENMT: nl external ears & nose Neck: supple Respiratory: clear to auscultation Cardiovascular: regular rate and rhythm Gastrointestinal: soft Musculoskeletal: nl extremities to inspection Results Result Diagram: 03/07/19 0459 03/07/19 0459 Results 24hrs Laboratory Tests Test 03/08/19 17:33 03/08/19 21:55 03/09/19 08:27 03/09/19 12:11 Bedside Glucose 141 116 105 115 Medications Medication Current Medications Ipratropium [place] (Atrovent Hfa) 4 puff Q2H RESP THERAPY PRN INH SHORTNESS OF BREATH; Start 01/17/19 at 00:00 Acetaminophen (Tylenol Liquid) 650 mg Q6H PRN PO PAIN LEVEL 1-3 OR FEVER; Start 01/17/19 at 00:00 Miscellaneous Information 1 ea NOTE XX ; Start 01/17/19 at 11:00 Glucose (Glutose) 15 gm Q15M PRN PO DECREASED GLUCOSE; Start 01/17/19 at 11:00 Glucose (Glutose) 22.5 gm Q15M PRN PO DECREASED GLUCOSE; Start 01/17/19 at 11:00 Dextrose (D50w Syringe) 25 ml Q15M PRN IV DECREASED GLUCOSE; Start 01/17/19 at 11:00 Dextrose (D50w Syringe) 50 ml Q15M PRN IV DECREASED GLUCOSE; Start 01/17/19 at 11:00 Glucagon (Glucagen) 1 mg Q15M PRN IM DECREASED GLUCOSE; Start 01/17/19 at 11:00 Glucose (Glutose) 15 gm Q15M PRN BUCCAL DECREASED GLUCOSE; Start 01/17/19 at 11:00 Collagenase (Santyl) 1 applic DAILY TOP Last administered on 03/09/19 08:34; Admin Dose 1 APPLIC; Start 01/17/19 at 17:00 Carvedilol (Coreg) 3.125 mg BID PO Last administered on 03/09/19 08:33; Admin Dose 3.125 MG; Start 01/21/19 at 09:00 Sodium Hypochlorite (Dakins Diluted ()) 1 applic DAILY TP Last administered on 03/09/19 08:35; Admin Dose 1 APPLIC; Start 01/28/19 at 09:40 Citalopram Hydrobromide (Celexa) 10 mg DAILY PO Last administered on 03/09/19 08:33; Admin Dose 10 MG; Start 01/30/19 at 09:00 Insulin Aspart (Novolog Insulin Pen) NOVOLOG *MILD* ALGORITHM WITH MEALS BEDTIME SC Last administered on 03/08/19 17:56; Admin Dose 1 UNIT; Start 01/30/19 at 08:00 Baclofen (Lioresal) 5 mg TID PO Last administered on 03/09/19 12:14; Admin Dose 5 MG; Start 02/01/19 at 21:00 Lorazepam (Ativan) 0.5 mg Q8H PRN PO ANXIETY Last administered on 03/09/19 06:13; Admin Dose 0.5 MG; Start 02/02/19 at 12:00 Oxycodone/ Acetaminophen (Percocet (5/ 325)) 1 tab Q6H PRN PO MODERATE PAIN LEVEL 4-6 Last administered on 03/09/19 08:32; Admin Dose 1 TAB; Start 02/07/19 at 14:30 Diazepam (Valium) 2 mg TID PRN PO anxiety Last administered on 03/08/19 21:59; Admin Dose 2 MG; Start 02/11/19 at 13:00 Clonidine (Catapres) 0.1 mg Q8H PRN PO SBP>170; Start 02/19/19 at 11:30 Polyethylene Glycol (Miralax) 17 gm DAILY PRN PO CONSTIPATION Last administered on 02/25/19 17:10; Admin Dose 17 GM; Start 02/25/19 at 13:00 Polyethylene Glycol (Miralax) 17 gm BID PO Last administered on 03/07/19 08:47; Admin Dose 17 GM; Start 02/26/19 at 14:30 Docusate Sodium (Colace) 100 mg BID PO Last administered on 03/08/19 08:47; Admin Dose 100 MG; Start 02/26/19 at 14:30 Miscellaneous Information (*Order Clarification Bulletin) MEDICATION REQUIRES CLARIFICATION:PLE... Q8H XX ; Start 03/01/19 at 09:30 Loratadine (Claritin) 10 mg DAILY PO Last administered on 03/09/19 08:33; Admin Dose 10 MG; Start 03/03/19 at 14:30 Guaifenesin (Mucinex) 600 mg BID PO Last administered on 03/09/19 08:33; Admin Dose 600 MG; Start 03/03/19 at 15:30 Enoxaparin Sodium (Lovenox) 40 mg DAILY SC ; Start 03/07/19 at 09:00 RAJI DIXON M.D. March 09, 2019 14:00
[2019-03-09] MEDS: DIAZEPAM 2 MG TAB PO PRN (15:06)
[2019-03-09 19:30] VITALS: BP 148/74; PULSE 66; RESP 18
[2019-03-09 19:33] VITALS: BP 142/67; PULSE 71; RESP 18
--- NOTE | 2019-03-10 01:13 | PN ---
Date/Time of Note Date/Time of Note DATE: 03/10/19 TIME: 01:13 Assessment/Plan Lines/Catheters IV Catheter Type (from [facility]): Peripheral IV Valadez in Place (from [facility]): No Assessment/Plan Chief Complaint/Hosp Course 1. Multiple wounds: + Wound cultures; wounds healing -Continue local care> can cont same tx as outpatient -frequent turning and off-loading -low air loss mattress -vitamin c -short term zinc -optimize nutrition -Debridement as needed > refused 2. Pneumoperitoneum with likely perforation of the bladder. Previously family did not consent to proceeding to surgery and she significantly improved with conservative treatments and extubated; CT cystogram noted without contrast leak. -Diet as tolerated -DC okay from surgical standpoint. Will need urology follow-up 3. Hypochromic anemia: Status post PRBC transfusion, H&H stable -Monitor and transfuse as needed 4. UTI: -abx per sensitivity -frequent bladder emptying/cath care 5. Transaminitis: Likely 2/2 #5 -Trend 6. NSTEMI: -Cardiac optimization>defer to cards 7. Possible left knee effusion -Per medical team; consider Ortho consult 8. Anxiety: Currently on Ativan -Psych optimization Thank you Late entry 03/09 Subjective 24 Hr Interval Summary No fevers, chills, sob, congested cough, cp, palpitations, keita, dizziness, nausea, vomiting, diarrhea, dysuria. Exam/Review of Systems Vital Signs Vitals Vital Signs Date Temp Pulse Resp B/P (MAP) Pulse Ox O2 O2 Flow FiO2 Time Delivery Rate 03/09/19 98.0 71 18 142/67 98 19:33 (92) 03/09/19 Room Air 13:59 Intake and Output 03/09/19 03/09/19 03/10/19 1515:00 23:00 07:00 IntakeIntake Total 1400 ml BalanceBalance 1400 ml Exam Free Text/Dictation Constitutional: NAD, well developed; somnolent Psych: nl mood Head: normocephalic, atraumatic Eyes: nl conjunctiva, EOMI, nl lids, nl sclera ENMT: nl external ears & nose, no nl lips & teeth (poor dentition), mucosa pink and moist Neck: supple, non-tender; No jvd Respiratory: normal air movement; No congested cough, No labored breathing Cardiovascular: regular rate and rhythm, nl pulses; No edema Gastrointestinal: soft, non-distended, min tender, no rebound Genitourinary - Female: nl external genitalia Musculoskeletal: nl extremities to inspection, Extremities: normal pulses Neurological: nl speech, no normal strength (generalized weakness) Skin: No rash or lesions, left hip wound: packed, scant drainage, granulating, no odor; sacral wound: Packed, scant drainage Lymph: nl lymph nodes Results Result Diagram: 03/07/19 0459 03/07/19 0459 ALEK HANDLEY MD March 10, 2019 01:13
--- NOTE | 2019-03-10 01:13 | PN ---
Date/Time of Note Date/Time of Note DATE: 03/07/19 TIME: 22:12 Assessment/Plan Lines/Catheters IV Catheter Type (from [facility]): Peripheral IV Valadez in Place (from [facility]): No Assessment/Plan Chief Complaint/Hosp Course 1. Multiple wounds: + Wound cultures; wounds healing -Continue local care> can cont same tx as outpatient -frequent turning and off-loading -low air loss mattress -vitamin c -short term zinc -optimize nutrition -Debridement as needed > refused 2. Pneumoperitoneum with likely perforation of the bladder. Previously family did not consent to proceeding to surgery and she significantly improved with conservative treatments and extubated; CT cystogram noted without contrast leak. -Diet as tolerated -DC okay from surgical standpoint. Will need urology follow-up 3. Hypochromic anemia: Status post PRBC transfusion, H&H stable -Monitor and transfuse as needed 4. UTI: -abx per sensitivity -frequent bladder emptying/cath care 5. Transaminitis: Likely 2/2 #5 -Trend 6. NSTEMI: -Cardiac optimization>defer to cards 7. Possible left knee effusion -Per medical team; consider Ortho consult 8. Anxiety: Currently on Ativan -Psych optimization Thank you Late entry 03/07 Subjective 24 Hr Interval Summary No fevers, chills, sob, congested cough, cp, palpitations, keita, dizziness, nausea, vomiting, diarrhea, dysuria. Feels well. Exam/Review of Systems Vital Signs Vitals Vital Signs Date Temp Pulse Resp B/P (MAP) Pulse Ox O2 O2 Flow FiO2 Time Delivery Rate 03/09/19 98.0 71 18 142/67 98 19:33 (92) 03/09/19 Room Air 13:59 Intake and Output 03/09/19 03/09/19 03/10/19 1515:00 23:00 07:00 IntakeIntake Total 1400 ml BalanceBalance 1400 ml Exam Free Text/Dictation Constitutional: NAD, well developed; somnolent Psych: nl mood Head: normocephalic, atraumatic Eyes: nl conjunctiva, EOMI, nl lids, nl sclera ENMT: nl external ears & nose, no nl lips & teeth (poor dentition), mucosa pink and moist Neck: supple, non-tender; No jvd Respiratory: normal air movement; No congested cough, No labored breathing Cardiovascular: regular rate and rhythm, nl pulses; No edema Gastrointestinal: soft, non-distended, min tender, no rebound Genitourinary - Female: nl external genitalia Musculoskeletal: nl extremities to inspection, Extremities: normal pulses Neurological: nl speech, no normal strength (generalized weakness) Skin: No rash or lesions, left hip wound: packed, scant drainage, granulating, no odor; sacral wound: Packed, scant drainage Lymph: nl lymph nodes Results Result Diagram: 03/07/19 0459 03/07/19 0459 ALEK HANDLEY MD March 10, 2019 01:13
[2019-03-10 02:07] VITALS: BP 145/71; PULSE 60; RESP 18
[2019-03-10] MEDS: OXYCODONE/ACETAMINOPHEN (5/325) TAB PO PRN ×4 (03:24→21:34)
[2019-03-10] MEDS: DIAZEPAM 2 MG TAB PO PRN (06:56)
[2019-03-10] MEDS: INSULIN ASPART [NOVOLOG] 3 ML PEN SC SCH ×4 (08:00→20:42)
[2019-03-10] MEDS: LORATADINE 10 MG TAB PO SCH (08:18)
[2019-03-10] MEDS: GUAIFENESIN LA 600 MG TABSR PO SCH ×2 (08:18→20:40)
[2019-03-10] MEDS: CITALOPRAM 20 MG TAB PO SCH (08:18)
[2019-03-10] MEDS: POLYETHYLENE GLYCOL 17 GM PACKET PO SCH ×3 (08:18→20:46)
[2019-03-10] MEDS: DOCUSATE SODIUM 100 MG CAP PO SCH ×2 (08:18→20:40)
[2019-03-10] MEDS: BACLOFEN 10 MG TAB PO SCH ×3 (08:18→20:41)
[2019-03-10] MEDS: ENOXAPARIN 40 MG/0.4 ML SYG SC SCH (08:19)
[2019-03-10] MEDS: BALSAM PERU/CASTOR OIL 60 GM TUBE TOP SCH ×2 (08:19→20:39)
[2019-03-10] MEDS: DAKINS 0.0125%(1/40) 473 ML SOLUTION TP SCH (08:19)
[2019-03-10] MEDS: COLLAGENASE 5 GM (UD JAR) TOP SCH (08:20)
--- NOTE | 2019-03-10 13:15 | CONS ---
Assessment/Plan Assessment/Plan Hospital Course (Demo Recall) #Anemia -patient's initial Hg of 2.6 was likely secondary to GIB and perforated viscous. Stool ob at that time was negative. -anemia panel is consistent with iron deficiency -s/p Ferrlecit 125 mg IV x 5 days completed 01/30. Hg stable > 9. last checked on 03/07/19 #Sepsis -2/2 UTI and wound infection -now off antibiotics #Perforated viscous -continue conservative management per surgery -pt is now stable #JACKIE -renal following -Creatine came down to 1.16 Consultation Date/Type/Reason Admit Date/Time Jan 16, 2019 at 23:33 Initial Consult Date 01/25/19 Type of Consult hematology Reason for Consultation anemia Requesting Provider: ALLISON WOLFF Date/Time of Note DATE: 03/10/19 TIME: 13:14 24 HR Interval Summary Free Text/Dictation no acute overnight events Exam/Review of Systems Exam Vitals Vital Signs Date Temp Pulse Resp B/P (MAP) Pulse Ox O2 O2 Flow FiO2 Time Delivery Rate 03/10/19 97.5 60 18 145/71 97 02:07 (95) 03/09/19 Room Air 13:59 Intake and Output 03/09/19 03/09/19 03/10/19 1414:59 22:59 06:59 IntakeIntake Total 1400 ml BalanceBalance 1400 ml Constitutional: alert, oriented Psych: depression Head: normocephalic Eyes: nl conjunctiva ENMT: nl external ears & nose Respiratory: clear to auscultation Cardiovascular: regular rate and rhythm Results Result Diagram: 03/07/19 0459 03/07/19 0459 Results 24hrs Laboratory Tests Test 03/09/19 17:05 03/09/19 20:48 03/10/19 08:17 03/10/19 12:11 Bedside Glucose 137 129 109 152 Medications Medication Current Medications Ipratropium [place] (Atrovent Hfa) 4 puff Q2H RESP THERAPY PRN INH SHORTNESS OF BREATH; Start 01/17/19 at 00:00 Acetaminophen (Tylenol Liquid) 650 mg Q6H PRN PO PAIN LEVEL 1-3 OR FEVER; Start 01/17/19 at 00:00 Miscellaneous Information 1 ea NOTE XX ; Start 01/17/19 at 11:00 Glucose (Glutose) 15 gm Q15M PRN PO DECREASED GLUCOSE; Start 01/17/19 at 11:00 Glucose (Glutose) 22.5 gm Q15M PRN PO DECREASED GLUCOSE; Start 01/17/19 at 11:00 Dextrose (D50w Syringe) 25 ml Q15M PRN IV DECREASED GLUCOSE; Start 01/17/19 at 11:00 Dextrose (D50w Syringe) 50 ml Q15M PRN IV DECREASED GLUCOSE; Start 01/17/19 at 11:00 Glucagon (Glucagen) 1 mg Q15M PRN IM DECREASED GLUCOSE; Start 01/17/19 at 11:00 Glucose (Glutose) 15 gm Q15M PRN BUCCAL DECREASED GLUCOSE; Start 01/17/19 at 11:00 Collagenase (Santyl) 1 applic DAILY TOP Last administered on 03/10/19 08:20; Admin Dose 1 APPLIC; Start 01/17/19 at 17:00 Carvedilol (Coreg) 3.125 mg BID PO Last administered on 03/10/19 08:27; Admin Dose 3.125 MG; Start 01/21/19 at 09:00 Sodium Hypochlorite (Dakins Diluted ()) 1 applic DAILY TP Last administered on 03/10/19 08:19; Admin Dose 1 APPLIC; Start 01/28/19 at 09:40 Citalopram Hydrobromide (Celexa) 10 mg DAILY PO Last administered on 03/10/19 08:18; Admin Dose 10 MG; Start 01/30/19 at 09:00 Insulin Aspart (Novolog Insulin Pen) NOVOLOG *MILD* ALGORITHM WITH MEALS BEDTIME SC Last administered on 03/10/19 12:19; Admin Dose 1 UNIT; Start 01/30/19 at 08:00 Baclofen (Lioresal) 5 mg TID PO Last administered on 03/10/19 12:12; Admin Dose 5 MG; Start 02/01/19 at 21:00 Lorazepam (Ativan) 0.5 mg Q8H PRN PO ANXIETY Last administered on 03/09/19 23:27; Admin Dose 0.5 MG; Start 02/02/19 at 12:00 Oxycodone/ Acetaminophen (Percocet (5/ 325)) 1 tab Q6H PRN PO MODERATE PAIN LEVEL 4-6 Last administered on 03/10/19 09:53; Admin Dose 1 TAB; Start 02/07/19 at 14:30 Diazepam (Valium) 2 mg TID PRN PO anxiety Last administered on 03/10/19 06:56; Admin Dose 2 MG; Start 02/11/19 at 13:00 Clonidine (Catapres) 0.1 mg Q8H PRN PO SBP>170; Start 02/19/19 at 11:30 Polyethylene Glycol (Miralax) 17 gm DAILY PRN PO CONSTIPATION Last administered on 02/25/19 17:10; Admin Dose 17 GM; Start 02/25/19 at 13:00 Polyethylene Glycol (Miralax) 17 gm BID PO Last administered on 03/07/19 08:47; Admin Dose 17 GM; Start 02/26/19 at 14:30 Docusate Sodium (Colace) 100 mg BID PO Last administered on 03/08/19 08:47; Admin Dose 100 MG; Start 02/26/19 at 14:30 Miscellaneous Information (*Order Clarification Bulletin) MEDICATION REQUIRES CLARIFICATION:PLE... Q8H XX ; Start 03/01/19 at 09:30 Loratadine (Claritin) 10 mg DAILY PO Last administered on 03/10/19 08:18; Admin Dose 10 MG; Start 03/03/19 at 14:30 Guaifenesin (Mucinex) 600 mg BID PO Last administered on 03/10/19 08:18; Admin Dose 600 MG; Start 03/03/19 at 15:30 Enoxaparin Sodium (Lovenox) 40 mg DAILY SC ; Start 03/07/19 at 09:00 Miscellaneous Information (*Order Clarification Bulletin) MEDICATION REQUIRES CLARIFICATI... Q8H XX ; Start 03/09/19 at 14:30; Stop 03/11/19 at 14:29 RAJI DIXON M.D. March 10, 2019 13:15
[2019-03-10 14:00] VITALS: BP 154/71; PULSE 73; RESP 18
--- NOTE | 2019-03-10 14:27 | PN ---
Date/Time of Note Date/Time of Note DATE: 03/10/19 TIME: 14:26 Assessment/Plan VTE Prophylaxis Risk score (from Nsg)>0 risk: 2 SCD applied (from Ns): Yes Pharmacological prophylaxis: heparin Lines/Catheters IV Catheter Type (from Nrsg): Peripheral IV Urinary Cath still in place: No Assessment/Plan Hospital Course EXAM: Well appearing, in NAD, Aox3 RRR CTAB Soft nt nd Contracted LEs L hip pressure ulcer 59 yo female with chronic debility and leg weakness who presented with sepsis, severe anemia, and perforated viscus B/l LE weakness 2.2 severe knee OA bilaterally: - PT/OT Perforated viscus: - resolved Hip OM: - s/p Abx course per ID, resolved - Valium TID PRN Prophylaxis: SCDs, Protonix Discharge planning; To SNF when accepted. Antibiotics are completed. Alternatively could return to previous living situation if family is willing to accept Result Diagram: 03/07/19 0459 03/07/19 0459 Results 24hrs Laboratory Tests Test 03/09/19 17:05 03/09/19 20:48 03/10/19 08:17 03/10/19 12:11 Bedside Glucose 137 129 109 152 Subjective 24 Hr Interval Summary Free Text/Dictation Workign with PT Doing well Exam/Review of Systems Exam Vitals Vital Signs Date Temp Pulse Resp B/P (MAP) Pulse Ox O2 O2 Flow FiO2 Time Delivery Rate 03/10/19 97.5 60 18 145/71 97 02:07 (95) 03/09/19 Room Air 13:59 Intake and Output 03/09/19 03/09/19 03/10/19 1414:59 22:59 06:59 IntakeIntake Total 1400 ml BalanceBalance 1400 ml Results Results 24hrs Laboratory Tests Test 03/09/19 17:05 03/09/19 20:48 03/10/19 08:17 03/10/19 12:11 Bedside Glucose 137 129 109 152 Medications Medication Current Medications Ipratropium [place] (Atrovent Hfa) 4 puff Q2H RESP THERAPY PRN INH SHORTNESS OF BREATH; Start 01/17/19 at 00:00 Acetaminophen (Tylenol Liquid) 650 mg Q6H PRN PO PAIN LEVEL 1-3 OR FEVER; Start 01/17/19 at 00:00 Miscellaneous Information 1 ea NOTE XX ; Start 01/17/19 at 11:00 Glucose (Glutose) 15 gm Q15M PRN PO DECREASED GLUCOSE; Start 01/17/19 at 11:00 Glucose (Glutose) 22.5 gm Q15M PRN PO DECREASED GLUCOSE; Start 01/17/19 at 11:0 0 Dextrose (D50w Syringe) 25 ml Q15M PRN IV DECREASED GLUCOSE; Start 01/17/19 at 11:00 Dextrose (D50w Syringe) 50 ml Q15M PRN IV DECREASED GLUCOSE; Start 01/17/19 at 11:00 Glucagon (Glucagen) 1 mg Q15M PRN IM DECREASED GLUCOSE; Start 01/17/19 at 11:00 Glucose (Glutose) 15 gm Q15M PRN BUCCAL DECREASED GLUCOSE; Start 01/17/19 at 11:00 Collagenase (Santyl) 1 applic DAILY TOP Last administered on 03/10/19at 08:20; Admin Dose 1 APPLIC; Start 01/17/19 at 17:00 Carvedilol (Coreg) 3.125 mg BID PO Last administered on 03/10/19 08:27; Admin Dose 3.125 MG; Start 01/21/19 at 09:00 Sodium Hypochlorite (Dakins Diluted ()) 1 applic DAILY TP Last administered on 03/10/19 08:19; Admin Dose 1 APPLIC; Start 01/28/19 at 09:40 Citalopram Hydrobromide (Celexa) 10 mg DAILY PO Last administered on 03/10/19 08:18; Admin Dose 10 MG; Start 01/30/19 at 09:00 Insulin Aspart (Novolog Insulin Pen) NOVOLOG *MILD* ALGORITHM WITH MEALS BEDTIME SC Last administered on 03/10/19 12:19; Admin Dose 1 UNIT; Start 01/30/19 at 08:00 Baclofen (Lioresal) 5 mg TID PO Last administered on 03/10/19 12:12; Admin Do se 5 MG; Start 02/01/19 at 21:00 Lorazepam (Ativan) 0.5 mg Q8H PRN PO ANXIETY Last administered on 03/09/19 23:27; Admin Dose 0.5 MG; Start 02/02/19 at 12:00 Oxycodone/ Acetaminophen (Percocet (5/ 325)) 1 tab Q6H PRN PO MODERATE PAIN LEVEL 4-6 Last administered on 03/10/19 09:53; Admin Dose 1 TAB; Start 02/07/19 at 14:30 Diazepam (Valium) 2 mg TID PRN PO anxiety Last administered on 03/10/19 06:56; Admin Dose 2 MG; Start 02/11/19 at 13:00 Clonidine (Catapres) 0.1 mg Q8H PRN PO SBP>170; Start 02/19/19 at 11:30 Polyethylene Glycol (Miralax) 17 gm DAILY PRN PO CONSTIPATION Last administered on 02/25/19 17:10; Admin Dose 17 GM; Start 02/25/19 at 13:00 Polyethylene Glycol (Miralax) 17 gm BID PO Last administered on 03/07/19 08:47; Admin Dose 17 GM; Start 02/26/19 at 14:30 Docusate Sodium (Colace) 100 mg BID PO Last administered on 03/08/19 08:47; Admin Dose 100 MG; Start 02/26/19 at 14:30 Miscellaneous Information (*Order Clarification Bulletin) MEDICATION REQUIRES CLARIFICATION:PLE... Q8H XX ; Start 03/01/19 at 09:30 Loratadine (Claritin) 10 mg DAILY PO Last administered on 03/10/19 08:18; Admin Dose 10 MG; Start 03/03/19 at 14:30 Guaifenesin (Mucinex) 600 mg BID PO Last administered on 03/10/19 08:18; Admin Dose 600 MG; Start 03/03/19 at 15:30 Enoxaparin Sodium (Lovenox) 40 mg DAILY SC ; Start 03/07/19 at 09:00 Miscellaneous Information (*Order Clarification Bulletin) MEDICATION REQUIRES CLARIFICATI... Q8H XX ; Start 03/09/19 at 14:30; Stop 03/11/19 at 14:29 SONAL ALBERT MD March 10, 2019 14:27
--- NOTE | 2019-03-10 16:33 | PN ---
Date/Time of Note Date/Time of Note DATE: 03/10/19 TIME: 16:32 Assessment/Plan Lines/Catheters IV Catheter Type (from [facility]): Peripheral IV Valadez in Place (from [facility]): No Assessment/Plan Chief Complaint/Hosp Course 1. Multiple wounds: + Wound cultures; wounds healing -Continue local care> cont same tx as outpatient: Placement pending -frequent turning and off-loading -low air loss mattress -vitamin c -short term zinc -optimize nutrition -Debridement as needed 2. Pneumoperitoneum with likely perforation of the bladder. Previously family did not consent to proceeding to surgery and she significantly improved with conservative treatments and extubated; CT cystogram noted without contrast leak. -Diet as tolerated -DC okay from surgical standpoint. Will need urology follow-up 3. Hypochromic anemia: Status post PRBC transfusion, H&H stable -Monitor and transfuse as needed 4. UTI: -abx per sensitivity -frequent bladder emptying/cath care 5. Transaminitis: Likely 2/2 #5 -Trend 6. NSTEMI: -Cardiac optimization>defer to cards 7. Possible left knee effusion -Per medical team; consider Ortho consult 8. Anxiety: Currently on Ativan -Psych optimization Thank you. Patient seen and examined in collaboration with Dr. Osei Sanford. Subjective 24 Hr Interval Summary Pending placement. Feels well. No fevers, chills, sob, congested cough, cp, palpitations, keita, dizziness, nausea, vomiting, diarrhea, dysuria. Exam/Review of Systems Vital Signs Vitals Vital Signs Date Temp Pulse Resp B/P (MAP) Pulse Ox O2 O2 Flow FiO2 Time Delivery Rate 03/10/19 99.1 73 18 154/71 97 14:00 (98) 03/09/19 Room Air 13:59 Intake and Output 03/09/19 03/09/19 03/10/19 1515:00 23:00 07:00 IntakeIntake Total 1400 ml BalanceBalance 1400 ml Exam Free Text/Dictation Constitutional: NAD, well developed; somnolent Psych: nl mood Head: normocephalic, atraumatic Eyes: nl conjunctiva, EOMI, nl lids, nl sclera ENMT: nl external ears & nose, no nl lips & teeth (poor dentition), mucosa pink and moist Neck: supple, non-tender; No jvd Respiratory: normal air movement; No congested cough, No labored breathing Cardiovascular: regular rate and rhythm, nl pulses; No edema Gastrointestinal: soft, non-distended, min tender, no rebound Genitourinary - Female: nl external genitalia Musculoskeletal: nl extremities to inspection, Extremities: normal pulses Neurological: nl speech, no normal strength (generalized weakness) Skin: No rash or lesions, left hip wound: packed, scant drainage, granulating, no odor; sacral wound: Packed, scant drainage Lymph: nl lymph nodes Results Result Diagram: 03/07/19 0459 03/07/19 0459 MASSIMO WATKINS NP March 10, 2019 16:33
[2019-03-10] MEDS: LORAZEPAM 0.5 MG TAB PO PRN (17:18)
[2019-03-10 19:59] VITALS: BP 119/66; PULSE 68; RESP 17
[2019-03-11 02:00] VITALS: BP 138/71; PULSE 72; RESP 19
[2019-03-11] MEDS: OXYCODONE/ACETAMINOPHEN (5/325) TAB PO PRN ×4 (04:12→22:54)
[2019-03-11 07:22] VITALS: BP 132/63; PULSE 58; RESP 18
[2019-03-11] MEDS: INSULIN ASPART [NOVOLOG] 3 ML PEN SC SCH ×4 (08:00→21:00)
[2019-03-11] MEDS: CITALOPRAM 20 MG TAB PO SCH (08:32)
[2019-03-11] MEDS: GUAIFENESIN LA 600 MG TABSR PO SCH (08:33)
[2019-03-11] MEDS: BACLOFEN 10 MG TAB PO SCH ×3 (08:33→21:19)
[2019-03-11] MEDS: LORATADINE 10 MG TAB PO SCH (08:33)
[2019-03-11] MEDS: ENOXAPARIN 40 MG/0.4 ML SYG SC SCH (08:38)
[2019-03-11] MEDS: POLYETHYLENE GLYCOL 17 GM PACKET PO SCH ×2 (08:38→21:18)
[2019-03-11] MEDS: DOCUSATE SODIUM 100 MG CAP PO SCH ×2 (08:38→21:18)
[2019-03-11] MEDS: BALSAM PERU/CASTOR OIL 60 GM TUBE TOP SCH ×2 (08:39→21:57)
[2019-03-11] MEDS: DAKINS 0.0125%(1/40) 473 ML SOLUTION TP SCH (08:39)
[2019-03-11] MEDS: COLLAGENASE 5 GM (UD JAR) TOP SCH (08:40)
[2019-03-11 14:05] VITALS: BP 126/71; PULSE 61; RESP 18
--- NOTE | 2019-03-11 14:40 | CONS ---
Assessment/Plan Assessment/Plan Hospital Course (Demo Recall) #Anemia -patient's initial Hg of 2.6 was likely secondary to GIB and perforated viscous. Stool ob at that time was negative. -anemia panel is consistent with iron deficiency -s/p Ferrlecit 125 mg IV x 5 days completed 01/30. Hg stable > 9. last checked on 03/07/19 #Sepsis -2/2 UTI and wound infection -now off antibiotics #Perforated viscous -continue conservative management per surgery -pt is now stable #JACKIE -renal following -Creatine came down to 1.16 Consultation Date/Type/Reason Admit Date/Time Jan 16, 2019 at 23:33 Initial Consult Date 01/25/19 Type of Consult hematology Reason for Consultation anemia Requesting Provider: ALLISON WOLFF Date/Time of Note DATE: 03/11/19 TIME: 14:38 24 HR Interval Summary Free Text/Dictation no acute overnight events Exam/Review of Systems Exam Vitals Vital Signs Date Temp Pulse Resp B/P (MAP) Pulse Ox O2 O2 Flow FiO2 Time Delivery Rate 03/11/19 98.1 61 18 126/71 98 Room Air 14:05 (89) Intake and Output 03/10/19 03/10/19 03/11/19 1515:00 23:00 07:00 IntakeIntake Total 1460 ml 440 ml BalanceBalance 1460 ml 440 ml Constitutional: alert, oriented Psych: no complaints Head: normocephalic Eyes: nl conjunctiva ENMT: nl external ears & nose Neck: supple Cardiovascular: regular rate and rhythm Gastrointestinal: soft Musculoskeletal: nl extremities to inspection Results Result Diagram: 03/07/19 0459 03/07/19 0459 Results 24hrs Laboratory Tests Test 03/10/19 17:17 03/10/19 20:38 03/11/19 08:16 03/11/19 12:22 Bedside Glucose 117 117 136 139 Medications Medication Current Medications Ipratropium [place] (Atrovent Hfa) 4 puff Q2H RESP THERAPY PRN INH SHORTNESS OF BREATH; Start 01/17/19 at 00:00 Acetaminophen (Tylenol Liquid) 650 mg Q6H PRN PO PAIN LEVEL 1-3 OR FEVER; Start 01/17/19 at 00:00 Miscellaneous Information 1 ea NOTE XX ; Start 01/17/19 at 11:00 Glucose (Glutose) 15 gm Q15M PRN PO DECREASED GLUCOSE; Start 01/17/19 at 11:00 Glucose (Glutose) 22.5 gm Q15M PRN PO DECREASED GLUCOSE; Start 01/17/19 at 11:00 Dextrose (D50w Syringe) 25 ml Q15M PRN IV DECREASED GLUCOSE; Start 01/17/19 at 11:00 Dextrose (D50w Syringe) 50 ml Q15M PRN IV DECREASED GLUCOSE; Start 01/17/19 at 11:00 Glucagon (Glucagen) 1 mg Q15M PRN IM DECREASED GLUCOSE; Start 01/17/19 at 11:00 Glucose (Glutose) 15 gm Q15M PRN BUCCAL DECREASED GLUCOSE; Start 01/17/19 at 11:00 Collagenase (Santyl) 1 applic DAILY TOP Last administered on 03/11/19at 08:40; Admin Dose 1 APPLIC; Start 01/17/19 at 17:00 Carvedilol (Coreg) 3.125 mg BID PO Last administered on 03/11/19 08:36; Admin Dose 3.125 MG; Start 01/21/19 at 09:00 Sodium Hypochlorite (Dakins Diluted ()) 1 applic DAILY TP Last administered on 03/11/19at 08:39; Admin Dose 1 APPLIC; Start 01/28/19 at 09:40 Citalopram Hydrobromide (Celexa) 10 mg DAILY PO Last administered on 03/11/19 08:32; Admin Dose 10 MG; Start 01/30/19 at 09:00 Insulin Aspart (Novolog Insulin Pen) NOVOLOG *MILD* ALGORITHM WITH MEALS BEDTIME SC Last administered on 03/10/19 12:19; Admin Dose 1 UNIT; Start 01/30/19 at 08:00 Baclofen (Lioresal) 5 mg TID PO Last administered on 03/11/19 12:31; Admin Dose 5 MG; Start 02/01/19 at 21:00 Lorazepam (Ativan) 0.5 mg Q8H PRN PO ANXIETY Last administered on 03/10/19 17:18; Admin Dose 0.5 MG; Start 02/02/19 at 12:00 Oxycodone/ Acetaminophen (Percocet (5/ 325)) 1 tab Q6H PRN PO MODERATE PAIN LEVEL 4-6 Last administered on 03/11/19at 10:13; Admin Dose 1 TAB; Start 02/07/19 at 14:30 Diazepam (Valium) 2 mg TID PRN PO anxiety Last administered on 03/10/19at 06:56; Admin Dose 2 MG; Start 02/11/19 at 13:00 Clonidine (Catapres) 0.1 mg Q8H PRN PO SBP>170; Start 02/19/19 at 11:30 Polyethylene Glycol (Miralax) 17 gm DAILY PRN PO CONSTIPATION Last administered on 02/25/19at 17:10; Admin Dose 17 GM; Start 02/25/19 at 13:00 Polyethylene Glycol (Miralax) 17 gm BID PO Last administered on 03/07/19at 08:47; Admin Dose 17 GM; Start 02/26/19 at 14:30 Docusate Sodium (Colace) 100 mg BID PO Last administered on 03/10/19at 20:40; Admin Dose 100 MG; Start 02/26/19 at 14:30 Miscellaneous Information (*Order Clarification Bulletin) MEDICATION REQUIRES CLARIFICATION:PLE... Q8H XX ; Start 03/01/19 at 09:30 Loratadine (Claritin) 10 mg DAILY PO Last administered on 03/11/19at 08:33; Admin Dose 10 MG; Start 03/03/19 at 14:30 Guaifenesin (Mucinex) 600 mg BID PO Last administered on 03/11/19at 08:33; Admin Dose 600 MG; Start 03/03/19 at 15:30 Enoxaparin Sodium (Lovenox) 40 mg DAILY SC ; Start 03/07/19 at 09:00 Multivitamins Therapeutic (Theragran) 1 tab DAILY PO ; Start 03/11/19 at 15:00 Ascorbic Acid (Vitamin C) 500 mg BID PO ; Start 03/11/19 at 21:00 RAJI DIXON M.D. March 11, 2019 14:39
[2019-03-11] MEDS: MULTIVITAMINS THERAPEUTIC TAB PO SCH (15:23)
--- NOTE | 2019-03-11 16:14 | PN ---
Date/Time of Note Date/Time of Note DATE: 03/11/19 TIME: 16:14 Assessment/Plan VTE Prophylaxis Risk score (from Nsg)>0 risk: 3 SCD applied (from Nsg): Yes Pharmacological prophylaxis: heparin Lines/Catheters IV Catheter Type (from Nrsg): Peripheral IV Urinary Cath still in place: No Assessment/Plan Hospital Course EXAM: Well appearing, in NAD, Aox3 RRR CTAB Soft nt nd Contracted LEs L hip pressure ulcer 59 yo female with chronic debility and leg weakness who presented with sepsis, severe anemia, and perforated viscus B/l LE weakness 2.2 severe knee OA bilaterally: - PT/OT Perforated viscus: - resolved Hip OM: - s/p Abx course per ID, resolved - Valium TID PRN Prophylaxis: SCDs, Protonix Discharge planning; To SNF when accepted. Antibiotics are completed. Alternatively could return to previous living situation if family is willing to accept Result Diagram: 03/07/19 0459 03/07/19 0459 Results 24hrs Laboratory Tests Test 03/10/19 17:17 03/10/19 20:38 03/11/19 08:16 03/11/19 12:22 Bedside Glucose 117 117 136 139 Subjective 24 Hr Interval Summary Free Text/Dictation No change to clinical status Awaiting placement Exam/Review of Systems Exam Vitals Vital Signs Date Temp Pulse Resp B/P (MAP) Pulse Ox O2 O2 Flow FiO2 Time Delivery Rate 03/11/19 98.1 61 18 126/71 98 Room Air 14:05 (89) Intake and Output 03/10/19 03/10/19 03/11/19 1515:00 23:00 07:00 IntakeIntake Total 1460 ml 440 ml BalanceBalance 1460 ml 440 ml Results Results 24hrs Laboratory Tests Test 03/10/19 17:17 03/10/19 20:38 03/11/19 08:16 03/11/19 12:22 Bedside Glucose 117 117 136 139 Medications Medication Current Medications Ipratropium [place] (Atrovent Hfa) 4 puff Q2H RESP THERAPY PRN INH SHORTNESS OF BREATH; Start 01/17/19 at 00:00 Acetaminophen (Tylenol Liquid) 650 mg Q6H PRN PO PAIN LEVEL 1-3 OR FEVER; Start 01/17/19 at 00:00 Miscellaneous Information 1 ea NOTE XX ; Start 01/17/19 at 11:00 Glucose (Glutose) 15 gm Q15M PRN PO DECREASED GLUCOSE; Start 01/17/19 at 11:00 Glucose (Glutose) 22.5 gm Q15M PRN PO DECREASED GLUCOSE; Start 01/17/19 at 11:00 Dextrose (D50w Syringe) 25 ml Q15M PRN IV DECREASED GLUCOSE; Start 01/17/19 at 11:00 Dextrose (D50w Syringe) 50 ml Q15M PRN IV DECREASED GLUCOSE; Start 01/17/19 at 11:00 Glucagon (Glucagen) 1 mg Q15M PRN IM DECREASED GLUCOSE; Start 01/17/19 at 11:00 Glucose (Glutose) 15 gm Q15M PRN BUCCAL DECREASED GLUCOSE; Start 01/17/19 at 11:00 Collagenase (Santyl) 1 applic DAILY TOP Last administered on 03/11/19at 08:40; Admin Dose 1 APPLIC; Start 01/17/19 at 17:00 Carvedilol (Coreg) 3.125 mg BID PO Last administered on 03/11/19at 08:36; Admin Dose 3.125 MG; Start 01/21/19 at 09:00 Sodium Hypochlorite (Dakins Diluted ()) 1 applic DAILY TP Last administered on 03/11/19at 08:39; Admin Dose 1 APPLIC; Start 01/28/19 at 09:40 Citalopram Hydrobromide (Celexa) 10 mg DAILY PO Last administered on 03/11/19at 08:32; Admin Dose 10 MG; Start 01/30/19 at 09:00 Insulin Aspart (Novolog Insulin Pen) NOVOLOG *MILD* ALGORITHM WITH MEALS BEDTIME SC Last administered on 03/10/19at 12:19; Admin Dose 1 UNIT; Start 01/30/19 at 08:00 Baclofen (Lioresal) 5 mg TID PO Last administered on 03/11/19at 12:31; Admin Dose 5 MG; Start 02/01/19 at 21:00 Lorazepam (Ativan) 0.5 mg Q8H PRN PO ANXIETY Last administered on 03/10/19 17:18; Admin Dose 0.5 MG; Start 02/02/19 at 12:00 Oxycodone/ Acetaminophen (Percocet (5/ 325)) 1 tab Q6H PRN PO MODERATE PAIN LEVEL 4-6 Last administered on 03/11/19 10:13; Admin Dose 1 TAB; Start 02/07/19 at 14:30 Diazepam (Valium) 2 mg TID PRN PO anxiety Last administered on 03/10/19 06:56; Admin Dose 2 MG; Start 02/11/19 at 13:00 Clonidine (Catapres) 0.1 mg Q8H PRN PO SBP>170; Start 02/19/19 at 11:30 Polyethylene Glycol (Miralax) 17 gm DAILY PRN PO CONSTIPATION Last administered on 02/25/19 17:10; Admin Dose 17 GM; Start 02/25/19 at 13:00 Polyethylene Glycol (Miralax) 17 gm BID PO Last administered on 03/07/19 08:47; Admin Dose 17 GM; Start 02/26/19 at 14:30 Docusate Sodium (Colace) 100 mg BID PO Last administered on 03/10/19at 20:40; Admin Dose 100 MG; Start 02/26/19 at 14:30 Miscellaneous Information (*Order Clarification Bulletin) MEDICATION REQUIRES CLARIFICATION:PLE... Q8H XX ; Start 03/01/19 at 09:30 Loratadine (Claritin) 10 mg DAILY PO Last administered on 03/11/19 08:33; Admin Dose 10 MG; Start 03/03/19 at 14:30 Guaifenesin (Mucinex) 600 mg BID PO Last administered on 03/11/19at 08:33; Admin Dose 600 MG; Start 03/03/19 at 15:30 Enoxaparin Sodium (Lovenox) 40 mg DAILY SC ; Start 03/07/19 at 09:00 Multivitamins Therapeutic (Theragran) 1 tab DAILY PO Last administered on 03/11/19at 15:23; Admin Dose 1 TAB; Start 03/11/19 at 15:00 Ascorbic Acid (Vitamin C) 500 mg BID PO ; Start 03/11/19 at 21:00 SONAL ALBERT MD March 11, 2019 16:14
--- NOTE | 2019-03-11 16:51 | PN ---
Date/Time of Note Date/Time of Note DATE: 03/11/19 TIME: 16:50 Assessment/Plan Lines/Catheters IV Catheter Type (from [facility]): Peripheral IV Valadez in Place (from [facility]): No Assessment/Plan Chief Complaint/Hosp Course 1. Multiple wounds: + Wound cultures; wounds healing -Continue local care> cont same tx as outpatient: Placement pending -frequent turning and off-loading -low air loss mattress -vitamin c -short term zinc -optimize nutrition -Debridement as needed 2. Pneumoperitoneum with likely perforation of the bladder. Previously family did not consent to proceeding to surgery and she significantly improved with conservative treatments and extubated; CT cystogram noted without contrast leak. -Diet as tolerated -DC okay from surgical standpoint. Will need urology follow-up 3. Hypochromic anemia: Status post PRBC transfusion, H&H stable -Monitor and transfuse as needed 4. UTI: -abx per sensitivity -frequent bladder emptying/cath care 5. Transaminitis: Likely 2/2 #5 -Trend 6. NSTEMI: -Cardiac optimization>defer to cards 7. Possible left knee effusion -Per medical team; consider Ortho consult 8. Anxiety: Currently on Ativan -Psych optimization Thank you, Subjective 24 Hr Interval Summary Pending placement. Feels well. No fevers, chills, sob, congested cough, cp, palpitations, keita, dizziness, nausea, vomiting, diarrhea, dysuria. Exam/Review of Systems Vital Signs Vitals Vital Signs Date Temp Pulse Resp B/P (MAP) Pulse Ox O2 O2 Flow FiO2 Time Delivery Rate 03/11/19 98.1 61 18 126/71 98 Room Air 14:05 (89) Intake and Output 03/10/19 03/10/19 03/11/19 1414:59 22:59 06:59 IntakeIntake Total 1460 ml 440 ml BalanceBalance 1460 ml 440 ml Exam Free Text/Dictation Constitutional: NAD, well developed; somnolent Psych: nl mood Head: normocephalic, atraumatic Eyes: nl conjunctiva, EOMI, nl lids, nl sclera ENMT: nl external ears & nose, no nl lips & teeth (poor dentition), mucosa pink and moist Neck: supple, non-tender; No jvd Respiratory: normal air movement; No congested cough, No labored breathing Cardiovascular: regular rate and rhythm, nl pulses; No edema Gastrointestinal: soft, non-distended, min tender, no rebound Genitourinary - Female: nl external genitalia Musculoskeletal: nl extremities to inspection, Extremities: normal pulses Neurological: nl speech, no normal strength (generalized weakness) Skin: No rash or lesions, left hip wound: packed, scant drainage, granulating, no odor; sacral wound: Packed, scant drainage Lymph: nl lymph nodes Results Result Diagram: 03/07/19 0459 03/07/19 0459 ALEK HANDLEY MD March 11, 2019 16:51
[2019-03-11] MEDS: DIAZEPAM 2 MG TAB PO PRN (18:40)
[2019-03-11 19:50] VITALS: BP 114/85; PULSE 72; RESP 18
[2019-03-11] MEDS: ASCORBIC ACID 500 MG TAB PO SCH (21:18)
[2019-03-12 01:22] VITALS: BP 118/76; PULSE 69; RESP 18
[2019-03-12] MEDS: OXYCODONE/ACETAMINOPHEN (5/325) TAB PO PRN ×2 (04:53→12:06)
[2019-03-12] MEDS: LORAZEPAM 0.5 MG TAB PO PRN ×2 (06:10→20:16)
[2019-03-12] MEDS: INSULIN ASPART [NOVOLOG] 3 ML PEN SC SCH ×4 (08:00→20:15)
[2019-03-12 08:29] VITALS: BP 134/71; PULSE 59; RESP 18
[2019-03-12] MEDS: POLYETHYLENE GLYCOL 17 GM PACKET PO SCH ×2 (08:31→20:16)
[2019-03-12] MEDS: COLLAGENASE 5 GM (UD JAR) TOP SCH (08:31)
[2019-03-12] MEDS: BACLOFEN 10 MG TAB PO SCH ×3 (08:31→20:17)
[2019-03-12] MEDS: CITALOPRAM 20 MG TAB PO SCH (08:31)
[2019-03-12] MEDS: ASCORBIC ACID 500 MG TAB PO SCH ×2 (08:32→20:17)
[2019-03-12] MEDS: MULTIVITAMINS THERAPEUTIC TAB PO SCH (08:32)
[2019-03-12] MEDS: DOCUSATE SODIUM 100 MG CAP PO SCH ×2 (08:33→20:17)
[2019-03-12] MEDS: ENOXAPARIN 40 MG/0.4 ML SYG SC SCH (08:38)
[2019-03-12] MEDS: DAKINS 0.0125%(1/40) 473 ML SOLUTION TP SCH (08:39)
[2019-03-12] MEDS: BALSAM PERU/CASTOR OIL 60 GM TUBE TOP SCH ×2 (08:39→20:19)
--- NOTE | 2019-03-12 12:34 | CONS ---
Assessment/Plan Assessment/Plan Assessment/Plan (Daily) #Anemia- Hgb 10.4 -patient's initial Hg of 2.6 was likely secondary to GIB and perforated viscous. Stool ob at that time was negative. -anemia panel is consistent with iron deficiency -s/p Ferrlecit 125 mg IV x 5 days completed 01/30. Hg stable > 9. last checked on 03/07/19- 10.4 #Sepsis -2/2 UTI and wound infection -now off antibiotics #Perforated viscous -continue conservative management per surgery -pt is now stable #JACKIE -renal following -Creatine came down to 1.16 Patient seen in collaboration with Dr Laura/ staff. Consultation Date/Type/Reason Admit Date/Time Jan 16, 2019 at 23:33 Initial Consult Date 01/25/19 Type of Consult Hematology/oncology Reason for Consultation ANEMIA Requesting Provider: ALLISON WOLFF Date/Time of Note DATE: 03/12/19 TIME: 12:32 24 HR Interval Summary Free Text/Dictation Having lunch - c/o general weakness -denies any shortness of breath;chest pain - no new events reported last night dw staff Constitutional: improved Detailed Summary Eyes: no complaints ENT: no complaints Respiratory: no complaints Cardiovascular: no complaints Gastrointestinal: no complaints Genitourinary: no complaints Musculoskeletal: other (general weakness) Neurologic: no complaints Endocrine: no complaints Lymphatic: no complaints Psychological: nl mood/affect Exam/Review of Systems Exam Vitals Vital Signs Date Temp Pulse Resp B/P (MAP) Pulse Ox O2 O2 Flow FiO2 Time Delivery Rate 03/12/19 98.0 59 18 134/71 95 08:29 (92) 03/11/19 Room Air 14:05 Constitutional: alert, oriented, well developed Psych: nl mood/affect Head: atraumatic Eyes: nl lids ENMT: nl external ears & nose Neck: non-tender Respiratory: clear to auscultation Cardiovascular: nl pulses, other (s1s2) Gastrointestinal: soft, non-tender Musculoskeletal: muscle weakness Extremities: normal pulses Neurological: nl speech, other (alert/responsive) Skin: nl turgor Lymph: nontender Results Results 24hrs Laboratory Tests Test 03/11/19 17:11 03/11/19 21:17 03/12/19 08:26 03/12/19 12:04 Bedside Glucose 115 119 106 173 Medications Medication Current Medications Ipratropium [place] (Atrovent Hfa) 4 puff Q2H RESP THERAPY PRN INH SHORTNESS OF BREATH; Start 01/17/19 at 00:00 Acetaminophen (Tylenol Liquid) 650 mg Q6H PRN PO PAIN LEVEL 1-3 OR FEVER; Start 01/17/19 at 00:00 Miscellaneous Information 1 ea NOTE XX ; Start 01/17/19 at 11:00 Glucose (Glutose) 15 gm Q15M PRN PO DECREASED GLUCOSE; Start 01/17/19 at 11:00 Glucose (Glutose) 22.5 gm Q15M PRN PO DECREASED GLUCOSE; Start 01/17/19 at 11:00 Dextrose (D50w Syringe) 25 ml Q15M PRN IV DECREASED GLUCOSE; Start 01/17/19 at 11:00 Dextrose (D50w Syringe) 50 ml Q15M PRN IV DECREASED GLUCOSE; Start 01/17/19 at 11:00 Glucagon (Glucagen) 1 mg Q15M PRN IM DECREASED GLUCOSE; Start 01/17/19 at 11:00 Glucose (Glutose) 15 gm Q15M PRN BUCCAL DECREASED GLUCOSE; Start 01/17/19 at 11:00 Collagenase (Santyl) 1 applic DAILY TOP Last administered on 03/12/19 08:31; Admin Dose 1 APPLIC; Start 01/17/19 at 17:00 Carvedilol (Coreg) 3.125 mg BID PO Last administered on 03/12/19 08:33; Admin Dose 3.125 MG; Start 01/21/19 at 09:00 Sodium Hypochlorite (Dakins Diluted ()) 1 applic DAILY TP Last administered on 03/12/19at 08:39; Admin Dose 1 APPLIC; Start 01/28/19 at 09:40 Citalopram Hydrobromide (Celexa) 10 mg DAILY PO Last administered on 03/12/19 08:31; Admin Dose 10 MG; Start 01/30/19 at 09:00 Insulin Aspart (Novolog Insulin Pen) NOVOLOG *MILD* ALGORITHM WITH MEALS BEDTIME SC Last administered on 03/12/19 12:11; Admin Dose 1 UNIT; Start 01/30/19 at 08:00 Baclofen (Lioresal) 5 mg TID PO Last administered on 03/12/19at 12:05; Admin Dose 5 MG; Start 02/01/19 at 21:00 Lorazepam (Ativan) 0.5 mg Q8H PRN PO ANXIETY Last administered on 03/12/19 06:10; Admin Dose 0.5 MG; Start 02/02/19 at 12:00 Oxycodone/ Acetaminophen (Percocet (5/ 325)) 1 tab Q6H PRN PO MODERATE PAIN LEVEL 4-6 Last administered on 03/12/19 12:06; Admin Dose 1 TAB; Start 02/07/19 at 14:30 Diazepam (Valium) 2 mg TID PRN PO anxiety Last administered on 03/11/19 18:40; Admin Dose 2 MG; Start 02/11/19 at 13:00 Clonidine (Catapres) 0.1 mg Q8H PRN PO SBP>170; Start 02/19/19 at 11:30 Polyethylene Glycol (Miralax) 17 gm DAILY PRN PO CONSTIPATION Last administered on 02/25/19 17:10; Admin Dose 17 GM; Start 02/25/19 at 13:00 Polyethylene Glycol (Miralax) 17 gm BID PO Last administered on 03/12/19 08:31; Admin Dose 17 GM; Start 02/26/19 at 14:30 Docusate Sodium (Colace) 100 mg BID PO Last administered on 03/12/19 08:33; Admin Dose 100 MG; Start 02/26/19 at 14:30 Miscellaneous Information (*Order Clarification Bulletin) MEDICATION REQUIRES CLARIFICATION:PLE... Q8H XX ; Start 03/01/19 at 09:30 Enoxaparin Sodium (Lovenox) 40 mg DAILY SC ; Start 03/07/19 at 09:00 Multivitamins Therapeutic (Theragran) 1 tab DAILY PO Last administered on 03/12/19 08:32; Admin Dose 1 TAB; Start 03/11/19 at 15:00 Ascorbic Acid (Vitamin C) 500 mg BID PO Last administered on 03/12/19 08:32; Admin Dose 500 MG; Start 03/11/19 at 21:00 SHELBIE MARTINES March 12, 2019 12:34
[2019-03-12 15:07] VITALS: BP 122/66; PULSE 65; RESP 17
--- NOTE | 2019-03-12 15:10 | PN ---
Date/Time of Note Date/Time of Note DATE: 03/12/19 TIME: 15:10 Assessment/Plan VTE Prophylaxis Risk score (from Nsg)>0 risk: 5 SCD applied (from [facility]): Yes Pharmacological prophylaxis: heparin Lines/Catheters IV Catheter Type (from [facility]): Peripheral IV Urinary Cath still in place: No Assessment/Plan Hospital Course EXAM: Well appearing, in NAD, Aox3 RRR CTAB Soft nt nd Contracted LEs L hip pressure ulcer 59 yo female with chronic debility and leg weakness who presented with sepsis, severe anemia, and perforated viscus B/l LE weakness 2.2 severe knee OA bilaterally: - PT/OT Perforated viscus: - resolved Hip OM: - s/p Abx course per ID, resolved - Valium TID PRN Prophylaxis: SCDs, Protonix Discharge planning; To SNF when accepted. Antibiotics are completed. Alternatively could return to previous living situation if family is willing to accept Results 24hrs Laboratory Tests Test 03/11/19 17:11 03/11/19 21:17 03/12/19 08:26 03/12/19 12:04 Bedside Glucose 115 119 106 173 Subjective 24 Hr Interval Summary Free Text/Dictation No significant changes Awaiting placement Exam/Review of Systems Exam Vitals Vital Signs Date Temp Pulse Resp B/P (MAP) Pulse Ox O2 O2 Flow FiO2 Time Delivery Rate 03/12/19 98.6 65 17 122/66 97 15:07 (84) 03/11/19 Room Air 14:05 Results Results 24hrs Laboratory Tests Test 03/11/19 17:11 03/11/19 21:17 03/12/19 08:26 03/12/19 12:04 Bedside Glucose 115 119 106 173 Medications Medication Current Medications Ipratropium [place] (Atrovent Hfa) 4 puff Q2H RESP THERAPY PRN INH SHORTNESS OF BREATH; Start 01/17/19 at 00:00 Acetaminophen (Tylenol Liquid) 650 mg Q6H PRN PO PAIN LEVEL 1-3 OR FEVER; Start 01/17/19 at 00:00 Miscellaneous Information 1 ea NOTE XX ; Start 01/17/19 at 11:00 Glucose (Glutose) 15 gm Q15M PRN PO DECREASED GLUCOSE; Start 01/17/19 at 11:00 Glucose (Glutose) 22.5 gm Q15M PRN PO DECREASED GLUCOSE; Start 01/17/19 at 11:00 Dextrose (D50w Syringe) 25 ml Q15M PRN IV DECREASED GLUCOSE; Start 01/17/19 at 11:00 Dextrose (D50w Syringe) 50 ml Q15M PRN IV DECREASED GLUCOSE; Start 01/17/19 at 11:00 Glucagon (Glucagen) 1 mg Q15M PRN IM DECREASED GLUCOSE; Start 01/17/19 at 11:00 Glucose (Glutose) 15 gm Q15M PRN BUCCAL DECREASED GLUCOSE; Start 01/17/19 at 11:00 Collagenase (Santyl) 1 applic DAILY TOP Last administered on 03/12/19 08:31; Admin Dose 1 APPLIC; Start 01/17/19 at 17:00 Carvedilol (Coreg) 3.125 mg BID PO Last administered on 03/12/19 08:33; Admin Dose 3.125 MG; Start 01/21/19 at 09:00 Sodium Hypochlorite (Dakins Diluted ()) 1 applic DAILY TP Last administered on 03/12/19 08:39; Admin Dose 1 APPLIC; Start 01/28/19 at 09:40 Citalopram Hydrobromide (Celexa) 10 mg DAILY PO Last administered on 03/12/19 08:31; Admin Dose 10 MG; Start 01/30/19 at 09:00 Insulin Aspart (Novolog Insulin Pen) NOVOLOG *MILD* ALGORITHM WITH MEALS BEDTIME SC Last administered on 03/12/19 12:11; Admin Dose 1 UNIT; Start 01/30/19 at 08:00 Baclofen (Lioresal) 5 mg TID PO Last administered on 03/12/19 12:05; Admin Dose 5 MG; Start 02/01/19 at 21:00 Lorazepam (Ativan) 0.5 mg Q8H PRN PO ANXIETY Last administered on 03/12/19 06:10; Admin Dose 0.5 MG; Start 02/02/19 at 12:00 Oxycodone/ Acetaminophen (Percocet (5/ 325)) 1 tab Q6H PRN PO MODERATE PAIN LEVEL 4-6 Last administered on 03/12/19 12:06; Admin Dose 1 TAB; Start 02/07/19 at 14:30 Diazepam (Valium) 2 mg TID PRN PO anxiety Last administered on 03/11/19 18:40; Admin Dose 2 MG; Start 02/11/19 at 13:00 Clonidine (Catapres) 0.1 mg Q8H PRN PO SBP>170; Start 02/19/19 at 11:30 Polyethylene Glycol (Miralax) 17 gm DAILY PRN PO CONSTIPATION Last administered on 02/25/19 17:10; Admin Dose 17 GM; Start 02/25/19 at 13:00 Polyethylene Glycol (Miralax) 17 gm BID PO Last administered on 03/12/19at 08:31; Admin Dose 17 GM; Start 02/26/19 at 14:30 Docusate Sodium (Colace) 100 mg BID PO Last administered on 03/12/19 08:33; Admin Dose 100 MG; Start 02/26/19 at 14:30 Miscellaneous Information (*Order Clarification Bulletin) MEDICATION REQUIRES CLARIFICATION:PLE... Q8H XX ; Start 03/01/19 at 09:30 Enoxaparin Sodium (Lovenox) 40 mg DAILY SC ; Start 03/07/19 at 09:00 Multivitamins Therapeutic (Theragran) 1 tab DAILY PO Last administered on 03/12/19 08:32; Admin Dose 1 TAB; Start 03/11/19 at 15:00 Ascorbic Acid (Vitamin C) 500 mg BID PO Last administered on 03/12/19 08:32; Admin Dose 500 MG; Start 03/11/19 at 21:00 SONAL ALBERT MD March 12, 2019 15:10
--- NOTE | 2019-03-12 16:24 | PN ---
Date/Time of Note Date/Time of Note DATE: 03/12/19 TIME: 16:22 Assessment/Plan Lines/Catheters IV Catheter Type (from [facility]): Peripheral IV Valadez in Place (from [facility]): No Assessment/Plan Chief Complaint/Hosp Course 1. Multiple wounds: + Wound cultures; wounds healing -Continue local care> cont same tx as outpatient: Placement pending -frequent turning and off-loading -low air loss mattress -vitamin c -short term zinc -optimize nutrition -Debridement as needed 2. Pneumoperitoneum with likely perforation of the bladder. Resolved -Diet as tolerated -DC okay from surgical standpoint. Will need urology follow-up 3. Hypochromic anemia: Status post PRBC transfusion, H&H stable -Monitor and transfuse as needed 4. UTI: -abx per sensitivity -frequent bladder emptying/cath care 5. Transaminitis: Likely 2/2 #5 -Trend 6. NSTEMI: -Cardiac optimization>defer to cards 7. Possible left knee effusion -Per medical team; consider Ortho consult 8. Anxiety: -Anxiolytics as needed -Psych optimization Thank you. Patient seen and examined in collaboration with Dr. Osei Sanford. Subjective 24 Hr Interval Summary No acute events. No fevers, chills, sob, congested cough, cp, palpitations, keita, dizziness, nausea, vomiting, diarrhea, dysuria, wound drainage or odor. Exam/Review of Systems Vital Signs Vitals Vital Signs Date Temp Pulse Resp B/P (MAP) Pulse Ox O2 O2 Flow FiO2 Time Delivery Rate 03/12/19 98.6 65 17 122/66 97 15:07 (84) 03/11/19 Room Air 14:05 Exam Free Text/Dictation Constitutional: NAD, well developed; somnolent Psych: nl mood Head: normocephalic, atraumatic Eyes: nl conjunctiva, EOMI, nl lids, nl sclera ENMT: nl external ears & nose, no nl lips & teeth (poor dentition), mucosa pink and moist Neck: supple, non-tender; No jvd Respiratory: normal air movement; No congested cough, No labored breathing Cardiovascular: regular rate and rhythm, nl pulses; No edema Gastrointestinal: soft, non-distended, min tender, no rebound Genitourinary - Female: nl external genitalia Musculoskeletal: nl extremities to inspection, Extremities: normal pulses Neurological: nl speech, no normal strength (generalized weakness) Skin: No rash or lesions, left hip wound: packed, scant drainage, granulating, no odor; sacral wound: Packed, scant drainage Lymph: nl lymph nodes MASSIMO WATKINS NP March 12, 2019 16:24
[2019-03-12] MEDS: DIAZEPAM 2 MG TAB PO PRN (16:39)
[2019-03-12 19:40] VITALS: BP 124/59; PULSE 78; RESP 18
[2019-03-13] MEDS ORDERED: OXYCODONE/ACETAMINOPHEN (5/325) TAB PO PRN
[2019-03-13 01:45] VITALS: BP 117/64; PULSE 65; RESP 18
[2019-03-13] MEDS: INSULIN ASPART [NOVOLOG] 3 ML PEN SC SCH ×4 (08:00→20:20)
[2019-03-13 08:46] VITALS: BP 146/70; PULSE 61; RESP 18
[2019-03-13] MEDS: DOCUSATE SODIUM 100 MG CAP PO SCH ×2 (08:52→20:17)
[2019-03-13] MEDS: CITALOPRAM 20 MG TAB PO SCH (08:52)
[2019-03-13] MEDS: ASCORBIC ACID 500 MG TAB PO SCH ×2 (08:53→20:18)
[2019-03-13] MEDS: DAKINS 0.0125%(1/40) 473 ML SOLUTION TP SCH (08:54)
[2019-03-13] MEDS: MULTIVITAMINS THERAPEUTIC TAB PO SCH (08:54)
[2019-03-13] MEDS: BALSAM PERU/CASTOR OIL 60 GM TUBE TOP SCH ×2 (08:54→20:21)
[2019-03-13] MEDS: BACLOFEN 10 MG TAB PO SCH ×3 (08:54→20:18)
[2019-03-13] MEDS: COLLAGENASE 5 GM (UD JAR) TOP SCH (08:55)
[2019-03-13] MEDS: DIAZEPAM 2 MG TAB PO PRN ×2 (08:57→20:19)
[2019-03-13] MEDS: POLYETHYLENE GLYCOL 17 GM PACKET PO SCH ×2 (10:37→20:17)
[2019-03-13] MEDS: ENOXAPARIN 40 MG/0.4 ML SYG SC SCH (10:38)
--- NOTE | 2019-03-13 12:12 | CONS ---
Assessment/Plan Assessment/Plan Assessment/Plan (Daily) #Anemia- Hgb 10.4 -patient's initial Hg of 2.6 was likely secondary to GIB and perforated viscous. Stool ob at that time was negative. -anemia panel is consistent with iron deficiency -s/p Ferrlecit 125 mg IV x 5 days completed 01/30. Hg stable > 9. last checked on 03/07/19- 10.4 #Sepsis -2/2 UTI and wound infection -now off antibiotics #Perforated viscous -continue conservative management per surgery -pt is now stable #JACKIE -renal following -Creatine came down to 1.16 Patient seen in collaboration with Dr Laura/ staff. Consultation Date/Type/Reason Admit Date/Time Jan 16, 2019 at 23:33 Initial Consult Date 01/25/19 Type of Consult Hematology/oncology Reason for Consultation ANEMIA Requesting Provider: ALLISON WOLFF Date/Time of Note DATE: 03/13/19 TIME: 12:09 24 HR Interval Summary Free Text/Dictation Patient refused Blood test today no new events reported overnight Detailed Summary Eyes: no complaints ENT: no complaints Exam/Review of Systems Exam Vitals Vital Signs Date Temp Pulse Resp B/P (MAP) Pulse Ox O2 O2 Flow FiO2 Time Delivery Rate 03/13/19 97.7 61 18 146/70 100 08:46 (95) 03/11/19 Room Air 14:05 Intake and Output 03/12/19 03/12/19 03/13/19 1414:59 22:59 06:59 IntakeIntake Total 1250 ml BalanceBalance 1250 ml Constitutional: alert, well developed Psych: nl mood/affect Head: normocephalic Eyes: nl lids, nl sclera ENMT: nl external ears & nose Neck: non-tender Respiratory: clear to auscultation Cardiovascular: nl pulses, other (s1s2) Gastrointestinal: soft, non-tender Musculoskeletal: muscle weakness Extremities: normal pulses Neurological: nl speech, other (alert/responsive) Skin: nl turgor Lymph: nontender Results Results 24hrs Laboratory Tests Test 03/12/19 17:01 03/12/19 20:14 03/13/19 08:52 Bedside Glucose 133 164 116 Medications Medication Current Medications Ipratropium [place] (Atrovent Hfa) 4 puff Q2H RESP THERAPY PRN INH SHORTNESS OF BREATH; Start 01/17/19 at 00:00 Acetaminophen (Tylenol Liquid) 650 mg Q6H PRN PO PAIN LEVEL 1-3 OR FEVER; Start 01/17/19 at 00:00 Miscellaneous Information 1 ea NOTE XX ; Start 01/17/19 at 11:00 Glucose (Glutose) 15 gm Q15M PRN PO DECREASED GLUCOSE; Start 01/17/19 at 11:00 Glucose (Glutose) 22.5 gm Q15M PRN PO DECREASED GLUCOSE; Start 01/17/19 at 11:00 Dextrose (D50w Syringe) 25 ml Q15M PRN IV DECREASED GLUCOSE; Start 01/17/19 at 11:00 Dextrose (D50w Syringe) 50 ml Q15M PRN IV DECREASED GLUCOSE; Start 01/17/19 at 11:00 Glucagon (Glucagen) 1 mg Q15M PRN IM DECREASED GLUCOSE; Start 01/17/19 at 11:00 Glucose (Glutose) 15 gm Q15M PRN BUCCAL DECREASED GLUCOSE; Start 01/17/19 at 11:00 Collagenase (Santyl) 1 applic DAILY TOP Last administered on 03/13/19 08:55; Admin Dose 1 APPLIC; Start 01/17/19 at 17:00 Carvedilol (Coreg) 3.125 mg BID PO Last administered on 03/13/19 08:53; Admin Dose 3.125 MG; Start 01/21/19 at 09:00 Sodium Hypochlorite (Dakins Diluted ()) 1 applic DAILY TP Last administered on 03/13/19 08:54; Admin Dose 1 APPLIC; Start 01/28/19 at 09:40 Citalopram Hydrobromide (Celexa) 10 mg DAILY PO Last administered on 03/13/19 08:52; Admin Dose 10 MG; Start 01/30/19 at 09:00 Insulin Aspart (Novolog Insulin Pen) NOVOLOG *MILD* ALGORITHM WITH MEALS BEDTIME SC Last administered on 03/12/19 12:11; Admin Dose 1 UNIT; Start 01/30/19 at 08:00 Baclofen (Lioresal) 5 mg TID PO Last administered on 03/13/19 08:54; Admin D ose 5 MG; Start 02/01/19 at 21:00 Lorazepam (Ativan) 0.5 mg Q8H PRN PO ANXIETY Last administered on 03/12/19 20:16; Admin Dose 0.5 MG; Start 02/02/19 at 12:00 Diazepam (Valium) 2 mg TID PRN PO anxiety Last administered on 03/13/19 08:57; Admin Dose 2 MG; Start 02/11/19 at 13:00 Clonidine (Catapres) 0.1 mg Q8H PRN PO SBP>170; Start 02/19/19 at 11:30 Polyethylene Glycol (Miralax) 17 gm DAILY PRN PO CONSTIPATION Last administered on 02/25/19 17:10; Admin Dose 17 GM; Start 02/25/19 at 13:00 Polyethylene Glycol (Miralax) 17 gm BID PO Last administered on 03/12/19 20:16; Admin Dose 17 GM; Start 02/26/19 at 14:30 Docusate Sodium (Colace) 100 mg BID PO Last administered on 03/13/19 08:52; Admin Dose 100 MG; Start 02/26/19 at 14:30 Miscellaneous Information (*Order Clarification Bulletin) MEDICATION REQUIRES CLARIFICATION:PLE... Q8H XX ; Start 03/01/19 at 09:30 Enoxaparin Sodium (Lovenox) 40 mg DAILY SC ; Start 03/07/19 at 09:00 Multivitamins Therapeutic (Theragran) 1 tab DAILY PO Last administered on 03/13/19 08:54; Admin Dose 1 TAB; Start 03/11/19 at 15:00 Ascorbic Acid (Vitamin C) 500 mg BID PO Last administered on 03/13/19 08:53; Admin Dose 500 MG; Start 03/11/19 at 21:00 Oxycodone/ Acetaminophen (Percocet (5/ 325)) 1 tab Q12H PRN PO MODERATE PAIN LEVEL 4-6 Last administered on 03/13/19 02:12; Admin Dose 1 TAB; Start 03/13/19 at 00:00 SHELBIE MARTINES March 13, 2019 12:12
[2019-03-13] MEDS: OXYCODONE/ACETAMINOPHEN (5/325) TAB PO PRN ×2 (12:38→21:13)
--- NOTE | 2019-03-13 13:35 | PN ---
Date/Time of Note Date/Time of Note DATE: 03/13/19 TIME: 13:33 Assessment/Plan Lines/Catheters IV Catheter Type (from [facility]): Peripheral IV Valadez in Place (from [facility]): No Assessment/Plan Chief Complaint/Hosp Course 1. Multiple wounds: + Wound cultures; wounds healing -Continue local care> cont same tx as outpatient: Placement pending -frequent turning and off-loading -low air loss mattress -vitamin c -short term zinc -optimize nutrition -Debridement as needed 2. Pneumoperitoneum with likely perforation of the bladder. Resolved -Diet as tolerated -DC okay from surgical standpoint. Will need urology follow-up 3. Hypochromic anemia: Status post PRBC transfusion, H&H stable -Monitor and transfuse as needed 4. UTI: -abx per sensitivity -frequent bladder emptying/cath care 5. Transaminitis: Likely 2/2 #5 -Trend 6. NSTEMI: -Cardiac optimization>defer to cards 7. Possible left knee effusion -Per medical team; consider Ortho consult 8. Anxiety: -Anxiolytics as needed -Psych optimization Thank you. Patient seen and examined in collaboration with Dr. Osei Sanford. Subjective 24 Hr Interval Summary No fevers, chills, sob, congested cough, cp, palpitations, keita, dizziness, n/v/d/dysuria. Exam/Review of Systems Vital Signs Vitals Vital Signs Date Temp Pulse Resp B/P (MAP) Pulse Ox O2 O2 Flow FiO2 Time Delivery Rate 03/13/19 97.7 61 18 146/70 100 08:46 (95) 03/11/19 Room Air 14:05 Intake and Output 03/12/19 03/12/19 03/13/19 1515:00 23:00 07:00 IntakeIntake Total 1250 ml BalanceBalance 1250 ml Exam Free Text/Dictation Constitutional: NAD, well developed; somnolent Psych: nl mood Head: normocephalic, atraumatic Eyes: nl conjunctiva, EOMI, nl lids, nl sclera ENMT: nl external ears & nose, no nl lips & teeth (poor dentition), mucosa pink and moist Neck: supple, non-tender; No jvd Respiratory: normal air movement; No congested cough, No labored breathing Cardiovascular: regular rate and rhythm, nl pulses; No edema Gastrointestinal: soft, non-distended, min tender, no rebound Genitourinary - Female: nl external genitalia Musculoskeletal: nl extremities to inspection, Extremities: normal pulses Neurological: nl speech, no normal strength (generalized weakness) Skin: No rash or lesions, left hip wound: packed, scant drainage, granulating, no odor; sacral wound: Packed, scant drainage Lymph: nl lymph nodes MASSIMO WATKINS NP March 13, 2019 13:35
[2019-03-13 14:54] VITALS: BP 154/71; PULSE 62; RESP 17
--- NOTE | 2019-03-13 15:46 | PN ---
Date/Time of Note Date/Time of Note DATE: 03/13/19 TIME: 15:45 Assessment/Plan VTE Prophylaxis Risk score (from Nsg)>0 risk: 5 SCD applied (from Nsg): Yes Pharmacological prophylaxis: heparin Lines/Catheters IV Catheter Type (from Nrsg): Peripheral IV Urinary Cath still in place: No Assessment/Plan Hospital Course EXAM: Well appearing, in NAD, Aox3 RRR CTAB Soft nt nd Contracted LEs L hip pressure ulcer 59 yo female with chronic debility and leg weakness who presented with sepsis, severe anemia, and perforated viscus B/l LE weakness 2.2 severe knee OA bilaterally: - PT/OT Perforated viscus: - resolved Hip OM: - s/p Abx course per ID, resolved - Valium TID PRN Prophylaxis: SCDs, Protonix Discharge planning; To SNF when accepted. Antibiotics are completed. Alternatively could return to previous living situation if family is willing to accept Results 24hrs Laboratory Tests Test 03/12/19 17:01 03/12/19 20:14 03/13/19 08:52 03/13/19 12:36 Bedside Glucose 133 164 116 110 Subjective 24 Hr Interval Summary Free Text/Dictation No change to clinical status Comfortable Exam/Review of Systems Exam Vitals Vital Signs Date Temp Pulse Resp B/P (MAP) Pulse Ox O2 O2 Flow FiO2 Time Delivery Rate 03/13/19 98.3 62 17 154/71 97 14:54 (98) 03/11/19 Room Air 14:05 Intake and Output 03/12/19 03/12/19 03/13/19 1515:00 23:00 07:00 IntakeIntake Total 1250 ml BalanceBalance 1250 ml Results Results 24hrs Laboratory Tests Test 03/12/19 17:01 03/12/19 20:14 03/13/19 08:52 03/13/19 12:36 Bedside Glucose 133 164 116 110 Medications Medication Current Medications Ipratropium [place] (Atrovent Hfa) 4 puff Q2H RESP THERAPY PRN INH SHORTNESS OF BREATH; Start 01/17/19 at 00:00 Acetaminophen (Tylenol Liquid) 650 mg Q6H PRN PO PAIN LEVEL 1-3 OR FEVER; Start 01/17/19 at 00:00 Miscellaneous Information 1 ea NOTE XX ; Start 01/17/19 at 11:00 Glucose (Glutose) 15 gm Q15M PRN PO DECREASED GLUCOSE; Start 01/17/19 at 11:00 Glucose (Glutose) 22.5 gm Q15M PRN PO DECREASED GLUCOSE; Start 01/17/19 at 11:00 Dextrose (D50w Syringe) 25 ml Q15M PRN IV DECREASED GLUCOSE; Start 01/17/19 at 11:00 Dextrose (D50w Syringe) 50 ml Q15M PRN IV DECREASED GLUCOSE; Start 01/17/19 at 11:00 Glucagon (Glucagen) 1 mg Q15M PRN IM DECREASED GLUCOSE; Start 01/17/19 at 11:00 Glucose (Glutose) 15 gm Q15M PRN BUCCAL DECREASED GLUCOSE; Start 01/17/19 at 11:00 Collagenase (Santyl) 1 applic DAILY TOP Last administered on 03/13/19 08:55; Admin Dose 1 APPLIC; Start 01/17/19 at 17:00 Carvedilol (Coreg) 3.125 mg BID PO Last administered on 03/13/19 08:53; Admin Dose 3.125 MG; Start 01/21/19 at 09:00 Sodium Hypochlorite (Dakins Diluted ()) 1 applic DAILY TP Last administered on 03/13/19 08:54; Admin Dose 1 APPLIC; Start 01/28/19 at 09:40 Citalopram Hydrobromide (Celexa) 10 mg DAILY PO Last administered on 03/13/19 08:52; Admin Dose 10 MG; Start 01/30/19 at 09:00 Insulin Aspart (Novolog Insulin Pen) NOVOLOG *MILD* ALGORITHM WITH MEALS BEDTIME SC Last administered on 03/12/19 12:11; Admin Dose 1 UNIT; Start 01/30/19 at 08:00 Baclofen (Lioresal) 5 mg TID PO Last administered on 03/13/19 12:37; Admin Dose 5 MG; Start 02/01/19 at 21:00 Lorazepam (Ativan) 0.5 mg Q8H PRN PO ANXIETY Last administered on 03/12/19 20:16; Admin Dose 0.5 MG; Start 02/02/19 at 12:00 Diazepam (Valium) 2 mg TID PRN PO anxiety Last administered on 03/13/19 08:57; Admin Dose 2 MG; Start 02/11/19 at 13:00 Clonidine (Catapres) 0.1 mg Q8H PRN PO SBP>170; Start 02/19/19 at 11:30 Polyethylene Glycol (Miralax) 17 gm DAILY PRN PO CONSTIPATION Last administered on 02/25/19 17:10; Admin Dose 17 GM; Start 02/25/19 at 13:00 Polyethylene Glycol (Miralax) 17 gm BID PO Last administered on 03/12/19at 20:16; Admin Dose 17 GM; Start 02/26/19 at 14:30 Docusate Sodium (Colace) 100 mg BID PO Last administered on 03/13/19 08:52; Admin Dose 100 MG; Start 02/26/19 at 14:30 Miscellaneous Information (*Order Clarification Bulletin) MEDICATION REQUIRES CLARIFICATION:PLE... Q8H XX ; Start 03/01/19 at 09:30 Enoxaparin Sodium (Lovenox) 40 mg DAILY SC ; Start 03/07/19 at 09:00 Multivitamins Therapeutic (Theragran) 1 tab DAILY PO Last administered on 03/13/19 08:54; Admin Dose 1 TAB; Start 03/11/19 at 15:00 Ascorbic Acid (Vitamin C) 500 mg BID PO Last administered on 03/13/19 08:53; Admin Dose 500 MG; Start 03/11/19 at 21:00 Oxycodone/ Acetaminophen (Percocet (5/ 325)) 1 tab Q8H PRN PO MODERATE PAIN LEVEL 4-6 Last administered on 03/13/19at 12:38; Admin Dose 1 TAB; Start 03/13/19 at 12:30 SONAL ALBERT MD March 13, 2019 15:46
[2019-03-13 20:22] VITALS: BP 141/79; PULSE 66; RESP 18
[2019-03-14 01:31] VITALS: BP 108/61; PULSE 53; RESP 18
[2019-03-14] MEDS: OXYCODONE/ACETAMINOPHEN (5/325) TAB PO PRN ×2 (08:01→15:58)
[2019-03-14 08:10] VITALS: BP 159/76; PULSE 58; RESP 15
[2019-03-14] MEDS: ASCORBIC ACID 500 MG TAB PO SCH ×2 (08:31→20:14)
[2019-03-14] MEDS: DOCUSATE SODIUM 100 MG CAP PO SCH ×2 (08:31→20:14)
[2019-03-14] MEDS: CITALOPRAM 20 MG TAB PO SCH (08:32)
[2019-03-14] MEDS: BACLOFEN 10 MG TAB PO SCH ×3 (08:32→20:15)
[2019-03-14] MEDS: MULTIVITAMINS THERAPEUTIC TAB PO SCH (08:32)
[2019-03-14] MEDS: COLLAGENASE 5 GM (UD JAR) TOP SCH (08:33)
[2019-03-14] MEDS: DAKINS 0.0125%(1/40) 473 ML SOLUTION TP SCH (08:33)
[2019-03-14] MEDS: BALSAM PERU/CASTOR OIL 60 GM TUBE TOP SCH ×2 (08:33→21:00)
[2019-03-14] MEDS: INSULIN ASPART [NOVOLOG] 3 ML PEN SC SCH ×4 (08:35→20:19)
[2019-03-14] MEDS: POLYETHYLENE GLYCOL 17 GM PACKET PO SCH ×2 (08:40→20:13)
[2019-03-14] MEDS: ENOXAPARIN 40 MG/0.4 ML SYG SC SCH (08:40)
[2019-03-14] MEDS: DIAZEPAM 2 MG TAB PO PRN (10:28)
--- NOTE | 2019-03-14 11:16 | PN ---
Date/Time of Note Date/Time of Note DATE: 03/14/19 TIME: 11:15 Assessment/Plan VTE Prophylaxis Risk score (from Ns)>0 risk: 5 SCD applied (from Ns): Yes Pharmacological prophylaxis: NA/contraindicated Pharm contraindication: other Lines/Catheters IV Catheter Type (from Nrsg): Peripheral IV Urinary Cath still in place: No Assessment/Plan Hospital Course 59 yo female with chronic debility and leg weakness who presented with sepsis, severe anemia, and perforated viscus B/l LE weakness 2.2 severe knee OA bilaterally: - PT/OT Perforated viscus: - resolved Hip OM: - s/p Abx course per ID, resolved - Valium TID PRN Prophylaxis: SCDs, Protonix Discharge planning; To SNF when accepted. Antibiotics are completed. Alternatively could return to previous living situation if family is willing to accept Results 24hrs Laboratory Tests Test 03/13/19 12:36 03/13/19 17:01 03/13/19 20:16 03/14/19 08:29 Bedside Glucose 110 163 121 162 Subjective 24 Hr Interval Summary Constitutional: no complaints Exam/Review of Systems Exam Vitals Vital Signs Date Temp Pulse Resp B/P (MAP) Pulse Ox O2 O2 Flow FiO2 Time Delivery Rate 03/14/19 97.8 58 15 159/76 98 Room Air 08:10 (103) Intake and Output 03/13/19 03/13/19 03/14/19 1515:00 23:00 07:00 IntakeIntake Total 750 ml 350 ml BalanceBalance 750 ml 350 ml Constitutional: alert Respiratory: clear to auscultation Cardiovascular: regular rate and rhythm Gastrointestinal: soft; No distended Musculoskeletal: nl extremities to inspection Results Results 24hrs Laboratory Tests Test 03/13/19 12:36 03/13/19 17:01 03/13/19 20:16 03/14/19 08:29 Bedside Glucose 110 163 121 162 Medications Medication Current Medications Ipratropium [place] (Atrovent Hfa) 4 puff Q2H RESP THERAPY PRN INH SHORTNESS OF BREATH; Start 01/17/19 at 00:00 Acetaminophen (Tylenol Liquid) 650 mg Q6H PRN PO PAIN LEVEL 1-3 OR FEVER; Start 01/17/19 at 00:00 Miscellaneous Information 1 ea NOTE XX ; Start 01/17/19 at 11:00 Glucose (Glutose) 15 gm Q15M PRN PO DECREASED GLUCOSE; Start 01/17/19 at 11:00 Glucose (Glutose) 22.5 gm Q15M PRN PO DECREASED GLUCOSE; Start 01/17/19 at 11:00 Dextrose (D50w Syringe) 25 ml Q15M PRN IV DECREASED GLUCOSE; Start 01/17/19 at 11:00 Dextrose (D50w Syringe) 50 ml Q15M PRN IV DECREASED GLUCOSE; Start 01/17/19 at 11:00 Glucagon (Glucagen) 1 mg Q15M PRN IM DECREASED GLUCOSE; Start 01/17/19 at 11:00 Glucose (Glutose) 15 gm Q15M PRN BUCCAL DECREASED GLUCOSE; Start 01/17/19 at 11:00 Collagenase (Santyl) 1 applic DAILY TOP Last administered on 03/14/19 08:33; Admin Dose 1 APPLIC; Start 01/17/19 at 17:00 Carvedilol (Coreg) 3.125 mg BID PO Last administered on 03/14/19 08:31; Admin Dose 3.125 MG; Start 01/21/19 at 09:00 Sodium Hypochlorite (Dakins Diluted ()) 1 applic DAILY TP Last administered on 03/14/19 08:33; Admin Dose 1 APPLIC; Start 01/28/19 at 09:40 Citalopram Hydrobromide (Celexa) 10 mg DAILY PO Last administered on 03/14/19 08:32; Admin Dose 10 MG; Start 01/30/19 at 09:00 Insulin Aspart (Novolog Insulin Pen) NOVOLOG *MILD* ALGORITHM WITH MEALS BEDTIME SC Last administered on 03/14/19 08:35; Admin Dose 1 UNIT; Start 01/30/19 at 08:00 Baclofen (Lioresal) 5 mg TID PO Last administered on 03/14/19 08:32; Admin Dose 5 MG; Start 02/01/19 at 21:00 Lorazepam (Ativan) 0.5 mg Q8H PRN PO ANXIETY Last administered on 03/12/19 20:16; Admin Dose 0.5 MG; Start 02/02/19 at 12:00 Diazepam (Valium) 2 mg TID PRN PO anxiety Last administered on 03/14/19 10:28; Admin Dose 2 MG; Start 02/11/19 at 13:00 Clonidine (Catapres) 0.1 mg Q8H PRN PO SBP>170; Start 02/19/19 at 11:30 Polyethylene Glycol (Miralax) 17 gm DAILY PRN PO CONSTIPATION Last administered on 02/25/19 17:10; Admin Dose 17 GM; Start 02/25/19 at 13:00 Polyethylene Glycol (Miralax) 17 gm BID PO Last administered on 03/13/19 20:17; Admin Dose 17 GM; Start 02/26/19 at 14:30 Docusate Sodium (Colace) 100 mg BID PO Last administered on 03/14/19 08:31; Admin Dose 100 MG; Start 02/26/19 at 14:30 Enoxaparin Sodium (Lovenox) 40 mg DAILY SC ; Start 03/07/19 at 09:00 Multivitamins Therapeutic (Theragran) 1 tab DAILY PO Last administered on 03/14/19at 08:32; Admin Dose 1 TAB; Start 03/11/19 at 15:00 Ascorbic Acid (Vitamin C) 500 mg BID PO Last administered on 03/14/19at 08:31; Admin Dose 500 MG; Start 03/11/19 at 21:00 Oxycodone/ Acetaminophen (Percocet (5/ 325)) 1 tab Q8H PRN PO MODERATE PAIN LEVEL 4-6 Last administered on 03/14/19at 08:01; Admin Dose 1 TAB; Start 03/13/19 at 12:30 Nystatin (Nystatin Cr) 1 applic BID TOP ; Start 03/14/19 at 21:00 ALLISON WOLFF March 14, 2019 11:16
--- NOTE | 2019-03-14 11:43 | PN ---
Date/Time of Note Date/Time of Note DATE: 03/14/19 TIME: 11:42 Assessment/Plan Lines/Catheters IV Catheter Type (from Rust): Peripheral IV Valadez in Place (from Rust): No Assessment/Plan Chief Complaint/Hosp Course 1. Multiple wounds: + Wound cultures; wounds healing -Continue local care> cont same tx as outpatient: Placement pending -frequent turning and off-loading -low air loss mattress -vitamin c -short term zinc -optimize nutrition -Debridement as needed 2. Pneumoperitoneum with likely perforation of the bladder. Resolved -Diet as tolerated -DC okay from surgical standpoint. Will need urology follow-up 3. Hypochromic anemia: Status post PRBC transfusion, H&H stable -Monitor and transfuse as needed 4. UTI: -abx per sensitivity -frequent bladder emptying/cath care 5. Transaminitis: Likely 2/2 #5 -Trend 6. NSTEMI: -Cardiac optimization>defer to cards 7. Possible left knee effusion -Per medical team; consider Ortho consult 8. Anxiety: -Anxiolytics as needed -Psych optimization Thank you Subjective 24 Hr Interval Summary No fevers, chills, sob, congested cough, cp, palpitations, keita, dizziness, n/v/d/dysuria. Exam/Review of Systems Vital Signs Vitals Vital Signs Date Temp Pulse Resp B/P (MAP) Pulse Ox O2 O2 Flow FiO2 Time Delivery Rate 03/14/19 97.8 58 15 159/76 98 Room Air 08:10 (103) Intake and Output 03/13/19 03/13/19 03/14/19 1515:00 23:00 07:00 IntakeIntake Total 750 ml 350 ml BalanceBalance 750 ml 350 ml Exam Free Text/Dictation Constitutional: NAD, well developed; somnolent Psych: nl mood Head: normocephalic, atraumatic Eyes: nl conjunctiva, EOMI, nl lids, nl sclera ENMT: nl external ears & nose, no nl lips & teeth (poor dentition), mucosa pink and moist Neck: supple, non-tender; No jvd Respiratory: normal air movement; No congested cough, No labored breathing Cardiovascular: regular rate and rhythm, nl pulses; No edema Gastrointestinal: soft, non-distended, min tender, no rebound Genitourinary - Female: nl external genitalia Musculoskeletal: nl extremities to inspection, Extremities: normal pulses Neurological: nl speech, no normal strength (generalized weakness) Skin: No rash or lesions, left hip wound: packed, scant drainage, granulating, no odor; sacral wound: Packed, scant drainage Lymph: nl lymph nodes ALEK HANDLEY MD March 14, 2019 11:43
[2019-03-14 13:45] VITALS: BP 122/67; PULSE 63; RESP 16
[2019-03-14] MEDS ORDERED: ENOX40DI2 SC (15:28)
[2019-03-14] MEDS ORDERED: CARV3.1260 PO (15:28)
[2019-03-14] MEDS ORDERED: SODI473S5 TP (15:28)
[2019-03-14] MEDS ORDERED: VAL2 PO (15:28)
[2019-03-14] MEDS ORDERED: BACL10TA PO (15:28)
[2019-03-14] MEDS ORDERED: CITA20TA11 PO (15:28)
[2019-03-14] MEDS ORDERED: LORA-441 PO (15:28)
[2019-03-14] MEDS ORDERED: ASC500 PO (15:28)
[2019-03-14] MEDS ORDERED: SAN30GM TOP (15:28)
[2019-03-14] MEDS ORDERED: MULTI PO (15:28)
[2019-03-14] MEDS ORDERED: OXYC-438 PO (15:28)
[2019-03-14] MEDS ORDERED: NYST15CR28 TOP (15:28)
[2019-03-14] MEDS ORDERED: BALS60OI TOP (15:28)
[2019-03-14] MEDS ORDERED: POLY17PO6 PO ×2 (15:28)
[2019-03-14] MEDS ORDERED: DOCU-144 PO (15:28)
[2019-03-14] MEDS: LORAZEPAM 0.5 MG TAB PO PRN (17:19)
--- NOTE | 2019-03-14 19:11 | DS ---
Date/Time of Note Date/Time of Note DATE: 03/14/19 TIME: 19:04 Discharge Summary Admission/Discharge Info Admit Date/Time Jan 16, 2019 at 23:33 Discharge Date/Time March 14, 2019 Discharge Diagnosis 59 yo female with chronic debility and leg weakness who presented with sepsis, severe anemia, and perforated viscus B/l LE weakness 2.2 severe knee OA bilaterally: - PT/OT Perforated viscus: - resolved -Surgical intervention was not required Hip OM: - s/p Abx course per ID, resolved Muscle spasms - Valium TID PRN Debility secondary to chronic spinal disease -FCI placement Patient Condition: Good Hospital Course Patient is a 59 yo female with chronic debility and leg weakness who presented with sepsis, severe anemia, and perforated viscus. Patient was initially admitted to the ICU for septic shock and respiratory failure, patient had evidence of a perforated viscus but exact etiology was unclear but was thought to be secondary to ruptured bladder. Patient was seen by surgery as well as urology and due to critical status recommendation was for conservative treatment with IV antibiotics. Patient's condition did improve and septic shock did resolve, subsequent imaging showed resolution of the perforated viscus and no surgery was ultimately required. Patient did have multiple decubitus ulcers as patient has chronic debility due to chronic spinal condition, patient was noted to have osteomyelitis of the hip and received a course of antibiotics per ID. Patient had a prolonged hospitalization due to issues with placement, patient was ultimately placed in a long-term. On the day of discharge patient vitals, labs and physical exam are stable. Patient required no further antibiotics at the facility as she completed her course during the hospitalization. Home Meds Active Scripts Multivitamins* (Theragran*) 1 Tab Tab, 1 TAB PO DAILY, #60 TAB Prov:ALLISON WOLFF 03/14/19 Ascorbic Acid (Vitamin C) 500 Mg Tab, 500 MG PO BID, #60 TAB Prov:ALLISON WOLFF 03/14/19 Sodium Hypochlorite (Di-Dak-Kassandra) 473 Ml Solution, 1 APPLIC TP DAILY, #1 TUB Prov:ALLISON WOLFF 03/14/19 Nystatin* (Nystatin*) 15 Gm Cr, 1 APPLIC TOP BID, #1 TUB Prov:ALLISON WOLFF 03/14/19 Collagenase* (Santyl*) 30 Gm Oint..gm., 1 APPLIC TOP DAILY, #1 TUB Prov:ALLISON WOLFF 03/14/19 Balsam [place] Oil (Venelex Ointment) 60 Gm Oint..gm., 1 APPLIC TOP BID, #1 TUB Prov:ALLISON WOLFF 03/14/19 Polyethylene Glycol* (Miralax*) 17 Gm Powd.pack, 17 GM PO DAILY PRN for CONSTIPATION, #60 Prov:ALLISON WOLFF 03/14/19 Polyethylene Glycol* (Miralax*) 17 Gm Powd.pack, 17 GM PO BID, #60 Prov:ALLISON WOLFF 03/14/19 Docusate Sodium* (Colace*) 100 Mg Capsule, 100 MG PO BID, #60 CAP Prov:ALLISON WOLFF 03/14/19 Lorazepam* (Ativan*) 0.5 Mg Tablet, 0.5 MG PO Q8H PRN for ANXIETY, #60 TAB Prov:ALLISON WOLFF 03/14/19 Oxycodone HCl/Acetaminophen (Oxycodone-Acetaminophen 5-325) 1 Each Tablet, 1 TAB PO Q8H PRN for MODERATE PAIN LEVEL 4-6, #30 TAB Prov:ALLISON WOLFF 03/14/19 Diazepam* (Valium*) 2 Mg Tab, 2 MG PO TID PRN for anxiety, #30 TAB Prov:ALLISON WOLFF 03/14/19 Citalopram Hydrobromide* (Celexa*) 20 Mg Tablet, 10 MG PO DAILY, #60 TAB Prov:ALLISON WOLFF 03/14/19 Carvedilol* (Carvedilol*) 3.125 Mg Tablet, 3.125 MG PO BID, #60 TAB Prov:ALLISON WOLFF 03/14/19 Enoxaparin Sodium* (Enoxaparin Sodium*) 40 Mg/0.4 Ml Syringe, 40 MG SC DAILY, #60 SYR Prov:MARIELLAEVANSRonni 03/14/19 Baclofen* (Baclofen*) 10 Mg Tablet, 5 MG PO TID, #60 TAB Prov:ALLISON WOLFF 03/14/19 Reported Medications Gabapentin* (Gabapentin*) 100 Mg Capsule, 100 MG PO TID, #90 CAP 01/20/18 Follow-up Plan Follow up with physicians at the longterm [facility] Primary Care Provider Time spent on discharge: > 30 minutes ALLISON WOLFF March 14, 2019 19:11
[2019-03-14 19:48] VITALS: BP 127/71; PULSE 71; RESP 17
[2019-03-14] MEDS ORDERED: NYSTATIN 15 GM CR TOP SCH (21:00)
== END 2019-03-14 22:00 | DRG 871 ==
LOC: E/R 20:59 → ICU 23:33 → MERGE 23:33 → PP2 01-21 12:04 → 5EC 02-06
PROVIDERS: ADMIT Family Medicine; ATTEND Internal Medicine
PROC: 02HV33Z Insertion of Infusion Device into Superior Vena Cava, Percutaneous Approach (ICD-10-PCS; principal; 2019-01-16)
PROC: 0BH18EZ Insertion of Endotracheal Airway into Trachea, Via Natural or Artificial Opening Endoscopic (ICD-10-PCS; 2019-01-16)
PROC: 5A1945Z Respiratory Ventilation, 24-96 Consecutive Hours (ICD-10-PCS; 2019-01-16)
PROC: 30233N1 Transfusion of Nonautologous Red Blood Cells into Peripheral Vein, Percutaneous Approach (ICD-10-PCS; 2019-01-16)
PROC: 30233N1 Transfusion of Nonautologous Red Blood Cells into Peripheral Vein, Percutaneous Approach (ICD-10-PCS; 2019-01-19)
DX: A41.9 Sepsis, unspecified organism (principal); L89.224 Pressure ulcer of left hip, stage 4; R65.21 Severe sepsis with septic shock; G92 Toxic encephalopathy; J96.01 Acute respiratory failure with hypoxia; N17.0 Acute kidney failure with tubular necrosis; I21.A1 Myocardial infarction type 2; E87.2 Acidosis; D68.9 Coagulation defect, unspecified; I42.9 Cardiomyopathy, unspecified; E87.0 Hyperosmolality and hypernatremia; F33.9 Major depressive disorder, recurrent, unspecified; M86.9 Osteomyelitis, unspecified; M17.0 Bilateral primary osteoarthritis of knee; D69.6 Thrombocytopenia, unspecified; K66.8 Other specified disorders of peritoneum; E88.09 Other disorders of plasma-protein metabolism, not elsewhere classified; K75.9 Inflammatory liver disease, unspecified; E87.6 Hypokalemia; I25.10 Atherosclerotic heart disease of native coronary artery without angina pectoris; D50.9 Iron deficiency anemia, unspecified; F41.9 Anxiety disorder, unspecified; R25.2 Cramp and spasm; N32.89 Other specified disorders of bladder; N30.81 Other cystitis with hematuria; B96.20 Unspecified Escherichia coli [E. coli] as the cause of diseases classified elsewhere; E83.42 Hypomagnesemia; Z22.322 Carrier or suspected carrier of Methicillin resistant Staphylococcus aureus
CPT/HCPCS: 31500; 36415; 36430; 36600; 70450; 71045; 71250; 72192; 73560; 73721; 74176; 74177; 76775; 80048; 80053; 80202; 81001; 81003; 82043; 82270; 82465; 82550; 82553; 82607; 82728; 82746; 82803; 82962; 83010; 83036; 83540; 83605; 83615; 83690; 83735; 84100; 84134; 84155; 84165; 84300; 84443; 84478; 84484; 85025; 85045; 85220; 85240; 85362; 85378; 85384; 85610; 85651; 85730; 86140; 86644; 86703; 86704; 86709; 86803; 86850; 86900; 86901; 86920; 87070; 87081; 87086; 87340; 92526; 92610; 93005; 93306; 94002; 94003; 94770; 96365; 96367; 97110; 97162; 97165; 97530; 97535; A4310; C1751; C9113; J0360; J0610; J0692; J1170; J1650; J1815; J2060; J2270; J2543; J2916; J2997; J3010; J3370; J3475; J3480; J7030; J7040; J7070; P9016; Q9967